=== PATIENT | female | born 1945 | race Caucasian/White ===

== ENCOUNTER 2016-08-13 10:58 | Inpatient (IN) | payer MEDICARE ==
[2016-08-13] VITALS (11 sets, daily range): BP systolic 112–135; BP diastolic 54–78; PULSE 71–93; RESP 14–19; O2SAT 90–98
[~2016-08-13] VITALS: Ht 157.5 cm; Wt 99.8 kg
[~2016-08-13 10:58] MED LIST: ALBU18HF INH; ALPR0.5T8 PO; AMLO5TAB2 PO; ARFO15VI2 IH; ATRINH INH; BUDE1AMP2 IH; CHOL40003 PO; CYCL5TAB PO; FLUT16SP NS; FURO-128 PO; HYDR-4003 PO; LEVO200T6 PO; LISI-567 PO; LOPE1TAB13 PO; MAGN400T4 PO; METO25TA6 PO; OLAN2.5T20 PO; ONDA4TAB9 PO; OXYC5TAB72 PO; POLY17PO6 PO; POTA-62 PO; RNT300T PO; TRAZ-118 PO; VENL37.57 PO
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
[2016-08-13] MEDS ORDERED: HYDROmorphone 0.5 mg/0.5 mL iSecure Syringe IVPUSH ONE (11:15)
[2016-08-13] MEDS ORDERED: Ondansetron 2 mg/mL 2 mL Inj IVPUSH ONE (11:15)
[2016-08-13] MEDS ORDERED: 0.9% Sodium Chloride 1,000 ML IV ONE ×3 (11:15→15:05)
[2016-08-13 11:42] LABS: BASOPHILS % (AUTO) 0.6 % (0-3); EOSINOPHILS % (AUTO) 0.6 % (0-5); MONOCYTES % (AUTO) 6.9 % (4-12); Mean Corpuscular Hemoglobin 32.3 pg (27.0-35.0); Mean Corpuscular Volume 88.3 fL (81-100); NEUTROPHILS % (AUTO) 76.9 % (40-74); Platelet Count 181 bil/L (150-400)
[2016-08-13] MEDS ORDERED: OMEP20TA86 PO (11:52)
[2016-08-13] MEDS ORDERED: D5 0.45% NaCl + KCl 40 mEq/L 1,000 ML IV STA (12:17)
[2016-08-13] MEDS ORDERED: Potassium Chloride 20 mEq/15 mL 15mL Oral Soln TUBE SCH (12:30)
--- NOTE | 2016-08-13 13:17 | DRSVH ---
PROCEDURE: CT BRAIN WITHOUT CONTRAST ([id number]) INDICATIONS: altered LOC TECHNIQUE: Noncontrast 4.5 mm thick angled axial sections acquired from the foramen magnum to the vertex, with c oronal reformats. COMPARISON: None. FINDINGS: Image quality: Excellent. CSF spaces: Basal cisterns are patent. No extra-axial fluid collections. The ventricles are symmet song in size and shape. Brain: No intracranial bleeds or masses. There is cerebral volume loss for age, with resultant vent ricular and sulcal prominence. There are periventricular and deep white matter chronic small vessel ischemic changes. There is intracranial internal carotid artery atherosclerosis. Skull and face: Calvarium and visualized facial bones appear intact, without suspicious lesions. Sinuses: Visualized sinuses and mastoids are clear. IMPRESSION: No definite, acute intracranial abnormality is seen. If there is strong clinical suspicion for an acute stroke, please consider an MRI for further evaluat ion, as it is more sensitive (assuming that there is no contraindication to MRI). Note is made of age-appropriate brain parenchymal volume loss and chronic small vessel ischemic lozano es. Dictated by: Olayinka Thurman M.D. on 08/13/2016 at 12:14 Approved by: Olayinka Thurman M.D. on 08/13/2016 at 12:14
--- NOTE | 2016-08-13 13:19 | DRSVH ---
PROCEDURE: X-RAY CHEST ONE VIEW, PORTABLE ([id number]) INDICATIONS: SHORTNESS OF BREATH TECHNIQUE: One view of the chest was acquired. COMPARISON: [facility], CT, CT ABD PELVIS W CON, 06/25/2016, 14:46. [facility], CR, XR CHEST 1VW (PORTABLE), 05/22/2016, 19:51. FINDINGS: Surgical changes and devices: None. Lungs and pleura: No pleural effusions or pneumothorax. Lungs are clear. Mediastinum: Mediastinal contours appear normal. Heart size is normal. Retrocardiac hiatal hernia s table compared to prior examinations. Bones and chest wall: No suspicious bony lesions. Overlying soft tissues appear unremarkable. IMPRESSION: No acute cardiopulmonary disease process. Dictated by: April Serrano MD, PhD on 08/13/2016 at 13:18 Approved by: April Serrano MD, PhD on 08/13/2016 at 13:18
[2016-08-13] MEDS ORDERED: Potassium Chloride 20 mEq/15 mL 15mL Oral Soln PO ONE (13:25)
[2016-08-13] MEDS ORDERED: Potassium Phos (mEq) Inj 40 MEQ in Dextrose 5% 500 ML IV ONE (13:35)
--- NOTE | 2016-08-13 13:44 | DRSVH ---
PROCEDURE: CT ABDOMEN AND PELVIS WITH CONTRAST ([id number]) INDICATIONS: Abd pain TECHNIQUE: After the administration of intravenous contrast, 5 mm thick sections acquired from the diaphragm to the symphysis. 5 mm coronal and sagittal reformats were acquired. For radiation dose reduction, the following was used: automated exposure control, adjustment of mA and/or kV according to patient siz e. COMPARISON: [facility], [place], [place] GASTRIC EMPTYING STUDY, 05/10/2016, 8:49. [facility], CT, CT ABD PANCREATIC PROTOCOL, 02/08/2016, 9:57. [facility], CT, ABD/PELVIS W/ CON (PNL), 11/13/2011, 14:48. [facility], CT, ABD/PELVIS W/CON (PNL), 12/31/2009, 21:38. MR, ABDOMEN W/O CONTRAST, 05/05/2007, 8:06. [facility] [place] , CT, ABD/PELVIS W/CON (PNL), 04/23/2007, 12:59. [facility], CT, CT ABD PELVIS W CON, 06/25/2016, 14:46. FINDINGS: Image quality: Excellent. ABDOMEN: Lung bases: Lung bases are clear. Trace bilateral pleural fluid collections are noted. Heart size is normal. Solid organs: Liver and spleen are normal in size and enhancement. Diffuse fatty infiltration of the liver is noted. Gallbladder is surgically absent. Biliary system is non dilated. Pancreas enhance s normally. Left adrenal nodule stable compared to prior exams. Kidneys demonstrate normal size and e nhancement, without hydronephrosis. Peritoneum and bowel: Moderate size hiatal hernia is noted. Bowel loops demonstrate normal wall thic kness and caliber. Small amount of scattered ascites is noted. No free air. The appendix is enlarged 1.3 cm in diameter. There is circumferential wall thickening involving the majority of the colon. Cir cumferential wall thickening involving the terminal ileum is noted. Scattered diverticuli noted in th e transverse, descending and sigmoid colon. Nodes and vessels: No retroperitoneal or mesenteric adenopathy by size criteria. Aorta and inferior vena cava are normal in size. Miscellaneous: No ventral hernias. Subcutaneous stranding noted in the anterior pelvic wall compatib le with panniculitis. PELVIS: Genitourinary: Bladder wall thickening is noted. Miscellaneous: No inguinal hernias or adenopathy. Bones: Grade 2 L5-S1 isthmic spondylolisthesis is noted. Compression deformity of the T12 vertebral b slade is stable compared to prior examination. Multilevel degenerative disc disease and facet arthropat hy are noted. IMPRESSION: 1. Circumferential wall thickening involving the colon compatible with nonspecific colitis which has progressed in interval since prior examination obtained 06/17/2016. Differential diagnosis includes i nfectious/inflammatory, ischemic and neoplastic etiologies. 2. Circumferential wall thickening involving the terminal ileum has developed interval since the prio r examination. Finding compatible with nonspecific terminal ileitis but may be related to "some backw panda ileitis" secondary to colitis. 3. Enlarged appendix measuring 1.3 cm in diameter which could be related to appendicitis or a reactiv e change associated with colitis. Please correlate with clinical data. 4. Small amount of scattered ascites. 5. Colonic diverticulosis no evidence of diverticulitis. 6. Panniculitis. 7. Hepatic steatosis. 8. Moderate-sized hiatal hernia. 9. Trace bilateral pleural effusions. 10. Urinary bladder wall thickening which could be due to nondistention versus inflammation/infection . Please correlate with clinical and urinalysis data. 11. Stable left adrenal nodule. 12. Findings telephoned to Dr. Sudheer Alva on 08/13/2016 at 1337 hrs. Dictated by: April Serrano MD, PhD on 08/13/2016 at 13:43 Approved by: April Serrano MD, PhD on 08/13/2016 at 13:43
[2016-08-13] MEDS ORDERED: 0.9% Sodium Chloride 1,000 ML IV SCH (14:43)
[2016-08-13] MEDS ORDERED: Thiamine Inj 100 MG, Folic Acid Inj 1 MG, Magnesium Sulfate 50% Inj 2 GM, Multivitamins... IV ONE ×5 (14:45)
[2016-08-13] MEDS ORDERED: AMLO10TA3 PO (14:54)
[2016-08-13] MEDS ORDERED: POTA10TA12 PO (14:59)
[2016-08-13 15:09] LABS: INR 1.01 ratio
--- NOTE | 2016-08-13 15:18 | PCM.HPMED ---
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 In ER, 2L O2, Ct consistent w/ additional ileitis/thickened bladder, Gen Surg-Umberto indicated non-op. poor historian. she continues to say that she is good throughout entire evaluation. tarry stool/altered x 3 days per , last etOH x over 5 days, smoked today. Review of Systems -unable to asses due to poor historian recent dysphagia evaluation at , w/ etoh pt gags per . FAMILY HX no diverticulitis. SOCIAL HX smoker/EtOH 3-5 per day MEDICATIONS Scheduled Amlodipine (Amlodipine) 5 Mg Tablet 5 MG PO DAILY Arformoterol Tartrate (Brovana) 15 Mcg/2 Ml Vial.neb 15 MCG IH BID Budesonide (Budesonide) 1 Mg/2 Ml Ampul.neb 1 MG IH DAILY Cholecalciferol (Vitamin D3) (Vitamin D3) 4,000 Unit Capsule 4,000 UNIT PO DAILY Fluticasone Propionate (Fluticasone Propionate Nasal) 16 Gm [place].susp 2 SPRAY NS DAILY Furosemide (Lasix) 40 Mg Tablet 40 MG PO DAILY Ipratropium [place] (Atrovent HFA) 200 Puff/12.9 Gm Inhaler 2 PUFF INH QID Levothyroxine (Levothyroxine) 200 Mcg Tablet 225 MCG PO DAILY Lisinopril (Lisinopril) 20 Mg Tablet 40 MG PO DAILY Magnesium Oxide (Magnesium Oxide) 400 Mg Tablet 400 MG PO DAILY Metoprolol Tartrate (Metoprolol Tartrate) 25 Mg Tablet 50 MG PO BID Olanzapine (Olanzapine) 2.5 Mg Tablet 2.5 MG PO HS Omeprazole (Omeprazole) 20 Mg Tablet.dr 40 MG PO BID Polyethylene Glycol 3350 (Miralax) 17 Gm Powd.pack 17 GM PO DAILY Potassium Chloride ER (Potassium Chloride ER) 20 Meq Tablet.er 10 MEQ PO BID TAKE WITH FOOD Ranitidine (Zantac) 300 Mg Tab 300 MG PO HS Trazodone (Trazodone) 100 Mg Tablet 100 MG PO HS Venlafaxine (Venlafaxine) 37.5 Mg Tablet 75 MG PO TID Scheduled PRN Albuterol Sulfate (Ventolin HFA Inhaler) 200 Puff/18 Gm Inhaler 2 PUFF INH Q4-6 HRS PRN PRN PRN For Wheezing Alprazolam (Alprazolam) 0.5 Mg Tablet 0.5 MG PO BID PRN PRN For Anxiety Cyclobenzaprine (Cyclobenzaprine) 5 Mg Tablet 5-10 MG PO BID PRN PRN Spasm Hydrocodone-Acetaminophen 5-325 mg (Hydrocodone-Acetaminophen 5-325 mg) 1 Each Tablet 1 TABLET PO BID PRN PRN For Pain Hydrocodone-Acetaminophen 5-325 mg (Hydrocodone-Acetaminophen 5-325 mg) 1 Each Tablet 1 TABLET PO Q4H PRN PRN For Pain Hydrocodone-Acetaminophen 5-325 mg (Hydrocodone-Acetaminophen 5-325 mg) 1 Each Tablet 0.5-1 TABLET PO Q6H PRN PRN For Pain Loperamide/Simethicone (Imodium Multi-Symptom Rel Cplt) 1 Each Tablet 1 EACH PO PRN PRN PRN For Diarrhea or Loose Stool Ondansetron ODT (Zofran ODT) 4 Mg Tablet 4 MG PO Q4H PRN PRN For Nausea oxyCODONE (oxyCODONE) 5 Mg Tablet 5 MG PO Q4H PRN PRN For Moderate Pain PMHX Moderate-severe mitral regurg, diastolic chf(echo 2015 EF 60-65%), htn, hyperlipidemia, CAD (cardiac cath 2013) atrial fibrillation hypothyroidism, Diverticulitis,hiatal hernia,gerd, occasional bright red blood per rectum, colon polyps asthma, copd, pneumonia UTI Knee arthroscopies, back injury Depression and anxiety presesophagus Allergies Coded Allergies: Penicillins (Verified Allergy, Severe, ANAPHYLAXIS, 08/13/16) bupropion (Verified Allergy, Intermediate, NAUSEA, 08/13/16) fluoxetine (Verified Allergy, Unknown, 08/13/16) sulfasalazine (Verified Allergy, Unknown, UNKNOWN, 08/13/16) Uncoded Allergies: FLU VACCINE (Adverse Reaction, Severe, NAUSEA/ VOMITTING, 01/24/16) PMH Social History Hx Alcohol Use: Yes (Whiskey/vodka) Alcoholic Drinks Per Day: reports 2-3 drinks a day. couple ounces per drink Hx Substance Use: No Hx Tobacco Use: Yes (Quit yesterday) Smoking Status: Current Every Day Smoker Exam Vital Signs Vital Sign - Last Date Time Temp Pulse Resp B/P Pulse Ox O2 Delivery O2 Flow Rate FiO2 08/13/16 11:04 36.5 78 18 135/70 98 Nasal Cannula 2 Lab and Diagnostics Labs Exam on admission NAD A and O x 3 mood affect WNL follows commands NC/AT no icterus no injected eyes EOMI PERRL /no pharyngeal lesions/ no oral lesions / hearing intact Supple neck CTAB equal chest rise / no accessory muscle use / speaks in full sentences / no rrw RRR S1 S2 / no mrg / 2+ radial pulses Soft nt nd + BS no hepatosplenomegaly mild bilateral edema no cyanosis no ecchymosis of lower extremities No rash / no jaundice AUGUST symmetrical faces dysarthria fecal tube placed maki dark clear EKG SR103 no ST changes CXR neg UA pending LFT elevated bili/transaminases/alk phos CT a/p grade 2 L5-S1 isthmic spondylolisthesis is noted. Compression deformity of the T12 vertebral body is stable compared to prior examination. Multilevel degenerative disc disease and facet arthropathy are noted. 1. Circumferential wall thickening involving the colon compatible with nonspecific colitis which has progressed in interval since prior examination obtained 06/17/2016. Differential diagnosis includes infectious/inflammatory, ischemic and neoplastic etiologies. 2. Circumferential wall thickening involving the terminal ileum has developed interval since the prior examination. Finding compatible with nonspecific terminal ileitis but may be related to "some backwash ileitis" secondary to colitis. 3. Enlarged appendix measuring 1.3 cm in diameter which could be related to appendicitis or a reactive change associated with colitis. Please correlate with clinical data. 4. Small amount of scattered ascites. 5. Colonic diverticulosis no evidence of diverticulitis. 6. Panniculitis. 7. Hepatic steatosis. 8. Moderate-sized hiatal hernia. 9. Trace bilateral pleural effusions. 10. Urinary bladder wall thickening which could be due to nondistention versus inflammation/infection. Please correlate with clinical and urinalysis data. 11. Stable left adrenal nodule. Result Diagram: 08/13/16 1105 08/13/16 1105 Assessment & Plan Active issues and reason for admission 71-year-old female with ongoing diarrhea/abdominal pain/progressive weakness due to known pancolitis, now spreading to ileum and associated with new hypokalemia and new hepatitis, per family Hx of CHF Colitis/ileitis, leukopenia --cipro/flagyl --pending stool cx, penidng bcx -- Clears, pending EGD and colonoscopy in the morning tarry stool --Q8Hg/ppi IV BID Elevated transaminitis/hyperbilirubinemia -- Contributory EtOH history, pending hepatitis panel, INR Elevated TSH, history of hypothyroidism -- Free T4 pending, consider IV repletion Replete potassium/magnesium -- IV fluid/banana bag thickened bladder wall , hx uti --pending UA CHF, hold home lasix lisinopril mag -metoprolol noncompliatn w/ medications Chronic issues known prior to admission, present on admission Moderate-severe mitral regurg, diastolic chf(echo 2015 EF 60-65%), htn, hyperlipidemia, CAD (cardiac cath 2013) atrial fibrillation asthma, copd, pneumonia Depression and anxiety / EtOH / smoker hiatal hernia,gerd, occasional bright red blood per rectum, colon polyps dysphagia - needs smaller pills on discharge nocturnal hypoxia s/p home O2 script by PCP 06/2016 -- PPI/CIWA/banana bag/nicotine patch Diet npo at midnight, clear for now DVT prophylaxis pending INR full [facility] and plan were discussed with patient family. Winter Vernon MD Aug 13, 2016 15:18
--- NOTE | 2016-08-13 16:47 | NUR ---
Pt admitted to [facility] at approx 1530hrs Pt arrived from the ER on a stretcher, she is weak, unable to scoot across the bed by herself. She is confused to time, date and place. She does obey simple commands. She is incontinent of stool, which is clear/brown, gelatinous like. Her buttocks and roni area is excoriated and this is cleaned and calmoseptine applied. She also has an area under her pannus that is excoriated and calmoseptine is applied to this area also. Stool was sent to the lab. Brandt and FMS was placed to protect skin and allow for accurate I&O's. anticipates lasix after K is corrected. K rider is infusing at this time and bananna bag is also started, but at 100cc/hr not the 500cc/hr listed as pt has history of CHF.
--- NOTE | 2016-08-13 16:48 | NUR ---
home medication list per and family report patient has not been taking her home medications for at least a month but "probably longer" per report. family states that patient is taking potassium every day because they give it to her. state that she takes her inhalers as needed not as ordered. state that she takes xanax and pain pills occasionally. states "she hasn't taken her blood pressure medications for at least a month but probably longer". Dr. Bradley notified of this.
[2016-08-13] MEDS ORDERED: PEG/Electrolytes 4,000 mL Solution PO ONE (17:50)
--- NOTE | 2016-08-13 17:50 | PCM.CHPMED ---
Subjective Date of Service: Aug 13, 2016 Provider requesting consult: Winter Vernon MD Primary Physician: Admitting Physician: Emily Bush MD Primary Care Physician: Davin Galan MD Attending Physician: Emily Bush MD Chief Complaint: Chief Complaint: Hematochezia, abdominal pain, N/V/D History of Present Illness: Patient is a 71 year old female with a history of hypertension, CHF, COPD, mitral valve regurgitation, GERD for 20 years, and heavy alcohol abuse since age of 22 who presents with abdominal pain, bloody diarrhea and melena, nausea, and vomiting. Patient states that she has had these symptoms along with left upper/lower abdominal pain for the past 4 years, intermittent, worse with food. She now complains of worsening left sided abdominal pain, worsening diarrhea, and worsening nausea and vomiting. About 4 days ago, she began to have red blood in her diarrhea, which quickly converted to "pitch black stool", per her . She has been having progressively worsening weakness over the last several days, eventually unable to walk. She has not been eating for the past few days and has been too weak to get alcohol, so has not drank since last Saturday, per her family. Her mental status is currently altered and she is poorly verbal, so history was provided mostly by her family. Patient had a CT abdomen and pelvis with contrast on 06/25/16 which showed diffuse thickening throughout the entire colon along with a possible colonic vesicular fistula. She saw Dr. Taveras in clinic on 08/07/16, who ordered multiple studies. Celiac panel and IgA were normal, Chromogramin A was elevated at 30 ( normal 0-5). Multiple imaging studies and an upper/lower endoscopy were also scheduled, but she presented to the ER before these were completed. Family denies NSAID use or Tylenol use, though she takes [place]. Last colonoscopy was 1- 2 years ago, which showed polyps. No history of colon cancer, celiac disease, Crohn's, or UC. On admission, O2 was 93 on 2L NC. WBC 3.5, K 2, Cl 82, CO2 43. Total bilirubin was 1.6, AST 200, ALT 92, alk phos 290, albumin 2.6, lipase 16. Lactic acid 1.7. Salicylates, APAP, EtOH all normal. CT abdomen/pelvis showed circumferential wall thickening involving the colon and ileum, as well as enlarged appendix, panniculitis, hepatic steatosis, moderate hiatal hernia, and urinary bladder wall thickening. Review of Systems: Comprehensive review of systems conducted and was negative except for the pertinent positives listed above. PMH Past Medical History Mitral valve regurgitation, cardiac cath 02/2014 with normal coronaries. Echo 01/2015 LVEF 40-45% severe MR. Hiatal hernia Cardiomegaly Hypothyroidism [place] Colitis 05/2016 Diverticulosis Chronic insomnia Asthma COPD Congestive heart failure GERD Hyperlipidemia Hypertension Allergies: Coded Allergies: Penicillins (Verified Allergy, Severe, ANAPHYLAXIS, 08/13/16) bupropion (Verified Allergy, Intermediate, NAUSEA, 08/13/16) fluoxetine (Verified Allergy, Unknown, 08/13/16) sulfasalazine (Verified Allergy, Unknown, UNKNOWN, 08/13/16) Uncoded Allergies: FLU VACCINE (Adverse Reaction, Severe, NAUSEA/ VOMITTING, 01/24/16) Social History Hx Alcohol Use: YesAlcoholic Drinks Per Day: reports 2-3 drinks a day. couple ounces per drinkHx Substance Use: NoHx Tobacco Use: Yes (Quit yesterday) Smoking Status: Current Every Day Smoker Exam Vital Signs Vital Sign - Last Date Time Temp Pulse Resp B/P Pulse Ox O2 Delivery O2 Flow Rate FiO2 08/13/16 15:34 36.3 93 19 119/78 93 Nasal Cannula 2.00 Additional Information: General: Alert, Disoriented, Poorly verbal, Cooperative, Appears severely fatigued and chronically ill. Poorly verbal. Head: Normocephalic, atraumatic. External ears normal. Eyes: PERRLA, EOMI. Anicteric sclerae. Mouth: Mouth Normal, Mucous Membranes Dry Chest & Lungs: Clear to auscultation bilaterally with no crackles, wheezes, or rhonchi. Cardiovascular: Regular Rate/Rhythm, Normal S1, Normal S2, No Murmurs/Rubs/ Gallops Abdomen: LUQ/LLQ tenderness, Non-distended, No masses, Normoactive bowel tones , Soft Musculoskeletal: Normal Range of Motion Extremities: No cyanosis/clubbing/edema bilaterally Neurological: Grossly Neurologically Intact, Poorly Verbal Lab and Diagnostics Result Diagram: 08/13/16 1105 08/13/16 1105 Assessment & Plan Assessment Patient is a 71 year old female with a history of hypertension, CHF, COPD, mitral valve regurgitation, GERD for 20 years, and heavy alcohol abuse since age of 22 who presents with abdominal pain, bloody diarrhea and melena, nausea, and vomiting. Upper GI bleed, acute. - Pt presents with "pitch black stools" after a brief episode of red stool. Given her history of GERD, peptic ulcer disease is possible. CT abdomen and pelvis with contrast on 06/25/16 which showed diffuse thickening throughout the ileum and entire colon along with a possible colonic vesicular fistula. Given the presence of possible fistula, consider Crohn's. Hb is normal at this time. Celiac panel was negative. - Will proceed with upper and lower endoscopy. Will attempt bowel prep tonight but unsure about success given pt's mental status. May have to do upper endoscopy first and prep for colonoscopy once mental status improves. - Recommend stool PCR - Continue to monitor H&H, transfuse if necessary Colitis, acute. - Pt presents with diffuse ileal and colonic thickening on CT scan and upper GI bleed. Appendix appeared to be involved but likely secondary to colitis rather than isolated appendicitis. DDx includes IBS, infectious colitis, - Will proceed with upper and lower endoscopy - Stool PCR pending Possible colovesicular fistula - CT abd/pelvis shows possible colovesicular fistula, with thickened bladder wall. Suspicious for Crohn's disease vs chronic colonic inflammation. - Recommend UA given possible colovesicular fistula Elevated LFTs, acute - T bili, AST, ALT, alk phos all elevated, likely secondary to alcohol. Bilirubin elevated but pt is s/p cholecystectomy, so likely due to hepatic insult. Discriminant function score 0.6, which indicates good prognosis and low benefit from steroid treatment. Salicylates, EtOH, and APAP all negative on admission. - Avoid hepatotoxic medications - Continue to monitor CMP History of alcohol abuse - Pt has history of substantial alcohol abuse, reportedly drinking 1/2 gallon of vodka every 1-2 days for several years. Last drink was last Saturday due to poor oral intake and severe weakness. EtOH negative on admission. - Monitor for signs of withdrawal. - IV thiamine recommended Problems: Neri Pittman Aug 13, 2016 17:50
[2016-08-13] MEDS: Pantoprazole 4 mg/mL 10 mL Inj IVPUSH SCH (21:01)
[2016-08-13] MEDS: metroNIDAZOLE Inj 500 MG in IV Premix 1 EACH IV SCH (21:02)
[2016-08-13 21:29] LABS: Magnesium 2.1 mg/dL (1.6-2.6)
[2016-08-13] MEDS: Ciprofloxacin Inj 400 MG in IV Premix 1 EACH IV SCH (22:58)
[2016-08-13] MEDS: POTASSIUM CHLORIDE 20 MEQ PO SCH (22:59)
[2016-08-13] MEDS: Ondansetron 2 mg/mL 2 mL Inj IVPUSH PRN (22:59)
[2016-08-13] MEDS: Albuterol-Ipratropium 3 mL Inhalation Solution NEB SCH (23:33)
[2016-08-14] VITALS (14 sets, daily range): BP systolic 92–112; BP diastolic 54–72; PULSE 65–84; RESP 14–22; O2SAT 90–97
[2016-08-14] MEDS: metroNIDAZOLE Inj 500 MG in IV Premix 1 EACH IV SCH ×3 (01:29→18:29)
[2016-08-14] MEDS: POTASSIUM CHLORIDE 20 MEQ PO SCH (01:29)
[2016-08-14 02:50] LABS: APPEARANCE,URINE HAZY (CLEAR,HAZY); COLOR,URINE DARK YELLOW (YELLOW); OCCULT BLOOD,URINE SMALL (NEGATIVE); UROBILINOGEN,URINE NORMAL (NORMAL)
[2016-08-14 02:51] LABS: ICTOTEST,URINE POSITIVE (Negative)
[2016-08-14] MEDS ORDERED: Potassium Chloride 20 mEq/15 mL 15mL Oral Soln PO ONE (03:25)
[2016-08-14 04:05] LABS: Magnesium 2.1 mg/dL (1.6-2.6)
[2016-08-14 04:07] LABS: Hepatitis A Antibody IgM Negative (Negative); Hepatitis B Core Antibody IgM Negative (Negative)
[2016-08-14 04:10] LABS: Mean Corpuscular Hemoglobin 31.8 pg (27.0-35.0); Mean Corpuscular Volume 90.1 fL (81-100)
[2016-08-14] MEDS: Vancomycin 250 mg Oral Capsule PO SCH ×4 (05:05→21:57)
[2016-08-14] MEDS: KCl 40 mEq/D5W 500 mL 40 MEQ in IV Premix 1 EACH IV SCH ×2 (05:06→07:40)
[2016-08-14] MEDS: Pantoprazole 4 mg/mL 10 mL Inj IVPUSH SCH ×2 (08:29→18:29)
[2016-08-14] MEDS: Albuterol-Ipratropium 3 mL Inhalation Solution NEB SCH ×4 (08:51→21:13)
[2016-08-14] MEDS: Budesonide 0.5 mg/2 mL Inhalation Solution NEB PRN (08:52)
[2016-08-14] MEDS ORDERED: 0.9% Sodium Chloride 1,000 ML IV ONE ×2 (09:05→13:55)
--- NOTE | 2016-08-14 09:26 | ABG ---
DateTimeAnalyzed 09:21:00 -_ pH ____7.520 - 7.350 7.450 pCO2 ___55.4__ -mmHg 35.0 45.0 pO2 ___65.1__ -mmHg 69.0 116 HCO3- ___45.0__ -mmol/L 22.0 26.0 ABE ___18.9__ -mmol/L -2.0 2.0 tHb ___11.1__ -g/dL O2Hb ___90.6__ -% COHb ____1.1__ -% MetHb ____1.1__ -% sO2 ___92.6__ -% FIO2 ___32.0__ -% Drawn By gj - Date/Time Notified____ 09:25:00 -_ Liter_Flow ____3.0__ -L/min Oxygen Device 1 __CANNULA - Notified By gj - Notified Whom __YANCHUK - B 749 -mmHg tO2 ___14.1__ -Vol% Jassi test _Positive -
[2016-08-14] MEDS: Ciprofloxacin Inj 400 MG in IV Premix 1 EACH IV SCH ×2 (10:04→21:57)
[2016-08-14] MEDS ORDERED: Sodium Chloride LOK Flush 10 mL Syringe IVFLUSH PRN ×2 (10:35)
[2016-08-14] MEDS ORDERED: KCl 40 mEq/D5W 500 mL 40 MEQ in IV Premix 1 EACH IV SCH (11:55)
[2016-08-14 12:01] LABS: T4 (Thyroxine) 2.5 ug/dL (4.7-13.3)
[2016-08-14] MEDS: Thiamine Inj 100 MG in 0.9% Sodium Chloride 100 ML IV SCH (12:54)
[2016-08-14] MEDS ORDERED: Propofol 10,000 mCg/mL 20 mL Inj ONE (13:44)
[2016-08-14] MEDS ORDERED: KCl 40 mEq/D5W 500 mL 40 MEQ in IV Premix 500 EACH IV ONE ×2 (13:55→17:50)
[2016-08-14] MEDS ORDERED: fentaNYL-PF 50 mCg/mL 2 mL Inj ONE (14:23)
--- NOTE | 2016-08-14 16:30 | ENDO ---
[address] [address] ENDOSCOPY PROCEDURE PATIENT: VENANCIO GOMEZ : 1945 MR#: [id number] ADMIT: 08/13/2016 JOB ID: [id number] OPERATION: Esophagogastroduodenoscopy with biopsy. PREOPERATIVE DIAGNOSIS(ES): Melena. POSTOPERATIVE DIAGNOSIS(ES): 1. Widely open, patent Schatzki ring. 2. Mild nonerosive gastritis. 3. A large hiatal hernia measuring from 33-40 cm from the incisors. ANESTHESIA: Monitored anesthesia care. COMPLICATIONS: None. BLOOD LOSS: Minimal. DESCRIPTION OF PROCEDURE: After risks and benefits were explained, the patient's informed consent was obtained. After anesthesia administered, upper endoscope was then inserted in the mouth, intubating the esophagus, stomach, second portion of duodenum and mucosa examined. After procedure was done, the scope was withdrawn and procedure terminated. Upon inspection of the esophagus, there was a widely open, patent Schatzki ring at the distal esophagus. Z-line located 33 cm from incisors. Upon entering the stomach, there was mild nonerosive gastritis that was seen. No masses, ulcers, or lesions were seen. Retroflexion showed a large hiatal hernia measuring from 33-40 cm from the incisors. Duodenal bulb, first and second portion, were normal. Biopsies taken of antrum and body of the stomach. No overt signs of bleeding were seen throughout the entire upper endoscopy. IMPRESSIONS: 1. Schatzki ring. 2. Large hiatal hernia from 32-40 cm from the incisors. 3. Mild nonerosive gastritis. RECOMMENDATIONS: 1. Protonix 40 mg by mouth twice a day. 2. Start clear liquid diet.
[2016-08-14] MEDS ORDERED: Lactated Ringer's 1,000 ML IV SCH (16:43)
--- NOTE | 2016-08-14 16:43 | PCM.HPANE ---
Patient Data Surgeon Admitting Provider:Emily Bush MD Attending Provider:Emily Bush MD Primary Care Physician:Davin Galan MD Other Provider: Reason for Visit Colitis/Severe Hypokalemia Ht/WT & BMI Height (Feet): 5 Height (Inches): 2.00 Weight (Kilograms): 98.000 Body Mass Index 39.00 Allergies Coded Allergies: Penicillins (Verified Allergy, Severe, ANAPHYLAXIS, 08/13/16) bupropion (Verified Allergy, Intermediate, NAUSEA, 08/13/16) fluoxetine (Verified Allergy, Unknown, 08/13/16) sulfasalazine (Verified Allergy, Unknown, UNKNOWN, 08/13/16) Uncoded Allergies: FLU VACCINE (Adverse Reaction, Severe, NAUSEA/ VOMITTING, 01/24/16) Past Anesthesia History Anesthesia History: Denies:: Abnormal Airway, Anesthesia Reactions, Difficult Intubation, Fam Anesthesia Reaction, Fam Malignant Hypertherm, Malignant Hyperthermia Diabetes History Hx Diabetes?: No MRSA MRSA: No Medications Reported Medications Potassium Chloride ER 10 Meq Fzlfpi50 Meq PO BID #60 08/13/16 Hydrocodone-Acetaminophen 5-325 mg 1 Each Tablet1 Tablet PO BID PRN For Pain Ref 0 01/24/16 Budesonide 1 Mg/2 Ml Ampul.neb1 Mg IH DAILY PRN For Shortness of Breath 01/24/16 Arformoterol Tartrate (Brovana)15 Mcg/2 Ml Vial.neb15 Mcg IH BID PRN For Shortness of Breath 01/24/16 Ipratropium [place] (Atrovent HFA)200 Puff/12.9 Gm Inhaler2 Puff INH QID PRN For Shortness of Breath #1 INH Ref 0 01/24/16 Alprazolam 0.5 Mg Tablet0.5 Mg PO BID PRN For Anxiety 30 Days Ref 0 03/03/14 Albuterol Sulfate (Ventolin HFA Inhaler)200 Puff/18 Gm Inhaler2 Puff INH Q4-6 HRS PRN PRN For Wheezing #1 INHALER Ref 0 03/03/14 Loperamide/Simethicone (Imodium Multi-Symptom Rel Cplt)1 Each Tablet1 Each PO PRN PRN For Diarrhea or Loose Stool 03/03/14 Discontinued Reported Medications Amlodipine 10 Mg Xbaprn17 Mg PO DAILY #90 08/13/16 Omeprazole 20 Mg Tablet.dr40 Mg PO BID Ref 0 08/13/16 Cholecalciferol (Vitamin D3) (Vitamin D3)4,000 Unit Capsule4,000 Unit PO DAILY 01/24/16 Olanzapine 2.5 Mg Tablet2.5 Mg PO HS Ref 0 01/24/16 Cyclobenzaprine 5 Mg Tablet5-10 Mg PO BID PRN Spasm 01/24/16 Amlodipine 5 Mg Tablet5 Mg PO DAILY Ref 0 01/24/16 Fluticasone Propionate (Fluticasone Propionate Nasal)16 Gm [place].susp2 [place] NS DAILY #16 GM Ref 0 01/25/15 Ranitidine (Zantac)300 Mg Ffa464 Mg PO HS 30 Days Ref 0 01/25/15 Venlafaxine 37.5 Mg Mybrni44 Mg PO TID #60 TABLET Ref 0 11/08/14 Metoprolol Tartrate 25 Mg Qjubyw92 Mg PO BID 30 Days Ref 0 11/08/14 Lisinopril 20 Mg Ckhmmz96 Mg PO DAILY 30 Days Ref 0 11/08/14 Magnesium Oxide 400 Mg Auprhz115 Mg PO DAILY 03/03/14 Potassium Chloride ER 20 Meq Tablet.er10 Meq PO BID 30 Days Ref 0 TAKE WITH FOOD 03/03/14 Trazodone 100 Mg Mcluhv855 Mg PO HS #30 TABLET Ref 0 03/03/14 Levothyroxine 200 Mcg Pqdssw374 Mcg PO DAILY 30 Days Ref 0 03/03/14 Discontinued Scripts Hydrocodone-Acetaminophen 5-325 mg 1 Each Tablet0.5-1 Tablet PO Q6H PRN For Pain #20 TABLET Ref 0 Prov:Sudheer Alva MD 07/11/16 Hydrocodone-Acetaminophen 5-325 mg 1 Each Tablet1 Tablet PO Q4H PRN For Pain #8 TABLET Prov:Raymundo Prince DO 06/25/16 Ondansetron ODT (Zofran ODT)4 Mg Tablet4 Mg PO Q4H PRN For Nausea #14 TABLET Prov:Earle Aviles MD 05/22/16 oxyCODONE 5 Mg Tablet5 Mg PO Q4H PRN For Moderate Pain #30 TABLET Prov:Rob Naranjo MD 02/01/16 Polyethylene Glycol 3350 (Miralax)17 Gm Powd.pack17 Gm PO DAILY #30 Prov:Rob Naranjo MD 02/01/16 Furosemide (Lasix)40 Mg Afhdki01 Mg PO DAILY #30 TABLET Ref 0 Prov:Antwan Garcia DO 01/27/15 History History of ENT Problems?: Yes HEENT History: Positive for:: Cataracts Denies:: Abnormal Airway Difficult Intubation Dysphagia Hearing Problem Sinus Problem Hx of Heart Problems?: Yes Cardiovascular History: Positive for:: Atrial Fibrillation Cardiac Surgery (HEART CATH 02/2014) Chest Pain Congestive Heart Failure Edema Heart Murmur (GR II/ HOLOSYST. ECHO 10/2015 EF 60-65%) Hypertension Irregular Heartbeat (HX A FIB) Valvular Heart Disease (MOD-SEVERE MR) Denies:: AICD Pacemaker Thrombophlebitis Hx of Respiratory Problem?: Yes Respiratory History: Positive for:: COPD (PFT 10/2015 SHOW MOD OBSTR AIRWAY DISEASE W/ SEVERE AIR TRAPPING) Dyspnea Pneumonia (HX OF) Use of C-PAP Machine (TATE+ PT STOPPED USING BIPAP) Denies:: Asthma Chest Surgery Cough Emphysema Hemoptysis Tuberculosis Hx Neurologic Problems?: Yes Neurological History: Denies:: CVA Dementia Hx of GI Problems?: Yes Gastrointestinal History: Positive for:: Diverticulitis Gastroesphageal Reflux Gastrointestinal Bleeding Heartburn Hiatal Hernia Rectal Bleeding (OCCASIONAL BRIGHT RED W/ DIARRHEA, HX COLON POLYPS) Denies:: Cirrhosis Hepatitis Hx of Problems?: Yes Genitourinary History: Positive for:: Urinary Tract Infection (HX OF) Denies:: HX of Hemodialysis Kidney Stones HX of Peritoneal Dialysis: No Female Hx: Denies:: Currently Endometriosis Pelvic Inflammatory Problems with Breasts? 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 Denies:: Blood Transfuse Reaction Blood Transfusions Hx Diabetes: No Hx Alcohol Use: YesAlcoholic Drinks Per Day: reports 2-3 drinks a day. couple ounces per drinkHx Substance Use: No Smoking Status: Current Every Day Smoker Have You Smoked inLast 12 mo: YesApprox How Many Cigarettes/day: 1 pack/day x 55 years Stop/Bang Treated for Sleep Apnea?: No (pt was seen at sleep lab but had trouble getting a cpap) S-Snoring: Do You Snore Loudly: Yes T-Tired: feel tired, fatigued: Yes O-Obsered: Observed not breath: No P-Blood Pressure: treated: No B- Body Mass Index > 35 kg/m2: Yes A- Age over 50: Yes N- Neck Large Circumference: No G- Gender Male: No TATE Total Score: 4 TATE Risk Assessment: High Risk, =/>3 Yes TATE Category 2: Yes Risk Assessment Category Category 1A: Patient has history of documented sleep apnea, and HAS NOT received any narcotic, sedative or anesthesia administration during this stay. Category 1B: Patient has history of documented sleep apnea, and HAS received any narcotic , sedative or anesthesia administration during this stay Category 2: Patient has SUSPECTED Obstructive Sleep Apnea, and HAS received any narcotic , sedative or anesthesia administration during this stay. Category 3: Patient has SUSPECTED Obstructive Sleep Apnea and HAS NOT received narcotic, sedative or anesthesia administration during this stay. Category 4: Outpatient in Procedural Areas with known sleep apnea or who screen positive for High Risk via the STOP/BANG questionnaire. Exam Exam Vital Signs Vital Signs Date Time Temp Pulse Resp B/P Pulse Ox O2 Delivery O2 Flow Rate FiO2 08/14/16 16:35 73 18 106/72 Nasal Cannula 4 08/14/16 16:23 75 14 103/65 90 Nasal Cannula 4 08/14/16 16:14 65 18 98/63 94 Nasal Cannula 4 08/14/16 13:04 73 16 97 Nasal Cannula 3.00 08/14/16 08:52 79 16 91 Nasal Cannula 3.00 General Appearance: Alert, Oriented X3, Cooperative, No Acute Distress HEENT/AIRWAY: MP 2 Lungs: Clear to Auscultation, Normal Air Movement Heart: Exam Unremarkable, Regular Rate/Rhythm, No Murmurs/Rubs/Gallops Meds/Labs/Diagnostics Admission Meds Current Medications Thiamine HCl 100 mg/Sodium Chloride 101 ml @ 200 mls/hr DAILY IV Last administered on 08/14/16 12:54; Start 08/14/16 at 08:30; Stop 08/16/16 at 09:01 Ciprofloxacin Lactate/Premix (Cipro Inj/IV Premix) 200 ml @ 200 mls/hr Q12 IV Last administered on 08/14/16 10:04; Start 08/13/16 at 20:30 Levothyroxine Sodium (Synthroid) 225 mcg ONCE ONCE PO Last administered on 23:00; Start 08/13/16 at 17:05; Stop 08/13/16 at 17:13; Status DC Pantoprazole (Protonix Inj) 40 mg BIDAC IVPUSH Last administered on 08/14/16 08:29; Start 08/13/16 at 17:10 Levothyroxine Sodium/ Levothyroxine Sodium (Synthroid/ Synthroid) 225 mcg DAILYAC PO Last administered on 08/13/16 23:13; Start 08/14/16 at 07:30 Nystatin (Mycostatin Cream) 1 applic BID TOPICAL Last administered on 08:29; Start 08/13/16 at 20:30 Potassium Chloride (K-Dur) 40 meq Q2H PO Last administered on 08/14/16 01:29; Start 08/13/16 at 22:05; Stop 08/14/16 at 00:06; Status DC Potassium Chloride (Potassium Chloride Oral Soln) 40 meq NOW ONCE PO Last administered on 08/14/16 05:05; Start 08/14/16 at 03:25; Stop 08/14/16 at 03:28 ; Status DC Vancomycin HCl 250 mg 250 mg Q6 PO Last administered on 08/14/16 08:29; Start 08/14/16 at 03:30 Potassium Chloride In D5W 40 meq/Premix 500 ml @ 125 mls/hr Q4H IV Last administered on 08/14/16 05:06; Start 08/14/16 at 03:40; Stop 08/14/16 at 11:39 ; Status DC Sodium Chloride 1,000 ml @ 250 mls/hr Q4H ONCE IV Last administered on 10:03; Start 08/14/16 at 09:05; Stop 08/14/16 at 13:04; Status DC Potassium Chloride In D5W 40 meq/Premix 500 ml @ 125 mls/hr Q4H IV Last administered on 08/14/16 12:53; Start 08/14/16 at 11:55; Stop 08/14/16 at 15:54 ; Status DC Sodium Chloride (Normal Saline) 1,000 ml @ 250 mls/hr Q4H ONCE IV Last administered on 08/14/16t 15:52; Start 08/14/16 at 13:55; Stop 08/14/16 at 17:54 Labs Test 08/13/16 11:05 08/13/16 11:55 08/13/16 16:10 08/14/16 00:00 Neutrophils (%) (Auto) 76.9% (40-74) Lymphocytes (%) (Auto) 14.7% (14-46) Monocytes (%) (Auto) 6.9% (4-12) Eosinophils (%) (Auto) 0.6% (0-5) Basophils (%) (Auto) 0.6% (0-3) Prothrombin Time 10.8sec (8.1-12.5) Prothromb Time International Ratio 1.01ratio Lipase 16U/L (13-60) Salicylates Level < 3.0ug/mL (30-250) Acetaminophen Level < 15.0ug/mL Rx (10-25) Alcohol, Quantitative < 10mg/dL (0-10) Lactic Acid Level 1.7mmol/L (0.4-2.0) Ammonia 45ug/dL (18-53) Hepatitis A IgM Antibody Negative (Negative) Hepatitis B Surface Antigen Negative (Negative) Hepatitis B Core IgM Antibody Negative (Negative) Hepatitis C Antibody <0.1s/co ratio (0.0-0.9) Hepatitis C Comment Comment (.) White Blood Count 4.2th/mm3 (3.8-10.1) Red Blood Count 3.52mil/mm3 (3.90-5.20) Hematocrit 31.7% (35.0-46.0) Mean Corpuscular Volume 90.1fL (81-100) Mean Corpuscular Hemoglobin 31.8pg (27.0-35.0) Mean Corpuscular Hemoglobin Concent 35.3% (32.0-37.0) Red Cell Distribution Width 22.3% (12.3-15.4) Platelet Count 135bil/L (150-400) Test 08/14/16 01:30 08/14/16 03:07 08/14/16 09:10 08/14/16 11:09 Urine Color Dark yellow (YELLOW) Urine Appearance Hazy (CLEAR,HAZY) Urine pH 7.0 (5.0-8.0) Urine Specific [place] 1.065 (1.003-1.035) Urine Protein Negativemg/dL (NEG,TRACE) Urine Glucose (UA) Negativemg/dL (NEGATIVE) Urine Ketones Negativemg/dL (NEGATIVE) Urine Occult Blood Small (NEGATIVE) Urine Nitrite Negative (NEGATIVE) Urine Bilirubin Moderate (NEGATIVE) Urine Ictotest Positive (Negative) Urine Urobilinogen Normalmg/dL (NORMAL) Urine Leukocyte Esterase Trace (NEGATIVE) Urine RBC 3-10/hpf (0-2) Urine WBC 6-10/hpf (0-5) Urine Epithelial Cells Occasional/hpf (NONE-MOD) Urine Crystals None seen (NONE SEEN) Urine Bacteria Few/hpf (NONE-FEW) Urine Hyaline Casts None/lpf (NONE) Urine Granular Casts None seen (NONE SEEN) Urine Waxy Casts None seen (NONE SEEN) Urine Red Blood Cell Casts None seen (NONE SEEN) Urine White Blood Cell Casts None seen (NONE SEEN) Urine Mucus Present (None Seen) Urine Trichomonas None seen (NONE SEEN) Urine Yeast None (NONE SEEN) Urinalysis Comment None Urine Culture Reflexed Indicated Magnesium Level 2.1mg/dL (1.6-2.6) Total Bilirubin 0.8mg/dL (0.0-1.2) Aspartate Amino Transf (AST/SGOT) 146U/L (0-50) Alanine Aminotransferase (ALT/SGPT) 69U/L (0-32) Alkaline Phosphatase 207U/L (25-165) Total Protein 4.2g/dL (6.4-8.4) Albumin 2.0g/dL (3.4-5.0) Hemoglobin 11.5g/dL (12.0-15.6) Thyroid Stimulating Hormone (TSH) 59.580uIU/mL (0.450-4.500) Free Thyroxine 0.35ng/dL (0.82-1.77) Thyroxine (T4) 2.5ug/dL (4.7-13.3) Test 1/17/17 14:20 Sodium Level 140mEq/L (134-144) Potassium Level 2.3mEq/L (3.5-5.2) Chloride Level 90mEq/L (97-108) Carbon Dioxide Level 42mmol/L (18-29) Blood Urea Nitrogen 8mg/dL (8-27) Creatinine 0.91mg/dL (0.57-1.00) Estimat Glomerular Filtration Rate 88mL/min (>59) Glucose Level 107mg/dL (60-99) Calcium Level 7.1mg/dL (8.5-10.1) Plan Impression Patient chart reviewed, patient interviewed and anesthestic plan with risks, benefits, and alternatives discussed, and informed consent obtained. NPO Status: MIDNIGHT 02-01-2016 ASA Physical Status: ASA3 Severe Disease Anesthetic Plan: MAC Bene/Risks/Altern/Consents: Yes HP Complete Prior to Induction: Yes Sergio Montalvo MD Aug 14, 2016 16:43
--- NOTE | 2016-08-14 16:44 | PCM.ANEP1 ---
Post Anesthesia Phase 1 PACU Phase 1 Assessment Date of Service: Aug 13, 2016 Vital Signs Vital Signs Date Time Temp Pulse Resp B/P Pulse Ox O2 Delivery O2 Flow Rate FiO2 08/14/16 16:35 73 18 106/72 Nasal Cannula 4 08/14/16 16:23 75 14 103/65 90 Nasal Cannula 4 08/14/16 16:14 65 18 98/63 94 Nasal Cannula 4 08/14/16 13:04 73 16 97 Nasal Cannula 3.00 08/14/16 08:52 79 16 91 Nasal Cannula 3.00 Anesthetic Administered: MAC Level of Alertness: Awake, talking AUGUST's with Equal Strength: Yes Pain: No Pain Scale Score: 0 Oxygen Delivery: Nasal Cannula Lungs: Clear to Auscultation, Normal Air Movement Sergio Montalvo MD Aug 14, 2016 16:44
[2016-08-14] MEDS ORDERED: MetoCLOpramide 5 mg/mL 2 mL Inj IVPUSH PRN (16:45)
[2016-08-14] MEDS ORDERED: Ondansetron 2 mg/mL 2 mL Inj IVPUSH PRN (16:45)
--- NOTE | 2016-08-14 16:45 | PCM.ANEP2 ---
Post Anesthesia Evaluation ASA/CMS Post Anesthesia VS in Patient's Normal Range?: Yes Resp Stable; Airway Patent?: Yes CV Function & Hydration Stable: Yes Mental Status Recovered?: Yes Pain control Satisfactory?: Yes N/V Control Satisfactory?: Yes Additional Comments difficult to get sat readings on cold extremities. pt cooperative maintaining at 93 Sergio Montalvo MD Aug 14, 2016 16:44
--- NOTE | 2016-08-14 19:17 | PCM.PNMED ---
Subjective Date of Service Aug 14, 2016 Subjective Patient is a 71-year-old female with past medical history of CHF, COPD, mitral regurgitation, GERD, heavy alcohol abuse (last drink one week prior to admission ),admitted for treatment of ongoing diarrhea blood diarrhea, melena, nausea, vomiting, new onset hypokalemia and new onset hepatitis. Overnight: nursing reported multiple episodes of diarrhea. Today: Patient is laying supine in bed stating that she is uncomfortable and would like to sit up. Patient stated that she has been having lost of diarrhea, with blood and dark stools. She said that her stomach is painful, with left side greater than right side. Patient denies tremors, anxiety, fever, chills. ROS negative except as mentioned above. Exam Vital Signs Vital Sign - Last Date Time Temp Pulse Resp B/P Pulse Ox O2 Delivery O2 Flow Rate FiO2 08/13/16 23:35 71 14 93 Nasal Cannula 3.00 08/13/16 23:17 36.5 115/57 Intake and Output 08/13/16 08/13/16 08/14/16 Cumulative From/Thru 14:59 22:59 06:59 08/13/16 11:25 - 08/14/16 06:03 Intake Total 781 ml 120 ml 901 ml Output Total 375 ml 375 ml Balance 781 ml -255 ml 526 ml Intake Oral 120 ml 120 ml IV Total 781 ml 781 ml Output Urine Total 350 ml 350 ml Stool Total 25 ml 25 ml # Voids 1 1 # Bowel Movements 2 2 Exam General: Alert, Disoriented, Poorly verbal, Cooperative, Appears severely fatigued and chronically ill. Poorly verbal. Head: Normocephalic, atraumatic. External ears normal. Eyes: PERRLA, EOMI. Anicteric sclerae. Mouth: Mouth Normal, Mucous Membranes Dry Chest & Lungs: Clear to auscultation bilaterally with no crackles, wheezes, or rhonchi. Cardiovascular: Regular Rate/Rhythm, Normal S1, Normal S2, No Murmurs/Rubs/ Gallops Abdomen: LUQ/LLQ tenderness, Non-distended, No masses, Normoactive bowel tones , Soft Musculoskeletal: Normal Range of Motion Extremities: No cyanosis/clubbing/edema bilaterally Neurological: Grossly Neurologically Intact, Poorly Verbal IVs and Medications Medications Reviewed: Medications were reviewed in detail Lab and Diagnostics Result Diagram: 08/14/16 0000 08/14/16 0307 X-Rays, CTs and MRIs CXR IMPRESSION: No acute cardiopulmonary disease process. Dictated by: April Serrano MD, PhD on 08/13/2016 at 13:18 Approved by: April Serrano MD, PhD on 08/13/2016 at 13:18 CT ABD IMPRESSION: 1. Circumferential wall thickening involving the colon compatible with nonspecific colitis which has progressed in interval since prior examination obtained 06/17/2016. Differential diagnosis includes infectious/inflammatory, ischemic and neoplastic etiologies. 2. Circumferential wall thickening involving the terminal ileum has developed interval since the prior examination. Finding compatible with nonspecific terminal ileitis but may be related to "some backwash ileitis" secondary to colitis. 3. Enlarged appendix measuring 1.3 cm in diameter which could be related to appendicitis or a reactive change associated with colitis. Please correlate with clinical data. 4. Small amount of scattered ascites. 5. Colonic diverticulosis no evidence of diverticulitis. 6. Panniculitis. 7. Hepatic steatosis. 8. Moderate-sized hiatal hernia. 9. Trace bilateral pleural effusions. 10. Urinary bladder wall thickening which could be due to nondistention versus inflammation/infection. Please correlate with clinical and urinalysis data. 11. Stable left adrenal nodule. 12. Findings telephoned to Dr. Sudheer Alva on 08/13/2016 at 1337 hrs. Dictated by: April Serrano MD, PhD on 08/13/2016 at 13:43 Approved by: April Serrano MD, PhD on 08/13/2016 at 13:43 CT BRAIN IMPRESSION: No definite, acute intracranial abnormality is seen. If there is strong clinical suspicion for an acute stroke, please consider an MRI for further evaluation, as it is more sensitive (assuming that there is no contraindication to MRI). Note is made of age-appropriate brain parenchymal volume loss and chronic small vessel ischemic changes. Dictated by: Olayinka Thurman M.D. on 08/13/2016 at 12:14 Approved by: Olayinka Thurman M.D. on 08/13/2016 at 12:14 Additional Diagnostics ABG DateTimeAnalyzed 09:21:00 -_ pH ____7.520 - 7.350 7.450 pCO2 ___55.4__ -mmHg 35.0 45.0 pO2 ___65.1__ -mmHg 69.0 116 HCO3- ___45.0__ -mmol/L 22.0 26.0 ABE ___18.9__ -mmol/L -2.0 2.0 Assessment & Plan Patient is a 71-year-old female with past medical history of CHF, COPD, mitral regurgitation, GERD, heavy alcohol abuse (last drink one week prior to admission ),admitted for treatment of ongoing diarrhea blood diarrhea, melena, nausea, vomiting, new onset hypokalemia and new onset hepatitis. Hospital Day 2 1. Acute upper GI bleed, present on admission, ongoing. - Pt presents with "pitch black stools" after a brief episode of red stool. Given her history of GERD, peptic ulcer disease is possible. CT abdomen and pelvis with contrast on 06/25/16 which showed diffuse thickening throughout the ileum and entire colon along with a possible colonic vesicular fistula. Given the presence of possible fistula, consider Crohn's. Hb is normal at this time. Celiac panel was negative. - GI will proceed with upper and lower endoscopy. - Stool PCR, Pending - Continue oral Vancomycin - Continue to monitor H&H, transfuse if necessary - Continue IV Protonix - GI following, we appreciate their time and expertise in this case. 2. Colitis, acute, present on admission, ongoing - Pt presents with diffuse ileal and colonic thickening on CT scan and upper GI bleed. Appendix appeared to be involved but likely secondary to colitis rather than isolated appendicitis. DDx includes IBS, infectious colitis, - GI will proceed with upper and lower endoscopy - Stool PCR pending 3. Possible colovesicular fistula, present on admission, ongoing - CT abd/pelvis shows possible colovesicular fistula, with thickened bladder wall. Suspicious for Crohn's disease vs chronic colonic inflammation. - Recommend UA given possible colovesicular fistula 4. Elevated LFTs, acute - T bili, AST, ALT, alk phos all elevated, likely secondary to alcohol. Bilirubin elevated but pt is s/p cholecystectomy, so likely due to hepatic insult. Discriminant function score 0.6, which indicates good prognosis and low benefit from steroid treatment. Salicylates, EtOH, and APAP all negative on admission. - Avoid hepatotoxic medications - hepatitis panel, pending - Continue to monitor CMP 5. History of alcohol abuse, present on admission. - Pt has history of substantial alcohol abuse, reportedly drinking 1/2 gallon of vodka every 1-2 days for several years. Last drink was last Saturday due to poor oral intake and severe weakness. EtOH negative on admission. - Monitor for signs of withdrawal. - Start IV thiamine - PRN Ativan 1 mg IV for tremors/agitation 6. Hypokalemia, present on admission, active - Likely etiology due to diarrhea causing metabolic alkalosis. - Serum K 2.2- 2.4 08/14/16 - Patient given 40 meq x 3, continue to replete as necessary with goal of >4 - Continue IV fluid hydration 7.Elevated TSH, history of hypothyroidism - Free T4 low - TSH high - Repeat free T4, - Check free T3, total T4, SHANTAL, T3 RU, pending - Check random cortisol in AM, pending - consider IV repletion 8. History of UTI, present on admission - Thickened bladder wall on CT - UA, 6-10 WBC, few bacteria - Chronic issues known prior to admission, present on admission 9.CHF, - hold home lasix, lisinopril, mag, metoprolol 10. Moderate-severe mitral regurg, 11. diastolic chf ( echo 2015 EF 60-65%), 12. HTN 13. hyperlipidemia, 14. CAD (cardiac cath 2013) 15. atrial fibrillation 16. asthma, 17. copd, 18 Depression and anxiety 19. smoker - Nicotine patch ordered 20. hiatal hernia, gerd, colon polyps 21. dysphagia - needs smaller pills on discharge 22. nocturnal hypoxia s/p home O2 script by PCP 06/2016 Diet npo at midnight, clear for now DVT prophylaxis: Hold Heparin, SCDs in place CODE STATUS:FULL CODE Disposition: Patient is admitted under inpatient status with expected length of stay greater than 2 midnights due to severity of presenting symptoms, risk of adverse event, and complexity of treatment plan. VTE Mechanical Devices: Intermittant Pneumatic CD Attending Statement The patient was seen and examined together with Dr. Marino on 08-14-16 and I agree with the history, exam and plan as outlined in the note above. RAGINI MARINO DO Aug 14, 2016 07:35 Emily Bush MD Aug 15, 2016 12:54
--- NOTE | 2016-08-14 19:27 | NUR ---
Shift Notation Pt denies chest pain. Pt states that edema is usually much worse than at present. Family states that pt usually suffers from significant edema in her legs. Non-pitting edema present in Lower legs, trace in feet. Tele SR 70-80s with murmur, heart sounds distant. Lungs are clear and diminished in bases, expiratory wheezing heard on auscultation. MD concerned about fluid overload given pt's history of CHF. Pt A&O x3. AUGUST, somnolent but arouses to voice. She has been pleasant and cooperative with cares. No signs or symptoms of CIWA.
[2016-08-15] VITALS (10 sets, daily range): BP systolic 103–122; BP diastolic 55–70; PULSE 65–97; RESP 16–20; O2SAT 88–97
[2016-08-15] MEDS: metroNIDAZOLE Inj 500 MG in IV Premix 1 EACH IV SCH ×2 (00:47→08:28)
[2016-08-15 02:07] LABS: T3 Uptake 24 % (24-39)
[2016-08-15] MEDS ORDERED: Potassium Chloride 20 mEq/15 mL 15mL Oral Soln TUBE SCH (02:25)
[2016-08-15] MEDS: Vancomycin 250 mg Oral Capsule PO SCH ×4 (02:38→20:56)
[2016-08-15] MEDS: Potassium Chloride 20 mEq/15 mL 15mL Oral Soln PO SCH ×2 (02:39→04:49)
--- NOTE | 2016-08-15 05:39 | NUR ---
Mentation Pt A&Ox3 but confused at times during the night. Pt would talk about "my IV only hurts if there are cat's playing with the tubes" and "I have been watching TV and really would like to help some of these people, how can I do that?" Able to reorient Pt but she states that she is still confused about time. PRN 1 mg Ativan administered x2 as pt wanted "something to calm down" Pt appearing anxious at times and very sad and confused. Pt unable to sleep for most of the shift. VSS and Tele SR70's
--- NOTE | 2016-08-15 05:48 | NUR ---
Potassium Pt potassium continues to be at critical levels. Pt is on K+ Mag Protocol. Last dose of K+ was 80mEq PO liquid @ 0430. Redraw of K+ will be at 0830. aware.
--- NOTE | 2016-08-15 05:49 | ABG ---
DateTimeAnalyzed 05:44:00 -_ pH ____7.477 - 7.350 7.450 pCO2 ___54.5__ -mmHg 35.0 45.0 pO2 ___64.1__ -mmHg 69.0 116 HCO3- ___39.9__ -mmol/L 22.0 26.0 ABE ___14.3__ -mmol/L -2.0 2.0 tHb ___10.5__ -g/dL O2Hb ___90.2__ -% COHb ____1.2__ -% MetHb ____1.0__ -% sO2 ___92.2__ -% FIO2 ___32.0__ -% Drawn By MM - Date/Time Notified____ 05:48:00 -_ Liter_Flow ____3.0__ -L/min Oxygen Device 1 SIMP MASK - Notified By MM - Notified Whom RN - B 741 -mmHg tO2 ___13.3__ -Vol% Jassi test _Positive -
[2016-08-15] MEDS ORDERED: 0.9% Sodium Chloride 1,000 ML IV ONE (06:25)
[2016-08-15 07:41] LABS: BASOPHILS % (AUTO) 0.9 % (0-3); EOSINOPHILS % (AUTO) 2.4 % (0-5); MONOCYTES % (AUTO) 14.8 % (4-12); Mean Corpuscular Hemoglobin 32.2 pg (27.0-35.0); NEUTROPHILS % (AUTO) 59.8 % (40-74); Platelet Count 131 bil/L (150-400)
[2016-08-15] MEDS: Albuterol-Ipratropium 3 mL Inhalation Solution NEB SCH ×4 (07:42→20:53)
[2016-08-15] MEDS: Pantoprazole 4 mg/mL 10 mL Inj IVPUSH SCH ×2 (08:24→20:56)
[2016-08-15] MEDS: Ciprofloxacin Inj 400 MG in IV Premix 1 EACH IV SCH ×2 (08:25→20:58)
[2016-08-15] MEDS ORDERED: Pantoprazole 40 mg ER24 Tablet PO SCH (08:30)
[2016-08-15] MEDS ORDERED: Potassium Chloride 20 mEq/15 mL 15mL Oral Soln PO ONE (12:55)
[2016-08-15] MEDS: Thiamine Inj 100 MG in 0.9% Sodium Chloride 100 ML IV SCH (12:56)
--- NOTE | 2016-08-15 13:32 | NUR ---
Social Work Note: Initial Assessment Data& Assessment:EMR reviewed. SW met with pt at bedside to discuss discharge planning, SW role explained. Kayy No is a 71 year old female admitted on 08/13/2016 for colitis and severe hyokalemia. Pt has Medicare and [employer] supplemental insurance coverage. Pt sees Davin Galan MD for primary care. Pt lives in [place] with her Kevin and is independent at baseline. Pt lives in a tri-level home but remains on the main floor. Pt does not use any DME at baseline. Pt does not wear oxygen at baseline. Pt does not have HH or SNF hx. Pt does not have LTC insurance or VA benefits. Pt provided with DPOA paperwork to review and complete when possible. Per MD pt drinks a half gallon of alcohol every two days. Pt is not on CIWA protocol at this time. Pt denies experiencing any withdrawal symptoms. SW to follow up with CD assessment if pt is placed on CIWA protocol. Pt denies any needs or resources at this time. Pt confirmed he is able to transport pt home when medically ready. No other discharge needs identified at this time. SW to continue to follow if any needs arise. Plan: Anticipated discharge home via POV when medically ready. Pt denies any needs or resources at this time. Pt confirmed he is able to transport pt home when medically ready. No other discharge needs identified at this time. SW to continue to follow if any needs arise. [facility] Addendum: 08/15/16 at 1349 by OSIRIS KENNEDY Amended: Links added.
--- NOTE | 2016-08-15 13:52 | PCM.PNMED ---
Subjective Date of Service Aug 15, 2016 Subjective Patient is confused, oriented to name and place but thinks it is 2004. She remains poorly verbal and answers sluggishly. She reports diarrhea, but denies abdominal pain, nausea, vomiting, fevers, or chills. Exam Vital Signs Vital Sign - Last Date Time Temp Pulse Resp B/P Pulse Ox O2 Delivery O2 Flow Rate FiO2 08/15/16 12:53 36.4 83 20 103/69 95 Nasal Cannula 2.00 Intake and Output 08/14/16 08/14/16 08/15/16 Cumulative From/Thru 15:00 23:00 07:00 08/13/16 11:25 - 08/15/16 05:32 Intake Total 3807 ml 4708 ml Output Total 1250 ml 1625 ml Balance 2557 ml 3083 ml Intake Oral 0 ml 120 ml IV Total 3807 ml 4588 ml Output Urine Total 1250 ml 1600 ml Stool Total 25 ml # Voids 1 # Bowel Movements 2 4 Exam General: Alert, Oriented x2, Cooperative, Appears severely fatigued and chronically ill. Poorly verbal. Head: Normocephalic, atraumatic. External ears normal. Eyes: PERRLA, EOMI. Anicteric sclerae. Mouth: Mouth Normal, Mucous Membranes Dry Chest & Lungs: Clear to auscultation bilaterally with no crackles, wheezes, or rhonchi. Cardiovascular: Regular Rate/Rhythm, Normal S1, Normal S2, No Murmurs/Rubs/ Gallops Abdomen: No tenderness, Non-distended, No masses, Normoactive bowel tones, Soft Musculoskeletal: Normal Range of Motion Extremities: No cyanosis/clubbing/edema bilaterally Neurological: Grossly Neurologically Intact, Poorly Verbal Lab and Diagnostics Result Diagram: 08/15/16 0716 08/15/16 0716 X-Rays, CTs and MRIs CXR IMPRESSION: No acute cardiopulmonary disease process. Dictated by: April Serrano MD, PhD on 08/13/2016 at 13:18 Approved by: April Serrano MD, PhD on 08/13/2016 at 13:18 CT ABD IMPRESSION: 1. Circumferential wall thickening involving the colon compatible with nonspecific colitis which has progressed in interval since prior examination obtained 06/17/2016. Differential diagnosis includes infectious/inflammatory, ischemic and neoplastic etiologies. 2. Circumferential wall thickening involving the terminal ileum has developed interval since the prior examination. Finding compatible with nonspecific terminal ileitis but may be related to "some backwash ileitis" secondary to colitis. 3. Enlarged appendix measuring 1.3 cm in diameter which could be related to appendicitis or a reactive change associated with colitis. Please correlate with clinical data. 4. Small amount of scattered ascites. 5. Colonic diverticulosis no evidence of diverticulitis. 6. Panniculitis. 7. Hepatic steatosis. 8. Moderate-sized hiatal hernia. 9. Trace bilateral pleural effusions. 10. Urinary bladder wall thickening which could be due to nondistention versus inflammation/infection. Please correlate with clinical and urinalysis data. 11. Stable left adrenal nodule. 12. Findings telephoned to Dr. Sudheer Alva on 08/13/2016 at 1337 hrs. Dictated by: April Serrano MD, PhD on 08/13/2016 at 13:43 Approved by: April Serrano MD, PhD on 08/13/2016 at 13:43 CT BRAIN IMPRESSION: No definite, acute intracranial abnormality is seen. If there is strong clinical suspicion for an acute stroke, please consider an MRI for further evaluation, as it is more sensitive (assuming that there is no contraindication to MRI). Note is made of age-appropriate brain parenchymal volume loss and chronic small vessel ischemic changes. Dictated by: Olayinka Thurman M.D. on 08/13/2016 at 12:14 Approved by: Olayinka Thurman M.D. on 08/13/2016 at 12:14 Additional Diagnostics ABG DateTimeAnalyzed 09:21:00 -_ pH ____7.520 - 7.350 7.450 pCO2 ___55.4__ -mmHg 35.0 45.0 pO2 ___65.1__ -mmHg 69.0 116 HCO3- ___45.0__ -mmol/L 22.0 26.0 ABE ___18.9__ -mmol/L -2.0 2.0 Assessment & Plan Patient is a 71 year old female with a history of hypertension, CHF, COPD, mitral valve regurgitation, GERD for 20 years, and heavy alcohol abuse since age of 22 who presents with abdominal pain, bloody diarrhea and melena, nausea, and vomiting. PCR positive for C. diff Possible GI bleed, acute. - Pt presents with "pitch black stools" after a brief episode of red stool. Given her history of GERD, peptic ulcer disease is possible. CT abdomen and pelvis with contrast on 06/25/16 which showed diffuse thickening throughout the ileum and entire colon along with a possible colonic vesicular fistula. Given the presence of possible fistula, consider Crohn's. Hb is normal at this time. Celiac panel was negative. EGD showed a patent Schatzki ring, large hiatal hernia, and mild nonerosive gastritis. Likely cause of bleed is C diff colitis. - Continue to monitor H&H, transfuse if necessary - Continue to treat C diff C. diff Colitis, acute. - Pt presents with diffuse ileal and colonic thickening on CT scan and upper GI bleed. Appendix appeared to be involved but likely secondary to colitis rather than isolated appendicitis. Stool PCR positive for C diff. - PO Flagyl and PO Vancomycin Acute encephalopathy - Pt presents with altered mental status on admission, poor mentation, disoriented. She presents with a tremor; there was suspicion for asterixis but she appears to have a tremor with other movements and positions. CT abd/pelvis showed normal size liver and spleen. INR 1.01. Albumin 2.3. TSH was 65 with free T3/T4 very low. Pt presents with mild pancytopenia with WBC 3.3, plt 131. CT head was negative for acute intracranial abnormalities. This is less likely to be related to hepatic encephalopathy as she does not likely have significant cirrhosis at this time. Her hypoalbuminemia could be explained by malnutrition. Her encephalopathy is better explained by other concomitant conditions such as her alcohol withdrawal and severe hypothyroidism. Furthermore, it would be treated presently with her Flagyl. There are some signs of cirrhosis, however, including her low albumin and pancytopenia, so will evaluate with hepatic US. - Consider MRI brain to evaluate further for Wernicke encephalopathy - Treat hypothyroidism - Continue Flagyl - Hepatic ultrasound ordered to rule out cirrhosis. Possible colovesicular fistula - CT abd/pelvis shows possible colovesicular fistula, with thickened bladder wall. Suspicious for Crohn's disease vs chronic colonic inflammation secondary to likely longstanding C diff infection. UA and urine cultures were negative. - Continue to monitor Elevated LFTs, acute - T bili, AST, ALT, alk phos all elevated, likely secondary to alcoholic hepatitis. Bilirubin elevated but pt is s/p cholecystectomy, so likely due to hepatic insult. Discriminant function score 0.6, which indicates good prognosis and low benefit from steroid treatment. Salicylates, EtOH, and APAP all negative on admission. - Avoid hepatotoxic medications - Continue to monitor CMP VTE Mechanical Devices: Intermittant Pneumatic CD Neri Pittman Aug 15, 2016 13:52
[2016-08-15] MEDS ORDERED: Thiamine Inj 500 MG in Dextrose 5% 50 ML IV SCH (14:30)
--- NOTE | 2016-08-15 15:23 | NUR ---
NUTRITION ASSESSMENT Assess: 71 yo F w/ acute upper GI bleed. Endoscopy showed mild gastritis and a large hiatal hernia. Pt started on a clear liquid diet. Per nursing, pt w/ episodes of confusion overnight. Pt also w/ history of EtOH abuse. Per nursing, pt is eating really well. PMHx: Mitral valve regurgitation, Diastolic CHF, HTN, HLD, CAD, Afib, Hypothryroid, Diverticulitis, Hiatal hernia, GERD, Colon polyps, UTI LABS: Reviewed. K 3.0, Cl 94, CO2 41, BUN 6, Ca 7.1, AST 124, ALT 65, Alk phos 210, Albumin 2.3 MEDICATIONS: Reviewed. 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 INTERVENTION: 1) Will add Gelatein and Ensure Clear TID while on clear liquid diet. 2) If unable to advance diet in 1-2 days, consider nutrition support MONITOR/EVALUATE: Diet adv/magda, PO intake, Labs, Wt, Nutrition status, POC. Will follow per moderate nutrition risk guidelines.
--- NOTE | 2016-08-15 15:35 | PCM.PNMED ---
Subjective Date of Service Aug 15, 2016 Subjective Patient is a 71-year-old female with past medical history of CHF, COPD, mitral regurgitation, GERD, heavy alcohol abuse (last drink one week prior to admission ),admitted for treatment of ongoing diarrhea blood diarrhea, melena, nausea, vomiting, new onset hypokalemia and new onset hepatitis. Hospital Day 3. Overnight: Per nursing note "Pt A&Ox3 but confused at times during the night. Pt would talk about "my IV only hurts if there are cat's playing with the tubes " and "I have been watching TV and really would like to help some of these people, how can I do that?" Able to reorient Pt but she states that she is still confused about time. PRN 1 mg Ativan administered x2 as pt wanted "something to calm down" Pt appearing anxious at times and very sad and confused. Pt unable to sleep for most of the shift. VSS and Tele SR70's" Nursing reported that patient's mentation improved this AM. Today: Patient stated that she knows she has been confused, but she feels better now. Patient stated that she continues to have diarrhea. Patient denies seeing things, tremors, itching, fever, chills, nausea, vomiting. ROS negative except as mentioned above. Exam Vital Signs Vital Sign - Last Date Time Temp Pulse Resp B/P Pulse Ox O2 Delivery O2 Flow Rate FiO2 08/15/16 04:46 36.9 83 20 105/69 95 OxyMask 2.00 Intake and Output 08/14/16 08/14/16 08/15/16 Cumulative From/Thru 15:00 23:00 07:00 08/13/16 11:25 - 08/15/16 05:32 Intake Total 3807 ml 4708 ml Output Total 1250 ml 1625 ml Balance 2557 ml 3083 ml Intake Oral 0 ml 120 ml IV Total 3807 ml 4588 ml Output Urine Total 1250 ml 1600 ml Stool Total 25 ml # Voids 1 # Bowel Movements 2 4 Exam General: Alert to person and place, Disoriented, Poorly verbal, Cooperative, Appears severely fatigued and chronically ill. Poorly verbal. Head: Normocephalic, atraumatic. External ears normal. Eyes: PERRLA, EOMI. Anicteric sclerae. Negative for Nystagmus. Mouth: Mouth Normal, Mucous Membranes Dry Chest & Lungs: Clear to auscultation bilaterally with no crackles, wheezes, or rhonchi. Cardiovascular: Regular Rate/Rhythm, Normal S1, Normal S2, No Murmurs/Rubs/ Gallops Abdomen: LUQ/LLQ tenderness, Non-distended, No masses, Normoactive bowel tones , Soft Musculoskeletal: Normal Range of Motion Extremities: No cyanosis/clubbing/edema bilaterally. Asterixis noted on exam bilaterally. Neurological: Grossly Neurologically Intact, Poorly Verbal IVs and Medications Medications Reviewed: Medications were reviewed in detail Lab and Diagnostics Result Diagram: 08/14/16 0910 08/15/16 0247 Microbiology C DIFF TOXIN A AND B BY PCR Final 08/13/16-1837 Organism 1 POS FOR CDIF TOXIN C DIF TOXIN A&B PCR DETECTED TIME CALLED: 1835 DATE CALLED: 08/13/16 FLOOR/DOCTOR: CECILE/MIGUEL ÁNGEL [place] CALLED BY: CARMELO PCR testing alone cannot distinquish C. difficile disease from a carrier state, and therefore correlation with clinical findings is required. X-Rays, CTs and MRIs CXR IMPRESSION: No acute cardiopulmonary disease process. Dictated by: April Serrano MD, PhD on 08/13/2016 at 13:18 Approved by: April Serrano MD, PhD on 08/13/2016 at 13:18 CT ABD IMPRESSION: 1. Circumferential wall thickening involving the colon compatible with nonspecific colitis which has progressed in interval since prior examination obtained 06/17/2016. Differential diagnosis includes infectious/inflammatory, ischemic and neoplastic etiologies. 2. Circumferential wall thickening involving the terminal ileum has developed interval since the prior examination. Finding compatible with nonspecific terminal ileitis but may be related to "some backwash ileitis" secondary to colitis. 3. Enlarged appendix measuring 1.3 cm in diameter which could be related to appendicitis or a reactive change associated with colitis. Please correlate with clinical data. 4. Small amount of scattered ascites. 5. Colonic diverticulosis no evidence of diverticulitis. 6. Panniculitis. 7. Hepatic steatosis. 8. Moderate-sized hiatal hernia. 9. Trace bilateral pleural effusions. 10. Urinary bladder wall thickening which could be due to nondistention versus inflammation/infection. Please correlate with clinical and urinalysis data. 11. Stable left adrenal nodule. 12. Findings telephoned to Dr. Sudheer Alva on 08/13/2016 at 1337 hrs. Dictated by: April Serrano MD, PhD on 08/13/2016 at 13:43 Approved by: April Serrano MD, PhD on 08/13/2016 at 13:43 CT BRAIN IMPRESSION: No definite, acute intracranial abnormality is seen. If there is strong clinical suspicion for an acute stroke, please consider an MRI for further evaluation, as it is more sensitive (assuming that there is no contraindication to MRI). Note is made of age-appropriate brain parenchymal volume loss and chronic small vessel ischemic changes. Dictated by: Olayinka Thurman M.D. on 08/13/2016 at 12:14 Approved by: Olayinka Thurman M.D. on 08/13/2016 at 12:14 Additional Diagnostics ABG DateTimeAnalyzed 09:21:00 -_ pH ____7.520 - 7.350 7.450 pCO2 ___55.4__ -mmHg 35.0 45.0 pO2 ___65.1__ -mmHg 69.0 116 HCO3- ___45.0__ -mmol/L 22.0 26.0 ABE ___18.9__ -mmol/L -2.0 2.0 ENDOSCOPY IMPRESSIONS: 1. Schatzki ring. 2. Large hiatal hernia from 32-40 cm from the incisors. 3. Mild nonerosive gastritis. Mj Taveras MD 08/14/16 6990 Assessment & Plan Patient is a 71-year-old female with past medical history of CHF, COPD, mitral regurgitation, GERD, heavy alcohol abuse (last drink one week prior to admission ),admitted for treatment of ongoing diarrhea blood diarrhea, melena, nausea, vomiting, new onset hypokalemia and new onset hepatitis. Hospital Day 3 1. Colitis, acute, present on admission, ongoing Pt presents with "pitch black stools" after a brief episode of red stool. Given the presence of possible fistula, consider Crohn's. Hb is normal at this time. Celiac panel was negative. - Pt presents with diffuse ileal and colonic thickening on CT scan and upper GI bleed. Appendix appeared to be involved but likely secondary to colitis rather than isolated appendicitis. Stool PCR postive for C.Diff colitis. - GI will proceed lower endoscopy once colitis resolved - Continue oral Vancomycin - GI will proceed with lower endoscopy once infection is resolved to r/o lower GI bleed. 2. Altered mentation, acute, present on admission, ongoing - Patient elevated LFT at admission, continue to be elevated, low platelets 131 , low albumin 2.1. Patient has long history of drinking alcohol, differential includes Werneckii's encephalopathy, Hepatic encephalopathy, Myxedema Coma, - Ammonia at admission 45 - Repeat ammonia today, 46 - MRI brain ordered r/o Werneckii's encephalopathy - Discussed with GI, we appreciate their recommendations and expertise on this case 3. Alcoholic hepatitis, acute on chronic, present on admission - T bili, AST, ALT, alk phos all elevated, likely secondary to alcohol. Bilirubin elevated but pt is s/p cholecystectomy, so likely due to hepatic insult. Discriminant function score 0.6, which indicates good prognosis and low benefit from steroid treatment. Salicylates, EtOH, and APAP all negative on admission. - Abdominal US ordered r/o cirrhosis - Avoid hepatotoxic medications - Ammonia on presentation 45 08/13/16, repeat ammonia today, discussed with GI awaiting recommendations on treatment options if ammonia is elevated - hepatitis panel, negative - Continue to monitor daily CMP 4. History of alcohol abuse, present on admission. - Pt has history of substantial alcohol abuse, reportedly drinking 1/2 gallon of vodka every 1-2 days for several years. Last drink was last Saturday due to poor oral intake and severe weakness. EtOH negative on admission. - Likely presenting with symptoms of Wernekinck encephalitis vs Hepatic encephalopathy - Monitor for signs of withdrawal. - Continue IV thiamine 500 mg TID for two days then 250 mg once daily for additional 5 days - PRN Ativan 1 mg IV for tremors/agitation 5. Hypokalemia, present on admission, active - Likely etiology due to diarrhea causing metabolic alkalosis. - Serum K 2.2- 2.4 08/14/1608/15 - Patient given 40 meq x 3, continue to replete as necessary with goal of >4 - Continue IV fluid hydration - Repeat ABG in AM 6.Elevated TSH, history of hypothyroidism, chronic, present on admission - Free T4 low - TSH high - Repeat free T4, low - Check random cortisol in AM, pending - Start 50 mcg Levothyroxine PO 7. Possible colovesicular fistula, present on admission, ongoing - CT abd/pelvis shows possible colovesicular fistula, with thickened bladder wall. Suspicious for Crohn's disease vs chronic colonic inflammation. 8. History of UTI, present on admission - Thickened bladder wall on CT - UA, 6-10 WBC, few bacteria 9. Acute upper GI bleed, present on admission, ruled out - Pt presents with "pitch black stools" after a brief episode of red stool. Given her history of GERD, peptic ulcer disease is possible. CT abdomen and pelvis with contrast on 06/25/16 which showed diffuse thickening throughout the ileum and entire colon along with a possible colonic vesicular fistula. Given the presence of possible fistula, consider Crohn's. Hb is normal at this time. Celiac panel was negative. - Upper endoscopy negative for acute bleed. - GI will proceed with lower endoscopy once colitis has resolved - Stool PCR, Positive for C.Diff - Continue oral Vancomycin - Continue to monitor H&H, transfuse if necessary - Continue IV Protonix - GI following, we appreciate their time and expertise in this case. Chronic issues known prior to admission, present on admission 9.CHF, - hold home lasix, lisinopril, mag, metoprolol 10. Moderate-severe mitral regurg, 11. diastolic chf ( echo 2015 EF 60-65%), 12. HTN 13. hyperlipidemia, 14. CAD (cardiac cath 2013) 15. atrial fibrillation 16. asthma, 17. copd, 18 Depression and anxiety 19. smoker - Nicotine patch ordered 20. hiatal hernia, gerd, colon polyps 21. dysphagia - needs smaller pills on discharge 22. nocturnal hypoxia s/p home O2 script by PCP 06/2016 Diet npo at midnight, clear for now DVT prophylaxis: Hold Heparin, SCDs in place CODE STATUS:FULL CODE Disposition: Patient is admitted under inpatient status with expected length of stay greater than 2 midnights due to severity of presenting symptoms, risk of adverse event, and complexity of treatment plan. VTE Mechanical Devices: Intermittant Pneumatic CD Attending Statement The patient was seen and examined together with Dr. Marino on 08-15-16 and I agree with the history, exam and plan as outlined in the note above. Patient is on IV prn diazepam. RAGINI MARNIO DO Aug 15, 2016 06:53 Emily Bush MD Aug 16, 2016 13:43
--- NOTE | 2016-08-15 17:52 | DRSVH ---
PROCEDURE: MRI BRAIN WITH AND WITHOUT CONTRAST ([id number]) INDICATIONS: Possible wernicke encephalopathy TECHNIQUE: Noncontrast axial T1 spin echo, axial T2 fast spin echo, sagittal and axial FLAIR, coronal T2 fast sp in echo, axial gradient echo, axial diffusion and ADC through the brain. After the administration of contrast, axial and coronal T1 spin echo with fat saturation through the brain. COMPARISON: [facility], CT, CT BRAIN WO CON, 08/13/2016, 13:00. FINDINGS: Image quality: Motion is present on multiple sequences, limiting areas of fine detail evaluation. CSF spaces: Basal cisterns are patent. No extra-axial fluid collections. Ventricles are normal in size and shape. Brain: No midline shift. No intracranial bleeds or masses. No abnormal intracranial enhancement. There is cerebral volume loss for age. There is periventricular white matter chronic small vessel is chemic change. The brainstem appears normal. Diffusion-weighted images demonstrate no acute ischemi c insults. No chronic ischemic insults. Normal intravascular flow voids are present. Skull and face: Calvarial marrow is normal in signal. Orbits appear normal. Sinuses: Trace fluid is present within the mastoid air cells bilaterally. Sinuses are clear. IMPRESSION: 1. No acute intracranial process. No visualized imaging findings suggesting Wernike's encephalopathy. 2. Moderate atrophy and chronic microvascular ischemic changes. Dictated by: Fannie Tabares M.D. on 08/15/2016 at 17:51 Approved by: Fannie Tabares M.D. on 08/15/2016 at 17:51
--- NOTE | 2016-08-15 18:07 | NUR ---
Shift Notation/Mentation Pt's mentation has shown times of lucidity where she is alert and oriented, followed by episodes of confusion. Pt states she has been seeing monsters in her room upon waking. She forgets where she is, and states that she is frightened and does not know what is wrong with her. Pt is reassured and reorients to place and time. Remains relatively somnolent today. MD aware, MRI of head ordered. Pt has been able to sit up in bed for meals today. Is tolerating full liquid diet with no signs or symptoms of nausea. Continues to have incontinent episodes of gelatinous loose stools. Oxygen continues to be at 2L NC with SaO2 in mid 90s.
[2016-08-15] MEDS ORDERED: Potassium Chloride 20 mEq/15 mL Oral Soln(K 3 - 3.7 & Creat < 2) TUBE ONE (18:15)
--- NOTE | 2016-08-15 18:42 | NUR ---
Medications Pt's IV became infiltrated. Unable to give pt afternoon Thiamine due to no IV access. PICC line placement had been ordered and was to be placed in the afternoon of 08/15.
[2016-08-15] MEDS: Thiamine Inj 500 MG in Dextrose 5% 50 ML IV SCH ×2 (20:30→20:56)
[2016-08-15] MEDS ORDERED: POTASSIUM CHLORIDE IV ONE (20:43)
[2016-08-15] MEDS ORDERED: DEXTROSE IV ONE (20:43)
[2016-08-15] MEDS ORDERED: 0.9% Sodium Chloride 50 ML ONE (20:44)
--- NOTE | 2016-08-15 20:50 | DRSVH ---
PROCEDURE: X-RAY PICC LINE PLACEMENT BY NURSE ([id number]) INDICATIONS: poor IV access, need multiple meds at same time COMPARISON: None. FINDINGS: PICC was placed by the intravenous therapy team from the left side. Fluoroscopic spot néstor m demonstrates tip of PICC overlies the mid SVC. IMPRESSION: Tip of PICC overlies the mid SVC. Dictated by: Fannie Tabares M.D. on 08/15/2016 at 20:49 Approved by: Fannie Tabares M.D. on 08/15/2016 at 20:49
[2016-08-15] MEDS ORDERED: KCl 40 mEq/100 mL Premix (K 3 - 3.7 & Creat < 2) IV ONE (21:25)
[2016-08-15] MEDS: Multivit-Miner-Folic Acid-Iron Tablet PO SCH (21:33)
--- NOTE | 2016-08-15 22:11 | DRSVH ---
PROCEDURE: US ABDOMEN, LIMITED ([id number]) INDICATIONS: Hepatic US - eval for cirrhosis TECHNIQUE: Real-time focused scanning was performed of the abdomen, with image documentation. COMPARISON: None. FINDINGS: The liver is enlarged. It is heterogeneous with increased echogenicity. Trace perihepatic f luid is present. Remaining structures are not well visualized. IMPRESSION: Hepatomegaly with steatosis. No definitive changes of cirrhosis. Dictated by: Fannie Tabares M.D. on 08/15/2016 at 22:09 Approved by: Fannie Tabares M.D. on 08/15/2016 at 22:09
[2016-08-16] VITALS (10 sets, daily range): BP systolic 103–134; BP diastolic 67–81; PULSE 76–101; RESP 18–20; O2SAT 91–97
[2016-08-16] MEDS: Alum-Mag Hydrox-Simeth 30 mL Suspension PO PRN ×3 (00:08→21:23)
[2016-08-16] MEDS: Vancomycin 250 mg Oral Capsule PO SCH ×4 (02:25→20:17)
[2016-08-16 02:46] LABS: BASOPHILS % (AUTO) 0.5 % (0-3); EOSINOPHILS % (AUTO) 1.5 % (0-5); MONOCYTES % (AUTO) 12.2 % (4-12); Mean Corpuscular Hemoglobin 32.1 pg (27.0-35.0); Mean Corpuscular Volume 92.1 fL (81-100); Platelet Count 132 bil/L (150-400)
--- NOTE | 2016-08-16 02:46 | NUR ---
Low K+ P: K+ 3.0 around 1800. I: given kcl 40 meq IV E; VSS, awaiting for repeat lab CIWA P: ciwa score 12 I: given vallium 10mg slow IV E: last ciwa 10 GI P: c/o heartburn I: given maalox prn E: relieved from heartburn, BM x 2 loose. Contact Enteric precautions observed Addendum: 08/16/16 at 0412 by STAR BURRELL RN Addendum: Repeat K+ 3.4, Hung kcl 40 meq IV over 4hrs.
[2016-08-16 02:56] LABS: INR 1.05 ratio
[2016-08-16] MEDS ORDERED: KCl 40 mEq/100 mL Premix (K 3 - 3.7 & Creat < 2) IV ONE (03:25)
--- NOTE | 2016-08-16 05:44 | ABG ---
DateTimeAnalyzed 05:40:00 -_ pH ____7.474 - 7.350 7.450 pCO2 ___49.6__ -mmHg 35.0 45.0 pO2 ___69.8__ -mmHg 69.0 116 HCO3- ___36.0__ -mmol/L 22.0 26.0 ABE ___11.1__ -mmol/L -2.0 2.0 tHb ___10.8__ -g/dL O2Hb ___92.2__ -% COHb ____1.0__ -% MetHb ____0.9__ -% sO2 ___94.0__ -% FIO2 ___32.0__ -% Drawn By MM - Date/Time Notified____ 05:44:00 -_ Liter_Flow ____3.0__ -L/min Oxygen Device 1 SIMP MASK - Notified By MM - Notified Whom RN - B 743 -mmHg tO2 ___14.0__ -Vol% Jassi test _Positive -
[2016-08-16] MEDS: Albuterol-Ipratropium 3 mL Inhalation Solution NEB SCH ×4 (08:18→21:00)
[2016-08-16] MEDS: Pantoprazole 4 mg/mL 10 mL Inj IVPUSH SCH ×2 (08:41→17:01)
[2016-08-16] MEDS: Ciprofloxacin Inj 400 MG in IV Premix 1 EACH IV SCH (08:42)
[2016-08-16] MEDS: Multivit-Miner-Folic Acid-Iron Tablet PO SCH (08:43)
[2016-08-16] MEDS: Thiamine Inj 500 MG in Dextrose 5% 50 ML IV SCH ×3 (10:02→20:17)
--- NOTE | 2016-08-16 12:20 | PCM.PNMED ---
Subjective Date of Service Aug 16, 2016 Subjective Patient was confused this morning but was oriented x2. She had hallucinations last night, stating she saw "monsters." She denies abdominal pain, N/V/D, fevers , or chills. Exam Vital Signs Vital Sign - Last Date Time Temp Pulse Resp B/P Pulse Ox O2 Delivery O2 Flow Rate FiO2 08/16/16 11:55 101 20 91 Room Air 08/16/16 08:20 3.50 08/16/16 07:56 36.6 134/81 Intake and Output 08/15/16 08/15/16 08/16/16 Cumulative From/Thru 15:00 23:00 07:00 08/13/16 11:25 - 08/16/16 06:29 Intake Total 944 ml 5652 ml Output Total 700 ml 2325 ml Balance 244 ml 3327 ml Intake Oral 524 ml 644 ml IV Total 420 ml 5008 ml Output Urine Total 700 ml 2300 ml Stool Total 25 ml # Voids 1 # Bowel Movements 3 7 Exam General: Alert, Oriented x2, Cooperative, Appears severely fatigued and chronically ill. Confused. Head: Normocephalic, atraumatic. External ears normal. Eyes: PERRLA, EOMI. Anicteric sclerae. Mouth: Mouth Normal, Mucous Membranes Dry Chest & Lungs: Clear to auscultation bilaterally with no crackles, wheezes, or rhonchi. Cardiovascular: Regular Rate/Rhythm, Normal S1, Normal S2, No Murmurs/Rubs/ Gallops Abdomen: No tenderness, Non-distended, No masses, Normoactive bowel tones, Soft Musculoskeletal: Normal Range of Motion Extremities: No cyanosis/clubbing/edema bilaterally Neurological: Grossly Neurologically Intact Lab and Diagnostics Result Diagram: 08/16/1622408/16/16 022 Microbiology C DIFF TOXIN A AND B BY PCR Final 08/13/16-1837 Organism 1 POS FOR CDIF TOXIN C DIF TOXIN A&B PCR DETECTED TIME CALLED: 1835 DATE CALLED: 08/13/16 X-Rays, CTs and MRIs CXR IMPRESSION: No acute cardiopulmonary disease process. CT ABD IMPRESSION: 1. Circumferential wall thickening involving the colon compatible with nonspecific colitis which has progressed in interval since prior examination obtained 06/17/2016. Differential diagnosis includes infectious/inflammatory, ischemic and neoplastic etiologies. 2. Circumferential wall thickening involving the terminal ileum has developed interval since the prior examination. Finding compatible with nonspecific terminal ileitis but may be related to "some backwash ileitis" secondary to colitis. 3. Enlarged appendix measuring 1.3 cm in diameter which could be related to appendicitis or a reactive change associated with colitis. Please correlate with clinical data. 4. Small amount of scattered ascites. 5. Colonic diverticulosis no evidence of diverticulitis. 6. Panniculitis. 7. Hepatic steatosis. 8. Moderate-sized hiatal hernia. 9. Trace bilateral pleural effusions. 10. Urinary bladder wall thickening which could be due to nondistention versus inflammation/infection. Please correlate with clinical and urinalysis data. 11. Stable left adrenal nodule. CT BRAIN IMPRESSION: No definite, acute intracranial abnormality is seen. If there is strong clinical suspicion for an acute stroke, please consider an MRI for further evaluation, as it is more sensitive (assuming that there is no contraindication to MRI). Note is made of age-appropriate brain parenchymal volume loss and chronic small vessel ischemic changes. Additional Diagnostics ABG DateTimeAnalyzed 09:21:00 -_ pH ____7.520 - 7.350 7.450 pCO2 ___55.4__ -mmHg 35.0 45.0 pO2 ___65.1__ -mmHg 69.0 116 HCO3- ___45.0__ -mmol/L 22.0 26.0 ABE ___18.9__ -mmol/L -2.0 2.0 ENDOSCOPY 1. Schatzki ring. 2. Large hiatal hernia from 32-40 cm from the incisors. 3. Mild nonerosive gastritis. Assessment & Plan Patient is a 71 year old female with a history of hypertension, CHF, COPD, mitral valve regurgitation, GERD for 20 years, and heavy alcohol abuse since age of 22 who presents with abdominal pain, bloody diarrhea and melena, nausea, and vomiting. PCR positive for C. diff C. diff Colitis, acute. - Pt presents with diffuse ileal and colonic thickening on CT scan and upper GI bleed. Appendix appeared to be involved but likely secondary to colitis rather than isolated appendicitis. Stool PCR positive for C diff. - PO Flagyl and PO Vancomycin Possible GI bleed, acute. - Pt presented with "pitch black stools" after a brief episode of red stool. Given her history of GERD, peptic ulcer disease is possible. CT abdomen and pelvis with contrast on 06/25/16 which showed diffuse thickening throughout the ileum and entire colon along with a possible colonic vesicular fistula. Given the presence of possible fistula, consider Crohn's. Celiac panel was negative. EGD showed a patent Schatzki ring, large hiatal hernia, and mild nonerosive gastritis. Likely cause of bleed is C diff colitis. Hb is stable at this time. - Continue to monitor H&H, transfuse if necessary - Continue to treat C diff Acute encephalopathy - Pt presents with altered mental status on admission, poor mentation, disoriented. She presents with a tremor; there was suspicion for asterixis but she appears to have a tremor with other movements and positions. CT abd/pelvis showed normal size liver and spleen. INR 1.01. Albumin 2.3. TSH was 65 with free T3/T4 very low. Pt presents with mild pancytopenia with WBC 3.3, plt 131. CT head was negative for acute intracranial abnormalities. This is less likely to be related to hepatic encephalopathy as she does not likely have significant cirrhosis at this time. Her hypoalbuminemia could be explained by malnutrition. Her encephalopathy is better explained by other concomitant conditions such as her alcohol withdrawal and severe hypothyroidism. Furthermore, it would be treated presently with her Flagyl. Head MRI was negative. Hepatic US showed hepatomegaly with steatosis. No definitive changes of cirrhosis. - Treat hypothyroidism - Continue Flagyl Possible colovesicular fistula - CT abd/pelvis shows possible colovesicular fistula, with thickened bladder wall. Suspicious for Crohn's disease vs chronic colonic inflammation secondary to likely longstanding C diff infection. UA and urine cultures were negative. - Continue to monitor Elevated LFTs, acute - T bili, AST, ALT, alk phos all elevated, likely secondary to alcoholic hepatitis. Bilirubin elevated but pt is s/p cholecystectomy, so likely due to hepatic insult. Discriminant function score 0.6, which indicates good prognosis and low benefit from steroid treatment. Salicylates, EtOH, and APAP all negative on admission. - Avoid hepatotoxic medications - Continue to monitor CMP VTE Mechanical Devices: Intermittant Pneumatic CD Neri Pittman Aug 16, 2016 12:20 bleed. Appendix appeared to be involved but likely secondary to colitis rather than isolated appendicitis. Stool PCR positive for C diff. - PO Flagyl and PO Vancomycin Possible GI bleed, acute. - Pt presented with "pitch black stools" after a brief episode of red stool. Given her history of GERD, peptic ulcer disease is possible. CT abdomen and pelvis with contrast on 06/25/16 which showed diffuse thickening throughout the ileum and entire colon along with a possible colonic vesicular fistula. Given the presence of possible fistula, consider Crohn's. Celiac panel was negative. EGD showed a patent Schatzki ring, large hiatal hernia, and mild nonerosive gastritis. Likely cause of bleed is C diff colitis. Hb is stable at this time. - Continue to monitor H&H, transfuse if necessary - Continue to treat C diff Acute encephalopathy - Pt presents with altered mental status on admission, poor mentation, disoriented. She presents with a tremor; there was suspicion for asterixis but she appears to have a tremor with other movements and positions. CT abd/pelvis showed normal size liver and spleen. INR 1.01. Albumin 2.3. TSH was 65 with free T3/T4 very low. Pt presents with mild pancytopenia with WBC 3.3, plt 131. CT head was negative for acute intracranial abnormalities. This is less likely to be related to hepatic encephalopathy as she does not likely have significant cirrhosis at this time. Her hypoalbuminemia could be explained by malnutrition. Her encephalopathy is better explained by other concomitant conditions such as her alcohol withdrawal and severe hypothyroidism. Furthermore, it would be treated presently with her Flagyl. Head MRI was negative. Hepatic US showed hepatomegaly with steatosis. No definitive changes of cirrhosis. - Treat hypothyroidism - Continue Flagyl Possible colovesicular fistula - CT abd/pelvis shows possible colovesicular fistula, with thickened bladder wall. Suspicious for Crohn's disease vs chronic colonic inflammation secondary to likely longstanding C diff infection. UA and urine cultures were negative. - Continue to monitor Elevated LFTs, acute - T bili, AST, ALT, alk phos all elevated, likely secondary to alcoholic hepatitis. Bilirubin elevated but pt is s/p cholecystectomy, so likely due to hepatic insult. Discriminant function score 0.6, which indicates good prognosis and low benefit from steroid treatment. Salicylates, EtOH, and APAP all negative on admission. - Avoid hepatotoxic medications - Continue to monitor CMP [employer] Mechanical Devices: Intermittant Pneumatic CD Neri Pittman Aug 16, 2016 12:20
--- NOTE | 2016-08-16 13:26 | PATH ---
SURGICAL PATHOLOGY Attending Physician:Mj Taveras MD CASE STATUS: Signed Out PATIENT NAME: VENANCIO GOMEZ PID: [id number] : 1945 DATE COLLECTED:08/14/2016 00:00 SPECIMEN: 1: Stomach, Antrum, Biopsy 2: Gastric, Biopsy CLINICAL HISTORY: A: ANTRUM BIOPSY B: GASTRIC BODY BIOPSY FINAL DIAGNOSIS: 1.STOMACH, ANTRUM, BIOPSY: ANTRAL MUCOSA WITH NO SIGNIFICANT DIAGNOSTIC ABNORMALITY. Negative for Helicobacter pylori organisms. Negative for intestinal metaplasia. Negative for dysplasia and malignancy. 2.STOMACH, BODY, BIOPSY: BODY-TYPE MUCOSA WITH NO DIAGNOSTIC ABNORMALITY. Negative for Helicobacter pylori organisms. Negative for intestinal metaplasia. Negative for dysplasia and malignancy. ICD10 code R10.9 GROSS DESCRIPTION: The specimen is received in two formalin filled containers labeled with the patient's name. 1). The specimen is sublabeled "antrum" and consists of 2 portions of tissue which aggregate to 0.4 x 0.3 x 0.2 CM. The specimen is entirely submitted in cassette 1A. 2). The specimen is sublabeled "gastric body" and consists of a 0.5 x 0.2 x 0.2 CM portion of tissue which is entirely submitted in cassette 2A. 08/15/2016 DAC MICRO DESCRIPTION: See diagnosis. ICD-9 CODES: CPT CODES: 1: 88317 2: 16642 Electronically Signed Out Meeta Nolen MD [facility] [place] [address] Technical component performed at [facility], [address] [place] [address] Ave[address], [address]
[2016-08-16] MEDS ORDERED: Potassium Chloride 20 mEq SR Tablet PO ONE (15:15)
--- NOTE | 2016-08-16 17:42 | PCM.PNMED ---
Subjective Date of Service Aug 16, 2016 Subjective Patient is a 71-year-old female with past medical history of CHF, COPD, mitral regurgitation, GERD, heavy alcohol abuse (last drink one week prior to admission ),admitted for treatment of ongoing diarrhea blood diarrhea, melena, nausea, vomiting, new onset hypokalemia and new onset hepatitis. Hospital Day 3. Overnight: Nursing reported low potassium, 3.3, patient given 40 KCl 40 meq IV per protocol, and agitation. Today: Patient stated she had two bowel movements last night that were without blood, reported that she had mild abdominal pain that improved with eating, and was anxious to see her . ROS negative except as mentioned above Exam Vital Signs Vital Sign - Last Date Time Temp Pulse Resp B/P Pulse Ox O2 Delivery O2 Flow Rate FiO2 08/16/16 05:37 76 08/16/16 03:28 36.8 18 124/69 93 Nasal Cannula 3.00 Intake and Output 08/15/16 08/15/16 08/16/16 Cumulative From/Thru 15:00 23:00 07:00 08/13/16 11:25 - 08/16/16 05:58 Intake Total 420 ml 5128 ml Output Total 1625 ml Balance 420 ml 3503 ml Intake Oral 120 ml IV Total 420 ml 5008 ml Output Urine Total 1600 ml Stool Total 25 ml # Voids 1 # Bowel Movements 4 Exam General: Alert to person and place, mentation significantly improved from yesterday, Cooperative, Appears severely fatigued and chronically ill. Head: Normocephalic, atraumatic. External ears normal. Eyes: PERRLA, EOMI. Anicteric sclerae. Negative for Nystagmus. Mouth: Mouth Normal, Mucous Membranes Dry Chest & Lungs: Clear to auscultation bilaterally with no crackles, wheezes, or rhonchi. Cardiovascular: Regular Rate/Rhythm, Normal S1, Normal S2, No Murmurs/Rubs/ Gallops Abdomen: LUQ/LLQ tenderness improved, Non-distended, No masses, Normoactive bowel tones, Soft Musculoskeletal: Normal Range of Motion Extremities: No cyanosis/clubbing/edema bilaterally. Asterixis noted on exam bilaterally. Neurological: Grossly Neurologically Intact, Speech normal Psych: Anxious affect, no reports of hallucinations overnight. IVs and Medications Medications Reviewed: Medications were reviewed in detail Lab and Diagnostics Laboratory Tests Test 08/15/16 07:16 08/15/16 15:28 08/15/16 18:20 08/16/16 02:25 White Blood Count 3.3th/mm3 (3.8-10.1) 4.0th/mm3 (3.8-10.1) Red Blood Count 3.32mil/mm3 (3.90-5.20) 3.30mil/mm3 (3.90-5.20) Hemoglobin 10.7g/dL (12.0-15.6) 10.6g/dL (12.0-15.6) Hematocrit 30.2% (35.0-46.0) 30.4% (35.0-46.0) Mean Corpuscular Volume 91.0fL (81-100) 92.1fL (81-100) Mean Corpuscular Hemoglobin 32.2pg (27.0-35.0) 32.1pg (27.0-35.0) Mean Corpuscular Hemoglobin Concent 35.4% (32.0-37.0) 34.9% (32.0-37.0) Red Cell Distribution Width 22.4% (12.3-15.4) 23.0% (12.3-15.4) Platelet Count 131bil/L (150-400) 132bil/L (150-400) Neutrophils (%) (Auto) 59.8% (40-74) 69.0% (40-74) Lymphocytes (%) (Auto) 21.8% (14-46) 16.6% (14-46) Monocytes (%) (Auto) 14.8% (4-12) 12.2% (4-12) Eosinophils (%) (Auto) 2.4% (0-5) 1.5% (0-5) Basophils (%) (Auto) 0.9% (0-3) 0.5% (0-3) Sodium Level 140mEq/L (134-144) 142mEq/L (134-144) Potassium Level 3.0mEq/L (3.5-5.2) 3.0mEq/L (3.5-5.2) 3.4mEq/L (3.5-5.2) Chloride Level 94mEq/L (97-108) 99mEq/L (97-108) Carbon Dioxide Level 41mmol/L (18-29) 33mmol/L (18-29) Blood Urea Nitrogen 6mg/dL (8-27) 5mg/dL (8-27) Creatinine 0.84mg/dL (0.57-1.00) 0.73mg/dL (0.57-1.00) Estimat Glomerular Filtration Rate 96mL/min (>59) 113mL/min (>59) Glucose Level 87mg/dL (60-99) 92mg/dL (60-99) Calcium Level 7.1mg/dL (8.5-10.1) 7.0mg/dL (8.5-10.1) Magnesium Level 2.0mg/dL (1.6-2.6) Total Bilirubin 0.7mg/dL (0.0-1.2) 0.7mg/dL (0.0-1.2) Aspartate Amino Transf (AST/SGOT) 124U/L (0-50) 143U/L (0-50) Alanine Aminotransferase (ALT/SGPT) 65U/L (0-32) 64U/L (0-32) Alkaline Phosphatase 210U/L (25-165) 221U/L (25-165) Total Protein 4.4g/dL (6.4-8.4) 4.3g/dL (6.4-8.4) Albumin 2.3g/dL (3.4-5.0) 2.2g/dL (3.4-5.0) Cortisol 16.4ug/dL (.) Ammonia 46ug/dL (18-53) Prothrombin Time 11.2sec (8.1-12.5) Prothromb Time International Ratio 1.05ratio Activated Partial Thromboplast Time 25.5sec (22.8-33.0) Microbiology Result Diagram: 08/16/1622408/16/16224 Microbiology C DIFF TOXIN A AND B BY PCR Final 08/13/16-1837 Organism 1 POS FOR CDIF TOXIN C DIF TOXIN A&B PCR DETECTED TIME CALLED: 1835 DATE CALLED: 08/13/16 FLOOR/DOCTOR: CECILE/MIGUEL ÁNGEL Mayberry CALLED BY: CARMELO PCR testing alone cannot distinquish C. difficile disease from a carrier state, and therefore correlation with clinical findings is required. X-Rays, CTs and MRIs CXR IMPRESSION: No acute cardiopulmonary disease process. Dictated by: April Serrano MD, PhD on 08/13/2016 at 13:18 Approved by: April Serrano MD, PhD on 08/13/2016 at 13:18 CT ABD IMPRESSION: 1. Circumferential wall thickening involving the colon compatible with nonspecific colitis which has progressed in interval since prior examination obtained 06/17/2016. Differential diagnosis includes infectious/inflammatory, ischemic and neoplastic etiologies. 2. Circumferential wall thickening involving the terminal ileum has developed interval since the prior examination. Finding compatible with nonspecific terminal ileitis but may be related to "some backwash ileitis" secondary to colitis. 3. Enlarged appendix measuring 1.3 cm in diameter which could be related to appendicitis or a reactive change associated with colitis. Please correlate with clinical data. 4. Small amount of scattered ascites. 5. Colonic diverticulosis no evidence of diverticulitis. 6. Panniculitis. 7. Hepatic steatosis. 8. Moderate-sized hiatal hernia. 9. Trace bilateral pleural effusions. 10. Urinary bladder wall thickening which could be due to nondistention versus inflammation/infection. Please correlate with clinical and urinalysis data. 11. Stable left adrenal nodule. 12. Findings telephoned to Dr. Sudheer Alva on 08/13/2016 at 1337 hrs. Dictated by: April Serrano MD, PhD on 08/13/2016 at 13:43 Approved by: April Serrano MD, PhD on 08/13/2016 at 13:43 CT BRAIN IMPRESSION: No definite, acute intracranial abnormality is seen. If there is strong clinical suspicion for an acute stroke, please consider an MRI for further evaluation, as it is more sensitive (assuming that there is no contraindication to MRI). Note is made of age-appropriate brain parenchymal volume loss and chronic small vessel ischemic changes. Dictated by: Olayinka Thurman M.D. on 08/13/2016 at 12:14 Approved by: Olayinka Thurman M.D. on 08/13/2016 at 12:14 Additional Diagnostics ABG DateTimeAnalyzed 05:40:00 -_ pH ____7.474 - 7.350 7.450 pCO2 ___49.6__ -mmHg 35.0 45.0 pO2 ___69.8__ -mmHg 69.0 116 HCO3- ___36.0__ -mmol/L 22.0 26.0 ENDOSCOPY IMPRESSIONS: 1. Schatzki ring. 2. Large hiatal hernia from 32-40 cm from the incisors. 3. Mild nonerosive gastritis. ENDOSCOPY PATH REPORT FINAL DIAGNOSIS: 1.STOMACH, ANTRUM, BIOPSY: ANTRAL MUCOSA WITH NO SIGNIFICANT DIAGNOSTIC ABNORMALITY. Negative for Helicobacter pylori organisms. Negative for intestinal metaplasia. Negative for dysplasia and malignancy. 2.STOMACH, BODY, BIOPSY: BODY-TYPE MUCOSA WITH NO DIAGNOSTIC ABNORMALITY. Negative for Helicobacter pylori organisms. Negative for intestinal metaplasia. Negative for dysplasia and malignancy. Electronically Signed Out Meeta Nolen MD [facility] Pathology [facility] [address], [place] [address] Technical component performed at [facility], [facility] [address], [place], [address] Assessment & Plan Patient is a 71-year-old female with past medical history of CHF, COPD, mitral regurgitation, GERD, heavy alcohol abuse (last drink one week prior to admission ),admitted for treatment of ongoing diarrhea blood diarrhea, melena, nausea, vomiting, new onset hypokalemia and new onset hepatitis. Hospital Day 3 1. Colitis, acute, present on admission, improving Pt presents with "pitch black stools" after a brief episode of red stool. Given the presence of possible fistula, consider Crohn's. Hb is normal at this time. Celiac panel was negative. - Pt presents with diffuse ileal and colonic thickening on CT scan and upper GI bleed. Appendix appeared to be involved but likely secondary to colitis rather than isolated appendicitis. Stool PCR postive for C.Diff colitis. - Continue oral Vancomycin - Continue PO Flagyl - GI recommends follow up as outpatient for lower endoscopy once infection has resolved - Patient was started on IV Ciprofloxacin at admission, I see no reason to continue this medication, Discontinue today. - Discussed with GI, we appreciate their recommendations and expertise on this case 2. Altered mentation, acute, present on admission, improving - Patient elevated LFT at admission, continue to be elevated, low platelets , low albumin. Likely related to long history of drinking alcohol, colitis - Ammonia at admission 45 - Repeat ammonia 08/15/16, 46 - MRI brain ordered, no signs of Werneckii's encephalopathy - Continue IV thiamine 500 mg TID for two days then 250 mg once daily for additional 5 days stop on 08/20/16 - Discussed with GI, we appreciate their recommendations and expertise on this case 3. Alcoholic hepatitis, acute on chronic, present on admission - T bili, AST, ALT, alk phos all elevated, likely secondary to alcohol. Bilirubin elevated but pt is s/p cholecystectomy, so likely due to hepatic insult. Discriminant function score 0.6, which indicates good prognosis and low benefit from steroid treatment. Salicylates, EtOH, and APAP all negative on admission. - Abdominal US ordered, no signs of cirrhosis - Avoid hepatotoxic medications - Ammonia on presentation 45 08/13/16, repeat ammonia today, discussed with GI awaiting recommendations on treatment options if ammonia is elevated - hepatitis panel, negative - Continue to monitor daily CMP 4. History of alcohol abuse, present on admission. - Pt has history of substantial alcohol abuse, reportedly drinking 1/2 gallon of vodka every 1-2 days for several years. Last drink was last Saturday due to poor oral intake and severe weakness. EtOH negative on admission. - Likely presenting with symptoms of Wernekinck encephalitis vs Hepatic encephalopathy - Monitor for signs of withdrawal. - Continue IV thiamine 500 mg TID for two days then 250 mg once daily for additional 5 days stop on 08/20/16 - PRN Ativan 1 mg IV for tremors/agitation 5. Hypokalemia, present on admission, improving - Likely etiology due to diarrhea causing metabolic alkalosis. - Serum K 2.2- 2.4 08/14/16 08/16/16 3.3 - Patient given 40 meq x 3, continue to replete as necessary with goal of >4 - Continue IV fluid hydration - Repeat ABG in AM 6.Elevated TSH, history of hypothyroidism, chronic, present on admission - Free T4 low - TSH high - Repeat free T4, low - Check random cortisol in AM, normal - Start 50 mcg Levothyroxine PO - Repeat free T4 and TSH tomorrow Am 7. Possible colovesicular fistula, present on admission, - CT abd/pelvis shows possible colovesicular fistula, with thickened bladder wall. Suspicious for Crohn's disease vs chronic colonic inflammation. - Patient will likely need follow up as outpatient, to monitor this - Continue to monitor, UA negative 8. History of UTI, present on admission - Thickened bladder wall on CT - UA, 6-10 WBC, few bacteria 9. Acute upper GI bleed, present on admission, ruled out - Pt presents with "pitch black stools" after a brief episode of red stool. Given her history of GERD, peptic ulcer disease is possible. CT abdomen and pelvis with contrast on 06/25/16 which showed diffuse thickening throughout the ileum and entire colon along with a possible colonic vesicular fistula. Given the presence of possible fistula, consider Crohn's. Hb is normal at this time. Celiac panel was negative. - Upper endoscopy negative for acute bleed. - Stool PCR, Positive for C.Diff - Continue oral Vancomycin - Continue to monitor H&H, transfuse if necessary - Continue IV Protonix - GI following, we appreciate their time and expertise in this case. 11. diastolic chf ( echo 2015 EF 60-65%), - Continue to monitor volume status Chronic issues known prior to admission, present on admission 10. Moderate-severe mitral regurg, 12. HTN 13. hyperlipidemia, 14. CAD (cardiac cath 2013) 15. atrial fibrillation 16. asthma, 17. copd, 18 Depression and anxiety 19. smoker - Nicotine patch ordered 20. hiatal hernia, gerd, colon polyps 21. dysphagia - needs smaller pills on discharge 22. nocturnal hypoxia s/p home O2 script by PCP 06/2016 Diet npo at midnight, clear for now DVT prophylaxis: Hold Heparin, SCDs in place CODE STATUS:FULL CODE Disposition: Patient is admitted under inpatient status with expected length of stay greater than 2 midnights due to severity of presenting symptoms, risk of adverse event, and complexity of treatment plan. VTE Mechanical Devices: Intermittant Pneumatic CD Attending Statement The patient was seen and examined together with Resident/House-staff on 08/16/16 and I agree with the history, exam and plan as outlined in the note above. RAGINI MARINO DO Aug 16, 2016 06:31 Nicolas Rendon Aug 17, 2016 17:20
--- NOTE | 2016-08-16 18:05 | NUR ---
K+ Patient K+ was low at 3.4. Recieved 40mEq IV, and K+ was 3.3 when lab was rechecked. Another 40 mEq given PO and awaiting redraw. Will continue to follow K/Mag protocol.
[2016-08-17] VITALS (13 sets, daily range): BP systolic 12–164; BP diastolic 64–98; PULSE 89–100; RESP 14–26; O2SAT 90–94
[2016-08-17] MEDS ORDERED: KCl 40 mEq/100 mL Premix (K 3 - 3.7 & Creat < 2) IV ONE (03:05)
[2016-08-17] MEDS: Vancomycin 250 mg Oral Capsule PO SCH ×4 (03:44→20:50)
[2016-08-17 04:01] LABS: BASOPHILS % (AUTO) 0.8 % (0-3); EOSINOPHILS % (AUTO) 1.5 % (0-5); MONOCYTES % (AUTO) 15.1 % (4-12); Mean Corpuscular Hemoglobin 32.6 pg (27.0-35.0); Mean Corpuscular Volume 90.3 fL (81-100); NEUTROPHILS % (AUTO) 64.4 % (40-74); Platelet Count 138 bil/L (150-400)
[2016-08-17] MEDS: Albuterol-Ipratropium 3 mL Inhalation Solution NEB SCH ×4 (06:00→22:44)
[2016-08-17] MEDS ORDERED: Potassium Chloride 20 mEq SR Tablet PO ONE (08:20)
[2016-08-17] MEDS: Multivit-Miner-Folic Acid-Iron Tablet PO SCH (08:30)
[2016-08-17] MEDS: Thiamine Inj 500 MG in Dextrose 5% 50 ML IV SCH ×3 (08:30→20:50)
[2016-08-17] MEDS ORDERED: Albuterol 1.25 mg/3 mL Inhalation Solution NEB PRN (09:35)
[2016-08-17] MEDS ORDERED: LORazepam 1 mg Tablet PO PRN (09:35)
--- NOTE | 2016-08-17 11:33 | PCM.PNMED ---
Subjective Date of Service Aug 17, 2016 Subjective Patient is alert and oriented today, more conversational and less confused. She has had several bouts of diarrhea within the last day but improving. She reports shortness of breath, but denies nausea, vomiting, fevers, or chills. Exam Vital Signs Vital Sign - Last Date Time Temp Pulse Resp B/P Pulse Ox O2 Delivery O2 Flow Rate FiO2 08/17/16 09:27 89 20 90 Room Air 08/17/16 03:42 164/98 08/17/16 00:10 36.7 2.00 Intake and Output 08/16/16 08/16/16 08/17/16 Cumulative From/Thru 15:00 23:00 07:00 08/13/16 11:25 - 08/17/16 06:38 Intake Total 1032 ml 500 ml 7184 ml Output Total 850 ml 950 ml 4125 ml Balance 182 ml -450 ml 3059 ml Intake Oral 510 ml 500 ml 1654 ml IV Total 522 ml 5530 ml Output Urine Total 850 ml 950 ml 4100 ml Stool Total 25 ml # Voids 1 # Bowel Movements 3 2 12 Exam General: Alert, Oriented x3, Cooperative, Appears much less confused than previously. Head: Normocephalic, atraumatic. External ears normal. Eyes: PERRLA, EOMI. Anicteric sclerae. Mouth: Mouth Normal, Mucous Membranes Dry Chest & Lungs: Clear to auscultation bilaterally with no crackles, wheezes, or rhonchi. Cardiovascular: Regular Rate/Rhythm, Normal S1, Normal S2, No Murmurs/Rubs/ Gallops Abdomen: Mild tenderness, mild distension, No masses, Normoactive bowel tones, Soft Musculoskeletal: Normal Range of Motion Extremities: No cyanosis/clubbing/edema bilaterally Neurological: Grossly Neurologically Intact Lab and Diagnostics Result Diagram: 08/17/16 0355 08/17/16 1000 Microbiology C DIFF TOXIN A AND B BY PCR Final 08/13/16-1837 Organism 1 POS FOR CDIF TOXIN C DIF TOXIN A&B PCR DETECTED TIME CALLED: 1835 DATE CALLED: 08/13/16 FLOOR/DOCTOR: CECILE/MIGUEL ÁNGEL Mayberry CALLED BY: CARMELO PCR testing alone cannot distinquish C. difficile disease from a carrier state, and therefore correlation with clinical findings is required. X-Rays, CTs and MRIs CXR IMPRESSION: No acute cardiopulmonary disease process. Dictated by: April Serrano MD, PhD on 08/13/2016 at 13:18 Approved by: April Serrano MD, PhD on 08/13/2016 at 13:18 CT ABD IMPRESSION: 1. Circumferential wall thickening involving the colon compatible with nonspecific colitis which has progressed in interval since prior examination obtained 06/17/2016. Differential diagnosis includes infectious/inflammatory, ischemic and neoplastic etiologies. 2. Circumferential wall thickening involving the terminal ileum has developed interval since the prior examination. Finding compatible with nonspecific terminal ileitis but may be related to "some backwash ileitis" secondary to colitis. 3. Enlarged appendix measuring 1.3 cm in diameter which could be related to appendicitis or a reactive change associated with colitis. Please correlate with clinical data. 4. Small amount of scattered ascites. 5. Colonic diverticulosis no evidence of diverticulitis. 6. Panniculitis. 7. Hepatic steatosis. 8. Moderate-sized hiatal hernia. 9. Trace bilateral pleural effusions. 10. Urinary bladder wall thickening which could be due to nondistention versus inflammation/infection. Please correlate with clinical and urinalysis data. 11. Stable left adrenal nodule. 12. Findings telephoned to Dr. Sudheer Alva on 08/13/2016 at 1337 hrs. Dictated by: April Serrano MD, PhD on 08/13/2016 at 13:43 Approved by: April Serrano MD, PhD on 08/13/2016 at 13:43 CT BRAIN IMPRESSION: No definite, acute intracranial abnormality is seen. If there is strong clinical suspicion for an acute stroke, please consider an MRI for further evaluation, as it is more sensitive (assuming that there is no contraindication to MRI). Note is made of age-appropriate brain parenchymal volume loss and chronic small vessel ischemic changes. Dictated by: Olayinka Thurman M.D. on 08/13/2016 at 12:14 Approved by: Olayinka Thurman M.D. on 08/13/2016 at 12:14 Additional Diagnostics ABG DateTimeAnalyzed 05:40:00 -_ pH ____7.474 - 7.350 7.450 pCO2 ___49.6__ -mmHg 35.0 45.0 pO2 ___69.8__ -mmHg 69.0 116 HCO3- ___36.0__ -mmol/L 22.0 26.0 ENDOSCOPY IMPRESSIONS: 1. Schatzki ring. 2. Large hiatal hernia from 32-40 cm from the incisors. 3. Mild nonerosive gastritis. ENDOSCOPY PATH REPORT FINAL DIAGNOSIS: 1.STOMACH, ANTRUM, BIOPSY: ANTRAL MUCOSA WITH NO SIGNIFICANT DIAGNOSTIC ABNORMALITY. Negative for Helicobacter pylori organisms. Negative for intestinal metaplasia. Negative for dysplasia and malignancy. 2.STOMACH, BODY, BIOPSY: BODY-TYPE MUCOSA WITH NO DIAGNOSTIC ABNORMALITY. Negative for Helicobacter pylori organisms. Negative for intestinal metaplasia. Negative for dysplasia and malignancy. Electronically Signed Out Meeta Nolen MD [facility] Pathology [facility] [address], [place] [address] Technical component performed at [facility], [address] [place] [address] [address], [place], [address] Assessment & Plan Patient is a 71 year old female with a history of hypertension, CHF, COPD, mitral valve regurgitation, GERD for 20 years, and heavy alcohol abuse since age of 22 who presents with abdominal pain, bloody diarrhea and melena, nausea, and vomiting. PCR positive for C. diff C. diff Colitis, acute. - Pt presents with diffuse ileal and colonic thickening on CT scan and upper GI bleed. Appendix appeared to be involved but likely secondary to colitis rather than isolated appendicitis. Stool PCR positive for C diff. - PO Flagyl and PO Vancomycin - Pt is appropriate for discharge home from a GI standpoint as soon as diarrhea improves. Possible GI bleed, acute. - Pt presented with "pitch black stools" after a brief episode of red stool. Given her history of GERD, peptic ulcer disease is possible. CT abdomen and pelvis with contrast on 06/25/16 which showed diffuse thickening throughout the ileum and entire colon along with a possible colonic vesicular fistula. Given the presence of possible fistula, consider Crohn's. Celiac panel was negative. EGD showed a patent Schatzki ring, large hiatal hernia, and mild nonerosive gastritis. Pathology on gastric biopsies were normal. Likely cause of bleed is C diff colitis. Hb is stable at this time. - Continue to monitor H&H, transfuse if necessary - Continue to treat C diff Acute encephalopathy, improved. - Pt presented with altered mental status on admission, poor mentation, disoriented. Head MRI was negative. Hepatic US showed hepatomegaly with steatosis. No definitive changes of cirrhosis. Her encephalopathy was unlikely to have been Wernicke's or hepatic encephalopathy, given that it is resolving spontaneously, and is better explained by other concomitant conditions such as her alcohol withdrawal and severe hypothyroidism. - Treat hypothyroidism - Continue to monitor Possible colovesicular fistula - CT abd/pelvis shows possible colovesicular fistula, with thickened bladder wall. Suspicious for Crohn's disease vs chronic colonic inflammation secondary to likely longstanding C diff infection. UA and urine cultures were negative. - Continue to monitor Elevated LFTs, acute - T bili, AST, ALT, alk phos all elevated, likely secondary to alcoholic hepatitis. Bilirubin elevated but pt is s/p cholecystectomy, so likely due to hepatic insult. Discriminant function score 0.6, which indicates good prognosis and low benefit from steroid treatment. Salicylates, EtOH, and APAP all negative on admission. - Avoid hepatotoxic medications - Continue to monitor CMP VTE Mechanical Devices: Intermittant Pneumatic CD Neri Pittman Aug 17, 2016 11:33
[2016-08-17] MEDS ORDERED: Potassium Chloride 20 mEq/15 mL 15mL Oral Soln PO ONE (16:05)
[2016-08-17] MEDS: LORazepam 1 mg Tablet PO PRN ×2 (17:27→22:04)
--- NOTE | 2016-08-17 17:43 | NUR ---
Social Work: Continued Discharge Planning D: Pt discussed in am rounds. Pt not medically stable for discharge at this time. No anticipated timeframe provided by MD. DIRECTOR PHARMACOVIGILANCE requested PT evaluation. Per PT they are unable to see pt today. DIRECTOR PHARMACOVIGILANCE requested RN ambulate pt to assess for possible mobility needs. At this time, no RN notes have been entered regarding pt's ambulation. Per [employer] pt is 1-2 person assist which is not her POLF. DIRECTOR PHARMACOVIGILANCE again left voicemail for pt's bedside RN to ambulate pt. Per CHIEF OF PEDIATRIC UROLOGY, pt has been ambulating well and has been I however has not been motivated to move. DIRECTOR PHARMACOVIGILANCE met with pt at bedside. Pt anticipates discharge home. DIRECTOR PHARMACOVIGILANCE informed her that RN and PT staff will be working with her to assess her mobility needs. She understands. A: Pt who was previously I at baseline. P: Anticipate pt to discharge home; DIRECTOR PHARMACOVIGILANCE to rule out possible home health for pt and follow up with PT recommendations [facility]
--- NOTE | 2016-08-17 18:00 | NUR ---
P.T. Eval/up to bedside chair twice today w/ RN Pt participated in P.T. eval midafternoon; see documentation. Up to BSC, bedside chair with 2 person assist; c/o feeling extremely weak & fatigue since hospital admission. Frequent uncontrollable diarrhea of C-Diff complicates being up moving about, states pt.
--- NOTE | 2016-08-17 18:30 | NUR ---
Pt declines firmly to have Brandt dc'd tonight as per MD order Pt states will consider having Brandt dc'd in a.m. after discussing situation with MD on rounds. Continue to monitor closely/ frequent perianal cleansing necessary due to incontinent of C-Diff diarrhea. RN-to-RN report completed @ shift change to re-evaluate in a.m. on rounds.
--- NOTE | 2016-08-17 19:24 | PCM.PNMED ---
Subjective Date of Service Aug 17, 2016 Subjective Patient is a 71-year-old female with past medical history of CHF, COPD, mitral regurgitation, GERD, heavy alcohol abuse (last drink one week prior to admission ),admitted for treatment of ongoing diarrhea blood diarrhea, melena, nausea, vomiting, new onset hypokalemia and new onset hepatitis. Hospital Day 4. 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 Patient stated that she feels better, appetite has returned. Patient denies nausea, vomiting, headache, tremors. ROS negative except as mentioned above Exam Vital Signs Vital Sign - Last Date Time Temp Pulse Resp B/P Pulse Ox O2 Delivery O2 Flow Rate FiO2 08/17/16 05:52 100 08/17/16 03:42 18 164/98 93 Room Air 08/17/16 00:10 36.7 2.00 Intake and Output 08/16/16 08/16/16 08/17/16 Cumulative From/Thru 15:00 23:00 07:00 08/13/16 11:25 - 08/17/16 06:38 Intake Total 1032 ml 500 ml 7184 ml Output Total 850 ml 950 ml 4125 ml Balance 182 ml -450 ml 3059 ml Intake Oral 510 ml 500 ml 1654 ml IV Total 522 ml 5530 ml Output Urine Total 850 ml 950 ml 4100 ml Stool Total 25 ml # Voids 1 # Bowel Movements 3 2 12 Exam General: Alert to person and place and time, mentation significantly improved from yesterday, Cooperative, Appears severely fatigued and chronically ill. Head: Normocephalic, atraumatic. External ears normal. Eyes: PERRLA, EOMI. Anicteric sclerae. Negative for Nystagmus. Mouth: Mouth Normal, Mucous Membranes Dry Chest & Lungs: Clear to auscultation bilaterally with no crackles, wheezes, or rhonchi. Cardiovascular: Regular Rate/Rhythm, Normal S1, Normal S2, No Murmurs/Rubs/ Gallops Abdomen: LUQ/LLQ tenderness improved, Non-distended, No masses, Normoactive bowel tones, Soft Musculoskeletal: Normal Range of Motion Extremities: No cyanosis/clubbing/edema bilaterally. Asterixis noted on exam bilaterally. Neurological: Grossly Neurologically Intact, Speech normal Psych: Anxious affect, no reports of hallucinations overnight. IVs and Medications Medications Reviewed: Medications were reviewed in detail Lab and Diagnostics Result Diagram: 08/17/1635408/17/16354 Microbiology C DIFF TOXIN A AND B BY PCR Final 08/13/16-1837 Organism 1 POS FOR CDIF TOXIN C DIF TOXIN A&B PCR DETECTED TIME CALLED: 1835 DATE CALLED: 08/13/16 FLOOR/DOCTOR: CECILE/MIGUEL ÁNGEL [place] CALLED BY: KLEmily PCR testing alone cannot distinquish C. difficile disease from a carrier state, and therefore correlation with clinical findings is required. X-Rays, CTs and MRIs CXR IMPRESSION: No acute cardiopulmonary disease process. Dictated by: April Serrano MD, PhD on 08/13/2016 at 13:18 Approved by: April Serrano MD, PhD on 08/13/2016 at 13:18 CT ABD IMPRESSION: 1. Circumferential wall thickening involving the colon compatible with nonspecific colitis which has progressed in interval since prior examination obtained 06/17/2016. Differential diagnosis includes infectious/inflammatory, ischemic and neoplastic etiologies. 2. Circumferential wall thickening involving the terminal ileum has developed interval since the prior examination. Finding compatible with nonspecific terminal ileitis but may be related to "some backwash ileitis" secondary to colitis. 3. Enlarged appendix measuring 1.3 cm in diameter which could be related to appendicitis or a reactive change associated with colitis. Please correlate with clinical data. 4. Small amount of scattered ascites. 5. Colonic diverticulosis no evidence of diverticulitis. 6. Panniculitis. 7. Hepatic steatosis. 8. Moderate-sized hiatal hernia. 9. Trace bilateral pleural effusions. 10. Urinary bladder wall thickening which could be due to nondistention versus inflammation/infection. Please correlate with clinical and urinalysis data. 11. Stable left adrenal nodule. 12. Findings telephoned to Dr. Sudheer Alva on 08/13/2016 at 1337 hrs. Dictated by: April Serrano MD, PhD on 08/13/2016 at 13:43 Approved by: April Serrano MD, PhD on 08/13/2016 at 13:43 CT BRAIN IMPRESSION: No definite, acute intracranial abnormality is seen. If there is strong clinical suspicion for an acute stroke, please consider an MRI for further evaluation, as it is more sensitive (assuming that there is no contraindication to MRI). Note is made of age-appropriate brain parenchymal volume loss and chronic small vessel ischemic changes. Dictated by: Olayinka Thurman M.D. on 08/13/2016 at 12:14 Approved by: Olayinka Thurman M.D. on 08/13/2016 at 12:14 Additional Diagnostics ABG DateTimeAnalyzed 05:40:00 -_ pH ____7.474 - 7.350 7.450 pCO2 ___49.6__ -mmHg 35.0 45.0 pO2 ___69.8__ -mmHg 69.0 116 HCO3- ___36.0__ -mmol/L 22.0 26.0 ENDOSCOPY IMPRESSIONS: 1. Schatzki ring. 2. Large hiatal hernia from 32-40 cm from the incisors. 3. Mild nonerosive gastritis. ENDOSCOPY PATH REPORT FINAL DIAGNOSIS: 1.STOMACH, ANTRUM, BIOPSY: ANTRAL MUCOSA WITH NO SIGNIFICANT DIAGNOSTIC ABNORMALITY. Negative for Helicobacter pylori organisms. Negative for intestinal metaplasia. Negative for dysplasia and malignancy. 2.STOMACH, BODY, BIOPSY: BODY-TYPE MUCOSA WITH NO DIAGNOSTIC ABNORMALITY. Negative for Helicobacter pylori organisms. Negative for intestinal metaplasia. Negative for dysplasia and malignancy. Electronically Signed Out Meeta Nolen MD [facility] [address], [place] [address] Technical component performed at [facility], [address], [place], [address] Assessment & Plan Patient is a 71-year-old female with past medical history of CHF, COPD, mitral regurgitation, GERD, heavy alcohol abuse (last drink one week prior to admission ),admitted for treatment of ongoing diarrhea blood diarrhea, melena, nausea, vomiting, new onset hypokalemia and new onset hepatitis. Hospital Day 4 1. Colitis, acute, present on admission, improving - Pt presented with "pitch black stools" after a brief episode of red stool. Given the presence of possible fistula, consider Crohn's. Hb is normal at this time. Celiac panel was negative. BM >6 over past 24 hours - Pt presents with diffuse ileal and colonic thickening on CT scan and upper GI bleed. Appendix appeared to be involved but likely secondary to colitis rather than isolated appendicitis. Stool PCR postive for C.Diff colitis. - Continue oral Vancomycin - Continue PO Flagyl - GI recommends follow up as outpatient for lower endoscopy once infection has resolved - Patient was started on IV Ciprofloxacin at admission, I see no reason to continue this medication, Discontinue today. - Discussed with GI, we appreciate their recommendations and expertise on this case 2. Altered mentation, acute, present on admission, improving - Patient elevated LFT at admission, continue to be elevated, low platelets , low albumin. Likely related to long history of drinking alcohol, colitis - Ammonia at admission 45 - Repeat ammonia 08/15/16, 46 - MRI brain ordered, no signs of Werneckii's encephalopathy - Continue IV thiamine 500 mg TID for two days then 250 mg once daily for additional 5 days stop on 08/20/16 - Discussed with GI, we appreciate their recommendations and expertise on this case 3. Alcoholic hepatitis, acute on chronic, present on admission - T bili, AST, ALT, alk phos all elevated, likely secondary to alcohol. Bilirubin elevated but pt is s/p cholecystectomy, so likely due to hepatic insult. Discriminant function score 0.6, which indicates good prognosis and low benefit from steroid treatment. Salicylates, EtOH, and APAP all negative on admission. - Abdominal US ordered, no signs of cirrhosis - Avoid hepatotoxic medications - Ammonia on presentation 45 08/13/16, repeat ammonia today, discussed with GI awaiting recommendations on treatment options if ammonia is elevated - hepatitis panel, negative - Continue to monitor daily CMP 4. History of alcohol abuse, present on admission. - Pt has history of substantial alcohol abuse, reportedly drinking 1/2 gallon of vodka every 1-2 days for several years. Last drink was last Saturday due to poor oral intake and severe weakness. EtOH negative on admission. - Likely presenting with symptoms of Wernekinck encephalitis vs Hepatic encephalopathy - Monitor for signs of withdrawal. - Continue IV thiamine 500 mg TID for two days then 250 mg once daily for additional 5 days stop on 08/20/16 - PRN Ativan 1 mg IV for tremors/agitation 5. Hypokalemia, present on admission, improving - Likely etiology due to diarrhea causing metabolic alkalosis. - Serum K 2.2- 2.4 08/14/16 08/16/16 3.3 08/17/16 3.7 AM PM 4.0 - Patient given 40 meq x 1 IV, continue to replete as necessary with goal of >4 - Continue cautious IV fluid hydration - Repeat ABG in AM - Repeat BMP in AM 6. Metabolic alkalosis, acute, present on admission - Repeat ABG showed improvement of alkalosis - Repeat ABG in AM - Repeat BMP in AM 7.Elevated TSH, history of hypothyroidism, chronic, present on admission - Free T4 low - TSH high - Repeat free T4, low - Check random cortisol in AM, normal - Start 50 mcg Levothyroxine PO - Repeat free T4 and TSH tomorrow Am 8. Possible colovesicular fistula, present on admission, - CT abd/pelvis shows possible colovesicular fistula, with thickened bladder wall. Suspicious for Crohn's disease vs chronic colonic inflammation. - Patient will likely need follow up as outpatient, to monitor this - Continue to monitor, UA negative 9. History of UTI, present on admission - Thickened bladder wall on CT - UA, 6-10 WBC, few bacteria 10. Acute upper GI bleed, present on admission, ruled out - Pt presents with "pitch black stools" after a brief episode of red stool. Given her history of GERD, peptic ulcer disease is possible. CT abdomen and pelvis with contrast on 06/25/16 which showed diffuse thickening throughout the ileum and entire colon along with a possible colonic vesicular fistula. Given the presence of possible fistula, consider Crohn's. Hb is normal at this time. Celiac panel was negative. - Upper endoscopy negative for acute bleed. - Stool PCR, Positive for C.Diff - Continue oral Vancomycin - Continue to monitor H&H, transfuse if necessary - Continue IV Protonix - GI following, we appreciate their time and expertise in this case. 11. diastolic chf ( echo 2015 EF 60-65%), - Continue to monitor volume status Chronic issues known prior to admission, present on admission 12. Moderate-severe mitral regurg, 13. HTN 14. hyperlipidemia, 15. CAD (cardiac cath 8 2013) 16. atrial fibrillation 17. asthma, 18. copd, 19 Depression and anxiety 20. smoker - Nicotine patch ordered 21. hiatal hernia, gerd, colon polyps 22. dysphagia - needs smaller pills on discharge 23. nocturnal hypoxia s/p home O2 script by PCP 06/2016 Diet npo at midnight, clear for now DVT prophylaxis: Hold Heparin, SCDs in place CODE STATUS:FULL CODE Disposition: Likely discharge to home with resolution of colitis. VTE Mechanical Devices: Intermittant Pneumatic CD Attending Statement The patient was seen and examined together with Resident/House-staff on 08/17/16 and I agree with the history, exam and plan as outlined in the note above. RAGINI MARINO DO Aug 17, 2016 07:41 Nicolas Rendon Aug 18, 2016 17:13
--- NOTE | 2016-08-17 20:49 | ABG ---
DateTimeAnalyzed 20:44:00 -_ pH ____7.490 - pCO2 ___43.5__ -mmHg pO2 ___33.4__ -mmHg HCO3- ___32.8__ -mmol/L ABE ____8.8__ -mmol/L tHb ___10.7__ -g/dL O2Hb ___60.4__ -% COHb ____1.4__ -% MetHb ____0.9__ -% sO2 ___61.8__ -% FIO2 ___21.0__ -% Drawn By rn - Date/Time Notified____ 20:49:00 -_ Notified By jh - Notified Whom celine wswan - B 736 -mmHg tO2 ____9.1__ -Vol% Jassi test N/A -
[2016-08-17] MEDS: Budesonide 0.5 mg/2 mL Inhalation Solution NEB PRN (22:45)
[2016-08-18] VITALS (8 sets, daily range): BP systolic 120–151; BP diastolic 82–101; PULSE 92–114; RESP 16–22; O2SAT 92–96
[2016-08-18] MEDS: Vancomycin 100 mg/mL Oral Solution PO SCH ×3 (01:27→14:47)
[2016-08-18 05:01] LABS: BASOPHILS % (AUTO) 1.1 % (0-3); EOSINOPHILS % (AUTO) 1.1 % (0-5); MONOCYTES % (AUTO) 21.6 % (4-12); Mean Corpuscular Hemoglobin 32.2 pg (27.0-35.0); Mean Corpuscular Volume 90.6 fL (81-100); NEUTROPHILS % (AUTO) 58.3 % (40-74); Platelet Count 150 bil/L (150-400)
[2016-08-18 05:14] LABS: INR 1.05 ratio
[2016-08-18 05:23] LABS: Magnesium 1.7 mg/dL (1.6-2.6)
[2016-08-18] MEDS: Albuterol-Ipratropium 3 mL Inhalation Solution NEB SCH ×4 (06:00→21:00)
--- NOTE | 2016-08-18 06:03 | NUR ---
Anxiety, pain, mobility Patient requesting Ativan for Anxiety and Morphine for pain. Both effective. 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 Patient able to sleep most of shift. Patient needs encouragement to move independently in bed and do independent cares. Assistance provided as necessary.
[2016-08-18] MEDS: Multivit-Miner-Folic Acid-Iron Tablet PO SCH (08:14)
[2016-08-18] MEDS: Thiamine Inj 500 MG in Dextrose 5% 50 ML IV SCH ×3 (09:46→21:04)
--- NOTE | 2016-08-18 13:47 | DRSVH ---
PROCEDURE: CT ABDOMEN AND PELVIS WITH CONTRAST ([id number]) INDICATIONS: abdominal pain TECHNIQUE: After the administration of oral and intravenous contrast, 5 mm thick sections acquired from the diap hragms to the symphysis. 5 mm thick coronal and sagittal reformats were performed. For radiation do se reduction, the following was used: automated exposure control, adjustment of mA and/or kV accordi ng to patient size. COMPARISON: [facility], CT, CT ABD PELVIS W CON, 08/13/2016, 13:00. FINDINGS: Image quality: Excellent. ABDOMEN: Lung bases: Minimal to mild bilateral pleural effusions a superimposed consolidation, mildly increase d compared to prior exam. Solid organs: Liver is enlarged with steatosis. The spleen is normal in size and enhancement. Gallb ladder has been removed. Biliary system is non-dilated. Pancreas enhances normally. Left adrenal no dule is unchanged. Kidneys are normal in size and enhancement, without hydronephrosis. Peritoneum and bowel: As previously noted, the appendix is prominent measuring 13 mm. There is no marybeth rounding inflammatory change. There is a persistent appearance of thickening throughout the majority of the colon, as previously identified. The most prominent area remains within the distal descending and sigmoid colon, which is unchanged. Appearance of the descending and transverse colon demonstrate mild interval improvement. There remains residual thickening at the terminal ileum. There is very min imal dependent pelvic fluid, decreased compared to prior exam. Nodes and vessels: No retroperitoneal or mesenteric adenopathy. Aorta and inferior vena cava are no rmal in caliber. Miscellaneous: No ventral hernias. Prominent hiatal hernia is present. There is persistent subcutan eous fat stranding, unchanged. PELVIS: Genitourinary: Bladder is collapsed with a Brandt catheter demonstrating a diffusely thickened wall. Miscellaneous: No inguinal hernias or adenopathy. Bones: No suspicious bony lesions. No vertebral body compression fractures. Grade II anteriolisthe sis of L5 on S1 with pars defect is again noted. Multilevel degenerative changes throughout the visua lized thoracolumbar spine are identified. IMPRESSION: 1. Minimal to mild bilateral pleural effusions a superimposed consolidations, demonstrating a small d egree of interval progression compared to prior exam. Superimposed consolidation could represent inte rval atelectasis and/or development of pneumonia. 2. Persistent appearance of diffuse wall thickening throughout the colon extending into the terminal ileum. As noted above, there is mild improvement within the descending and transverse colon with a re latively stable appearance of the sigmoid colon. Findings could be related to infectious/inflammatory , ischemic or neoplastic etiologies. 3. Unchanged appearance of appendiceal enlargement, suspected to be secondary to reactive colitis. 4. Minimal dependent pelvic fluid, decreased compared to prior exam. Dictated by: Fannie Tabares M.D. on 08/18/2016 at 13:41 Approved by: Fannie Tabares M.D. on 08/18/2016 at 13:41
[2016-08-18] MEDS: LORazepam 1 mg Tablet PO PRN ×2 (14:47→21:34)
--- NOTE | 2016-08-18 17:34 | NUR ---
CIWA/Anxiety/Pain: Pt with CIWA scores of 2, no obvious s/s of withdrawal. Ativan and Morphine given for anxiety/pain x 1, appears to be effective for symptom relief. Up to BSC/chair with 1p assist, multiple loose BMs, all diarrhea. Brandt to gravity. Pt requires firm encouragement to do anything for herself, including applying lip balm for "my poor dry lips." Care ongoing.
[2016-08-18] MEDS ORDERED: SODIUM CHLORIDE 0.9% IV ONE (18:05)
[2016-08-18] MEDS ORDERED: MGPE IV ONE (18:05)
[2016-08-18] MEDS ORDERED: FOSPHENYTOIN IV ONE (18:05)
[2016-08-18 18:20] LABS: APPEARANCE,URINE CLOUDY (CLEAR,HAZY); COLOR,URINE YELLOW (YELLOW); OCCULT BLOOD,URINE LARGE (NEGATIVE); PH,URINE 8.5 (5.0-8.0)
[2016-08-18 18:21] LABS: UROBILINOGEN,URINE NORMAL (NORMAL)
[2016-08-18 18:57] LABS: Mean Corpuscular Hemoglobin 32.1 pg (27.0-35.0)
--- NOTE | 2016-08-18 19:37 | PCM.PNMED ---
Subjective Date of Service Aug 18, 2016 Subjective Patient is a 71-year-old female with past medical history of CHF, COPD, mitral regurgitation, GERD, heavy alcohol abuse (last drink one week prior to admission ),admitted for treatment of ongoing diarrhea blood diarrhea, melena, nausea, vomiting, new onset hypokalemia and new onset hepatitis. Hospital Day 5. 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 Patient stated that she feel more abdominal pain today than yesterday, appetite has decreased and she has worsening acid reflux. Patient denies nausea, vomiting, headache, tremors. ROS negative except as mentioned above Exam Vital Signs Vital Sign - Last Date Time Temp Pulse Resp B/P Pulse Ox O2 Delivery O2 Flow Rate FiO2 08/18/16 16:30 Supplement Oxygen 08/18/16 16:11 36.9 104 20 140/92 92 08/18/16 12:48 1.50 Intake and Output 08/17/16 08/17/16 08/18/16 Cumulative From/Thru 15:00 23:00 07:00 08/13/16 11:25 - 08/18/16 06:08 Intake Total 1068 ml 400 ml 8652 ml Output Total 400 ml 500 ml 5025 ml Balance 668 ml -100 ml 3627 ml Intake Oral 750 ml 300 ml 2704 ml IV Total 318 ml 100 ml 5948 ml Output Urine Total 400 ml 500 ml 5000 ml Stool Total 25 ml # Voids 1 # Bowel Movements 1 1 14 Exam General: Alert to person and place and time, mentation significantly improved from yesterday, Cooperative, Appears severely fatigued and chronically ill. Head: Normocephalic, atraumatic. External ears normal. Eyes: PERRLA, EOMI. Anicteric sclerae. Negative for Nystagmus. Mouth: Mouth Normal, Mucous Membranes Dry Chest & Lungs: Clear to auscultation bilaterally with no crackles, wheezes, or rhonchi. Cardiovascular: Regular Rate/Rhythm, Normal S1, Normal S2, No Murmurs/Rubs/ Gallops Abdomen: LUQ/LLQ tenderness improved, Non-distended, No masses, Normoactive bowel tones, Soft Musculoskeletal: Normal Range of Motion Extremities: No cyanosis/clubbing/edema bilaterally. Asterixis noted on exam bilaterally. Neurological: Grossly Neurologically Intact, Speech normal Psych: Anxious affect, no reports of hallucinations overnight. : Maki cath still in place after order placed yesterday to d/c maki, nurse reported patient refusing to have maki taken out because she does not want to use bed pain. Urine in bag is pink in color and hazy. Discussed need for maki to be removed, cath removed after patient agreed to have it removed after several conversations. Tip of catheter on removal had blood present. IVs and Medications Medications Reviewed: Medications were reviewed in detail Lab and Diagnostics Result Diagram: 08/18/[id number]/18/161847 Microbiology C DIFF TOXIN A AND B BY PCR Final 08/13/16-1837 Organism 1 POS FOR CDIF TOXIN C DIF TOXIN A&B PCR DETECTED TIME CALLED: 1835 DATE CALLED: 08/13/16 FLOOR/DOCTOR: CECILE/MIGUEL ÁNGEL Mayberry CALLED BY: CARMELO PCR testing alone cannot distinquish C. difficile disease from a carrier state, and therefore correlation with clinical findings is required. X-Rays, CTs and MRIs CXR IMPRESSION: No acute cardiopulmonary disease process. Dictated by: April Serrano MD, PhD on 08/13/2016 at 13:18 Approved by: April Serrano MD, PhD on 08/13/2016 at 13:18 CT ABD IMPRESSION: 1. Circumferential wall thickening involving the colon compatible with nonspecific colitis which has progressed in interval since prior examination obtained 06/17/2016. Differential diagnosis includes infectious/inflammatory, ischemic and neoplastic etiologies. 2. Circumferential wall thickening involving the terminal ileum has developed interval since the prior examination. Finding compatible with nonspecific terminal ileitis but may be related to "some backwash ileitis" secondary to colitis. 3. Enlarged appendix measuring 1.3 cm in diameter which could be related to appendicitis or a reactive change associated with colitis. Please correlate with clinical data. 4. Small amount of scattered ascites. 5. Colonic diverticulosis no evidence of diverticulitis. 6. Panniculitis. 7. Hepatic steatosis. 8. Moderate-sized hiatal hernia. 9. Trace bilateral pleural effusions. 10. Urinary bladder wall thickening which could be due to nondistention versus inflammation/infection. Please correlate with clinical and urinalysis data. 11. Stable left adrenal nodule. 12. Findings telephoned to Dr. Sudheer Alva on 08/13/2016 at 1337 hrs. Dictated by: April Serrano MD, PhD on 08/13/2016 at 13:43 Approved by: April Serrano MD, PhD on 08/13/2016 at 13:43 CT BRAIN IMPRESSION: No definite, acute intracranial abnormality is seen. If there is strong clinical suspicion for an acute stroke, please consider an MRI for further evaluation, as it is more sensitive (assuming that there is no contraindication to MRI). Note is made of age-appropriate brain parenchymal volume loss and chronic small vessel ischemic changes. Dictated by: Olayinka Thurman M.D. on 08/13/2016 at 12:14 Approved by: Olayinka Thurman M.D. on 08/13/2016 at 12:[address] IMPRESSION: 1. Minimal to mild bilateral pleural effusions a superimposed consolidations, demonstrating a small degree of interval progression compared to prior exam. Superimposed consolidation could represent interval atelectasis and/or development of pneumonia. 2. Persistent appearance of diffuse wall thickening throughout the colon extending into the terminal ileum. As noted above, there is mild improvement within the descending and transverse colon with a relatively stable appearance of the sigmoid colon. Findings could be related to infectious/inflammatory, ischemic or neoplastic etiologies. 3. Unchanged appearance of appendiceal enlargement, suspected to be secondary to reactive colitis. 4. Minimal dependent pelvic fluid, decreased compared to prior exam. Dictated by: Fannie Tabares M.D. on 08/18/2016 at 13:41 Approved by: Fannie Tabares M.D. on 08/18/2016 at 13:41 Additional Diagnostics [facility]G DateTimeAnalyzed 05:40:00 -_ pH ____7.474 - 7.350 7.450 pCO2 ___49.6__ -mmHg 35.0 45.0 pO2 ___69.8__ -mmHg 69.0 116 HCO3- ___36.0__ -mmol/L 22.0 26.0 ENDOSCOPY IMPRESSIONS: 1. Schatzki ring. 2. Large hiatal hernia from 32-40 cm from the incisors. 3. Mild nonerosive gastritis. ENDOSCOPY PATH REPORT FINAL DIAGNOSIS: 1.STOMACH, ANTRUM, BIOPSY: ANTRAL MUCOSA WITH NO SIGNIFICANT DIAGNOSTIC ABNORMALITY. Negative for Helicobacter pylori organisms. Negative for intestinal metaplasia. Negative for dysplasia and malignancy. 2.STOMACH, BODY, BIOPSY: BODY-TYPE MUCOSA WITH NO DIAGNOSTIC ABNORMALITY. Negative for Helicobacter pylori organisms. Negative for intestinal metaplasia. Negative for dysplasia and malignancy. Electronically Signed Out Meeta Nolen MD [facility] [address], [place] [address] Technical component performed at [facility], [facility] [address], [place], [address] Assessment & Plan Patient is a 71-year-old female with past medical history of CHF, COPD, mitral regurgitation, GERD, heavy alcohol abuse (last drink one week prior to admission ),admitted for treatment of ongoing diarrhea blood diarrhea, melena, nausea, vomiting, new onset hypokalemia and new onset hepatitis. Hospital Day 4 1. History of UTI, present on admission, -pink cloudy urine noted today in cath bag - Thickened bladder wall on CT - Repeat UA - Fosphenytoin ordered in error, pharmacy dispensed, given once, - Fosfomycin given once for UTI prophylaxis - Continue to monitor tomorrow, consider renal U/S if blood in urine does not resolve 2. Colitis, acute, present on admission, ongoing - Pt presented with "pitch black stools" after a brief episode of red stool. Given the presence of possible fistula, consider Crohn's. Hb is normal at this time. Celiac panel was negative. BM >7 over past 24 hours - Pt presents with diffuse ileal and colonic thickening on CT scan and upper GI bleed. Appendix appeared to be involved but likely secondary to colitis rather than isolated appendicitis. Stool PCR positive for C.Diff colitis. - Repeat CT showed minimal chnages from prior CT abdomen scan consider r/o diverticulitis, malignancy - Continue oral Vancomycin - Continue PO Flagyl - Consider changing antibiotic regimen tomorrow - GI recommends follow up as outpatient for lower endoscopy once infection has resolved - Patient was started on IV Ciprofloxacin at admission, I see no reason to continue this medication, Discontinue today. - Discussed with GI, we appreciate their recommendations and expertise on this case - Repeat Abdominal CT showed sign of acute appendicitis, increase in abdominal fluid, sign of diverticulitis - White count 4.5 08/18/16 3. Altered mentation, acute, present on admission, improving - Patient elevated LFT at admission, continue to be elevated, low platelets , low albumin. Likely related to long history of drinking alcohol, colitis - Ammonia at admission 45 - Repeat ammonia 08/15/16, 46 - MRI brain ordered, no signs of Werneckii's encephalopathy - Continue IV thiamine 500 mg TID for two days then 250 mg once daily for additional 5 days stop on 08/20/16 - Discussed with GI, we appreciate their recommendations and expertise on this case 4. Alcoholic hepatitis, acute on chronic, present on admission - T bili, AST, ALT, alk phos all elevated, likely secondary to alcohol. Bilirubin elevated but pt is s/p cholecystectomy, so likely due to hepatic insult. Discriminant function score 0.6, which indicates good prognosis and low benefit from steroid treatment. Salicylates, EtOH, and APAP all negative on admission. - Abdominal US ordered, no signs of cirrhosis - Avoid hepatotoxic medications - Ammonia on presentation 45 08/13/16, repeat ammonia today, discussed with GI awaiting recommendations on treatment options if ammonia is elevated - hepatitis panel, negative - Continue to monitor daily CMP 5. History of alcohol abuse, present on admission. - Pt has history of substantial alcohol abuse, reportedly drinking 1/2 gallon of vodka every 1-2 days for several years. Last drink was last Saturday due to poor oral intake and severe weakness. EtOH negative on admission. - Likely presenting with symptoms of Wernekinck encephalitis vs Hepatic encephalopathy - Monitor for signs of withdrawal. - Continue IV thiamine 500 mg TID for two days then 250 mg once daily for additional 5 days stop on 08/20/16 - PRN Ativan 1 mg IV for tremors/agitation 6. Hypokalemia, present on admission, improving - Likely etiology due to diarrhea causing metabolic alkalosis. - Serum K 2.2- 2.4 08/14/16 08/16/16 3.3 08/17/16 3.7 AM PM 4.0 - Patient given 40 meq x 1 IV, continue to replete as necessary with goal of >4 - Continue cautious IV fluid hydration - Repeat ABG in AM - Repeat BMP in AM 7. Metabolic alkalosis, acute, present on admission - Repeat ABG showed improvement of alkalosis - Repeat ABG in AM - Repeat BMP in AM 8.Elevated TSH, history of hypothyroidism, chronic, present on admission - Free T4 low - TSH high - Repeat free T4, low - Check random cortisol in AM, normal - Start 50 mcg Levothyroxine PO - Repeat free T4 and TSH tomorrow Am 9. Possible colovesicular fistula, present on admission, - CT abd/pelvis shows possible colovesicular fistula, with thickened bladder wall. Suspicious for Crohn's disease vs chronic colonic inflammation. - Patient will likely need follow up as outpatient, to monitor this - Continue to monitor, UA negative 10. Acute upper GI bleed, present on admission, ruled out - Pt presents with "pitch black stools" after a brief episode of red stool. Given her history of GERD, peptic ulcer disease is possible. CT abdomen and pelvis with contrast on 06/25/16 which showed diffuse thickening throughout the ileum and entire colon along with a possible colonic vesicular fistula. Given the presence of possible fistula, consider Crohn's. Hb is normal at this time. Celiac panel was negative. - Upper endoscopy negative for acute bleed. - Stool PCR, Positive for C.Diff - Continue oral Vancomycin - Continue to monitor H&H, transfuse if necessary - Continue IV Protonix - GI following, we appreciate their time and expertise in this case. 11. diastolic chf ( echo 2015 EF 60-65%), - Continue to monitor volume status Chronic issues known prior to admission, present on admission 12. Moderate-severe mitral regurg, 13. HTN 14. hyperlipidemia, 15. CAD (cardiac cath 2013) 16. atrial fibrillation 17. asthma, 18. copd, 19 Depression and anxiety 20. smoker - Nicotine patch ordered 21. hiatal hernia, gerd, colon polyps 22. dysphagia - needs smaller pills on discharge 23. nocturnal hypoxia s/p home O2 script by PCP 06/2016 Diet npo at midnight, clear for now DVT prophylaxis: Hold Heparin, SCDs in place CODE STATUS:FULL CODE Disposition: Likely discharge to home with resolution of colitis. VTE Mechanical Devices: Intermittant Pneumatic CD Attending Statement The patient was seen and examined together with Resident/House-staff on 08/18/16 and I agree with the history, exam and plan as outlined in the note above. RAGINI MARINO DO Aug 18, 2016 19:37 Nicolas eRndon Aug 19, 2016 16:57
[2016-08-18] MEDS: Vancomycin 250 mg Oral Capsule PO SCH (20:32)
[2016-08-18] MEDS: Ondansetron 2 mg/mL 2 mL Inj IVPUSH PRN (21:34)
[2016-08-19] VITALS (12 sets, daily range): BP systolic 111–140; BP diastolic 74–90; PULSE 63–117; RESP 16–22; O2SAT 89–96
--- NOTE | 2016-08-19 01:33 | NUR ---
CIWA/BM Pt scored a CIWA of 15 and received 10mg Diazepam x2, 1mg Ativan, and 4mg Zofran with good results. Pt c/o nausea and anxiety. Pt stated that she was being "offered a bottle of whiskey from the lady in the corner and would like some." Pt was reoriented and monitored for ETOH withdrawal. Pt continued to have loose stools throughout the night. Pt able to d/c to SNf if fewer then 6 BM in a 24hr period. Pt has had 4 BM from 1929 - 199. Vitals stable, no other issues noted at this time.
[2016-08-19] MEDS: Vancomycin 250 mg Oral Capsule PO SCH ×4 (02:32→19:54)
[2016-08-19 02:44] LABS: Mean Corpuscular Hemoglobin 31.8 pg (27.0-35.0)
[2016-08-19 02:58] LABS: INR 1.04 ratio
[2016-08-19] MEDS: Albuterol-Ipratropium 3 mL Inhalation Solution NEB SCH ×4 (06:00→19:38)
[2016-08-19] MEDS: Multivit-Miner-Folic Acid-Iron Tablet PO SCH (07:40)
[2016-08-19] MEDS: THIAMINE IV SCH (08:30)
[2016-08-19] MEDS ORDERED: THIAMINE IV SCH (08:30)
[2016-08-19] MEDS ORDERED: DEXTROSE 5% IV SCH (08:30)
[2016-08-19] MEDS: DEXTROSE 5% IV SCH (08:30)
[2016-08-19] MEDS: Budesonide 0.5 mg/2 mL Inhalation Solution NEB PRN (09:25)
--- NOTE | 2016-08-19 11:20 | PCM.PNMED ---
Subjective Date of Service Aug 19, 2016 Subjective reports continued diarrhea. says was having panic attack last night. Exam Vital Signs Vital Sign - Last Date Time Temp Pulse Resp B/P Pulse Ox O2 Delivery O2 Flow Rate FiO2 08/19/16 09:28 63 22 89 Room Air 08/19/16 07:49 37.0 133/88 2.00 Intake and Output 08/18/16 08/18/16 08/19/16 Cumulative From/Thru 15:00 23:00 07:00 08/13/16 11:25 - 08/19/16 06:17 Intake Total 510 ml 1100 ml 25058 ml Output Total 1200 ml 500 ml 6725 ml Balance -690 ml 600 ml 3537 ml Intake Oral 400 ml 950 ml 4054 ml IV Total 110 ml 150 ml 6208 ml Output Urine Total 1200 ml 500 ml 6700 ml Stool Total 25 ml # Voids 1 # Bowel Movements 4 0 18 General: Alert, Cooperative, No Acute Distress Eyes: Scleral Anicteric Mouth: Mucous Membr Moist/[place] Neck: Supple Chest & Lungs: Chest Wall Normal, Clear to auscultation & percussion Cardiovascular: Regular Rate/Rhythm Abdomen: Non-tender, Non-distended, Normoactive bowel tones, Soft Neurological: Grossly Neurologically Intact, Normal Speech IVs and Medications Medications Reviewed: Medications were reviewed in detail Lab and Diagnostics Result Diagram: 08/19/165 08/19/16 023 Microbiology C DIFF TOXIN A AND B BY PCR Final 08/13/16-1837 Organism 1 POS FOR CDIF TOXIN C DIF TOXIN A&B PCR DETECTED TIME CALLED: 1835 DATE CALLED: 08/13/16 FLOOR/DOCTOR: CECILE/MIGUEL ÁNGEL Mayberry CALLED BY: CARMELO PCR testing alone cannot distinquish C. difficile disease from a carrier state, and therefore correlation with clinical findings is required. X-Rays, CTs and MRIs CXR IMPRESSION: No acute cardiopulmonary disease process. Dictated by: April Serrano MD, PhD on 08/13/2016 at 13:18 Approved by: April Serrano MD, PhD on 08/13/2016 at 13:18 CT ABD IMPRESSION: 1. Circumferential wall thickening involving the colon compatible with nonspecific colitis which has progressed in interval since prior examination obtained 06/17/2016. Differential diagnosis includes infectious/inflammatory, ischemic and neoplastic etiologies. 2. Circumferential wall thickening involving the terminal ileum has developed interval since the prior examination. Finding compatible with nonspecific terminal ileitis but may be related to "some backwash ileitis" secondary to colitis. 3. Enlarged appendix measuring 1.3 cm in diameter which could be related to appendicitis or a reactive change associated with colitis. Please correlate with clinical data. 4. Small amount of scattered ascites. 5. Colonic diverticulosis no evidence of diverticulitis. 6. Panniculitis. 7. Hepatic steatosis. 8. Moderate-sized hiatal hernia. 9. Trace bilateral pleural effusions. 10. Urinary bladder wall thickening which could be due to nondistention versus inflammation/infection. Please correlate with clinical and urinalysis data. 11. Stable left adrenal nodule. 12. Findings telephoned to Dr. Sudheer Alva on 08/13/2016 at 1337 hrs. Dictated by: April Serrano MD, PhD on 08/13/2016 at 13:43 Approved by: April Serrano MD, PhD on 08/13/2016 at 13:43 CT BRAIN IMPRESSION: No definite, acute intracranial abnormality is seen. If there is strong clinical suspicion for an acute stroke, please consider an MRI for further evaluation, as it is more sensitive (assuming that there is no contraindication to MRI). Note is made of age-appropriate brain parenchymal volume loss and chronic small vessel ischemic changes. Dictated by: Olayinka Thurman M.D. on 08/13/2016 at 12:14 Approved by: Olayinka Thurman M.D. on 08/13/2016 at 12:[address] IMPRESSION: 1. Minimal to mild bilateral pleural effusions a superimposed consolidations, demonstrating a small degree of interval progression compared to prior exam. Superimposed consolidation could represent interval atelectasis and/or development of pneumonia. 2. Persistent appearance of diffuse wall thickening throughout the colon extending into the terminal ileum. As noted above, there is mild improvement within the descending and transverse colon with a relatively stable appearance of the sigmoid colon. Findings could be related to infectious/inflammatory, ischemic or neoplastic etiologies. 3. Unchanged appearance of appendiceal enlargement, suspected to be secondary to reactive colitis. 4. Minimal dependent pelvic fluid, decreased compared to prior exam. Dictated by: Fannie Tabares M.D. on 08/18/2016 at 13:41 Approved by: Fannie Tabares M.D. on 08/18/2016 at 13:41 Additional Diagnostics [facility] DateTimeAnalyzed 05:40:00 -_ pH ____7.474 - 7.350 7.450 pCO2 ___49.6__ -mmHg 35.0 45.0 pO2 ___69.8__ -mmHg 69.0 116 HCO3- ___36.0__ -mmol/L 22.0 26.0 ENDOSCOPY IMPRESSIONS: 1. Schatzki ring. 2. Large hiatal hernia from 32-40 cm from the incisors. 3. Mild nonerosive gastritis. ENDOSCOPY PATH REPORT FINAL DIAGNOSIS: 1.STOMACH, ANTRUM, BIOPSY: ANTRAL MUCOSA WITH NO SIGNIFICANT DIAGNOSTIC ABNORMALITY. Negative for Helicobacter pylori organisms. Negative for intestinal metaplasia. Negative for dysplasia and malignancy. 2.STOMACH, BODY, BIOPSY: BODY-TYPE MUCOSA WITH NO DIAGNOSTIC ABNORMALITY. Negative for Helicobacter pylori organisms. Negative for intestinal metaplasia. Negative for dysplasia and malignancy. Electronically Signed Out Meeta Nolen MD [facility] [address], [place] [address] Technical component performed at [facility], [facility] [address], [place], [address] Assessment & Plan 71-year-old female with past medical history of CHF, COPD, mitral regurgitation , GERD, heavy alcohol abuse (last drink one week prior to admission),admitted for treatment of ongoing diarrhea blood diarrhea, melena, nausea, vomiting, new onset hypokalemia and new onset hepatitis. 1. Suspected acute UTI on admission, ruled out with negative urine culture 2. C. Diff Colitis, acute, present on admission, ongoing - Pt presented with "pitch black stools" after a brief episode of red stool. - CT suggestive of acute colitis. - Stool PCR positive for C.Diff - Continue oral Vancomycin - Continue PO Flagyl - appreciate GI consult. will f/u w/ recs - GI recommends follow up as outpatient for lower endoscopy once infection has resolved 3. Altered mentation, acute, present on admission. Resolved - Ammonia at admission 45 - MRI brain no signs of Werneckii's encephalopathy - Continue IV thiamine 500 mg TID for two days then 250 mg once daily. stop on 4. Alcoholic hepatitis, acute on chronic, present on admission - T bili, AST, ALT, alk phos all elevated, likely secondary to alcohol. Bilirubin elevated but pt is s/p cholecystectomy, so likely due to hepatic insult. Discriminant function score 0.6, - Abdominal US ordered, no signs of cirrhosis - hepatitis panel, negative 5. History of alcohol abuse, present on admission. - Pt has history of substantial alcohol abuse, reportedly drinking 1/2 gallon of vodka every 1-2 days for several years. Last drink was last Saturday due to poor oral intake and severe weakness. EtOH negative on admission. - Likely presenting with symptoms of Wernekinck encephalitis vs Hepatic encephalopathy - Monitor for signs of withdrawal. - PRN Ativan 1 mg IV for tremors/agitation 6. Acute Hypokalemia, present on admission. Resolved - Likely etiology due to diarrhea causing metabolic alkalosis. - f/u 7. Metabolic alkalosis, acute, present on admission. Resolved - f/u 8.Elevated TSH, history of hypothyroidism, chronic, present on admission - TSH high, Free T4 low - c/w Levothyroxine PO 9. Possible colovesicular fistula, present on admission, - CT abd/pelvis shows possible colovesicular fistula, with thickened bladder wall. Suspicious for Crohn's disease vs chronic colonic inflammation. - Patient will likely need follow up as outpatient, to monitor this 10. Acute upper GI bleed, present on admission, ruled out - Pt presents with "pitch black stools" after a brief episode of red stool. Given her history of GERD, peptic ulcer disease is possible. CT abdomen and pelvis with contrast on 06/25/16 which showed diffuse thickening throughout the ileum and entire colon along with a possible colonic vesicular fistula. Given the presence of possible fistula, consider Crohn's. Hb is normal at this time. Celiac panel was negative. - Upper endoscopy negative for acute bleed. - c/w treatment as noted above 11. diastolic chf ( echo 2015 EF 60-65%), stable. - Continue to monitor volume status 12. Moderate-severe mitral regurgitation. stable 13. HTN, chronic. stable 14. hyperlipidemia, stable 15. CAD (cardiac cath 2013). stable. 16. atrial fibrillation, chronic. stable. 17. asthma, stable. 18. copd, 19 Depression and anxiety 20. smoker - Nicotine patch ordered 21. hiatal hernia, gerd, colon polyps 22. dysphagia - needs smaller pills on discharge 23. nocturnal hypoxia s/p home O2 script by PCP 06/2016 Dispo: 2-3 days pending improved diarrhea VTE Mechanical Devices: Intermittant Pneumatic CD Time spent 30 min Nicolas Rendon Aug 19, 2016 11:20
[2016-08-19] MEDS: LORazepam 1 mg Tablet PO PRN ×2 (11:25→19:54)
--- NOTE | 2016-08-19 12:12 | NUR ---
[facility] signed
--- NOTE | 2016-08-19 17:06 | NUR ---
CIWA/Loose stools Pt CIWA today is 6, no PRN diazepam given. Pt did ask for PRN Ativan for anxiety today x1 with good results. Pt had only 2 small bm's today. She is wearing a brief for incontinence. She is both continent and incontinent. Pt worked with PT today. She is 1 PA with [facility] to [facility].
[2016-08-19] MEDS: Alum-Mag Hydrox-Simeth 30 mL Suspension PO PRN (18:08)
--- NOTE | 2016-08-19 21:28 | NUR ---
CIWA/BM/PAIN Pt A&Ox3, able to make needs known, vitals stable. Pt states that she is feeling better from then last night. Pt did c/o back pain and anxiety and was given 4 mg Morphine, 1 mg Ativan, and 10 mg Diazepam. Pt had a CIWA score of 6 for day shift and a score of 5 for my first assessment. Pt had 2 bowel movements for day shift and 0 on my shift as of 0. Pt is able to discharge to a SNF with fewer then 6 bowel movements in a 24 hour period. 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
[2016-08-20] MEDS: Vancomycin 250 mg Oral Capsule PO SCH ×3 (02:55→15:07)
[2016-08-20 04:44] VITALS: BP 123/77; PULSE 89; RESP 18; O2SAT 95
[2016-08-20 05:01] LABS: Mean Corpuscular Hemoglobin 32.8 pg (27.0-35.0); Mean Corpuscular Volume 90.8 fL (81-100)
[2016-08-20 05:16] LABS: INR 1.01 ratio
[2016-08-20 07:48] VITALS: BP 128/82; PULSE 102; RESP 22; O2SAT 95
[2016-08-20] MEDS: DEXTROSE 5% IV SCH (07:50)
[2016-08-20] MEDS: THIAMINE IV SCH (07:50)
[2016-08-20] MEDS: Multivit-Miner-Folic Acid-Iron Tablet PO SCH (07:51)
[2016-08-20] MEDS ORDERED: PREN1TAB25 PO (09:06)
[2016-08-20] MEDS: Albuterol-Ipratropium 3 mL Inhalation Solution NEB SCH ×2 (09:18→13:11)
[2016-08-20 09:20] VITALS: PULSE 83; RESP 20; O2SAT 94
[2016-08-20] MEDS: LORazepam 1 mg Tablet PO PRN (10:10)
--- NOTE | 2016-08-20 10:24 | PCM.DIMED ---
RAGINI MARINO DO 08/20/16 0906: Discharge Instructions Date of Service Aug 20, 2016 Dates of Hospitalization Aug 13, 2016 at 13:46 Discharge Diagnosis Discharge Diagnosis C. Difficile colitis ETOH Withdrawal Metabolic alkalosis hypo magnesemia hypo kalemia Diet Heart Healthy Activity Limited until seen by PCP, Home Health Phyical Therapy Call your provider Fever or Chills, Shortness of breath, Bleeding, Chest pain, Vomitting, Excessive diarrhea, Weakness (unilateral) Patient Instructions Discharge to senior care Please follow up with your Primary Doctor within one week of discharge from SNF You will need a colonoscopy once the infection has resolved, make arrangements to have this done as outpatient. Continue Vancomycin 250 mg by mouth daily for 7 more days Rx given Continue Flagyl 500 mg by mouth daily for four days Continue vitamin by mouth daily Lorazepam 1 mg PRn anxiety Levothyroxine 50 mcg PO daily Pulmcort one puff BID PRN SOB Zofran 20 mg PO once daily PRN nausea Albuterol 1-2 puff PRN SOB Nicotine patch 21 mg daily Continue home medications Continue daily PT physical therapy exercise, with goal of accomplishing ADLs If you have questions about alcohol abstinence programs please call us at any time for more information. If you experience worsening symptoms please call your PCP sooner and seek urgent medical care Follow-up plan as above Follow-up Provider: Davin Galan MD Follow-up with PCP in: 1 week Burt Pearl MD 08/21/16 1558: Discharge Instructions Attending's Statement The patient was seen and examined together with Dr. Marino on 08/20/2016 and I agree with the history, exam and plan as outlined in the note above. . RAGINI MARINO DO Aug 20, 2016 09:06 Burt Pearl MD Aug 21, 2016 15:58
[2016-08-20] MEDS ORDERED: METR500T PO ×2 (10:51→10:56)
[2016-08-20] MEDS ORDERED: VANC250C3 PO ×2 (10:51→10:56)
[2016-08-20] MEDS: Ondansetron 2 mg/mL 2 mL Inj IVPUSH PRN (10:57)
[2016-08-20 10:58] VITALS: PULSE 108
--- NOTE | 2016-08-20 11:56 | NUR ---
[facility] per [employer]. Patient is medically ready and needs to transfer today.
[2016-08-20 12:13] VITALS: BP 131/94; PULSE 113; RESP 20; O2SAT 96
--- NOTE | 2016-08-20 12:51 | NUR ---
Social Work Note: CD Assessment Current Circumstances: Kayy No is a 71 year old female admitted on 08/13/2016 for colitis and severe hypokalemia. Pt has been on CIWA protocol. Pt current CIWA is 2 due to nausea and anxiety. SW met with pt at bedside to assess for any unmet needs at offer resources. Pt was at bedside during this assessment, pt agreeable to conversation with him present. Hx of substance use: Pt explained that her alcohol intake had increased 20 years ago when she and her . Pt prefers vodka or whiskey and is unable to identify how much she drinks on a daily basis. Pt explained the amount she drinks depends on how much physical pain she is in, how she is feeling emotionally or if what she is drinking tastes good. Hx of tx programs/detox: Pt denies any inpt or outpt tx hx. Pt did participate in "adult children of alcoholic parents" support group for three meetings but decided it was not a good fit for her. Hx of w/d symptoms: Pt was experiencing shakes, nausea and anxiety while going through withdrawal during this hospitalization. Pt explained she otherwise does not experience any withdrawal symptoms and "can go days without drinking if I want to with no problems." Patients perception of the consequences of use: Pt does not identify her alcohol consumption as a problem for her. Suicide risk: Pt does report suicidal ideation during this hospitalization and occasionally thinking about "wanting to end it." Pt denies any current suicidal ideation or thoughts of harming herself or others. Pt denies any prior attempts but was thinking about a plan while feeling suicidal " a few years ago. I was trying to think of ways that would not be messy or hurt my family." Pt explained she did not identify anything specifically and did not act on these feelings. Pt denies any mental health tx hx and explained that she does not believe in counseling. Pt participated in safety planning and confirmed that she will communicate her feelings of suicidal ideation to her or agreed to call the crisis line number provided. Pt explained she will also contact her PCP provider if she feels like her anxiety or antidepressant medications are not working for her as well as they normally do. Pt declined any offers for mental health or CD resources. Motivation for tx: Pt declines any CD resources. Discharge Plan: Pt will be discharging to SNF when medically ready and then back home with her after she gets stronger at rehab. Pt declined any resources but was accepting of crisis line phone number to contact if she starts to feel suicidal at any point in time. Pt and pt deny any other needs at this time. SW to continue to follow if any needs arise. [facility]
[2016-08-20 13:13] VITALS: PULSE 83; RESP 26; O2SAT 94
--- NOTE | 2016-08-20 14:07 | NUR ---
Social Work Note: Discharge Data& Assessment: EMR reviewed. Per pt is medically ready to discharge today. PT is recommending SNF and pt is far from her baseline mobility and strength. SNF list provided for preferences. Pt explained she [facility] or [facility] for another [facility] Pt and pt updated and agreeable to plan. Pt to transport her privately. updated and agreeable to plan. RN notified. All updated and agreeable to plan. Pt declined any CD resources at this time. Pt was accepting of crisis line phone number in case she begins to experience suicidal ideation at any point in time and agreed to call the number or communicate with her . Pt and pt deny any other needs at this time. Plan: Per pt is medically ready to discharge to [facility] SNF with [facility] to follow via POV. Pt and pt deny any other needs at this time. All updated and agreeable to plan. [facility]
[2016-08-20] MEDS ORDERED: HYDR-4003 PO (14:41)
--- NOTE | 2016-08-20 15:34 | NUR ---
discharge Orders to discharge pt to SNF, [facility]. PICC line d/c'd by IV therapy after pt given pain medication. Tele d/c'd. Pt's to drive pt to [facility], provided with discharge packet and prescriptions to give to staff at [facility]. [facility] Pt escorted out via wheelchair with CREW CALLER in stable conditions with all belongings and discharged to [facility] with driving at 1525.
--- NOTE | 2016-08-20 19:03 | PCM.DC.MED ---
Discharge Summary Date of Service Aug 20, 2016 Dates of Hospitalization Date of Hospital Admission Aug 13, 2016 at 13:46 Date of Discharge: Aug 20, 2016 Providers: Admitting Physician: Emily Bush MD Primary Care Physician: Davin Galan MD Attending Physician: Emily Bush MD Diagnosis at Time of Discharge Diagnosis at Time of Discharge C. Difficile colitis ETOH Withdrawal Metabolic alkalosis hypo magnesemia hypo kalemia Procedures XRay, CTs & MRIs CXR IMPRESSION: No acute cardiopulmonary disease process. Dictated by: April Serrano MD, PhD on 08/13/2016 at 13:18 Approved by: April Serrano MD, PhD on 08/13/2016 at 13:18 CT ABD IMPRESSION: 1. Circumferential wall thickening involving the colon compatible with nonspecific colitis which has progressed in interval since prior examination obtained 06/17/2016. Differential diagnosis includes infectious/inflammatory, ischemic and neoplastic etiologies. 2. Circumferential wall thickening involving the terminal ileum has developed interval since the prior examination. Finding compatible with nonspecific terminal ileitis but may be related to "some backwash ileitis" secondary to colitis. 3. Enlarged appendix measuring 1.3 cm in diameter which could be related to appendicitis or a reactive change associated with colitis. Please correlate with clinical data. 4. Small amount of scattered ascites. 5. Colonic diverticulosis no evidence of diverticulitis. 6. Panniculitis. 7. Hepatic steatosis. 8. Moderate-sized hiatal hernia. 9. Trace bilateral pleural effusions. 10. Urinary bladder wall thickening which could be due to nondistention versus inflammation/infection. Please correlate with clinical and urinalysis data. 11. Stable left adrenal nodule. 12. Findings telephoned to Dr. Sudheer Alva on 08/13/2016 at 1337 hrs. Dictated by: April Serrano MD, PhD on 08/13/2016 at 13:43 Approved by: April Serrano MD, PhD on 08/13/2016 at 13:43 CT BRAIN IMPRESSION: No definite, acute intracranial abnormality is seen. If there is strong clinical suspicion for an acute stroke, please consider an MRI for further evaluation, as it is more sensitive (assuming that there is no contraindication to MRI). Note is made of age-appropriate brain parenchymal volume loss and chronic small vessel ischemic changes. Dictated by: Olayinka Thurman M.D. on 08/13/2016 at 12:14 Approved by: Olayinka Thurman M.D. on 08/13/2016 at 12:[address] IMPRESSION: 1. Minimal to mild bilateral pleural effusions a superimposed consolidations, demonstrating a small degree of interval progression compared to prior exam. Superimposed consolidation could represent interval atelectasis and/or development of pneumonia. 2. Persistent appearance of diffuse wall thickening throughout the colon extending into the terminal ileum. As noted above, there is mild improvement within the descending and transverse colon with a relatively stable appearance of the sigmoid colon. Findings could be related to infectious/inflammatory, ischemic or neoplastic etiologies. 3. Unchanged appearance of appendiceal enlargement, suspected to be secondary to reactive colitis. 4. Minimal dependent pelvic fluid, decreased compared to prior exam. Dictated by: Fannie Tabares M.D. on 08/18/2016 at 13:41 Approved by: Fannie Tabares M.D. on 08/18/2016 at 13:41 Other Diagnostics AB DateTimeAnalyzed 05:40:00 -_ pH ____7.474 - 7.350 7.450 pCO2 ___49.6__ -mmHg 35.0 45.0 pO2 ___69.8__ -mmHg 69.0 116 HCO3- ___36.0__ -mmol/L 22.0 26.0 ENDOSCOPY IMPRESSIONS: 1. Schatzki ring. 2. Large hiatal hernia from 32-40 cm from the incisors. 3. Mild nonerosive gastritis. ENDOSCOPY PATH REPORT FINAL DIAGNOSIS: 1.STOMACH, ANTRUM, BIOPSY: ANTRAL MUCOSA WITH NO SIGNIFICANT DIAGNOSTIC ABNORMALITY. Negative for Helicobacter pylori organisms. Negative for intestinal metaplasia. Negative for dysplasia and malignancy. 2.STOMACH, BODY, BIOPSY: BODY-TYPE MUCOSA WITH NO DIAGNOSTIC ABNORMALITY. Negative for Helicobacter pylori organisms. Negative for intestinal metaplasia. Negative for dysplasia and malignancy. Electronically Signed Out Meeta Nolen MD [facility] [address], [place] [address] Technical component performed at [facility], [address], [place], [address] Brief History Copied from H&P "Patient is a 71 year old female with a history of hypertension, CHF, COPD, mitral valve regurgitation, GERD for 20 years, and heavy alcohol abuse since age of 22 who presents with abdominal pain, bloody diarrhea and melena, nausea, and vomiting. Patient states that she has had these symptoms along with left upper/lower abdominal pain for the past 4 years, intermittent, worse with food. She now complains of worsening left sided abdominal pain, worsening diarrhea, and worsening nausea and vomiting. About 4 days ago, she began to have red blood in her diarrhea, which quickly converted to "pitch black stool", per her . She has been having progressively worsening weakness over the last several days, eventually unable to walk. She has not been eating for the past few days and has been too weak to get alcohol, so has not drank since last Saturday, per her family. Her mental status is currently altered and she is poorly verbal, so history was provided mostly by her family. Patient had a CT abdomen and pelvis with contrast on 06/25/16 which showed diffuse thickening throughout the entire colon along with a possible colonic vesicular fistula. She saw Dr. Taveras in clinic on 08/07/16, who ordered multiple studies. Celiac panel and IgA were normal, Chromogramin A was elevated at 30 ( normal 0-5). Multiple imaging studies and an upper/lower endoscopy were also scheduled, but she presented to the ER before these were completed. Family denies NSAID use or Tylenol use, though she takes [place]. Last colonoscopy was 1- 2 years ago, which showed polyps. No history of colon cancer, celiac disease, Crohn's, or UC. On admission, O2 was 93 on 2L NC. WBC 3.5, K 2, Cl 82, CO2 43. Total bilirubin was 1.6, AST 200, ALT 92, alk phos 290, albumin 2.6, lipase 16. Lactic acid 1.7. Salicylates, APAP, EtOH all normal. CT abdomen/pelvis showed circumferential wall thickening involving the colon and ileum, as well as enlarged appendix, panniculitis, hepatic steatosis, moderate hiatal hernia, and urinary bladder wall thickening." Hospital Course 71-year-old female with past medical history of CHF, COPD, mitral regurgitation , GERD, heavy alcohol abuse (last drink one week prior to admission),admitted for treatment of ongoing diarrhea blood diarrhea, melena, nausea, vomiting, new onset hypokalemia and new onset hepatitis. 1. Suspected acute UTI on admission, ruled out with negative urine culture 2. C. Diff Colitis, acute, present on admission, ongoing - Pt presented with "pitch black stools" after a brief episode of red stool. - CT suggestive of acute colitis. - Stool PCR positive for C.Diff - Continue oral Vancomycin 6 more days - Continue PO Flagyl for four more days - appreciate GI consult. will f/u w/ recs - GI recommends follow up as outpatient for lower endoscopy once infection has resolved 3. Altered mentation, acute, present on admission. Resolved - Ammonia at admission 45 - MRI brain no signs of Werneckii's encephalopathy - Continued IV thiamine 500 mg TID for two days then 250 mg once daily. stop on 08/20/16 4. Alcoholic hepatitis, acute on chronic, present on admission - T bili, AST, ALT, alk phos all elevated, likely secondary to alcohol. Bilirubin elevated but pt is s/p cholecystectomy, so likely due to hepatic insult. Discriminant function score 0.6, - Abdominal US ordered, no signs of cirrhosis - hepatitis panel, negative 5. History of alcohol abuse, present on admission. - Pt has history of substantial alcohol abuse, reportedly drinking 1/2 gallon of vodka every 1-2 days for several years. Last drink was last Saturday due to poor oral intake and severe weakness. EtOH negative on admission. - Likely presenting with symptoms of Wernekinck encephalitis vs Hepatic encephalopathy - Monitor for signs of withdrawal. - PRN Ativan 1 mg IV for tremors/agitation 6. Acute Hypokalemia, present on admission. Resolved - Likely etiology due to diarrhea causing metabolic alkalosis. - f/u 7. Metabolic alkalosis, acute, present on admission. Resolved - f/u 8.Elevated TSH, history of hypothyroidism, chronic, present on admission - TSH high, Free T4 low - c/w Levothyroxine PO 9. Possible colovesicular fistula, present on admission, - CT abd/pelvis shows possible colovesicular fistula, with thickened bladder wall. Suspicious for Crohn's disease vs chronic colonic inflammation. - Patient will likely need follow up as outpatient, to monitor this 10. Acute upper GI bleed, present on admission, ruled out - Pt presents with "pitch black stools" after a brief episode of red stool. Given her history of GERD, peptic ulcer disease is possible. CT abdomen and pelvis with contrast on 06/25/16 which showed diffuse thickening throughout the ileum and entire colon along with a possible colonic vesicular fistula. Given the presence of possible fistula, consider Crohn's. Hb is normal at this time. Celiac panel was negative. - Upper endoscopy negative for acute bleed. - c/w treatment as noted above 11. diastolic chf ( echo 2015 EF 60-65%), stable. - Continue to monitor volume status 12. Moderate-severe mitral regurgitation. stable 13. HTN, chronic. stable 14. hyperlipidemia, stable 15. CAD (cardiac cath 2013). stable. 16. atrial fibrillation, chronic. stable. 17. asthma, stable. 18. copd, 19 Depression and anxiety 20. smoker - Nicotine patch ordered 21. hiatal hernia, gerd, colon polyps 22. dysphagia - needs smaller pills on discharge 23. nocturnal hypoxia s/p home O2 script by PCP 06/2016 Exam Vital Signs (Last) Date Time Temp Pulse Resp B/P Pulse Ox O2 Delivery O2 Flow Rate FiO2 08/20/16 13:13 83 26 94 Room Air 08/20/16 12:13 36.7 131/94 08/19/16 07:49 2.00 Exam General: Alert to person and place and time, mentation significantly improved from yesterday, Cooperative, Appears severely fatigued and chronically ill. Head: Normocephalic, atraumatic. External ears normal. Eyes: PERRLA, EOMI. Anicteric sclerae. Negative for Nystagmus. Mouth: Mouth Normal, Mucous Membranes Dry Chest & Lungs: Clear to auscultation bilaterally with no crackles, wheezes, or rhonchi. Cardiovascular: Regular Rate/Rhythm, Normal S1, Normal S2, No Murmurs/Rubs/ Gallops Abdomen: LUQ/LLQ tenderness improved, Non-distended, No masses, Normoactive bowel tones, Soft Musculoskeletal: Normal Range of Motion Extremities: No cyanosis/clubbing/edema bilaterally. Asterixis noted on exam bilaterally. Neurological: Grossly Neurologically Intact, Speech normal Psych: Anxious affect, no reports of hallucinations overnight. Test 08/13/16 11:05 08/13/16 16:10 08/14/16 01:30 08/14/16 11:09 Lipase 16U/L (13-60) Salicylates Level < 3.0ug/mL (30-250) Acetaminophen Level < 15.0ug/mL Rx (10-25) Alcohol, Quantitative < 10mg/dL (0-10) Hepatitis A IgM Antibody Negative (Negative) Hepatitis B Surface Antigen Negative (Negative) Hepatitis B Core IgM Antibody Negative (Negative) Hepatitis C Antibody <0.1s/co ratio (0.0-0.9) Hepatitis C Comment Comment (.) Urine Ictotest Positive (Negative) Thyroid Stimulating Hormone (TSH) 59.580uIU/mL (0.450-4.500) Free Thyroxine 0.35ng/dL (0.82-1.77) Thyroxine (T4) 2.5ug/dL (4.7-13.3) Free Triiodothyronine <0.4pg/mL (2.0-4.4) Triiodothyronine (T3) Uptake 24% (24-39) Test 08/15/16 02:47 08/15/16 07:16 08/15/16 15:28 08/16/16 02:25 Lactic Acid Level 1.8mmol/L (0.4-2.0) Vitamin B12 Level 1513pg/mL (211-946) Procalcitonin 0.16ng/mL (See Comment) Cortisol 16.4ug/dL (.) Ammonia 46ug/dL (18-53) Activated Partial Thromboplast Time 25.5sec (22.8-33.0) Test 08/16/16 12:15 08/17/16 03:55 08/18/16 04:30 08/18/16 17:52 Pro-B-Type Natriuretic Peptide 420.4pg/mL (0-301) Total Bilirubin 0.9mg/dL (0.0-1.2) Aspartate Amino Transf (AST/SGOT) 116U/L (0-50) Alanine Aminotransferase (ALT/SGPT) 62U/L (0-32) Alkaline Phosphatase 249U/L (25-165) Total Protein 4.4g/dL (6.4-8.4) Albumin 2.1g/dL (3.4-5.0) Neutrophils (%) (Auto) 58.3% (40-74) Lymphocytes (%) (Auto) 17.4% (14-46) Monocytes (%) (Auto) 21.6% (4-12) Eosinophils (%) (Auto) 1.1% (0-5) Basophils (%) (Auto) 1.1% (0-3) Magnesium Level 1.7mg/dL (1.6-2.6) Urine Color Yellow (YELLOW) Urine Appearance Cloudy (CLEAR,HAZY) Urine pH 8.5 (5.0-8.0) Urine Specific [place] 1.010 (1.003-1.035) Urine Protein 30mg/dL (NEG,TRACE) Urine Glucose (UA) Negativemg/dL (NEGATIVE) Urine Ketones Negativemg/dL (NEGATIVE) Urine Occult Blood Large (NEGATIVE) Urine Nitrite Negative (NEGATIVE) Urine Bilirubin Negative (NEGATIVE) Urine Urobilinogen Normalmg/dL (NORMAL) Urine Leukocyte Esterase Negative (NEGATIVE) Urine RBC >50/hpf (0-2) Urine WBC 0-5/hpf (0-5) Urine Epithelial Cells Occasional/hpf (NONE-MOD) Urine Crystals None seen (NONE SEEN) Urine Bacteria None/hpf (NONE-FEW) Urine Hyaline Casts None/lpf (NONE) Urine Granular Casts None seen (NONE SEEN) Urine Waxy Casts None seen (NONE SEEN) Urine Red Blood Cell Casts None seen (NONE SEEN) Urine White Blood Cell Casts None seen (NONE SEEN) Urine Mucus None seen (None Seen) Urine Trichomonas None seen (NONE SEEN) Urine Yeast None (NONE SEEN) Urinalysis Comment None Urine Culture Reflexed Not indicated Test 08/19/16 02:35 08/20/16 04:30 Sodium Level 140mEq/L (134-144) Potassium Level 4.3mEq/L (3.5-5.2) Chloride Level 103mEq/L (97-108) Carbon Dioxide Level 28mmol/L (18-29) Blood Urea Nitrogen 6mg/dL (8-27) Creatinine 0.85mg/dL (0.57-1.00) Estimat Glomerular Filtration Rate 95mL/min (>59) Glucose Level 80mg/dL (60-99) Calcium Level 7.6mg/dL (8.5-10.1) White Blood Count 4.4th/mm3 (3.8-10.1) Red Blood Count 3.26mil/mm3 (3.90-5.20) Hemoglobin 10.7g/dL (12.0-15.6) Hematocrit 29.6% (35.0-46.0) Mean Corpuscular Volume 90.8fL (81-100) Mean Corpuscular Hemoglobin 32.8pg (27.0-35.0) Mean Corpuscular Hemoglobin Concent 36.1% (32.0-37.0) Red Cell Distribution Width 23.9% (12.3-15.4) Platelet Count 177bil/L (150-400) Prothrombin Time 10.8sec (8.1-12.5) Prothromb Time International Ratio 1.01ratio Microbiology Results C DIFF TOXIN A AND B BY PCR Final 08/13/16-1837 Organism 1 POS FOR CDIF TOXIN C DIF TOXIN A&B PCR DETECTED TIME CALLED: 1835 DATE CALLED: 08/13/16 FLOOR/DOCTOR: CEC[facility]/MIGUEL ÁNGEL [place] CALLED BY: CARMELO PCR testing alone cannot distinquish C. difficile disease from a carrier state, and therefore correlation with clinical findings is required. Discharge Medications Discharge Medications Metronidazole (Flagyl) 500 Mg Tablet 500 MG PO Q8 Prescribed by: RAGINI MANUEL DO Potassium Chloride ER (Potassium Chloride ER) 10 Meq Tablet 10 MEQ PO BID ( Reported) Vit#96/Ferrous Fum/FA ( Tablet) 1 Each Tablet 1 TABLET PO DAILY Prescribed by: RAGINI MANUEL DO Vancomycin (Vancomycin) 250 Mg Capsule 250 MG PO Q6 Prescribed by: RAGINI MANUEL DO As needed Albuterol Sulfate (Ventolin HFA Inhaler) 200 Puff/18 Gm Inhaler 2 PUFF INH Q4-6 HRS PRN PRN PRN For Wheezing (Reported) Alprazolam (Alprazolam) 0.5 Mg Tablet 0.5 MG PO BID PRN PRN For Anxiety ( Reported) Arformoterol Tartrate (Brovana) 15 Mcg/2 Ml Vial.neb 15 MCG IH BID PRN PRN For Shortness of Breath (Reported) Budesonide (Budesonide) 1 Mg/2 Ml Ampul.neb 1 MG IH DAILY PRN PRN For Shortness of Breath (Reported) Hydrocodone-Acetaminophen 5-325 mg (Hydrocodone-Acetaminophen 5-325 mg) 1 Each Tablet 1 TABLET PO BID PRN PRN For Pain (Reported) Hydrocodone-Acetaminophen 5-325 mg (Hydrocodone-Acetaminophen 5-325 mg) 1 Each Tablet 1 TABLET PO Q4H PRN PRN For Pain Prescribed by: RAGINI MANUEL, Ipratropium [place] (Atrovent HFA) 200 Puff/12.9 Gm Inhaler 2 PUFF INH QID PRN PRN For Shortness of Breath (Reported) Loperamide/Simethicone (Imodium Multi-Symptom Rel Cplt) 1 Each Tablet 1 EACH PO PRN PRN PRN For Diarrhea or Loose Stool (Reported) Followup Plan Follow-up plan as above Discharge Diet: Heart Healthy Discharge Activity: Limited until seen by PCP, Home Health Phyical Therapy Patient Instructions Discharge to shelter Please follow up with your Primary Doctor within one week of discharge from SNF You will need a colonoscopy once the infection has resolved, make arrangements to have this done as outpatient. Continue Vancomycin 250 mg by mouth daily for 7 more days Rx given Continue Flagyl 500 mg by mouth daily for four days Continue vitamin by mouth daily Lorazepam 1 mg PRn anxiety Levothyroxine 50 mcg PO daily Pulmcort one puff BID PRN SOB Zofran 20 mg PO once daily PRN nausea Albuterol 1-2 puff PRN SOB Nicotine patch 21 mg daily Continue home medications Continue daily PT physical therapy exercise, with goal of accomplishing ADLs If you have questions about alcohol abstinence programs please call us at any time for more information. If you experience worsening symptoms please call your PCP sooner and seek urgent medical care Follow-up Provider: Davin Galan MD Follow-up with PCP in: 1 week Time spent Greater than 30 minutes was spent in preparation of discharge with greater than 50% of that time dedicated to patient counseling and coordination of care. . Attending Statement The patient was seen and examined together with Dr. Manuel on 08/20/2016 and I agree with the history, exam and plan as outlined in the note above. . copies to: Davin Galan MD, AARON J DO Aug 20, 2016 19:03 Burt Pearl MD Aug 21, 2016 15:59
[2016-08-22 15:07] LABS: Aldosterone/Renin Ratio <.9 (0.0-30.0); Renin Activity 1.17 ng/mL/hr (.)
== END 2016-08-20 15:31 | DRG 371 ==
LOC: SED 10:58 → PCC 13:46
PROVIDERS: ADMIT Hospitalist; ATTEND Urology
PROC: 0DB68ZX Excision of Stomach, Via Natural or Artificial Opening Endoscopic, Diagnostic (ICD-10-PCS; 2016-08-14)
PROC: 4A033R1 Measurement of Arterial Saturation, Peripheral, Percutaneous Approach (ICD-10-PCS; principal; 2016-08-14 16:00)
DX: A04.7 Enterocolitis due to Clostridium difficile (principal); G93.40 Encephalopathy, unspecified; I50.30 Unspecified diastolic (congestive) heart failure; K63.2 Fistula of intestine; N32.1 Vesicointestinal fistula; E87.3 Alkalosis; F10.239 Alcohol dependence with withdrawal, unspecified; Z91.14 Patient's other noncompliance with medication regimen; F17.210 Nicotine dependence, cigarettes, uncomplicated; L30.4 Erythema intertrigo; E87.6 Hypokalemia; I10 Essential (primary) hypertension; J44.9 Chronic obstructive pulmonary disease, unspecified; I34.0 Nonrheumatic mitral (valve) insufficiency; K21.9 Gastro-esophageal reflux disease without esophagitis; E03.9 Hypothyroidism, unspecified; E78.5 Hyperlipidemia, unspecified; K22.2 Esophageal obstruction; K44.9 Diaphragmatic hernia without obstruction or gangrene; K29.60 Other gastritis without bleeding; K70.10 Alcoholic hepatitis without ascites

== ENCOUNTER 2016-09-12 17:09 | Inpatient (IN) | payer MEDICARE ==
[~2016-09-12] VITALS: Ht 156.8 cm; Wt 81.5 kg
[~2016-09-12 17:09] MED LIST changes: -AMLO5TAB2 PO; -CHOL40003 PO; -CYCL5TAB PO; -FLUT16SP NS; -FURO-128 PO; -LEVO200T6 PO; -LISI-567 PO; -MAGN400T4 PO; -METO25TA6 PO; +METR500T PO; -OLAN2.5T20 PO; -ONDA4TAB9 PO; -OXYC5TAB72 PO; -POLY17PO6 PO; -POTA-62 PO; +POTA10TA12 PO; +PREN1TAB25 PO; -RNT300T PO; -TRAZ-118 PO; +VANC250C3 PO; -VENL37.57 PO
[2016-09-12 17:28] VITALS: BP 171/115; PULSE 131; RESP 30; O2SAT 91
[2016-09-12 17:35] LABS: Mean Corpuscular Volume 99.3 fL (81-100)
[2016-09-12 17:39] LABS: BASOPHILS % (AUTO) 0.5 % (0-3); EOSINOPHILS % (AUTO) 0.2 % (0-5); MONOCYTES % (AUTO) 9.5 % (4-12); Mean Corpuscular Hemoglobin 33.7 pg (27.0-35.0); Platelet Count 257 bil/L (150-400)
[2016-09-12 17:57] LABS: APPEARANCE,URINE CLOUDY (CLEAR,HAZY); COLOR,URINE YELLOW (YELLOW); PH,URINE 8.5 (5.0-8.0)
[2016-09-12 17:58] LABS: OCCULT BLOOD,URINE MODERATE (NEGATIVE); UROBILINOGEN,URINE NORMAL (NORMAL)
--- NOTE | 2016-09-12 18:03 | DRSVH ---
PROCEDURE: X-RAY CHEST ONE VIEW, PORTABLE ([id number]) INDICATIONS: SHORTNESS OF BREATH TECHNIQUE: One view of the chest was acquired. COMPARISON: [facility], CR, XR CHEST 1VW (PORTABLE), 05/22/2016, 19:51. [facility], CR, XR CHEST 1VW (PORTABLE), 08/13/2016, 12:39. FINDINGS: Surgical changes and devices: None. Lungs and pleura: The defined opacities in the right perihilar region and left lower lobe consistent with pneumonia. No pleural effusions or pneumothorax. Lungs are clear. Mediastinum: Mediastinal contours appear normal. Heart size is normal. Bones and chest wall: No suspicious bony lesions. Overlying soft tissues appear unremarkable. IMPRESSION: Right perihilar and left lower lobe pneumonia. Recommend followup to resolution. Dictated by: Abbi Leigh M.D. on 09/12/2016 at 18:00 Approved by: Abbi Leigh M.D. on 09/12/2016 at 18:02
[2016-09-12 18:13] LABS: TROPONIN T 0.108 ug/L (0.0-0.011)
--- NOTE | 2016-09-12 18:21 | ED.REPORT ---
HPI-Chest Pain 40 and Over Date of Service Sep 12, 2016 ED Provider: Earle Aviles MD A 71 year old female with a medical history including CHF, CAD, hypertension, asthma, atrial fibrillation, COPD, and recent C.Diff infection presents to the ED via EMS with shortness of breath onset yesterday. Associated symptoms include left-sided abdominal pain, intermittent left-sided chest pain, lower extremity swelling, and productive cough with clear sputum. She recently finished a course of Vancomycin and Flagyl after being hospitalized from 08/13- with a C.Diff infection and alcohol withdrawal. Nursing Notes Stated Complaint: CHEST PAIN Chief Complaint: Respiratory Distress Allergies: Coded Allergies: Penicillins (Verified Allergy, Severe, ANAPHYLAXIS, 08/13/16) bupropion (Verified Allergy, Intermediate, NAUSEA, 08/13/16) fluoxetine (Verified Allergy, Unknown, 08/13/16) sulfasalazine (Verified Allergy, Unknown, UNKNOWN, 08/13/16) Uncoded Allergies: FLU VACCINE (Adverse Reaction, Severe, NAUSEA/ VOMITTING, 01/24/16) Scheduled Metronidazole (Flagyl) 500 Mg Tablet 500 MG PO Q8 Potassium Chloride ER (Potassium Chloride ER) 10 Meq Tablet 10 MEQ PO BID Vit#96/Ferrous Fum/FA ( Tablet) 1 Each Tablet 1 TABLET PO DAILY Vancomycin (Vancomycin) 250 Mg Capsule 250 MG PO Q6 Scheduled PRN Albuterol Sulfate (Ventolin HFA Inhaler) 200 Puff/18 Gm Inhaler 2 PUFF INH Q4-6 HRS PRN PRN PRN For Wheezing Alprazolam (Alprazolam) 0.5 Mg Tablet 0.5 MG PO BID PRN PRN For Anxiety Arformoterol Tartrate (Brovana) 15 Mcg/2 Ml Vial.neb 15 MCG IH BID PRN PRN For Shortness of Breath Budesonide (Budesonide) 1 Mg/2 Ml Ampul.neb 1 MG IH DAILY PRN PRN For Shortness of Breath Hydrocodone-Acetaminophen 5-325 mg (Hydrocodone-Acetaminophen 5-325 mg) 1 Each Tablet 1 TABLET PO BID PRN PRN For Pain Hydrocodone-Acetaminophen 5-325 mg (Hydrocodone-Acetaminophen 5-325 mg) 1 Each Tablet 1 TABLET PO Q4H PRN PRN For Pain Ipratropium [place] (Atrovent HFA) 200 Puff/12.9 Gm Inhaler 2 PUFF INH QID PRN PRN For Shortness of Breath Loperamide/Simethicone (Imodium Multi-Symptom Rel Cplt) 1 Each Tablet 1 EACH PO PRN PRN PRN For Diarrhea or Loose Stool General Time Seen by MD: 18:18 Chief Complaint Shortness of breath Hx Obtained From: Patient Arrived By: Ambulance Sudden in Onset?: No Onset Occurred: Yesterday Symptom Duration: Since onset Location: : Chest left (and Abdomen left) Quality: Painful Severity: Current: Moderate Severity: Maximum: Moderate Associated with: Reports: Cough, productive, Denies: Fever Pertinent Negative: Relieved by nothing Context Related History: Reports: Acute coronary syndrome, Congestive heart failure, Hypertension Recent Healthcare: Recent hospitalization Past Medical History Past Medical History Notes: PCP: Dr. Galan GI: Dr. Taveras Seen in emergency department 06/25/2016 for arellano-colitis (scheduled for 1 month from now?) Admit January 2015 for respiratory failure Past Medical History Moderate-sever mitral valve regurgitation, cardiac cath 02/2014 with normal coronaries. Echo 01/2015 LVEF 40-45% severe MR. Hiatal hernia Cardiomegaly Hypothyroidism Arellano Colitis 05/2016 Diverticulosis Chronic insomnia Colon polyps Pneumonia Depression Anxiety Reports: Asthma, COPD, Congestive heart failure (Diastolic - echo 10/2015 EF 60- 65%), Coronary artery disease, GERD, Hyperlipidemia, Hypertension Reports: Atrial fibrillation, Urinary tract infection Past Surgical History Right knee surgery in 1966 Cardiac cath 2011, 2013 Hysterectomy in 2003 Reports: Cholecystectomy Smoking History Current Every Day Smoker Social History Lives with Alcohol Use: 3-5 per day Drug Use: Denies drug use, Other Other Social History: Good social support, Ambulatory Status Independent Review of Systems Constitutional: Denies: Fever Respiratory: Reports: Prod cough, clear, Shortness of breath Cardiovascular: Reports: Chest pain (Left-sided) GI: Reports: Abdominal pain (Left-sided) Musculoskeletal: Reports: Extremity swelling (Legs bilaterally) Complete sys rev & neg: except as marked. Physical Exam Initial Vital Signs Vital Signs (First) Date Time Temp Pulse Resp B/P Pulse Ox O2 Delivery O2 Flow Rate FiO2 09/12/16 17:28 36.9 131 30 171/115 91 Room Air 09/12/16 19:24 3 Initial VS: Reviewed Head / Eyes: Atraumatic, Normocephalic ENT: Conjunctiva normal, No scleral icterus Skin: Warm, Dry Neurologic: Alert, Oriented, Nonfocal Psychiatric: Mood/affect normal, Behavior normal, Normal thought content General/Constitutional: Awake, Alert Respiratory / Chest: No respiratory distress Wheezing / Retractions: Positive: Wheezing moderate (Bilateral) Right-sided crackles Cardiovascular: Regular rhythm, Heart sounds NL, No gallop, No murmurs, No rubs Heart Rate / Rhythm: Positive: Tachycardia Abdomen: Soft Tenderness/Guarding/Rebound: Positive: Tender LLQ... Bowel Sounds / Distention: Positive: Bowel sounds hyperactive Interpretation & Diagnostics Lab Results Interpretation Result Diagram: 09/12/16 1705 09/12/16 1705 Test 09/12/16 17:05 09/12/16 17:40 White Blood Count 6.4th/mm3 (3.8-10.1) Red Blood Count 2.94mil/mm3 (3.90-5.20) Hemoglobin 9.9g/dL (12.0-15.6) Hematocrit 29.2% (35.0-46.0) Mean Corpuscular Volume 99.3fL (81-100) Mean Corpuscular Hemoglobin 33.7pg (27.0-35.0) Mean Corpuscular Hemoglobin Concent 33.9% (32.0-37.0) Red Cell Distribution Width 20.8% (12.3-15.4) Platelet Count 257bil/L (150-400) Neutrophils (%) (Auto) 82.0% (40-74) Lymphocytes (%) (Auto) 7.8% (14-46) Monocytes (%) (Auto) 9.5% (4-12) Eosinophils (%) (Auto) 0.2% (0-5) Basophils (%) (Auto) 0.5% (0-3) Urine Color Yellow (YELLOW) Urine Appearance Cloudy (CLEAR,HAZY) Urine pH 8.5 (5.0-8.0) Urine Specific [place] 1.010 (1.003-1.035) Urine Protein Negativemg/dL (NEG,TRACE) Urine Glucose (UA) Negativemg/dL (NEGATIVE) Urine Ketones Negativemg/dL (NEGATIVE) Urine Occult Blood Moderate (NEGATIVE) Urine Nitrite Negative (NEGATIVE) Urine Bilirubin Negative (NEGATIVE) Urine Urobilinogen Normalmg/dL (NORMAL) Urine Leukocyte Esterase Negative (NEGATIVE) Urine RBC 3-10/hpf (0-2) Urine WBC 0-5/hpf (0-5) Urine Epithelial Cells Few/hpf (NONE-MOD) Urine Crystals None seen (NONE SEEN) Urine Bacteria Few/hpf (NONE-FEW) Urine Hyaline Casts None/lpf (NONE) Urine Granular Casts None seen (NONE SEEN) Urine Waxy Casts None seen (NONE SEEN) Urine Red Blood Cell Casts None seen (NONE SEEN) Urine White Blood Cell Casts None seen (NONE SEEN) Urine Mucus None seen (None Seen) Urine Trichomonas None seen (NONE SEEN) Urine Yeast None (NONE SEEN) Urinalysis Comment None Urine Culture Reflexed Not indicated Sodium Level 140mEq/L (134-144) Potassium Level 3.9mEq/L (3.5-5.2) Chloride Level 96mEq/L (97-108) Carbon Dioxide Level 28mmol/L (18-29) Blood Urea Nitrogen 11mg/dL (8-27) Creatinine 0.78mg/dL (0.57-1.00) Estimat Glomerular Filtration Rate 105mL/min (>59) Glucose Level 86mg/dL (60-99) Calcium Level 9.3mg/dL (8.5-10.1) Total Bilirubin 0.3mg/dL (0.0-1.2) Aspartate Amino Transf (AST/SGOT) 28U/L (0-50) Alanine Aminotransferase (ALT/SGPT) 17U/L (0-32) Alkaline Phosphatase 189U/L (25-165) Pro-B-Type Natriuretic Peptide 5070pg/mL (0-301) Total Protein 6.0g/dL (6.4-8.4) Albumin 3.0g/dL (3.4-5.0) Procalcitonin 0.14ng/mL (0.00-0.08) Hold Purple Top Tube Received (Received) D-Dimer < 0.5mg/L (<0.50) Hold Blue Top Tube Received (Received) Hold Red Top Tube Received (Received) Hold [place] Top Tube Received (Received) Hold [place] Top Tube Received (Received) ECG Interpretation ECG Interpretation: Sinus or ectopic atrial tachycardia rate 127 Atrial premature complex Inferior infarct, old Lateral leads are also involved Time: 17:45 Interpreted by: ED physician ECG Interpretation: Sinus tachycardia rate 114 No acute ischemic changes Time: 20:25 Interpreted by: ED physician X-Ray Chest Interpretation Chest Xray Interpretation: IMPRESSION: Right perihilar and left lower lobe pneumonia. Recommend followup to resolution. Dictated by: Abbi Leigh M.D. on 09/12/2016 at 18:00 View: Portable, 1 view Interpretation / Wet Read by: Interpret - Radiologist Re-Eval/Medical Decision Med Decision/Clinical Course 71-year-old female with dyspnea, hypoxemia infiltrate on chest x-ray and elevated lactate. Also is tachycardic on arrival. Cultures were obtained, she was given normal saline 1 L in 2 separate boluses. Vanco, Levaquin and cefepime for healthcare associated pneumonia. Will admit to the hospitalist service. Time of Eval: 19:15 Patient Status: Condition unchanged Re-Evaluation/Progress Note: Patient is still nauseous and short of breath. Discussed with patient x-ray and lab results, diagnosis, and plan for admit. Patient agrees with plan for care and all questions were addressed. Discussed code status with patient in the presence of her . Patient is FULL CODE. Consultation : Referral / Consult Name: Mely Olivera MD Consulted With: Hospitalist Call Returned at: 19:54 Head Of Science: Agrees with eval, Agrees with plan, Accepts admit Counseled Regarding: Diagnosis, Lab results, Need for admission Discharge & Departure Primary Impression: Healthcare-associated pneumonia Additional Impressions: Sepsis Sepsis type: sepsis due to unspecified organism Qualified Code: A41.9 - Sepsis, unspecified organism Elevated troponin Disposition: ADMITTED TO HOSPITAL Discharge Condition All VS Reviewed: Yes Condition: Stable Referrals: Davin Galan MD (PCP) Scribe Attestation Portions of this note were transcribed by Elaina Min. I, Dr. Aviles, personally performed the history, physical exam, and medical decision-making; I reviewed and confirmed the accuracy of the information in the transcribed note. Signed by: Claire Kruse, 09/12/2016, 21:24 copies to: Davin Galan MD, Donald L MD Sep 12, 2016 18:20 ELAINA MIN Sep 12, 2016 18:35
[2016-09-12] MEDS ORDERED: levoFLOXacin Inj 750 MG in IV Premix 1 EACH IV ONE (18:35)
[2016-09-12] MEDS ORDERED: Vancomycin Inj 1,000 MG in IV Premix 1 EACH IV ONE (18:35)
[2016-09-12] MEDS ORDERED: Cefepime Inj 2 GM in IV Premix 1 EACH IV ONE (18:35)
[2016-09-12] MEDS: HYDROmorphone 0.5 mg/0.5 mL iSecure Syringe IVPUSH PRN ×3 (18:52→21:20)
[2016-09-12] MEDS ORDERED: Ondansetron 2 mg/mL 2 mL Inj IVPUSH PRN (19:15)
[2016-09-12] MEDS ORDERED: 0.9% Sodium Chloride 500 ML IV ONE ×2 (19:15→20:20)
[2016-09-12] MEDS ORDERED: Albuterol-Ipratropium 3 mL Inhalation Solution NEB ONE (19:20)
[2016-09-12 19:24] VITALS: PULSE 141; RESP 26; O2SAT 92
[2016-09-12 19:30] VITALS: BP 165/105; PULSE 141; RESP 24
[2016-09-12] MEDS: Ondansetron 2 mg/mL 2 mL Inj IVPUSH PRN (20:00)
[2016-09-12 20:33] VITALS: PULSE 121; RESP 24
[2016-09-12] MEDS ORDERED: Alum-Mag Hydrox-Simeth 30 mL Suspension PO PRN ×2 (21:10→21:35)
[2016-09-12] MEDS ORDERED: Polyethylene Glycol (PEG) 17 Gm Powder PO PRN (21:35)
[2016-09-12 21:47] VITALS: BP 135/92; PULSE 136; O2SAT 92
[2016-09-12 22:15] VITALS: BP 145/107; PULSE 145; RESP 20; O2SAT 90
[2016-09-12] MEDS ORDERED: 0.9% Sodium Chloride 250 ML ONE (22:17)
[2016-09-12] MEDS: HYDROcodone-APAP 5-325 mg Tablet PO PRN (23:07)
--- NOTE | 2016-09-12 23:55 | PCM.HPMED ---
Subjective Date of Service Sep 12, 2016 Primary Provider: Admitting Physician: Mely Olivera MD Primary Care Physician: Davin Galan MD Attending Physician: Mely Olivera MD Chief Complaint: Shortness of breath History of Present Illness: Patient is a 71-year-old female with CAD, hypertension, COPD and systolic CHF presenting with shortness of breath. Patient is accompanied by her at bedside. Of note, the patient recently completed rehabilitation at [facility] on 09/03/2016 following hospitalization for C. diff colitis. Patient reports onset of shortness of breath one day ago, which was worse today prompting her to be brought to [facility] ED for further evaluation. Patient reports associated wheezing and productive cough of clear sputum. She also reports chronic chest pain, abdominal pain and lower extremity swelling. She states her lower extremity swelling is actually improved compared to her usual baseline. Patient otherwise denies fever, chills, emesis, dysuria. Chest x-ray in the ED shows right perihilar and left lower lobe pneumonia. Patient was started on vancomycin , levofloxacin and cefepime for presumed HCAP in the ED. In the ED, vitals: 36.9, HR 131, RR 30 satting 91% on room air, BP 171/115. Notable labs: lactic acid 2.4, troponin 0.108, Pro-BNP 5070, d-dimer<0.5. Review of Systems: A comprehensive review of systems was conducted with the patient and found to be negative except as above in the History of Present Illness. Allergies Coded Allergies: Penicillins (Verified Allergy, Severe, ANAPHYLAXIS, 08/13/16) bupropion (Verified Allergy, Intermediate, NAUSEA, 08/13/16) fluoxetine (Verified Allergy, Unknown, 08/13/16) sulfasalazine (Verified Allergy, Unknown, UNKNOWN, 08/13/16) Uncoded Allergies: FLU VACCINE (Adverse Reaction, Severe, NAUSEA/ VOMITTING, 01/24/16) Home Medications Medication list needs to be reconciled with medication list at discharge from [facility]. Levothyroxine 100mcg daily KCl 20mEq daily Sertraline 50mg daily Prilosec 40mg daily Ranitidine 150mg daily PMH Mitral regurgitation Hypothyroidism Hypertension Hyperlipidemia Diverticulosis GERD COPD Systolic CHF Chronic insomnia Hiatal hernia . 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 No acute distress, well-developed, well -nourished, appropriately interactive HEENT: Normocephalic, atraumatic. External ears without defect. Pupils equal, round, and reactive to light. Anicteric sclerae, moist conjunctivae, and no lid lag. Oropharynx free of erythema and cobble stoning with moist mucosa. Neck: Supple. No jugular venous distension. No lymphadenopathy or thyromegaly. Cardiovascular: Tachycardic. No murmurs, rubs, or gallops appreciated but difficult to appreciate with coarse lung sounds. Pulmonary: Diffuse coarse lung sounds bilaterally with end expiratory wheezes. Abdomen: Bowel tones present. Soft, nontender, nondistended. No hepatosplenomegaly or masses appreciated. Extremities: Moderate bilateral lower extremity pitting edema to mid-calves. Skin: Normal temperature, turgor, and texture; no rash, ulcers, or subcutaneous nodules appreciated. Neurological: Cranial nerves grossly intact. Psychiatric: Normal mood and affect. Alert and oriented to person, place, and time. Lab and Diagnostics Result Diagram: 09/12/16 1705 09/12/16 1705 X-Rays, CTs and MRIs Date of Service: 09/12/16 1718 PROCEDURE: X-RAY CHEST ONE VIEW, PORTABLE ([id number]) INDICATIONS: SHORTNESS OF BREATH TECHNIQUE: One view of the chest was acquired. COMPARISON: [facility], CR, XR CHEST 1VW (PORTABLE), 05/22/2016, 19 :51. [facility], CR, XR CHEST 1VW (PORTABLE), 08/13/2016, 12:39. FINDINGS: Surgical changes and devices: None. Lungs and pleura: The defined opacities in the right perihilar region and left lower lobe consistent with pneumonia. No pleural effusions or pneumothorax. Lungs are clear. Mediastinum: Mediastinal contours appear normal. Heart size is normal. Bones and chest wall: No suspicious bony lesions. Overlying soft tissues appear unremarkable. IMPRESSION: Right perihilar and left lower lobe pneumonia. Recommend followup to resolution. Dictated by: Abbi Leigh M.D. on 09/12/2016 at 18:00 Approved by: Abbi Leigh M.D. on 09/12/2016 at 18:02 Assessment & Plan Patient is a 71-year-old female with CAD, hypertension, COPD and systolic CHF presenting with shortness of breath and admitted for pneumonia. 1. Acute sepsis. Present on admission. Active -Meets criteria with HR (131), RR (30) and evidence of pulmonary source of infection -Lactic acid 2.4. IV fluids. Trend lactic acid 2. Acute dyspnea. Present on admission. Active -Etiology likely due to pneumonia but possible COPD and CHF component given elevated Pro-BNP -D-dimer<0.05 -Supplemental oxygen PRN 3. Acute bilateral pneumonia. Present on admission. Active -Presumed health care associated pneumonia given recent hospitalization, stay at [facility] and recent IV antibiotics -Chest x-ray reads perihilar and left lower lobe pneumonia -Pending studies: Respiratory virus PCR, Legionella ur ag, Strep pneumo ur ag, MRSA screen, sputum cx, blood cx -Continue vancomycin, cefepime and levofloxacin. De-escalate with results of studies and cultures 4. Elevated troponin, acute. Present on admission. Active -Troponin 0.108 -Patient has intermittent chest pain no different than usual baseline. EKG shows sinus tach HR 127 and inferior old infarct. No acute ST-elevation or depression -Less likely acute ischemia, possibly demand from sustained tachycardia -Trend troponin 5. Systolic CHF, chronic. Present on admission -Echocardiogram from 10/2015 shows estimated LV EF to be 60-65%, which was significantly improved compared to prior study -Pro-BNP elevated 5070 -Echocardiogram 6. COPD, chronic. Present on admission -DuoNeb -Albuterol PRN 7. Hypertension, chronic. Present on admission. -Follow vitals -Labetalol PRN 7. Mitral regurgitation, chronic. Present on admission -Worsening MR on last echo from 10/2015 -Echocardiogram 8. Hypothyroidism, chronic. Present on admission -Continue home dose levothyroxine 9. GERD, chronic. Present on admission -Continue home PPI, H2 raina regimen Patient Status: Patient is admitted under inpatient status with expected length of stay greater than 2 midnights due to severity of presenting symptoms, risk of adverse event, and complexity of treatment plan. VTE Prophylaxis: Sub-Q Heparin (Unfractionated) Resuscitation Status: Limited Interventions Limited Interventions: Compressions, Cardioversion/Defibrillation, BiPAP, Medications and IV Fluid Attending Statement Pt seen and examined by myself and agree with above plan. Burak Lubin DO Sep 12, 2016 22:51 Mely Olivera MD Sep 13, 2016 06:35
[2016-09-13] VITALS (13 sets, daily range): BP systolic 132–174; BP diastolic 54–129; PULSE 93–122; RESP 18–26; O2SAT 88–94
[2016-09-13] MEDS: Ondansetron 2 mg/mL 2 mL Inj IVPUSH PRN ×4 (00:08→20:33)
[2016-09-13] MEDS: Heparin 5,000 Unit/mL Inj SUBQ SCH ×3 (00:31→17:27)
--- NOTE | 2016-09-13 01:28 | PCM.CONPHA ---
Subjective Date of Service: Sep 13, 2016 Requesting Provider: Burak Lubin DO Shortness of breath Reason for Pharmacy Consult: Vancomycin Dosing Objective Vital Signs Date Time Temp Pulse Resp B/P Pulse Ox O2 Delivery O2 Flow Rate FiO2 09/13/16 00:29 36.8 108 18 134/54 93 Nasal Cannula 4.00 09/12/16 23:00 Supplement Oxygen 09/12/16 22:15 37.0 145 20 145/107 90 Nasal Cannula 3.00 09/12/16 21:48 36.9 136 24 135/92 92 Room Air 2 09/12/16 21:47 136 135/92 92 Room Air 09/12/16 20:33 121 24 09/12/16 19:30 141 24 165/105 Nasal Cannula 2 09/12/16 19:24 141 26 92 Nasal Cannula 3 09/12/16 17:28 36.9 131 30 171/115 91 Room Air Intake and Output 09/11/16 09/12/16 09/13/16 00:00 00:00 00:00 Intake Total 500 ml Balance 500 ml Weight (Kilograms): 87.600 Height (Feet): 5 Height (Inches): 1.75 Test 09/12/16 17:05 09/12/16 17:40 09/12/16 23:00 White Blood Count 6.4th/mm3 (3.8-10.1) Red Blood Count 2.94mil/mm3 (3.90-5.20) Hemoglobin 9.9g/dL (12.0-15.6) Hematocrit 29.2% (35.0-46.0) Mean Corpuscular Volume 99.3fL (81-100) Mean Corpuscular Hemoglobin 33.7pg (27.0-35.0) Mean Corpuscular Hemoglobin Concent 33.9% (32.0-37.0) Red Cell Distribution Width 20.8% (12.3-15.4) Platelet Count 257bil/L (150-400) Neutrophils (%) (Auto) 82.0% (40-74) Lymphocytes (%) (Auto) 7.8% (14-46) Monocytes (%) (Auto) 9.5% (4-12) Eosinophils (%) (Auto) 0.2% (0-5) Basophils (%) (Auto) 0.5% (0-3) Urine Color Yellow (YELLOW) Urine Appearance Cloudy (CLEAR,HAZY) Urine pH 8.5 (5.0-8.0) Urine Specific [place] 1.010 (1.003-1.035) Urine Protein Negativemg/dL (NEG,TRACE) Urine Glucose (UA) Negativemg/dL (NEGATIVE) Urine Ketones Negativemg/dL (NEGATIVE) Urine Occult Blood Moderate (NEGATIVE) Urine Nitrite Negative (NEGATIVE) Urine Bilirubin Negative (NEGATIVE) Urine Urobilinogen Normalmg/dL (NORMAL) Urine Leukocyte Esterase Negative (NEGATIVE) Urine RBC 3-10/hpf (0-2) Urine WBC 0-5/hpf (0-5) Urine Epithelial Cells Few/hpf (NONE-MOD) Urine Crystals None seen (NONE SEEN) Urine Bacteria Few/hpf (NONE-FEW) Urine Hyaline Casts None/lpf (NONE) Urine Granular Casts None seen (NONE SEEN) Urine Waxy Casts None seen (NONE SEEN) Urine Red Blood Cell Casts None seen (NONE SEEN) Urine White Blood Cell Casts None seen (NONE SEEN) Urine Mucus None seen (None Seen) Urine Trichomonas None seen (NONE SEEN) Urine Yeast None (NONE SEEN) Urinalysis Comment None Urine Culture Reflexed Not indicated Sodium Level 140mEq/L (134-144) Potassium Level 3.9mEq/L (3.5-5.2) Chloride Level 96mEq/L (97-108) Carbon Dioxide Level 28mmol/L (18-29) Blood Urea Nitrogen 11mg/dL (8-27) Creatinine 0.78mg/dL (0.57-1.00) Estimat Glomerular Filtration Rate 105mL/min (>59) Glucose Level 86mg/dL (60-99) Calcium Level 9.3mg/dL (8.5-10.1) Total Bilirubin 0.3mg/dL (0.0-1.2) Aspartate Amino Transf (AST/SGOT) 28U/L (0-50) Alanine Aminotransferase (ALT/SGPT) 17U/L (0-32) Alkaline Phosphatase 189U/L (25-165) Pro-B-Type Natriuretic Peptide 5070pg/mL (0-301) Total Protein 6.0g/dL (6.4-8.4) Albumin 3.0g/dL (3.4-5.0) Procalcitonin 0.14ng/mL (0.00-0.08) Hold Purple Top Tube Received (Received) D-Dimer < 0.5mg/L (<0.50) Hold Blue Top Tube Received (Received) Hold Red Top Tube Received (Received) Hold [place] Top Tube Received (Received) Hold Alej[place] Top Tube Received (Received) Lactic Acid Level 1.3mmol/L (0.4-2.0) Troponin T 0.098ug/L (0.0-0.011) Assessment/Plan Assessment/Plan A: * Vancomycin dosing by pharmacy for 71 y/o woman with pneumonia meeting sepsis criteria * The patient received a 1000 mg IV dose of vancomycin in the ED * She is also being started on cefepime and Levaquin * Estimated CrCl is 70 mL/min (Cockcroft & Gault using AdjBW) * Estimated vancomycin half-life is 11 hours and estimated Vd is 61 liters P: * Starting vancomycin 1000 mg IV every 12 hours * Target vancomycin trough range of 15 - 20 mcg/mL * Drawing a trough level prior to the fourth dose Thank you. Pharmacy will continue to follow. Elly Garvin, PharmD Elly Garvin Sep 13, 2016 01:28
[2016-09-13] MEDS: HYDROcodone-APAP 5-325 mg Tablet PO PRN ×4 (05:32→18:43)
[2016-09-13] MEDS: Vancomycin Inj 1,000 MG in IV Premix 1 EACH IV SCH ×2 (05:33→17:26)
[2016-09-13 05:34] LABS: BASOPHILS % (AUTO) 0.6 % (0-3); EOSINOPHILS % (AUTO) 0.4 % (0-5); MONOCYTES % (AUTO) 9.1 % (4-12); Mean Corpuscular Hemoglobin 33.7 pg (27.0-35.0); Mean Corpuscular Volume 99.6 fL (81-100); NEUTROPHILS % (AUTO) 81.7 % (40-74); Platelet Count 222 bil/L (150-400)
[2016-09-13] MEDS: Albuterol-Ipratropium 3 mL Inhalation Solution NEB SCH ×4 (06:00→21:12)
--- NOTE | 2016-09-13 06:39 | NUR ---
Admit/Tele/Cough Admitted to room 2030, admission interview and assessment complete, Med Req as well as possible , Pt somewhat poor historian on details. No Advanced directive. Persistent cough , lungs sounds coarse , crackly , Wheezy through out . Tele S-Tach NS @ tko , ABX as ordered. 3 L O2 Per NC
[2016-09-13] MEDS ORDERED: Vancomycin Dose per Pharmacist XX SCH (08:30)
[2016-09-13] MEDS: Cefepime Inj 2,000 MG in Dextrose 5% Minibag Plus 100 ML IV SCH ×2 (09:44→17:27)
[2016-09-13] MEDS: ALPRAZolam 0.5 mg Tablet PO PRN ×2 (10:07→20:53)
--- NOTE | 2016-09-13 11:15 | DRSVH ---
PROCEDURE: X-RAY CHEST ONE VIEW, PORTABLE ([id number]) INDICATIONS: chest pain now radiating to back TECHNIQUE: One view of the chest was acquired. COMPARISON: [facility], CT, CT ABD PELVIS W CON, 08/18/2016, 12:30. [facility], CR, XR CHEST 1VW (PORTABLE), 09/12/2016, 17:36. FINDINGS: Surgical changes and devices: None. Lungs and pleura: Bilateral interstitial infiltrates suggest mild pulmonary edema. There is more con fluent opacity in the right hilum and left lung base. No pleural effusions or pneumothorax. Mediastinum: Mediastinal contours appear normal. Heart size is mildly increased. There is a modera te-sized hiatal hernia. Bones and chest wall: No suspicious bony lesions. Overlying soft tissues appear unremarkable. IMPRESSION: 1. Mild cardiomegaly and pulmonary congestion. 2. The right perihilar and left lower lobe opacities may be superimposed resolving pneumonia. 3. Moderate-sized hiatal hernia. Dictated by: Abbi Leigh M.D. on 09/13/2016 at 11:11 Approved by: Abbi Leigh M.D. on 09/13/2016 at 11:14
[2016-09-13] MEDS: Albuterol 2.5 mg/3 mL Inhalation Solution NEB PRN (12:20)
[2016-09-13 12:29] LABS: Creatine Kinase 38 U/L (21-215)
[2016-09-13 12:31] LABS: TROPONIN T 0.112 ug/L (0.0-0.011)
--- NOTE | 2016-09-13 15:53 | NUR ---
Social Work: Initial Assessment D: Per EMR review, pt is a 71 year old female admitted for pneumonia, sepsis, elevated troponin. Pt is Medicare with [employer]; pt has no LTC insurance or VA benefits. NOK is Kevin No, spouse, . Advanced directives not completed- information provided. Pt readmit score not entered at this time- pt was discharged from [facility] on 08/20/2016 to [facility] and is a readmit. COMPUTER SYSTEMS SUPPORT SPECIALIST met with pt at bedside. Sw role explained and contact information provided. See initial assessment. Pt discharged from [facility] several days ago and has been living at home with her s/o. She states that she has had no issues with ambulation and that she is not using any DME. Pt states that they declined HH during discharge from [facility] and still do not believe it would be beneficial to her. Pt is not currently driving and will rely on her spouse for transportation home when ready. Pt declines any SW needs. COMPUTER SYSTEMS SUPPORT SPECIALIST attempted to discuss pt's ETOH use and to offer community resources; pt declined to speak with COMPUTER SYSTEMS SUPPORT SPECIALIST about her drinking habits. Pt not currently on CIWA and not showing signs of ETOH withdrawal. Please reference CD assessment completed on 08/20/16 for more information about pt's ETOH use/history. A: Pt who is I at baseline. P: Anticipate pt to discharge home via POV once medically stable; COMPUTER SYSTEMS SUPPORT SPECIALIST to continue to follow and assist if pt's clinical course warrants discharge needs. [facility] Gonzalez Addendum: 09/13/16 at 1559 by AMADOU KENNEDY Amended: Links added.
--- NOTE | 2016-09-13 16:23 | DRSVH ---
[facility] [address] [place] [address] Echocardiogram Report Name: VENANCIO GOMEZ Date: 09/13/2016 Height: 61 in Hospital Exam Location: [facility] Weight: 193 lb Gender: Female BSA: 1.9 m2 : 1945 Age: 71 yrs BP: 139/96 mmHg Reason For Study: SOB, SEPSIS, ELEVATED TROPONIN Ordering Physician: Performed By: Marcella Becerra Referring Physician: Gonzalo Galan Interpretation Summary Left ventricular size is at the upper limits of normal. The ejection fraction is estimated to be 55-60%.Compared to the prior exam, left ventricular function is slightly decreased. There is mid to distal posteriolateral wall severe hypokinesis (New). Right ventricular systolic function is mildly reduced. Suspect PMD of posterior mitral leaflet. There is severe mitral regurgitation. Compared to the prior echo study, there has been an increase in the severity of mitral regurgitation. The mitral regurgitant jet is eccentrically directed. There is mild tricuspid regurgitation. The right ventricular systolic pressure is estimated at 44 mmHg assuming a right atrial pressure of 8 mm Hg. Compared to the prior echo exam, there has been an increase in the severity of pulmonary hypertension. Procedure: A two-dimensional transthoracic echocardiogram with color flow and Doppler was performed. The study quality was technically adequate. Comparison is made with the echocardiogram of 11/14/2015. The patient had a bundle branch block rhythm during the exam. Rhythm is not very clear. Left Ventricle: Left ventricular wall thickness is mildly increased. Left ventricular size is at the upper limits of normal. There is no thrombus. The ejection fraction is estimated to be 55-60%. Compared to the prior exam, left ventricular function is slightly decreased. There is mid to distal posteriolateral wall severe hypokinesis. The E/E' ratio is abnormal. Right Ventricle: The right ventricle is grossly normal size. Right ventricular systolic function is mildly reduced. Atria: The left atrium is severely dilated. The left atrium has significantly increased in size since the prior echo exam. Right atrial size is normal. There is no Doppler evidence for an interatrial shunt. Mitral Valve: The mitral valve leaflets are mildly calcified. There is mild mitral annular calcification. The mitral valve chordae are thickened and/or calcified. Suspect PMD of posterior mitral leaflet. There is severe mitral regurgitation. The mitral regurgitant jet is eccentrically directed. Compared to the prior echo study, there has been an increase in the severity of mitral regurgitation. Aortic Valve: The aortic valve is slightly calcified. The aortic valve is trileaflet. The aortic valve opens well. No aortic regurgitation is present. Tricuspid Valve: The tricuspid valve is normal in structure and function. There is mild tricuspid regurgitation. The right ventricular systolic pressure is estimated at 44 mmHg assuming a right atrial pressure of 8 mm Hg. Compared to the prior echo exam, there has been an increase in the severity of pulmonary hypertension. Pulmonic Valve: The pulmonic valve leaflets are thin and pliable; valve motion is normal. There is trace pulmonic regurgitation. Great Vessels: The aortic root is normal size. The ascending aorta is at the upper limits of normal in size. The IVC is of normal diameter and collapses less than 50% with a sniff. This suggests a right atrial pressure of 8 mm Hg. Pericardium/ Pleura There is no pericardial effusion. There is an anterior echo-free space consistent with a fat pad. MMode/2D Measurements & Calculations LVIDd: 5.2 cm LA dimension: 4.2 cm RA long axis LVOT diam LVIDs: 3.7 cm FS: 28.2 % LA A2 area: 24.7 cm RA area AoV Opening EPSS: 1.3 cm LA A4 area: 27.7 cm IVSd: 0.97 cm LA length (vol): 6.1 cm: 13.7 cm Ao root diam LVPWd: 1.1 cm LA vol: 95.3 ml RA vol LA vol index : 34.0 ml Aortic Jxn RA : 18.3 mm2 asc Aorta IVC diam: 1.8 cm Diam: 3.3 cm LV martines. diameter/BSA LV sys. diameter/BSA RVD1 (basal) TAPSE: 1.6 cm (cm/m^2): 2.8 (cm/m^2): 2.0 Doppler Measurements & Calculations Ao V2 max MV E max artemio MV E/A: 1.1 TR max artemio : 168.6 cm/sec : 148.7 cm/sec Med Peak E' Artemio : 298.3 cm/sec Ao max PG MV A max artemio TR max PG : 11.4 mmHg : 141.0 cm/sec E/E' med: 23.6 : 35.6 mmHg Ao mean PG MV P1/2t: 41.2 msecLat Peak E' Artemio PA V2 max : 97.1 cm/sec LVOT Max Artemio MVA(VTI): 2.0 cm E/E' lat: 15.6 PA mean PG : 90.3 cm/sec MR ERO: 0.23 cm2 E/e' average: 19.6 PA Accel Time CJ(I,D): 1.8 cm : 0.12 sec sev ratio MV V2 mean MV P1/2t max artemio Ao V2 mean LV V1 max PG : 114.6 cm/sec : 113.8 cm/sec MV mean PG MVA(P1/2t): 5.3 cm2Ao V2 VTI: 29.0 cm LV V1 VTI CJ(V,D): 1.7 cm2 : 16.9 cm MV V2 VTI: 26.7 cm MV dec time : 0.14 sec MR flow rate PA V2 mean CJ indexed to BSA : 123.2 cm3/sec : 67.7 cm/sec (cm^2/m^2): 0.98 MR PISA radius Reading Physician:RY
--- NOTE | 2016-09-13 18:01 | PCM.PNMED ---
Subjective Date of Service Sep 13, 2016 Subjective Ms. No is a 71-year-old female with CAD, hypertension, COPD and systolic CHF presenting with shortness of breath. She continues to be short of breath and have a productive cough with yellow sputum. She currently has retrosternal chest pain that is severe and feels sharp. It now radiates straight to her back and into her left shoulder. She has associated nausea. The chest pain gets worse when she takes a deep breath. She feels anxious. Pt has not had a nebulizer treatment this morning yet. After receiving a dose of her anxiety medicine and a nebulizer treatment, her chest pain improved to a 3/10. Exam Vital Signs Vital Sign - Last Date Time Temp Pulse Resp B/P Pulse Ox O2 Delivery O2 Flow Rate FiO2 09/13/16 16:40 98 18 93 Nasal Cannula 5.00 09/13/16 12:24 37.2 132/89 Intake and Output 09/12/16 09/12/16 09/13/16 Cumulative From/Thru 15:00 23:00 07:00 09/12/16 17:28 - 09/13/16 06:37 Intake Total 500 ml 800 ml 1300 ml Output Total 300 ml 300 ml Balance 500 ml 500 ml 1000 ml Intake Oral 800 ml 800 ml IV Total 500 ml 500 ml Output Urine Total 300 ml 300 ml # Bowel Movements 1 1 Exam General: Patient sitting upright in bed. Moderate distress, well-developed, well -nourished, appropriately interactive HEENT: Normocephalic, atraumatic. External ears without defect. Pupils equal, round, and reactive to light. Anicteric sclerae, moist conjunctivae, and no lid lag. Oropharynx free of erythema and cobble stoning with moist mucosa. Neck: Supple. No jugular venous distension. No lymphadenopathy or thyromegaly. Cardiovascular: Tachycardic. No murmurs, rubs, or gallops appreciated but difficult to appreciate with coarse lung sounds. Pulmonary: Diffuse coarse lung sounds bilaterally with end expiratory wheezes. Abdomen: Bowel tones present. Soft, nontender, nondistended. No hepatosplenomegaly or masses appreciated. Extremities: Mild bilateral lower extremity pitting edema to mid-calves. Skin: Normal temperature, turgor, and texture; no rash, ulcers, or subcutaneous nodules appreciated. Neurological: Cranial nerves grossly intact. Psychiatric: Anxious. Normal affect. Alert and oriented to person, place, and time. IVs and Medications Medications Reviewed: Medications were reviewed in detail Lab and Diagnostics Result Diagram: 09/13/16 0514 09/13/1614 X-Rays, CTs and MRIs PROCEDURE: X-RAY CHEST ONE VIEW, PORTABLE Date of Service: 09/12/16 1718 IMPRESSION: Right perihilar and left lower lobe pneumonia. Recommend followup to resolution. Approved by: Abbi Leigh M.D. on 09/12/2016 at 18:02 PROCEDURE: X-RAY CHEST ONE VIEW, PORTABLE IMPRESSION: 1. Mild cardiomegaly and pulmonary congestion. 2. The right perihilar and left lower lobe opacities may be superimposed resolving pneumonia. 3. Moderate-sized hiatal hernia. Approved by: Abbi Leigh M.D. on 09/13/2016 at 11:14 Cardiac Echo Impressions Echocardiogram Report Interpretation Summary Left ventricular size is at the upper limits of normal. The ejection fraction is estimated to be 55-60%.Compared to the prior exam, left ventricular function is slightly decreased. There is mid to distal posteriolateral wall severe hypokinesis (New). Right ventricular systolic function is mildly reduced. Suspect PMD of posterior mitral leaflet. There is severe mitral regurgitation. Compared to the prior echo study, there has been an increase in the severity of mitral regurgitation. The mitral regurgitant jet is eccentrically directed. There is mild tricuspid regurgitation. The right ventricular systolic pressure is estimated at 44 mmHg assuming a right atrial pressure of 8 mm Hg. Compared to the prior echo exam, there has been an increase in the severity of pulmonary hypertension. Reading Physician:PM Assessment & Plan Patient is a 71-year-old female with CAD, hypertension, COPD and systolic CHF presenting with shortness of breath and admitted for pneumonia. 1. Acute sepsis. Present on admission. Active -Meets criteria with HR (131), RR (30) and evidence of pulmonary source of infection, likely HCAP -UA negative for nitrites and leukocyte esterase -Lactic acid 2.4 initially but decreased to 1.3 today. Procalcitonin 0.18 today. -IV fluids given in the emergency department -Currently on antibiotics as below 2. Acute dyspnea. Present on admission. Active -Etiology likely due to pneumonia but possible COPD exacerbation and CHF component given elevated Pro-BNP -D-dimer<0.05 -Supplemental oxygen as needed and nebulizer treatments as below 3. COPD, chronic with acute exacerbation. Present on admission -DuoNeb scheduled -Albuterol as needed 4. Acute bilateral pneumonia. Present on admission. Active -Presumed health care associated pneumonia given recent hospitalization, stay at [facility] -Chest x-ray reads perihilar and left lower lobe pneumonia -RSV positive, possible viral pneumonia with secondary bacterial infection -Legionella ur antigen and Strep pneumo ur antigen and influenza are negative -MRSA screen, sputum culture, and blood culture are pending -Continue vancomycin, cefepime and levofloxacin. Will de-escalate with results of studies and cultures -Infectious disease consulted and following. His time and recommendations are appreciated. 5. Chest pain, acute. Present on admission. Improved. -Troponin 0.108 initially and stable around 0.112, but CK-MB 4.5 -Patient has intermittent chest pain . Repeat EKG during active chest pain shows sinus tachycardia with premature atrial contractions and inferior old infarct. No acute ST-elevation or depression. -Less likely acute ischemia, possibly demand from sustained tachycardia and from chronic mitral regurgitation -Echocardiogram and chest x-ray as above. Repeat chest x-ray did not show mediastinal widening. -Cardiac catheterization with coronary angiogram in 02/2014 shows severe mitral regurgitation and normal coronary arteries -Continue to trend troponin 6. Systolic CHF, chronic. Present on admission -Echocardiogram from 10/2015 shows estimated LV EF to be 55-60%, which is slightly decreased compared to prior study and worsening pulmonary hypertension -Pro-BNP elevated 5070 -Echocardiogram as above 7. Hypertension, chronic. Present on admission. -Follow vitals -Labetalol PRN 8. Mitral regurgitation, chronic. Present on admission -Worsening MR on last echo from 10/2015 -Echocardiogram 9. Hypothyroidism, chronic. Present on admission -Home dose of levothyroxine unknown but from discharge instructions in 07/2016 she was taking 50 mg of levothyroxine once daily -Repeat TSH tomorrow 10. GERD, chronic. Present on admission -Hiatal hernia on chest x-ray and likely contributing to her chest pain Patient Status: Patient is admitted under inpatient status with expected length of stay greater than 2 midnights due to severity of presenting symptoms, risk of adverse event, and complexity of treatment plan. VTE Prophylaxis: Sub-Q Heparin (Unfractionated) VTE Mechanical Devices: Intermittant Pneumatic CD Resuscitation Status: Limited Interventions Limited Interventions: Compressions, Cardioversion/Defibrillation, BiPAP, Medications and IV Fluid Time spent 35 minutes Attending Statement Patient seen and examined with housestaff, agree with all attached documentation. Stephanie Diaz DO Sep 13, 2016 17:15 Jassi Vaughan MD Sep 14, 2016 09:51
--- NOTE | 2016-09-13 18:47 | NUR ---
Pain/Tele/Ambulation Patient alert and oriented x3, pleasant and cooperative throughout shift. Reported chest pain/tightness in AM, EKG ordered and showed no significant changes. Hydrocodone (2 tabs) given, patient reported relief. BP 174/129 this AM during chest pain episode, this BP also resolved to within normal limits throughout remainder of shift. Patient reported continuous abdominal pain 5-6/10 throughout shift as sharp/cramping -- administered 8mg zofran x1 and 2 tabs of hydrocodone Q4 hours, patient reported relief. Tele SR/TACH 80s-low 100s, RR 20 and SPO2 on 3LNC 95%. Patient up SBA to BR with no oxygen, tolerates well. Contact and droplet precautions for RSV and C.Diff.
[2016-09-13] MEDS ORDERED: levoFLOXacin Inj 750 MG in IV Premix 1 EACH IV SCH (20:30)
[2016-09-13] MEDS: Vancomycin 125 mg Oral Capsule PO SCH (20:53)
[2016-09-14] VITALS (13 sets, daily range): BP systolic 128–174; BP diastolic 83–112; PULSE 79–110; RESP 18–24; O2SAT 90–95
[2016-09-14] MEDS: HYDROcodone-APAP 5-325 mg Tablet PO PRN ×5 (00:04→23:23)
[2016-09-14] MEDS: Heparin 5,000 Unit/mL Inj SUBQ SCH ×2 (00:07→09:10)
--- NOTE | 2016-09-14 00:14 | CONS ---
[address] [address] CONSULTATION REPORT PATIENT: VENANCIO GOMEZ : 1945 MR#: [id number] ADMIT: 09/12/2016 JOB ID: [id number] DATE OF SERVICE: 09/13/[address] Diaz for this timely consultation. REASON FOR CONSULT: Recurrent C. diff and pulmonary infiltrates. HISTORY OF THE PRESENT ILLNESS: The patient is a complex 71-year-old woman who was recently discharged from this hospital. She was admitted for almost two weeks during most of the month of July and during that complex admission was found to have alcoholic hepatitis as well as alcohol withdrawal and C. difficile colitis. Eventually, she was successfully discharged to [facility] on August 20. She spent 10 days or so there gradually convalescing and getting stronger before going home and was home for about 10 days before her readmission here. She and her relate that even after she left [facility] and completed the therapy for C. diff, she was continuing to have several loose stools per day, probably on the order of three or four a day. This was associated with fairly continuous nausea but no vomiting and overall poor appetite. That was not the complaint, however, which drove her back to the hospital. Rather, the patient and her report that within the 48 hours or so before yesterday's admission, she started to develop rapidly increasing shortness of breath which was associated with production of some clear sputum. She also noticed that her lower extremity edema, which has been a chronic problem, may have gotten a bit worse. There was no associated pleuritic chest pain, fevers, chills or sweats. She denied any symptoms of urinary tract infection and eventually came to the ED for evaluation because of the continuing diarrhea but, more importantly, the rapidly increasing shortness of breath. In the ED, an x-ray suggested the possibility of pneumonia which was interpreted as a possible H. cap and she was started on very broad-spectrum antibiotics in addition to having a repeat stool PCR for C. diff done which turned out to be positive. ID consultation is requested at this time to help sort out the positive stool for C. diff PCR as well as possible pulmonary pneumonia in a patient who also has underlying organic heart disease and COPD. PAST MEDICAL HISTORY: 1. Alcoholism, with alcoholic hepatitis in the recent past. 2. Organic heart disease; a. AFib. b. Congestive heart failure. c. Severe mitral regurgitation. 3. Hypertension. 4. COPD. 5. Hypothyroidism. 6. Chronic insomnia. 7. Hyperlipidemia. SOCIAL HISTORY: The patient is a longstanding heavy smoker and that has continued up until a week or so ago. 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 She lives with her in the [facility]. FAMILY HISTORY: Negative for TB in all first-degree relatives. Positive for mother who of aortic valve issues and her father of emphysema, both in their old age. REVIEW OF SYSTEMS: Was done. The patient is awake, alert and able to give a good history. She says she has no significant headache. No visual complaints. No sore throat and no trouble swallowing. She has had rather significant anorexia though and just persistent nausea as she noted without vomiting. Her loose stools have continued to pace ever since she left the hospital and never really improved very much. She has had a dry cough which has produced a bit of clear sputum but has largely been nonproductive for about two days now. This is not associated with pleuritic chest pain. She does feel increasingly short of breath, however, and this is worrisome to her. No substernal chest pain. She has not had dysuria, urgency, or frequency, but she has reported fecal and urinary incontinence which has been going on for several months now and is very distressing to her. She denies any pneumaturia. Note that an earlier note in the chart from last admission suggests positive Crohn disease. The patient has chronic lower extremity edema. She notes that her legs are actually better now than they were at [facility] though they may be on the upswing again a little bit with bilateral lower extremity edema. She denies neuropathy. Notes that she has good sensation in her feet and her ability to walk and get around is reasonable. Remainder of the review of systems is negative. PHYSICAL EXAMINATION: Reveals an afebrile woman. Temp 37.2, pulse 98, respiratory rate 18, blood pressure 132/89. She is saturating well but requiring 5 L. She is sitting up, awake and alert. She appears somewhat chronically ill overall. She is oriented x3 and able to give a good history. The head is without trauma. The eyes without scleral icterus or conjunctivitis. Oral cavity: No thrush or pharyngitis. The neck is supple without adenopathy. The lungs are notable for scattered crackles throughout both lower lung fuller. Cardiac tone: Regular rate and rhythm with about A 1/6 murmur heard best at the left lower sternal border. The patient's abdomen is slightly protuberant but without obvious ascites. There is no notable hepatosplenomegaly or caput medusa. She does not have a Brandt. There is no suprapubic catheter present. She is wearing a diaper because of her incontinence. The extremities have bilateral edema about 2+ which extends to just above the knee. There is some dependent rubor but no evidence of cellulitis. No skin breakdown is noted. Patient's motor functions are intact. She has reasonable 4+/5 strength in all four extremities. There is no evidence for cellulitis or skin breakdown. No evidence for thyromegaly. LABORATORIES: Include white count 4900. The diff 81% segs. The creatinine is 0.73. CPK 38, albumin 2.6. Procalcitonin 0.18 and note the one done yesterday was 0.15. Urinalysis: No white cells. Patient's hep C is known to be negative from her last admission. From this admission we have negative urine pneumococcal and Legionella antigens. The stool for C. diff is positive as it was during her admission back in July by PCR. Sputum Gram stain shows moderate polys without organisms. The urine Legionella and pneumococcal, as mentioned, are negative. Respiratory viral PCR panel positive for RSV. MRSA screen is pending and should be done tomorrow morning. IMAGING: Includes a chest x-ray which shows mild cardiomegaly and pulmonary venous congestion. The radiologist mentioned that there are right perihilar and left lower lobe opacities that could be resolving pneumonia. Am additional lab test I failed to mention was the BNP. This is 5070. Note that in her last admission she had some BNPs that were in the 100s not in the thousands. Echocardiogram: The patient had an echo which shows ejection fraction 55% to 60% with posterolateral severe hypokinesis. There is severe mitral regurgitation which seems to be worsening and some elevation of right-sided heart pressures as well. It appears her pulmonary hypertension is worsening. IMPRESSION: The patient may or may not have ongoing Clostridium difficile. The PCR test is so sensitive that it is not at all surprising that even if one was doing well following successful treatment of C. difficile colitis, that their stool PCR would still be positive some weeks later. The patient does have chronic diarrhea, but this could be on the basis of other colon pathology and, in fact, she is scheduled for a colonoscopy in the near future because of concerns about the status of her colon that were raised during her last admission. The possibility of inflammatory bowel disease and malignancy have both been raised with respect to her gastrointestinal tract. At this point, we have no way to sort out if she has C. diff or not, and I think we are obligated to go ahead and treat her with a prolonged course of oral vancomycin. The bigger issues of what is going on in her chest, I suspect is primarily fluid overload and congestive heart failure as opposed to an atypical, or for that matter, typical pneumonia. This is difficult to say, of course, but the patient does have echocardiogram which is worsening in association with an elevated BNP. She does not have fever and she does not have an elevated procalcitonin, both of which would argue against a bacterial pneumonia. RECOMMENDATIONS: 1. For now, we can continue with cefepime and levo, though I am inclined to stop those in the near future. I would stop her intravenous vancomycin as this is likely to cause only toxicity. 2. I would start the patient on oral vancomycin in a dose of 125 q.i.d. with the intention of taking this for a minimum of two weeks, but I think will add onto that a prolonged taper. 3. Will probably go ahead and stop most of the rest of her systemic antimicrobials tomorrow if there is no more convincing evidence that she has a bacterial pneumonia. This case discussed in detail with the medical team. Thank you very much for allowing me to see this patient in consult, and I will be following her up tomorrow.
[2016-09-14] MEDS ORDERED: Labetalol 5 mg/mL 4 mL Inj IVPUSH ONE (00:15)
[2016-09-14] MEDS: Ondansetron 2 mg/mL 2 mL Inj IVPUSH PRN ×2 (00:48→06:42)
[2016-09-14] MEDS: Cefepime Inj 2,000 MG in Dextrose 5% Minibag Plus 100 ML IV SCH ×3 (02:59→15:40)
[2016-09-14] MEDS: Vancomycin 125 mg Oral Capsule PO SCH ×4 (02:59→19:43)
[2016-09-14 03:07] LABS: BASOPHILS % (AUTO) 0.2 % (0-3); EOSINOPHILS % (AUTO) 1.3 % (0-5); MONOCYTES % (AUTO) 10.5 % (4-12); Mean Corpuscular Hemoglobin 33.1 pg (27.0-35.0); NEUTROPHILS % (AUTO) 79.7 % (40-74); Platelet Count 219 bil/L (150-400)
--- NOTE | 2016-09-14 03:15 | NUR ---
BP Pt BP elevated at 147/101 and 163/107. notified and orders received. One time Labetolol given at 0049. BP rechecked at 133/87 and remains at 143/99 at 0300 check.
[2016-09-14] MEDS: Albuterol 2.5 mg/3 mL Inhalation Solution NEB PRN (03:17)
--- NOTE | 2016-09-14 03:34 | NUR ---
CP Pt states she awoke with a "panicky" feeling, SOB and with CP that wraps around to her back. VSS. EKG done, shows NSR, no changes from baseline. Nebulizer given per RT as well. MD notified and in to bedside. Pt c/o continued nausea and anxiety. New orders received.
[2016-09-14] MEDS: MetoCLOpramide 5 mg/mL 2 mL Inj IVPUSH PRN ×2 (03:48→09:10)
[2016-09-14] MEDS ORDERED: Vancomycin Serum Trough XX ONE (05:00)
[2016-09-14] MEDS: Albuterol-Ipratropium 3 mL Inhalation Solution NEB SCH ×4 (07:53→22:54)
[2016-09-14] MEDS: ALPRAZolam 0.5 mg Tablet PO PRN ×2 (09:10→21:25)
[2016-09-14] MEDS ORDERED: Heparin 25K Unit/500mL 0.45 NS 25,000 UNIT in IV Premix 1 EACH IV SCH (10:40)
[2016-09-14] MEDS: predniSONE 20 mg Tablet PO SCH ×2 (11:42→19:43)
--- NOTE | 2016-09-14 12:04 | PCM.PNMED ---
Subjective Date of Service Sep 14, 2016 Subjective Ms. No is a 71-year-old female with CAD, hypertension, COPD and systolic CHF presenting with shortness of breath. Overnight, pt had an episode of chest pain that was improved after nebulizer treatment and Ativan. She continues to have dyspnea and a productive cough with clear sputum. She has increased leg edema with some pain from the distention of her skin in her legs. Exam Vital Signs Vital Sign - Last Date Time Temp Pulse Resp B/P Pulse Ox O2 Delivery O2 Flow Rate FiO2 09/14/16 12:01 36.7 91 18 155/102 94 Nasal Cannula 4.00 Intake and Output 09/13/16 09/13/16 09/14/16 Cumulative From/Thru 15:00 23:00 07:00 09/12/16 17:28 - 09/14/16 06:56 Intake Total 105 ml 778 ml 613 ml 2796 ml Output Total 550 ml 450 ml 1300 ml Balance 105 ml 228 ml 163 ml 1496 ml Intake Oral 640 ml 250 ml 1690 ml IV Total 105 ml 138 ml 363 ml 1106 ml Output Urine Total 550 ml 450 ml 1300 ml # Bowel Movements 1 2 Exam General: Patient sitting upright in bed. Moderate distress, well-developed, well -nourished, appropriately interactive HEENT: Normocephalic, atraumatic. External ears without defect. Pupils equal, round, and reactive to light. Anicteric sclerae, moist conjunctivae, and no lid lag. Oropharynx free of erythema and cobble stoning with moist mucosa. Neck: Supple. No jugular venous distension. No lymphadenopathy or thyromegaly. Cardiovascular: Tachycardic. No murmurs, rubs, or gallops appreciated but difficult to appreciate with coarse lung sounds. Pulmonary: Diffuse coarse lung sounds bilaterally with end expiratory wheezes. Abdomen: Bowel tones present. Soft, nontender, nondistended. No hepatosplenomegaly or masses appreciated. Extremities: Moderate bilateral lower extremity pitting edema to mid-calves. Skin: Normal temperature, turgor, and texture; no rash, ulcers, or subcutaneous nodules appreciated. Neurological: Cranial nerves grossly intact. Psychiatric: Anxious. Normal affect. Alert and oriented to person, place, and time. IVs and Medications Medications Reviewed: Medications were reviewed in detail Lab and Diagnostics Result Diagram: 09/14/16 0230 09/14/16 0230 X-Rays, CTs and MRIs PROCEDURE: X-RAY CHEST ONE VIEW, PORTABLE Date of Service: 09/12/16 1783 IMPRESSION: Right perihilar and left lower lobe pneumonia. Recommend followup to resolution. Approved by: Abbi Leigh M.D. on 09/12/2016 at 18:02 PROCEDURE: X-RAY CHEST ONE VIEW, PORTABLE IMPRESSION: 1. Mild cardiomegaly and pulmonary congestion. 2. The right perihilar and left lower lobe opacities may be superimposed resolving pneumonia. 3. Moderate-sized hiatal hernia. Approved by: Abbi Leigh M.D. on 09/13/2016 at 11:14 Cardiac Echo Impressions Echocardiogram Report Interpretation Summary Left ventricular size is at the upper limits of normal. The ejection fraction is estimated to be 55-60%.Compared to the prior exam, left ventricular function is slightly decreased. There is mid to distal posteriolateral wall severe hypokinesis (New). Right ventricular systolic function is mildly reduced. Suspect PMD of posterior mitral leaflet. There is severe mitral regurgitation. Compared to the prior echo study, there has been an increase in the severity of mitral regurgitation. The mitral regurgitant jet is eccentrically directed. There is mild tricuspid regurgitation. The right ventricular systolic pressure is estimated at 44 mmHg assuming a right atrial pressure of 8 mm Hg. Compared to the prior echo exam, there has been an increase in the severity of pulmonary hypertension. Reading Physician:PM Assessment & Plan Patient is a 71-year-old female with CAD, hypertension, COPD and systolic CHF presenting with shortness of breath and admitted for pneumonia. 1. Chest pain, acute. Present on admission. Improved. -Probable NSTEMI -Troponin downtrending but continues to be elevated. Patient has intermittent chest pain. Repeat EKG during active chest pain shows sinus tachycardia with premature atrial contractions and inferior old infarct. No acute ST-elevation or depression. -CK-MB 4.5 within normal limits -Echocardiogram shows a new area of hypokinesis -Echocardiogram and chest x-ray as above. Repeat chest x-ray did not show mediastinal widening. -Cardiac catheterization with coronary angiogram in 02/2014 shows severe mitral regurgitation and normal coronary arteries -Cardiology consulted and following. Their time and recommendations are appreciated. -Started on ASA 81 mg daily, clopidogrel 75 mg once daily, atorvastatin 40 mg once daily at bedtime -Heparin drip per protocol -Furosemide IV 40 mg bid 2. Systolic CHF, acute on chronic. Present on admission. Active. -Echocardiogram from 10/2015 shows estimated LV EF to be 55-60%, which is slightly decreased compared to prior study and worsening pulmonary hypertension -Pro-BNP elevated 5070 -Echocardiogram as above -Resume furosemide 40 mg once daily in the AM and monitor potassium level, replenish if needed. 3. Acute dyspnea. Present on admission. Active -Etiology likely due to COPD exacerbation and CHF exacerbation -D-dimer<0.05 -Supplemental oxygen as needed and nebulizer treatments as below 4. COPD, chronic with acute exacerbation. Present on admission. Active. -DuoNeb scheduled -Albuterol as needed -Added prednisone 40 mg BID 5. Acute sepsis. Present on admission. -Met criteria with HR (131), RR (30) and evidence of pulmonary source of infection, likely HCAP -UA negative for nitrites and leukocyte esterase -Lactic acid 2.4 initially but decreased to 1.3 today. Procalcitonin 0.18 yesterday. -IV fluids given in the emergency department 6. Acute bilateral pneumonia. Present on admission. Active -Presumed health care associated pneumonia given recent hospitalization, stay at [facility] -Chest x-ray reads perihilar and left lower lobe pneumonia -RSV positive, possible viral pneumonia with secondary bacterial infection -Legionella ur antigen and Strep pneumo ur antigen and influenza are negative -MRSA screen positive, pt on vancomycin -Sputum culture and blood culture show no growth to date -Stopped cefepime and levofloxacin for now but may stop today as her clinical picture has not worsened. Stopped IV vancomycin and switched to PO vancomycin per infectious disease -Infectious disease consulted and following. His time and recommendations are appreciated. -RSV positive on droplet precautions. 7. Hypertension, chronic. Present on admission. -Follow vitals -See above for #5 8. Mitral regurgitation, chronic (moderate to severe). Present on admission -Likely contributing to #2 above -Worsening MR on last echo from 10/2015 -Echocardiogram as above. 9. Hypothyroidism, chronic. Present on admission -Home dose of levothyroxine unknown but from discharge instructions in 07/2016 she was taking 50 mcg of levothyroxine once daily, which has been resumed -TSH remains elevated 10. GERD, chronic. Present on admission -Hiatal hernia on chest x-ray and likely contributing to her chest pain Patient Status: Patient is admitted under inpatient status with expected length of stay greater than 2 midnights due to severity of presenting symptoms, risk of adverse event, and complexity of treatment plan. VTE Prophylaxis: Sub-Q Heparin (Unfractionated) VTE Mechanical Devices: Intermittant Pneumatic CD Resuscitation Status: Limited Interventions Limited Interventions: Compressions, Cardioversion/Defibrillation, BiPAP, Medications and IV Fluid Time spent 35 minutes Attending Statement Patient seen and examined with house staff. Agree with all attached documentation. Stephanie Diaz DO Sep 14, 2016 12:04 Jassi Vaughan MD Sep 15, 2016 07:47
[2016-09-14] MEDS: Nitroglycerin 2% 1 Gm Ointment TOPICAL SCH ×2 (15:44→19:44)
[2016-09-14] MEDS: Furosemide 10 mg/mL 4 mL Inj IVPUSH SCH ×2 (15:44→19:44)
[2016-09-14] MEDS: Heparin 5,000 Unit/mL Inj IVPUSH PRN (15:46)
--- NOTE | 2016-09-14 16:18 | PCM.CHPCAR ---
Consult Subjective Date of service Sep 14, 2016 Date of admit Sep 12, 2016 at 20:37 Provider Requesting Consult Requesting Provider: Jassi Vaughan MD Primary Care Physician Primary Care Provider: Davin Galan MD Chief Complaint SOB History of Present Illness This is a 71 year female with history of minor moderate mitral regurgitation but no prior history of LV systolic heart failure. The patient has had a prior heart catheterization in 2013 which showed normal coronaries angiographically. The patient was recently hospitalized here at [facility]. She was hospitalized for C. difficile colitis. She has been recently seen by infectious disease and is unsure if she has C. difficile at this moment. She has been treated empirically for it at this time. She was also seen by ID to see if she needs to be treated for atypical pneumonia. Her chest x-ray on admission showed a right middle lobe infiltrate suspicious for pneumonia. However it is noted that her pro BNP was significantly elevated and she does have history of orthopnea since her discharge. The patient states that since she was discharged she has had increased dyspnea with PND and orthopnea and lower extremity edema. The patient denies any chest pain. However her troponins here have become positive which is the first time they have been positive. The patient's EKG also shows new Q waves in the inferior leads in comparison to her previous EKGs. The patient's echocardiogram showed stable LV ejection fraction but has decreased in comparison to her prior echocardiogram. She has worsening mitral regurgitation with at least moderate to severe eccentric jet and increased pulmonary hypertension. There is evidence of LV wall motion on mellitus along the inferolateral wall causing papillary muscle dysfunction secondary to ischemia. I walked into the room and the patient was having complaints of dyspnea at rest and wanted respiratory treatment she does have history of COPD. Unfortunately she continues to smoke. Review of Systems General: Reports: Change in exercise capacity Fatigue Ears, Nose, Mouth & Throat: Denies: Any hearing loss Respiratory: Reports: Orthopnea or PND Significant dyspnea Cardiovascular: Reports: Palpitations Denies: Chest Discomfort Gastrointestinal: Denies: Ulcers or GI blood loss Genitourinary: Denies: Urinary symptoms Musculoskeletal: Reports: Significant joint or back problems Denies: Significant myalgias Neurological: Denies: Any history of stroke/TIA symptoms Psychiatric: Reports: Anxiety Depression Endocrine: Denies: Heat or cold intolerance Integumentary: Denies: Any change in hair or nails Hematologic/Immunologic: Denies: Recent history of anemia Unusual bruising or bleeding PMH Past Medical History Mitral regurgitation Hypothyroidism Hypertension Hyperlipidemia Diverticulosis GERD COPD Chronic insomnia Hiatal hernia Scheduled Metronidazole (Flagyl) 500 Mg Tablet 500 MG PO Q8 Potassium Chloride ER (Potassium Chloride ER) 10 Meq Tablet 10 MEQ PO BID ( Reported) Vit#96/Ferrous Fum/FA ( Tablet) 1 Each Tablet 1 TABLET PO DAILY Vancomycin (Vancomycin) 250 Mg Capsule 250 MG PO Q6 Scheduled PRN Albuterol Sulfate (Ventolin HFA Inhaler) 200 Puff/18 Gm Inhaler 2 PUFF INH Q4-6 HRS PRN PRN PRN For Wheezing (Reported) Alprazolam (Alprazolam) 0.5 Mg Tablet 0.5 MG PO BID PRN PRN For Anxiety ( Reported) Arformoterol Tartrate (Brovana) 15 Mcg/2 Ml Vial.neb 15 MCG IH BID PRN PRN For Shortness of Breath (Reported) Budesonide (Budesonide) 1 Mg/2 Ml Ampul.neb 1 MG IH DAILY PRN PRN For Shortness of Breath (Reported) Hydrocodone-Acetaminophen 5-325 mg (Hydrocodone-Acetaminophen 5-325 mg) 1 Each Tablet 1 TABLET PO BID PRN PRN For Pain (Reported) Hydrocodone-Acetaminophen 5-325 mg (Hydrocodone-Acetaminophen 5-325 mg) 1 Each Tablet 1 TABLET PO Q4H PRN PRN For Pain Ipratropium [place] (Atrovent HFA) 200 Puff/12.9 Gm Inhaler 2 PUFF INH QID PRN PRN For Shortness of Breath (Reported) Loperamide/Simethicone (Imodium Multi-Symptom Rel Cplt) 1 Each Tablet 1 EACH PO PRN PRN PRN For Diarrhea or Loose Stool (Reported) Current Inpatient Medications Current Medications Hydromorphone HCl 0.5 mg Q15MIN PRN IVPUSH Last administered on 09/12/16t 20:00 ; Admin Dose 0.5 MG; Start 09/12/16 at 18:30; Stop 09/12/16 at 21:52; Status DC Ondansetron HCl 4 mg Q15M PRN IVPUSH; Start 09/12/16 at 19:15; Stop 09/12/16 at 21:52; Status DC Al Hydrox/Mg Hydrox/Simethicone 30 ml Q6 PRN PO; Start 09/12/16 at 21:10; Stop 09/12/16 at 21:52; Status DC Ondansetron HCl Dose range: 4 mg to 8 mg Q4H PRN IVPUSH Last administered on 06:42; Admin Dose 8 MG; Start 09/12/16 at 21:10 Acetaminophen 975 mg Q6H PRN PO; Start 09/12/16 at 21:10; Stop 09/12/16 at 21: 52; Status DC Heparin Sodium (Porcine) 5,000 unit Q8 SUBQ Last administered on 09/14/16 09:10 ; Admin Dose 5,000 UNIT; Start 09/13/16 at 00:30; Stop 09/14/16 at 11:41; Status DC Albuterol 2.5 mg Q2H PRN NEB Last administered on 09/14/16 03:17; Admin Dose 2.5 MG; Start 09/12/16 at 21:35 Al Hydrox/Mg Hydrox/Simethicone 30 ml Q6H PRN PO; Start 09/12/16 at 21:35 Senna 17.2 mg BID PRN PO; Start 09/12/16 at 21:35 Polyethylene Glycol 17 gm DAILY PRN PO; Start 09/12/16 at 21:35 Acetaminophen 650 mg Q4H PRN PO; Start 09/12/16 at 21:35 Acetaminophen/ Hydrocodone Bitart 1-2 TABS Q4H PRN PO Last administered on 09/14 13:42; Admin Dose 2 TABLET; Start 09/12/16 at 21:35 Nicotine 1 patch DAILY PRN TOPICAL Last administered on 09/14/16 03:24; Admin Dose 1 PATCH; Start 09/12/16 at 21:35 Pharmacy Consult 1 ea 1 ea DAILY XX; Start 09/13/16 at 08:30; Stop 09/13/16 at 17:54; Status DC Levofloxacin/ Dextrose 750 mg/ Premix 150 ml @ 100 mls/hr Q24H IV Last administered on 09/13/16 20:05; Admin Dose 100 MLS/HR; Start 09/13/16 at 20:30 Cefepime HCl 2000 mg/Dextrose/Water 100 ml @ 25 mls/hr Q8 IV Last administered on 09/14/16 15:40; Admin Dose 25 MLS/HR; Start 09/13/16 at 08:30 Vancomycin/0.9 % Sod Chloride/ Premix 200 ml @ 133.333 mls/hr Q12H IV Last administered on 09/13/16 17:26; Admin Dose 133.333 MLS/HR; Start 09/13/16 at 05 :30; Stop 09/13/16 at 17:54; Status DC Albuterol/ Ipratropium 3 ml QIDWA NEB Last administered on 09/14/16 12:12; Admin Dose 3 ML; Start 09/13/16 at 06:00 Alprazolam 0.5 mg BID PRN PO Last administered on 09/14/16 09:10; Admin Dose 0.5 MG; Start 09/13/16 at 09:40 Vancomycin HCl 125 mg Q6 PO Last administered on 09/14/16 15:39; Admin Dose 125 MG; Start 09/13/16 at 20:30 Levothyroxine Sodium 50 mcg DAILYAC PO Last administered on 09/14/16 09:09; Admin Dose 50 MCG; Start 09/14/16 at 07:30 Metoclopramide HCl 5 mg Q6H PRN IVPUSH Last administered on 09/14/16 09:10; Admin Dose 5 MG; Start 09/14/16 at 03:30 Aspirin 81 mg DAILY PO Last administered on 09/14/16 11:41; Admin Dose 81 MG; Start 09/14/16 at 10:40 Carvedilol 3.125 mg BIDWM PO; Start 09/14/16 at 17:30; Stop 09/14/16 at 17:30; Status DC Clopidogrel Bisulfate 75 mg DAILY PO Last administered on 09/14/16 11:42; Admin Dose 75 MG; Start 09/14/16 at 10:40 Heparin Sodium (Porcine) Per Protocol for a... PRN PRN IVPUSH Last administered on 09/14/16 15:46; Admin Dose 5,000 UNIT; Start 09/14/16 at 10:40 Prednisone 40 mg BID PO Last administered on 09/14/16 11:42; Admin Dose 40 MG; Start 09/14/16 at 10:55 Furosemide 40 mg DAILY PO; Start 09/15/16 at 08:30 Furosemide 40 mg BID IVPUSH Last administered on 09/14/16 15:44; Admin Dose 40 MG; Start 09/14/16 at 15:35 Lisinopril 10 mg BID PO; Start 09/14/16 at 20:30 Nitroglycerin 1.5 inch Q6 TOPICAL Last administered on 09/14/16 15:44; Admin Dose 1.5 INCH; Start 09/14/16 at 15:35 Allergies: Coded Allergies: Penicillins (Verified Allergy, Severe, ANAPHYLAXIS, 08/13/16) bupropion (Verified Allergy, Intermediate, NAUSEA, 08/13/16) fluoxetine (Verified Allergy, Unknown, 08/13/16) sulfasalazine (Verified Allergy, Unknown, UNKNOWN, 08/13/16) Uncoded Allergies: FLU VACCINE (Adverse Reaction, Severe, NAUSEA/ VOMITTING, 01/24/16) Family History Family History Mother with aortic valve issues in her 80s from "old age" Father in his 80s from emphysema Social History 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, 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 [employer]IL[employer] Hx Alcohol Use: Yes (daily)Alcoholic Drinks Per Day: severalHx Substance Use: NoHx Tobacco Use: Yes (1-2 drinks per day) Smoking Status: Current Every Day Smoker (1PPD x 50+ years) Living Arrangement: with Family Exam Vital Signs Vital Sign - Last Date Time Temp Pulse Resp B/P Pulse Ox O2 Delivery O2 Flow Rate FiO2 09/14/16 12:12 92 18 92 Nasal Cannula 3.50 09/14/16 12:01 36.7 155/102 Intake and Output 09/13/16 09/13/16 09/14/16 Cumulative From/Thru 15:00 23:00 07:00 09/12/16 17:28 - 09/14/16 06:56 Intake Total 105 ml 778 ml 613 ml 2796 ml Output Total 550 ml 450 ml 1300 ml Balance 105 ml 228 ml 163 ml 1496 ml Intake Oral 640 ml 250 ml 1690 ml IV Total 105 ml 138 ml 363 ml 1106 ml Output Urine Total 550 ml 450 ml 1300 ml # Bowel Movements 1 2 General: Pleasant [place] Moderately obese Skin: Warm & dry to touch Head: Normocephalic Eye: EOMS intact No arcus or xanthelasma Neck: JVP elevated Ears, Nose & Throat: Ears no gross abnormalities Nose no gross abnormalities Chest: Clear auscultation w/o rales/wheeze Cardiac: Regular rhythm Systolic murmur (3/6) Abdomen: Soft, non-distended, non-tender No masses Extremities: Warm Edema Neurological: Alert & oriented No gross motor or sensory deficits Psychological: Affect & interaction appropriate Memory grossly intact Lab and Diagnostics Labs CBC Test 09/12/16 17:40 09/14/16 02:30 Hold Purple Top Tube Received (Received) White Blood Count 4.5th/mm3 (3.8-10.1) Red Blood Count 2.75mil/mm3 (3.90-5.20) Hemoglobin 9.1g/dL (12.0-15.6) Hematocrit 27.5% (35.0-46.0) Mean Corpuscular Volume 100.0fL (81-100) Mean Corpuscular Hemoglobin 33.1pg (27.0-35.0) Mean Corpuscular Hemoglobin Concent 33.1% (32.0-37.0) Red Cell Distribution Width 19.9% (12.3-15.4) Platelet Count 219bil/L (150-400) Neutrophils (%) (Auto) 79.7% (40-74) Lymphocytes (%) (Auto) 8.1% (14-46) Monocytes (%) (Auto) 10.5% (4-12) Eosinophils (%) (Auto) 1.3% (0-5) Basophils (%) (Auto) 0.2% (0-3) CMP Test 09/12/16 17:05 09/12/16 17:40 09/12/16 23:00 09/13/16 05:14 Pro-B-Type Natriuretic Peptide 5070pg/mL Hold Red Top Tube Received Hold [place] Top Tube Received Hold [place] Top Tube Received Lactic Acid Level 1.3mmol/L Procalcitonin 0.18ng/mL Test 09/13/16 11:35 09/14/16 02:30 09/14/16 08:32 Total Creatine Kinase 38U/L Creatine Kinase MB 4.5ng/mL Creatine Kinase MB % % Sodium Level 135mEq/L Potassium Level 4.2mEq/L Chloride Level 96mEq/L Carbon Dioxide Level 27mmol/L Blood Urea Nitrogen 13mg/dL Creatinine 0.75mg/dL Estimat Glomerular Filtration Rate 110mL/min Glucose Level 84mg/dL Calcium Level 8.8mg/dL Total Bilirubin 0.3mg/dL Aspartate Amino Transf (AST/SGOT) 25U/L Alanine Aminotransferase (ALT/SGPT) 15U/L Alkaline Phosphatase 155U/L Total Protein 5.8g/dL Albumin 2.7g/dL Thyroid Stimulating Hormone (TSH) 52.350uIU/mL Troponin T 0.058ug/L Result Diagram: 09/14/16 0230 09/14/16 0230 X-Rays, CTs and MRIs Date of Service: 09/13/16 1017 PROCEDURE: X-RAY CHEST ONE VIEW, PORTABLE ([id number]) INDICATIONS: chest pain now radiating to back TECHNIQUE: One view of the chest was acquired. COMPARISON: [facility], CT, CT ABD PELVIS W CON, 08/18/2016, 12:30. [facility], CR, XR CHEST 1VW (PORTABLE), 09/12/2016, 17:36. FINDINGS: Surgical changes and devices: None. Lungs and pleura: Bilateral interstitial infiltrates suggest mild pulmonary edema. There is more confluent opacity in the right hilum and left lung base. No pleural effusions or pneumothorax. Mediastinum: Mediastinal contours appear normal. Heart size is mildly increased. There is a moderate-sized hiatal hernia. Bones and chest wall: No suspicious bony lesions. Overlying soft tissues appear unremarkable. IMPRESSION: 1. Mild cardiomegaly and pulmonary congestion. 2. The right perihilar and left lower lobe opacities may be superimposed resolving pneumonia. 3. Moderate-sized hiatal hernia. Assessment & Plan Problems: (1) Acute myocardial infarction of inferolateral wall Plan: Unfortunately this patient appears to be suffering from a recent acute myocardial infarction of the inferolateral wall probably involving the left circumflex or right coronary artery. She has developed acute onset of papillary muscle dysfunction which is causing her to have significant mitral regurgitation and acute congestive heart failure secondary to severe mitral regurgitation. I certainly agree with Dr. Veronica that this is not pneumonia but atypical presentation of congestive heart failure secondary to an eccentric mitral regurgitation. At this time will start on intravenous Lasix and stop carvedilol since she has hypervolemic. We will also like to start on low-dose lisinopril and Nitropaste for afterload reducing. Once she is more euvolemic and we can consider starting her on low-dose beta raina therapy. I am a little bit surprised that she has developed acute ischemia since her coronary angiogram more than 2 years ago was completely normal. I concurred to start IV heparin and I would continue this for at least 48 hours. However also recommend starting her on aspirin and atorvastatin. When she is more euvolemic and is able to lie in supine position then we can proceed with heart catheterization to assess her coronaries as well as her intracardiac pressures. Status: Acute ICD Code: I21.19 (2) Acute congestive heart failure Qualifiers: Congestive heart failure type: systolic Qualified Code: I50.21 - Acute systolic (congestive) heart failure Plan: Given that she does not have significantly depressed LV ejection fraction but her LV ejection fraction has decreased in comparison to her previous echocardiograms. Given that, this is systolic heart failure. This is secondary to her ischemic mitral regurgitation. Status: Acute ICD Code: I50.9 (3) Mitral papillary muscle dysfunction Plan: Secondary to myocardial ischemia involving the inferolateral wall. Status: Acute ICD Code: I51.89 (4) Mitral valve regurgitation, ischemic Plan: She does have history of prior mitral regurgitation but she has certainly developed worsening mitral regurgitation secondary to ischemia/ infarct. Status: Acute ICD Code: I34.0 VTE Prophylaxis: Sub-Q Heparin (Unfractionated) VTE Mechanical Devices: Intermittant Pneumatic CD Resuscitation Status: CPR: Attempt Resuscitation Limited Interventions: Compressions, Cardioversion/Defibrillation, BiPAP, Medications and IV Fluid Time spent 80 minutes Copies to: Davin Galan MD, Oscar J MD Sep 14, 2016 16:18
--- NOTE | 2016-09-14 19:08 | PROG NOTE ---
[address] [address] PROGRESS NOTE PATIENT: VENANCIO GOMEZ : 1945 MR#: [id number] ADMIT: 09/12/2016 JOB ID: [id number] DATE: 09/14/2016 INFECTIOUS DISEASE FOLLOWUP NOTE: REASON FOR FOLLOWUP: C. difficile colitis with pulmonary infiltrates. INTERVAL HISTORY: Overnight the patient reports she reports she has felt a bit better. She has a good appetite today and her diarrhea has been confined to about three or four semi-formed stools. She has had no fevers or chills. Her breathing is slightly better, though she does have a dry nonproductive cough. No abdominal pain per se. PHYSICAL EXAMINATION: Reveals an afebrile woman temp 36.8, pulse 91, respiratory rate 18, blood pressure 174/112, saturating 90% on 4 L. Her mental status is clear. Oral cavity negative. Lungs with decreased breath sounds and rales at the bases. Cardiac tones without change. Regular rate and rhythm is noted this evening. Abdomen essentially benign. LABORATORIES: Include a white count 4500, with 80% segs, otherwise normal diff. Creatinine is 0.75. TSH 250 to suggesting hypothyroidism. Two procalcitonin levels are both about 0.15. Urinalysis basically negative. Micro: Stool for C. diff was positive. Sputum from the 16th basically no growth interestingly. A respiratory viral PCR study positive for RSV. Nasal screen positive for MRSA. Echocardiogram was done and showed new hypokinesis as was noted. Dr. Jacobs of cardiology consulted formally on the patient today. He believes that she had a recent myocardial infarction in the inferior lateral wall of the heart with subsequent congestive heart failure due to her mitral regurg and decreased systolic function. IMPRESSION: I agree with Dr. Jacobs in that I believe that her pulmonary infiltrates are largely of fluid overload/congestive heart failure, and perhaps there is a bit of viral pneumonia due to RSV mixed in, but I see no evidence for acute bacterial pneumonia. The patient had a recent episode of C. diff and her stool remains positive for C. diff by PCR with some continued loose stools. Whether this represents inadequately treated Clostridium difficile from before, or relapsed Clostridium difficile, or is just some post Clostridium difficile irritable bowel syndrome is impossible to determine at this time. RECOMMENDATIONS: 1. I will discontinue both the levofloxacin and cefepime she is receiving as these are likely to make her C. diff worse and very unlikely to have any benefit. 2. I would continue with the vancomycin 125 four times a day for two weeks to be followed by 125 twice a day for two weeks, then 125 once a day for two weeks, and then finally 125 every other day for two weeks. This total taper will take eight weeks and should dramatically reduce her chances of relapsing C. diff. 3. Unless she has an increase in her stool frequency and volume, I would not check any more stool for C. diff PCR, as it is likely to remain positive for months. 4. ID will go ahead and sign off at this time, but thank you very much for involving me in this interesting case.
--- NOTE | 2016-09-14 19:20 | NUR ---
BP/Pain/O2 Patient alert and oriented x3, pleasant and cooperative throughout shift. No chest pain reported during day shift, patient reports continued abdominal pain ranging from 5-9/10, intermittent relief with 2 tabs of [place] and PRN Reglan. BP 150s-170s/90-100s, MD aware, administered 2030 10mg lisinopril dose early per Dr. Jacobs orders in addition to 40mg Lasix IV. Patient SPO2 low to mid 90s on 3LNC. Tolerating PO intake well.
[2016-09-15] VITALS (12 sets, daily range): BP systolic 134–146; BP diastolic 78–107; PULSE 77–113; RESP 16–20; O2SAT 89–97
[2016-09-15] MEDS: HYDROcodone-APAP 5-325 mg Tablet PO PRN ×4 (00:02→21:13)
--- NOTE | 2016-09-15 01:56 | NUR ---
Scab Patient called nurse to room to report that she had "picked a scab" on her right lower extremity and that now the site is bleeding. Pressure applied to small open area; dressing of gauze and tegaderm applied. On recheck 15 minutes later wound is still oozing. Pressure again applied and heavier bandage of non-adherent pad, gauze, and hypafix applied. Discussed with patient the importance of not scratching or picking at skin while of heparin. Patient verbalized understanding. Continue to monitor.
[2016-09-15] MEDS: Vancomycin 125 mg Oral Capsule PO SCH ×4 (03:37→21:13)
[2016-09-15 04:07] LABS: BASOPHILS % (AUTO) 0.3 % (0-3); EOSINOPHILS % (AUTO) 0.3 % (0-5); MONOCYTES % (AUTO) 5.9 % (4-12); Mean Corpuscular Hemoglobin 33.7 pg (27.0-35.0); Mean Corpuscular Volume 98.1 fL (81-100); NEUTROPHILS % (AUTO) 83.3 % (40-74); Platelet Count 288 bil/L (150-400)
[2016-09-15] MEDS: Nitroglycerin 2% 1 Gm Ointment TOPICAL SCH ×4 (06:31→21:14)
[2016-09-15] MEDS: Albuterol-Ipratropium 3 mL Inhalation Solution NEB SCH ×4 (08:17→21:35)
[2016-09-15] MEDS: predniSONE 20 mg Tablet PO SCH ×2 (09:14→21:14)
[2016-09-15] MEDS: Furosemide 10 mg/mL 4 mL Inj IVPUSH SCH ×2 (09:28→21:14)
[2016-09-15] MEDS: Heparin 5,000 Unit/mL Inj IVPUSH PRN (15:48)
[2016-09-15] MEDS: ALPRAZolam 0.5 mg Tablet PO PRN (16:02)
--- NOTE | 2016-09-15 16:13 | PCM.PNMED ---
Subjective Date of Service Sep 15, 2016 Subjective Ms. No is a 71-year-old female with CAD, hypertension, COPD and systolic CHF presenting with shortness of breath. She has improved dyspnea and leg pain today. She is not able to lay flat yet though. Her cough has improved. She has diarrhea with loose, watery stools each time that she has to urinate. Exam Vital Signs Vital Sign - Last Date Time Temp Pulse Resp B/P Pulse Ox O2 Delivery O2 Flow Rate FiO2 09/15/16 16:10 36.5 84 20 143/100 92 Nasal Cannula 3.00 Intake and Output 09/14/16 09/14/16 09/15/16 Cumulative From/Thru 15:00 23:00 07:00 09/12/16 17:28 - 09/15/16 06:22 Intake Total 1096 ml 951 ml 4843 ml Output Total 1400 ml 2050 ml 4750 ml Balance -304 ml -1099 ml 93 ml Intake Oral 800 ml 700 ml 3190 ml IV Total 296 ml 251 ml 1653 ml Output Urine Total 1400 ml 2050 ml 4750 ml # Voids 5 5 # Bowel Movements 1 3 Exam General: Patient sitting upright in bed. Moderate distress, well-developed, well -nourished, appropriately interactive HEENT: Normocephalic, atraumatic. External ears without defect. Pupils equal, round, and reactive to light. Anicteric sclerae, moist conjunctivae, and no lid lag. Oropharynx free of erythema and cobble stoning with moist mucosa. Neck: Supple. No jugular venous distension. No lymphadenopathy or thyromegaly. Cardiovascular: Tachycardic. No murmurs, rubs, or gallops appreciated but difficult to appreciate with coarse lung sounds. Pulmonary: Diffuse coarse lung sounds bilaterally with prolonged end expiratory wheezes, improved compared to yesterday. Abdomen: Bowel tones present. Soft, nontender, nondistended. No hepatosplenomegaly or masses appreciated. Extremities: Mild bilateral lower extremity pitting edema to mid-calves. Skin: Normal temperature, turgor, and texture; no rash, ulcers, or subcutaneous nodules appreciated. Neurological: Cranial nerves grossly intact. Psychiatric: Normal mood and affect. Alert and oriented to person, place, and time. IVs and Medications Medications Reviewed: Medications were reviewed in detail Lab and Diagnostics Result Diagram: 09/15/16 0345 09/15/16 0345 X-Rays, CTs and MRIs PROCEDURE: X-RAY CHEST ONE VIEW, PORTABLE Date of Service: 09/12/16 1717 IMPRESSION: Right perihilar and left lower lobe pneumonia. Recommend followup to resolution. Approved by: Abbi Leigh M.D. on 09/12/2016 at 18:02 PROCEDURE: X-RAY CHEST ONE VIEW, PORTABLE IMPRESSION: 1. Mild cardiomegaly and pulmonary congestion. 2. The right perihilar and left lower lobe opacities may be superimposed resolving pneumonia. 3. Moderate-sized hiatal hernia. Approved by: Abbi Leigh M.D. on 09/13/2016 at 11:14 Cardiac Echo Impressions Echocardiogram Report Interpretation Summary Left ventricular size is at the upper limits of normal. The ejection fraction is estimated to be 55-60%.Compared to the prior exam, left ventricular function is slightly decreased. There is mid to distal posteriolateral wall severe hypokinesis (New). Right ventricular systolic function is mildly reduced. Suspect PMD of posterior mitral leaflet. There is severe mitral regurgitation. Compared to the prior echo study, there has been an increase in the severity of mitral regurgitation. The mitral regurgitant jet is eccentrically directed. There is mild tricuspid regurgitation. The right ventricular systolic pressure is estimated at 44 mmHg assuming a right atrial pressure of 8 mm Hg. Compared to the prior echo exam, there has been an increase in the severity of pulmonary hypertension. Reading Physician:PM Assessment & Plan Patient is a 71-year-old female with CAD, hypertension, COPD and systolic CHF presenting with shortness of breath and admitted for pneumonia. 1. Chest pain, acute. Present on admission. Improved. -Probable NSTEMI -Troponin downtrending but continues to be elevated. Patient has intermittent chest pain. Repeat EKG during active chest pain shows sinus tachycardia with premature atrial contractions and inferior old infarct. No acute ST-elevation or depression. -CK-MB 4.5 within normal limits -Echocardiogram shows a new area of hypokinesis -Echocardiogram and chest x-ray as above. Repeat chest x-ray did not show mediastinal widening. -Cardiac catheterization with coronary angiogram in 02/2014 shows severe mitral regurgitation and normal coronary arteries -Cardiology consulted and following. Their time and recommendations are appreciated. -Started on ASA 81 mg daily, clopidogrel 75 mg once daily, atorvastatin 40 mg once daily at bedtime -Heparin drip per protocol -Furosemide IV 40 mg bid -Likely, a cardiac catheterization with coronary angiogram on Saturday 2. Systolic CHF, acute on chronic. Present on admission. Active. -Echocardiogram from 10/2015 shows estimated LV EF to be 55-60%, which is slightly decreased compared to prior study and worsening pulmonary hypertension -Pro-BNP elevated 5070 -Echocardiogram as above 3. Acute hypoxic respiratory failure. Present on admission. Active -Oxygen saturation 88% while on nasal cannula with 5 liters of oxygen during hospital -Etiology likely due to COPD exacerbation, CHF exacerbation, and RSV infection -D-dimer<0.05 -Supplemental oxygen as needed and nebulizer treatments as below 4. COPD, chronic with acute exacerbation. Present on admission. Active. -DuoNeb scheduled -Albuterol as needed -Added prednisone 40 mg BID 5. Acute RSV bronchitis. Present on admission. Active -RSV positive, possible viral bronchitis -Initially, presumed health care associated pneumonia given recent hospitalization, stay at [facility] -Chest x-ray reads perihilar and left lower lobe infiltrate -Legionella ur antigen and Strep pneumo ur antigen and influenza are negative -MRSA screen positive, pt on vancomycin for recurrent C.diff toxin as above -Sputum culture and blood culture show no growth to date -Stopped cefepime and levofloxacin for now but may stop today as her clinical picture has not worsened. Stopped IV vancomycin and switched to PO vancomycin per infectious disease for recurrent C. difficile toxin -Infectious disease consulted and following. His time and recommendations are appreciated. -RSV positive on droplet precautions 6. Acute sepsis. Present on admission. Improving. -Met criteria with HR (131), RR (30) and evidence of pulmonary source of infection, likely HCAP -UA negative for nitrites and leukocyte esterase -Lactic acid 2.4 initially but decreased to 1.3 today. Procalcitonin 0.18 yesterday. -IV fluids given in the emergency department 7. Recurrent clostridium difficile toxin. Present on admission. -Patient reports continued loose watery stools this morning -Patient on vancomycin by mouth as below. 8. Hypertension, chronic. Present on admission. -Follow vitals -See above for #5 9. Mitral regurgitation, chronic (moderate to severe). Present on admission -Likely contributing to #2 above -Worsening MR on last echo from 10/2015 -Echocardiogram as above. 10. Hypothyroidism, chronic. Present on admission -Home dose of levothyroxine unknown but from discharge instructions in 07/2016 she was taking 50 mcg of levothyroxine once daily, which has been resumed -TSH remains elevated 11. GERD, chronic. Present on admission -Hiatal hernia on chest x-ray and likely contributing to her chest pain Patient Status: Patient is admitted under inpatient status with expected length of stay greater than 2 midnights due to severity of presenting symptoms, risk of adverse event, and complexity of treatment plan. VTE Prophylaxis: Sub-Q Heparin (Unfractionated) VTE Mechanical Devices: Intermittant Pneumatic CD Resuscitation Status: CPR: Attempt Resuscitation Limited Interventions: Compressions, Cardioversion/Defibrillation, BiPAP, Medications and IV Fluid Time spent 30 min Attending Statement Patient seen and examined with housestaff. Agree with all attached documentation. Stephanie Diaz DO Sep 15, 2016 16:13 Jassi Vaughan MD Sep 17, 2016 10:09
--- NOTE | 2016-09-15 17:41 | PCM.PNCARD ---
Subjective Date of service Sep 15, 2016 Chief Complaint SOB History of Present Illness This is a 71 year female with history of minor moderate mitral regurgitation but no prior history of LV systolic heart failure. The patient has had a prior heart catheterization in 2013 which showed normal coronaries angiographically. The patient was recently hospitalized here at [facility]. She was hospitalized for C. difficile colitis. She has been recently seen by infectious disease and is unsure if she has C. difficile at this moment. She has been treated empirically for it at this time. She was also seen by ID to see if she needs to be treated for atypical pneumonia. Her chest x-ray on admission showed a right middle lobe infiltrate suspicious for pneumonia. However it is noted that her pro BNP was significantly elevated and she does have history of orthopnea since her discharge. The patient states that since she was discharged she has had increased dyspnea with PND and orthopnea and lower extremity edema. The patient denies any chest pain. However her troponins here have become positive which is the first time they have been positive. The patient's EKG also shows new Q waves in the inferior leads in comparison to her previous EKGs. The patient's echocardiogram showed stable LV ejection fraction but has decreased in comparison to her prior echocardiogram. She has worsening mitral regurgitation with at least moderate to severe eccentric jet and increased pulmonary hypertension. There is evidence of LV wall motion abnormalities along the inferolateral wall causing papillary muscle dysfunction secondary to ischemia. I walked into the room and the patient was having complaints of dyspnea at rest and wanted respiratory treatment she does have history of COPD. Unfortunately she continues to smoke. Constitutional: Denies: Chills, Fever ENT: Denies: Ear Pain Eyes: Denies: Blurred Vision Cardiovascular: Reports: SOB while laying flat, Denies: Chest Pain Respiratory: Reports: Cough, SOB with Exertion, Shortness of Breath Gastrointestinal: Denies: Abdominal Pain, Blood in stool (red) Genitourinary: Denies: No burning or pain with urination Musculoskeletal: Denies: Ankle Pain, Knee Pain Neurological: Denies: Change in LOC, Confusion, Dizziness Endocrine: Reports: Blood Glucose Review Exam Vital Signs Vital Sign - Last Date Time Temp Pulse Resp B/P Pulse Ox O2 Delivery O2 Flow Rate FiO2 09/15/16 17:23 85 18 91 Nasal Cannula 3.00 09/15/16 16:10 36.5 143/100 Intake and Output 09/14/16 09/14/16 09/15/16 Cumulative From/Thru 15:00 23:00 07:00 09/12/16 17:28 - 09/15/16 06:22 Intake Total 1096 ml 951 ml 4843 ml Output Total 1400 ml 2050 ml 4750 ml Balance -304 ml -1099 ml 93 ml Intake Oral 800 ml 700 ml 3190 ml IV Total 296 ml 251 ml 1653 ml Output Urine Total 1400 ml 2050 ml 4750 ml # Voids 5 5 # Bowel Movements 1 3 General: Pleasant Cooperative Skin: Warm & dry to touch Head: Normocephalic Eye: EOMS intact Ears, Nose & Throat: Ears no gross abnormalities Nose no gross abnormalities Neck: Nuchal obesity:JVP assess difficult Cardiac: Regular rhythm Normal S1 and S2 Pulses: Both femoral pulses 2+ Abdomen: Soft, non-distended, non-tender Obese Suprapubic pannus Extremities: Warm Edema Erythema Neurological: Alert & oriented Psychological: Affect & interaction appropriate Lab and Diagnostics Labs CBC Test 09/12/16 17:40 09/15/16 03:45 Hold Purple Top Tube Received (Received) White Blood Count 3.2th/mm3 (3.8-10.1) Red Blood Count 2.70mil/mm3 (3.90-5.20) Hemoglobin 9.1g/dL (12.0-15.6) Hematocrit 26.5% (35.0-46.0) Mean Corpuscular Volume 98.1fL (81-100) Mean Corpuscular Hemoglobin 33.7pg (27.0-35.0) Mean Corpuscular Hemoglobin Concent 34.3% (32.0-37.0) Red Cell Distribution Width 19.1% (12.3-15.4) Platelet Count 288bil/L (150-400) Neutrophils (%) (Auto) 83.3% (40-74) Lymphocytes (%) (Auto) 9.9% (14-46) Monocytes (%) (Auto) 5.9% (4-12) Eosinophils (%) (Auto) 0.3% (0-5) Basophils (%) (Auto) 0.3% (0-3) CMP Test 09/12/16 17:05 09/12/16 17:40 09/12/16 23:00 09/13/16 05:14 Pro-B-Type Natriuretic Peptide 5070pg/mL Hold Red Top Tube Received Hold [place] Top Tube Received Hold [place] Top Tube Received Lactic Acid Level 1.3mmol/L Procalcitonin 0.18ng/mL Test 09/13/16 11:35 09/14/16 02:30 09/14/16 08:32 09/15/16 03:45 Total Creatine Kinase 38U/L Creatine Kinase MB 4.5ng/mL Creatine Kinase MB % % Thyroid Stimulating Hormone (TSH) 52.350uIU/mL Troponin T 0.058ug/L Sodium Level 133mEq/L Potassium Level 4.2mEq/L Chloride Level 93mEq/L Carbon Dioxide Level 29mmol/L Blood Urea Nitrogen 14mg/dL Creatinine 0.82mg/dL Estimat Glomerular Filtration Rate 99mL/min Glucose Level 138mg/dL Calcium Level 8.9mg/dL Total Bilirubin 0.3mg/dL Aspartate Amino Transf (AST/SGOT) 25U/L Alanine Aminotransferase (ALT/SGPT) 15U/L Alkaline Phosphatase 149U/L Total Protein 6.1g/dL Albumin 3.0g/dL Result Diagram: 09/15/16 0345 09/15/16344 Assessment & Plan Problems: (1) Acute myocardial infarction of inferolateral wall Plan: Unfortunately this patient appears to be suffering from a recent acute myocardial infarction of the inferolateral wall probably involving the left circumflex or right coronary artery. She has developed acute onset of papillary muscle dysfunction which is causing her to have significant mitral regurgitation and acute congestive heart failure secondary to severe mitral regurgitation. I certainly agree with Dr. Veronica that this is not pneumonia but atypical presentation of congestive heart failure secondary to an eccentric mitral regurgitation. At this time will start on intravenous Lasix since she is still hypervolemic. We will also like to increase her lisinopril and continue with Nitropaste for afterload reducing. Once she is more euvolemic and we can consider starting her on low-dose beta raina therapy. I am a little bit surprised that she has developed acute ischemia since her coronary angiogram just 2 years ago was completely normal. I concurred to start IV heparin and I would continue this for at least 48 hours. She has been started on aspirin and atorvastatin. When she is more euvolemic and is able to lie in supine position then we can proceed with heart catheterization to assess her coronaries as well as her intracardiac pressures. Status: Acute ICD Code: I21.19 (2) Acute congestive heart failure Qualifiers: Congestive heart failure type: systolic Qualified Code: I50.21 - Acute systolic (congestive) heart failure Plan: Given that she does not have significantly depressed LV ejection fraction but her LV ejection fraction has decreased in comparison to her previous echocardiograms. Given that, this is systolic heart failure. This is secondary to her ischemic mitral regurgitation. Status: Acute ICD Code: I50.9 (3) Mitral papillary muscle dysfunction Plan: Secondary to myocardial ischemia involving the inferolateral wall. Status: Acute ICD Code: I51.89 (4) Mitral valve regurgitation, ischemic Plan: She does have history of prior mitral regurgitation but she has certainly developed worsening mitral regurgitation secondary to ischemia/ infarct. Status: Acute ICD Code: I34.0 VTE Prophylaxis: Sub-Q Heparin (Unfractionated) VTE Mechanical Devices: Intermittant Pneumatic CD Resuscitation Status: CPR: Attempt Resuscitation Limited Interventions: Compressions, Cardioversion/Defibrillation, BiPAP, Medications and IV Fluid Time spent 30 minutes Dave Jacobs MD Sep 15, 2016 17:41
--- NOTE | 2016-09-15 17:58 | NUR ---
Pain: P: Patient complains of continual abdominal pain 8/10 with increased anxiety. I: Administered oral pain medications, oral antianxiety medications, and nicotine patch. Encouraged use of K-pad. E: Pain lowered to 7/10. Patient stated pain overall better but had to grab left side upon standing. But was able to tolerate standing lower extremity range of motion exercises. Anxiety has lessened to tolerable level. Patient sitting in bed, bed lowered and locked, call light within reach. Will continue to monitor.
[2016-09-15] MEDS ORDERED: SERT50TA9 (21:10)
[2016-09-16] VITALS (13 sets, daily range): BP systolic 129–164; BP diastolic 75–111; PULSE 64–107; RESP 16–20; O2SAT 88–96
[2016-09-16] MEDS: Vancomycin 125 mg Oral Capsule PO SCH ×4 (03:01→20:10)
[2016-09-16] MEDS: ALPRAZolam 0.5 mg Tablet PO PRN (03:23)
[2016-09-16 04:31] LABS: BASOPHILS % (AUTO) 0.3 % (0-3); EOSINOPHILS % (AUTO) 0 % (0-5); MONOCYTES % (AUTO) 6.4 % (4-12); Mean Corpuscular Hemoglobin 34.1 pg (27.0-35.0); Mean Corpuscular Volume 97.8 fL (81-100); NEUTROPHILS % (AUTO) 78.7 % (40-74); Platelet Count 320 bil/L (150-400)
[2016-09-16 04:53] LABS: Magnesium 1.9 mg/dL (1.6-2.6)
[2016-09-16] MEDS: Heparin 5,000 Unit/mL Inj IVPUSH PRN (05:26)
--- NOTE | 2016-09-16 05:33 | NUR ---
Heparin/Muscle cramps Patient continues on cardiac heparin protocol. Last PTT 46.6; 1000 unit bolus given. Current rate 975 units/hour. Patient monitored for bleeding. Patient experienced "charley horse" cramps in her left forearm at 0300; patient stated that this has happened before when her potassium has gotten low. Morning labs show potassium 4.2, magnesium 1.9. Continue to monitor.
[2016-09-16] MEDS: Nitroglycerin 2% 1 Gm Ointment TOPICAL SCH ×4 (06:13→20:11)
[2016-09-16] MEDS: Furosemide 10 mg/mL 4 mL Inj IVPUSH SCH ×2 (08:59→20:11)
[2016-09-16] MEDS: predniSONE 20 mg Tablet PO SCH (08:59)
[2016-09-16] MEDS: HYDROcodone-APAP 5-325 mg Tablet PO PRN ×3 (09:00→20:11)
[2016-09-16] MEDS: Albuterol-Ipratropium 3 mL Inhalation Solution NEB SCH ×4 (09:10→20:53)
--- NOTE | 2016-09-16 15:17 | PCM.PNMED ---
Subjective Date of Service Sep 16, 2016 Subjective Overnight: No acute events overnight Today: Patient reports some continuing chest pain and shortness of breath on exertion. She reports chills overnight, edema, and arm cramps. Her diarrhea stopped last evening, and she denies any nausea, vomiting, or abdominal pain. She reports her orthopnea is improving. Exam Vital Signs Vital Sign - Last Date Time Temp Pulse Resp B/P Pulse Ox O2 Delivery O2 Flow Rate FiO2 09/16/16 13:27 85 16 90 Nasal Cannula 3.00 09/16/16 12:46 37.1 148/88 Intake and Output 09/15/16 09/15/16 09/16/16 Cumulative From/Thru 15:00 23:00 07:00 09/12/16 17:28 - 09/16/16 06:10 Intake Total 1527 ml 581 ml 6951 ml Output Total 1400 ml 2000 ml 8150 ml Balance 127 ml -1419 ml -1199 ml Intake Oral 1300 ml 363 ml 4853 ml IV Total 227 ml 218 ml 2098 ml Output Urine Total 1400 ml 2000 ml 8150 ml # Voids 5 # Bowel Movements 6 9 Exam General: No acute distress, well-developed, well-nourished, appropriately interactive HEENT: Normocephalic, atraumatic. External ears without defect. Pupils equal, round, and reactive to light. Anicteric sclerae, moist conjunctivae, and no lid lag. Neck: Supple. No jugular venous distension. No lymphadenopathy or thyromegaly. Cardiovascular: Regular rate and rhythm. Systolic murmur present. Pulmonary: Prolonged end expiratory wheezes with crackles noted on exam. Abdomen: Bowel tones present. Soft, nontender, nondistended. No hepatosplenomegaly or masses appreciated. Extremities: Mild bilateral lower extremity pitting edema to mid-calves. Skin: Normal temperature, turgor, and texture; no rash, ulcers, or subcutaneous nodules appreciated. Neurological: Cranial nerves grossly intact. Psychiatric: Normal mood and affect. Alert and oriented to person, place, and time. Lab and Diagnostics Result Diagram: 09/16/16 0400 09/16/16 0400 X-Rays, CTs and MRIs PROCEDURE: X-RAY CHEST ONE VIEW, PORTABLE Date of Service: 09/12/16 2100 IMPRESSION: Right perihilar and left lower lobe pneumonia. Recommend followup to resolution. Approved by: Abbi Leigh M.D. on 09/12/2016 at 18:02 PROCEDURE: X-RAY CHEST ONE VIEW, PORTABLE IMPRESSION: 1. Mild cardiomegaly and pulmonary congestion. 2. The right perihilar and left lower lobe opacities may be superimposed resolving pneumonia. 3. Moderate-sized hiatal hernia. Approved by: Abbi Leigh M.D. on 09/13/2016 at 11:14 Cardiac Echo Impressions Echocardiogram Report Interpretation Summary Left ventricular size is at the upper limits of normal. The ejection fraction is estimated to be 55-60%.Compared to the prior exam, left ventricular function is slightly decreased. There is mid to distal posteriolateral wall severe hypokinesis (New). Right ventricular systolic function is mildly reduced. Suspect PMD of posterior mitral leaflet. There is severe mitral regurgitation. Compared to the prior echo study, there has been an increase in the severity of mitral regurgitation. The mitral regurgitant jet is eccentrically directed. There is mild tricuspid regurgitation. The right ventricular systolic pressure is estimated at 44 mmHg assuming a right atrial pressure of 8 mm Hg. Compared to the prior echo exam, there has been an increase in the severity of pulmonary hypertension. Reading Physician:PM Assessment & Plan Patient is a 71-year-old female with CAD, hypertension, COPD and systolic CHF presenting with shortness of breath and admitted for pneumonia. 1. Acute NSTEMI. Present on admission. Improved. -Troponin downtrending but continues to be elevated. Patient has intermittent chest pain. Repeat EKG during active chest pain shows sinus tachycardia with premature atrial contractions and inferior old infarct. No acute ST-elevation or depression. Cardiac catheterization with coronary angiogram in 02/2014 shows severe mitral regurgitation and normal coronary arteries. Echocardiogram shows slightly worsened EF (55-60), new severe posterolateral wall hypokinesis, increase in MR, and increase in pulm HTN. -Cardiology consulted and following. Their time and recommendations are appreciated. -Started on ASA 81 mg daily -Clopidogrel 75 mg daily -Atorvastatin 40 mg qhs -Heparin drip per protocol -Furosemide IV 40 mg bid -Likely, a cardiac catheterization with coronary angiogram on Saturday 2. Systolic CHF, acute on chronic. Present on admission. Active. -Echocardiogram as above. Pro-BNP elevated 5070. CXR showed mild cardiomegaly and pulmonary congestion. Secondary to severely worsened mitral regurgitation -Continue lisinopril and carvedilol 3. Acute hypoxic respiratory failure. Present on admission. Active -Oxygen saturation 88% while on nasal cannula with 5 liters of oxygen during hospital -Etiology likely due to COPD exacerbation, CHF exacerbation, and RSV infection -D-dimer<0.05 -Supplemental oxygen as needed and nebulizer treatments as below 4. COPD, chronic with acute exacerbation. Present on admission. Active. -DuoNeb scheduled -Albuterol as needed -Added prednisone 40 mg BID 5. Acute RSV bronchitis. Present on admission. Active -RSV positive, possible viral bronchitis. Chest x-ray reads perihilar and left lower lobe infiltrate. Legionella ur antigen and Strep pneumo ur antigen and influenza are negative. MRSA screen positive. Initially, presumed health care associated pneumonia given recent hospitalization, stay at [facility] -Sputum culture and blood culture show no growth to date -Stopped cefepime and levofloxacin and IV vancomycin -Infectious disease consulted and following. His time and recommendations are appreciated. -RSV positive on droplet precautions 6. Acute sepsis. Present on admission. Improving. -Met criteria with HR (131), RR (30) and evidence of pulmonary source of infection as well as C diff colitis -UA negative for nitrites and leukocyte esterase -Lactic acid 2.4 initially but decreased to 1.3 today. Procalcitonin 0.18 yesterday. -IV fluids given in the emergency department 7. Recurrent clostridium difficile toxin. Present on admission. -Patient reports continued loose watery stools this morning -Patient on vancomycin PO 8. Hypertension, chronic. Present on admission. -Follow vitals -See above for #5 9. Mitral regurgitation, chronic (moderate to severe). Present on admission -Likely contributing to #2 above -Worsening MR on last echo from 10/2015 -Echocardiogram as above. 10. Hypothyroidism, chronic. Present on admission -Home dose of levothyroxine unknown but from discharge instructions in 07/2016 she was taking 50 mcg of levothyroxine once daily, which has been resumed -TSH remains elevated 11. GERD, chronic. Present on admission -Hiatal hernia on chest x-ray and likely contributing to her chest pain Patient Status: Patient is admitted under inpatient status with expected length of stay greater than 2 midnights due to severity of presenting symptoms, risk of adverse event, and complexity of treatment plan. VTE Prophylaxis: Sub-Q Heparin (Unfractionated) VTE Mechanical Devices: Intermittant Pneumatic CD Resuscitation Status: CPR: Attempt Resuscitation Limited Interventions: Compressions, Cardioversion/Defibrillation, BiPAP, Medications and IV Fluid Time spent 30 min Attending Statement Patient seen and examined with housestaff. Agree with all attached documentation. Neri Pittman Sep 16, 2016 15:17 Jassi Vaughan MD Sep 17, 2016 10:16
--- NOTE | 2016-09-16 16:02 | NUR ---
DARNELL signed [facility]
--- NOTE | 2016-09-16 18:33 | PCM.PNCARD ---
Subjective Date of service Sep 16, 2016 Chief Complaint SOB Constitutional: Denies: Chills, Fever ENT: Denies: Ear Discharge, Ear Pain Eyes: Denies: Blurred Vision Cardiovascular: Reports: SOB on Exertion, Denies: Chest Pain, SOB while laying flat Respiratory: Reports: SOB with Exertion, Shortness of Breath, Denies: Cough, Cough with bloody sputum Gastrointestinal: Denies: Abdominal Pain Neurological: Denies: Confusion, Dizziness Endocrine: Reports: Blood Glucose Review Exam Vital Signs Vital Sign - Last Date Time Temp Pulse Resp B/P Pulse Ox O2 Delivery O2 Flow Rate FiO2 09/16/16 17:18 94 16 90 Nasal Cannula 3.00 09/16/16 15:17 36.4 150/96 Intake and Output 09/15/16 09/15/16 09/16/16 Cumulative From/Thru 15:00 23:00 07:00 09/12/16 17:28 - 09/16/16 06:10 Intake Total 1527 ml 581 ml 6951 ml Output Total 1400 ml 2000 ml 8150 ml Balance 127 ml -1419 ml -1199 ml Intake Oral 1300 ml 363 ml 4853 ml IV Total 227 ml 218 ml 2098 ml Output Urine Total 1400 ml 2000 ml 8150 ml # Voids 5 # Bowel Movements 6 9 General: Pleasant Cooperative Neurological: Alert & oriented Lab and Diagnostics Labs CBC Test 09/12/16 17:40 09/16/16 04:00 Hold Purple Top Tube Received (Received) White Blood Count 3.6th/mm3 (3.8-10.1) Red Blood Count 2.73mil/mm3 (3.90-5.20) Hemoglobin 9.3g/dL (12.0-15.6) Hematocrit 26.7% (35.0-46.0) Mean Corpuscular Volume 97.8fL (81-100) Mean Corpuscular Hemoglobin 34.1pg (27.0-35.0) Mean Corpuscular Hemoglobin Concent 34.8% (32.0-37.0) Red Cell Distribution Width 19.2% (12.3-15.4) Platelet Count 320bil/L (150-400) Neutrophils (%) (Auto) 78.7% (40-74) Lymphocytes (%) (Auto) 14.3% (14-46) Monocytes (%) (Auto) 6.4% (4-12) Eosinophils (%) (Auto) 0% (0-5) Basophils (%) (Auto) 0.3% (0-3) CMP Test 09/12/16 17:05 09/12/16 17:40 09/12/16 23:00 09/13/16 05:14 Pro-B-Type Natriuretic Peptide 5070pg/mL Hold Red Top Tube Received Hold [place] Top Tube Received Hold Alej[place] Top Tube Received Lactic Acid Level 1.3mmol/L Procalcitonin 0.18ng/mL Test 09/13/16 11:35 09/14/16 02:30 09/14/16 08:32 09/16/16 04:00 Total Creatine Kinase 38U/L Creatine Kinase MB 4.5ng/mL Creatine Kinase MB % % Thyroid Stimulating Hormone (TSH) 52.350uIU/mL Troponin T 0.058ug/L Sodium Level 134mEq/L Potassium Level 4.2mEq/L Chloride Level 92mEq/L Carbon Dioxide Level 30mmol/L Blood Urea Nitrogen 16mg/dL Creatinine 0.77mg/dL Estimat Glomerular Filtration Rate 106mL/min Glucose Level 132mg/dL Calcium Level 9.1mg/dL Magnesium Level 1.9mg/dL Total Bilirubin 0.3mg/dL Aspartate Amino Transf (AST/SGOT) 24U/L Alanine Aminotransferase (ALT/SGPT) 15U/L Alkaline Phosphatase 149U/L Total Protein 6.4g/dL Albumin 3.2g/dL Result Diagram: 09/16/160 09/16/16 040 Assessment & Plan Problems: (1) Acute myocardial infarction of inferolateral wall Plan: Patient will be schedule for a LHC with possible PCI. I have discussed the case with Dr. Deleon and he will perform the LHC tomorrow at the end of the day depending on the manager laboratory schedule. The manager laboratory schedule will be very busy tomorrow so I have informed her that there is a possibility that she may not have it until Saturday. Since she does have C. diff. she will need to be at the end of the day. She has had this procedure in the recent past so she understands the risks and benefits of procedure. She will be reloaded with Plavix 300 mg x1 and her Lasix and spironolactone will need to be placed on hold tomorrow. I have also scheduled her IV heparin to be stopped at midnight since she has had it for >48 hours and I don't want to potentially develop HIT prior to the procedure. I have started her on carvedilol since she is more euvolemic and I have increased her lisinopril to 20 mg BID since she continues to be hypertensive. Status: Acute ICD Code: I21.19 (2) Acute congestive heart failure Qualifiers: Congestive heart failure type: systolic Qualified Code: I50.21 - Acute systolic (congestive) heart failure Plan: Given that she does not have significantly depressed LV ejection fraction but her LV ejection fraction has decreased in comparison to her previous echocardiograms. Given that, this is systolic heart failure. This is secondary to her ischemic mitral regurgitation. Status: Resolved ICD Code: I50.9 (3) Mitral papillary muscle dysfunction Plan: Secondary to myocardial ischemia involving the inferolateral wall. Status: Acute ICD Code: I51.89 (4) Mitral valve regurgitation, ischemic Plan: She does have history of prior mitral regurgitation but she has certainly developed worsening mitral regurgitation secondary to ischemia/ infarct. Status: Acute ICD Code: I34.0 Cardiology Plan: Catherization VTE Prophylaxis: Sub-Q Heparin (Unfractionated) VTE Mechanical Devices: Intermittant Pneumatic CD Resuscitation Status: CPR: Attempt Resuscitation Limited Interventions: Compressions, Cardioversion/Defibrillation, BiPAP, Medications and IV Fluid Time spent 20 minutes Dave Jacobs MD Sep 16, 2016 18:33
--- NOTE | 2016-09-16 19:20 | NUR ---
CHEST PAIN Pt's stating having Chest pain /. Sampler Radioactive Waste made aware. Reassessed pt, pt stating pain subsiding however wanting norco for her abdominal pain. report given to oncoming RN.
[2016-09-16] MEDS: Sodium Chloride LOK Flush 10 mL Syringe IVFLUSH SCH (23:48)
[2016-09-17] VITALS (18 sets, daily range): BP systolic 109–167; BP diastolic 60–112; PULSE 66–110; RESP 16–24; O2SAT 90–97
--- NOTE | 2016-09-17 | NUR ---
Heparin PTT at 2335 52.9. Patient's heparin infusion discontinued at 2355; per Dr. Jacobs's note on the afternoon of 09/16/16, heparin to be discontinued at midnight to avoid risk of HIT prior to planned cardiac cath on 09/17/16. Patient NPO at midnight. Continue to monitor.
[2016-09-17] MEDS: Vancomycin 125 mg Oral Capsule PO SCH ×4 (02:50→19:53)
[2016-09-17 03:30] LABS: BASOPHILS % (AUTO) 0.7 % (0-3); EOSINOPHILS % (AUTO) 0.5 % (0-5); MONOCYTES % (AUTO) 12.2 % (4-12); Mean Corpuscular Hemoglobin 33.6 pg (27.0-35.0); Mean Corpuscular Volume 98.1 fL (81-100); NEUTROPHILS % (AUTO) 51.9 % (40-74); Platelet Count 332 bil/L (150-400)
[2016-09-17 04:08] LABS: TROPONIN T 0.066 ug/L (0.0-0.011)
[2016-09-17] MEDS ORDERED: 0.9% Sodium Chloride 1,000 ML IV ONE (06:00)
[2016-09-17] MEDS: HYDROcodone-APAP 5-325 mg Tablet PO PRN ×3 (06:53→22:02)
[2016-09-17] MEDS: Nitroglycerin 2% 1 Gm Ointment TOPICAL SCH ×4 (06:56→19:54)
[2016-09-17] MEDS: Albuterol-Ipratropium 3 mL Inhalation Solution NEB SCH ×4 (07:43→20:01)
[2016-09-17] MEDS: Furosemide 10 mg/mL 4 mL Inj IVPUSH SCH ×2 (08:30→19:54)
[2016-09-17] MEDS: predniSONE 20 mg Tablet PO SCH ×2 (08:50→19:53)
[2016-09-17] MEDS: Sodium Chloride LOK Flush 10 mL Syringe IVFLUSH SCH ×3 (08:51→23:48)
[2016-09-17] MEDS: ALPRAZolam 0.5 mg Tablet PO PRN (14:46)
[2016-09-17] MEDS ORDERED: Heparin 5,000 Units/500 mL NS Premix IV ONE ×3 (14:56→16:33)
[2016-09-17] MEDS ORDERED: 0.9% Sodium Chloride 1,000 ML ONE (14:56)
[2016-09-17] MEDS ORDERED: Heparin 1,000 Units/500 mL NS Premix IV ONE (14:56)
--- NOTE | 2016-09-17 15:20 | NUR ---
Pt to cath lab nurse pt left for cath lab nurse at about 1520. pedal pulses marked, Benadryl given per MD's order. Pt asking for Xanax, 0.5mg given. Ongoing care.
[2016-09-17] MEDS ORDERED: fentaNYL-PF 50 mCg/mL 2 mL Inj ONE (15:36)
[2016-09-17] MEDS ORDERED: Heparin 1,000 Unit/mL 10 mL Inj ONE (16:00)
[2016-09-17] MEDS ORDERED: Nitroglycerin 50,000 mcg/250 mL D5W Premix IV ONE (16:00)
--- NOTE | 2016-09-17 17:15 | NUR ---
Social Work Note: Continued Discharge Planning Data& Assessment: SW attempted to meet with pt at bedside to confirm discharge plan and assess for any unmet needs. Pt was out of her room in the seed laboratory technician. SW to follow up with pt tomorrow regarding discharge planning. SW to continue to follow. Plan: Anticipated discharge home via POV when medically ready. SW to follow up with pt tomorrow regarding discharge planning. SW to continue to follow. [facility]
--- NOTE | 2016-09-17 18:48 | NUR ---
Received/Recovery/Transfer Received from center medical and lab director about 1650. Right groin without hematoma. Very scant serosanguineous drainage on dressing, marked, no change in hour before transfer. VSS. Tele SR. C/O back pain. Vicodin 2 po given and stated helpful. Attempted bedpan but unable. C-diff precautions maintained. Taking po well. Report to Hazel Apodaca RN about 1820. Transferred to 2030 via bed with in no distress by staff at 1840.
--- NOTE | 2016-09-17 19:38 | NUR ---
Post Cath Pt back from [facility] at about 185. Per JUAREZ RN pt off Bedrest at 1850. Report given to oncoming RN.
--- NOTE | 2016-09-17 20:06 | PCM.PNMED ---
Subjective Date of Service Sep 17, 2016 Subjective Today: She reports that she had trouble sleeping last night due to a cramp in her right side and needing to get up to urinate throughout the night. Her dyspnea has greatly improved. She has edema in her legs but it has improved. She does not have chest pain. Exam Vital Signs Vital Sign - Last Date Time Temp Pulse Resp B/P Pulse Ox O2 Delivery O2 Flow Rate FiO2 09/17/16 18:00 66 17 148/73 09/17/16 18:00 96 Nasal Cannula 3.00 09/17/16 16:31 Intake and Output 09/16/16 09/16/16 09/17/16 Cumulative From/Thru 15:00 23:00 07:00 09/12/16 17:28 - 09/17/16 06:36 Intake Total 1080 ml 330 ml 8361 ml Output Total 600 ml 3300 ml 61005 ml Balance 480 ml -2970 ml -3689 ml Intake Oral 800 ml 300 ml 5953 ml IV Total 280 ml 30 ml 2408 ml Output Urine Total 600 ml 900 ml 9650 ml Urine/Stool Mix 2400 ml 2400 ml # Voids 1 4 10 # Bowel Movements 3 12 Exam General: No acute distress, well-developed, well-nourished, appropriately interactive HEENT: Normocephalic, atraumatic. External ears without defect. Pupils equal, round, and reactive to light. Anicteric sclerae, moist conjunctivae, and no lid lag. Neck: Supple. No jugular venous distension. No lymphadenopathy or thyromegaly. Cardiovascular: Regular rate and rhythm. Systolic murmur present. Pulmonary: Mild, prolonged end expiratory wheezes noted on exam. Abdomen: Bowel tones present. Soft, nontender, nondistended. No hepatosplenomegaly or masses appreciated. Extremities: Mild bilateral lower extremity pitting edema to mid-calves. Skin: Normal temperature, turgor, and texture; no rash, ulcers, or subcutaneous nodules appreciated. Neurological: Cranial nerves grossly intact. Psychiatric: Normal mood and affect. Alert and oriented to person, place, and time. IVs and Medications Medications Reviewed: Medications were reviewed in detail Lab and Diagnostics Result Diagram: 09/17/165 09/17/165 X-Rays, CTs and MRIs PROCEDURE: X-RAY CHEST ONE VIEW, PORTABLE Date of Service: 09/12/16 1718 IMPRESSION: Right perihilar and left lower lobe pneumonia. Recommend followup to resolution. Approved by: Abbi Leigh M.D. on 09/12/2016 at 18:02 PROCEDURE: X-RAY CHEST ONE VIEW, PORTABLE IMPRESSION: 1. Mild cardiomegaly and pulmonary congestion. 2. The right perihilar and left lower lobe opacities may be superimposed resolving pneumonia. 3. Moderate-sized hiatal hernia. Approved by: Abbi Leigh M.D. on 09/13/2016 at 11:14 Cardiac Echo Impressions Echocardiogram Report Interpretation Summary Left ventricular size is at the upper limits of normal. The ejection fraction is estimated to be 55-60%.Compared to the prior exam, left ventricular function is slightly decreased. There is mid to distal posteriolateral wall severe hypokinesis (New). Right ventricular systolic function is mildly reduced. Suspect PMD of posterior mitral leaflet. There is severe mitral regurgitation. Compared to the prior echo study, there has been an increase in the severity of mitral regurgitation. The mitral regurgitant jet is eccentrically directed. There is mild tricuspid regurgitation. The right ventricular systolic pressure is estimated at 44 mmHg assuming a right atrial pressure of 8 mm Hg. Compared to the prior echo exam, there has been an increase in the severity of pulmonary hypertension. Reading Physician:PM Assessment & Plan Patient is a 71-year-old female with CAD, hypertension, COPD and systolic CHF presenting with shortness of breath and admitted for pneumonia. 1. Acute NSTEMI. Present on admission. Improved. -Troponin downtrending but continues to be elevated. Patient has intermittent chest pain. Repeat EKG during active chest pain shows sinus tachycardia with premature atrial contractions and inferior old infarct. No acute ST-elevation or depression. Cardiac catheterization with coronary angiogram in 02/2014 shows severe mitral regurgitation and normal coronary arteries. Echocardiogram shows slightly worsened EF (55-60), new severe posterolateral wall hypokinesis, increase in MR, and increase in pulm HTN. -Cardiology consulted and following. Their time and recommendations are appreciated. -Started on ASA 81 mg daily -Clopidogrel 75 mg daily -Atorvastatin 40 mg qhs -Heparin drip per protocol -Furosemide IV 40 mg bid -Cardiac catheterization with coronary angiogram today 2. Systolic CHF, acute on chronic. Present on admission. Active. -Echocardiogram as above. Pro-BNP elevated 5070. CXR showed mild cardiomegaly and pulmonary congestion. Secondary to severely worsened mitral regurgitation -Continue lisinopril and carvedilol 3. Acute hypoxic respiratory failure. Present on admission. Active -Oxygen saturation 88% while on nasal cannula with 5 liters of oxygen during hospital -Etiology likely due to COPD exacerbation, CHF exacerbation, and RSV infection -D-dimer<0.05 -Supplemental oxygen as needed and nebulizer treatments as below 4. COPD, chronic with acute exacerbation. Present on admission. Active. -DuoNeb scheduled -Albuterol as needed -Added prednisone 40 mg BID 5. Acute RSV bronchitis. Present on admission. Active -RSV positive, possible viral bronchitis. Chest x-ray reads perihilar and left lower lobe infiltrate. Legionella ur antigen and Strep pneumo ur antigen and influenza are negative. MRSA screen positive. Initially, presumed health care associated pneumonia given recent hospitalization, stay at [facility] -Sputum culture and blood culture show no growth to date -Stopped cefepime and levofloxacin and IV vancomycin -Infectious disease consulted and following. His time and recommendations are appreciated. -RSV positive on droplet precautions 6. Acute sepsis. Present on admission. Improving. -Met criteria with HR (131), RR (30) and evidence of pulmonary source of infection as well as C diff colitis -UA negative for nitrites and leukocyte esterase -Lactic acid 2.4 initially but decreased to 1.3 today. Procalcitonin 0.18 yesterday. -IV fluids given in the emergency department 7. Recurrent clostridium difficile toxin. Present on admission. -Patient reports continued loose watery stools this morning -Patient on vancomycin PO -Per infectious disease, vancomycin 125mg four times a day for two weeks to be followed by 125 twice a day for two weeks, then 125 once a day for two weeks, and then finally 125 every other day for two weeks. This total taper will take eight weeks and should dramatically reduce her chances of relapsing C. diff. 8. Hypertension, chronic. Present on admission. -Follow vitals -See above for #5 9. Mitral regurgitation, chronic (moderate to severe). Present on admission -Likely contributing to #2 above -Worsening MR on last echo from 10/2015 -Echocardiogram as above. 10. Hypothyroidism, chronic. Present on admission -Home dose of levothyroxine unknown but from discharge instructions in 07/2016 she was taking 50 mcg of levothyroxine once daily, which has been resumed -TSH remains elevated 11. GERD, chronic. Present on admission -Hiatal hernia on chest x-ray and likely contributing to her chest pain Patient Status: Patient is admitted under inpatient status with expected length of stay greater than 2 midnights due to severity of presenting symptoms, risk of adverse event, and complexity of treatment plan. Possible discharge in the next 1-2 days pending continued improvement of respiratory status and results of coronary angiogram. VTE Prophylaxis: Sub-Q Heparin (Unfractionated) VTE Mechanical Devices: Intermittant Pneumatic CD Resuscitation Status: CPR: Attempt Resuscitation Limited Interventions: Compressions, Cardioversion/Defibrillation, BiPAP, Medications and IV Fluid Time spent 35 minutes Attending Statement Patient seen and examined with house staff. Agree with all attached documentation. Stephanie Diaz DO Sep 17, 2016 18:17 Jassi Vaughan MD Sep 26, 2016 07:14
--- NOTE | 2016-09-17 21:13 | CS94 ---
[address] [address] DIAGNOSTIC CARDIAC CATHETERIZATION PATIENT: VENANCIO GOMEZ : 1944 MR#: [id number] ADMIT: 09/12/2016 JOB ID: [id number] PROCEDURE NOTE--CARDIAC CATHETERIZATION LABORATORY: DATE OF PROCEDURE: Saturday, September 17, 2016. HIGH SCHOOL MATHEMATICS TEACHER: Jose Guadalupe Deleon MD. PROCEDURES: 1. Coronary angiogram. 2. Left heart catheterization (LHC)--LVED; and pullback. CLINICAL DETAILS: This 71-year-old woman presents to the Cardiac Catheterization Laboratory for coronary angiogram after she was admitted with severe dyspnea. She was found to be in heart failure. She has been stabilized to the point where she can now lie flat. Question of coronary disease arose because of elevated troponin and Q-waves on ECG. She did have a cardiac catheterization at this hospital done several years ago because of chest pain. I reviewed the images. There was no obstructive disease then. She has also had some chest pain currently. ECG shows inferior wall KS. Troponins were elevated. Additionally, she has valvular heart disease with significant mitral regurgitation in the past. Echo now shows severe mitral regurgitation and the ejection fraction has declined to 50% to 55%, having been previously reported 60% to 65%. PROCEDURAL DETAILS: The patient was brought to the Catheterization Laboratory where she was prepped sterilely and draped. She had previously signed informed consent to proceed. CORONARY ANGIOGRAM: Arterial access was obtained without difficulty in the right common femoral artery using fluoroscopic localization over the femoral head and modified Seldinger technique to insert a 10 cm, 6-Trinidadian side-arm sheath. Catheters were advanced and exchanged over a long, 0.035-inch J-tipped guidewire. First, the left coronary was engaged with a 6-Trinidadian JL-4 diagnostic catheter. Then, the right coronary artery was imaged using a 6-Trinidadian JR-4 catheter. LEFT HEART CATHETERIZATION: A 6-Trinidadian pigtail catheter was introduced across the aortic valve into the left ventricle to measure pressures. No LV-gram done. LV pressures and pullback were recorded. Procedure without difficulty. Patient tolerated procedure well. No complications. A side-arm sheath angiogram shows adequate access for a closure device. Arterial hemostasis was obtained without difficulty with a StarClose clip. The patient was transferred in stable condition from the Catheterization Laboratory to the [facility] for ongoing care including by the primary Hospitalist Service. I discussed the procedure findings and management considerations with the patient (no family present); and with Cardiology. FINDINGS: 1. LMCA: The left main coronary artery is short and has mild atherosclerotic tapering distally, without any obstructive lesion. 2. LAD: No obstructive lesions. Left anterior descending coronary artery is a large vessel that reaches just to the apex. There is a very large, branching high diagonal artery. 3. LCX: Co-Dominant: The left circumflex coronary artery is a large vessel with a moderate to large 1st obtuse marginal originating from the mid LCX; and distally, there is a large left posterolateral branch. The circumflex gives a small left PDA, which tapers to a thin vessel and which may be diffusely diseased but without discrete obstructive lesions. 4. RCA: Co-dominant. The right coronary artery is a large vessel with a large distal branch--probably PDA--which reaches the apex. There are no obstructive lesions. 5. LHC: LVED is 35 mmHg (pre-A 25 mmHg); and no systolic gradient on pullback across the aortic valve. CONCLUSIONS: 1. Coronary Angiogram--No obstructive coronary disease. 2. Elevated LVED. RECOMMENDATIONS: The catheterization demonstrates no coronary disease mandating treatment. Clinically, also consider severe mitral regurgitation now with declining LV systolic function. MTDD
[2016-09-17] MEDS ORDERED: 0.9% Sodium Chloride 1,000 ML IV PRN (23:23)
[2016-09-17] MEDS ORDERED: 0.9% Sodium Chloride 250 ML IV PRN (23:23)
[2016-09-18] VITALS (12 sets, daily range): BP systolic 134–171; BP diastolic 86–108; PULSE 60–105; RESP 16–22; O2SAT 89–93
[2016-09-18] MEDS: Nitroglycerin 2% 1 Gm Ointment TOPICAL SCH ×4 (02:44→20:06)
[2016-09-18] MEDS: Vancomycin 125 mg Oral Capsule PO SCH ×4 (02:44→20:05)
[2016-09-18 04:09] LABS: BASOPHILS % (AUTO) 0.2 % (0-3); EOSINOPHILS % (AUTO) 0 % (0-5); MONOCYTES % (AUTO) 5.6 % (4-12); Mean Corpuscular Hemoglobin 32.5 pg (27.0-35.0); Mean Corpuscular Volume 98.6 fL (81-100); Platelet Count 336 bil/L (150-400)
--- NOTE | 2016-09-18 04:38 | NUR ---
Tele/sats Tele has been sinus rhythm in 70's tonight. C/o pain to stomach and back, and given Mobile with good effect. Slept well and states she is feeling good this morning. Sats have been around 93% on 2 liters nasal cannula. Right groin site intact with good dorsal pulses. Verbalizes understanding of lifting/straining precautions with groin site.
[2016-09-18] MEDS: Albuterol-Ipratropium 3 mL Inhalation Solution NEB SCH ×3 (06:09→20:02)
[2016-09-18] MEDS: ALPRAZolam 0.5 mg Tablet PO PRN ×2 (06:12→16:47)
[2016-09-18] MEDS: HYDROcodone-APAP 5-325 mg Tablet PO PRN ×2 (09:16→20:04)
[2016-09-18] MEDS: predniSONE 20 mg Tablet PO SCH ×2 (09:17→20:06)
[2016-09-18] MEDS: Furosemide 10 mg/mL 4 mL Inj IVPUSH SCH ×2 (09:17→20:09)
[2016-09-18] MEDS: Sodium Chloride LOK Flush 10 mL Syringe IVFLUSH SCH ×3 (09:17→23:12)
--- NOTE | 2016-09-18 10:39 | DRSVH ---
[facility] [address] [place] [address] Echocardiogram Report Name: VENANCIO GOMEZ Date: 09/18/2016 Height: 61 in Hospital Exam Location: [facility] Weight: 182 lb Gender: Female BSA: 1.8 m2 : 1945 Age: 71 yrs BP: 164/105 mmHg Reason For Study: REASSESS MR, EF, WMA Ordering Physician: Performed By: Marcella Becerra Referring Physician: Gonzalo Galan Interpretation Summary Left ventricular wall thickness is mildly increased. Left ventricular ejection fraction is estimated to be 50%. There has been no significant change since the previous study. There is still presence of hypokinesis of the inferolateral wall. Assessment of diastolic parameters suggests a pseudonormalization pattern, consistent with elevated filling pressures. There is severe mitral regurgitation. The mitral regurgitant jet is eccentrically directed. Procedure: A two-dimensional transthoracic echocardiogram with color flow and Doppler was performed in limited views only. The study quality was technically adequate. Comparison is made with the echocardiogram of 09/13/2016. The patient was in normal sinus rhythm during the exam. Left Ventricle: Left ventricular wall thickness is mildly increased. The left ventricle is normal in size. A false chord is noted (normal variant). Left ventricular ejection fraction is estimated to be 50%. There has been no significant change since the previous study. There is still presence of hypokinesis of the inferolateral wall. The pulmonary vein wave profile is abnormal with PVs/PVd wave reversal. Assessment of diastolic parameters suggests a pseudonormalization pattern, consistent with elevated filling pressures. Mitral Valve: The mitral valve leaflets are mildly calcified. There is mild mitral annular calcification. The mitral valve chordae are thickened and/or calcified. There is severe mitral regurgitation. The mitral regurgitant jet is eccentrically directed. Tricuspid Valve: There is a trace or physiologic amount of tricuspid regurgitation. Pulmonary artery pressures cannot be estimated because of the lack of a measurable TR jet velocity. MMode/2D Measurements & Calculations LVIDd EDV(MOD-sp2) LV martines. diameter/BSA LV sys. diameter/BSA : 5.1 cm (cm/m^2): 2.8 (cm/m^2): 2.3 LVIDs : 4.1 cm FS: 19.2 % IVSd : 1.cm LVPWd : 1.2 cm Doppler Measurements & Calculations MV E max artemio MV E/A: 1.4 MV dec time MV P1/2t max artemio : 131.3 cm/sec Med Peak E' Artemio : 0.21 sec MV A max artemio : 91.8 cm/sec E/E' med: 26.2 MVA(P1/2t): 3.5 cm2 MV P1/2t: 62.9 msecLat Peak E' Artemio MR ERO: 0.30 cm2 E/E' lat: 17.8 E/e' average: 22.0 Pulm A Revs Dur MV A dur: 0.14 sec MR flow rate Pulm A Revs Dur - MV A Dur: 0.02 msec : 176.9 cm3/sec MR PISA radius Reading Physician:KYLER
--- NOTE | 2016-09-18 14:30 | PROG NOTE ---
[address] [address] PROGRESS NOTE PATIENT: VENANCIO GOMEZ : 1945 MR#: [id number] ADMIT: 09/12/2016 JOB ID: [id number] DATE: 09/18/2016 SUBJECTIVE: The patient is sitting on her bed. She is losing weight. Her breathing is a little bit better. She is not having fever. Denies any PND, orthopnea or active chest pain or active bleeding. She had a repeat echocardiogram today which revealed LV ejection fraction about 50% with mild left ventricle enlargement. LV end systolic dimension is about 4.1 cm. There is severe mitral regurgitation. There was pseudonormalization type of diastolic dysfunction. She had a left heart catheterization yesterday which did not reveal any significant obstructive coronary artery disease. LVEDP was about 35 mmHg. OBJECTIVE: Blood pressure 156/98, heart rate about 80, oxygen saturation on 2.5 L 92%. HEENT: No significant jaundice. Neck positive hepatojugular reflex. Chest: Bilateral decreased air entry with basilar crepitations. CVS: S1 appears normal. P2 appears prominent. No obvious S3, S4. Soft grade 2/6 ejection systolic murmur at the apex. Abdomen: Obese. Extremities: 1+ bilateral pedal edema. Vascular: No evidence of critical limb ischemia. PIPE INSTALLER: Alert, oriented to time, place and person. Telemetry: Sinus rhythm, sometimes sinus tachycardia with some PVCs. Short burst of SVT. LABORATORIES: Sodium 136, potassium 3.9, BUN 18, creatinine 0.75. Normal AST, ALT, hemoglobin 9.2. The patient has chronic anemia. Yesterday hemoglobin was 9, platelets 336, polymorphs 81, WBC 4.3. Blood culture on September 12 was negative. ASSESSMENT AND PLAN: Acute systolic as well as diastolic heart failure due to severe mitral regurgitation. On echocardiogram there was new mid to distal posterior lateral wall motion abnormalities. Her troponin was elevated. There was suspicion for non ST-T VA hence she underwent left heart catheterization yesterday which did not reveal any significant obstructive coronary artery disease. There was no obvious mitral valve prolapse. No obvious vegetation seen. As patient is symptomatic with severe mitral regurgitation with heart failure symptoms and end systolic dimension more than 4 cm, she will need mitral valve surgery. I had a long discussion with the patient about further workup including mitral valve surgery as well as transesophageal echocardiogram to evaluate her mitral valve. She has history of excessive alcohol abuse and recent C. difficile infection and alcohol hepatitis without any known cirrhosis liver. She had an endoscopy in 2014. At that time, she had an hiatal hernia without any obvious abnormality of the esophagus. There was some gastritis. At this point of time, the patient is not interested to undergo transesophageal echocardiogram or mitral valve surgery. She would prefer to be treated medically. She had a stress test in the absence of mitral valve surgery. Overall her prognosis is poor. Her blood pressure is uncontrolled. I will increase lisinopril to 30 mg twice a day. She is making decent urine output. She is losing weight. Continue IV Lasix until she becomes euvolemic. Slowly and gradually maximize beta raina as well. Will recommend followup with Dr. Jacobs as an outpatient in 2-3 weeks. Cardiology will see her on p.r.n. basis in the hospital. TOTAL TIME SPENT: Today about 45 minutes.
--- NOTE | 2016-09-18 14:39 | NUR ---
took over patient care at 2pm
--- NOTE | 2016-09-18 16:35 | NUR ---
Anxiety Pt upset for not being discharge today, stating wanting to go home and is really anxious because of it. Xanax given, and new nicotine patch applied per pt's request. Ongoing care.
--- NOTE | 2016-09-18 16:46 | NUR ---
Social Work Note: Readiness for Discharge Data& Assessment: Per MD pt is getting closer to being medically ready for discharge. SW met with pt at bedside to confirm discharge plan, another attempt for CD assessment and assess for any unmet needs. Pt was very aggitated and upset she has not been discharged yet. Pt did not want to talk about alcohol use but did communicate that she is used to drinking as much whiskey as she wants at home, and now she does not have "any freedom." When SW asked if she was experiencing any withdrawal symptoms, pt stated she was and needed more medication. RN notified. Since SW was not able to complete a full CD assessment, pt was assessed for suicide risk. Pt denies any current suicidal ideation but did say she was thinking about it a few weeks ago because she was "tired of being so sick for years." Pt would not elaborate on a plan and denied any current plan, or current thoughts of suicide. Pt stated "I want to live until I naturally." Pt then emphasized frustration with not being discharged and being chronically sick. Pt denies any other needs at this time and confirmed her will transport her home when medically ready. No other discharge needs identified. Plan: Anticipated discharge home via POV when medically ready. Pt denies any other needs. No other discharge needs identified. [facility]
--- NOTE | 2016-09-18 17:30 | NUR ---
Med Refusal Pt refused her 1630 Solu-Medrol because her Ativan is not due yet. Pt unable to take Solu-Medrol without Ativan, stating it makes her too anxious and she becomes SOB. Report given to mitchell LOYOLA. Addendum: 09/19/16 at 0209 by NAVARRO ECKERT RN NOTE: ENTERED UNDER WRONG PT.
--- NOTE | 2016-09-18 19:25 | PCM.PNMED ---
Subjective Date of Service Sep 18, 2016 Subjective Today: She reports improved breathing but she continues to use oxygen by nasal cannula, which she is not on oxygen at home. She continues to have a cough. She has diarrhea but it is improving because she no longer has bowel movements in the afternoon. Exam Vital Signs Vital Sign - Last Date Time Temp Pulse Resp B/P Pulse Ox O2 Delivery O2 Flow Rate FiO2 09/18/16 15:24 36.5 90 20 171/108 92 Nasal Cannula 3.00 Intake and Output 09/17/16 09/17/16 09/18/16 Cumulative From/Thru 15:00 23:00 07:00 09/12/16 17:28 - 09/18/16 05:47 Intake Total 0 ml 931 ml 9292 ml Output Total 850 ml 1600 ml 61788 ml Balance -850 ml -669 ml -5208 ml Intake Oral 0 ml 300 ml 6253 ml IV Total 631 ml 3039 ml Output Urine Total 250 ml 900 ml 16245 ml Urine/Stool Mix 600 ml 700 ml 3700 ml # Voids 10 # Bowel Movements 12 Exam General: No acute distress, well-developed, well-nourished, appropriately interactive HEENT: Normocephalic, atraumatic. External ears without defect. Pupils equal, round, and reactive to light. Anicteric sclerae, moist conjunctivae, and no lid lag. Neck: Supple. No jugular venous distension. No lymphadenopathy or thyromegaly. Cardiovascular: Regular rate and rhythm. Systolic murmur present. Pulmonary: Mild, prolonged end expiratory wheezes noted on exam. Bilateral fine crackles at bases. Abdomen: Bowel tones present. Soft, nontender, nondistended. No hepatosplenomegaly or masses appreciated. Extremities: Mild bilateral lower extremity pitting edema to mid-calves. Skin: Normal temperature, turgor, and texture; no rash, ulcers, or subcutaneous nodules appreciated. Neurological: Cranial nerves grossly intact. Psychiatric: Normal mood and affect. Alert and oriented to person, place, and time. IVs and Medications Medications Reviewed: Medications were reviewed in detail Lab and Diagnostics Result Diagram: 09/18/16 0355 09/18/16 0355 X-Rays, CTs and MRIs PROCEDURE: X-RAY CHEST ONE VIEW, PORTABLE Date of Service: 09/12/16 330 IMPRESSION: Right perihilar and left lower lobe pneumonia. Recommend followup to resolution. Approved by: Abbi Leigh M.D. on 09/12/2016 at 18:02 PROCEDURE: X-RAY CHEST ONE VIEW, PORTABLE IMPRESSION: 1. Mild cardiomegaly and pulmonary congestion. 2. The right perihilar and left lower lobe opacities may be superimposed resolving pneumonia. 3. Moderate-sized hiatal hernia. Approved by: Abbi Leigh M.D. on 09/13/2016 at 11:14 Cardiac Echo Impressions Echocardiogram Report Interpretation Summary Left ventricular wall thickness is mildly increased. Left ventricular ejection fraction is estimated to be 50%. There has been no significant change since the previous study. There is still presence of hypokinesis of the inferolateral wall. Assessment of diastolic parameters suggests a pseudonormalization pattern, consistent with elevated filling pressures. There is severe mitral regurgitation. The mitral regurgitant jet is eccentrically directed. Reading Physician:KYLER Assessment & Plan Patient is a 71-year-old female with CAD, hypertension, COPD and systolic CHF presenting with shortness of breath and admitted for pneumonia. 1. Systolic and diastolic CHF, acute on chronic. Present on admission. Active. -Echocardiogram as above. Pro-BNP elevated 5070. CXR showed mild cardiomegaly and pulmonary congestion. Secondary to severely worsened mitral regurgitation. -Lost 5.2 kg since day of admission -Atorvastatin 40 mg at bedtime -Lisinopril increased to 30 mg BID -Carvedilol 6.25 mg BID -Spironolactone 25 mg daily -Furosemide IV 40 mg bid 2. Acute RSV bronchitis. Present on admission. Active -RSV positive, possible viral bronchitis. Chest x-ray reads perihilar and left lower lobe infiltrate. Legionella ur antigen and Strep pneumo ur antigen and influenza are negative. MRSA screen positive. Initially, presumed health care associated pneumonia given recent hospitalization, stay at [facility] -Sputum culture and blood culture show no growth to date -Stopped cefepime and levofloxacin and IV vancomycin -Infectious disease consulted and followed. His time and recommendations are appreciated. -RSV positive on droplet precautions 3. Elevated troponin. Present on admission. Improved. -Troponin downtrending but continues to be elevated. Patient had intermittent chest pain. Repeat EKG during active chest pain showed sinus tachycardia with premature atrial contractions and inferior old infarct. No acute ST-elevation or depression. Cardiac catheterization with coronary angiogram in 02/2014 shows severe mitral regurgitation and normal coronary arteries. Echocardiogram showed slightly worsened EF (55-60), new severe posterolateral wall hypokinesis, increase in MR, and increase in pulm HTN. -Most likely, elevated secondary to demand ischemia from an acute exacerbation of CHF and an active respiratory infection. Coronary angiogram yesterday showed no obstructive coronary disease, and therefore, she did not have a myocardial infarction. -Cardiology consulted and following. Their time and recommendations are appreciated. -Started on ASA 81 mg daily -Clopidogrel 75 mg daily discontinued as she does not have CAD 4. Acute hypoxic respiratory failure. Present on admission. Improving. -Oxygen saturation 88% while on nasal cannula with 5 liters of oxygen during hospital. She is not on oxygen at home. -Etiology likely due to COPD exacerbation, CHF exacerbation, and RSV infection -D-dimer<0.05 -Supplemental oxygen as needed and nebulizer treatments as below -Respiratory care evaluation for home oxygen 5. COPD, chronic with acute exacerbation. Present on admission. Active. -DuoNeb scheduled -Albuterol as needed -Prednisone 20 mg BID 6. Acute sepsis. Present on admission. Improving. -Met criteria with HR (131), RR (30) and evidence of pulmonary source of infection as well as C diff colitis -UA negative for nitrites and leukocyte esterase -Lactic acid 2.4 initially but decreased to 1.3 today. Procalcitonin 0.18 yesterday. -IV fluids given in the emergency department 7. Recurrent clostridium difficile toxin. Present on admission. -Patient reports continued loose watery stools this morning -Patient on vancomycin PO -Per infectious disease, vancomycin 125mg four times a day for two weeks to be followed by 125 twice a day for two weeks, then 125 once a day for two weeks, and then finally 125 every other day for two weeks. This total taper will take eight weeks and should dramatically reduce her chances of relapsing C. diff. PO vancomycin started on 09/13/16. 8. Hypertension, chronic. Present on admission. -Follow vitals -Medications as above 9. Mitral regurgitation, chronic (moderate to severe). Present on admission -Likely contributing to #1 -Worsening MR on last echo from 10/2015 -Echocardiogram as above. 10. Hypothyroidism, chronic. Present on admission -Home dose of levothyroxine unknown but from discharge instructions in 07/2016 she was taking 50 mcg of levothyroxine once daily, which has been resumed -TSH remains elevated 11. GERD, chronic. Present on admission -Hiatal hernia on chest x-ray and likely contributing to her chest pain Patient Status: Patient is admitted under inpatient status with expected length of stay greater than 2 midnights due to severity of presenting symptoms, risk of adverse event, and complexity of treatment plan. Possible discharge in the next 1-2 days pending continued improvement of respiratory status and improvement of volume status. VTE Prophylaxis: Sub-Q Heparin (Unfractionated) VTE Mechanical Devices: Intermittant Pneumatic CD Resuscitation Status: CPR: Attempt Resuscitation Limited Interventions: Compressions, Cardioversion/Defibrillation, BiPAP, Medications and IV Fluid Time spent 35 minutes Attending Statement Patient seen and examined with house staff. Agree with all attached documentation. Stephanie Diaz DO Sep 18, 2016 16:54 Jassi Vaughan MD Sep 26, 2016 07:34
[2016-09-18] MEDS: Ondansetron 2 mg/mL 2 mL Inj IVPUSH PRN (23:12)
[2016-09-19] VITALS (10 sets, daily range): BP systolic 122–171; BP diastolic 68–112; PULSE 67–115; RESP 16–19; O2SAT 89–96
[2016-09-19] MEDS: HYDROcodone-APAP 5-325 mg Tablet PO PRN ×2 (00:24→17:53)
[2016-09-19] MEDS: Vancomycin 125 mg Oral Capsule PO SCH ×3 (02:21→14:09)
[2016-09-19] MEDS: Nitroglycerin 2% 1 Gm Ointment TOPICAL SCH ×3 (02:21→13:58)
[2016-09-19 03:46] LABS: BASOPHILS % (AUTO) 0 % (0-3); EOSINOPHILS % (AUTO) 0 % (0-5); MONOCYTES % (AUTO) 9.8 % (4-12); Mean Corpuscular Hemoglobin 32.8 pg (27.0-35.0); Mean Corpuscular Volume 98.8 fL (81-100); NEUTROPHILS % (AUTO) 76.1 % (40-74); Platelet Count 324 bil/L (150-400)
--- NOTE | 2016-09-19 06:04 | NUR ---
HTN: P: Blood pressure of 171/112 this am. I: 0830 dose of lisinopril 30 mg administered early this morning. E: Blood pressure post lisinopril is 156/108.
--- NOTE | 2016-09-19 07:22 | NUR ---
Dizziness: Pt c/o dizziness at change of shift when waking up and getting up to the BSC. Telemetry: HR noted to escalate to the 120s ST. Pt described it as: " the rooms spinning around me." Dizziness resolved with getting back into bed and resting. Blood pressure checked and charted under interventions. Day shift updated. Pt stable at this time.
[2016-09-19] MEDS: predniSONE 20 mg Tablet PO SCH (08:05)
[2016-09-19] MEDS: Furosemide 10 mg/mL 4 mL Inj IVPUSH SCH (08:05)
[2016-09-19] MEDS: Sodium Chloride LOK Flush 10 mL Syringe IVFLUSH SCH ×2 (08:06→16:25)
[2016-09-19] MEDS: Albuterol-Ipratropium 3 mL Inhalation Solution NEB SCH ×2 (09:52→12:56)
[2016-09-19] MEDS: ALPRAZolam 0.5 mg Tablet PO PRN (11:15)
[2016-09-19] MEDS ORDERED: VANC125C3 PO (17:23)
[2016-09-19] MEDS ORDERED: FURO-128 PO (17:23)
[2016-09-19] MEDS ORDERED: ASPI81TA3 PO (17:23)
[2016-09-19] MEDS ORDERED: LISI30TA5 PO (17:23)
[2016-09-19] MEDS ORDERED: LEVO50TA6 PO (17:23)
[2016-09-19] MEDS ORDERED: SPIR25TA PO (17:23)
[2016-09-19] MEDS ORDERED: CARV6.252 PO (17:23)
--- NOTE | 2016-09-19 17:42 | PCM.DIMED ---
Stephanie Diaz DO 09/19/16 1742: Discharge Instructions Date of Service Sep 19, 2016 Dates of Hospitalization Sep 12, 2016 at 20:37 Discharge Diagnosis Discharge Diagnosis 1. Systolic and diastolic CHF 2. Acute RSV bronchitis 3. Elevated troponin. 4. Acute hypoxic respiratory failure. 5. COPD, chronic with acute exacerbation. 6. Acute sepsis. 7. Recurrent clostridium difficile toxin. 8. Hypertension, chronic. 9. Mitral regurgitation, chronic (moderate to severe). 10. Hypothyroidism, chronic. 11. GERD, chronic. Diet Heart Healthy Activity Limited until seen by PCP Call your provider Fever or Chills, Shortness of breath, Bleeding, Chest pain, Vomitting, Weakness (unilateral) Patient Instructions For the C. difficile infection, you will continue vancomycin 125 mg tablets by mouth. You will take one tablet 4 times a day for the next 8 days, then you will take one tablet twice per day for 2 weeks, then take 1 tablet once per day for 2 weeks, and then finally take 1 tablet once every other day for 2 weeks. The total course lasts 8 weeks, and you had the first 6 days here in the hospital. You should add probiotics to your diet such as sauerkraut or yogurt. For cleaning around your house, you can use bleach where possible. For items that you cannot clean with bleach, wash them in the washer and dryer. Make sure to wash your hands with soap and water after using the bathroom. Do not take Imodium or loperamide for diarrhea. For your heart health and blood pressure, the medications that you should now be taking are the following: Carvedilol 6.25 mg twice per day with meals, spironolactone 25 mg once daily, aspirin 81 mg once daily, furosemide 40 mg twice per day, and lisinopril 30 mg twice per day. Based on your lab work here , you do not need to continue taking potassium supplements. Follow-up with your primary care provider within one week to monitor your blood pressure and to check your CBC and BMP, including your potassium level. Follow-up with cardiology in 2-3 weeks. For hypothyroidism, continue taking levothyroxine 50 g once daily in the morning. Follow up with your primary care provider regarding this as well. Continue your inhalers and nebulizers as previously prescribed. Follow-up Provider: Davin Galan MD Follow-up with PCP in: 1 week Provider: Dave Jacobs MD Follow-up in: 2 weeks (2-3 weeks) Burt Pearl MD 09/20/16 0728: Discharge Instructions Attending's Statement The patient was seen and examined together with Dr. Diaz on 09/19/2016 and I agree with the history, exam and plan as outlined in the note above. . Stephanie Diaz DO Sep 19, 2016 17:42 Burt Pearl MD Sep 20, 2016 07:28
--- NOTE | 2016-09-19 19:00 | NUR ---
Discharge Pt. was discharged to home with and took all her belongings from room [address] P[facility]. Pt. was given educational material on new prescriptions as well as admitting diagnosis. Pt. IV DC'D x2 and intact. Pt. was also instructed to follow up with cardiology in 2 to 3 weeks. I went over the doctors instructions with Pt. on how to take her antibiotic regiment. Also instructed Pt. to follow up with her primary care provider within one week to monitor blood pressure and to check blood work, including potassium level since doctor mentioned to Pt. to stop taking potassium supplements until then.
--- NOTE | 2016-09-20 21:06 | PCM.DC.MED ---
Discharge Summary Date of Service Sep 20, 2016 Dates of Hospitalization Date of Hospital Admission Sep 12, 2016 at 20:37 Date of Discharge: Sep 19, 2016 Providers: Admitting Physician: Mely Olivera MD Primary Care Physician: Davin Galan MD Attending Physician: Mely Olivera MD Diagnosis at Time of Discharge Diagnosis at Time of Discharge 1. Systolic and diastolic congestive heart failure 2. Acute respiratory syncytial virus bronchitis 3. Elevated troponin. 4. Acute hypoxic respiratory failure. 5. Chronic obstructive pulmonary disease with acute exacerbation. 6. Acute sepsis. 7. Recurrent clostridium difficile toxin. 8. Hypertension, chronic. 9. Mitral regurgitation, chronic (moderate to severe). 10. Hypothyroidism, chronic. 11. Gastroesophageal reflux disease, chronic. Procedures XRay, CTs & MRIs PROCEDURE: X-RAY CHEST ONE VIEW, PORTABLE Date of Service: 09/12/16 1718 IMPRESSION: Right perihilar and left lower lobe pneumonia. Recommend followup to resolution. Approved by: Abbi Leigh M.D. on 09/12/2016 at 18:02 PROCEDURE: X-RAY CHEST ONE VIEW, PORTABLE IMPRESSION: 1. Mild cardiomegaly and pulmonary congestion. 2. The right perihilar and left lower lobe opacities may be superimposed resolving pneumonia. 3. Moderate-sized hiatal hernia. Approved by: Abbi Leigh M.D. on 09/13/2016 at 11:14 Cardiac Echo Impression Echocardiogram Report Interpretation Summary Left ventricular wall thickness is mildly increased. Left ventricular ejection fraction is estimated to be 50%. There has been no significant change since the previous study. There is still presence of hypokinesis of the inferolateral wall. Assessment of diastolic parameters suggests a pseudonormalization pattern, consistent with elevated filling pressures. There is severe mitral regurgitation. The mitral regurgitant jet is eccentrically directed. Reading Physician:AM Echocardiogram Report Interpretation Summary Left ventricular size is at the upper limits of normal. The ejection fraction is estimated to be 55-60%.Compared to the prior exam, left ventricular function is slightly decreased. There is mid to distal posteriolateral wall severe hypokinesis (New). Right ventricular systolic function is mildly reduced. Suspect PMD of posterior mitral leaflet. There is severe mitral regurgitation. Compared to the prior echo study, there has been an increase in the severity of mitral regurgitation. The mitral regurgitant jet is eccentrically directed. There is mild tricuspid regurgitation. The right ventricular systolic pressure is estimated at 44 mmHg assuming a right atrial pressure of 8 mm Hg. Compared to the prior echo exam, there has been an increase in the severity of pulmonary hypertension. Reading Physician: PM Brief History From the history and physical performed by Dr. Burak Lubin on 09/12/2016: Patient is a 71-year-old female with CAD, hypertension, COPD and systolic CHF presenting with shortness of breath. Patient is accompanied by her at bedside. Of note, the patient recently completed rehabilitation at [facility] on 09/03/2016 following hospitalization for C. diff colitis. Patient reports onset of shortness of breath one day ago, which was worse today prompting her to be brought to [facility] ED for further evaluation. Patient reports associated wheezing and productive cough of clear sputum. She also reports chronic chest pain, abdominal pain and lower extremity swelling. She states her lower extremity swelling is actually improved compared to her usual baseline. Patient otherwise denies fever, chills, emesis, dysuria. Chest x-ray in the ED shows right perihilar and left lower lobe pneumonia. Patient was started on vancomycin , levofloxacin and cefepime for presumed HCAP in the ED. In the ED, vitals: 36.9, HR 131, RR 30 satting 91% on room air, BP 171/115. Notable labs: lactic acid 2.4, troponin 0.108, Pro-BNP 5070, d-dimer<0.5. Hospital Course Patient is a 71-year-old female with hypertension, chronic obstructive pulmonary disease and congestive heart failure presenting with shortness of breath and admitted for pneumonia. 1. Systolic and diastolic congestive heart failure, acute on chronic. Present on admission. Improved. -Echocardiograms as above. Pro-BNP was elevated at 5070. Chest x-ray showed mild cardiomegaly and pulmonary congestion. Secondary to severely worsened mitral regurgitation. -Lost 6.1 kg since day of admission -Lisinopril increased to 30 mg twice per day -Started on carvedilol 6.25 mg twice per day, spironolactone 25 mg daily, and furosemide 40 mg twice per day 2. Acute respiratory syncytial virus bronchitis. Present on admission. Improved. -Respiratory syncytial virus positive. Chest x-ray read as perihilar and left lower lobe infiltrate. Legionella urine antigen, Strep. pneumoniae urine antigen , and influenza are negative. MRSA screen positive. Initially, presumed health care associated pneumonia given recent hospitalization and stay at [facility]. -Sputum culture and blood culture showed no growth to date -Stopped cefepime, levofloxacin, and intravenous vancomycin -Infectious disease consulted and followed. His time and recommendations were appreciated. 3. Elevated troponin, acute. Present on admission. -Troponin downtrending but continued to be elevated. Patient had intermittent chest pain. Repeat EKG during active chest pain showed sinus tachycardia with premature atrial contractions and inferior old infarct. No acute ST-elevation or depression. Cardiac catheterization with coronary angiogram in 02/2014 showed severe mitral regurgitation and normal coronary arteries. Echocardiogram on 09/13/16 showed slightly worsened ejection fraction (55-60), new severe posterolateral wall hypokinesis, increased mitral regurgitation, and increased pulmonary hypertension. -Most likely, it was elevated secondary to demand ischemia from an acute exacerbation of congestive heart failure and an active respiratory infection. Coronary angiogram done on 09/17/16 showed no obstructive coronary disease, and therefore, she did not have a myocardial infarction. -Cardiology consulted and following. Their time and recommendations were appreciated. -Started on aspirin 81 mg daily -Clopidogrel 75 mg daily discontinued as she does not have coronary artery disease 4. Acute hypoxic respiratory failure. Present on admission. Improving. -Oxygen saturation 88% while on nasal cannula with 5 liters of oxygen during hospital. She was not on oxygen at home. -Etiology due to chronic obstructive pulmonary disease exacerbation, congestive heart failure exacerbation, and respiratory syncytial virus infection -D-dimer was <0.05 -Supplemental oxygen as needed and nebulizer treatments were given -Patient refused home oxygen on day of discharge. 5. Chronic obstructive pulmonary disease, with acute exacerbation. Present on admission. Improved. -Albuterol/ipratropium nebulizers were given at scheduled intervals. -Albuterol nebulizers were also given as needed -Prednisone burst was given 6. Acute sepsis. Present on admission. Improved. -Met criteria with heart rate (131), respiratory rate (30) and evidence of pulmonary source of infection as well as recurrent C difficile colitis -Urinalysis was negative for nitrites and leukocyte esterase -Lactic acid 2.4 initially but decreased to 1.3. -Intravenous fluids were given in the emergency department 7. Recurrent clostridium difficile toxin. Present on admission. Active. -Patient reported continued loose watery stools -Patient on oral vancomycin -Per infectious disease, vancomycin by mouth 125 mg four times a day for two weeks to be followed by 125 mg twice a day for two weeks, then 125 mg once a day for two weeks, and then finally 125 mg every other day for two weeks. This total taper will take eight weeks and should dramatically reduce her chances of relapsing C. difficile.. 8. Hypertension, chronic. Present on admission. -Medications as above, see #1 9. Mitral regurgitation, chronic (moderate to severe). Present on admission. -Worsening mitral regurgitation -Echocardiograms as above -Patient does not want to pursue surgical intervention. -Recommend discussing hospice consultation and with dignity with her as an outpatient. Patient has clear definition of what quality of life means to her. 10. Hypothyroidism, chronic. Present on admission -Home dose of levothyroxine unknown but from discharge instructions in 07/2016 she was taking 50 mcg of levothyroxine once daily, which was resumed -Thyroid stimulating hormone remained elevated 11. Gastroesophageal reflux disease, chronic. Present on admission. -Hiatal hernia was seen on chest x-ray and likely contributing to her chest pain. Exam Vital Signs (Last) Date Time Temp Pulse Resp B/P Pulse Ox O2 Delivery O2 Flow Rate FiO2 09/19/16 14:55 36.5 71 16 122/68 96 Nasal Cannula 3.00 Exam General: No acute distress, well-developed, well-nourished, appropriately interactive HEENT: Normocephalic, atraumatic. External ears without defect. Pupils equal, round, and reactive to light. Anicteric sclerae, moist conjunctivae, and no lid lag. Neck: Supple. No jugular venous distension. No lymphadenopathy or thyromegaly. Cardiovascular: Regular rate and rhythm. Systolic murmur present. Pulmonary: Mild, prolonged end expiratory wheezes noted on exam. No rales or rhonchi. Abdomen: Bowel tones present. Soft, nontender, nondistended. No hepatosplenomegaly or masses appreciated. Extremities: Mild bilateral lower extremity pitting edema to mid-calves. Skin: Normal temperature, turgor, and texture; no rash, ulcers, or subcutaneous nodules appreciated. Neurological: Cranial nerves grossly intact. Psychiatric: Normal mood and affect. Alert and oriented to person, place, and time. Test 09/12/16 17:05 09/12/16 17:40 09/12/16 23:00 09/13/16 05:14 Urine Color Yellow (YELLOW) Urine Appearance Cloudy (CLEAR,HAZY) Urine pH 8.5 (5.0-8.0) Urine Specific [place] 1.010 (1.003-1.035) Urine Protein Negativemg/dL (NEG,TRACE) Urine Glucose (UA) Negativemg/dL (NEGATIVE) Urine Ketones Negativemg/dL (NEGATIVE) Urine Occult Blood Moderate (NEGATIVE) Urine Nitrite Negative (NEGATIVE) Urine Bilirubin Negative (NEGATIVE) Urine Urobilinogen Normalmg/dL (NORMAL) Urine Leukocyte Esterase Negative (NEGATIVE) Urine RBC 3-10/hpf (0-2) Urine WBC 0-5/hpf (0-5) Urine Epithelial Cells Few/hpf (NONE-MOD) Urine Crystals None seen (NONE SEEN) Urine Bacteria Few/hpf (NONE-FEW) Urine Hyaline Casts None/lpf (NONE) Urine Granular Casts None seen (NONE SEEN) Urine Waxy Casts None seen (NONE SEEN) Urine Red Blood Cell Casts None seen (NONE SEEN) Urine White Blood Cell Casts None seen (NONE SEEN) Urine Mucus None seen (None Seen) Urine Trichomonas None seen (NONE SEEN) Urine Yeast None (NONE SEEN) Urinalysis Comment None Urine Culture Reflexed Not indicated Pro-B-Type Natriuretic Peptide 5070pg/mL (0-301) Urine Legionella pneumophilia Ag Negative (Negative) Hold Purple Top Tube Received (Received) D-Dimer < 0.5mg/L (<0.50) Hold Red Top Tube Received (Received) Hold [place] Top Tube Received (Received) Hold Alejandro Top Tube Received (Received) Lactic Acid Level 1.3mmol/L (0.4-2.0) Procalcitonin 0.18ng/mL (0.00-0.08) Test 09/13/16 11:35 09/13/16 11:45 09/14/16 02:30 09/14/16 18:40 Total Creatine Kinase 38U/L (21-215) Creatine Kinase MB 4.5ng/mL (0.0-5.3) Creatine Kinase MB % % (0.0-5.0) Hold Urine Received (Received) Thyroid Stimulating Hormone (TSH) 52.350uIU/mL (0.450-4.500) Hold Blue Top Tube Received (Received) Test 09/16/16 04:00 09/16/16 22:57 09/17/16 03:15 09/19/16 03:35 Magnesium Level 1.9mg/dL (1.6-2.6) Activated Partial Thromboplast Time 52.9sec (22.8-33.0) Troponin T 0.066ug/L (0.0-0.011) White Blood Count 4.2th/mm3 (3.8-10.1) Red Blood Count 2.47mil/mm3 (3.90-5.20) Mean Corpuscular Volume 98.8fL (81-100) Mean Corpuscular Hemoglobin 32.8pg (27.0-35.0) Mean Corpuscular Hemoglobin Concent 33.2% (32.0-37.0) Red Cell Distribution Width 18.5% (12.3-15.4) Platelet Count 324bil/L (150-400) Neutrophils (%) (Auto) 76.1% (40-74) Lymphocytes (%) (Auto) 12.9% (14-46) Monocytes (%) (Auto) 9.8% (4-12) Eosinophils (%) (Auto) 0% (0-5) Basophils (%) (Auto) 0% (0-3) Sodium Level 136mEq/L (134-144) Potassium Level 4.1mEq/L (3.5-5.2) Chloride Level 94mEq/L (97-108) Carbon Dioxide Level 33mmol/L (18-29) Blood Urea Nitrogen 20mg/dL (8-27) Creatinine 0.79mg/dL (0.57-1.00) Estimat Glomerular Filtration Rate 103mL/min (>59) Glucose Level 137mg/dL (60-99) Calcium Level 8.6mg/dL (8.5-10.1) Total Bilirubin 0.2mg/dL (0.0-1.2) Aspartate Amino Transf (AST/SGOT) 23U/L (0-50) Alanine Aminotransferase (ALT/SGPT) 15U/L (0-32) Alkaline Phosphatase 145U/L (25-165) Total Protein 5.4g/dL (6.4-8.4) Albumin 3.0g/dL (3.4-5.0) Test 09/19/16 14:02 Hemoglobin 9.5g/dL (12.0-15.6) Hematocrit 27.4% (35.0-46.0) Discharge Medications Discharge Medications Aspirin Chew (Aspirin Chew) 81 Mg Chew 81 MG PO DAILY Prescribed by: CLEVELAND DIAZ DO Carvedilol (Carvedilol) 6.25 Mg Tablet 6.25 MG PO BIDWM Prescribed by: CLEVELAND DIAZ DO Furosemide (Lasix) 40 Mg Tablet 40 MG PO BID Prescribed by: CLEVELAND DIAZ DO Levothyroxine (Levothyroxine) 50 Mcg Tablet 50 MCG PO DAILYAC Prescribed by: CLEVELAND DIAZ DO Lisinopril (Lisinopril) 30 Mg Tablet 30 MG PO BID Prescribed by: CLEVELAND DIAZ DO Vit#96/Ferrous Fum/FA ( Tablet) 1 Each Tablet 1 TABLET PO DAILY Prescribed by: RAGINI MARINO DO Spironolactone (Aldactone) 25 Mg Tablet 25 MG PO DAILY Prescribed by: CLEVELAND DIAZ DO Vancomycin (Vancomycin) 125 Mg Capsule 125 MG PO DIRECTED Take 1 tablet 4 times a day for 8 days, then take 1 tablet twice per day for 2 weeks, then take 1 tablet once per day for 2 weeks, and then finally 1 tablet once every other day for 2 weeks. Prescribed by: CLEVELAND DIAZ DO As needed Albuterol Sulfate (Ventolin HFA Inhaler) 200 Puff/18 Gm Inhaler 2 PUFF INH Q4-6 HRS PRN PRN PRN For Wheezing (Reported) Alprazolam (Alprazolam) 0.5 Mg Tablet 0.5 MG PO BID PRN PRN For Anxiety ( Reported) Arformoterol Tartrate (Brovana) 15 Mcg/2 Ml Vial.neb 15 MCG IH BID PRN PRN For Shortness of Breath (Reported) Budesonide (Budesonide) 1 Mg/2 Ml Ampul.neb 1 MG IH DAILY PRN PRN For Shortness of Breath (Reported) Hydrocodone-Acetaminophen 5-325 mg (Hydrocodone-Acetaminophen 5-325 mg) 1 Each Tablet 1 TABLET PO BID PRN PRN For Pain (Reported) Hydrocodone-Acetaminophen 5-325 mg (Hydrocodone-Acetaminophen 5-325 mg) 1 Each Tablet 1 TABLET PO Q4H PRN PRN For Pain Prescribed by: RAGINI MARINO, Ipratropium [place] (Atrovent HFA) 200 Puff/12.9 Gm Inhaler 2 PUFF INH QID PRN PRN For Shortness of Breath (Reported) Miscellaneous Medications Sertraline HCl (Sertraline) 50 Mg Tablet (Reported) Followup Plan Discharge Diet: Heart Healthy Discharge Activity: Limited until seen by PCP Patient Instructions For the C. difficile infection, you will continue vancomycin 125 mg tablets by mouth. You will take one tablet 4 times a day for the next 8 days, then you will take one tablet twice per day for 2 weeks, then take 1 tablet once per day for 2 weeks, and then finally take 1 tablet once every other day for 2 weeks. The total course lasts 8 weeks, and you had the first 6 days here in the hospital. You should add probiotics to your diet such as sauerkraut or yogurt. For cleaning around your house, you can use bleach where possible. For items that you cannot clean with bleach, wash them in the washer and dryer. Make sure to wash your hands with soap and water after using the bathroom. Do not take Imodium or loperamide for diarrhea. For your heart health and blood pressure, the medications that you should now be taking are the following: Carvedilol 6.25 mg twice per day with meals, spironolactone 25 mg once daily, aspirin 81 mg once daily, furosemide 40 mg twice per day, and lisinopril 30 mg twice per day. Based on your lab work here , you do not need to continue taking potassium supplements. Follow-up with your primary care provider within one week to monitor your blood pressure and to check your CBC and BMP, including your potassium level. Follow-up with cardiology in 2-3 weeks. For hypothyroidism, continue taking levothyroxine 50 g once daily in the morning. Follow up with your primary care provider regarding this as well. Continue your inhalers and nebulizers as previously prescribed. Follow-up Provider: Davin Galan MD Follow-up with PCP in: 1 week Provider: Dave Jacobs MD Follow-up in: 2 weeks (2-3 weeks) Time spent Greater than 30 minutes was spent in preparation of discharge with greater than 50% of that time dedicated to patient counseling and coordination of care. . Attending Statement The patient was seen and examined together with Dr. Diaz on 09/20/2016 and I agree with the history, exam and plan as outlined in the note above. . copies to: Dave Jacobs MD; Davin Galan MD, Marissa L DO Sep 20, 2016 21:06 Burt Pearl MD Sep 21, 2016 07:36
== END 2016-09-19 18:55 | disposition home or self-care (01) | DRG 871 ==
LOC: EDUNIT# 17:09 → EDBD 17:09 → SED 17:09 → PCC 20:37
PROVIDERS: ADMIT Specialist; ATTEND Specialist
PROC: 4A023N7 Measurement of Cardiac Sampling and Pressure, Left Heart, Percutaneous Approach (ICD-10-PCS; principal; 2016-09-17)
PROC: B2111ZZ Fluoroscopy of Multiple Coronary Arteries using Low Osmolar Contrast (ICD-10-PCS; 2016-09-17)
DX: A41.89 Other specified sepsis (principal); I50.43 Acute on chronic combined systolic (congestive) and diastolic (congestive) heart failure; J96.01 Acute respiratory failure with hypoxia; I24.8 Other forms of acute ischemic heart disease; A04.7 Enterocolitis due to Clostridium difficile; J44.1 Chronic obstructive pulmonary disease with (acute) exacerbation; J20.5 Acute bronchitis due to respiratory syncytial virus; I34.0 Nonrheumatic mitral (valve) insufficiency; I10 Essential (primary) hypertension; E03.9 Hypothyroidism, unspecified; F17.210 Nicotine dependence, cigarettes, uncomplicated; K21.9 Gastro-esophageal reflux disease without esophagitis; I27.2 Other secondary pulmonary hypertension; Z22.322 Carrier or suspected carrier of Methicillin resistant Staphylococcus aureus; I51.89 Other ill-defined heart diseases

== ENCOUNTER 2016-11-05 12:25 | Inpatient (IN) | payer MEDICARE ==
[~2016-11-05] VITALS: Ht 157.5 cm; Wt 82.8 kg
[2016-11-05] VITALS (7 sets, daily range): BP systolic 129–157; BP diastolic 80–98; PULSE 62–80; RESP 14–22; O2SAT 80–99
[~2016-11-05 12:25] MED LIST changes: +ASPI81TA3 PO; +CARV6.252 PO; +FURO-128 PO; +LEVO50TA6 PO; +LISI30TA5 PO; -LOPE1TAB13 PO; -METR500T PO; -POTA10TA12 PO; +SERT50TA9; +SPIR25TA PO; +VANC125C3 PO; -VANC250C3 PO
--- NOTE | 2016-11-05 12:36 | ED.REPORT ---
HPI-Dyspnea / Wheezing Date of Service Nov 05, 2016 ED Provider: Raymundo Prince DO A 71 year old female with a medical history including CHF, CAD, hypertension, asthma, atrial fibrillation, COPD, and recent C.Diff infection presents to the ED via EMS due to dyspnea onset 2 days ago. She typically only uses O2 during the night but for the past 2 days she has had to wear 4L throughout the entire day. When she is not on O2 she has right sided chest pain. C/o associated chills , productive cough with clear phlegm, diarrhea, and bilateral feet swelling. She denies fever. She was last seen at the ED for similar symptoms 09/12/16. She is taking Lasix 2x/day. Nursing Notes Stated Complaint: CP,SOB,NAUSEA Chief Complaint: Respiratory Complaints Nursing Notes Reviewed: Yes Allergies: Coded Allergies: Penicillins (Verified Allergy, Severe, ANAPHYLAXIS, 11/05/16) bupropion (Verified Allergy, Intermediate, NAUSEA, 11/05/16) fluoxetine (Verified Allergy, Unknown, 11/05/16) sulfasalazine (Verified Allergy, Unknown, UNKNOWN, 11/05/16) Uncoded Allergies: FLU VACCINE (Adverse Reaction, Severe, NAUSEA/ VOMITTING, 01/24/16) Scheduled Aspirin Chew (Aspirin Chew) 81 Mg Chew 81 MG PO DAILY Carvedilol (Carvedilol) 6.25 Mg Tablet 6.25 MG PO BIDWM Furosemide (Lasix) 40 Mg Tablet 40 MG PO BID Levothyroxine (Levothyroxine) 50 Mcg Tablet 50 MCG PO DAILYAC Lisinopril (Lisinopril) 30 Mg Tablet 30 MG PO BID Vit#96/Ferrous Fum/FA ( Tablet) 1 Each Tablet 1 TABLET PO DAILY Spironolactone (Aldactone) 25 Mg Tablet 25 MG PO DAILY Vancomycin (Vancomycin) 125 Mg Capsule 125 MG PO DIRECTED Take 1 tablet 4 times a day for 8 days, then take 1 tablet twice per day for 2 weeks, then take 1 tablet once per day for 2 weeks, and then finally 1 tablet once every other day for 2 weeks. Scheduled PRN Albuterol Sulfate (Ventolin HFA Inhaler) 200 Puff/18 Gm Inhaler 2 PUFF INH Q4-6 HRS PRN PRN PRN For Wheezing Alprazolam (Alprazolam) 0.5 Mg Tablet 0.5 MG PO BID PRN PRN For Anxiety Arformoterol Tartrate (Brovana) 15 Mcg/2 Ml Vial.neb 15 MCG IH BID PRN PRN For Shortness of Breath Budesonide (Budesonide) 1 Mg/2 Ml Ampul.neb 1 MG IH DAILY PRN PRN For Shortness of Breath Hydrocodone-Acetaminophen 5-325 mg (Hydrocodone-Acetaminophen 5-325 mg) 1 Each Tablet 1 TABLET PO BID PRN PRN For Pain Hydrocodone-Acetaminophen 5-325 mg (Hydrocodone-Acetaminophen 5-325 mg) 1 Each Tablet 1 TABLET PO Q4H PRN PRN For Pain Ipratropium [place] (Atrovent HFA) 200 Puff/12.9 Gm Inhaler 2 PUFF INH QID PRN PRN For Shortness of Breath Miscellaneous Medications Sertraline HCl (Sertraline) 50 Mg Tablet General Time Seen by MD: 12:33 Chief Complaint Shortness of breath Hx Obtained From: Patient Arrived By: Walk-in Sudden in Onset?: Yes Onset Occurred: 2 days ago Symptom Duration: Since onset Severity: Current: No pain currently Associated with: Reports: Cough, Leg swelling, Wheeze Recent Healthcare: Recent doctor visit Similar Sx Previous: Yes Past Medical History Past Medical History Notes: PCP: Dr. Galan GI: Dr. Taveras Seen in emergency department 06/25/2016 for arellano-colitis (scheduled for 1 month from now?) Admit January 2015 for respiratory failure Past Medical History Moderate-sever mitral valve regurgitation, cardiac cath 02/2014 with normal coronaries. Echo 01/2015 LVEF 40-45% severe MR. Hiatal hernia Cardiomegaly Hypothyroidism Arellano Colitis 05/2016 Diverticulosis Chronic insomnia Colon polyps Pneumonia Depression Anxiety Reports: Asthma, COPD, Congestive heart failure, Coronary artery disease, GERD, Hyperlipidemia, Hypertension Reports: Atrial fibrillation, Urinary tract infection Past Surgical History Right knee surgery in 1966 Cardiac cath 2011, 2013 Hysterectomy in 2003 Reports: Cholecystectomy Smoking History Current Every Day Smoker Social History Lives with Alcohol Use: 3-5 per day Drug Use: Denies drug use, Other Other Social History: Good social support, Ambulatory Status Independent Review of Systems Constitutional: Reports: Chills, Denies: Fever Respiratory: Reports: Prod cough, clear, Shortness of breath Cardiovascular: Reports: Chest pain, Edema Complete sys rev & neg: except as marked. GI: Reports: Diarrhea Physical Exam Initial Vital Signs Vital Signs (First) Date Time Temp Pulse Resp B/P Pulse Ox O2 Delivery O2 Flow Rate FiO2 11/05/16 12:27 36.2 77 18 145/82 80 Room Air Initial VS: Reviewed Head / Eyes: Atraumatic, Normocephalic, PERRL ENT: Mucous membranes moist, Conjunctiva normal Abdomen / GI: Soft, Non-tender, No guarding, No rebound, No distention Skin: Warm, Dry Neurologic: Alert, Oriented Psychiatric: Mood/affect normal, Behavior normal General/Constitutional: Awake, Alert Neck Vascular: Positive: JVD mild Rales / Rhonchi: Positive: Rales diffuse hypoxic tachypneic Cardiovascular: Heart rate NL, Regular rhythm, Heart sounds NL Lower Extremity / Pelvis / MS: Full range of motion mild LE edema Interpretation & Diagnostics Lab Results Interpretation Result Diagram: 11/05/16 1319 11/05/16 1319 Test 11/05/16 13:19 White Blood Count 4.1th/mm3 (3.8-10.1) Red Blood Count 2.79mil/mm3 (3.90-5.20) Hemoglobin 8.3g/dL (12.0-15.6) Hematocrit 26.7% (35.0-46.0) Mean Corpuscular Volume 95.7fL (81-100) Mean Corpuscular Hemoglobin 29.7pg (27.0-35.0) Mean Corpuscular Hemoglobin Concent 31.1% (32.0-37.0) Red Cell Distribution Width 14.9% (12.3-15.4) Platelet Count 217bil/L (150-400) Neutrophils (%) (Auto) 72.0% (40-74) Lymphocytes (%) (Auto) 11.8% (14-46) Monocytes (%) (Auto) 14.7% (4-12) Eosinophils (%) (Auto) 1.0% (0-5) Basophils (%) (Auto) 0.5% (0-3) D-Dimer 1.20mg/L FEU (<0.50) Sodium Level 142mEq/L (134-144) Potassium Level 2.5mEq/L (3.5-5.2) Chloride Level 87mEq/L (97-108) Carbon Dioxide Level 43mmol/L (18-29) Blood Urea Nitrogen 13mg/dL (8-27) Creatinine 1.14mg/dL (0.57-1.00) Estimat Glomerular Filtration Rate 68mL/min (>59) Glucose Level 98mg/dL (60-99) Lactic Acid Level 0.8mmol/L (0.4-2.0) Calcium Level 10.7mg/dL (8.5-10.1) Magnesium Level 1.4mg/dL (1.6-2.6) Total Bilirubin 0.4mg/dL (0.0-1.2) Aspartate Amino Transf (AST/SGOT) 19U/L (0-50) Alanine Aminotransferase (ALT/SGPT) 9U/L (0-32) Alkaline Phosphatase 80U/L (25-165) Troponin T 0.024ug/L (0.0-0.011) Pro-B-Type Natriuretic Peptide 1538pg/mL (0-301) Total Protein 6.4g/dL (6.4-8.4) Albumin 3.3g/dL (3.4-5.0) ECG Interpretation ECG Interpretation: LVH Time: 12:46 Interpreted by: ED physician Normal ECG Interpretation: Normal sinus rhythm (66) X-Ray Chest Interpretation Chest Xray Interpretation: IMPRESSION: Increased pulmonary vascularity with coarsened bibasilar opacities. Findings are suggestive of edema. Underlying areas of airspace disease within the bases cannot be excluded. Dictated by: Fannie Tabares M.D. on 11/05/2016 at 13:01 Approved by: Fannie Tabares M.D. on 11/05/2016 at 13:01 View: Portable Interpretation / Wet Read by: Interpret - Radiologist Re-Eval/Medical Decision Med Decision/Clinical Course Hypoxic respiratory failure with associated severe electrode abnormalities, suspect the patient should be admitted however she is persistently reluctant to do so. Currently awaiting electrolyte repletion and CT angiogram of the chest. Care transferred to Dr. briseida Rivera Re-Evaluation/Progress : Time of Eval: 13:34 Re-Evaluation/Progress Note: Pt rechecked. Recommend that the pt stays in the hospital for further evaluation. She is very reluctant to stay in the hospital Counseled Regarding: Diagnosis, Lab results, Need for admission Discharge & Departure Shift Change Sign-Out Patient Care Transferred: Yes Discussed Complaint(s): Yes Laboratory Evaluation: Ordered, not yet done Imaging Studies: Ordered, not yet done Impression: Primary Impression: CHF (congestive heart failure) Congestive heart failure type: unspecified congestive heart failure type Congestive heart failure chronicity: unspecified congestive heart failure chronicity Qualified Code: I50.9 - Heart failure, unspecified Disposition: ADMITTED TO HOSPITAL Discharge Condition All VS Reviewed: Yes Condition: Stable Referrals: Davin Galan MD (PCP) Care Transferred to: Dr. Klein Care Transferred at: 15:01 Scribe Attestation Portion of this note were transcribed by Amy Thompson. I, Dr. Prince, personally performed the history, physical exam, and medical decision-making: I reviewed and confirmed the accuracy for the information in the transcribed note. Signed by: dian Evans, 11/05/16 1500 copies to: Davin Galan MD, Timothy S DO Nov 05, 2016 12:36 Amy Thompson Nov 05, 2016 13:05
--- NOTE | 2016-11-05 13:03 | DRSVH ---
PROCEDURE: X-RAY CHEST ONE VIEW, PORTABLE ([id number]) INDICATIONS: SOB TECHNIQUE: One view of the chest was acquired. COMPARISON: [facility], CR, XR CHEST 1VW (PORTABLE), 09/13/2016, 10:30. FINDINGS: Surgical changes and devices: None. Lungs and pleura: There is an overall appearance of increased pulmonary vascularity. Slight appearanc e of coarsened interstitial bibasilar opacities are noted. Mediastinum: Mediastinal contours appear normal. Heart size is normal. Bones and chest wall: No suspicious bony lesions. Overlying soft tissues appear unremarkable. IMPRESSION: Increased pulmonary vascularity with coarsened bibasilar opacities. Findings are suggesti ve of edema. Underlying areas of airspace disease within the bases cannot be excluded. Dictated by: Fannie Tabares M.D. on 11/05/2016 at 13:01 Approved by: Fannie Tabares M.D. on 11/05/2016 at 13:01
[2016-11-05] MEDS ORDERED: Furosemide 10 mg/mL 4 mL Inj IVPUSH ONE (13:05)
[2016-11-05] MEDS ORDERED: Nitroglycerin 2% 1 Gm Ointment TOPICAL ONE (13:05)
[2016-11-05 13:26] LABS: BASOPHILS % (AUTO) 0.5 % (0-3); MONOCYTES % (AUTO) 14.7 % (4-12); Mean Corpuscular Hemoglobin 29.7 pg (27.0-35.0); Mean Corpuscular Volume 95.7 fL (81-100); Platelet Count 217 bil/L (150-400)
[2016-11-05 13:52] LABS: Magnesium 1.4 mg/dL (1.6-2.6)
[2016-11-05 13:55] LABS: TROPONIN T 0.024 ug/L (0.0-0.011)
[2016-11-05] MEDS ORDERED: ALPRAZolam 0.5 mg Tablet PO ONE (14:10)
[2016-11-05] MEDS ORDERED: KCl 40 mEq/D5W 500 mL 40 MEQ in IV Premix 1 EACH IV ONE (14:10)
[2016-11-05] MEDS ORDERED: Magnesium Sulf 2 Gm/50mL Water 2 GM in IV Premix 1 EACH IV ONE (14:10)
[2016-11-05] MEDS ORDERED: Potassium Chloride 20 mEq SR Tablet PO ONE ×2 (14:10→20:50)
--- NOTE | 2016-11-05 16:13 | DRSVH ---
PROCEDURE: CT ANGIO CHEST PULMONARY EMBOLISM ([id number]) INDICATIONS: hypoxia, elevated ddimer TECHNIQUE: After the administration of intravenous contrast, 2 mm thick sections acquired from the pulmonary api sammy to the posterior costophrenic angles. 3-dimensional maximum intensity projection (MIP) coronal a nd sagittal reformats were then acquired through the thorax. For radiation dose reduction, the follo wing was used: automated exposure control, adjustment of mA and/or kV according to patient size. COMPARISON: [facility], CT, CT ANGIO CHEST PE, 08/11/2015, 8:19. FINDINGS: Image quality: Excellent. Pulmonary arteries: Pulmonary arteries demonstrate areas of heterogeneous filling defect extending p redominantly within the right upper and middle lobes. These areas of defect are identified predominat leonela within the tertiary branches. Lungs and pleura: Groundglass opacities and areas of ill-defined nodularity are present within the jeremie ngs bilaterally, left greater than right. There are areas of interstitial patchy opacity within the r ight middle lobe, overall nonspecific. The previously identified 9 mm nodule in the left upper lobe h as markedly increased in size currently measuring 18 mm AP by 18 mm transverse. There has been interv al development of mild bilateral pleural effusions. Mediastinum: Heart size is normal, without pericardial effusion. No mediastinal or hilar adenopathy . Thoracic aorta is normal in caliber and enhancement. Esophagus is normal in caliber, without hiat al hernia. Bones and chest wall: No suspicious bony lesions. Ribs and thoracic spine appear intact throughout. Thyroid gland is unremarkable. No axillary or supraclavicular adenopathy. Abdomen: Visualized upper abdominal solid organs appear normal in the early arterial phase of enhanc ement. IMPRESSION: 1. Heterogeneous filling defects predominantly within the right upper and middle bladder lobes within the tertiary branches of the pulmonary artery most consistent with pulmonary emboli. 2. Bilateral appearance of prominent groundglass like opacities within the lungs bilaterally. These c an be seen with infection or inflammation. 3. Marked interval increase in size of previously identified sub-centimeters right upper lobe nodule, concerning for neoplastic disease. In addition, the lungs demonstrate interval development of bilate ral pleural effusions as well as ill-defined areas of nodular coarsening. The latter could be related to areas of edema or poorly visualized areas of nodularity partially obscured by groundglass opaciti es and effusions. Recommend interval followup to document resolution. The above findings were discussed with Dr. Jayy Klein on 11/05/16 at 4:08 PM. Dictated by: Fannie Tabares M.D. on 11/05/2016 at 16:04 Approved by: Fannie Tabares M.D. on 11/05/2016 at 16:12
[2016-11-05] MEDS ORDERED: Alum-Mag Hydrox-Simeth 30 mL Suspension PO PRN ×2 (16:30→17:35)
[2016-11-05] MEDS ORDERED: Heparin 25K Unit/500mL 0.45 NS 25,000 UNIT in IV Premix 1 EACH IV ONE (16:30)
[2016-11-05] MEDS ORDERED: Heparin 5,000 Unit/mL Inj IVPUSH ONE ×2 (16:30→17:30)
[2016-11-05] MEDS ORDERED: Ondansetron 2 mg/mL 2 mL Inj IVPUSH PRN (16:30)
[2016-11-05] MEDS ORDERED: Polyethylene Glycol (PEG) 17 Gm Powder PO PRN (17:35)
--- NOTE | 2016-11-05 17:54 | PCM.HPMED ---
Subjective Date of Service Nov 05, 2016 Primary Provider: Admitting Physician: Nikita Brewer MD Primary Care Physician: Davin Galan MD Attending Physician: Nikita Brewer MD Admit Status: From the Emergency Department Chief Complaint: Shortness of breath History of Present Illness: Kayy No is a 71 year old female with a medical history including CHF, CAD , hypertension, asthma, atrial fibrillation, COPD, and recent C.Diff infection presented to [facility] Emergency Department via EMS due to dyspnea onset 2 days ago. She typically only uses oxygen 4L during the night but for the past 2 days she has had to wear 4L throughout the entire day. She reports her shortness of breath gives her great deal of anxiety and left sided chest pain at times. Patient reports associated chills, productive cough with clear phlegm,chronic diarrhea, patient just finished a course of Vanco for C-diff on . She denies fever. She was last hospitalized for sepsis on 09/12/16. In the Emergency Department her vital signs were: temperature 36.2C, pulse 77, respiration rate 18, blood pressure 145/82, pulse oximetry 80 % on room air. EKG wan normal: sinus rhythm with rate of 66. Chest x-ray suggestive of edema. CT angio chest reveled heterogeneous filling defects predominantly within the right upper and middle bladder lobes within the tertiary branches of the pulmonary artery most consistent with pulmonary emboli. Patient's lab was significant for white blood cell count 4.1, hemoglobin 8.3, hematocrit 26.7, platelets 217. Patient's CMP was significant for potassium of 2.5, creatinine of 1.14, calcium 10.7, magnesium 1.4, troponin 0.024, BNP 1568. Review of Systems: Comprehensive review of systems has been conducted with the patient and was found to be negative with the exception of what is noted in the history of present illness. Allergies Coded Allergies: Penicillins (Verified Allergy, Severe, ANAPHYLAXIS, 11/05/16) bupropion (Verified Allergy, Intermediate, NAUSEA, 11/05/16) fluoxetine (Verified Allergy, Unknown, 11/05/16) sulfasalazine (Verified Allergy, Unknown, UNKNOWN, 11/05/16) Uncoded Allergies: FLU VACCINE (Adverse Reaction, Severe, NAUSEA/ VOMITTING, 01/24/16) Home Medications Scheduled Aspirin Chew (Aspirin Chew) 81 Mg Chew 81 MG PO DAILY Carvedilol (Carvedilol) 6.25 Mg Tablet 6.25 MG PO BIDWM Furosemide (Lasix) 40 Mg Tablet 40 MG PO BID Levothyroxine (Levothyroxine) 50 Mcg Tablet 50 MCG PO DAILYAC Lisinopril (Lisinopril) 30 Mg Tablet 30 MG PO BID Vit#96/Ferrous Fum/FA ( Tablet) 1 Each Tablet 1 TABLET PO DAILY Spironolactone (Aldactone) 25 Mg Tablet 25 MG PO DAILY Vancomycin (Vancomycin) 125 Mg Capsule 125 MG PO DIRECTED Take 1 tablet 4 times a day for 8 days, then take 1 tablet twice per day for 2 weeks, then take 1 tablet once per day for 2 weeks, and then finally 1 tablet once every other day for 2 weeks. Scheduled PRN Albuterol Sulfate (Ventolin HFA Inhaler) 200 Puff/18 Gm Inhaler 2 PUFF INH Q4-6 HRS PRN PRN PRN For Wheezing Alprazolam (Alprazolam) 0.5 Mg Tablet 0.5 MG PO BID PRN PRN For Anxiety Arformoterol Tartrate (Brovana) 15 Mcg/2 Ml Vial.neb 15 MCG IH BID PRN PRN For Shortness of Breath Budesonide (Budesonide) 1 Mg/2 Ml Ampul.neb 1 MG IH DAILY PRN PRN For Shortness of Breath Hydrocodone-Acetaminophen 5-325 mg (Hydrocodone-Acetaminophen 5-325 mg) 1 Each Tablet 1 TABLET PO BID PRN PRN For Pain Hydrocodone-Acetaminophen 5-325 mg (Hydrocodone-Acetaminophen 5-325 mg) 1 Each Tablet 1 TABLET PO Q4H PRN PRN For Pain Ipratropium [place] (Atrovent HFA) 200 Puff/12.9 Gm Inhaler 2 PUFF INH QID PRN PRN For Shortness of Breath PMH Moderate-sever mitral valve regurgitation, cardiac cath 02/2014 with normal coronaries. Hiatal hernia Cardiomegaly Hypothyroidism [place] Colitis 05/2016 Diverticulosis Chronic insomnia Colon polyps Pneumonia Depression Anxiety COPD Congestive heart failure Coronary artery disease GERD Hyperlipidemia Hypertension Surgical History Right knee surgery in 1967 Cardiac cath 2011, 2014 Hysterectomy in 2004 Reports: Cholecystectomy Family History Emphysema (father) Social History Hx Alcohol Use: Yes (daily) Hx Substance Use: No Hx Tobacco Use: Yes (1-2 drinks per day) Smoking Status: Current Every Day Smoker Living Arrangement: with Family Exam Vital Signs Vital Sign - Last Date Time Temp Pulse Resp B/P Pulse Ox O2 Delivery O2 Flow Rate FiO2 11/05/16 17:00 62 14 156/80 96 Nasal Cannula 2 11/05/16 12:27 36.2 Exam General: Chronically appearing female sitting at the edge of the bed HEENT: NC/AT, eyes, PERRLA, EOMI, neck, soft supple, no adenopathy, mild JVD, no masses, no thyromegaly, throat mucous membranes pink and moist Lungs: Diffuse rales, no use of accessory muscles of respiration Heart: Regular rate and rhythm, no murmur, S1-S2 present, no rub, no click, distant heart sounds Abdomen: Soft, nontender, nondistended, bowel sounds active, no rebound, no guarding Muscular skeletal: No edema Neurologic: Grossly neurologically intact Psychiatric: Appropriate mood and affect Lab and Diagnostics Result Diagram: 11/05/16 1319 11/05/16 1319 X-Rays, CTs and MRIs X-RAY CHEST IMPRESSION: Increased pulmonary vascularity with coarsened bibasilar opacities. Findings are suggestive of edema. Underlying areas of airspace disease within the bases cannot be excluded. Dictated and approved by: Fannie Tabares M.D. on 11/05/2016 at 13:01 CT ANGIO CHEST IMPRESSION: 1. Heterogeneous filling defects predominantly within the right upper and middle bladder lobes within the tertiary branches of the pulmonary artery most consistent with pulmonary emboli. 2. Bilateral appearance of prominent groundglass like opacities within the lungs bilaterally. These can be seen with infection or inflammation. 3. Marked interval increase in size of previously identified sub-centimeters right upper lobe nodule, concerning for neoplastic disease. In addition, the lungs demonstrate interval development of bilateral pleural effusions as well as ill-defined areas of nodular coarsening. The latter could be related to areas of edema or poorly visualized areas of nodularity partially obscured by groundglass opacities and effusions. Recommend interval followup to document resolution. Dictated and approved by: Fannie Tabares M.D. on 11/05/2016 at 16:04 Assessment & Plan Kayy No is a 71 year old female with a medical history including CHF, CAD , hypertension, asthma, atrial fibrillation, COPD, and recent C.Diff infection presented to [facility] Emergency Department via EMS due to dyspnea onset 2 days ago. Patient has been admitted for treatment and management of pulmonary emboli and severe hypokalemia. 1. Pulmonary emboli, present on admission. Active -CT angio chest revealed heterogeneous filling defects predominantly within the right upper and middle bladder lobes within the tertiary branches of the pulmonary artery most consistent with pulmonary emboli. -Continue Heparin drip.will consider initiation of oral Ac once plan for lung mass biopsy is discussed with IR - likely provoked one by new diagnosis of lung mass 2. Hypokalemia, present on admission. Active -Potassium of 2.5 on admission. Replaced with Potassium Chloride 40 meq -Repeat BMP at 8 pm -Continue to monitor 3. Elevated troponin, present on admission. Active -Patient has intermittent chest pain no different than usual baseline. EKG shows sinus rhythm, no acute ST elevation -Less likely acute ischemia, possibly demand due to stress and PE -echo ordered -We will trend troponin 4. Possible CHF exacerbation, present on admission. Active -Chest x-ray findings suggestive of pulmonary edema -Increased Pro-BMP -Furosemide 40 mg IV push given in ED -ECHO in 09/14 revealed left ventricular ejection fraction of 50% and severe mitral regurgitation. -Continue to monitor -Consider restarting home Furosemide tomorrow 5. COPD with out exacerbation, present on admission. Active -Continue home albuterol inhaler, Brovana, Budesonide. -Supplemental O2 as needed -no need for steroid for now -no evidence of infection,afebrile,no leukocytosis ,will avoid abx unless clear evidence of infection given history of recurrent c.dif 6. Right upper lobe lung mass, present on admission. Active -CT angio chest revealed marked interval increase in size of previously identified sub-centimeters right upper lobe nodule, concerning for neoplastic disease. In addition, the lungs demonstrate interval development of bilateral pleural effusions as well as ill-defined areas of nodular coarsening. The latter could be related to areas of edema or poorly visualized areas of nodularity partially obscured by groundglass opacities and effusions. -will consider IR biopsy once stable 7.Recent c.dif -completed vanco po on October 18 -continues to have on and off loose stool .will check c.dif . 8.Anemia -stool occult blood requested -continue Ac ,benefit outweighs risk 9.hypothyroidism -stable 10.GERD inpatient status full code Pain Evaluation: Adequate Pain Control VTE Prophylaxis: Other (heparin drip) Resuscitation Status: Limited Interventions (compressions, cardioversion/ defibrillation, BiPAP, medications and IV fluid) Time spent 55 minutes Attending Statement The patient was seen and examined together with Dr. Schilling on 11/05/2016 and I agree with the history, exam and plan as outlined in the note above. copies to: Davin Galan MDTeresita Lucero Nov 05, 2016 17:54 Nikita Brewer MD Nov 06, 2016 06:40 -Continue Heparin drip 2. Hypokalemia, present on admission. Active -Potassium of 2.5 on admission. Replaced with Potassium Chloride 40 meq -Repeat BMP at 8 pm -Continue to monitor 3. Elevated troponin, present on admission. Active -Patient has intermittent chest pain no different than usual baseline. EKG shows sinus rhythm, no acute ST elevation -Less likely acute ischemia, possibly demand due to stress -We will trend troponin 4. Possible CHF exacerbation, present on admission. Active -Chest x-ray findings suggestive of pulmonary edema -Increased Pro-BMP -Furosemide 40 mg IV push given in ED -ECHO in 09/14 revealed left ventricular ejection fraction of 50% and severe mitral regurgitation. -Continue to monitor -Consider restarting home Furosemide tomorrow 5. Possible COPD exacerbation, present on admission. Active -Continue home albuterol inhaler, Brovana, Budesonide. -Supplemental O2 as needed -Consider Prednisone 40 mg x 5 days if needed 6. Possible CHF exacerbation, present on admission. Active -Chest x-ray findings suggestive of pulmonary edema -Patient is on furosemide 40 mg by mouth twice a day at home -Furosemide 40 mg IV push given in ED -We will monitor for now and restart her home furosemide tomorrow if needed 7. Right upper lobe lung nodule, present on admission. Active -CT angio chest revealed marked interval increase in size of previously identified sub-centimeters right upper lobe nodule, concerning for neoplastic disease. In addition, the lungs demonstrate interval development of bilateral pleural effusions as well as ill-defined areas of nodular coarsening. The latter could be related to areas of edema or poorly visualized areas of nodularity partially obscured by groundglass opacities and effusions. -Recommend interval followup to document resolution. Pain Evaluation: Adequate Pain Control VTE Prophylaxis: Other (heparin drip) Resuscitation Status: Limited Interventions (compressions, cardioversion/ defibrillation, BiPAP, medications and IV fluid) Teresita Schilling DO Nov 05, 2016 17:54 3. Marked interval increase in size of previously identified sub-centimeters right upper lobe nodule, concerning for neoplastic disease. In addition, the lungs demonstrate interval development of bilateral pleural effusions as well as ill-defined areas of nodular coarsening. The latter could be related to areas of edema or poorly visualized areas of nodularity partially obscured by groundglass opacities and effusions. Recommend interval followup to document resolution. Dictated and approved by: Fannie Tabares M.D. on 11/05/2016 at 16:04 Assessment & Plan Kayy No is a 71 year old female with a medical history including CHF, CAD , hypertension, asthma, atrial fibrillation, COPD, and recent C.Diff infection presented to [facility] Emergency Department via EMS due to dyspnea onset 2 days ago. Patient has been admitted for 1. Pulmonary emboli, present on admission. Active -CT angio chest revealed heterogeneous filling defects predominantly within the right upper and middle bladder lobes within the tertiary branches of the pulmonary artery most consistent with pulmonary emboli. -Continue Heparin drip 2. Hypokalemia, present on admission. Active -Potassium of 2.5 on admission. Replaced with Potassium Chloride 40 meq -Repeat BMP at 8 pm -Continue to monitor 3. COPD exacerbation -DuoNeb -Home Albuterol CHF -Chest x-ray findings suggestive of pulmonary edema Right upper lobe lung nodule, present on admission. Active -CT angio chest revealed marked interval increase in size of previously identified sub-centimeters right upper lobe nodule, concerning for neoplastic disease. In addition, the lungs demonstrate interval development of bilateral pleural effusions as well as ill-defined areas of nodular coarsening. The latter could be related to areas of edema or poorly visualized areas of nodularity partially obscured by groundglass opacities and effusions. -Recommend interval followup to document resolution. Teresita Schilling DO Nov 05, 2016 17:54 pleural effusions as well as ill-defined areas of nodular coarsening. The latter could be related to areas of edema or poorly visualized areas of nodularity partially obscured by groundglass opacities and effusions. -Recommend interval followup to document resolution. Teresita Schilling DO Nov 05, 2016 17:54
[2016-11-05] MEDS ORDERED: Albuterol 1.25 mg/3 mL Inhalation Solution NEB PRN (18:20)
[2016-11-05] MEDS ORDERED: Ipratropium HFA 200 Puff 12.9 Gm Inhaler INHALATION PRN (18:45)
[2016-11-05] MEDS ORDERED: Arformoterol 15 mCg/2 mL Inhalation Solution INHALATION PRN (18:45)
[2016-11-05] MEDS ORDERED: TRAZ-118 PO (19:29)
[2016-11-05] MEDS ORDERED: LEVO200T6 PO (19:29)
[2016-11-05] MEDS ORDERED: POTA10CA42 PO (19:29)
--- NOTE | 2016-11-05 19:31 | NUR ---
Admit to PCC. Pt admitted to floor at 17:15. Vitals stable, pt having 6/10 chest tightness, Dr aware. admit completed.
[2016-11-05] MEDS ORDERED: OMEP40CA36 PO (19:37)
[2016-11-05] MEDS ORDERED: FURO40TA4 PO (19:37)
[2016-11-05] MEDS ORDERED: LISI40TA PO (19:37)
[2016-11-05] MEDS ORDERED: MAGN200T PO (19:37)
[2016-11-05] MEDS ORDERED: SERT20OR6 PO (19:37)
[2016-11-05] MEDS ORDERED: ONDA4TAB12 PO (19:37)
[2016-11-05] MEDS ORDERED: RANI300T4 PO (19:37)
[2016-11-05] MEDS ORDERED: ACET325T51 PO (19:40)
[2016-11-05] MEDS ORDERED: OXYC-474 PO (19:40)
[2016-11-05] MEDS ORDERED: TRIA10.8 NS (19:40)
[2016-11-05] MEDS ORDERED: Albuterol 2.5 mg/3 mL Inhalation Solution NEB PRN (20:00)
[2016-11-05 20:22] LABS: Magnesium 1.9 mg/dL (1.6-2.6)
[2016-11-05] MEDS: Albuterol-Ipratropium 3 mL Inhalation Solution NEB SCH (20:45)
[2016-11-05] MEDS ORDERED: Heparin 5,000 Unit/mL Inj IVPUSH PRN ×2 (20:50→22:35)
[2016-11-05] MEDS ORDERED: Potassium Chloride Inj 30 MEQ in Dextrose 5% 500 ML IV ONE (20:50)
[2016-11-05] MEDS: ALPRAZolam 0.5 mg Tablet PO PRN (20:51)
[2016-11-05] MEDS ORDERED: Heparin 25K Unit/500mL 0.45 NS 25,000 UNIT in IV Premix 1 EACH IV SCH (22:35)
[2016-11-06] VITALS (10 sets, daily range): BP systolic 125–166; BP diastolic 74–110; PULSE 62–71; RESP 16–20; O2SAT 97–100
[2016-11-06] MEDS ORDERED: Heparin 5,000 Unit/mL Inj SUBQ SCH (00:30)
[2016-11-06] MEDS: Albuterol-Ipratropium 3 mL Inhalation Solution NEB SCH ×4 (02:30→20:18)
--- NOTE | 2016-11-06 02:33 | NUR ---
Chest Pain Pt having mid sternal and left chest pain 7/10 at start of shift which she described as intermittent though had difficulty describing how it hurt. Pt stated it hurt more w/ deep breaths and did not radiate. Pt did have left upper arm pain as well but it resolved with slowing rate of potassium rider going into left AC. All vitals stable. Stat EKG ordered and reviewed w/ kiln charger Rachel, who saw no significant or concerning changes from previous EKG. notified, pt had no nitro/morphine orders. By then pt was reporting pain down to 3-4, stated "I'm doing okay." Pt stated that when this happened previously it resolved with taking Xanax, pt had already taking this. aware and stated she would evaluate. When reassessed pt had fallen asleep. Soon after she woke to use the BSC and when asked about her chest pain she stated it must have gone away since she fell asleep. Pt did request Tylenol for her back pain at that time. Pt instructed to inform nursing if chest pain returned. Pt verbalized understanding. ordered PRN nitro tabs. No further c/o chest pain w/ reassessments.
--- NOTE | 2016-11-06 03:28 | NUR ---
PTT/Potassium PTT critical at 217, heparin drip stopped, stat PTT lab ordered and notified per protocol. Next PTT 143, heparin gtt restarted per protocol w/ decreased rate. Potassium critical at 2.7, aware and ordered replacement, labs to be checked this morning. Addendum: 11/06/16 at 0634 by NAKUL YATES RN Potassium this morning still 2.7 after replacement. notified of critical result and previous replacement. ordered to check magnesium, no other orders at this time.
[2016-11-06 03:46] LABS: BASOPHILS % (AUTO) 0.5 % (0-3); EOSINOPHILS % (AUTO) 4.4 % (0-5); MONOCYTES % (AUTO) 19.8 % (4-12); Mean Corpuscular Hemoglobin 29.5 pg (27.0-35.0); NEUTROPHILS % (AUTO) 52.1 % (40-74); Platelet Count 186 bil/L (150-400)
[2016-11-06 04:52] LABS: TROPONIN T 0.027 ug/L (0.0-0.011)
[2016-11-06] MEDS ORDERED: KCl 40 mEq/D5W 500 mL 40 MEQ in IV Premix 1 EACH IV ONE ×2 (07:00→17:55)
[2016-11-06] MEDS ORDERED: Potassium Chloride Inj 30 MEQ in Dextrose 5% 500 ML IV ONE (07:35)
[2016-11-06] MEDS ORDERED: Magnesium Sulf 2 Gm/50mL Water 2 GM in IV Premix 1 EACH IV ONE (07:35)
[2016-11-06] MEDS ORDERED: Potassium Chloride 20 mEq SR Tablet PO ONE ×2 (07:35→20:20)
[2016-11-06] MEDS ORDERED: 0.9% Sodium Chloride 250 ML ONE (08:33)
--- NOTE | 2016-11-06 10:18 | PCM.PNMED ---
Subjective Date of Service Nov 06, 2016 Subjective Patient reports she is feeling about the same. Still c/o intermittent left chest pain and back pain. During the night heparin drip was stopped for a wide due to critical PTT but resumed later. Potassium was replaced overnight as well. Currently she denies chest pain, heart palpitations, nausea, abdominal pain. Exam Vital Signs Vital Sign - Last Date Time Temp Pulse Resp B/P Pulse Ox O2 Delivery O2 Flow Rate FiO2 11/06/16 08:49 Supplement Oxygen 11/06/16 08:49 36.4 71 166/103 99 3.00 11/06/16 07:45 18 Exam General: Chronically appearing female sitting at the edge of the bed HEENT: NC/AT, eyes, PERRLA, EOMI, neck, soft supple, no adenopathy, mild JVD, no masses, no thyromegaly, throat mucous membranes pink and moist Lungs: Diffuse rales, no use of accessory muscles of respiration Heart: Regular rate and rhythm, no murmur, S1-S2 present, no rub, no click, distant heart sounds Abdomen: Soft, nontender, nondistended, bowel sounds active, no rebound, no guarding Muscular skeletal: No edema Neurologic: Grossly neurologically intact Psychiatric: Appropriate mood and affect Lab and Diagnostics Result Diagram: 11/06/1632911/06/16329 X-Rays, CTs and MRIs X-RAY CHEST IMPRESSION: Increased pulmonary vascularity with coarsened bibasilar opacities. Findings are suggestive of edema. Underlying areas of airspace disease within the bases cannot be excluded. Dictated and approved by: Fannie Tabares M.D. on 11/05/2016 at 13:01 CT ANGIO CHEST IMPRESSION: 1. Heterogeneous filling defects predominantly within the right upper and middle bladder lobes within the tertiary branches of the pulmonary artery most consistent with pulmonary emboli. 2. Bilateral appearance of prominent groundglass like opacities within the lungs bilaterally. These can be seen with infection or inflammation. 3. Marked interval increase in size of previously identified sub-centimeters right upper lobe nodule, concerning for neoplastic disease. In addition, the lungs demonstrate interval development of bilateral pleural effusions as well as ill-defined areas of nodular coarsening. The latter could be related to areas of edema or poorly visualized areas of nodularity partially obscured by groundglass opacities and effusions. Recommend interval followup to document resolution. Dictated and approved by: Fannie Tabares M.D. on 11/05/2016 at 16:04 Assessment & Plan Kayy No is a 71 year old female with a medical history including CHF, CAD , hypertension, asthma, atrial fibrillation, COPD, and recent C.Diff infection presented to [facility] Emergency Department via EMS due to dyspnea onset 2 days ago. Patient has been admitted for treatment and management of pulmonary emboli and severe hypokalemia.Hospital day 2. 1. Pulmonary emboli, present on admission. Active -CT angio chest revealed heterogeneous filling defects predominantly within the right upper and middle bladder lobes within the tertiary branches of the pulmonary artery most consistent with pulmonary emboli. -Continue Heparin drip will consider initiation of oral Ac tomorrow once we get and discuss NOACs copay with patient -Likely provoked one by new diagnosis of lung mass 2. Hypokalemia, present on admission. Active -Most likely due to home Lasix w/i standard replacement of K, Beta-raina -Potassium of 2.7 this morning. Replaced with Potassium Chloride 40 meq IV -Repeat potassium at 1500 -Continue to monitor 3. Elevated troponin, present on admission. Active -Patient has intermittent chest pain no different than usual baseline. EKG shows sinus rhythm, no acute ST elevation -Less likely acute ischemia, possibly demand due to stress and PE -Echo ordered 4. CHF without exacerbation, present on admission. Active -Chest x-ray findings suggestive of pulmonary edema -Increased Pro-BMP -Furosemide 40 mg IV push given in ED -ECHO in 09/14 revealed left ventricular ejection fraction of 50% and severe mitral regurgitation. -Continue to monitor -Resume home Furosemide, 40 mg once a day 5. COPD with out exacerbation, present on admission. Active -Continue home albuterol inhaler, Brovana, Budesonide. -Supplemental O2 as needed -No need for steroid for now -No evidence of infection,afebrile,no leukocytosis ,will avoid abx unless clear evidence of infection given history of recurrent c.dif 6. Right upper lobe lung mass, present on admission. Active -CT angio chest revealed marked interval increase in size of previously identified sub-centimeters right upper lobe nodule, concerning for neoplastic disease. In addition, the lungs demonstrate interval development of bilateral pleural effusions as well as ill-defined areas of nodular coarsening. The latter could be related to areas of edema or poorly visualized areas of nodularity partially obscured by groundglass opacities and effusions. -spoke with IR,they recommend outpatient IR once more stable with lovenox bridging 7. Hypercalcemia, present on admission. Active -Most likely due to neoplasm -PTH and Vit D pending 8.Recent c.dif, presumed stable -Completed vanco po on October 18 -Continues to have on and off loose stool, will check c.dif . 9. Anemia, chronic, present on admission. Active -Stool occult blood requested -Continue Ac ,benefit outweighs risk 10.Hypothyroidism -Stable, continue Levothyroxine 50 mcg daily 11.GERD -Pantoprazole Admission status: Inpatient Pain Evaluation: Adequate Pain Control GI Prophylaxis: Proton Pump Inhibitor VTE Prophylaxis: Other (heparin drip) Resuscitation Status: Limited Interventions (compressions, cardioversion/ defibrillation, BiPAP, medications and IV fluid) Attending Statement The patient was seen and examined together with Dr. Schilling on 11/06/2016 and I agree with the history, exam and plan as outlined in the note above. Teresita Schilling DO Nov 06, 2016 10:18 Nikita Brewer MD Nov 07, 2016 06:44
[2016-11-06] MEDS: Pantoprazole 40 mg ER24 Tablet PO SCH (11:30)
--- NOTE | 2016-11-06 12:15 | NUR ---
Assumed Care Received report from Florentin Sánchez RN and assumed care at 1215. Went into the patient room and was introduced. Pt asked for a Xanax due to anxiety which was given to her. Care continues.
[2016-11-06] MEDS: ALPRAZolam 0.5 mg Tablet PO PRN ×2 (12:23→19:50)
--- NOTE | 2016-11-06 13:40 | NUR ---
IV Compatibility She has two IV's in her left arm with one being in the forearm (IV Heparin running) and the other in her left AC (IV Potassium running). Due to her bending her left arm it kept becoming distally occluded and causing the IV pump to beep. She complained about this numerous times. Checked with Pharmacist Amanda about IV compatibility of potassium and heparin as the Micromedex system was down. She looked it up and said they were compatible. Switched her IV potassium from the AC into the Y-site of her left forearm IV. Saline locked her left AC site IV. The pump has not beeped since and she has not complained about it. Care continues.
--- NOTE | 2016-11-06 16:03 | NUR ---
Social Work Note: Initial Assessment Data& Assessment: EMR reviewed. SW met with pt at bedside to discuss discharge planning, SW role explained. Kayy No is a 71 year old female admitted on 11/05/2016 for PE, hypoxia and lung mass. Pt has Medicare and [employer] supplemental insurance coverage. Pt sees Davin Galan MD for primary care. Pt lives in [place] with her spouse and is independent at baseline, however, pt explained that she is not as active the last couple of months. Pt was recently at [facility] for rehab a couple of weeks ago. Pt has never had home health services. Pt does not have any DME. Pt explained she is not interested in participating in any Physical Therapy during this hospitalization and not interested in any physical therapy after discharge. Pt does not have LT insurance or VA benefits. Pt wears 4L of oxygen at night at baseline but is requiring it during the day as well recently. Pt drives her to any appointments. Pt will transport her home when medically ready. Pt denies any other needs at this time. SW to continue to follow if any needs arise. Plan: Anticipated discharge home via POV when medically ready. Pt declining home health and other resources at this time. Pt denies any other needs at this time. SW to continue to follow if any needs arise. [facility] Addendum: 11/06/16 at 1609 by OSIRIS KENNEDY Amended: Links added.
--- NOTE | 2016-11-06 19:07 | NUR ---
Potassium Per Dr. Brewer a potassium lab draw needs to be done once her third IV potassium bag is completed. It was hung about 1730. Notified Gale LOYOLA from analytics lead. Care continues.
[2016-11-06] MEDS: Ondansetron 2 mg/mL 2 mL Inj IVPUSH PRN (19:59)
[2016-11-07] VITALS (10 sets, daily range): BP systolic 155–179; BP diastolic 102–116; PULSE 65–88; RESP 16–24; O2SAT 93–100
[2016-11-07 01:08] LABS: Vitamin D, 25-Hydroxy 52.7 ng/mL (30.0-100.0)
[2016-11-07] MEDS: Ondansetron 2 mg/mL 2 mL Inj IVPUSH PRN ×2 (01:23→07:51)
[2016-11-07 03:12] LABS: BASOPHILS % (AUTO) 0.5 % (0-3); EOSINOPHILS % (AUTO) 3.7 % (0-5); MONOCYTES % (AUTO) 12.3 % (4-12); Mean Corpuscular Hemoglobin 29.8 pg (27.0-35.0); Mean Corpuscular Volume 95.8 fL (81-100); NEUTROPHILS % (AUTO) 64.7 % (40-74); Platelet Count 215 bil/L (150-400)
--- NOTE | 2016-11-07 05:49 | NUR ---
Abdominal Pain Pt c/o constant cramping abd pain that is not relieved by normal oxycodone dose. Pt also c/o dyspepsia and nausea. Medicated with zofran and xanax. Pt still uncomfortable. MD zhong, made aware. Received orders for Tums and Restoril for sleep. Tums had little effect. Pt medicated again with PRN oxycodone.
[2016-11-07] MEDS: Pantoprazole 40 mg ER24 Tablet PO SCH (07:51)
[2016-11-07] MEDS: ALPRAZolam 0.5 mg Tablet PO PRN ×3 (08:27→20:37)
[2016-11-07] MEDS: Albuterol-Ipratropium 3 mL Inhalation Solution NEB SCH ×3 (10:19→21:12)
--- NOTE | 2016-11-07 10:30 | NUR ---
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
--- NOTE | 2016-11-07 14:23 | PCM.PNMED ---
Subjective Date of Service Nov 07, 2016 Subjective Patient had a rough night. She c/o abdominal pain, dyspepsia and nausea. She received zofran, xanax, oxycodone, morphine, tums and restoril after which she was able to calm down and fall asleep. Exam Vital Signs Vital Sign - Last Date Time Temp Pulse Resp B/P Pulse Ox O2 Delivery O2 Flow Rate FiO2 11/07/16 11:50 36.5 70 20 162/111 96 Room Air 11/07/16 10:20 2.00 Intake and Output 11/06/16 11/06/16 11/07/16 Cumulative From/Thru 15:00 23:00 07:00 11/05/16 12:27 - 11/07/16 06:52 Intake Total 947 ml 1965 ml 1362 ml 4274 ml Output Total 850 ml 850 ml 900 ml 2600 ml Balance 97 ml 1115 ml 462 ml 1674 ml Intake Oral 950 ml 513 ml 1463 ml IV Total 947 ml 1015 ml 849 ml 2811 ml Output Urine Total 850 ml 850 ml 600 ml 2300 ml Urine/Stool Mix 300 ml 300 ml # Bowel Movements 1 1 Exam General: Chronically appearing female laying in bed looking very tired HEENT: NC/AT, eyes, PERRLA, EOMI, neck, soft supple, no adenopathy, mild JVD, no masses, no thyromegaly, throat mucous membranes pink and moist Lungs: Diffuse rales, no use of accessory muscles of respiration Heart: Regular rate and rhythm, no murmur, S1-S2 present, no rub, no click, distant heart sounds Abdomen: Soft, nontender, nondistended, bowel sounds active, no rebound, no guarding Muscular skeletal: No edema Neurologic: Grossly neurologically intact Psychiatric: Appropriate mood and affect IVs and Medications Medications Reviewed: Medications were reviewed in detail Lab and Diagnostics Result Diagram: 11/07/16 0303 11/07/16 0303 X-Rays, CTs and MRIs X-RAY CHEST IMPRESSION: Increased pulmonary vascularity with coarsened bibasilar opacities. Findings are suggestive of edema. Underlying areas of airspace disease within the bases cannot be excluded. Dictated and approved by: Fannie Tabares M.D. on 11/05/2016 at 13:01 CT ANGIO CHEST IMPRESSION: 1. Heterogeneous filling defects predominantly within the right upper and middle bladder lobes within the tertiary branches of the pulmonary artery most consistent with pulmonary emboli. 2. Bilateral appearance of prominent groundglass like opacities within the lungs bilaterally. These can be seen with infection or inflammation. 3. Marked interval increase in size of previously identified sub-centimeters right upper lobe nodule, concerning for neoplastic disease. In addition, the lungs demonstrate interval development of bilateral pleural effusions as well as ill-defined areas of nodular coarsening. The latter could be related to areas of edema or poorly visualized areas of nodularity partially obscured by groundglass opacities and effusions. Recommend interval followup to document resolution. Dictated and approved by: Fannie Tabares M.D. on 11/05/2016 at 16:04 Cardiac Echo Impressions ECHO report pending Assessment & Plan Kayy No is a 71 year old female with a medical history including CHF, CAD , hypertension, asthma, atrial fibrillation, COPD, and recent C.Diff infection presented to [facility] Emergency Department via EMS due to dyspnea onset 2 days ago. Patient has been admitted for treatment and management of pulmonary emboli and severe hypokalemia.Hospital day 3. 1. Pulmonary emboli, present on admission. Active -CT angio chest revealed heterogeneous filling defects predominantly within the right upper and middle bladder lobes within the tertiary branches of the pulmonary artery most consistent with pulmonary emboli. -Likely provoked one by new diagnosis of lung mass -DC Heparin drip, start Lovenox 80 mg subq q12h with transitioning to Warfarin tonight 2. Hypokalemia, present on admission. Resolved -Most likely due to home Lasix w/o sufficient standard replacement of K, Beta- raina -Potassium of 2.7 this morning. Replaced with Potassium Chloride 40 meq IV -Current potassium 3.7 -Continue to monitor 3. Elevated troponin, present on admission. Presumed stable -Patient has intermittent chest pain no different than usual baseline. EKG shows sinus rhythm, no acute ST elevation -Less likely acute ischemia, possibly demand due to stress and PE -Echo report pending 4. CHF without exacerbation, present on admission. Improved -Chest x-ray findings suggestive of pulmonary edema -Increased Pro-BMP -Furosemide 40 mg IV push given in ED -ECHO in 09/14 revealed left ventricular ejection fraction of 50% and severe mitral regurgitation. Current ECHO report pending -Resume home Furosemide, 40 mg once a day 5. COPD with out exacerbation, present on admission. Improved -Continue home albuterol inhaler, Brovana, Budesonide. -Supplemental O2 as needed -No need for steroid for now -No evidence of infection,afebrile,no leukocytosis ,will avoid abx unless clear evidence of infection given history of recurrent c.dif 6. Right upper lobe lung mass, present on admission. Active -CT angio chest revealed marked interval increase in size of previously identified sub-centimeters right upper lobe nodule, concerning for neoplastic disease. In addition, the lungs demonstrate interval development of bilateral pleural effusions as well as ill-defined areas of nodular coarsening. The latter could be related to areas of edema or poorly visualized areas of nodularity partially obscured by groundglass opacities and effusions. -Spoke with IR,they recommend outpatient IR once more stable with lovenox bridging 7. Hypercalcemia, present on admission. Active -Most likely due to neoplasm -PTH and Vit D pending 8.Recent c.dif, presumed stable -Completed vanco po on October 18 -Continues to have on and off loose stool, will check c.dif , patient did not have bowel movement yet 9. Anemia, chronic, present on admission. Active -Stool occult blood requested, patient did not have bowel movement yet -Continue Ac, benefit outweighs risk 10.Hypothyroidism -Stable, continue Levothyroxine 200 mcg daily 11.GERD -Pantoprazole Admission status: Inpatient Disposition: Most likely home tomorrow on Warfarin and follow up for lung mass biopsy Pain Evaluation: Adequate Pain Control GI Prophylaxis: Proton Pump Inhibitor VTE Prophylaxis: Sub-Q Enoxaparin, Other (heparin drip) Resuscitation Status: Limited Interventions (compressions, cardioversion/ defibrillation, BiPAP, medications and IV fluid) Attending Statement The patient was seen and examined independently on 11/07/2016 and case discussed with Dr. Schilling . I agree with the history, exam and plan as outlined in the note above. Teresita Schilling DO Nov 07, 2016 14:22 Nikita Brewer MD Nov 08, 2016 06:22
[2016-11-07 14:26] LABS: APPEARANCE,URINE CLEAR (CLEAR,HAZY); COLOR,URINE STRAW (YELLOW); OCCULT BLOOD,URINE NEGATIVE (NEGATIVE); PH,URINE 8.5 (5.0-8.0); UROBILINOGEN,URINE NORMAL (NORMAL)
[2016-11-07 15:36] LABS: INR 0.94 ratio
--- NOTE | 2016-11-07 16:34 | DRSVH ---
[facility] [address] [place] [address] Echocardiogram Report Name: VENANCIO GOMEZ Date: 11/07/2016 Height: 62 in Hospital Exam Location: [facility] Weight: 184 lb Gender: Female BSA: 1.8 m2 : 1945 Age: 71 yrs BP: 173/116 mmHg Reason For Study: Pulmonary- Embolism Ordering Physician: HOSPITALIST [facility] Performed By: Luis Alfredo Alexander Referring Physician: ASHLEY GAINES Interpretation Summary There is mild concentric left ventricular hypertrophy. Left ventricular systolic function is borderline reduced. Left ventricular ejection fraction is estimated to be 50%. There has been no significant change since the previous study. There is hypokinesis of the basal inferior and inferolateral wall. The right ventricle is normal in size and function. The right ventricular systolic pressure is estimated at 42 mmHg assuming a right atrial pressure of 8 mm Hg. The left atrium is severely dilated. Right atrial size is normal. There is severe mitral regurgitation. There has been no significant change since the previous study. There is no other significant valvular heart disease. The ascending aorta is at the upper limits of normal in size. Procedure: A two-dimensional transthoracic echocardiogram with color flow and Doppler was performed. The study quality was technically adequate. Comparison is made with the echocardiogram of 09/18/16. The patient was in normal sinus rhythm during the exam. Left Ventricle: There is mild concentric left ventricular hypertrophy. The left ventricle is mildly dilated. Left ventricular systolic function is borderline reduced. Left ventricular ejection fraction is estimated to be 50%. There has been no significant change since the previous study. There is hypokinesis of the basal inferior and inferolateral wall. Diastolic function could not be accurately assessed due to confounding valvular disease. Right Ventricle: The right ventricle is normal in size and function. Atria: The left atrium is severely dilated. Right atrial size is normal. The interatrial septum is intact with no evidence for an atrial septal defect. Mitral Valve: The mitral valve leaflets are mildly calcified. The mitral valve mean gradient is 5 mmHg. There is severe mitral regurgitation. There has been no significant change since the previous study. Aortic Valve: The aortic valve is normal in structure and function. No aortic regurgitation is present. Tricuspid Valve: The tricuspid valve is normal. There is mild tricuspid regurgitation. The right ventricular systolic pressure is estimated at 42 mmHg assuming a right atrial pressure of 8 mm Hg. Pulmonic Valve: The pulmonic valve leaflets are thin and pliable; valve motion is normal. There is a trace or physiologic amount of pulmonic regurgitation. There is no other significant valvular heart disease. Great Vessels: The aortic root is normal size. The ascending aorta is at the upper limits of normal in size. The pulmonary artery is normal size. The IVC is dilated (diameter is greater than 2.1 cm) and it collapses less than 50% with a sniff. This suggests a high right atrial pressure of 15 mm Hg. Pericardium/ Pleura There is no pericardial effusion. There is no pleural effusion. MMode/2D Measurements & Calculations LVIDd: 5.2 cm RA long axis LVOT diam: 2.1 cm LVIDs: 3.8 cm LA A2 area: 23.5 cm Ao root diam FS: 25.9 % LA A4 area: 28.6 cm RA area IVSd: 1.0 cm LA length (vol) asc Aorta Diam LVPWd: 1.2 cm : 15.2 cm LA vol: 100.1 ml RA vol Ao Arch Diam (Prox LA vol index : 39.3 ml Trans): 2.0 cm RA : 21.3 mm2 IVC diam: 2.6 cm LV martines. diameter/BSA LV sys. diameter/BSA (cm/m^2): 2.8 (cm/m^2): 2.1 Doppler Measurements & Calculations Ao V2 max MV E max artemio MV E/A: 1.7 TR max artemio : 151.3 cm/sec : 157.3 cm/sec Med Peak E' Artemio : 290.8 cm/sec Ao max PG MV A max artemio TR max PG : 9.2 mmHg : 93.9 cm/sec E/E' med: 23.0 : 33.8 mmHg Ao mean PG Lat Peak E' Artemio PA V2 max MVA(VTI): 1.0 cm : 81.2 cm/sec LVOT Max Artemio MR ERO: 0.56 cm2 E/E' lat: 23.7 PA mean PG : 77.2 cm/sec E/e' average : 1.3 mmHg CJ(I,D): 1.6 cm sev ratio MV V2 mean Ao V2 mean LV V1 max PG MR flow rate : 100.2 cm/sec : 103.7 cm/sec : 316.7 cm3/sec MV mean PG Ao V2 VTI: 30.6 cm LV V1 VTI MR PISA radius CJ(V,D): 1.7 cm2 : 14.7 cm MV V2 VTI MV dec time : 0.29 sec PA V2 mean CJ indexed to BSA : 54.7 cm/sec (cm^2/m^2): 0.86 PA pr(Accel) : 41.6 mmHg Reading Physician:RY
--- NOTE | 2016-11-07 16:59 | NUR ---
Anxiety Pt. has been having anxiety throughout shift stating she feels like she wants to "blow up from the inside". Pt. has states "I thinks that everything that is being done up to this point for my health care is no longer worth it and I am think if I should continue forward. My life may be prolonged but eventually I will ." Pt. stated she would like to have a conversation with the doctor tomorrow morning about her future. Xanx has been given twice on shift for anxiety per Pt. request as well as a PRN roxicodone for pain this afternoon.
--- NOTE | 2016-11-07 20:39 | NUR ---
Pt Education Pt instructed on administration of Lovenox. Pt stated understanding and performed a return demonstration with self administration in right lower abdomen. Pt states that she is very weary of all of her "new diagnoses" and medications. Pt states that she feels she will not be able to continue to self administer at home. Pt educated on risks of discontinuing. Pt states understanding.
[2016-11-07] MEDS ORDERED: Albuterol HFA 60 Puff 8 Gm Inhaler INHALATION PRN (22:45)
[2016-11-07] MEDS ORDERED: Albuterol-Ipratropium 3 mL Inhalation Solution NEB PRN (22:45)
[2016-11-08] VITALS (10 sets, daily range): BP systolic 148–180; BP diastolic 87–111; PULSE 66–88; RESP 16–20; O2SAT 93–98
[2016-11-08] MEDS: Albuterol-Ipratropium 3 mL Inhalation Solution NEB SCH ×4 (02:30→20:54)
[2016-11-08 03:32] LABS: Mean Corpuscular Hemoglobin 29.8 pg (27.0-35.0); Mean Corpuscular Volume 94.3 fL (81-100)
[2016-11-08 03:53] LABS: INR 0.97 ratio
[2016-11-08] MEDS: Ondansetron 2 mg/mL 2 mL Inj IVPUSH PRN ×3 (04:20→12:22)
[2016-11-08] MEDS: ALPRAZolam 0.5 mg Tablet PO PRN ×2 (07:51→15:39)
[2016-11-08] MEDS: Pantoprazole 40 mg ER24 Tablet PO SCH (08:45)
[2016-11-08 08:52] LABS: TROPONIN T 0.011 ug/L (0.0-0.011)
[2016-11-08 09:03] LABS: Unsaturated Iron Binding 315.4 ug/dL
--- NOTE | 2016-11-08 10:24 | PCM.PHAPRO ---
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 Valerio Molina S Pharm D Nov 08, 2016 10:24
--- NOTE | 2016-11-08 10:43 | NUR ---
Palliative Care Palliative Care received verbal order from Dr Angelica Schilling 11/08/16 to assist with goals of care. Patient is a 71 year old woman with CHF, CAD, hypertension, asthma, atrial fibrillation, COPD, and recent C.Diff infection. She was admitted 11/05/16 for care of pulmonary emboli, severe hypokalemia and was found to have a new lung mass. Oncology has not seen yet. Patient lives at home with . Kevin No () [phone], Janeen (daughter) [phone] Palliative Care to follow. Georgette Rojas
[2016-11-08] MEDS: Vancomycin 125 mg Oral Capsule PO SCH ×2 (14:27→20:44)
--- NOTE | 2016-11-08 14:51 | DRSVH ---
PROCEDURE: X-RAY CHEST ONE VIEW, PORTABLE ([id number]) INDICATIONS: chest pain TECHNIQUE: One view of the chest was acquired. COMPARISON: [facility], CR, XR CHEST 1VW (PORTABLE), 11/05/2016, 12:43. FINDINGS: Surgical changes and devices: None. Lungs and pleura: There is an overall appearance of increased pulmonary vascularity. Slight appearanc e of coarsened interstitial bibasilar opacities are noted and unchanged. Mediastinum: Mediastinal contours appear normal. Heart size is increased. Bones and chest wall: No suspicious bony lesions. Overlying soft tissues appear unremarkable. IMPRESSION: Mild edema and cardiomegaly similar to prior examination. Dictated by: Brandon Jimenez RRA Interpreted: April Serrano MD on 11/08/2016 at 14:50 Transcribed by: CANDACE on 11/08/2016 at 14:51 Approved by: April Serrano MD, PhD on 11/08/2016 at 16:48
--- NOTE | 2016-11-08 15:48 | NUR ---
DARNELL Signed @ 1107 AM
--- NOTE | 2016-11-08 16:37 | NUR ---
Social Work: Continued Discharge Planning D: Pt discussed in am rounds. Pt is not medically stable for discharge at this time and is CDIF positive. ID consult is pending. Pt continues to be bridged to warfarin for PE. Pt requesting palliative care consult as she has a new lung mass. No workup has been done yet and pt will need to follow up with this as an outpatient. Pt continues to be I/SBA during admission and previously declined HH and supportive d/c services. Pt has 4L o2 at baseline. A: Pt who is I at baseline and lives with her spouse. 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 LUH Gonzalez
--- NOTE | 2016-11-08 17:36 | PCM.PNMED ---
Subjective Date of Service Nov 08, 2016 Subjective Patient c/o chest pain this morning. EKG, troponin, chest x-ray ordered. Lorazepam administered for anxiety. Patient felt much better and fell asleep. Upon awakening, patient stated that she would like to reassess goals of care. Palliative care consult offered. Exam Vital Signs Vital Sign - Last Date Time Temp Pulse Resp B/P Pulse Ox O2 Delivery O2 Flow Rate FiO2 11/08/16 16:48 75 18 158/111 94 Nasal Cannula 2.00 11/08/16 12:24 36.7 Intake and Output 11/07/16 11/07/16 11/08/16 Cumulative From/Thru 15:00 23:00 07:00 11/05/16 12:27 - 11/08/16 06:18 Intake Total 733 ml 300 ml 5307 ml Output Total 1100 ml 1050 ml 4750 ml Balance -367 ml -750 ml 557 ml Intake Oral 700 ml 300 ml 2463 ml IV Total 33 ml 2844 ml Output Urine Total 1100 ml 1050 ml 4450 ml Urine/Stool Mix 300 ml # Bowel Movements 5 1 7 Exam General: Chronically appearing female sitting at the edge of the bed mildly anxious HEENT: NC/AT, eyes, PERRLA, EOMI, neck, soft supple, no adenopathy, mild JVD, no masses, no thyromegaly, throat mucous membranes pink and moist Lungs: Diffuse rales, no use of accessory muscles of respiration Heart: Regular rate and rhythm, no murmur, S1-S2 present, no rub, no click, distant heart sounds Abdomen: Soft, nontender, nondistended, bowel sounds active, no rebound, no guarding Muscular skeletal: No edema Neurologic: Grossly neurologically intact Psychiatric: Appropriate mood and affect Lab and Diagnostics Result Diagram: 11/08/1631211/08/16 0313 X-Rays, CTs and MRIs X-RAY CHEST IMPRESSION: Increased pulmonary vascularity with coarsened bibasilar opacities. Findings are suggestive of edema. Underlying areas of airspace disease within the bases cannot be excluded. Dictated and approved by: Fannie Tabares M.D. on 11/05/2016 at 13:01 CT ANGIO CHEST IMPRESSION: 1. Heterogeneous filling defects predominantly within the right upper and middle bladder lobes within the tertiary branches of the pulmonary artery most consistent with pulmonary emboli. 2. Bilateral appearance of prominent groundglass like opacities within the lungs bilaterally. These can be seen with infection or inflammation. 3. Marked interval increase in size of previously identified sub-centimeters right upper lobe nodule, concerning for neoplastic disease. In addition, the lungs demonstrate interval development of bilateral pleural effusions as well as ill-defined areas of nodular coarsening. The latter could be related to areas of edema or poorly visualized areas of nodularity partially obscured by groundglass opacities and effusions. Recommend interval followup to document resolution. Dictated and approved by: Fannie Tabares M.D. on 11/05/2016 at 16:04 Cardiac Echo Impressions Echocardiogram Report Interpretation Summary There is mild concentric left ventricular hypertrophy. Left ventricular systolic function is borderline reduced. Left ventricular ejection fraction is estimated to be 50%. There has been no significant change since the previous study. There is hypokinesis of the basal inferior and inferolateral wall. The right ventricle is normal in size and function. The right ventricular systolic pressure is estimated at 42 mmHg assuming a right atrial pressure of 8 mm Hg. The left atrium is severely dilated. Right atrial size is normal. There is severe mitral regurgitation. There has been no significant change since the previous study. There is no other significant valvular heart disease. The ascending aorta is at the upper limits of normal in size. Reading Physician:PM Assessment & Plan Kayy No is a 71 year old female with a medical history including CHF, CAD , hypertension, asthma, atrial fibrillation, COPD, and recent C.Diff infection presented to [facility] Emergency Department via EMS due to dyspnea onset 2 days ago. Patient has been admitted for treatment and management of pulmonary emboli and severe hypokalemia.Hospital day 4. 1. Pulmonary emboli, present on admission. Active -CT angio chest revealed heterogeneous filling defects predominantly within the right upper and middle bladder lobes within the tertiary branches of the pulmonary artery most consistent with pulmonary emboli. -Likely provoked one by new diagnosis of lung mass -DCd Heparin drip, start Lovenox 80 mg subq q12h with transitioning to Warfarin , 5 mg administered last night. INR 0.97 thi am. Continue Warfarin 5 mg. 2. C.dif, present on admission. Active -Completed vanco po on October 18 -Vanco 125 mg q6h 3. Normocytic anemia, chronic, present on admission -Most likely d/t chronic disease -Iron panel pending -Ferrous sulfate 325 mg bid by mouth daily 4. Hypokalemia, present on admission. Resolved -Most likely due to home Lasix w/o sufficient standard replacement of K, Beta- raina -Potassium of 2.7 this morning. Replaced with Potassium Chloride 40 meq IV -Current potassium 3.7 -Continue to monitor 5. Elevated troponin, present on admission. Presumed stable -Patient has intermittent chest pain no different than usual baseline. EKG shows sinus rhythm, no acute ST elevation -Less likely acute ischemia, possibly demand due to stress and PE -Echo revealed left ventricular ejection fraction 50% and severe mitral regurgitation. 6. CHF without exacerbation, present on admission. Improved -Chest x-ray findings suggestive of pulmonary edema -Increased Pro-BMP -Furosemide 40 mg IV push given in ED -Echo revealed left ventricular ejection fraction 50% and severe mitral regurgitation. -Resume home Furosemide, 40 mg once a day 7. COPD with out exacerbation, present on admission. Improved -Continue home albuterol inhaler, Brovana, Budesonide. -Supplemental O2 as needed -No need for steroid for now -No evidence of infection,afebrile,no leukocytosis ,will avoid abx unless clear evidence of infection given history of recurrent c.dif 8. Right upper lobe lung mass, present on admission. Active -CT angio chest revealed marked interval increase in size of previously identified sub-centimeters right upper lobe nodule, concerning for neoplastic disease. In addition, the lungs demonstrate interval development of bilateral pleural effusions as well as ill-defined areas of nodular coarsening. The latter could be related to areas of edema or poorly visualized areas of nodularity partially obscured by groundglass opacities and effusions. -Spoke with IR,they recommend outpatient IR once more stable with lovenox bridging -Palliative care consult. 9. Hypercalcemia, present on admission. Active -Most likely due to neoplasm -PTH and Vit D normal 10. Anemia, chronic, present on admission. Active -Stool occult blood requested, patient did not have bowel movement yet -Continue Ac, benefit outweighs risk 11.Hypothyroidism -Stable, continue Levothyroxine 200 mcg daily 12.GERD -Pantoprazole Admission status: Inpatient Disposition: Most likely home tomorrow on Warfarin with bridging Lovenox and follow up for lung mass biopsy. GI Prophylaxis: Proton Pump Inhibitor VTE Prophylaxis: Sub-Q Enoxaparin, Other (heparin drip) Resuscitation Status: Limited Interventions (compressions, cardioversion/ defibrillation, BiPAP, medications and IV fluid) Attending Statement The patient was seen and examined together with Dr. Schilling on 11/08/16 and I agree with the history, exam and plan as outlined in the note above. Teresita Schilling DO Nov 08, 2016 17:36 Nikita Brewer MD Nov 08, 2016 18:48
--- NOTE | 2016-11-08 18:06 | NUR ---
SOB/Mentation/Anxiety Pt. this morning at the beginning of shift was c/o chest pressure heaviness and tightness. MD was notified and EKG was ordered. PRN morphine and zofran was given to help with Pts. symptoms as well as nausea that developed. Pt. states before lunch "I am done with care I am tired of all this. I want to go home and live my life as it is." Pt. appears to be exhausted from hospital stays and sickness. Xanax was given to Pt x2 this shift per Pt. req. because she states she can feel the anxiety building up.
--- NOTE | 2016-11-08 18:33 | PCM.CONPAL ---
Date of Service Nov 08, 2016 Date of Hospital Admission: Nov 05, 2016 at 17:07 Date of Palliative Consult: Nov 08, 2016 Requesting Provider: Davin Galan MD Reason Palliative Care Consult: Other Symptoms, Goals of Care Discussion Hospital Unit @time of consult: Progressive Care Palliative Care Recommendation Summary of palliative recommendations: -Symptom management (Pain/other) Dyspnea complex with component from her PE and top of her baseline COPD. Pulmonary emboli-reviewed as well as need for anticoagulation and need for consistency of dosing diet etc. Chronic pain syndrome-reviewed difficulty of treatment in light of her ongoing overuse of alcohol. She might find some benefit from Toradol-which might be her see for option. Treatment of her depression may help her pain Chronic depression and anxiety-my suspicion is this has been broached in the past. Strongly encouraged that she stay on the sertraline 100 mg daily. She has poor sleep and could consider addition of mirtazapine at bedtime. She is not interested in counseling Lung nodule-increased size in a long-term smoker certainly of concern for malignancy. Patient is adamant that she does not want this pursued and feels that her quality of life going forward will be better for that Diarrhea etiology unclear. Will defer to GI but wonder if trial of oral budesonide would be appropriate if C. difficile has cleared. Concern with her anemia in the right suspect she has been having GI bleeding. 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 She defines that her daughter-Larson (Tif)-is her first for DPOAHC, Kevin 2nd and daughter Janeen third. She states she has not reviewed any of this with Marsha but believes she would understand because they are similar in character. POLST completed-DNR/DNI no feeding tube but okay limited interventions to include medications IV fluids and possibly short-term trial of BiPAP. She states she is not far away from just not coming to the hospital. -Family/emotional support-I suspect the patient is fairly isolated, some support from her Reviewed with the patient consideration for some consistent work on her symptoms over time. Starting with taking her antidepressant. Offered follow-up with palliative on a when necessary basis outpatient. Patient Goals: 1. Patient wants to be told the truth about his/her illness, even if it is unpleasant. 2. Patient would like to be told prognosis when it can be predicted, to better guide treatment decisions. 3. Patient would choose quality of life over quantity of life, and defines quality as [ ]. 4. Patient would request that comfort care take priority over cognitive/mental confusion. Additional Medical Diagnoses with primary management by Hospitalist team include : Anemia Chronic nausea and GI bleed- may have significant component from her alcohol chronic alcohol overuse A. fib PEs Anticoagulation Problems: End of Life Preferences She requests DO NOT INTUBATE DO NOT RESUSCITATE/limited in this is consistent with our discussion Goals of Care She would like to go home be discharged JOHN. She acknowledges part of this is to use alcohol to calm her. Resuscitation Status Resuscitation Status: Limited Interventions (compressions, cardioversion/ defibrillation, BiPAP, medications and IV fluid) Pt History History of Present Illness Kayy No is a 71 year old female with a medical history including CHF, CAD , hypertension, asthma, atrial fibrillation, COPD, and recent C.Diff infection presented to [facility] Emergency Department via EMS due to dyspnea onset 2 days ago. She typically only uses oxygen 4L during the night but for the past 2 days she has had to wear 4L throughout the entire day. She reports her shortness of breath gives her great deal of anxiety and left sided chest pain at times. Patient reports associated chills, productive cough with clear phlegm,chronic diarrhea, patient just finished a course of Vanco for C-diff on . She denies fever. She was last hospitalized for sepsis on 09/12/16. PALLIATIVE CARE CONSULTATION Requesting provider-Teresita Schilling DO Reason: [facility] PCP Dr. Davin Galan 71-year-old female patient with known history of CHF and CAD hypertension moderately severe COPD history of atrial fibrillation with recent hospitalization in August for sepsis then complications with C. difficile treated with vancomycin. She has chronic nausea intermittent vomiting and chronic diarrhea for years. She has had extensive evaluations including at [facility] with upper endoscopies and at least one or 2 colonoscopies with nonspecific inflammation noted. She was treated with sulfasalazine caused nausea and she was prescribed Asacol but due to cost she never took it. She has chronic diarrhea now complicated with her C. difficile. She states her diarrhea predated her cholecystectomy by a number of years and she noticed no worsening post. She is chronic urinary urgency and frequency. 30 years ago she was told that she had some degree of urinary retention so medication such as oxybutynin were never prescribed. Recently she has had episodes of incontinence of both urine and stool and she relies on depends. Interestingly she had a Brandt catheter placed on admission and she has not had a bowel movement since. She states she has not noticed blood in her stool and is surprised that her anemia. She is was admitted for acute shortness of breath that started evening of admission worse than her baseline dyspnea and she was diagnosed with pulmonary emboli in the emergency room. She is now admitted for anticoagulation. She is has moderate to severe COPD last spirometry October 2015. She has history of focal hypokinesis and basal inferior with an EF of 50% and mild LVH and severe MR on echo done this admission She has a diagnosis of TATE found no help with CPAP/BiPAP- in the machine sits at home. She was using home O2 only nocturnal because of her TATE She has chronic smoker 1 pack a day starting at age 18 discontinuing approximately 2 months ago when she got too short of breath and too sick to smoke. She acknowledges significant alcohol ingestion also since her teens only vodka - and by her description at least 6 shots per day. She states she has stopped including recently during hospitalizations and has never had symptoms of withdrawal. She also has little interest in discontinuing this. She states she was told her liver function tests were good so she sees little point She has chronic depression and anxiety and acknowledges that her alcohol is used to treat this. She was recently begun on sertraline stating she has not taken this medication in the past. She has fluoxetine listed as an allergy as well as bupropion- intolerant. She has chronic fatigue, generalized weakness, complaints of chronic diffuse pain. She takes her medications intermittently- such as furosemide because of the urinary frequency. She has been inconsistent on her levothyroxin because she has felt so poorly. She has a pulmonary nodule which has increased in size over the past year or 2 it has doubled from 0.7-1.[address] She has chronic edema and orthostatic lightheadedness. Past Medical History Significant PMH Noted: Normal EF CHF Severe MR COPD Recent ex smoker Recent PE Pulmonary nodule increase in size History of alcohol abuse Recent C. difficile Anemia-also recent History of chronic A. 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 Social Support: Kevin her Living Situation: lives with Spiritual Support Spiritual Support Not reviewed Responsive Patient Symptoms Pain (current): Mild Tiredness/Fatigue: Moderate Nausea: Mild Depression: Moderate Anxiety: Moderate Shortness of Breath: Moderate Other Chronic diarrhea urinary frequency Palliative Performance Scale PPS Patient Status: Baseline PPS Ambulation: Full PPS Activity: Normal activity with effort PPS Self-Care: Full Self Care PPS Intake: Normal PPS Conscious Level: Full Performance Scale: 100% Allergy Allergies Reviewed: Yes Medications Current Medications: Current Medications Calcium Carbonate 500 mg PRN PRN PO Last administered on 11/07/16 07:51; Admin Dose 500 MG; Start 11/07/16 at 03:20; Stop 11/08/16 at 05:29; Status DC Enoxaparin Sodium 80 mg Q12H SUBQ Last administered on 11/08/16 08:47; Admin Dose 80 MG; Start 11/07/16 at 08:00 Alprazolam 0.5 mg TID PRN PO Last administered on 11/08/16 15:39; Admin Dose 0.5 MG; Start 11/07/16 at 13:17; Stop 11/08/16 at 18:17; Status DC Pharmacy Consult 1 ea DAILY@17 XX; Start 11/07/16 at 17:00 Lisinopril 30 mg DAILY PO Last administered on 11/07/16 15:34; Admin Dose 30 MG ; Start 11/07/16 at 14:00; Stop 11/08/16 at 08:05; Status DC Morphine Sulfate 1-2 MG Q4H PRN IVPUSH Last administered on 11/08/16 08:07; Admin Dose 2 MG; Start 11/07/16 at 22:05 Albuterol 2 puff Q4H PRN INHALATION; Start 11/07/16 at 22:45; Stop 11/07/16 at 22:48; Status DC Albuterol/ Ipratropium 3 ml Q6H PRN NEB; Start 11/07/16 at 22:45; Stop at 22:48; Status DC Lisinopril 40 mg BID PO Last administered on 11/08/16 10:26; Admin Dose 40 MG; Start 11/08/16 at 08:30; Stop 11/08/16 at 15:25; Status DC Warfarin Sodium 5 mg DAILY@17 PO Last administered on 11/08/16 17:34; Admin Dose 5 MG; Start 11/08/16 at 17:00 Vancomycin HCl 125 mg Q6 PO Last administered on 11/08/16 14:27; Admin Dose 125 MG; Start 11/08/16 at 14:30 Ferrous Sulfate 325 mg BID PO Last administered on 11/08/16 14:27; Admin Dose 325 MG; Start 11/08/16 at 13:45 Lisinopril 40 mg BID PO; Start 11/08/16 at 20:30 Calcium Carbonate 500 mg PRN PRN PO; Start 11/08/16 at 18:10; Stop 11/08/16 at 18:15; Status DC Alprazolam 0.5 mg Q6 PRN PO; Start 11/08/16 at 20:30; Status UNV Colestipol HCl 1 gm DAILY PO; Start 11/09/16 at 08:30; Status UNV Scheduled Arformoterol Tartrate (Brovana) 15 Mcg/2 Ml Vial.neb 15 MCG IH DAILY Aspirin Chew (Aspirin Chew) 81 Mg Chew 81 MG PO DAILY Budesonide (Budesonide) 1 Mg/2 Ml Ampul.neb 1 MG IH DAILY Carvedilol (Carvedilol) 6.25 Mg Tablet 6.25 MG PO BIDWM Levothyroxine (Levothyroxine) 200 Mcg Tablet 200 MCG PO QAM Lisinopril (Lisinopril) 40 Mg Tablet 40 MG PO BID Magnesium (Magnesium) 200 Mg Tablet 200 MG PO BIDWM Omeprazole (Omeprazole) 40 Mg Capsule.dr 40 MG PO QAM Potassium Chloride (Potassium Chloride) 10 Meq Capsule.er 10 MEQ PO BIDWM TAKE WITH FOOD Vit#96/Ferrous Fum/FA ( Tablet) 1 Each Tablet 1 TABLET PO DAILY Ranitidine (Ranitidine) 300 Mg Tablet 300 MG PO HS Sertraline HCl (Sertraline) 20 Mg/1 Ml Oral.conc 100 MG PO QAM Spironolactone (Aldactone) 25 Mg Tablet 25 MG PO DAILY Trazodone (Trazodone) 100 Mg Tablet 100 MG PO HS Triamcinolone Acetonide (Nasacort) 10.8 Ml [place] 2 SPRAYS NS DAILY Scheduled PRN Acetaminophen (Acetaminophen) 325 Mg Tablet 650 MG PO Q4H PRN PRN For Fever Albuterol Sulfate (Ventolin HFA Inhaler) 200 Puff/18 Gm Inhaler 2 PUFF INH Q4H PRN PRN For Wheezing Alprazolam (Alprazolam) 0.5 Mg Tablet 0.5 MG PO BID PRN PRN For Anxiety Furosemide (Furosemide) 40 Mg Tablet 40-80 MG PO QAM PRN PRN EDEMA Ondansetron ODT (Ondansetron ODT) 4 Mg Tab.rapdis 4 MG PO Q8H PRN PRN For Nausea /Vomiting Oxycodone (Roxicodone) 5 Mg Tablet 5 MG PO Q6H PRN PRN For Pain Objective Findings Exam Vital Sign - Last Date Time Temp Pulse Resp B/P Pulse Ox O2 Delivery O2 Flow Rate FiO2 11/08/16 17:59 Supplement Oxygen 11/08/16 16:48 75 18 158/111 94 2.00 11/08/16 12:24 36.7 Intake and Output 11/07/16 11/07/16 11/08/16 Cumulative From/Thru 15:00 23:00 07:00 11/05/16 12:27 - 11/08/16 06:18 Intake Total 733 ml 300 ml 5307 ml Output Total 1100 ml 1050 ml 4750 ml Balance -367 ml -750 ml 557 ml Intake Oral 700 ml 300 ml 2463 ml IV Total 33 ml 2844 ml Output Urine Total 1100 ml 1050 ml 4450 ml Urine/Stool Mix 300 ml # Bowel Movements 5 1 7 General: Alert/Oriented x3, Anxious, Other (initially a bit agitated- but after a nap was in a good mood) HEENT: PERRLA, EOMI, Scleral Anicteric Heart: Dysrhythmia Present Lungs: Other (fairly clear on exam. Patient is on O2 able to speak in full sentences without dyspnea) Abdomen: Tenderness to Palpation (mildly tender- unclear if ascites), Distended Neuro: Cranial Nerve 3-12 Intact, Other (appropriate, decisional) Extremities: Edema (1+) Lab/Diagnostics Lab and Imaging results reviewed in detail in EMR. Labs and CT reviewed. Hemoglobin and hematocrit 7.9 and 25 creatinine 1.[address] noting increase in pulmonary nodule as well as evidence of PE Patient/Family Conference Members Present Family Members Present Patient, initially her Kevin presents, she was much calmer and in a better mood after he left Medical Team Members Present? Emily Michaud M.D. PC Discussion/Goals of Care Discussion FAMILY UNDERSTANDING OF DISEASE: Patient is aware of her multiple disease processes. She acknowledges that her frustration with chronicity of disease and with difficulty of multiple providers evaluations over the years has compromised some of her care and evaluation. She acknowledges her intermittent noncompliance with medications-i.e. Asacol may be effective but she never tried it. She acknowledges the difficulty of her depression and anxiety. She has poor insight into her alcohol overuse and it impact on depression and anxiety and coping. She initially is agitating to leave today but is able to understand need to develop anticoagulation. She is quite adamant that she wants to have less engagement with medical community and intervention. She has absolutely no interest in pursuing evaluation of her pulmonary nodule and or treatment if it were malignant DISEASE PROGRESSION/EVIDENCE OF DECLINE: SYMPTOM BURDEN: GOALS: She would like better control of her symptoms including chronic pain chronic anxiety depression and diarrhea HOPES/WORRIES: Palliative Care counselled: Reviewed issues of goals of care/paperwork/ communication with family. Time spent Total time 50 minutes; >50% face to face with patient and/or family, providing counselling regarding plans and recommendations, and in care coordination with his/her medical teams. I also spent an additional 25 minutes counseling for advanced care planning with the patient/the patients family/the surrogate decision maker. copies to: Davin Galan MD, Deborah A MD Nov 08, 2016 18:32
[2016-11-08] MEDS: ALPRAZolam 0.25 mg Tablet PO PRN (19:37)
[2016-11-08] MEDS: Lisinopril 40 Tablet PO SCH (20:44)
--- NOTE | 2016-11-08 21:52 | CONS ---
[address] [address] CONSULTATION REPORT PATIENT: VENANCIO GOMEZ : 1945 MR#: [id number] ADMIT: 11/05/2016 JOB ID: [id number] DATE OF SERVICE: 11/08/[address] Brewer for this timely consultation. REASON FOR CONSULT: Apparent recurrent C. difficile associated diarrhea. HISTORY OF PRESENT ILLNESS: This is a 71-year-old woman who is well known to me from prior admissions this year. The patient was admitted to this hospital back in July with alcoholic hepatitis, alcohol withdrawal and C. difficile colitis. She was eventually transferred to a alf facility and eventually was able to leave the alf facility and go home. Unfortunately, there, she continued to have multiple loose stools a day with nausea. She was then admitted back to this hospital with what appeared to be pneumonia in August. At that time, she still had a positive stool PCR in association with the loose stools. When I saw the patient in consult in August, I was not entirely convinced that she was having a true recurrence of the C. diff and was more thinking that she perhaps had other colon pathology or perhaps the C. diff of July had precipitated an irritable bowel syndrome type picture. Nonetheless, we were stuck by the positive stool PCR and continued diarrhea and again reinitiated a course of oral vancomycin. The patient then left the hospital after her August admission and was to complete a vancomycin taper. The patient had difficulty obtaining the drugs but after a series of phone calls I participated in, we did get a supply of liquid vancomycin which she reports she took. The patient is now readmitted for the third time in 2016 with shortness of breath which has been proven to be secondary to pulmonary embolism. In addition, there is a worrisome nodular process in the lung which could represent a neoplasm in this lady with long history of smoking, COPD and other attendant issues. As part of her admission, it was noted that the patient continues to have three or four loose bowel movements a day. She reports this is sometimes associated with subjective fevers, chills, nausea, and occasional blood in the stool. She states that her diarrheal symptoms have really not changed a whole lot since the initial more severe bout back in July resolved and left her with this chronic diarrhea. It is worth noting that in my August consult, I said that unless her stool frequency greatly changed, I would not check another C. diff as the problem with the C. difficile PCR study is that it is so sensitive that it will often continue to be positive for many months despite resolution of the infection. PAST MEDICAL HISTORY: 1. Alcoholism with alcoholic hepatitis in July 2016. 2. Organic heart disease; a. Atrial fibrillation. b. Congestive heart failure. c. Severe mitral regurgitation. 3. Hypertension. 4. COPD with ongoing cigarette smoking. 5. Hypothyroidism. 6. Chronic insomnia. 7. Hyperlipidemia. 8. C. difficile colitis July 2016 with chronic diarrhea thereafter. SOCIAL HISTORY: The patient is an ongoing cigarette smoker and alcohol consumer. 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 She states unequivocally she will not be returning to the snf. FAMILY HISTORY: Negative for TB in all first-degree relatives. Her mother of aortic valvular issues and her father of emphysema. REVIEW OF SYSTEMS: The patient reports a largely positive review of systems today. She states that she has headaches but no visual changes. She does state that she has sore throat which is persistent, but no oral ulcerations of note. She notes that she has ongoing shortness of breath which, of course, is part and parcel of this pulmonary embolism superimposed on COPD and congestive heart failure. She did not today have chest pain, but she has in the days leading up to this admission. She does note she has nausea without vomiting. She has the ongoing diarrhea we described. She has chronic left lower quadrant pain which has been present for years and occasional blood in the stool. No dysuria, urgency, or frequency. No new muscle or joint pains reported. Remainder of the review of systems is negative. PHYSICAL EXAMINATION: Reveals an afebrile woman. Temp 36.5, pulse 75, respiratory rate 18, blood pressure 159/98. She is saturating 95% but requiring 3 L. She seems a bit lethargic, sleepy and has a flat affect. Her head is without trauma. Sinuses nontender. Nose normal. Oral cavity: No thrush or pharyngitis. Neck without apparent adenopathy or JVD. Lungs: With wheezes bilaterally. Cardiac tones: Regular rate and rhythm today. No appreciable murmurs though the quality of the stethoscope in the isolation room is poor, and she has been noted to have MR type murmur in the past. Abdomen is soft and essentially nontender except some mild tenderness with deep palpation, left lower quadrant. Bowel tones are normal. She does have a Brandt catheter. External genitalia normal. She does not have a fecal management system tube in place. Extremities without cellulitis or obvious synovitis. No significant peripheral edema. She moves all extremities and is grossly intact neurologically. She is certainly intact and oriented from a mental status point of view though, as noted, quite lethargic. LABORATORIES: Include white count consistently normal through this admission right around 4000 every day. No left shift at all. Creatinine 1. LFTs normal. Alk phos 2, LDH 202. Urinalysis without pyuria. Prior hep C done in July was negative. Micro studies just include the stool for C. diff which is positive. Stool for occult blood was also done and was actually negative. IMAGING: Includes a CT angiogram which shows the pulmonary emboli as previously discussed. There are also some ground-glass infiltrates and a right upper lobe nodule which is increasing in size and worrisome for malignancy that will need followup. IMPRESSION: This patient illustrates one of the problems we have with our Clostridium difficile diagnostics. When we switched from toxin-based assays a few years ago to PCR-based assays, we increased sensitivity tremendously but are left with the problem of lingering positive results. People who have normally recovered and are doing well after C. diff often have a stool PCR which can remain positive for months. This can be a major problem when people have another cause of ongoing low-level diarrhea following resolution of C. diff which may be the case in this patient. It is also a problem in that C. diff can precipitate an irritable bowel syndrome much like shigella and salmonella can, and these patients may have persistently positive C. diff PCR studies which will confuse us regarding the true etiology of their ongoing diarrhea. That said, in the absence of an available gastrointestinal toxin assay to try and determine if there is large or small quantities of toxin being excreted in the stool, we are forced to conclude that this patient may indeed have ongoing C. diff though I am inclined to doubt it. Given that we cannot absolutely prove she does not have C. diff., I think it is reasonable to once again initiate a course of vancomycin with a long taper. I had considered fidaxomicin,but the patient has trouble paying for prescriptions and it would be very expensive and I had considered the new monoclonal antibody Zinplava, but this can reduce cardiac left ventricular ejection fraction in 13% of patients which could be bad for this particular patient. RECOMMENDATIONS: 1. Vancomycin 125 p.o. q.i.d. for two weeks, then Vanco 125 p.o. b.i.d. for two weeks, then vancomycin 125 p.o. once a day for two weeks, then Vanco 125 every other day for two weeks. 2. If the patient still is having frequent stools after all of this is done, she might reasonably be referred to one of the [facility] centers which perform stool transplant. Thank you very much for involving us once again in this fascinating case.
[2016-11-09] VITALS (11 sets, daily range): BP systolic 147–169; BP diastolic 85–107; PULSE 66–82; RESP 16–20; O2SAT 93–99
[2016-11-09] MEDS: ALPRAZolam 0.25 mg Tablet PO PRN ×4 (02:37→23:36)
[2016-11-09] MEDS: Vancomycin 125 mg Oral Capsule PO SCH ×4 (02:39→19:53)
[2016-11-09 03:43] LABS: BASOPHILS % (AUTO) 0.3 % (0-3); EOSINOPHILS % (AUTO) 4.4 % (0-5); MONOCYTES % (AUTO) 17.8 % (4-12); Mean Corpuscular Hemoglobin 30.1 pg (27.0-35.0); Mean Corpuscular Volume 94.4 fL (81-100); NEUTROPHILS % (AUTO) 52.9 % (40-74); Platelet Count 203 bil/L (150-400)
--- NOTE | 2016-11-09 05:54 | NUR ---
Pain/Anxiety/Resp pt c/o intermittent abdominal pain at 5-6/10 and anxiety. Medicated with Xanax as well as Tylenol and Oxycodone, effective, pt able to sleep on and off. Pt on 2L O2 per NC, sats in mid to high 90's but even though pt reports occ. SOB.
[2016-11-09] MEDS: Albuterol-Ipratropium 3 mL Inhalation Solution NEB SCH ×2 (07:10→08:30)
[2016-11-09] MEDS: Pantoprazole 40 mg ER24 Tablet PO SCH (07:27)
[2016-11-09] MEDS: Lisinopril 40 Tablet PO SCH ×2 (07:28→19:52)
[2016-11-09] MEDS: Ondansetron 2 mg/mL 2 mL Inj IVPUSH PRN ×2 (08:41→21:15)
[2016-11-09] MEDS: Cholestyramine Resin Powder 4 Gm Packet PO SCH (08:43)
[2016-11-09] MEDS ORDERED: Potassium Chloride 20 mEq SR Tablet PO ONE (09:10)
--- NOTE | 2016-11-09 10:28 | PCM.PHAPRO ---
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 high dose requirement p/ Increase to 7.5mg/d and follow /gsf Valerio Molina S Pharm D Nov 09, 2016 10:28
--- NOTE | 2016-11-09 11:06 | PCM.PNMED ---
Subjective Date of Service Nov 09, 2016 Subjective Patient continues to have nausea, gastric pain, generalized malaise, anxiety. She is not comfortable yet with self Lovenox injections. Nursing stuff continues to provide support. warfarin dose increased to 7.5 today. INR 1.00. Plan to discharge tomorrow with Lovenox injections x 3 days, Warfarin and INR clinic follow up on Saturday. Exam Vital Signs Vital Sign - Last Date Time Temp Pulse Resp B/P Pulse Ox O2 Delivery O2 Flow Rate FiO2 11/09/16 07:30 Supplement Oxygen 11/09/16 07:24 36.4 77 18 169/107 94 1.50 Intake and Output 11/08/16 11/08/16 11/09/16 Cumulative From/Thru 15:00 23:00 07:00 11/05/16 12:27 - 11/09/16 06:14 Intake Total 1000 ml 200 ml 6507 ml Output Total 2475 ml 950 ml 8175 ml Balance -1475 ml -750 ml -1668 ml Intake Oral 1000 ml 200 ml 3663 ml IV Total 2844 ml Output Urine Total 2475 ml 950 ml 7875 ml Urine/Stool Mix 300 ml # Bowel Movements 7 Exam General: Chronically appearing female laying in bed, mildly anxious HEENT: NC/AT, eyes, PERRLA, EOMI, neck, soft supple, no adenopathy Lungs: Diffuse rales, no use of accessory muscles of respiration Heart: Regular rate and rhythm, no murmur, S1-S2 present, no rub, no click, distant heart sounds Abdomen: Soft, nontender, nondistended, bowel sounds active, no rebound, no guarding Muscular skeletal: No edema Neurologic: Grossly neurologically intact Psychiatric: Appropriate mood and affect Lab and Diagnostics Result Diagram: 11/09/165 11/09/165 X-Rays, CTs and MRIs X-RAY CHEST IMPRESSION: Increased pulmonary vascularity with coarsened bibasilar opacities. Findings are suggestive of edema. Underlying areas of airspace disease within the bases cannot be excluded. Dictated and approved by: Fannie Tabares M.D. on 11/05/2016 at 13:01 CT ANGIO CHEST IMPRESSION: 1. Heterogeneous filling defects predominantly within the right upper and middle bladder lobes within the tertiary branches of the pulmonary artery most consistent with pulmonary emboli. 2. Bilateral appearance of prominent groundglass like opacities within the lungs bilaterally. These can be seen with infection or inflammation. 3. Marked interval increase in size of previously identified sub-centimeters right upper lobe nodule, concerning for neoplastic disease. In addition, the lungs demonstrate interval development of bilateral pleural effusions as well as ill-defined areas of nodular coarsening. The latter could be related to areas of edema or poorly visualized areas of nodularity partially obscured by groundglass opacities and effusions. Recommend interval followup to document resolution. Dictated and approved by: Fannie Tabares M.D. on 11/05/2016 at 16:04 Cardiac Echo Impressions Echocardiogram Report Interpretation Summary There is mild concentric left ventricular hypertrophy. Left ventricular systolic function is borderline reduced. Left ventricular ejection fraction is estimated to be 50%. There has been no significant change since the previous study. There is hypokinesis of the basal inferior and inferolateral wall. The right ventricle is normal in size and function. The right ventricular systolic pressure is estimated at 42 mmHg assuming a right atrial pressure of 8 mm Hg. The left atrium is severely dilated. Right atrial size is normal. There is severe mitral regurgitation. There has been no significant change since the previous study. There is no other significant valvular heart disease. The ascending aorta is at the upper limits of normal in size. Reading Physician:PM Assessment & Plan Kayy No is a 71 year old female with a medical history including CHF, CAD , hypertension, asthma, atrial fibrillation, COPD, and recent C.Diff infection presented to [facility] via EMS due to dyspnea onset 2 days ago. Patient has been admitted for treatment and management of pulmonary emboli and severe hypokalemia.Hospital day 5. 1. Pulmonary emboli, present on admission. Active -CT angio chest revealed heterogeneous filling defects predominantly within the right upper and middle bladder lobes within the tertiary branches of the pulmonary artery most consistent with pulmonary emboli. -Likely provoked one by new diagnosis of lung mass -DCd Heparin drip, started Lovenox 80 mg subq q12h with transitioning to Warfarin, 7.5 mg ordered by pharmacy for today. 2. Clostridium difficile, present on admission. Active -Completed vanco po on October 18 -Vanco 125 mg q6h by mouth (day 2) -vanco taper per Dr Veronica : Vancomycin 125 p.o. q.i.d. for two weeks, then Vanco 125 p.o. b.i.d. for two weeks, then vancomycin 125 p.o. once a day for two weeks, then Vanco 125 every other day for two weeks 3. Irin deficiency normocytic anemia, chronic, present on admission -Most likely d/t chronic disease -Iron panel pending -Ferrous sulfate 325 mg bid by mouth daily -Colace 100 mg bid by mouth daily 4. Hypokalemia, present on admission. Resolved -Most likely due to home Lasix w/o sufficient standard replacement of K, Beta- raina -Potassium of 3.1 this morning. Replaced with Potassium Chloride 20 meq PO -Continue to monitor 5. Elevated troponin, present on admission. Presumed stable -Patient has intermittent chest pain no different than usual baseline. EKG shows sinus rhythm, no acute ST elevation -Less likely acute ischemia, possibly demand due to stress and PE -Echo revealed left ventricular ejection fraction 50% and severe mitral regurgitation. 6. CHF without exacerbation, present on admission. Improved -Chest x-ray findings suggestive of pulmonary edema -Increased Pro-BMP -Furosemide 40 mg IV push given in ED -Echo revealed left ventricular ejection fraction 50% and severe mitral regurgitation. -Resume home Furosemide, 40 mg once a day 7. COPD with out exacerbation, present on admission. Improved -Continue home albuterol inhaler, Brovana, Budesonide. -Supplemental O2 as needed -No need for steroid for now -No evidence of infection,afebrile,no leukocytosis ,will avoid abx unless clear evidence of infection given history of recurrent c.dif 8. Right upper lobe lung mass, present on admission. Active -CT angio chest revealed marked interval increase in size of previously identified sub-centimeters right upper lobe nodule, concerning for neoplastic disease. In addition, the lungs demonstrate interval development of bilateral pleural effusions as well as ill-defined areas of nodular coarsening. The latter could be related to areas of edema or poorly visualized areas of nodularity partially obscured by groundglass opacities and effusions. -Spoke with IR,they recommend outpatient IR once more stable with lovenox bridging -Palliative care consult. 9. Hypercalcemia, present on admission. Active -Most likely due to neoplasm -PTH and Vit D normal 10. Anemia, chronic, present on admission. Active -Stool occult blood requested, patient did not have bowel movement yet -Continue Ac, benefit outweighs risk 11.Hypothyroidism -Stable, continue Levothyroxine 200 mcg daily 12.GERD -Pantoprazole Admission status: Inpatient Disposition: Most likely home tomorrow on Warfarin with bridging Lovenox. Patient declines to follow up for lung mass biopsy.Patient has changed her code status to DNR/DNI. GI Prophylaxis: Proton Pump Inhibitor VTE Prophylaxis: Sub-Q Enoxaparin, Other (heparin drip) Resuscitation Status: Limited Interventions (compressions, cardioversion/ defibrillation, BiPAP, medications and IV fluid) Attending Statement The patient was seen and examined together with Dr. Schilling on 11/09/16 and I agree with the history, exam and plan as outlined in the note above. Teresita Schilling DO Nov 09, 2016 11:06 Nikita Brewer MD Nov 09, 2016 14:03
--- NOTE | 2016-11-09 11:31 | NUR ---
Social Work- Readiness for Discharge D: EMR reviewed. Pt is on day 4 of hospitalization for PE, Hypoxia, Lung Mass, and Hypokalemia per H&P. Pt is nearing discharge, anticipate 1 more day. Per ID notes, pt to have another course of vancomycin with a long taper. Pt to discharge with Lovanox, pt able to administer Lovanox injections. Pt has declined HH. Pt is SBA in room. Pt to discharge home via POV once medically stable. No anticipated discharge needs. SW will continue to follow. A: Pt who is I at baseline and lives with her spouse. P: Pt to discharge home via POV once medically stable. No anticipated discharge needs. SW will continue to follow. [facility]
--- NOTE | 2016-11-09 11:48 | PROG NOTE ---
[address] [address] PROGRESS NOTE PATIENT: VENANCIO GOMEZ : 1945 MR#: [id number] ADMIT: 11/05/2016 JOB ID: [id number] DATE: 11/09/2016 INFECTIOUS DISEASE FOLLOWUP NOTE: REASON FOR FOLLOWUP: Possible recurrent C. diff. INTERVAL HISTORY: The patient reports that her diarrhea has already resolved. Note that she has only been in the hospital for about 4-1/2 days, so it is possible that the oral vancomycin could already have worked this rapidly. She complains of nausea without vomiting. As noted, her diarrhea has resolved. No fevers or chills. She has a chronic cough and chronic mild shortness of breath. PHYSICAL EXAMINATION: Reveals an afebrile woman. Temp 36.4, pulse 77, respiratory rate 18, blood pressure 169/107, saturating reasonably well on 1.5 L. She is in no acute distress. Lungs are clear. Cardiac tones without new murmur. Abdomen soft and nontender. No skin rash. LABORATORIES: Include white count 3200 today, platelet count 203. Creatinine 0.96. LFT are normal. Albumin low at 3.2. Micro studies includes just the C. diff positive. A chest x-ray done yesterday shows mild cardiomegaly and pulmonary edema. IMPRESSION: As noted in yesterday's consult, it is extremely difficult to tell whether or not the patient has ongoing Clostridium difficile or not. The Clostridium difficile PCR will stay positive for weeks to months, and the patient may have some other cause of her diarrhea of a relatively mild diarrhea. The fact she has improved so quickly with respect to her diarrhea would argue against Clostridium difficile, which typically takes 4-5 days to improve but we cannot exclude the possibility that some of her gastrointestinal symptomatology is due to Clostridium difficile. RECOMMENDATIONS: 1. Vancomycin in the taper that was described yesterday. 2. Should the patient continue to suffer with significant diarrhea, which remains C. diff positive, referral to one of the [facility] or clinics which do stool transplant would be the next indicated therapy. 3. Infectious Disease will sign off at this time.
[2016-11-09] MEDS ORDERED: Albuterol-Ipratropium 3 mL Inhalation Solution NEB PRN (13:40)
--- NOTE | 2016-11-09 17:53 | NUR ---
Anxiety/Pain Pt. was given xanax 0.5mg PO twice this shift due to anxiety that is building up. Pt. states her pain also adds to her anxiety and has been c/o pain on her left lower abdomen, lower back and shoulders. I gave pain medication oxycodone twice 5mg PO as well as morphine 2mg IV push for Pts. pain. She was also given zofran once 4mg IV push for nausea.
--- NOTE | 2016-11-09 22:27 | NUR ---
Transfer to [facility]: Report given to Alex Espinoza RN. Pt. transferred to room 248 via wheelchair. Pt. continues to complain of generalized pain. VSS. No overt signs or symptoms of distress.
--- NOTE | 2016-11-09 23:02 | NUR ---
Transfer Report given by Kenisha Lindsay RN. Pt arrived on unit at 2039 via wheelchair. Pt not on O2 upon arrival. O2 sats were 88%. Pt laced on NC at 2L which resulted in O2 sats of 93%. All other VSS. Pt chief complaint is of Nausea. Pt given 8mg approximately 100 Minutes at time complaint. Pt aware of time needed to wait before another dose can be given. Pt given warm blankets with one over abdomen and pt states "feels much better as long as I don't move." Pt expressed desire to rest. Pt oriented to room and call light. Pt currently resting with eyes closed. Care continues.
[2016-11-10 00:20] VITALS: PULSE 89; RESP 16; O2SAT 92
[2016-11-10] MEDS: Vancomycin 125 mg Oral Capsule PO SCH ×3 (02:32→14:35)
[2016-11-10 03:00] VITALS: BP 145/88; PULSE 74; RESP 17; O2SAT 96
[2016-11-10] MEDS: ALPRAZolam 0.25 mg Tablet PO PRN ×2 (05:46→12:14)
[2016-11-10] MEDS: Ondansetron 2 mg/mL 2 mL Inj IVPUSH PRN (05:49)
[2016-11-10 07:40] LABS: Mean Corpuscular Hemoglobin 29.8 pg (27.0-35.0); Mean Corpuscular Volume 95.8 fL (81-100)
[2016-11-10 07:45] VITALS: BP 161/101; PULSE 77; RESP 20; O2SAT 97
[2016-11-10] MEDS: Lisinopril 40 Tablet PO SCH (07:57)
[2016-11-10] MEDS: Pantoprazole 40 mg ER24 Tablet PO SCH (07:58)
[2016-11-10] MEDS ORDERED: Potassium Chloride 20 mEq SR Tablet PO SCH (08:00)
[2016-11-10 08:06] LABS: INR 0.99 ratio
[2016-11-10] MEDS: Cholestyramine Resin Powder 4 Gm Packet PO SCH (09:40)
--- NOTE | 2016-11-10 11:19 | PCM.DIMED ---
Tremayne Schillingsatoribio Lucero DO 11/10/16 1119: Discharge Instructions Date of Service Nov 10, 2016 Dates of Hospitalization Nov 05, 2016 at 17:07 Discharge Diagnosis Discharge Diagnosis 1. Pulmonary emboli, present on admission. Active 2. Clostridium difficile, present on admission. Active 3. Iron deficiency normocytic anemia, chronic, present on admission 4. Hypokalemia, present on admission. Resolved 5. Elevated troponin, present on admission. Presumed stable 6. CHF without exacerbation, present on admission. Improved 7. COPD with out exacerbation, present on admission. Improved 8. Right upper lobe lung mass, present on admission. Active 9. Hypercalcemia, present on admission. Active 10. Anemia, chronic, present on admission. Active 11.Hypothyroidism 12.GERD Medication Instructions 1. Please do Lovenox shots twice a day for the next 5 days. 2. Please take Warfarin 5 mg daily. Go to INR clinic on Saturday to check your INR. This is very important! Warfarin dose will need to be adjusted until your INR is therapeutic. 3. Please continue taking Vancomycin as following: -125 mg four times a day for the next 10 days -125 mg twice a day for the next 2 weeks -125 mg once a day for the next 2 weeks -125 mg every other day for the next 2 weeks If you continue to have frequent diarrhea after this treatment , you can be referred to one of the [facility] which perform stool transplant. 4. I also give you a prescription for the following: -Alprazolam 0.5 mg by mouth twice a day as needed for anxiety -Zofran 4mg by mouth twice a day as needed for nausea -Oxycodone 5 mg by mouth every 6 hours as needed for pain Please use these medications sparingly. Do not combine them with alcohol or any drugs. Call 911 if you develop acute chest pain, irregular heart palpitations, shortness of breath or any other life threatening symptoms. Contact your PCP prescription refill as needed. Diet Heart Healthy Activity Limited until seen by PCP Call your provider Fever or Chills, Shortness of breath, Bleeding, Chest pain, Vomitting, Excessive diarrhea, Weakness (unilateral) Patient Instructions Follow-up plan Please go to INR clinic or your PCP clinic and have your INR CHECKED ON SATURDAY! Follow-up Provider: Davin Galan MD Follow-up with PCP in: 1 week Nikita Brewer MD 11/10/16 2225: Discharge Instructions Attending's Statement patient seen with Dr Schilling on 11/10 ,agree with the instructions Teresita Schilling DO Nov 10, 2016 11:19 Nikita Brewer MD Nov 10, 2016 22:25
[2016-11-10] MEDS ORDERED: LOV80 SUBQ ×2 (11:22→11:24)
[2016-11-10] MEDS ORDERED: WARF5TAB7 PO (11:23)
[2016-11-10] MEDS ORDERED: VANC125C3 PO (11:32)
--- NOTE | 2016-11-10 12:45 | NUR ---
Social Work: Discharge Data: Pt is on day 5 of hospitalization. EMR reviewed. D/C orders are in. Pt declined HH. No further d/c planning needed. TECHNICIAN HELPER INSTRUMENT will continue to follow if needs arise. Assessment: Pt who is independent at baseline. Plan: Pt will d/c home via POV today. Pt declined HH. No further d/c planning needed. TECHNICIAN HELPER INSTRUMENT will continue to follow if needs arise. [facility]
--- NOTE | 2016-11-10 16:05 | NUR ---
Discharge Patient left floor via wheelchair at 1450 to be driven home by . Brandt d/c'd at 1230. Patient educated on importance of voiding after Brandt removal. Patient voided prior d/c. Both IV's d/c'd intact. All d/c information discussed with patient including medications and follow up appointments. All belongings left with patient.
--- NOTE | 2016-11-10 17:09 | PCM.DC.MED ---
Discharge Summary Date of Service Nov 10, 2016 Dates of Hospitalization Date of Hospital Admission Nov 05, 2016 at 17:07 Date of Discharge: Nov 10, 2016 Providers: Admitting Physician: Nikita Brewer MD Primary Care Physician: Davin Galan MD Attending Physician: Nikita Brewer MD Diagnosis at Time of Discharge Diagnosis at Time of Discharge 1. Pulmonary emboli, present on admission. Active 2. Clostridium difficile, present on admission. Active 3. Iron deficiency normocytic anemia, chronic, present on admission 4. Hypokalemia, present on admission. Resolved 5. Elevated troponin, present on admission. Presumed stable 6. CHF without exacerbation, present on admission. Improved 7. COPD with out exacerbation, present on admission. Improved 8. Right upper lobe lung mass, present on admission. Active 9. Hypercalcemia, present on admission. Active 10. Anemia, chronic, present on admission. Active 11.Hypothyroidism 12.GERD Consultations Dr. Jaswant M.D., palliative care Dr. Jeremías M.D., infectious disease Procedures XRay, CTs & MRIs X-RAY CHEST IMPRESSION: Increased pulmonary vascularity with coarsened bibasilar opacities. Findings are suggestive of edema. Underlying areas of airspace disease within the bases cannot be excluded. Dictated and approved by: Fannie Tabares M.D. on 11/05/2016 at 13:01 CT ANGIO CHEST IMPRESSION: 1. Heterogeneous filling defects predominantly within the right upper and middle bladder lobes within the tertiary branches of the pulmonary artery most consistent with pulmonary emboli. 2. Bilateral appearance of prominent groundglass like opacities within the lungs bilaterally. These can be seen with infection or inflammation. 3. Marked interval increase in size of previously identified sub-centimeters right upper lobe nodule, concerning for neoplastic disease. In addition, the lungs demonstrate interval development of bilateral pleural effusions as well as ill-defined areas of nodular coarsening. The latter could be related to areas of edema or poorly visualized areas of nodularity partially obscured by groundglass opacities and effusions. Recommend interval followup to document resolution. Dictated and approved by: Fannie Tabares M.D. on 11/05/2016 at 16:04 X-RAY CHEST ONE VIEW, PORTABLE IMPRESSION: Mild edema and cardiomegaly similar to prior examination. Dictated by: Brandon Jimenez [facility] Interpreted: April Serrano MD on 11/08/2016 at 14:50 Cardiac Echo Impression Echocardiogram Report Interpretation Summary There is mild concentric left ventricular hypertrophy. Left ventricular systolic function is borderline reduced. Left ventricular ejection fraction is estimated to be 50%. There has been no significant change since the previous study. There is hypokinesis of the basal inferior and inferolateral wall. The right ventricle is normal in size and function. The right ventricular systolic pressure is estimated at 42 mmHg assuming a right atrial pressure of 8 mm Hg. The left atrium is severely dilated. Right atrial size is normal. There is severe mitral regurgitation. There has been no significant change since the previous study. There is no other significant valvular heart disease. The ascending aorta is at the upper limits of normal in size. Reading Physician:PM Brief History Per Admitting Physician: Nikita Brewer MD: History of Present Illness: Kayy No is a 71 year old female with a medical history including CHF, CAD , hypertension, asthma, atrial fibrillation, COPD, and recent C.Diff infection presented to [facility] Emergency Department via EMS due to dyspnea onset 2 days ago. She typically only uses oxygen 4L during the night but for the past 2 days she has had to wear 4L throughout the entire day. She reports her shortness of breath gives her great deal of anxiety and left sided chest pain at times. Patient reports associated chills, productive cough with clear phlegm,chronic diarrhea, patient just finished a course of Vanco for C-diff on . She denies fever. She was last hospitalized for sepsis on 09/12/16. In the Emergency Department her vital signs were: temperature 36.2C, pulse 77, respiration rate 18, blood pressure 145/82, pulse oximetry 80 % on room air. EKG wan normal: sinus rhythm with rate of 66. Chest x-ray suggestive of edema. CT angio chest reveled heterogeneous filling defects predominantly within the right upper and middle bladder lobes within the tertiary branches of the pulmonary artery most consistent with pulmonary emboli. Patient's lab was significant for white blood cell count 4.1, hemoglobin 8.3, hematocrit 26.7, platelets 217. Patient's CMP was significant for potassium of 2.5, creatinine of 1.14, calcium 10.7, magnesium 1.4, troponin 0.024, BNP 1568. Hospital Course 1. Pulmonary emboli, present on admission. Ongoing CT angio chest revealed heterogeneous filling defects predominantly within the right upper and middle bladder lobes within the tertiary branches of the pulmonary artery most consistent with pulmonary emboli. -Likely provoked one by new diagnosis of lung mass. patient treated with heparin drip, started on warfarin with bridging lovenox and discharged on both with the instructions to follow up with INR clinic within the next 2-3 days. 2. Clostridium difficile, present on admission. Active Previous infection treated with vancomycin finished on 10/18/16. Started another course of treatment in the hospital per infectious disease with instructions to continue treatment course at home. 3. Iron deficiency normocytic anemia, chronic, present on admission Most likely d/t chronic disease. Iron panel showed decreased iron levels at 29, TIBC 342, percent saturation 8, unsaturated iron-binding 315.4, transferrin 284 , transferrin percent saturation 7, ferritin 44. Started on oral Ferrous sulfate 325 mg bid by mouth daily throughout hospital stay. Recommended outpatient follow up with PCP. 4. Hypokalemia, present on admission. Resolved -Most likely due to home Lasix w/o sufficient standard replacement of K, Beta- raina. Patient had multiple replaced with oral and IV Potassium Chloride. Normalized potassium on the day of discharge. 5. Elevated troponin, present on admission. Presumed stable Patient had intermittent chest pain which was no different than usual baseline. EKG showed sinus rhythm, no acute ST elevation.This was Less likely due to acute ischemia and possibly secondary to demand ischemia as in #1 compounded by #3. Echo revealed left ventricular ejection fraction 50% and severe mitral regurgitation. 6. CHF without exacerbation, present on admission. Improved Chest x-ray findings suggestive of pulmonary edema. Echo revealed left ventricular ejection fraction 50% and severe mitral regurgitation. Increased Pro-BMP on admission. Furosemide 40 mg IV push given in ED, resumed home furosemide 40 mg daily 7. COPD with out exacerbation, present on admission. Resolved Continued home albuterol inhaler, Brovana, Budesonide and supplemental O2. Steroid administration held during this admission as there was no evidence of infection,afebrile,no leukocytosis. 8. Right upper lobe lung mass, present on admission. Active -CT angio chest revealed marked interval increase in size of previously identified sub-centimeters right upper lobe nodule, concerning for neoplastic disease. In addition, the lungs demonstrated interval development of bilateral pleural effusions as well as ill-defined areas of nodular coarsening. The latter could be related to areas of edema or poorly visualized areas of nodularity partially obscured by groundglass opacities and effusions. Interventional radiology recommended outpatient interventional after regression of Lovenox bridge. Palliative care consulted CODE STATUS changed to DNR/DNI, and patient refused additional desiccation to the nature of her pulmonary nodules 9. Hypercalcemia, present on admission. Active Most likely due to neoplasm. PTH and Vit D normal 11.Hypothyroidism Stable, continued Levothyroxine 200 mcg daily 12.GERD Pantoprazole daily Exam Vital Signs (Last) Date Time Temp Pulse Resp B/P Pulse Ox O2 Delivery O2 Flow Rate FiO2 11/10/16 08:00 Supplement Oxygen 11/10/16 07:45 36.5 77 20 161/101 97 2.00 Exam General: Chronically appearing female laying in bed, mildly anxious HEENT: NC/AT, eyes, PERRLA, EOMI, neck, soft supple, no adenopathy Lungs: Diffuse rales, no use of accessory muscles of respiration Heart: Regular rate and rhythm, no murmur, S1-S2 present, no rub, no click, distant heart sounds Abdomen: Soft, nontender, nondistended, bowel sounds active, no rebound, no guarding Muscular skeletal: No edema Neurologic: Grossly neurologically intact Psychiatric: Appropriate mood and affect Test 11/05/16 13:19 11/06/16 05:20 11/06/16 11:11 11/06/16 17:24 D-Dimer 1.20mg/L FEU (<0.50) Lactic Acid Level 0.8mmol/L (0.4-2.0) Pro-B-Type Natriuretic Peptide 1538pg/mL (0-301) Parathyroid Hormone (Intact) 14pg/mL (15-65) Calcium (Send out) 10.0mg/dL (8.7-10.3) Ionized Calcium 1.25mmol/L (1.17-1.32) Vitamin D 25-Hydroxy 52.7ng/mL (30.0-100.0) Parathyroid Hormone Interpretation Comment (.) Total Intact Parathyroid Hormone 14pg/mL (15-65) Magnesium Level 2.0mg/dL (1.6-2.6) Test 11/07/16 12:10 11/07/16 12:58 11/08/16 03:13 11/09/16 03:15 Activated Partial Thromboplast Time 24.0sec (22.8-33.0) Urine Color Straw (YELLOW) Urine Appearance Clear (CLEAR,HAZY) Urine pH 8.5 (5.0-8.0) Urine Specific [place] 1.010 (1.003-1.035) Urine Protein Negativemg/dL (NEG,TRACE) Urine Glucose (UA) Negativemg/dL (NEGATIVE) Urine Ketones Negativemg/dL (NEGATIVE) Urine Occult Blood Negative (NEGATIVE) Urine Nitrite Negative (NEGATIVE) Urine Bilirubin Negative (NEGATIVE) Urine Urobilinogen Normalmg/dL (NORMAL) Urine Leukocyte Esterase Negative (NEGATIVE) Urine RBC 0-2/hpf (0-2) Urine WBC 0-5/hpf (0-5) Urine Epithelial Cells Occasional/hpf (NONE-MOD) Urine Crystals None seen (NONE SEEN) Urine Bacteria Few/hpf (NONE-FEW) Urine Hyaline Casts None/lpf (NONE) Urine Granular Casts None seen (NONE SEEN) Urine Waxy Casts None seen (NONE SEEN) Urine Red Blood Cell Casts None seen (NONE SEEN) Urine White Blood Cell Casts None seen (NONE SEEN) Urine Mucus None seen (None Seen) Urine Trichomonas None seen (NONE SEEN) Urine Yeast None (NONE SEEN) Urinalysis Comment None Urine Culture Reflexed Not indicated Iron Level 29ug/dL (.) Total Iron Binding Capacity 342ug/dL (250-450) Percent Iron Saturation 8%sat (15-50) Unsaturated Iron Binding 315.4ug/dL Transferrin 284mg/dL (.) Transferrin % Saturation 7 (.) Ferritin 44ng/mL (13-150) Lactate Dehydrogenase 202U/L (100-190) Troponin T 0.011ug/L (0.0-0.011) Vitamin B12 Level 415pg/mL (211-946) Folate 4.8ng/mL (>3.0) Neutrophils (%) (Auto) 52.9% (40-74) Lymphocytes (%) (Auto) 24.3% (14-46) Monocytes (%) (Auto) 17.8% (4-12) Eosinophils (%) (Auto) 4.4% (0-5) Basophils (%) (Auto) 0.3% (0-3) Total Bilirubin 0.3mg/dL (0.0-1.2) Aspartate Amino Transf (AST/SGOT) 15U/L (0-50) Alanine Aminotransferase (ALT/SGPT) 7U/L (0-32) Alkaline Phosphatase 62U/L (25-165) Total Protein 6.3g/dL (6.4-8.4) Albumin 3.2g/dL (3.4-5.0) Test 11/10/16 07:10 White Blood Count 4.4th/mm3 (3.8-10.1) Red Blood Count 2.65mil/mm3 (3.90-5.20) Hemoglobin 7.9g/dL (12.0-15.6) Hematocrit 25.4% (35.0-46.0) Mean Corpuscular Volume 95.8fL (81-100) Mean Corpuscular Hemoglobin 29.8pg (27.0-35.0) Mean Corpuscular Hemoglobin Concent 31.1% (32.0-37.0) Red Cell Distribution Width 14.9% (12.3-15.4) Platelet Count 218bil/L (150-400) Prothrombin Time 10.6sec (8.1-12.5) Prothromb Time International Ratio 0.99ratio Sodium Level 140mEq/L (134-144) Potassium Level 3.9mEq/L (3.5-5.2) Chloride Level 98mEq/L (97-108) Carbon Dioxide Level 28mmol/L (18-29) Blood Urea Nitrogen 10mg/dL (8-27) Creatinine 0.83mg/dL (0.57-1.00) Estimat Glomerular Filtration Rate 98mL/min (>59) Glucose Level 99mg/dL (60-99) Calcium Level 10.0mg/dL (8.5-10.1) Microbiology Results Stool positive for C. difficile toxin Local blood negative Discharge Medications Discharge Medications Arformoterol Tartrate (Brovana) 15 Mcg/2 Ml Vial.neb 15 MCG IH DAILY (Reported) Aspirin Chew (Aspirin Chew) 81 Mg Chew 81 MG PO DAILY Prescribed by: CLEVELAND BENITEZ DO Budesonide (Budesonide) 1 Mg/2 Ml Ampul.neb 1 MG IH DAILY (Reported) Carvedilol (Carvedilol) 6.25 Mg Tablet 6.25 MG PO BIDWM Prescribed by: CLEVELAND BENITEZ DO Enoxaparin (Lovenox) 80 Mg/0.8 Ml Syringe 80 MG SUBQ Q12 Prescribed by: DOUG VERMA DO Levothyroxine (Levothyroxine) 200 Mcg Tablet 200 MCG PO QAM (Reported) Lisinopril (Lisinopril) 40 Mg Tablet 40 MG PO BID (Reported) Magnesium (Magnesium) 200 Mg Tablet 200 MG PO BIDWM (Reported) Omeprazole (Omeprazole) 40 Mg Capsule.dr 40 MG PO QAM (Reported) Potassium Chloride (Potassium Chloride) 10 Meq Capsule.er 10 MEQ PO BIDWM ( Reported) TAKE WITH FOOD Vit#96/Ferrous Fum/FA ( Tablet) 1 Each Tablet 1 TABLET PO DAILY Prescribed by: RAGINI MARINO DO Ranitidine (Ranitidine) 300 Mg Tablet 300 MG PO HS (Reported) Sertraline HCl (Sertraline) 20 Mg/1 Ml Oral.conc 100 MG PO QAM (Reported) Spironolactone (Aldactone) 25 Mg Tablet 25 MG PO DAILY Prescribed by: CLEVELAND BENITEZ DO Trazodone (Trazodone) 100 Mg Tablet 100 MG PO HS (Reported) Triamcinolone Acetonide (Nasacort) 10.8 Ml [place] 2 SPRAYS NS DAILY (Reported) Vancomycin (Vancomycin) 125 Mg Capsule 125 MG PO ASDIRECTED Prescribed by: DOUG VERMA DO Warfarin Sodium (Warfarin Sodium) 5 Mg Tablet 5 MG PO DAILY Prescribed by: DOUG VERMA DO As needed Acetaminophen (Acetaminophen) 325 Mg Tablet 650 MG PO Q4H PRN PRN For Fever ( Reported) Albuterol Sulfate (Ventolin HFA Inhaler) 200 Puff/18 Gm Inhaler 2 PUFF INH Q4H PRN PRN For Wheezing (Reported) Alprazolam (Alprazolam) 0.5 Mg Tablet 0.5 MG PO BID PRN PRN For Anxiety ( Reported) Furosemide (Furosemide) 40 Mg Tablet 40-80 MG PO QAM PRN PRN EDEMA (Reported) Ondansetron ODT (Ondansetron ODT) 4 Mg Tab.rapdis 4 MG PO Q8H PRN PRN For Nausea /Vomiting (Reported) Oxycodone (Roxicodone) 5 Mg Tablet 5 MG PO Q6H PRN PRN For Pain (Reported) Additional med instructions 1. Please do Lovenox shots twice a day for the next 5 days. 2. Please take Warfarin 5 mg daily. Go to INR clinic on Saturday to check your INR. This is very important! Warfarin dose will need to be adjusted until your INR is therapeutic. 3. Please continue taking Vancomycin as following: -125 mg four times a day for the next 10 days -125 mg twice a day for the next 2 weeks -125 mg once a day for the next 2 weeks -125 mg every other day for the next 2 weeks If you continue to have frequent diarrhea after this treatment , you can be referred to one of the [facility] which perform stool transplant. 4. I also give you a prescription for the following: -Alprazolam 0.5 mg by mouth twice a day as needed for anxiety -Zofran 4mg by mouth twice a day as needed for nausea -Oxycodone 5 mg by mouth every 6 hours as needed for pain Please use these medications sparingly. Do not combine them with alcohol or any drugs. Call 911 if you develop acute chest pain, irregular heart palpitations, shortness of breath or any other life threatening symptoms. Contact your PCP prescription refill as needed. Followup Plan Disposition: Discharged to home in stable condition Follow-up plan Please go to INR clinic or your PCP clinic and have your INR CHECKED ON SATURDAY! Discharge Diet: Heart Healthy Discharge Activity: Limited until seen by PCP Follow-up Provider: Davin Galan MD Follow-up with PCP in: 1 week Time spent 35 minutes Attending Statement patient seen with Dr Verma on 11/10 ,agree with the summary copies to: Davin Galan MD, Oksana S DO Nov 10, 2016 17:09 Nikita Brewer MD Nov 10, 2016 22:27 Vancomycin (Vancomycin) 125 Mg Capsule 125 MG PO ASDIRECTED Prescribed by: DOUG VERMA DO Warfarin Sodium (Warfarin Sodium) 5 Mg Tablet 5 MG PO DAILY Prescribed by: DOUG VERMA DO As needed Acetaminophen (Acetaminophen) 325 Mg Tablet 650 MG PO Q4H PRN PRN For Fever ( Reported) Albuterol Sulfate (Ventolin HFA Inhaler) 200 Puff/18 Gm Inhaler 2 PUFF INH Q4H PRN PRN For Wheezing (Reported) Alprazolam (Alprazolam) 0.5 Mg Tablet 0.5 MG PO BID PRN PRN For Anxiety ( Reported) Furosemide (Furosemide) 40 Mg Tablet 40-80 MG PO QAM PRN PRN EDEMA (Reported) Ondansetron ODT (Ondansetron ODT) 4 Mg Tab.rapdis 4 MG PO Q8H PRN PRN For Nausea /Vomiting (Reported) Oxycodone (Roxicodone) 5 Mg Tablet 5 MG PO Q6H PRN PRN For Pain (Reported) Additional med instructions 1. Please do Lovenox shots twice a day for the next 5 days. 2. Please take Warfarin 5 mg daily. Go to INR clinic on Saturday to check your INR. This is very important! Warfarin dose will need to be adjusted until your INR is therapeutic. 3. Please continue taking Vancomycin as following: -125 mg four times a day for the next 10 days -125 mg twice a day for the next 2 weeks -125 mg once a day for the next 2 weeks -125 mg every other day for the next 2 weeks If you continue to have frequent diarrhea after this treatment , you can be referred to one of the [facility] which perform stool transplant. 4. I also give you a prescription for the following: -Alprazolam 0.5 mg by mouth twice a day as needed for anxiety -Zofran 4mg by mouth twice a day as needed for nausea -Oxycodone 5 mg by mouth every 6 hours as needed for pain Please use these medications sparingly. Do not combine them with alcohol or any drugs. Call 911 if you develop acute chest pain, irregular heart palpitations, shortness of breath or any other life threatening symptoms. Contact your PCP prescription refill as needed. Followup Plan Disposition: Discharged to home in stable condition Follow-up plan Please go to INR clinic or your PCP clinic and have your INR CHECKED ON SATURDAY! Discharge Diet: Heart Healthy Discharge Activity: Limited until seen by PCP Follow-up Provider: Davin Galan MD Follow-up with PCP in: 1 week oDug Verma DO Nov 10, 2016 17:09
== END 2016-11-10 14:50 | disposition home or self-care (01) | DRG 176 ==
LOC: SED 12:25 → PCC 17:07 → MOC 11-09 22:16
PROVIDERS: ADMIT Internal Medicine; ATTEND Internal Medicine
DX: I26.99 Other pulmonary embolism without acute cor pulmonale (principal); A04.7 Enterocolitis due to Clostridium difficile; I50.22 Chronic systolic (congestive) heart failure; E87.6 Hypokalemia; J44.9 Chronic obstructive pulmonary disease, unspecified; E03.9 Hypothyroidism, unspecified; I25.10 Atherosclerotic heart disease of native coronary artery without angina pectoris; I10 Essential (primary) hypertension; E78.5 Hyperlipidemia, unspecified; K21.9 Gastro-esophageal reflux disease without esophagitis; Z51.5 Encounter for palliative care; F17.210 Nicotine dependence, cigarettes, uncomplicated; D50.9 Iron deficiency anemia, unspecified; R91.8 Other nonspecific abnormal finding of lung field

== ENCOUNTER 2016-11-24 12:05 | Inpatient (IN) | payer MEDICARE ==
[~2016-11-24] VITALS: Ht 157.5 cm; Wt 82.0 kg
[~2016-11-24 12:05] MED LIST changes: +ACET325T51 PO; -ATRINH INH; -FURO-128 PO; +FURO40TA4 PO; -HYDR-4003 PO; +LEVO200T6 PO; -LEVO50TA6 PO; -LISI30TA5 PO; +LISI40TA PO; +LOV80 SUBQ; +MAGN200T PO; +OMEP40CA36 PO; +ONDA4TAB12 PO; +OXYC-474 PO; +POTA10CA42 PO; +RANI300T4 PO; +SERT20OR6 PO; -SERT50TA9; +TRAZ-118 PO; +TRIA10.8 NS; +WARF5TAB7 PO
[2016-11-24 12:10] VITALS: BP 167/81; PULSE 63; RESP 16; O2SAT 95
--- NOTE | 2016-11-24 12:30 | ED.REPORT ---
HPI-Dyspnea / Wheezing Date of Service Nov 24, 2016 ED Provider: Sudheer Alva MD 71 year old female anticoagulated on warfarin with a history of CHF, COPD, atrial fibrillation, CAD, hyperlipidemia, and HTN presents to the ER accompanied by her complaining of shortness of breath and chest pain since being released from the hospital 10 days ago, dramatically worsening over the past three days with dyspnea with minimal exertion. Patient was admitted recently for similar symptoms and diagnosed with multiple PE's, worsening lung cancer, and COPD. She does not recall an exertional component to her chest pain. Pain is described as "tightness" and rated as moderate in severity currently, though slightly more severe at worst. Associated symptoms include nausea, and chills. Patient denies radiation of pain, increased lower extremity swelling, and change in cough. Symptoms have prevented her from sleeping. She is on home O2. INR 1.8 yesterday. Nursing Notes Stated Complaint: SOB/CHEST PAIN Nursing Notes Reviewed: Yes (Wattage reconciled @1405) Allergies: Coded Allergies: Penicillins (Verified Allergy, Severe, ANAPHYLAXIS, 11/05/16) bupropion (Verified Allergy, Intermediate, NAUSEA, 11/05/16) Influenza Virus Vaccines (Unverified Allergy, Unknown, 11/06/16) ENTERED FROM UNCODED ALLERGIES fluoxetine (Verified Allergy, Unknown, 11/05/16) sulfasalazine (Verified Allergy, Unknown, UNKNOWN, 11/05/16) Uncoded Allergies: FLU VACCINE (Adverse Reaction, Severe, NAUSEA/ VOMITTING, 01/24/16) Scheduled Arformoterol Tartrate (Brovana) 15 Mcg/2 Ml Vial.neb 15 MCG IH DAILY Aspirin Chew (Aspirin Chew) 81 Mg Chew 81 MG PO DAILY Budesonide (Budesonide) 1 Mg/2 Ml Ampul.neb 1 MG IH BID Carvedilol (Carvedilol) 6.25 Mg Tablet 6.25 MG PO BIDWM Furosemide (Furosemide) 40 Mg Tablet 20 MG PO BID Levothyroxine (Levothyroxine) 200 Mcg Tablet 200 MCG PO QAM Lisinopril (Lisinopril) 40 Mg Tablet 40 MG PO BID Magnesium (Magnesium) 200 Mg Tablet 200 MG PO BIDWM Omeprazole (Omeprazole) 40 Mg Capsule.dr 40 MG PO QAM Potassium Chloride (Potassium Chloride) 10 Meq Capsule.er 10 MEQ PO BIDWM TAKE WITH FOOD Vit#96/Ferrous Fum/FA ( Tablet) 1 Each Tablet 1 TABLET PO DAILY Ranitidine (Ranitidine) 300 Mg Tablet 300 MG PO HS Sertraline HCl (Sertraline) 20 Mg/1 Ml Oral.conc 100 MG PO QAM Spironolactone (Aldactone) 25 Mg Tablet 25 MG PO DAILY Trazodone (Trazodone) 100 Mg Tablet 100 MG PO HS Triamcinolone Acetonide (Nasacort) 10.8 Ml [place] 2 SPRAYS NS DAILY Vancomycin (Vancomycin) 125 Mg Capsule 125 MG PO ASDIRECTED Warfarin Sodium (Warfarin Sodium) 10 Mg Tablet 10 MG PO DAILY Scheduled PRN Albuterol Sulfate (Ventolin HFA Inhaler) 200 Puff/18 Gm Inhaler 2 PUFF INH Q4H PRN PRN For Wheezing Alprazolam (Alprazolam) 0.5 Mg Tablet 0.5 MG PO BID PRN PRN For Anxiety Ondansetron ODT (Ondansetron ODT) 4 Mg Tab.rapdis 4 MG PO Q8H PRN PRN For Nausea /Vomiting Oxycodone (Roxicodone) 5 Mg Tablet 5 MG PO Q6H PRN PRN For Pain General Time Seen by MD: 12:12 Chief Complaint Chest pain, Shortness of breath Hx Obtained From: Patient Arrived By: Walk-in Sudden in Onset?: No Onset Occurred: More than a week ago... (10 days) Symptom Duration: Since onset Location: : Substernal Quality: Pressure Severity: Current: Moderate Severity: Maximum: Moderate Associated with: Reports: Chest pain, Cough, Nausea, Denies: Diaphoresis, Fever Pertinent Negative: Pt denies other symptoms Context Related History: Reports: COPD, Congestive heart failure, Coronary artery disease, Pneumonia Asthma History: Asthma diagnosed Recent Healthcare: Recent doctor visit, Recent hospitalization Similar Sx Previous: Yes Past Medical History Past Medical History Notes: PCP: Dr. Galan GI: Dr. Taveras Seen in emergency department 06/25/2016 for arellano-colitis (scheduled for 1 month from now?) Admit January 2015 for respiratory failure Past Medical History Moderate-sever mitral valve regurgitation, cardiac cath 02/2014 with normal coronaries. Echo 01/2015 LVEF 40-45% severe MR. Hiatal hernia Cardiomegaly Hypothyroidism Arellano Colitis 05/2016 Diverticulosis Chronic insomnia Colon polyps Pneumonia Depression Anxiety Reports: Asthma, COPD, Congestive heart failure, Coronary artery disease, GERD, Hyperlipidemia, Hypertension Reports: Atrial fibrillation, Urinary tract infection Past Surgical History Right knee surgery in 1967 Cardiac cath 2011, 2013 Hysterectomy in 2003 Reports: Cholecystectomy Smoking History Current Every Day Smoker Social History Lives with Alcohol Use: 3-5 per day Drug Use: Denies drug use, Other Other Social History: Good social support, Ambulatory Status Independent Review of Systems Constitutional: Denies: Chills, Fever Respiratory: Reports: Prod cough, clear, Shortness of breath Cardiovascular: Reports: Chest pain, Dyspnea on exertion Complete sys rev & neg: except as marked. GI: Denies: Abdominal pain, Diarrhea, Nausea, Vomiting Physical Exam Initial Vital Signs Vital Signs (First) Date Time Temp Pulse Resp B/P Pulse Ox O2 Delivery O2 Flow Rate FiO2 11/24/16 12:10 36.6 63 16 167/81 95 Nasal Cannula 3 Initial VS: Reviewed, Vital signs abnormal (worsened hypoxia) Head / Eyes: Atraumatic, Normocephalic Abdomen / GI: Soft, Non-tender, No guarding, No rebound, No distention Skin: Warm, Dry, No cyanosis Neurologic: Alert, Oriented, Nonfocal General/Constitutional: Awake, Alert, Well developed Appearance / Presentation: Positive: Uncomfortable Fatigued Neck: Atraumatic, Supple, No meningismus, Full range of motion, No swelling, Non-tender, No masses Diminished Breath Sounds: Positive: Decreased bilateral Wheezing / Retractions: Positive: Wheezing moderate Cardiovascular: Heart rate NL, Regular rhythm, Heart sounds NL, Peripheral circulation NL Lower Ext Edema: Positive: Bilateral 2+, Pitting Interpretation & Diagnostics Lab Results Interpretation Result Diagram: 11/24/16 1242 11/24/16 1242 Test 11/24/16 12:42 White Blood Count 3.8th/mm3 (3.8-10.1) Red Blood Count 2.67mil/mm3 (3.90-5.20) Hemoglobin 7.7g/dL (12.0-15.6) Hematocrit 25.3% (35.0-46.0) Mean Corpuscular Volume 94.8fL (81-100) Mean Corpuscular Hemoglobin 28.8pg (27.0-35.0) Mean Corpuscular Hemoglobin Concent 30.4% (32.0-37.0) Red Cell Distribution Width 15.7% (12.3-15.4) Platelet Count 199bil/L (150-400) Neutrophils (%) (Auto) 74.5% (40-74) Lymphocytes (%) (Auto) 11.7% (14-46) Monocytes (%) (Auto) 10.1% (4-12) Eosinophils (%) (Auto) 2.9% (0-5) Basophils (%) (Auto) 0.5% (0-3) Prothrombin Time 15.5sec (8.1-12.5) Prothromb Time International Ratio 1.44ratio Urine Color Yellow (YELLOW) Urine Appearance Clear (CLEAR,HAZY) Urine pH 8.0 (5.0-8.0) Urine Specific [place] 1.007 (1.003-1.035) Urine Protein Negativemg/dL (NEG,TRACE) Urine Glucose (UA) Negativemg/dL (NEGATIVE) Urine Ketones Negativemg/dL (NEGATIVE) Urine Occult Blood Trace (NEGATIVE) Urine Nitrite Negative (NEGATIVE) Urine Bilirubin Negative (NEGATIVE) Urine Urobilinogen Normalmg/dL (NORMAL) Urine Leukocyte Esterase Negative (NEGATIVE) Urine RBC 0-2/hpf (0-2) Urine WBC 0-5/hpf (0-5) Urine Epithelial Cells Moderate/hpf (NONE-MOD) Urine Crystals None seen (NONE SEEN) Urine Bacteria Moderate/hpf (NONE-FEW) Urine Hyaline Casts None/lpf (NONE) Urine Granular Casts None seen (NONE SEEN) Urine Waxy Casts None seen (NONE SEEN) Urine Red Blood Cell Casts None seen (NONE SEEN) Urine White Blood Cell Casts None seen (NONE SEEN) Urine Mucus None seen (None Seen) Urine Trichomonas None seen (NONE SEEN) Urine Yeast None (NONE SEEN) Urinalysis Comment None Urine Culture Reflexed Indicated Sodium Level 141mEq/L (134-144) Potassium Level 2.1mEq/L (3.5-5.2) Chloride Level 82mEq/L (97-108) Carbon Dioxide Level 49mmol/L (18-29) Blood Urea Nitrogen 17mg/dL (8-27) Creatinine 1.65mg/dL (0.57-1.00) Estimat Glomerular Filtration Rate 44mL/min (>59) Glucose Level 90mg/dL (60-99) Lactic Acid Level 1.1mmol/L (0.4-2.0) Calcium Level 11.8mg/dL (8.5-10.1) Magnesium Level 1.4mg/dL (1.6-2.6) Total Bilirubin 0.3mg/dL (0.0-1.2) Aspartate Amino Transf (AST/SGOT) 20U/L (0-50) Alanine Aminotransferase (ALT/SGPT) 10U/L (0-32) Alkaline Phosphatase 83U/L (25-165) Troponin T < 0.010ug/L (0.0-0.011) Pro-B-Type Natriuretic Peptide 1662pg/mL (0-301) Total Protein 6.7g/dL (6.4-8.4) Albumin 3.7g/dL (3.4-5.0) Hold Alejandro Top Tube Received (Received) ECG Interpretation ECG Interpretation: Sinus rhythm LVH with secondary repolarization abnormality Same as ECG 11/08/2016 Time: 12:39 Interpreted by: ED physician X-Ray Chest Interpretation Chest Xray Interpretation: IMPRESSION: Increased appearance of mild pleural effusions, edema and bibasilar opacities. The latter could be personal service representative of developing pneumonia versus focal atelectasis/edema. Dictated by: Fannie Tabares M.D. on 11/24/2016 at 13:28 Approved by: Fannie Tabares M.D. on 11/24/2016 at 13:28 View: Portable, 1 view Interpretation / Wet Read by: Interpret - ED physician Re-Eval/Medical Decision Med Decision/Clinical Course This is a 71-year-old who was recently hospitalized for bilateral multiple pulmonary emboli is on warfarin therapy seems shortness of breath and dyspnea on exertion. She denies fevers, she does have a chronic cough and reports is mildly worse. She does have an enlarging lung mass thought to be a lung CA but does not want any additional evaluation or testing for that. She was seen yesterday in the [facility] and determined to be subtherapeutic on her INR, was given a prescription for Lovenox, which was then declined by the insurance so she has not had any bridging therapy. She him barely walk a few feet now. When she was discharged to home she was on O2 at night, but over the past few days been using it daily. She does get some chest discomfort at that time as well with it. Than she seems frail, weak. She is not in any extremities at rest. She reports she still has some discomfort. The symptoms are similar to what she had previously. Please see the palliative care consultation obtained in her last admission, patient is DNR/DNI. Not want additional workup of the suspected lung malignancy. She was placed on additional O2 here, and was able to maintain adequate oxygen on nasal cannula. She is not in visible distress at rest, but has few rales, decreased breath sounds on auscultation. A chest x-ray suggests probable pleural effusions, and increased infiltrates, to my ass worse on the left for the infiltrate and worse on the right for the effusion. The patient does not have overt clinical features of sander infection, and the differential is extensive given the malignancy, PE, infarct from her recent PEs are all in the differential. Of note the patient is known to be subtherapeutic adenopathy unable to fill a prescription Lovenox, so she received Lovenox empirically awaiting his INR today, which confirmed again subtherapeutic levels. Blood work reveals no leukocytosis, normal troponin, severe hypokalemia-and replacement was initiated in the department. Given the wide differential pulmonary pathology, a repeat CT is planned, but a cousin with severe renal insufficiency, because the patient has a known PE and is subtherapeutic to the treatment is simply proper anticoagulation, after discussion with radiologist plan as a noncontrast CT. I discussed the situation the hospitalist, as I am not finding clear markers of sander infection necessitating antibiotics at this time, and so we are comfortable holding off if antibiotics, and will obtain a pro-calcitonin and a viral respiratory panel. The patient is being admitted for continued management. Source of Hx: Old records Re-Evaluation/Progress : Time of Eval: 14:50 Re-Evaluation/Progress Note: Discussed lab and imaging results and need for admission. Patient is amenable to the plan. All other questions addressed. Consultation : Referral / Consult Name: Burt Pearl MD Consulted With: Hospitalist Call Returned at: 14:37 Certified Adapted Physical Educator: Agrees with eval, Agrees with plan, Accepts admit Counseled Regarding: Diagnosis, Lab results, Need for admission Discharge & Departure Impression: Primary Impression: Pleural effusion Additional Impressions: SOB (shortness of breath) Hypoxia Hypokalemia Subtherapeutic international normalized ratio (INR) Anemia Anemia type: unspecified type Qualified Code: D64.9 - Anemia, unspecified Pulmonary embolism Pulmonary embolism type: other Chronicity: chronic Lung mass Disposition: ADMITTED TO HOSPITAL Discharge Condition All VS Reviewed: Yes Condition: Stable Referrals: Davin Galan MD (PCP) Claire Attestation Portions of this note were transcribed by Cristo Orellana. I, Dr. Alva, personally performed the history, physical exam and medical decision-making; I reviewed and confirmed the accuracy of the information in the transcribed note. Signed by: Claire Diop, 11/24/2016 and 14:42 copies to: Davin Galan MD, Matthew F MD Nov 24, 2016 12:30 CRISTO ORELLANA Nov 24, 2016 12:35
[2016-11-24] MEDS ORDERED: Ondansetron 2 mg/mL 2 mL Inj IVPUSH ONE ×2 (12:35→14:00)
[2016-11-24] MEDS: HYDROmorphone 0.5 mg/0.5 mL iSecure Syringe IVPUSH PRN ×2 (13:09→14:31)
[2016-11-24 13:12] LABS: BASOPHILS % (AUTO) 0.5 % (0-3); EOSINOPHILS % (AUTO) 2.9 % (0-5); MONOCYTES % (AUTO) 10.1 % (4-12); Mean Corpuscular Hemoglobin 28.8 pg (27.0-35.0); Mean Corpuscular Volume 94.8 fL (81-100); NEUTROPHILS % (AUTO) 74.5 % (40-74); Platelet Count 199 bil/L (150-400)
[2016-11-24 13:20] LABS: APPEARANCE,URINE CLEAR (CLEAR,HAZY); COLOR,URINE YELLOW (YELLOW); OCCULT BLOOD,URINE TRACE (NEGATIVE); UROBILINOGEN,URINE NORMAL (NORMAL)
[2016-11-24 13:29] LABS: INR 1.44 ratio
--- NOTE | 2016-11-24 13:30 | DRSVH ---
PROCEDURE: X-RAY CHEST ONE VIEW, PORTABLE ([id number]) INDICATIONS: CP TECHNIQUE: One view of the chest was acquired. COMPARISON: [facility], CR, XR CHEST 1VW (PORTABLE), 11/08/2016, 10:12. FINDINGS: Surgical changes and devices: None. Lungs and pleura: There is increased appearance of bibasilar opacities as well as mild blunting of th e costophrenic angles. Increased pulmonary vascularity is present. Mediastinum: Mediastinal contours appear normal. Heart size is normal. Bones and chest wall: No suspicious bony lesions. Overlying soft tissues appear unremarkable. IMPRESSION: Increased appearance of mild pleural effusions, edema and bibasilar opacities. The latter could be strategic partnership representative of developing pneumonia versus focal atelectasis/edema. Dictated by: Fannie Tabares M.D. on 11/24/2016 at 13:28 Approved by: Fannie Tabares M.D. on 11/24/2016 at 13:28
[2016-11-24 13:47] LABS: Magnesium 1.4 mg/dL (1.6-2.6); TROPONIN T < 0.010 ug/L (0.0-0.011)
[2016-11-24] MEDS ORDERED: WARF10TA4 PO (14:05)
[2016-11-24 14:10] VITALS: BP 181/99; PULSE 65; RESP 17; O2SAT 97
[2016-11-24] MEDS: Potassium Chloride 20 mEq SR Tablet PO SCH ×2 (14:24→16:57)
[2016-11-24] MEDS ORDERED: Alum-Mag Hydrox-Simeth 30 mL Suspension PO PRN ×2 (15:00→15:05)
[2016-11-24] MEDS ORDERED: Polyethylene Glycol (PEG) 17 Gm Powder PO PRN (15:00)
[2016-11-24] MEDS ORDERED: Ondansetron 2 mg/mL 2 mL Inj IVPUSH PRN (15:05)
--- NOTE | 2016-11-24 15:34 | PCM.HPMED ---
Subjective Date of Service Nov 24, 2016 Primary Provider: Admitting Physician: Primary Care Physician: Davin Galan MD Attending Physician: Admit Status: From the Emergency Department, Admit to [facility] Team Chief Complaint: Chest pain and shortness of breath History of Present Illness: Kayy No is a 71 year old female anticoagulated on warfarin with a history of congestive heart failure, chronic obstructive pulmonary disease, atrial fibrillation, coronary artery disease, hyperlipidemia, and hypertension presents [facility] Emergency Department accompanied by her complaining of shortness of breath and chest pain since being released from the hospital 10 days ago, (she was hospitalized from 11/05/16 to 11/10/16 for treatment and management of pulmonary emboly and hypokalemia) dramatically worsening over the past three days with dyspnea with minimal exertion. Patient was admitted recently for similar symptoms and diagnosed with multiple pulmonary emboli , worsening lung nodule, and chronic obstructive pulmonary disease. She does not recall an exertional component to her chest pain. Pain is described as "tightness" and rated as moderate in severity currently, though slightly more severe at worst. Associated symptoms include nausea, and chills. Patient denies radiation of pain, increased lower extremity swelling, and change in cough. Symptoms have prevented her from sleeping. She is on home oxygen. Her INR was 1.8 yesterday. In the emergency room her vital signs were: temperature 36.6, pulse 63, respiratory rate 16, blood pressure 167/81, pulse oximetry 95% on 3 liters of nasal cannula. Her white blood count was 3.8, hemoglobin 7.7, hematocrit 25.3, platelet 188. Sodium 141, potassium 2.1, chloride 82, carbon dioxide 49, blood urea nitrogen 17, creatinine 1,65, blood glucose 90. Calcium 11.8, magnesium 1.4 , pro-BNP 1662, troponin ,0.010. Lactic acid 1.1. INR 1.44. Electrocardiogram showed sinus rhythm and LVH with secondary repolarization abnormality, similar to electrocardiogram done on 11/08/16. Chest x-ray revealed pleural effusions, edema and bibasilar opacities. Chest CT without contrast taken and results are pending. She was given potassium chloride, 40 meq orally and enoxaparin sodium, 90 mg subcutaneously. Patient's primary care provider: Dr. Galan; Head And Neck Surgeon: Dr. Taveras Review of Systems: A comprehensive review of systems has been conducted with the patient and found to be negative except what is mentioned in the history of present illness. Allergies Coded Allergies: Penicillins (Verified Allergy, Severe, ANAPHYLAXIS, 11/05/16) bupropion (Verified Allergy, Intermediate, NAUSEA, 11/05/16) Influenza Virus Vaccines (Unverified Allergy, Unknown, 11/06/16) ENTERED FROM UNCODED ALLERGIES fluoxetine (Verified Allergy, Unknown, 11/05/16) sulfasalazine (Verified Allergy, Unknown, UNKNOWN, 11/05/16) Uncoded Allergies: FLU VACCINE (Adverse Reaction, Severe, NAUSEA/ VOMITTING, 01/24/16) Home Medications Scheduled Arformoterol Tartrate (Brovana) 15 Mcg/2 Ml Vial.neb 15 MCG IH DAILY Aspirin Chew (Aspirin Chew) 81 Mg Chew 81 MG PO DAILY Budesonide (Budesonide) 1 Mg/2 Ml Ampul.neb 1 MG IH BID Carvedilol (Carvedilol) 6.25 Mg Tablet 6.25 MG PO BIDWM Furosemide (Furosemide) 40 Mg Tablet 20 MG PO BID Levothyroxine (Levothyroxine) 200 Mcg Tablet 200 MCG PO QAM Lisinopril (Lisinopril) 40 Mg Tablet 40 MG PO BID Magnesium (Magnesium) 200 Mg Tablet 200 MG PO BIDWM Omeprazole (Omeprazole) 40 Mg Capsule.dr 40 MG PO QAM Potassium Chloride (Potassium Chloride) 10 Meq Capsule.er 10 MEQ PO BIDWM TAKE WITH FOOD Vit#96/Ferrous Fum/FA ( Tablet) 1 Each Tablet 1 TABLET PO DAILY Ranitidine (Ranitidine) 300 Mg Tablet 300 MG PO HS Sertraline HCl (Sertraline) 20 Mg/1 Ml Oral.conc 100 MG PO QAM Spironolactone (Aldactone) 25 Mg Tablet 25 MG PO DAILY Trazodone (Trazodone) 100 Mg Tablet 100 MG PO HS Triamcinolone Acetonide (Nasacort) 10.8 Ml Cullen 2 SPRAYS NS DAILY Vancomycin (Vancomycin) 125 Mg Capsule 125 MG PO ASDIRECTED Warfarin Sodium (Warfarin Sodium) 10 Mg Tablet 10 MG PO DAILY Scheduled PRN Albuterol Sulfate (Ventolin HFA Inhaler) 200 Puff/18 Gm Inhaler 2 PUFF INH Q4H PRN PRN For Wheezing Alprazolam (Alprazolam) 0.5 Mg Tablet 0.5 MG PO BID PRN PRN For Anxiety Ondansetron ODT (Ondansetron ODT) 4 Mg Tab.rapdis 4 MG PO Q8H PRN PRN For Nausea /Vomiting Oxycodone (Roxicodone) 5 Mg Tablet 5 MG PO Q6H PRN PRN For Pain PMH Moderate-sever mitral valve regurgitation, cardiac cath 02/2014 with normal coronaries Echo 01/2015 LVEF 40-45% severe mitral regurgitation Hiatal hernia Cardiomegaly Hypothyroidism Reardon Colitis 05/2016 Diverticulosis Chronic insomnia Colon polyps Pneumonia Depression Anxiety Asthma Chronic obstructive pulmonary disease Congestive heart failure Coronary artery disease Gastroesophageal reflex disease Hyperlipidemia Hypertension Atrial fibrillation Surgical History Right knee surgery in 1966 Cardiac cath 2011, 2013 Hysterectomy in 2003 Cholecystectomy Family History Emphysema (father) Social History Hx Alcohol Use: Yes (daily) Alcoholic Drinks Per Day: 2-10 drinks/day Hx Substance Use: No Hx Tobacco Use: Yes (1-2 drinks per day) Smoking Status: Current Every Day Smoker Living Arrangement: with Family Exam Vital Signs Vital Sign - Last Date Time Temp Pulse Resp B/P Pulse Ox O2 Delivery O2 Flow Rate FiO2 11/24/16 14:10 65 17 181/99 97 Nasal Cannula 3 11/24/16 12:10 36.6 Exam General: Chronically appearing female laying in bed, mildly anxious HEENT: normocephalic, autramatic, extra oculat muscles intact, pale conjunctiva , neck soft and supple, no adenopathy Lungs: Diffuse rales, decreased breath sounds, no use of accessory muscles of respiration Heart: Regular rate and rhythm, systolic murmur 2/6 at left upper substernal boarder Abdomen: Soft, nontender, mildly distended, bowel sounds active, no rebound, no guarding Lower extremities: Moderate pitting edema from knees to ankle Neurologic: Grossly neurologically intact Psychiatric: Appropriate mood and affect Lab and Diagnostics Result Diagram: 11/24/16 1242 11/24/16 1242 Cardiac Echo Impressions Echocardiogram 10/2016: There is mild concentric left ventricular hypertrophy. Left ventricular systolic function is borderline reduced. Left ventricular ejection fraction is estimated to be 50%. There has been no significant change since the previous study. There is hypokinesis of the basal inferior and inferolateral wall. Assessment & Plan Kayy No is a 71 year old female with a medical history including congestive heart failure, coronary artery disease, hypertension, asthma, atrial fibrillation, anticoagulated on warfarin, chronic obstructive pulmonary disease , recent Clostridium difficile infection presented to [facility] Emergency Department via EMS due to worsening chest pain and shortness of breath since discharge from the hospital 10 days ago. Patient has been admitted for treatment and management of anemia, severe hypokalemia and acute kidney injury. Hospital day 1. 1. Hypokalemia, present on admission. Active -Most likely due to home Lasix without sufficient standard replacement of potassium, use of beta-raina -Potassium of 2.1 on admission. Replaced with Potassium Chloride 40 meq -Repeat BMP at 5 pm and 9 pm -Potassium-magnesium replacement protocol in place -Continue to monitor 2. Acute on chronic kidney injury, present on admission. Active -Most likely due to dehydration, hypercalcemia, use of TIANNA-inhibitor -Will hold lisinopril 3. Hypomagnesemia, present on admission. Active -Potassium-magnesium replacement protocol in place -Repeat magnesium 8 pm 4. Hypercalcemia, present on admission. Active -Calcium has been high during last hospitalization as well; might be related to pulmonary neoplasm, PTH and Vitamin D normal during last admission -Discuss hospice care with patient if she continues to decline further investigate further the etiology of her lung nodule -Continue to monitor 5. Subtherapeutic INR, present on admission. Active -Patient was in the clinic yesterday checking her INR and was found to be subtherapeutic, she was given a prescription for lovenox which was declined by her insurance -INR 1.44 on admission, patient is on warfarin, 10 mg daily at home -Manage warfarin per pharmacy -Continue to monitor 6. Iron deficiency normocytic anemia, chronic, present on admission. Active -Most likely due to chronic disease -Hemoglobin and hematocrit of 7.7 and 25.3 (7.9 and 25.4 on discharge 10 days ago) -Ferrous sulfate, 325 mg twice a day and vitamin C, 500 mg daily -Continue to monitor 7. Possible CHF exacerbation, present on admission. Active -Chest x-ray findings suggestive of pulmonary edema and effusion -Increased Pro-BMP, 1662, (1538 on her last admission), patient gained 12 pounds since discharge; she decreased the dose of home lasix; fluid overloaded on physical exam -Furosemide, 40 mg intravenously once and reassess kidney function tomorrow -ECHO done this month revealed mild left ventricular hypertrophy, ejection fraction 50% and hypokinesis of the basal inferior and inferolateral wall -Continue to monitor 8. Possible COPD exacerbation, present on admission. Active -Continue home albuterol inhaler, Brovana, Budesonide -Supplemental O2 as needed -Consider starting steroids if no improvement -No evidence of infection: afebrile, no leukocytosis 9. Right upper lobe lung mass, present on admission. Active -CT angio chest revealed marked interval increase in size of previously identified sub-centimeters right upper lobe nodule, concerning for neoplastic disease. In addition, the lungs demonstrate interval development of bilateral pleural effusions as well as ill-defined areas of nodular coarsening. The latter could be related to areas of edema or poorly visualized areas of nodularity partially obscured by groundglass opacities and effusions. -Patient declined further work up (IR biopsy) during last admission 10.Recent clostridium difficile infection. Presumed stable -Patient was discharged on a ling course of oral vancomycin -Continue vancomycin, 125 mg twice a day (for the next 2 weeks) 11. Hypothyroidism, chronic. Presumed stable -Continue levothyroxine, 200 mcg daily 12. Gastroesophageal reflux disease, chronic. Presumed stable -Famotidine, 20 mg twice a day 13. Nicotine dependence, present on admission. Active -Nicotine patch, 21 mg every 24 hours Patient status: Inpatient, due to severity of presenting symptoms, risk of adverse events, and likely course of care, anticipated length of stay is more than 2 midnights. Pain Evaluation: Adequate Pain Control GI Prophylaxis: Proton Pump Inhibitor VTE Prophylaxis: Other (Warfarin per pharmacy) Resuscitation Status: DNR/DNI:Do Not Resuscitate/Intubate Attending Statement The patient was seen and examined together with Dr. Schilling on 11/24/2016 and I agree with the history, exam and plan as outlined in the note above. . Teresita Schilling DO Nov 24, 2016 15:34 Burt Pearl MD Nov 25, 2016 08:23 Pro-BMP on admission. Furosemide 40 mg IV push given in ED, resumed home furosemide 40 mg daily 7. COPD with out exacerbation, present on admission. Resolved Continued home albuterol inhaler, Brovana, Budesonide and supplemental O2. Steroid administration held during this admission as there was no evidence of infection,afebrile,no leukocytosis. 8. Right upper lobe lung mass, present on admission. Active -CT angio chest revealed marked interval increase in size of previously identified sub-centimeters right upper lobe nodule, concerning for neoplastic disease. In addition, the lungs demonstrated interval development of bilateral pleural effusions as well as ill-defined areas of nodular coarsening. The latter could be related to areas of edema or poorly visualized areas of nodularity partially obscured by groundglass opacities and effusions. Interventional radiology recommended outpatient interventional after regression of Lovenox bridge. Palliative care consulted CODE STATUS changed to DNR/DNI, and patient refused additional desiccation to the nature of her pulmonary nodules 9. Hypercalcemia, present on admission. Active Most likely due to neoplasm. PTH and Vit D normal 11.Hypothyroidism Stable, continued Levothyroxine 200 mcg daily 12.GERD Pantoprazole daily 1. Pulmonary emboli, present on admission. Active -CT angio chest revealed heterogeneous filling defects predominantly within the right upper and middle bladder lobes within the tertiary branches of the pulmonary artery most consistent with pulmonary emboli. -Continue Heparin drip.will consider initiation of oral Ac once plan for lung mass biopsy is discussed with IR - likely provoked one by new diagnosis of lung mass 1. Pulmonary emboli, present on admission. Active 2. Clostridium difficile, present on admission. Active 3. Iron deficiency normocytic anemia, chronic, present on admission 4. Hypokalemia, present on admission. Resolved 5. Elevated troponin, present on admission. Presumed stable 6. CHF without exacerbation, present on admission. Improved 7. COPD with out exacerbation, present on admission. Improved 8. Right upper lobe lung mass, present on admission. Active 9. Hypercalcemia, present on admission. Active 10. Anemia, chronic, present on admission. Active 11.Hypothyroidism 12.Teresita Stinson DO Nov 24, 2016 15:34
--- NOTE | 2016-11-24 15:55 | DRSVH ---
PROCEDURE: CT CHEST WITHOUT CONTRAST ([id number]) INDICATIONS: inc SOB, abl CXR, PE recent TECHNIQUE: Noncontrast 5 mm thick sections acquired from the pulmonary apices to the posterior costophrenic angl es. 7 mm thick coronal and sagittal MIP reformats were then acquired. For radiation dose reduction, the following was used: automated exposure control, adjustment of mA and/or kV according to patient size. COMPARISON: [facility], CR, XR CHEST 1VW (PORTABLE), 11/24/2016, 12:08. [facility], CT, CT ANGIO CHEST PE, 11/05/2016, 15:50. FINDINGS: Image quality: Excellent. Lungs and pleura: Mild bilateral pleural effusions, right greater than left. There are patchy areas o f pulmonary opacity within the lungs bilaterally. All these were present on prior exam dated 11/05/16, they are overall more prominent in size and number. Mediastinum: Heart size is normal. No pericardial effusion. There has been interval development of mediastinal adenopathy. There is an aorticopulmonary window lymph node identified, measuring 16 mm in short axis. Numerous additional enlarged lymph nodes are also present within the mediastinum. Thorac ic aorta and central pulmonary arteries are normal in size. Esophagus is normal in caliber. Large hi atal hernia. Bones and chest wall: No suspicious bony lesions. No vertebral body compression fractures. No axil chris or supraclavicular adenopathy by size criteria. Thyroid gland is not fully visualized. Abdomen: Visualized upper abdominal solid organs and bowel loops appear normal in the absence of con trast. IMPRESSION: 1. Mild bilateral pleural effusion, slightly increased compared to prior exam. 2. Multiple areas of bilateral pulmonary opacities, increased in size and number compared to prior ex am. Findings are concerning for worsening infection/inflammation include multifocal pneumonia. Recomm end interval followup after proper therapy to document resolution and exclude presence of underlying mass lesion. 3. Mediastinal adenopathy, possibly reactionary in nature. Dictated by: Fannie Tabares M.D. on 11/24/2016 at 15:51 Approved by: Fannie Tabares M.D. on 11/24/2016 at 15:53
[2016-11-24 16:04] VITALS: BP 151/69; PULSE 58; RESP 14; O2SAT 93
[2016-11-24 16:38] VITALS: BP 161/96; PULSE 70; RESP 18; O2SAT 95
[2016-11-24 16:54] VITALS: PULSE 71
[2016-11-24] MEDS ORDERED: Furosemide 10 mg/mL 4 mL Inj IVPUSH ONE (17:10)
[2016-11-24] MEDS: Ascorbic Acid 500 mg Tablet PO SCH ×2 (17:20→19:00)
--- NOTE | 2016-11-24 17:44 | PCM.PHAPRO ---
Progress Date of Service: Nov 24, 2016 Requesting Provider: Teresita Schilling DO Chest pain and shortness of breath WARFARIN DOSING INR GOAL 2-3 Will continue home warfarin dose of 10mg [facility] Nov 24, 2016 17:44
[2016-11-24] MEDS: Sertraline 20 mg/mL Liq PO SCH ×2 (17:50→20:00)
--- NOTE | 2016-11-24 18:56 | NUR ---
Admission female patient received from ER to room 2000 at about 1630. pt alert and oriented. Pt with left arm IV infusing potassium with NS for comfort of PIV site. Pt assisted to slide from gurney to bed. maki placed per md order. call light in reach and poc reviewed with patient.
[2016-11-24 19:58] VITALS: BP 154/92; PULSE 69; RESP 22; O2SAT 94
[2016-11-24] MEDS: Ondansetron 2 mg/mL 2 mL Inj IVPUSH PRN (20:17)
[2016-11-24] MEDS: ALPRAZolam 0.5 mg Tablet PO SCH (20:19)
[2016-11-24] MEDS: Vancomycin 125 mg Oral Capsule PO SCH (20:20)
[2016-11-25] VITALS (8 sets, daily range): BP systolic 155–177; BP diastolic 83–100; PULSE 65–84; RESP 18–24; O2SAT 91–97
[2016-11-25] MEDS ORDERED: Albuterol 1.25 mg/3 mL Inhalation Solution NEB PRN (02:00)
[2016-11-25 03:00] LABS: BASOPHILS % (AUTO) 0.6 % (0-3); MONOCYTES % (AUTO) 14.9 % (4-12); Mean Corpuscular Hemoglobin 28.3 pg (27.0-35.0); Mean Corpuscular Volume 92.1 fL (81-100); NEUTROPHILS % (AUTO) 64.3 % (40-74); Platelet Count 186 bil/L (150-400)
[2016-11-25 03:35] LABS: Magnesium 1.4 mg/dL (1.6-2.6)
[2016-11-25] MEDS: ALPRAZolam 0.5 mg Tablet PO PRN (03:45)
--- NOTE | 2016-11-25 05:27 | NUR ---
Pain/Respiratory/anxiety/Patient concerns Pt c/o pain, mostly in chest and shoulders, 7-04/07. Pt had 25mcg Fentanyl patch applied on previous shift as well as 5mg Oxycodone scheduled Q6 and only somewhat effective. MD notified and orders for another 25mcg Fentanyl were given. Pt also c/o increased anxiety as well. Pt has Alprazolam .5 scheduled TID and stated that she take that Q4 at home. Orders for PRN .5mg Alprazolam given. Administered Fentanyl patch as well as PRN Alprazolam and effective. Pt able to rest more comfortably and sleep. Pt also c/o increasing SOB replaced NC with oxymask and increased O2 to 5L as pt SpO2 was 88%. At reassessment SpO2 95% and pt resting in bed. VSS and Tele SR. Pt also requesting that she would like to be placed on hospice as she no longer wants to live how she is living.
[2016-11-25] MEDS ORDERED: Potassium Chloride Oral 20 mEq SR Tab(K 3 - 3.7 & Creat < 2) PO ONE (06:40)
[2016-11-25] MEDS ORDERED: Magnesium Sulf 2 Gm/50mL Water 2 GM in IV Premix 1 EACH IV ONE (07:30)
--- NOTE | 2016-11-25 08:26 | PCM.ADCARE ---
Advance Care Planning Note Purpose of Encounter: Goals of care Parties in Attendance: Patient, Resident physician Dr. Teresita Schilling, Resident physician Dr. Severino Murray, and myself Decisional Capacity: Fully decisional Subjective: Patient was found sitting up in bed, fatigued, mildly short of breath, suffering from usual chronic pain, but otherwise free of acute complaint. Objective: Kayy No is a pleasant 71-year-old lady with multiple chronic medical conditions and possible underlying malignancy. The last 6 months have been notable for multiple hospital admissions in the setting of declining health, most notable for short-term memory loss, physical deconditioning, worsening chronic pain, and horrible fatigue. She presented today with electrolyte disturbances in renal failure, severe fatigue, and overall failure to thrive. Please see today's H&P (11/24/2016), performed by Dr. Schilling, for further details. Goals of Care Determinations: Patient, residence, and I conducted an extended conversation regarding patient' s recent decline in health and her desire to discuss and initiate end-of-life planning and care. The patient reported that she simply does not have the will to fight these chronic conditions and finds the decline in her quality of life to be an acceptable. Plan: 1. Palliative Care consultation on 11/26/2016 to discuss goals in end-of-life care. 2. Hospice informational meeting prior to discharge. CODE STATUS: DO NOT RESUSCITATE/DO NOT INTUBATE Time Spent Adv.Care Planning: Greater than 15 minutes Adv. Care Plan Documenation: No changes to documentation today Burt Pearl MD Nov 25, 2016 08:26
[2016-11-25 08:58] LABS: INR 1.36 ratio
[2016-11-25] MEDS: ALPRAZolam 0.5 mg Tablet PO SCH ×3 (10:07→22:17)
[2016-11-25] MEDS: Vancomycin 125 mg Oral Capsule PO SCH ×2 (10:10→22:17)
[2016-11-25] MEDS: Ondansetron 2 mg/mL 2 mL Inj IVPUSH PRN ×2 (10:19→22:16)
[2016-11-25 14:34] LABS: Magnesium 2.1 mg/dL (1.6-2.6)
[2016-11-25] MEDS ORDERED: Furosemide 10 mg/mL 4 mL Inj IVPUSH ONE (15:55)
--- NOTE | 2016-11-25 16:00 | PCM.PNMED ---
Subjective Date of Service Nov 25, 2016 Subjective Patient is a 71-year-old female with congestive heart failure, coronary artery disease, hypertension, asthma, atrial fibrillation, anticoagulated on warfarin, chronic obstructive pulmonary disease, recent Clostridium difficile infection presenting with worsening chest pain and shortness of breath following her discharge 10 days ago. Patient admitted for treatment and management of anemia, severe hypokalemia and acute kidney injury. Hospital day #2. No overnight events. The patient reports mild abdominal pain just under her bottom ribs, otherwise is without other complaints. Exam Vital Signs Vital Sign - Last Date Time Temp Pulse Resp B/P Pulse Ox O2 Delivery O2 Flow Rate FiO2 11/25/16 08:53 75 11/25/16 07:40 36.4 20 177/96 93 OxyMask 6.00 Intake and Output 11/24/16 11/24/16 11/25/16 Cumulative From/Thru 15:00 23:00 07:00 11/24/16 12:10 - 11/25/16 06:59 Intake Total 230 ml 2023 ml 2253 ml Output Total 150 ml 2000 ml 2150 ml Balance 80 ml 23 ml 103 ml Intake Oral 0 ml 500 ml 500 ml IV Total 230 ml 1523 ml 1753 ml Output Urine Total 150 ml 2000 ml 2150 ml Exam General: Chronically appearing female laying in bed. No acute distress. Well developed. Appropriately interactive. HEENT: normocephalic, autramatic, EOMI. Neck supple. Oxymask in place Lungs: Mild crackles bilaterally. No use of accessory muscles Heart: Regular rate and rhythm. Soft II/ systolic murmur left upper sternal boarder Abdomen: Soft. Mild tenderness to palpation lower abdomen. Bowel sounds present. Lower extremities: Pitting edema distal to knees bilaterally Neurologic: Grossly neurologically intact Psychiatric: Appropriate mood and affect IVs and Medications Medications Reviewed: Medications were reviewed in detail Lab and Diagnostics Result Diagram: 11/25/16 0230 11/25/16 1319 Cardiac Echo Impressions Echocardiogram 10/2016: There is mild concentric left ventricular hypertrophy. Left ventricular systolic function is borderline reduced. Left ventricular ejection fraction is estimated to be 50%. There has been no significant change since the previous study. There is hypokinesis of the basal inferior and inferolateral wall. Assessment & Plan Patient is a 71-year-old female with congestive heart failure, coronary artery disease, hypertension, asthma, atrial fibrillation, anticoagulated on warfarin, chronic obstructive pulmonary disease, recent Clostridium difficile infection presenting with worsening chest pain and shortness of breath following her discharge 10 days ago. Patient admitted for treatment and management of anemia, severe hypokalemia and acute kidney injury. Hospital day 2. 1.Suspected CHF exacerbation, present on admission. Active -Chest x-ray findings suggestive of pulmonary edema and effusion -Elevated Pro-BMP with weight gain of approximately 12 pounds since discharge -ECHO done this month revealed mild left ventricular hypertrophy, ejection fraction 50% and hypokinesis of the basal inferior and inferolateral wall -Lasix 40mg IV one time. Reassess fluid status tomorrow and consider restarting PO Lasix -Continue to monitor 2. Acute on chronic kidney injury, present on admission. Active -Most likely due to dehydration, use of TIANNA-inhibitor, congestion -Will hold lisinopril 3. Hypokalemia, acute. Present on admission. Resolved -Most likely due to home Lasix without sufficient standard replacement of potassium, use of beta-raina -Potassium-magnesium replacement protocol in place -Continue to monitor 4. Hypomagnesemia, acute. Present on admission. Resolved -Potassium-magnesium replacement protocol in place -Repeat magnesium 8 pm 5. Hypercalcemia, chronic. Present on admission. Active -Calcium has been elevated during previous hospitalization as well. PTH and Vitamin D normal during last admission -Possibly related to lung nodule, though patient declined further work up (IR biopsy) during last admission -Continue to monitor 6. Subtherapeutic INR, present on admission. Active -INR 1.44 on admission, patient is on warfarin, 10 mg daily at home -Warfarin per pharmacy -Continue to monitor with daily INR 7. Iron deficiency anemia, chronic. Present on admission. Active -Most likely due to iron deficiency, chronic disease -Hemoglobin and hematocrit of 7.7 and 25.3 (7.9 and 25.4 on discharge 10 days ago) -Ferrous sulfate 325 mg twice a day and vitamin C 500 mg daily -Continue to monitor 8. Possible COPD exacerbation, present on admission. Active -Continue home albuterol inhaler, Brovana, Budesonide -Supplemental O2 as needed -Consider starting steroids if no improvement -No evidence of infection: patient is afebrile, no leukocytosis 9. Right upper lobe lung mass, present on admission. Active -CT angio chest revealed marked interval increase in size of previously identified sub-centimeters right upper lobe nodule, concerning for neoplastic disease. In addition, the lungs demonstrate interval development of bilateral pleural effusions as well as ill-defined areas of nodular coarsening. The latter could be related to areas of edema or poorly visualized areas of nodularity partially obscured by groundglass opacities and effusions. -Patient declined further work up (IR biopsy) during last admission 10.Recent clostridium difficile infection. Presumed stable -Patient was discharged on a long course of oral vancomycin -Continue vancomycin 125mg twice a day (for the next 2 weeks) 11. Hypothyroidism, chronic. Presumed stable -Continue levothyroxine 200 mcg daily 12. Gastroesophageal reflux disease, chronic. Presumed stable -Famotidine, 20 mg twice a day Disposition: Patient to have Palliative Care meeting on 11/26/2016 to discuss goals of care and hospice. GI Prophylaxis: Proton Pump Inhibitor VTE Prophylaxis: Other (Warfarin per pharmacy) Resuscitation Status: DNR/DNI:Do Not Resuscitate/Intubate Attending Statement The patient was seen and examined together with Dr. Lubin on 11/25/2016 and I agree with the history, exam and plan as outlined in the note above. . Burak Lubin DO Nov 25, 2016 16:00 Burt Pearl MD November 26, 2016 07:34
--- NOTE | 2016-11-25 16:17 | NUR ---
Social Work: Brief Note Pt is a 71 y/o female admitted for chest pain, PE. Pt's PCP is Dr Galan, pt's insurance is Medicare with [employer] supp. EMR reviewed. Readmit score is 4, high. Pt has hx at [facility]. Per H&P pt has 2-10 alcoholic drinks per day. MD states in rounds Palliative will meet with pt and family on 11/26. OPTICAL ADVISOR will complete assessment at a later time. [facility] Kurtz
--- NOTE | 2016-11-25 17:41 | PCM.PHAPRO ---
Progress Date of Service: Nov 25, 2016 Requesting Provider: Teresita Schilling DO Chest pain and shortness of breath inr goal 2-3 will continue home dose of 10mg warfarin Lb Downs [facility] Nov 25, 2016 17:41
[2016-11-26] VITALS (9 sets, daily range): BP systolic 150–175; BP diastolic 86–102; PULSE 65–83; RESP 12–23; O2SAT 91–96
[2016-11-26 03:10] LABS: BASOPHILS % (AUTO) 0.7 % (0-3); MONOCYTES % (AUTO) 16.7 % (4-12); Mean Corpuscular Hemoglobin 28.7 pg (27.0-35.0); Mean Corpuscular Volume 94.7 fL (81-100); NEUTROPHILS % (AUTO) 58.5 % (40-74); Platelet Count 201 bil/L (150-400)
[2016-11-26 03:33] LABS: INR 1.28 ratio
[2016-11-26 03:37] LABS: Magnesium 1.9 mg/dL (1.6-2.6)
[2016-11-26] MEDS: ALPRAZolam 0.5 mg Tablet PO PRN ×2 (04:56→19:32)
--- NOTE | 2016-11-26 06:00 | NUR ---
Rest/Anxiety/Respiratory Pt was restless and anxious a few times during the night and received Xanax which seemed to provide the pt some relief. Pt was put on a continuous pulse ox during the shift due to the pain medications that the pt was receiving. Pt tends to pull off her supplemental O2 intermittently during the shift and quickly desats into the low 80s. When sleeping pt used 9L oxymask to ensure that SpO2 >92%.
[2016-11-26] MEDS: Vancomycin 125 mg Oral Capsule PO SCH ×2 (08:47→21:37)
[2016-11-26] MEDS: Sertraline 20 mg/mL Liq PO SCH (08:48)
[2016-11-26] MEDS: Ascorbic Acid 500 mg Tablet PO SCH (08:48)
[2016-11-26] MEDS: ALPRAZolam 0.5 mg Tablet PO SCH ×4 (10:26→21:38)
--- NOTE | 2016-11-26 12:37 | NUR ---
Palliative Care Palliative Care received verbal order from Dr Pearl 11/26/16 to assist with goals of care. Patient is a 71 year old woman with CHF, CAD, hypertension, asthma, atrial fibrillation, anticoagulated on warfarin and COPD. She was admitted 11/24/16 for care of anemia, severe hypokalemia and acute kidney injury. Kevin Oneal () [phone], Janeen (daughter) [phone] Palliative Care will have a FCTM today at 2 p.m. Hospice info visit will be today at 3:30 p.m. Georgette Rojas
--- NOTE | 2016-11-26 14:14 | PCM.PHAPRO ---
Progress Date of Service: November 26, 2016 Chest pain and shortness of breath Warfarin management per pharmacy Indication: active pulmonary embolism INR goal: 2-3 Home warfarin dose: 10 mg daily Pertinent information: - Patient was recently diagnosed with pulmonary embolism on 11/05/16. - MD is aware that patient is not on therapeutic anticoagulation at this time as patient likely to transition to hospice. Date Nov 25-Oct 27-November INR 1.44 1.36 1.28 INR change -0.08 -0.08 Warf Dose 10mg po daily 10MG XXXXX INR is subtherapeutic and trending down. Will order bolus dose tonight. Give warfarin 13 mg PO one time this evening at 1700. Recommend bridging anticoagulation if patient decides against hospice. Serial INRs have been ordered. Pharmacy to continue to monitor and dose warfarin daily. Thank you, Salma Zuniga Pharmacist Salma Zuniga November 26, 2016 14:14 Salma Zuniga November 26, 2016 14:14
--- NOTE | 2016-11-26 15:45 | NUR ---
Palliative care note FCTM D/A: Pt agrees to [facility] concept with Dr. Michaud. Phone call to pt spouse and he agrees to come in for 1400 FCTM. Meet with spouse and dtr Janeen. Pt declines to participate but does indicate verbally that she wishes to go home with [facility]W. Arranged for 1530 [facility] info visit. Lengthy conversation today with family and Dr.s Pearl and Jaswant regarding pt current condition and her expected prognosis as well as stated desire to no longer fight her many conditions. Also discussed how difficult it would be for pt to change her current usage of both tobacco and ETOH. Family is agreement to [facility] info visit. Call to Rivka at [facility] to discuss that pt is not wishing to sign consent right now as she is exhausted and irritable. Phone call to Shira choe to indicate above and that tentative plan is home with HNW. Later learn from Rivka that pt agrees to [facility]W and signs consent. Discuss with daija Dash. P: Palliative care to follow. Karolina MURDOCK, CCM
--- NOTE | 2016-11-26 16:43 | PCM.PNMED ---
Subjective Date of Service November 26, 2016 Subjective Patient is tired, reluctant to engage in conversation, however she does say she is ready for hospice and hopes her family will be present for the discussion. Exam Vital Signs Vital Sign - Last Date Time Temp Pulse Resp B/P Pulse Ox O2 Delivery O2 Flow Rate FiO2 11/26/16 08:44 37.0 73 12 158/88 92 OxyMask 6.00 Intake and Output 11/25/16 11/25/16 11/26/16 Cumulative From/Thru 15:00 23:00 07:00 11/24/16 12:10 - 11/26/16 05:50 Intake Total 440 ml 100 ml 2793 ml Output Total 2000 ml 1450 ml 5600 ml Balance -1560 ml -1350 ml -2807 ml Intake Oral 400 ml 100 ml 1000 ml IV Total 40 ml 1793 ml Output Urine Total 2000 ml 1450 ml 5600 ml # Bowel Movements 2 2 Exam General: Chronically ill appearing female laying in bed. No acute distress. Well developed. HEENT: normocephalic, autramatic, EOMI. Neck supple. Oxymask in place Lungs: Mild crackles bilaterally. No use of accessory muscles Heart: Regular rate and rhythm. Soft II/ systolic murmur left upper sternal boarder Abdomen: Soft. Mild tenderness to palpation lower abdomen. Bowel sounds present. Lower extremities: Pitting edema distal to knees bilaterally Neurologic: Grossly neurologically intact Psychiatric: Depressed, almost no affect IVs and Medications Medications Reviewed: Medications were reviewed in detail Lab and Diagnostics Result Diagram: 11/26/16 0250 11/26/16 0250 Cardiac Echo Impressions Echocardiogram 10/2016: There is mild concentric left ventricular hypertrophy. Left ventricular systolic function is borderline reduced. Left ventricular ejection fraction is estimated to be 50%. There has been no significant change since the previous study. There is hypokinesis of the basal inferior and inferolateral wall. Assessment & Plan Patient is a 71-year-old female with congestive heart failure, coronary artery disease, hypertension, asthma, atrial fibrillation, anticoagulated on warfarin, chronic obstructive pulmonary disease, recent Clostridium difficile infection presenting with worsening chest pain and shortness of breath following her discharge 10 days ago. Patient admitted for treatment and management of anemia, severe hypokalemia and acute kidney injury. Hospital day 2. 1.Suspected CHF exacerbation, present on admission. Active -Chest x-ray findings suggestive of pulmonary edema and effusion -Elevated Pro-BMP with weight gain of approximately 12 pounds since discharge -ECHO done this month revealed mild left ventricular hypertrophy, ejection fraction 50% and hypokinesis of the basal inferior and inferolateral wall -change in diuretics today: Spironolactone 100mg PO daily and Lasix 40mg PO BID. -Continue to monitor -Patient was hospitalized from 09/13-09/17/16 with GA and worsening LV function, seen by Dr Jacobs, but did not follow up with him after leaving the hospital. 2. Acute on chronic kidney injury, present on admission. Improving, Cr down to1.58 -Most likely due to dehydration, use of TIANNA-inhibitor, congestion -Will hold lisinopril 3. Hypokalemia, acute. Present on admission. Resolved -Most likely due to home Lasix without sufficient standard replacement of potassium, use of beta-raina -Potassium-magnesium replacement protocol in place -Continue to monitor 4. Hypomagnesemia, acute. Present on admission. Resolved -Potassium-magnesium replacement protocol in place -Repeat magnesium 8 pm 5. Hypercalcemia, chronic. Present on admission. Active -Calcium has been elevated during previous hospitalization as well. PTH and Vitamin D normal during last admission -Possibly related to lung nodule, though patient declined further work up (IR biopsy) during last admission -Continue to monitor 6. Subtherapeutic INR, present on admission. Active -INR 1.44 on admission, patient is on warfarin, 10 mg daily at home -Warfarin per pharmacy -Continue to monitor with daily INR 7. Iron deficiency anemia, chronic. Present on admission. Active -Most likely due to iron deficiency, chronic disease -Hemoglobin and hematocrit of 7.7 and 25.3 (7.9 and 25.4 on discharge 10 days ago) -Ferrous sulfate 325 mg twice a day and vitamin C 500 mg daily -Continue to monitor 8. Possible COPD exacerbation, present on admission. Active -Continue home albuterol inhaler, Brovana, Budesonide -Supplemental O2 as needed -Consider starting steroids if no improvement -No evidence of infection: patient is afebrile, no leukocytosis 9. Right upper lobe lung mass, present on admission. Active -CT angio chest revealed marked interval increase in size of previously identified sub-centimeters right upper lobe nodule, concerning for neoplastic disease. In addition, the lungs demonstrate interval development of bilateral pleural effusions as well as ill-defined areas of nodular coarsening. The latter could be related to areas of edema or poorly visualized areas of nodularity partially obscured by groundglass opacities and effusions. -Patient declined further work up (IR biopsy) during last admission 10.Recent clostridium difficile infection. Presumed stable -Patient was discharged on a long course of oral vancomycin -Continue vancomycin 125mg twice a day (for the next 2 weeks) 11. Hypothyroidism, chronic. Presumed stable -Continue levothyroxine 200 mcg daily 12. Gastroesophageal reflux disease, chronic. Presumed stable -Famotidine, 20 mg twice a day Disposition: Patient had Palliative Care meeting on 11/26/2016 to discuss goals of care, does not involve herself in the discussion, but finally declares she wants to hear about hospice. The hospice meeting was to take place later the same day. Pain Evaluation: Adequate Pain Control GI Prophylaxis: Proton Pump Inhibitor VTE Prophylaxis: Other (Warfarin per pharmacy) Resuscitation Status: DNR/DNI:Do Not Resuscitate/Intubate Attending Statement The patient was seen and examined together with Dr. Lo on 11/26/2016 and I agree with the history, exam and plan as outlined in the note above. . Alexi Lo DO November 26, 2016 16:43 Burt Pearl MD November 26, 2016 17:49
[2016-11-26] MEDS ORDERED: WARFARIN PO ONE ×2 (17:00)
--- NOTE | 2016-11-26 17:26 | PCM.CONPAL ---
Date of Service November 26, 2016 Date of Hospital Admission: Nov 24, 2016 at 15:25 Date of Palliative Consult: November 26, 2016 Requesting Provider: Teresita Schilling DO Reason Palliative Care Consult: Pain, Goals of Care Discussion, Hospice Referral & Discussion Hospital Unit @time of consult: Progressive Care Palliative Care Recommendation Summary of palliative recommendations: -Symptom management (Pain/other) Dyspnea-suspect multicomponent with recent PE's, COPD, CHF-biventricular with severe MR and ischemic papillary muscle dysfxn. Chest pain- doubt anginal based on duration. Has increasing opacities on CT and daughter raised ? re malignancy in half-way smoker--as yet not identified. No bone or spinal etiology identified. Patient on fentanyl patch which will be decreased due to sedation. Depression and alcohol overuse disorder-Patient has no interest in addressing this. Diarrhea- recent Cdiff with negative stool this admit. Still on antibiotic txmt -DPOA/Advanced Directives/POLST-DNR//DNI and DPOAHC, completed POLST last admission -Family/emotional support-Significant for having family support but SUDS makes it difficult. Family thinks Hospice would be reasonable approach. Pt initially refuses to engage but then agreed with hospice info visit. Hopefully addnal support at home may be able to make inroads on depression and dependence. Additional Medical Diagnoses with primary management by Hospitalist team include : HTN COPD CHF Anticoag-suggest this be continued. Problems: End of Life Preferences DNR/DNI Disposition Hospice to be engaged on discharge Resuscitation Status Resuscitation Status: DNR/DNI:Do Not Resuscitate/Intubate POLST Updates/Changes Previous POLST?: Yes Artificially Admin Nutrition: No Artifical Nutrition by Tube POLST Discussed with: Patient POLST Review Outcome: No Change . Symptom management: Depression, Drowsiness/sleepiness, Dyspnea, Pain Pt History History of Present Illness Kayy No is a 71 year old female anticoagulated on warfarin with a history of congestive heart failure, chronic obstructive pulmonary disease, atrial fibrillation, coronary artery disease, hyperlipidemia, and hypertension presents [facility] Emergency Department accompanied by her complaining of shortness of breath and chest pain since being released from the hospital 10 days ago, (she was hospitalized from 11/05/16 to 11/10/16 for treatment and management of pulmonary emboly and hypokalemia) dramatically worsening over the past three days with dyspnea with minimal exertion. Patient was admitted recently for similar symptoms and diagnosed with multiple pulmonary emboli , worsening lung nodule, and chronic obstructive pulmonary disease. She does not recall an exertional component to her chest pain. Pain is described as "tightness" and rated as moderate in severity currently, though slightly more severe at worst. Associated symptoms include nausea, and chills. Patient denies radiation of pain, increased lower extremity swelling, and change in cough. Symptoms have prevented her from sleeping. She is on home oxygen. Her INR was 1.8 yesterday. In the emergency room her vital signs were: temperature 36.6, pulse 63, respiratory rate 16, blood pressure 167/81, pulse oximetry 95% on 3 liters of nasal cannula. Her white blood count was 3.8, hemoglobin 7.7, hematocrit 25.3, platelet 188. Sodium 141, potassium 2.1, chloride 82, carbon dioxide 49, blood urea nitrogen 17, creatinine 1,65, blood glucose 90. Calcium 11.8, magnesium 1.4 , pro-BNP 1662, troponin ,0.010. Lactic acid 1.1. INR 1.44. Electrocardiogram showed sinus rhythm and LVH with secondary repolarization abnormality, similar to electrocardiogram done on 11/08/16. Chest x-ray revealed pleural effusions, edema and bibasilar opacities. Chest CT without contrast taken and results are pending. She was given potassium chloride, 40 meq orally and enoxaparin sodium, 90 mg subcutaneously. Patient's primary care provider: Dr. Galan; Banquet Supervisor: Dr. Taveras PALLIATIVE CARE CONSULTATION NOTE Requesting provider Dr Rome Dotson Goals of Care 71-year-old patient well known to palliative care service due to multiple hospitalizations. She was seen by palliative care during her hospitalization approximately 3 weeks ago with diagnosis at that time of bilateral pulmonary emboli. She has history of significant COPD CHF as well as severe MR with EF of 40-45%. Papillary dysfunction due to acute inferior wall WA thought to be the cause of worsening CHF back in August. She was hospitalized in July with a diagnosis of C. difficile. She has had problems with intractable diarrhea for well over a year. She has been seen locally as well as in [place] but not always with consistent follow-up in evaluation of her diarrhea. She was hospitalized in August due to CHF/pneumonia, October for pulmonary emboli home for 2 weeks and now back at due to increasing edema and shortness of breath. She states she has chest pain across her chest and across her back which is been constant and 4 months. She has chronic shortness of breath she continues to smoke. She drinks heavily usually 4-5 alcoholic beverages a night preferring vodka. Her daughter states that she was off alcohol for a few weeks after getting out of [facility] after her hospitalization in August. She states she actually did fairly well during that time-but then began to crave alcohol. She has a long history of significant alcohol intake but most significantly over the past year. She is told her daughter that it "helps her stomach". The patient mentioned that she was tired of hospitalizations, and tired of being made to see medical providers and seek help. She has been refusing care at home including showers even at the insistence of her daughter who was there to help. She usually is reliant on her . Her states that her medications have been changed so many times he has no idea what she is on. He also notes that she will take her medication for a few days and then decided she does not want any for a few days. Her daughter states that she sleeps through most of the day and night and is only up to go to the bathroom or have something to eat. She continues to have vycwratc-3-1 BM daily, no note of blood and none at night. She has chronic SOB-rest but mostly with walking. Past Medical History Significant PMH Noted: PMH Moderate-sever mitral valve regurgitation, cardiac cath 02/2014 with normal coronaries. Hiatal hernia Cardiomegaly Hypothyroidism Reardon Colitis 05/2016 Diverticulosis Chronic insomnia Colon polyps Pneumonia Depression Anxiety COPD Congestive heart failure Coronary artery disease GERD Hyperlipidemia Hypertension Chronic smoker-past 1 PPD, now less ETOH 4-6/d Surgical History Right knee surgery in 1966 Cardiac cath 2011, 2013 Hysterectomy in 2004 Reports: Cholecystectomy Family History Emphysema (father) alcoholism Social History Social Support: , 2 daughters- Oseas and Janeen Living Situation: lives with her Responsive Patient Symptoms Tiredness/Fatigue: Moderate Nausea: Mild Depression: Moderate Anxiety: Mild Drowsiness/Sleepiness: Moderate Anorexia: Moderate Shortness of Breath: Moderate Other CP- nonexertional, constant with radiation across her back X 1-2 mos sleeps well--day and night diarrhea- 4-6 BM / d Anorexia, no dysphagia Denies orthopnea +Edema weight gain of 14# over past 2 weeks per daughter. Palliative Performance Scale PPS Ambulation: Reduced PPS Activity: Unable to do most activity PPS Self-Care: Occasional assistance necessary PPS Intake: Normal or reduced PPS Conscious Level: Full Performance Scale: 70% Allergy Allergies Reviewed: Yes Medications Current Medications: Current Medications Enoxaparin Sodium 40 mg DAILY SUBQ; Start 11/25/16 at 08:30; Stop 11/25/16 at 08 :30; Status DC Pharmacy Consult 1 ea DAILY@17 XX; Start 11/25/16 at 17:00 Vancomycin HCl 125 mg BID PO Last administered on 11/26/16 08:47; Admin Dose 125 MG; Start 11/24/16 at 20:30 Ferrous Sulfate 325 mg BID PO Last administered on 11/26/16 08:47; Admin Dose 325 MG; Start 11/24/16 at 20:30 Alprazolam 0.5 mg TID PO Last administered on 11/26/16 15:49; Admin Dose 0.5 MG ; Start 11/24/16 at 20:30 Fentanyl 1 patch Q3D TOPICAL Last administered on 11/24/16 18:51; Admin Dose 1 PATCH; Start 11/24/16 at 17:45; Stop 11/25/16 at 02:58; Status DC Oxycodone HCl 5 mg Q6 PO Last administered on 11/26/16 15:49; Admin Dose 5 MG; Start 11/24/16 at 20:30 Aspirin 81 mg DAILY PO Last administered on 11/26/16 08:47; Admin Dose 81 MG; Start 11/24/16 at 17:50 Carvedilol 6.25 mg BIDWM PO Last administered on 11/26/16 08:48; Admin Dose 6.25 MG; Start 11/25/16 at 08:00 Sertraline HCl 100 mg DAILY PO Last administered on 11/26/16 08:48; Admin Dose 100 MG; Start 11/24/16 at 17:50; Stop 11/26/16 at 15:11; Status DC Spironolactone 25 mg DAILY PO Last administered on 11/26/16 08:48; Admin Dose 25 MG; Start 11/24/16 at 17:50; Stop 11/26/16 at 16:24; Status DC Albuterol 1.25 mg Q4H PRN NEB Last administered on 11/25/16 02:37; Admin Dose 1.25 MG; Start 11/25/16 at 02:00 Alprazolam 0.5 mg Q6H PRN PO Last administered on 11/26/16 04:56; Admin Dose 0.5 MG; Start 11/25/16 at 03:00 Fentanyl 1 patch Q3D TOPICAL; Start 11/27/16 at 18:00 Famotidine 20 mg DAILY PO Last administered on 11/26/16 08:48; Admin Dose 20 MG ; Start 11/26/16 at 08:30 Sertraline HCl 100 mg DAILY PO; Start 11/27/16 at 08:30 Spironolactone 100 mg DAILY PO; Start 11/26/16 at 16:25 Furosemide 40 mg BID PO; Start 11/26/16 at 20:30 Scheduled Arformoterol Tartrate (Brovana) 15 Mcg/2 Ml Vial.neb 15 MCG IH DAILY Aspirin Chew (Aspirin Chew) 81 Mg Chew 81 MG PO DAILY Budesonide (Budesonide) 1 Mg/2 Ml Ampul.neb 1 MG IH BID Carvedilol (Carvedilol) 6.25 Mg Tablet 6.25 MG PO BIDWM Furosemide (Furosemide) 40 Mg Tablet 20 MG PO BID Levothyroxine (Levothyroxine) 200 Mcg Tablet 200 MCG PO QAM Lisinopril (Lisinopril) 40 Mg Tablet 40 MG PO BID Magnesium (Magnesium) 200 Mg Tablet 200 MG PO BIDWM Omeprazole (Omeprazole) 40 Mg Capsule.dr 40 MG PO QAM Potassium Chloride (Potassium Chloride) 10 Meq Capsule.er 10 MEQ PO BIDWM TAKE WITH FOOD Vit#96/Ferrous Fum/FA ( Tablet) 1 Each Tablet 1 TABLET PO DAILY Ranitidine (Ranitidine) 300 Mg Tablet 300 MG PO HS Sertraline HCl (Sertraline) 20 Mg/1 Ml Oral.conc 100 MG PO QAM Spironolactone (Aldactone) 25 Mg Tablet 25 MG PO DAILY Trazodone (Trazodone) 100 Mg Tablet 100 MG PO HS Triamcinolone Acetonide (Nasacort) 10.8 Ml [place] 2 SPRAYS NS DAILY Vancomycin (Vancomycin) 125 Mg Capsule 125 MG PO ASDIRECTED Warfarin Sodium (Warfarin Sodium) 10 Mg Tablet 10 MG PO DAILY Scheduled PRN Albuterol Sulfate (Ventolin HFA Inhaler) 200 Puff/18 Gm Inhaler 2 PUFF INH Q4H PRN PRN For Wheezing Alprazolam (Alprazolam) 0.5 Mg Tablet 0.5 MG PO BID PRN PRN For Anxiety Ondansetron ODT (Ondansetron ODT) 4 Mg Tab.rapdis 4 MG PO Q8H PRN PRN For Nausea /Vomiting Oxycodone (Roxicodone) 5 Mg Tablet 5 MG PO Q6H PRN PRN For Pain Objective Findings Exam Vital Sign - Last Date Time Temp Pulse Resp B/P Pulse Ox O2 Delivery O2 Flow Rate FiO2 11/26/16 16:48 36.5 69 22 153/89 95 Nasal Cannula 6.00 Intake and Output 11/25/16 11/25/16 11/26/16 Cumulative From/Thru 15:00 23:00 07:00 11/24/16 12:10 - 11/26/16 05:50 Intake Total 440 ml 100 ml 2793 ml Output Total 2000 ml 1450 ml 5600 ml Balance -1560 ml -1350 ml -2807 ml Intake Oral 400 ml 100 ml 1000 ml IV Total 40 ml 1793 ml Output Urine Total 2000 ml 1450 ml 5600 ml # Bowel Movements 2 2 Objective initially engaged in conversation and giving hx. Later in afternoon difficult to arouse but appropriate when she is aroused General: Alert/Oriented x3 HEENT: PERRLA, EOMI, Scleral Anicteric, Mucous Membranes Dry (pale), Other (NC in place) Heart: Dysrhythmia Present Lungs: Clear to Auscultation Abdomen: Soft Neuro: Cranial Nerve 3-12 Intact Extremities: Edema (1+) Lab/Diagnostics Lab and Imaging results reviewed in detail in EMR. K started at 2.1--improved to 3.5. Cr- 1.58, INR 1.28 Stool neg for Cdiff Patient/Family Conference Members Present Family Members Present Initially with patient only, later conference with her daughter-Janeen and and patient Medical Team Members Present? Melissa VILLA[facility], Karolina Luna PAIN MANAGEMENT NURSE PRACTITIONER PC Dr. Pearl Discussion/Goals of Care Discussion FAMILY UNDERSTANDING OF DISEASE: Patient at first acknowledged her severity of illness but later in day- sleeping/snoring through interview and discussion with her daug and . Upon being awakened she declined to participate but answered ? appropriately. She identified that she might be interested in hospice but then stated she needed to discuss it with her . When he arrived she refused to discuss any of this.She said she wanted to go home and would think about it there. Her daughter helped delineate her irritability and resistance to attempts at assistance. Initially there was denial on family part of the impact of her alcohol on her decision making but later much more acceptance of its role and duration. DISEASE PROGRESSION/EVIDENCE OF DECLINE: Daughter defines significant decline in pt over the last 6 months with short window of improvement few weeks out of SNF SYMPTOM BURDEN: Significant for patient -diarrhea, SOB, depression, alcohol and for the family-her anger, resistance, unwillingness to engage. GOALS: She wishes to go home. She wishes to not have to comeback to hospital. She had acknowledged this AM that she has no interest in decreasing or stopping her alcohol intake and that it is one of the reasons she wants discharge. HOPES/WORRIES: Time spent Total time 75 minutes; >50% face to face with patient and/or family, providing counselling regarding plans and recommendations, and in care coordination with his/her medical teams. Which included interview with pt and then family/pt, coordination with team and hospice I also spent an additional [ ] minutes counseling for advanced care planning with the patient/the patients family/the surrogate decision maker. copies to: Davin Galan MD, Deborah A MD November 26, 2016 17:26
--- NOTE | 2016-11-26 17:26 | NUR ---
Pain/Respiratory/Potassium Pt complained of back and chest pain up to "8/10" during this shift. Adequate relief provided by scheduled oxycodone and repositioning, Pt on 6L via nasal cannula for much of the day. Reported SOB with exertion. Oxygen sat 98% when respiratory therapist checked and supplemental oxygen was turned down to 4L. Pt resting comfortably Potassium was 3.3 with AM lab. MD notified and asked if they wanted it to be supplemented. No new orders for patient but will continue to monitor potassium with labs.
[2016-11-26] MEDS: Arformoterol 15 mCg/2 mL Inhalation Solution INHALATION SCH (20:46)
[2016-11-26] MEDS: Budesonide 0.5 mg/2 mL Inhalation Solution NEB SCH (20:50)
[2016-11-26] MEDS ORDERED: 0.9% Sodium Chloride 250 ML ONE (21:59)
[2016-11-27] VITALS (11 sets, daily range): BP systolic 155–174; BP diastolic 89–101; PULSE 61–74; RESP 18–22; O2SAT 92–97
[2016-11-27] MEDS ORDERED: 0.9% Sodium Chloride 250 ML ONE (01:55)
[2016-11-27] MEDS: ALPRAZolam 0.5 mg Tablet PO PRN ×3 (03:24→19:44)
--- NOTE | 2016-11-27 05:50 | NUR ---
Pain/Anxiety/Blood Pt c/o pain 7/10 at beginning of shift. Pt currently has 50mcg Fentanyl patch applied and is receiving 5mg oxycodone Q6 scheduled. Pt stated that her pain was not noticeable during 0300 assessment. @ 0300 Pt stating that her anxiety was 10/10. Pt currently taking .5 Alprazolam TID and PRN Q6. Administered PRN Alprazolam and effective, pt able to rest for remainder of shift. Pt received 2 unit PRBC's this shift and tolerated well. NO reactions noted. VSS and pt is no longer on Tele.
[2016-11-27] MEDS: Budesonide 0.5 mg/2 mL Inhalation Solution NEB SCH ×2 (07:51→20:12)
[2016-11-27] MEDS: Arformoterol 15 mCg/2 mL Inhalation Solution INHALATION SCH (07:53)
[2016-11-27] MEDS: Fluticasone 0.05% 15 Spray/2 Gm 16 Gm Nasal Spray NASAL SCH (08:12)
[2016-11-27] MEDS: ALPRAZolam 0.5 mg Tablet PO SCH (08:13)
[2016-11-27] MEDS: Ascorbic Acid 500 mg Tablet PO SCH (08:20)
[2016-11-27] MEDS: Vancomycin 125 mg Oral Capsule PO SCH ×2 (08:20→19:44)
[2016-11-27] MEDS ORDERED: Non-Formulary Medication (Warfarin Sodium 10 MG) PO SCH (08:30)
[2016-11-27 08:34] LABS: BASOPHILS % (AUTO) 0.5 % (0-3); EOSINOPHILS % (AUTO) 3.8 % (0-5); MONOCYTES % (AUTO) 17.4 % (4-12); Mean Corpuscular Hemoglobin 29.1 pg (27.0-35.0); Mean Corpuscular Volume 90.7 fL (81-100); NEUTROPHILS % (AUTO) 63.5 % (40-74); Platelet Count 215 bil/L (150-400)
[2016-11-27 08:50] LABS: INR 1.29 ratio
[2016-11-27] MEDS ORDERED: ALPRAZolam 0.5 mg Tablet PO PRN (09:05)
--- NOTE | 2016-11-27 10:14 | PCM.DIMED ---
WlalyAlexi Florentin GILLESPIE 11/27/16 1001: Discharge Instructions Date of Service November 27, 2016 Dates of Hospitalization Nov 24, 2016 at 15:25 Discharge Diagnosis Discharge Diagnosis Acute on Chronic Diastolic Heart Failure, COPD exacerbation, ARF Medication Instructions Stop Warfarin. Start Eliquis or Pradaxa. Social work will confirm which of these your insurance will cover. Test Results Laboratory Tests Test 11/26/16 17:30 11/27/16 08:15 Hemoglobin 7.0g/dL (12.0-15.6) 9.7g/dL (12.0-15.6) Hematocrit 23.7% (35.0-46.0) 30.2% (35.0-46.0) Sodium Level 139mEq/L (134-144) Potassium Level 3.6mEq/L (3.5-5.2) Chloride Level 91mEq/L (97-108) Carbon Dioxide Level 36mmol/L (18-29) Blood Urea Nitrogen 15mg/dL (8-27) Creatinine 1.38mg/dL (0.57-1.00) Estimat Glomerular Filtration Rate 54mL/min (>59) Glucose Level 101mg/dL (60-99) Calcium Level 10.4mg/dL (8.5-10.1) White Blood Count 4.2th/mm3 (3.8-10.1) Red Blood Count 3.33mil/mm3 (3.90-5.20) Mean Corpuscular Volume 90.7fL (81-100) Mean Corpuscular Hemoglobin 29.1pg (27.0-35.0) Mean Corpuscular Hemoglobin Concent 32.1% (32.0-37.0) Red Cell Distribution Width 16.3% (12.3-15.4) Platelet Count 215bil/L (150-400) Neutrophils (%) (Auto) 63.5% (40-74) Lymphocytes (%) (Auto) 14.6% (14-46) Monocytes (%) (Auto) 17.4% (4-12) Eosinophils (%) (Auto) 3.8% (0-5) Basophils (%) (Auto) 0.5% (0-3) Prothrombin Time 13.9sec (8.1-12.5) Prothromb Time International Ratio 1.29ratio Microbiology 11/24/16 Blood Culture - Preliminary, Resulted No growth at 2 days; culture examined... 11/24/16 C. difficile DNA Amplification - Final, Complete 11/24/16 Urine Culture - Final, Complete Escherichia Coli Diet Heart Healthy Activity No restrictions Call your provider Fever or Chills, Shortness of breath, Bleeding, Chest pain, Vomitting, Excessive diarrhea, Weakness (unilateral) Patient Instructions You will meet with hospice today at home. They may change your medications. Take your medications as scheduled, BUT STOP Warfarin and start either Eliquis 2.5mg PO BID or Pradaxa 150mg PO BID. Social work is looking into which will be covered by your insurance. Make an appointment this week with [facility]. Do not drink any alcohol as it will worsen all of your medical problems. Follow-up plan Patient has agreed to Hospice Care to be arranged. Follow-up Provider: Davin Galan MD Follow-up with PCP in: 1 week Burt Pearl MD 11/28/16 9140: Discharge Instructions Attending's Statement The patient was seen and examined together with Dr. Lo on 11/28/2016 and I agree with the history, exam and plan as outlined in the note above. . Alexi Lo DO November 27, 2016 10:01 Burt Pearl MD November 28, 2016 17:55
--- NOTE | 2016-11-27 10:53 | PCM.PALLBR ---
Palliative Care Recommendation Summary of palliative recommendations: 11/27/16-Pain- etiology bit unclear but now seems oversedated with her fentanyl at 50 mcg. Will decrease to 25 mcg. She has used oxycodone for BTP and has order Anemia- treated-suspect renal insuff, lab draws, chronic ds etc Dyspnea-doesn't seem to recognize when O2 off and sat in 80's. Will need home O2 Depression-now oversedated including with scheduled alprazolam-changed to PRN Anticoagulation- needs this to be continued due to acute PE's 2 weeks ago. -Symptom management (Pain/other) Dyspnea-suspect multicomponent with recent PE's, COPD, CHF-biventricular with severe MR and ischemic papillary muscle dysfxn. Chest pain- doubt anginal based on duration. 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 No bone or spinal etiology identified. Patient on fentanyl patch which will be decreased due to sedation. Depression and alcohol overuse disorder-Patient has no interest in addressing this. Diarrhea- recent Cdiff with negative stool this admit. Still on antibiotic txmt -DPOA/Advanced Directives/POLST-DNR//DNI and DPOAHC, completed POLST last admission -Family/emotional support-Significant for having family support but SUDS makes it difficult. Family thinks Hospice would be reasonable approach. Pt initially refuses to engage but then agreed with hospice info visit. Hopefully addnal support at home may be able to make inroads on depression and dependence. Additional Medical Diagnoses with primary management by Hospitalist team include : HTN COPD CHF Anticoag-suggest this be continued. Problems: End of Life Preferences DNR/DNI Goals of Care Patient wishes to go home and not return to the hospital. Disposition Hospice to be engaged on discharge Resuscitation Status Resuscitation Status: DNR/DNI:Do Not Resuscitate/Intubate POLST Updates/Changes Previous POLST?: Yes Artificially Admin Nutrition: No Artifical Nutrition by Tube POLST Discussed with: Patient POLST Review Outcome: No Change . Symptom management: Drowsiness/sleepiness, Dyspnea, Pain Total time 40 minutes; >50% face to face with patient and/or family, providing counselling regarding plans and recommendations, and in care coordination with his/her medical teams. Coordination of care med management adjustment of pain meds and decrease benzodiazepine I also spent an additional [ ] minutes counseling for advanced care planning with the patient/the patients family/the surrogate decision maker. copies to: Davin Galan MD Palliative Brief Note Date of Service November 27, 2016 . Patient seen, sitting on side of bed but very groggy.OX3 Bit irritable-does not have much patient with aide trying to assist her. Wants to go home. Had asked fo maki for diuresing-note of blood tinged urine Stands at side of bed-she states just to do that but does not attempt to walk and looks like she might fall asleep. With prompting she sits back down O: as above lungs decreased BS denise L base, fine rales mid R, poor inspiratory effort COR- still 1-2 + edema, HR standing about 110 hgb 7-transfused and now 9.2 Cr. 1.35 INR 1.28 Peyton Michaud MD November 27, 2016 10:53
[2016-11-27] MEDS ORDERED: APIX2.5T PO (10:54)
[2016-11-27] MEDS ORDERED: DABI150C PO (10:54)
[2016-11-27] MEDS: Ondansetron 2 mg/mL 2 mL Inj IVPUSH PRN ×2 (12:33→22:38)
--- NOTE | 2016-11-27 14:07 | PCM.PHAPRO ---
Progress Date of Service: November 27, 2016 Chest pain and shortness of breath Salma Zuniga November 27, 2016 14:07 INR goal: 2-3 Home warfarin dose: 10 mg daily Pertinent information: - Patient was recently diagnosed with pulmonary embolism on 11/05/16. - MD is aware that patient is not on therapeutic anticoagulation at this time as patient likely to transition to hospice. Date Nov 25-Oct 27-November INR 1.44 1.36 1.28 INR change -0.08 -0.08 Warf Dose 10mg po daily 10MG XXXXX INR is subtherapeutic and trending down. Will order bolus dose tonight. Give warfarin 13 mg PO one time this evening at 1700. Recommend bridging anticoagulation if patient decides against hospice. Serial INRs have been ordered. Pharmacy to continue to monitor and dose warfarin daily. Thank you, Salma Zuniga Pharmacist Salma Zuniga November 27, 2016 14:07
--- NOTE | 2016-11-27 16:20 | NUR ---
Social Work Note: Readiness for Discharge Data& Assessment: Per palliative care SW pt signed consents with hospice. RIANA spoke with pt and pt regarding discharge planning. RIANA also spoke with Shani from Hospice regarding equipment delivery and opening date. Pt equipment will be delivered in her home tomorrow 11/28/2016. Pt hospice opening date is Saturday11/30/2016 at this time but she is on the waiting list if sooner opening slot becomes available. RIANA offered care giving resources to pt who declined at this time. requested SW faxed Erydel prescription for cost at pt preferred pharmacy [facility] in [place]. RIANA confirmed that the cost of that prescription would be $77 for a 30 day supply. MD notified. Anticipated discharge tomorrow per MD. Pt to transport pt POV when medically ready. SW to continue to follow if any other needs arise. Plan: Per pt is getting closer to being medically ready to discharge home via POV with Hospice equipment delivery tomorrow 11/27/2016 and opening date Saturday11/30/2016. Pt and pt deny any other needs at this time. SW to continue to follow if any other needs arise. [facility]
--- NOTE | 2016-11-27 16:34 | PCM.PNMED ---
Subjective Date of Service November 27, 2016 Subjective Patient reports a little more energy, but still weak and tired. She wants to go home with hospice. Exam Vital Signs Vital Sign - Last Date Time Temp Pulse Resp B/P Pulse Ox O2 Delivery O2 Flow Rate FiO2 11/27/16 12:26 36.5 65 18 162/94 92 Room Air 11/27/16 07:51 2.00 Intake and Output 11/26/16 11/26/16 11/27/16 Cumulative From/Thru 15:00 23:00 07:00 11/24/16 12:10 - 11/27/16 06:11 Intake Total 500 ml 754 ml 4047 ml Output Total 1000 ml 6600 ml Balance -500 ml 754 ml -2553 ml Intake Oral 500 ml 1500 ml IV Total 65 ml 1858 ml Packed Cells 689 ml 689 ml Output Urine Total 1000 ml 6600 ml # Bowel Movements 0 2 Exam General: Chronically ill appearing female laying in bed. No acute distress. Well developed. HEENT: normocephalic, autramatic, EOMI. Neck supple. Oxymask in place Lungs: Mild crackles bilaterally. No use of accessory muscles Heart: Regular rate and rhythm. Soft II/ systolic murmur left upper sternal boarder Abdomen: Soft. Mild tenderness to palpation lower abdomen. Bowel sounds present. Lower extremities: Pitting edema distal to knees bilaterally Neurologic: Grossly neurologically intact Psychiatric: Depressed, almost no affect IVs and Medications Medications Reviewed: Medications were reviewed in detail Lab and Diagnostics Result Diagram: 11/27/16 0815 11/26/16 1730 Cardiac Echo Impressions Echocardiogram 10/2016: There is mild concentric left ventricular hypertrophy. Left ventricular systolic function is borderline reduced. Left ventricular ejection fraction is estimated to be 50%. There has been no significant change since the previous study. There is hypokinesis of the basal inferior and inferolateral wall. Assessment & Plan Patient is a 71-year-old female with congestive heart failure, coronary artery disease, hypertension, asthma, atrial fibrillation, anticoagulated on warfarin, chronic obstructive pulmonary disease, recent Clostridium difficile infection presenting with worsening chest pain and shortness of breath following her discharge 10 days ago. Patient admitted for treatment and management of anemia, severe hypokalemia and acute kidney injury. Hospital day 2. 1.Suspected CHF exacerbation, present on admission. Active -Chest x-ray findings suggestive of pulmonary edema and effusion -Elevated Pro-BMP with weight gain of approximately 12 pounds since discharge -ECHO done this month revealed mild left ventricular hypertrophy, ejection fraction 50% and hypokinesis of the basal inferior and inferolateral wall -change in diuretics today: Spironolactone 100mg PO daily and Lasix 40mg PO BID. -Continue to monitor -Patient was hospitalized from 09/13-09/17/16 with MA and worsening LV function, seen by Dr Jacobs, but did not follow up with him after leaving the hospital. 2. Acute on chronic kidney injury, present on admission. Improving, Cr down to1.58 -Most likely due to dehydration, use of TIANNA-inhibitor, congestion -Will hold lisinopril 3. Hypokalemia, acute. Present on admission. Resolved -Most likely due to home Lasix without sufficient standard replacement of potassium, use of beta-raina -Potassium-magnesium replacement protocol in place -Continue to monitor 4. Hypomagnesemia, acute. Present on admission. Resolved -Potassium-magnesium replacement protocol in place -Repeat magnesium 8 pm 5. Hypercalcemia, chronic. Present on admission. Active -Calcium has been elevated during previous hospitalization as well. PTH and Vitamin D normal during last admission -Possibly related to lung nodule, though patient declined further work up (IR biopsy) during last admission -Continue to monitor 6. Subtherapeutic INR, present on admission. Active -INR 1.44 on admission, patient is on warfarin, 10 mg daily at home -Warfarin per pharmacy -Continue to monitor with daily INR 7. Iron deficiency anemia, chronic. Present on admission. Active -Most likely due to iron deficiency, chronic disease -Hemoglobin and hematocrit of 7.7 and 25.3 (7.9 and 25.4 on discharge 10 days ago) -Ferrous sulfate 325 mg twice a day and vitamin C 500 mg daily -Continue to monitor 8. Possible COPD exacerbation, present on admission. Active -Continue home albuterol inhaler, Brovana, Budesonide -Supplemental O2 as needed -Consider starting steroids if no improvement -No evidence of infection: patient is afebrile, no leukocytosis 9. Right upper lobe lung mass, present on admission. Active -CT angio chest revealed marked interval increase in size of previously identified sub-centimeters right upper lobe nodule, concerning for neoplastic disease. In addition, the lungs demonstrate interval development of bilateral pleural effusions as well as ill-defined areas of nodular coarsening. The latter could be related to areas of edema or poorly visualized areas of nodularity partially obscured by groundglass opacities and effusions. -Patient declined further work up (IR biopsy) during last admission 10.Recent clostridium difficile infection. Presumed stable -Patient was discharged on a long course of oral vancomycin -Continue vancomycin 125mg twice a day (for the next 2 weeks) 11. Hypothyroidism, chronic. Presumed stable -Continue levothyroxine 200 mcg daily 12. Gastroesophageal reflux disease, chronic. Presumed stable -Famotidine, 20 mg twice a day Disposition: Patient will discharge as soon as home oxygen is in place. Hospice has been accepted but the date of their home visit is not known yet. Pain Evaluation: Adequate Pain Control GI Prophylaxis: Proton Pump Inhibitor VTE Prophylaxis: Other (Warfarin per pharmacy) Resuscitation Status: DNR/DNI:Do Not Resuscitate/Intubate Attending Statement The patient was seen and examined together with Dr. Lo on 11/27/2016 and I agree with the history, exam and plan as outlined in the note above. . Alexi Lo DO November 27, 2016 16:34 Burt Pearl MD November 28, 2016 17:55
[2016-11-28] MEDS: ALPRAZolam 0.5 mg Tablet PO PRN ×2 (01:46→10:20)
[2016-11-28 04:34] VITALS: BP 180/100; PULSE 67; RESP 20; O2SAT 92
[2016-11-28 05:03] LABS: INR 1.43 ratio
--- NOTE | 2016-11-28 06:23 | NUR ---
: Lasix given at HS per order. Pt up >10 times overnight with urinary frequency and incontinents. PRN Ativan and oxycodone givenr for pain anxiety- pt sleeping intermittently. awakes frequently to urinate. care ongoing.
[2016-11-28 08:10] VITALS: BP 169/98; PULSE 86; RESP 20; O2SAT 93
[2016-11-28] MEDS: Budesonide 0.5 mg/2 mL Inhalation Solution NEB SCH (08:16)
[2016-11-28 08:17] VITALS: PULSE 88; RESP 22; O2SAT 95
--- NOTE | 2016-11-28 08:23 | NUR ---
Social Work Note: Readiness for Discharge Data& Assessment: Shani with hospice informed SW this morning that they have a earlier opening time available for today at noon. notified if pt can be discharged by 11:00am. SW to update pt and pt family and continue to update Hospice. SW to continue to follow. Plan: Anticipated discharge home with Hospice today at 12:00am. SW to continue to follow. [facility]
[2016-11-28] MEDS: Ascorbic Acid 500 mg Tablet PO SCH (10:18)
[2016-11-28] MEDS: Vancomycin 125 mg Oral Capsule PO SCH (10:21)
[2016-11-28] MEDS: Fluticasone 0.05% 15 Spray/2 Gm 16 Gm Nasal Spray NASAL SCH (10:22)
[2016-11-28] MEDS: Ondansetron 2 mg/mL 2 mL Inj IVPUSH PRN (10:44)
--- NOTE | 2016-11-28 12:30 | NUR ---
Discharge note Patient a/o x 3, c/o gen pain 4-6/10, Fentanyl patch inplace and PRN meds given. Lungs course bilat, O 2 @ 3 L nc/oxymask sat 93%. Patient oob with sba, amb to bathroom, having freq liq stools. paged and Immodum x 1 given. IV SL removed intact. No tele. Patient and given discharge instructions, medication reconciliation, info on diagnosis, hospice and new prescriptions. All questions answered. Patient taken to the car via wheelchair with all belongings and discharged home with .
--- NOTE | 2016-11-28 13:44 | NUR ---
Social Work Note: Discharge Data& Assessment: Per pt is medically stable for discharge. Kayy No is a 71 year old female admitted on 11/24/2016 for chest pain and pulmonary embolism. Per pt is medically stable to discharge home with hospice to open services today. SW confirmed with pt that the equipment has been delivered to her home and he will be transporting pt home privately. Hospice to open between 12-1:00p.m. Hospice notified. MD, RN, pt and pt all updated and agreeable to plan. Pt and pt deny any other needs. No other discharge needs identified. Plan: Per pt is medically ready to discharge home via POV with Hospice to open between 12-1:00p.m. Pt and pt deny any other needs. No other discharge needs identified. All updated and agreeable to plan. [facility]
--- NOTE | 2016-11-28 13:47 | PCM.DC.MED ---
Discharge Summary Date of Service November 28, 2016 Dates of Hospitalization Date of Hospital Admission Nov 24, 2016 at 15:25 Date of Discharge: November 28, 2016 Providers: Admitting Physician: Burt Pearl MD Primary Care Physician: Davin Galan MD Attending Physician: Burt Pearl MD Diagnosis at Time of Discharge Diagnosis at Time of Discharge Acute on Chronic Diastolic Heart Failure, COPD exacerbation, ARF Consultations Claduia Michaud MD, Palliative Care Procedures XRay, CTs & MRIs CXR 10/2916, IMPRESSION: 1. Mild bilateral pleural effusion, slightly increased compared to prior exam. 2. Multiple areas of bilateral pulmonary opacities, increased in size and number compared to prior exam. Findings are concerning for worsening infection/ inflammation include multifocal pneumonia. Recommend interval followup after proper therapy to document resolution and exclude presence of underlying mass lesion. 3. Mediastinal adenopathy, possibly reactionary in nature. CXR 11/24/16, IMPRESSION: Increased appearance of mild pleural effusions, edema and bibasilar opacities. The latter could be environmental marketing representative of developing pneumonia versus focal atelectasis/edema. Dictated by: Fannie Tabares M.D. on 11/24/2016 at 13:28 Approved by: Fannie Tabares M.D. on 11/24/2016 at 13:28 ECG 12 Lead Sinus rhythm LVH with secondary repolarization abnormality Same as ECG 11/08/2016 Cardiac Echo Impression Echocardiogram 10/2016: There is mild concentric left ventricular hypertrophy. Left ventricular systolic function is borderline reduced. Left ventricular ejection fraction is estimated to be 50%. There has been no significant change since the previous study. There is hypokinesis of the basal inferior and inferolateral wall. Brief History Kayy No is a 71 year old female anticoagulated on warfarin with a history of congestive heart failure, chronic obstructive pulmonary disease, atrial fibrillation, coronary artery disease, hyperlipidemia, and hypertension presents [facility] Emergency Department accompanied by her complaining of shortness of breath and chest pain since being released from the hospital 10 days ago, (she was hospitalized from 11/05/16 to 11/10/16 for treatment and management of pulmonary emboly and hypokalemia) dramatically worsening over the past three days with dyspnea with minimal exertion. Patient was admitted recently for similar symptoms and diagnosed with multiple pulmonary emboli , worsening lung nodule, and chronic obstructive pulmonary disease. She does not recall an exertional component to her chest pain. Pain is described as "tightness" and rated as moderate in severity currently, though slightly more severe at worst. Associated symptoms include nausea, and chills. Patient denies radiation of pain, increased lower extremity swelling, and change in cough. Symptoms have prevented her from sleeping. She is on home oxygen. Her INR was 1.8 yesterday. In the emergency room her vital signs were: temperature 36.6, pulse 63, respiratory rate 16, blood pressure 167/81, pulse oximetry 95% on 3 liters of nasal cannula. Her white blood count was 3.8, hemoglobin 7.7, hematocrit 25.3, platelet 188. Sodium 141, potassium 2.1, chloride 82, carbon dioxide 49, blood urea nitrogen 17, creatinine 1,65, blood glucose 90. Calcium 11.8, magnesium 1.4 , pro-BNP 1662, troponin ,0.010. Lactic acid 1.1. INR 1.44. Electrocardiogram showed sinus rhythm and LVH with secondary repolarization abnormality, similar to electrocardiogram done on 11/08/16. Chest x-ray revealed pleural effusions, edema and bibasilar opacities. Chest CT without contrast taken and results are pending. She was given potassium chloride, 40 meq orally and enoxaparin sodium, 90 mg subcutaneously. Patient's primary care provider: Dr. Galan; Information Technology Manager: Dr. Taveras PALLIATIVE CARE CONSULTATION NOTE Requesting provider Dr Rome Dotson Goals of Care 71-year-old patient well known to palliative care service due to multiple hospitalizations. She was seen by palliative care during her hospitalization approximately 3 weeks ago with diagnosis at that time of bilateral pulmonary emboli. She has history of significant COPD CHF as well as severe MR with EF of 40-45%. Papillary dysfunction due to acute inferior wall ND thought to be the cause of worsening CHF back in August. She was hospitalized in July with a diagnosis of C. difficile. She has had problems with intractable diarrhea for well over a year. She has been seen locally as well as in [place] but not always with consistent follow-up in evaluation of her diarrhea. She was hospitalized in August due to CHF/pneumonia, October for pulmonary emboli home for 2 weeks and now back at due to increasing edema and shortness of breath. She states she has chest pain across her chest and across her back which is been constant and 4 months. She has chronic shortness of breath she continues to smoke. She drinks heavily usually 4-5 alcoholic beverages a night preferring vodka. Her daughter states that she was off alcohol for a few weeks after getting out of [facility] after her hospitalization in August. She states she actually did fairly well during that time-but then began to crave alcohol. She has a long history of significant alcohol intake but most significantly over the past year. She is told her daughter that it "helps her stomach". The patient mentioned that she was tired of hospitalizations, and tired of being made to see medical providers and seek help. She has been refusing care at home including showers even at the insistence of her daughter who was there to help. She usually is reliant on her . Her states that her medications have been changed so many times he has no idea what she is on. He also notes that she will take her medication for a few days and then decided she does not want any for a few days. Her daughter states that she sleeps through most of the day and night and is only up to go to the bathroom or have something to eat. She continues to have [id number]-4-8 BM daily, no note of blood and none at night. She has chronic SOB-rest but mostly with walking. Hospital Course Patient is a 71-year-old female with congestive heart failure, coronary artery disease, hypertension, asthma, atrial fibrillation, anticoagulated on warfarin, chronic obstructive pulmonary disease, recent Clostridium difficile infection presenting with worsening chest pain and shortness of breath following her discharge 10 days ago. Patient admitted for treatment and management of anemia, severe hypokalemia and acute kidney injury. Hospital day 2. 1.Suspected CHF exacerbation, present on admission. Active -Chest x-ray findings suggestive of pulmonary edema and effusion -Elevated Pro-BMP with weight gain of approximately 12 pounds since discharge -ECHO done this month revealed mild left ventricular hypertrophy, ejection fraction 50% and hypokinesis of the basal inferior and inferolateral wall -change in diuretics today: Spironolactone 100mg PO daily and Lasix 40mg PO BID. -Continue to monitor -Patient was hospitalized from 09/13-09/17/16 with ND and worsening LV function, seen by Dr Jacobs, but did not follow up with him after leaving the hospital. 2. Acute on chronic kidney injury, present on admission. Improving, Cr down to1.58 -Most likely due to dehydration, use of TIANNA-inhibitor, congestion -Will hold lisinopril 3. Hypokalemia, acute. Present on admission. Resolved -Most likely due to home Lasix without sufficient standard replacement of potassium, use of beta-raina -Potassium-magnesium replacement protocol in place -Continue to monitor 4. Hypomagnesemia, acute. Present on admission. Resolved -Potassium-magnesium replacement protocol in place -Repeat magnesium 8 pm 5. Hypercalcemia, chronic. Present on admission. Active -Calcium has been elevated during previous hospitalization as well. PTH and Vitamin D normal during last admission -Possibly related to lung nodule, though patient declined further work up (IR biopsy) during last admission -Continue to monitor 6. Subtherapeutic INR, present on admission. Active -INR 1.44 on admission, patient is on warfarin, 10 mg daily at home -Warfarin per pharmacy -DC Warfarin and start NOAC the day before discharge, to be continued at home, either Eliquis or Pradaxa. 7. Iron deficiency anemia, chronic. Present on admission. Active -Most likely due to iron deficiency, chronic disease -Hemoglobin and hematocrit of 7.7 and 25.3 (7.9 and 25.4 on discharge 10 days ago) -Ferrous sulfate 325 mg twice a day and vitamin C 500 mg daily -Continue to monitor 8. Possible COPD exacerbation, present on admission. Active -Continue home albuterol inhaler, Brovana, Budesonide -Supplemental O2 as needed -Consider starting steroids if no improvement -No evidence of infection: patient is afebrile, no leukocytosis 9. Right upper lobe lung mass, present on admission. Active -CT angio chest revealed marked interval increase in size of previously identified sub-centimeters right upper lobe nodule, concerning for neoplastic disease. In addition, the lungs demonstrate interval development of bilateral pleural effusions as well as ill-defined areas of nodular coarsening. The latter could be related to areas of edema or poorly visualized areas of nodularity partially obscured by groundglass opacities and effusions. -Patient declined further work up (IR biopsy) during last admission 10.Recent clostridium difficile infection. Presumed stable -Patient was discharged on a long course of oral vancomycin -Continue vancomycin 125mg twice a day (for the next 2 weeks) 11. Hypothyroidism, chronic. Presumed stable -Continue levothyroxine 200 mcg daily 12. Gastroesophageal reflux disease, chronic. Presumed stable -Famotidine, 20 mg twice a day Disposition: Patient discharge home to hospice. Exam Vital Signs (Last) Date Time Temp Pulse Resp B/P Pulse Ox O2 Delivery O2 Flow Rate FiO2 11/28/16 08:17 88 22 95 Nasal Cannula 3.00 11/28/16 08:10 36.6 169/98 Exam General: Chronically ill appearing female laying in bed. No acute distress. Well developed. HEENT: normocephalic, autramatic, EOMI. Neck supple. Oxymask in place Lungs: Mild crackles bilaterally. No use of accessory muscles Heart: Regular rate and rhythm. Soft II/ systolic murmur left upper sternal boarder Abdomen: Soft. Mild tenderness to palpation lower abdomen. Bowel sounds present. Lower extremities: Pitting edema distal to knees bilaterally Neurologic: Grossly neurologically intact Psychiatric: Depressed, almost no affect Test 11/24/16 12:42 11/24/16 15:05 11/26/16 02:50 11/26/16 17:30 Urine Color Yellow (YELLOW) Urine Appearance Clear (CLEAR,HAZY) Urine pH 8.0 (5.0-8.0) Urine Specific [place] 1.007 (1.003-1.035) Urine Protein Negativemg/dL (NEG,TRACE) Urine Glucose (UA) Negativemg/dL (NEGATIVE) Urine Ketones Negativemg/dL (NEGATIVE) Urine Occult Blood Trace (NEGATIVE) Urine Nitrite Negative (NEGATIVE) Urine Bilirubin Negative (NEGATIVE) Urine Urobilinogen Normalmg/dL (NORMAL) Urine Leukocyte Esterase Negative (NEGATIVE) Urine RBC 0-2/hpf (0-2) Urine WBC 0-5/hpf (0-5) Urine Epithelial Cells Moderate/hpf (NONE-MOD) Urine Crystals None seen (NONE SEEN) Urine Bacteria Moderate/hpf (NONE-FEW) Urine Hyaline Casts None/lpf (NONE) Urine Granular Casts None seen (NONE SEEN) Urine Waxy Casts None seen (NONE SEEN) Urine Red Blood Cell Casts None seen (NONE SEEN) Urine White Blood Cell Casts None seen (NONE SEEN) Urine Mucus None seen (None Seen) Urine Trichomonas None seen (NONE SEEN) Urine Yeast None (NONE SEEN) Urinalysis Comment None Urine Culture Reflexed Indicated Lactic Acid Level 1.1mmol/L (0.4-2.0) Troponin T < 0.010ug/L (0.0-0.011) Pro-B-Type Natriuretic Peptide 1662pg/mL (0-301) Hold Alejandro Top Tube Received (Received) Procalcitonin 0.09ng/mL (0.00-0.08) Magnesium Level 1.9mg/dL (1.6-2.6) Total Bilirubin 0.3mg/dL (0.0-1.2) Aspartate Amino Transf (AST/SGOT) 17U/L (0-50) Alanine Aminotransferase (ALT/SGPT) 8U/L (0-32) Alkaline Phosphatase 71U/L (25-165) Total Protein 6.1g/dL (6.4-8.4) Albumin 3.2g/dL (3.4-5.0) Sodium Level 139mEq/L (134-144) Potassium Level 3.6mEq/L (3.5-5.2) Chloride Level 91mEq/L (97-108) Carbon Dioxide Level 36mmol/L (18-29) Blood Urea Nitrogen 15mg/dL (8-27) Creatinine 1.38mg/dL (0.57-1.00) Estimat Glomerular Filtration Rate 54mL/min (>59) Glucose Level 101mg/dL (60-99) Calcium Level 10.4mg/dL (8.5-10.1) Test 11/27/16 08:15 11/28/16 04:35 White Blood Count 4.2th/mm3 (3.8-10.1) Red Blood Count 3.33mil/mm3 (3.90-5.20) Hemoglobin 9.7g/dL (12.0-15.6) Hematocrit 30.2% (35.0-46.0) Mean Corpuscular Volume 90.7fL (81-100) Mean Corpuscular Hemoglobin 29.1pg (27.0-35.0) Mean Corpuscular Hemoglobin Concent 32.1% (32.0-37.0) Red Cell Distribution Width 16.3% (12.3-15.4) Platelet Count 215bil/L (150-400) Neutrophils (%) (Auto) 63.5% (40-74) Lymphocytes (%) (Auto) 14.6% (14-46) Monocytes (%) (Auto) 17.4% (4-12) Eosinophils (%) (Auto) 3.8% (0-5) Basophils (%) (Auto) 0.5% (0-3) Prothrombin Time 15.4sec (8.1-12.5) Prothromb Time International Ratio 1.43ratio Discharge Medications Discharge Medications Apixaban (Eliquis) 2.5 Mg Tablet 2.5 MG PO BID Prescribed by: JESSIKA LO DO Arformoterol Tartrate (Brovana) 15 Mcg/2 Ml Vial.neb 15 MCG IH DAILY (Reported) Aspirin Chew (Aspirin Chew) 81 Mg Chew 81 MG PO DAILY Prescribed by: CLEVELAND BENITEZ DO Budesonide (Budesonide) 1 Mg/2 Ml Ampul.neb 1 MG IH BID (Reported) Carvedilol (Carvedilol) 6.25 Mg Tablet 6.25 MG PO BIDWM Prescribed by: CLEVELAND BENITEZ DO Dabigatran Etexilate Mesylate (Pradaxa) 150 Mg Capsule 150 MG PO BID Prescribed by: JESSIKA LO DO Furosemide (Furosemide) 40 Mg Tablet 20 MG PO BID (Reported) Levothyroxine (Levothyroxine) 200 Mcg Tablet 200 MCG PO QAM (Reported) Lisinopril (Lisinopril) 40 Mg Tablet 40 MG PO BID (Reported) Magnesium (Magnesium) 200 Mg Tablet 200 MG PO BIDWM (Reported) Omeprazole (Omeprazole) 40 Mg Capsule.dr 40 MG PO QAM (Reported) Potassium Chloride (Potassium Chloride) 10 Meq Capsule.er 10 MEQ PO BIDWM ( Reported) TAKE WITH FOOD Vit#96/Ferrous Fum/FA ( Tablet) 1 Each Tablet 1 TABLET PO DAILY Prescribed by: RAGINI MARINO DO Ranitidine (Ranitidine) 300 Mg Tablet 300 MG PO HS (Reported) Sertraline HCl (Sertraline) 20 Mg/1 Ml Oral.conc 100 MG PO QAM (Reported) Spironolactone (Aldactone) 25 Mg Tablet 25 MG PO DAILY Prescribed by: CLEVELAND BENITEZ DO Trazodone (Trazodone) 100 Mg Tablet 100 MG PO HS (Reported) Triamcinolone Acetonide (Nasacort) 10.8 Ml [place] 2 SPRAYS NS DAILY (Reported) As needed Albuterol Sulfate (Ventolin HFA Inhaler) 200 Puff/18 Gm Inhaler 2 PUFF INH Q4H PRN PRN For Wheezing (Reported) Alprazolam (Alprazolam) 0.5 Mg Tablet 0.5 MG PO BID PRN PRN For Anxiety ( Reported) Ondansetron ODT (Ondansetron ODT) 4 Mg Tab.rapdis 4 MG PO Q8H PRN PRN For Nausea /Vomiting (Reported) Oxycodone (Roxicodone) 5 Mg Tablet 5 MG PO Q6H PRN PRN For Pain (Reported) Additional med instructions Stop Warfarin. Start Eliquis or Pradaxa. Social work will confirm which of these your insurance will cover. Followup Plan Disposition: Home with Hospice. Follow-up plan Hospice is arranged at patient's home. Discharge Diet: Heart Healthy Discharge Activity: No restrictions Patient Instructions You will meet with hospice today at home. They may change your medications. Take your medications as scheduled, BUT STOP Warfarin and start either Eliquis 2.5mg PO BID or Pradaxa 150mg PO BID. Social work is looking into which will be covered by your insurance. Make an appointment this week with [facility]. Do not drink any alcohol as it will worsen all of your medical problems. Follow-up Provider: Davin Galan MD Follow-up with PCP in: 1 week Time spent Greater than 30 minutes was spent in preparation of discharge with greater than 50% of that time dedicated to patient counseling and coordination of care. . Attending Statement The patient was seen and examined together with Dr. Lo on 11/28/2016 and I agree with the history, exam and plan as outlined in the note above. . copies to: Davin Galan MD, Alan C DO November 28, 2016 13:47 Burt Pearl MD November 28, 2016 17:56
== END 2016-11-28 12:05 | disposition hospice, home (50) | DRG 291 ==
LOC: SED 12:05 → PCC 15:25
PROVIDERS: ADMIT Internal Medicine; ATTEND Internal Medicine
PROC: 30233N1 Transfusion of Nonautologous Red Blood Cells into Peripheral Vein, Percutaneous Approach (ICD-10-PCS; principal; 2016-11-26)
DX: I50.33 Acute on chronic diastolic (congestive) heart failure (principal); J96.01 Acute respiratory failure with hypoxia; J44.1 Chronic obstructive pulmonary disease with (acute) exacerbation; N17.9 Acute kidney failure, unspecified; A04.7 Enterocolitis due to Clostridium difficile; E87.6 Hypokalemia; E83.42 Hypomagnesemia; E83.52 Hypercalcemia; D50.9 Iron deficiency anemia, unspecified; E03.9 Hypothyroidism, unspecified; K21.9 Gastro-esophageal reflux disease without esophagitis; I48.91 Unspecified atrial fibrillation; I25.10 Atherosclerotic heart disease of native coronary artery without angina pectoris; I10 Essential (primary) hypertension; E78.5 Hyperlipidemia, unspecified; Z79.01 Long term (current) use of anticoagulants; F17.210 Nicotine dependence, cigarettes, uncomplicated; Z51.5 Encounter for palliative care

== ENCOUNTER 2016-12-28 15:15 | Inpatient (IN) | payer MEDICARE ==
[2016-12-28] VITALS (8 sets, daily range): BP systolic 88–126; BP diastolic 45–82; PULSE 81–110; RESP 14–23; O2SAT 96–100
[~2016-12-28] VITALS: Ht 157.5 cm; Wt 70.8 kg
[~2016-12-28 15:15] MED LIST changes: -ACET325T51 PO; +APIX2.5T PO; +DABI150C PO; -LOV80 SUBQ; -VANC125C3 PO; -WARF5TAB7 PO
--- NOTE | 2016-12-28 15:28 | ED.REPORT ---
HPI-General Illness Date of Service Dec 28, 2016 ED Provider: Sudheer Alva MD Pt is a 71 year old female with a history of severe MR, PE x3, CAD, HTN, CHF, COPD, hyperlipidemia, A-fib, who presents to the ED via EMS due to altered mental status. Per EMS, the pt lives at home with her . She had been on hospice for a month and returned home. For the past few weeks, she has been more combative and non-compliant, refusing to take her medications. Per EMS, her blood pressure was 70/40. At time of exam she complains of dyspnea and back pain. Per EMS, on December 08, she took a massive overdose of multiple drugs to relieve her suffering purpose for suicide. About a month ago, she was in hospice due to heart failure, COPD, lung mass, and other severe comorbidities. She would complain to her , who would give her more drugs she was not supposed to have to try to help her. HPI and ROS were difficult to obtain due to the patient's mental status. Nursing Notes Stated Complaint: CONFUSION, HYPOTENSION Nursing Notes Reviewed: Yes (Re-APP, Video Blocks not reconciled) Allergies: Coded Allergies: Penicillins (Verified Allergy, Severe, ANAPHYLAXIS, 11/05/16) bupropion (Verified Allergy, Intermediate, NAUSEA, 11/05/16) Influenza Virus Vaccines (Verified Allergy, Unknown, 12/28/16) ENTERED FROM UNCODED ALLERGIES fluoxetine (Verified Allergy, Unknown, 11/05/16) sulfasalazine (Verified Allergy, Unknown, UNKNOWN, 11/05/16) Uncoded Allergies: FLU VACCINE (Adverse Reaction, Severe, NAUSEA/ VOMITTING, 01/24/16) Scheduled Carvedilol (Carvedilol) 6.25 Mg Tablet 6.25 MG PO BIDWM Fentanyl 12.5 mcg/hr Patch (Fentanyl 12.5 mcg/hr Patch) 1 Each Patch.td72 1 PATCH TRANSDERM Q3D Levothyroxine (Levothyroxine) 200 Mcg Tablet 200 MCG PO QAM Omeprazole (Omeprazole) 40 Mg Capsule.dr 40 MG PO QAM Potassium Chloride (Potassium Chloride) 10 Meq Capsule.er 20 MEQ PO BIDWM TAKE WITH FOOD Ranitidine (Ranitidine) 300 Mg Tablet 300 MG PO HS Spironolactone (Aldactone) 25 Mg Tablet 25 MG PO DAILY Trazodone (Trazodone) 100 Mg Tablet 100 MG PO HS Vancomycin (Vancomycin) 125 Mg Capsule 125 MG PO DAILY until 01/16/17 Warfarin Sodium (Warfarin Sodium) 5 Mg Tablet 7.5 MG PO Sat,Sun,Mon,Wed, Francesca Warfarin Sodium (Warfarin Sodium) 5 Mg Tablet 10 MG PO Sat,Sat Scheduled PRN Albuterol Neb Soln (Albuterol Neb Soln) 2.5 Mg/3 Ml Vial.neb 2.5 MG INHALATION Q4H PRN PRN For Shortness of Breath Hyoscyamine (Hyoscyamine) 0.125 Mg Tablet 0.25 MG PO Q4H PRN PRN Secretion Control Ipratropium/Albuterol Sulfate (Iprat-Albut 0.5-3(2.5) mg/3 mL Inhalant Soln) 3 Ml Ampul.neb 3 ML IH Q6 PRN PRN For Shortness of Breath Levalbuterol (Levalbuterol) 0.63 Mg/3 Ml Vial.neb 0.63 MG INHALATION Q2H PRN PRN For Shortness of Breath Lorazepam (Lorazepam) 1 Mg Tablet 1-2 MG PO Q4H PRN PRN For Anxiety Ondansetron ODT (Ondansetron ODT) 4 Mg Tab.rapdis 8 MG PO QID PRN PRN For Nausea /Vomiting Oxycodone (Roxicodone) 5 Mg Tablet 5 MG PO Q6H PRN PRN For Pain Quetiapine Fumarate (Quetiapine Fumarate) 50 Mg Tablet 50 MG PO Q4H PRN PRN For Agitation Sennosides (Senna) 8.6 Mg Tablet 1-4 TAB PO BID PRN PRN For Constipation General Time Seen by MD: 15:20 Chief Complaint Other (Confusion) Hx Obtained From: Patient, EMS Unable to Obtain Hx: Mental status Arrived By: Ambulance Sudden in Onset?: No Onset Occurred: More than a week ago... (3 weeks) Symptom Duration: Since onset Location: : Back Severity: Current: Moderate Severity: Maximum: Moderate Recent Healthcare: Recent doctor visit, Recent hospitalization Similar Sx Previous: Yes Past Medical History Past Medical History Notes: PCP: Dr. Galan GI: Dr. Taveras Seen in emergency department 06/25/2016 for arellano-colitis (scheduled for 1 month from now?) Admit January 2015 for respiratory failure Past Medical History Moderate-sever mitral valve regurgitation, cardiac cath 02/2014 with normal coronaries. Echo 01/2015 LVEF 40-45% severe MR. Hiatal hernia Cardiomegaly Hypothyroidism Arellano Colitis 05/2016 Diverticulosis Chronic insomnia Colon polyps Pneumonia Depression Anxiety 3 pulmonary embolism on warfarin History of binge alcoholism History of prolonged QT History of atrial fibrillation Reports: Asthma, COPD, Congestive heart failure, Coronary artery disease, GERD, Hyperlipidemia, Hypertension Reports: Atrial fibrillation, Urinary tract infection Past Surgical History Right knee surgery in 1966 Cardiac cath 2013 Hysterectomy in 2003 Reports: Cholecystectomy Smoking History Current Every Day Smoker Social History Lives with She has been on hospice since November 28, 2016 Alcohol Use: 3-5 per day Drug Use: Denies drug use, Other Other Social History: Good social support, Ambulatory Status Independent Review of Systems Difficult to obtain ROS due to patient's mental status. Pt has delirium. Unable to Obtain ROS Mental status Full Review of Systems Respiratory: Reports: Shortness of breath Musculoskeletal: Reports: Back pain Neurologic: Reports: Confusion Psychiatric: Reports: Agitation, Confusion Physical Exam Vital Signs Vital Signs Date Time Temp Pulse Resp B/P Pulse Ox O2 Delivery O2 Flow Rate FiO2 12/28/16 17:26 110 20 117/74 97 Room Air 12/28/16 17:05 105 23 114/76 100 Non-Rebreather 12/28/16 16:51 96 22 126/82 96 Nasal Cannula 6 12/28/16 16:00 81 16 113/62 96 Room Air 12/28/16 15:35 36.7 88 14 109/65 98 Room Air Initial VS: Reviewed, Vital signs normal Head / Eyes: Atraumatic, Normocephalic, PERRL ENT: Mucous membranes moist, Conjunctiva normal, No scleral icterus Neck: Supple, Full range of motion Respiratory: Breath sounds normal, Clear to auscultation, No respiratory distress Abdomen / GI: Soft, Non-tender, No guarding, No rebound, No distention Skin: Warm, Dry, No cyanosis General/Constitutional: Awake Alertness: Positive: Confused, Disoriented No visible signs of trauma. Sedated, drowsy, and Pt cannot tell why she is here. She answers some questions correctly, but cannot maintain conversation. Globally weak No head trauma Cardiovascular: Heart rate NL, Regular rhythm, Heart sounds NL Heart Rate / Rhythm: Negative: Bradycardia, Tachycardia Hypotensive in field but normo tensive for us Neurologic: No motor deficits Sedated Inappropriately drowsy Answers some questions correctly Falls asleep in middle of conversation Lifts arms equally Does not lift either leg up but wiggles all toes equally No focality during exam Interpretation & Diagnostics Lab Results Interpretation Result Diagram: 12/28/16 1546 12/28/16 1546 Test 12/28/16 15:46 12/28/16 16:44 White Blood Count 6.1th/mm3 (3.8-10.1) Red Blood Count 3.94mil/mm3 (3.90-5.20) Hemoglobin 11.4g/dL (12.0-15.6) Hematocrit 34.5% (35.0-46.0) Mean Corpuscular Volume 87.6fL (81-100) Mean Corpuscular Hemoglobin 28.9pg (27.0-35.0) Mean Corpuscular Hemoglobin Concent 33.0% (32.0-37.0) Red Cell Distribution Width 15.9% (12.3-15.4) Platelet Count 294bil/L (150-400) Neutrophils (%) (Auto) 78.1% (40-74) Lymphocytes (%) (Auto) 8.0% (14-46) Monocytes (%) (Auto) 12.4% (4-12) Eosinophils (%) (Auto) 1.0% (0-5) Basophils (%) (Auto) 0.3% (0-3) Prothrombin Time 11.4sec (8.1-12.5) Prothromb Time International Ratio 1.06ratio Sodium Level 129mEq/L (134-144) Potassium Level 7.2mEq/L (3.5-5.2) Chloride Level 91mEq/L (97-108) Carbon Dioxide Level 19mmol/L (18-29) Blood Urea Nitrogen 98mg/dL (8-27) Creatinine 3.75mg/dL (0.57-1.00) Estimat Glomerular Filtration Rate 17mL/min (>59) Glucose Level 124mg/dL (60-99) Calcium Level 10.4mg/dL (8.5-10.1) Total Bilirubin 0.3mg/dL (0.0-1.2) Aspartate Amino Transf (AST/SGOT) 50U/L (0-50) Alanine Aminotransferase (ALT/SGPT) 30U/L (0-32) Alkaline Phosphatase 96U/L (25-165) Total Protein 7.7g/dL (6.4-8.4) Albumin 3.9g/dL (3.4-5.0) Alcohols < 10mg/dL (0-10) Lactic Acid Level 1.2mmol/L (0.4-2.0) Ammonia 41ug/dL (18-53) Phenobarbital Level 10.1ug/mL (15.0-40.0) Lab Results Interpretation: CBC normal CMP +hyper K, new renal failure Lactic acid normal Ammonia normal Phenobarbital normal ECG Interpretation ECG Interpretation: Sinus rhythm with a rate of 89. Peaked T waves which are new Q waves inferiorly and anteriorly that are old Compared to November 24, 2016 Findings concerning for hyperkalemia Time: 16:41 Interpreted by: ED physician X-Ray Chest Interpretation Chest Xray Interpretation: IMPRESSION: 1. No acute cardiopulmonary disease. 2. Moderate-sized hiatal hernia again noted. Dictated by: Kane Dangelo M.D. on 12/28/2016 at 16:19 View: Portable, 1 view Interpretation / Wet Read by: Interpret - Radiologist CT Head Interpretation IMPRESSION: 1. No acute intracranial process. 2. Moderate atrophy and chronic microvascular ischemic changes. Dictated by: Fannie Tabares M.D. on 12/28/2016 at 14:56 Study: Head CT no contrast Interpretation / Wet Read by: Interpret - Radiologist Re-Eval/Medical Decision Med Decision/Clinical Course This is a 71-year-old female sent in by EMS occasion of hospice. Please see the extensive, well written note via the hospitalist provider Diana Pinto. Please also see the recent admission in October of this year. Patient was placed in hospice for COPD beginning of November, about continued to be uncomfortable and had an unintentional but severe accidental overdose of morphine, Haldol - resulting in some significant akathisia. Than she has had problems with ongoing delirium, further consultative by both medication noncompliance, and some binge alcohol drinking, leading to several attempts at changing medicines- please see the note from the hospice for more details, managed sleep and for comfort-but thus far without success. Patient's having alternating periods of somnolence, followed by agitation, and management home and simply not working to the point the family revoked hospice. They then indicated they would " wanted everything done" and even added that they wanted her to be worked up for the lung mass identified on CT scan a month ago, which the patient actually declined workup. Here in the department the patient is alternating somnolent and agitated. He is confused, cannot provide a useful history. However there is no clear focal deficits. And appears to somnolence she does appear sedated. She has adequate respirations, was placed in an tidal CO2 monitor with normal CO2 and no evidence of hypercapnic respiratory failure. CT brain was negative. Chest x-rays negative for acute disease. Blood work revealed new hyperkalemia and renal failure. Recent medication list does include lisinopril and oral potassium, and as indicated there is some question of what the patient's actually been taking in recent days she may take extra doses of these accidentally. Patient did have several episodes of nonsustained V. tach, EKG demonstrates findings of hyperkalemia, so the patient was treated with calcium gluconate 3 g, insulin, dextrose, sodium bicarbonate, albuterol, and we attempted oral calyx later the patient refused. Trying to consider if we can administer rectal A the patient's laughing cooperative without either. I am providing a little bit of additional sedation with lorazepam. I consult the pouch of care given the difficult situation where in and it complex patient with multiple comorbidities, and overall grim prognosis, with a combination of acute chronic problems and has simply recently revoked hospice, but has no change in fact has had worsening of the multiple underlying disease processes. Patient's being admitted for attempts additional management, and the original focus as discussed with the and the hospice is the plan better management of her delirium and agitation-I am attempting to address the hyperkalemia, but there does appear to be considerable futility in aggressive full course management of all of the medical issues that the patient has refused a prior care for. Consultation with nephrology and has been requested and case discussed. Source of Hx: Old records Time of Eval: 16:30 Re-Evaluation/Progress Note: Pt rechecked. She is now in what appears to be a non-sustained V-tach rate 140s. Potassium just resulted at 7.2. Ordering calcium gluconate. Consultation #1: Referral / Consult Name: Burt Pearl MD Consulted With: Hospitalist Call Returned at: 17:28 Ob Nurse: Will see patient, Agrees with eval, Agrees with plan, Accepts admit Consultation #2: Referral / Consult Name: Mj Kendrick MD Call Returned at: 15:47 Ob Nurse: Agrees with eval, Agrees with plan Note: Hospice will consult Differential Diagnosis: Negative: Diabetes mellitus, Fracture, G-tube repair/ replacement, Laceration, Medication refill, Neutropenia, Pneumonia, Tonsillitis , acute Counseled Regarding: Diagnosis, Lab results, Need for admission Discharge & Departure Primary Impression: Altered mental status Altered mental status type: delirium Qualified Code: R41.0 - Disorientation , unspecified Additional Impressions: Nonsustained ventricular tachycardia Hyperkalemia Acute renal failure Acute renal failure type: unspecified Qualified Code: N17.9 - Acute kidney failure, unspecified Polypharmacy Disposition: ADMITTED TO HOSPITAL Discharge Condition All VS Reviewed: Yes Condition: Stable Referrals: Davin Galan MD (PCP) Crit Care Except Billable Proc Time Spent: 75-104 minutes Services Performed: Patient management by me, Time spent at bedside, Reviewing test results, Reviewing imaging, Discussing patient care, Documentation in record, Time with fam/surrogate Scribe Attestation Portions of this note were transcribed by Yoni Jama and Karla Whitmore. I, Dr. Alva personally performed the history, physical exam and medical decision -making; I reviewed and confirmed the accuracy of the information in the transcribed note. Signed by: Yoni Jama and Claire Infante, 12/28/16 and 16:00 copies to: Davin Galan MD, Matthew F MD Dec 28, 2016 15:28 Karla Pyle Dec 28, 2016 15:41 YONI JAMA Dec 28, 2016 16:31
--- NOTE | 2016-12-28 15:30 | ED.REPORT ---
HPI-Abd Pain F 2 and Over Date of Service Dec 28, 2016 ED Provider: Sudheer Alva MD Pt is a 71 year old female who presents to the ED via EMS due to confusion. Per EMS, the pt lives at home with her . She had been on hospice, and for the past few weeks, she has been more combative and non-compliant. Per EMS, her blood pressure was 70/40, the pt has been having blood clots. Pt complains of dyspnea, and back pain. HPI and ROS were difficult to obtain due to the patient's mental status. Nursing Notes Stated Complaint: CONFUSION, HYPOTENSION Nursing Notes Reviewed: Yes Allergies: Coded Allergies: Penicillins (Verified Allergy, Severe, ANAPHYLAXIS, 11/05/16) bupropion (Verified Allergy, Intermediate, NAUSEA, 11/05/16) Influenza Virus Vaccines (Unverified Allergy, Unknown, 11/06/16) ENTERED FROM UNCODED ALLERGIES fluoxetine (Verified Allergy, Unknown, 11/05/16) sulfasalazine (Verified Allergy, Unknown, UNKNOWN, 11/05/16) Uncoded Allergies: FLU VACCINE (Adverse Reaction, Severe, NAUSEA/ VOMITTING, 01/24/16) Scheduled Apixaban (Eliquis) 2.5 Mg Tablet 2.5 MG PO BID Arformoterol Tartrate (Brovana) 15 Mcg/2 Ml Vial.neb 15 MCG IH DAILY Aspirin Chew (Aspirin Chew) 81 Mg Chew 81 MG PO DAILY Budesonide (Budesonide) 1 Mg/2 Ml Ampul.neb 1 MG IH BID Carvedilol (Carvedilol) 6.25 Mg Tablet 6.25 MG PO BIDWM Dabigatran Etexilate Mesylate (Pradaxa) 150 Mg Capsule 150 MG PO BID Furosemide (Furosemide) 40 Mg Tablet 20 MG PO BID Levothyroxine (Levothyroxine) 200 Mcg Tablet 200 MCG PO QAM Lisinopril (Lisinopril) 40 Mg Tablet 40 MG PO BID Magnesium (Magnesium) 200 Mg Tablet 200 MG PO BIDWM Omeprazole (Omeprazole) 40 Mg Capsule.dr 40 MG PO QAM Potassium Chloride (Potassium Chloride) 10 Meq Capsule.er 10 MEQ PO BIDWM TAKE WITH FOOD Vit#96/Ferrous Fum/FA ( Tablet) 1 Each Tablet 1 TABLET PO DAILY Ranitidine (Ranitidine) 300 Mg Tablet 300 MG PO HS Sertraline HCl (Sertraline) 20 Mg/1 Ml Oral.conc 100 MG PO QAM Spironolactone (Aldactone) 25 Mg Tablet 25 MG PO DAILY Trazodone (Trazodone) 100 Mg Tablet 100 MG PO HS Triamcinolone Acetonide (Nasacort) 10.8 Ml Hayes 2 SPRAYS NS DAILY Scheduled PRN Albuterol Sulfate (Ventolin HFA Inhaler) 200 Puff/18 Gm Inhaler 2 PUFF INH Q4H PRN PRN For Wheezing Alprazolam (Alprazolam) 0.5 Mg Tablet 0.5 MG PO BID PRN PRN For Anxiety Ondansetron ODT (Ondansetron ODT) 4 Mg Tab.rapdis 4 MG PO Q8H PRN PRN For Nausea /Vomiting Oxycodone (Roxicodone) 5 Mg Tablet 5 MG PO Q6H PRN PRN For Pain General Time Seen by MD: 15:25 Chief Complaint Other (Back pain) Hx Obtained from: Patient, EMS Arrived by: Ambulance Sudden in Onset?: No Onset Occurred: More than a week ago... (2 weeks) Symptom Duration: Since onset Location: : Back Severity: Current: Moderate Severity: Maximum: Moderate Recent Healthcare: Recent doctor visit, Recent hospitalization Similar Sx Previous: Yes Past Medical History Past Medical History Notes: PCP: Dr. Galan GI: Dr. Taveras Seen in emergency department 06/25/2016 for arellano-colitis (scheduled for 1 month from now?) Admit January 2015 for respiratory failure Smoking History Current Every Day Smoker Ambulatory Status Ambulatory Status: Independent Review of Systems ROS was difficult to obtain as the patient was uncooperative and disoriented. Respiratory: Denies: Non-productive cough Musculoskeletal: Reports: Back pain Complete sys rev & neg: except as marked. Physical Exam Initial Vital Signs Initial VS: Reviewed Discharge & Departure Referrals: Davin Galan MD (PCP) Karla Pyle Dec 28, 2016 15:30
[2016-12-28 15:50] LABS: BASOPHILS % (AUTO) 0.3 % (0-3); MONOCYTES % (AUTO) 12.4 % (4-12); Mean Corpuscular Hemoglobin 28.9 pg (27.0-35.0); Mean Corpuscular Volume 87.6 fL (81-100); NEUTROPHILS % (AUTO) 78.1 % (40-74); Platelet Count 294 bil/L (150-400)
--- NOTE | 2016-12-28 15:58 | DRSVH ---
PROCEDURE: CT BRAIN WITHOUT CONTRAST ([id number]) INDICATIONS: Altered LOC TECHNIQUE: Noncontrast 4.5 mm thick angled axial sections acquired from the foramen magnum to the vertex, with c oronal reformats. COMPARISON: [facility], CT, CT BRAIN WO CON, 08/13/2016, 13:00. FINDINGS: Image quality: Excellent. CSF spaces: Basal cisterns are patent. No extra-axial fluid collections. The ventricles are symmet song in size and shape. Brain: No intracranial bleeds or masses. There is cerebral volume loss for age, with resultant vent ricular and sulcal prominence. There are periventricular and deep white matter chronic small vessel ischemic changes. There is intracranial internal carotid artery atherosclerosis. Skull and face: Calvarium and visualized facial bones appear intact, without suspicious lesions. Sinuses: Visualized sinuses and mastoids are clear. IMPRESSION: 1. No acute intracranial process. 2. Moderate atrophy and chronic microvascular ischemic changes. Dictated by: Fannie Tabares M.D. on 12/28/2016 at 14:56 Approved by: Fannie Tabares M.D. on 12/28/2016 at 14:57
[2016-12-28 16:07] LABS: INR 1.06 ratio
--- NOTE | 2016-12-28 16:21 | DRSVH ---
PROCEDURE: X-RAY CHEST ONE VIEW, PORTABLE ([id number]) INDICATIONS: SHORT OF BREATH TECHNIQUE: One view of the chest was acquired. COMPARISON: [facility], CR, XR CHEST 1VW (PORTABLE), 09/13/2016, 10:30. [facility], CR, XR CHEST 1VW (PORTABLE), 11/24/2016, 12:08. FINDINGS: Surgical changes and devices: None. Lungs and pleura: No pleural effusions or pneumothorax. Lungs are clear. Mediastinum: Mediastinal contours appear unchanged. There is a moderate-sized hiatal hernia again n oted. Heart size is normal. Bones and chest wall: No suspicious bony lesions. Overlying soft tissues appear unremarkable. IMPRESSION: 1. No acute cardiopulmonary disease. 2. Moderate-sized hiatal hernia again noted. Dictated by: Kane Dangelo M.D. on 12/28/2016 at 16:19 Approved by: Kane Dangelo M.D. on 12/28/2016 at 16:20
[2016-12-28] MEDS ORDERED: Calcium GLUCOnate 10% (Gm) 1 Gm/10 mL Inj ONE (16:27)
[2016-12-28] MEDS ORDERED: Sodium Polystyrene Sulfonate 0.25 Gm/mL 500 mL Suspension PO ONE ×2 (16:30→17:40)
[2016-12-28] MEDS ORDERED: Insulin Human REGular-Omnicell 100 Unit/mL IV ONE ×2 (16:30→17:40)
[2016-12-28] MEDS ORDERED: Sodium Bicarb (50 mEq) 8.4% 1 mEq/mL 50 mL Syringe IVPUSH ONE (16:30)
[2016-12-28] MEDS ORDERED: Calcium GLUCOnate 10% (Gm) 1 Gm/10 mL Inj IVPUSH PRN ×2 (16:30→16:40)
[2016-12-28] MEDS ORDERED: Dextrose 10% 250 ML in IV Bag 1 EACH IV ONE (16:30)
[2016-12-28] MEDS ORDERED: Albuterol 0.5% (5mg/mL) 20 mL Inhalation Solution NEB ONE ×2 (16:30→17:40)
--- NOTE | 2016-12-28 16:37 | PCM.PALLBR ---
Palliative Brief Note Date of Service Dec 28, 2016 . Received a phone call from emergency room/Dr. Sudheer Alva regarding patient evaluation underway in the ER. I contacted Dr. Olivares of hospice by phone to get some additional background information. Patient signed on to hospice approximately 1 month ago, with a history of advanced COPD, systolic congestive heart failure with severe mitral regurgitation (not amenable to surgical repair) multiple pulmonary emboli, lung masses of undetermined etiology (though felt to be concerning for neoplasm). On December 08, patient had a massive overdose of multiple medications- this was apparently not a suicide attempt but rather was a miss guided attempt by her to obtain relief from her distress. Hospice managed transient respiratory depression with Narcan. Patient developed akathisia from haloperidol (which had been part of the overdose) which was treated with lorazepam and then phenobarbital. Unfortunately, the patient went on an alcohol binge (she has a history of binge drinking at least, and unclear amount of regular alcohol use). Her behavior began to deteriorate, as she became increasingly abusive towards her , insisting that he give her narcotics and other medications beyond what was prescribed. Hospice continued to follow and try to manage as her behaviors deteriorated and she became increasingly delirious. She had an episode of bradycardia and hypotension 3 days prior to her ER presentation and her cardiac/ antihypertensive meds were held with recovery. 2 days prior to ER visit her morphine and phenobarbital were discontinued and she was given 2 mg of lorazepam and 200 mg of Seroquel as a 1 time dose to try to help her sleep and behaviorally stabilize. She obtained what seemed to be a good amount of rest but on awakening her delirium was no better, and because of the persistent delirium per family was advised to bring her to the hospital and hospice status was revoked (though she could resume with hospice if she in the family wished so at time of discharge). At time of presentation to the emergency department the family also now, after reconsidering the situation at home over the last several weeks, wanted to revisit the question of the multiple pulmonary masses and consider further workup. They noted that the patient had perhaps been transiently depressed and refused workup after cardiology told her she was not a candidate for mitral valve surgery, but that upon further consideration the patient and her family might want to pursue more aggressive workup and even treatment. Per my conversations with Dr. Alva, patient will be admitted to medicine service for stabilization and further evaluation. Palliative medicine will be available for consultation on Saturday, December 31 as needed. Total 40 minutes spent today reviewing records in EMR, consulting with hospice physician and ER physician and coordinating care. Mj Kendrick MD Dec 28, 2016 16:37
[2016-12-28] MEDS ORDERED: Lidocaine 2% 6mL Topical Jelly TOPICAL ONE (17:15)
[2016-12-28] MEDS ORDERED: Furosemide 10 mg/mL 2 mL Inj IVPUSH ONE (17:40)
[2016-12-28] MEDS ORDERED: Ondansetron 2 mg/mL 2 mL Inj IVPUSH PRN (17:45)
[2016-12-28] MEDS ORDERED: Polyethylene Glycol (PEG) 17 Gm Powder PO PRN (17:45)
[2016-12-28] MEDS ORDERED: WARF5TAB7 PO ×2 (18:23)
[2016-12-28] MEDS ORDERED: FENT1PAT6 TRANSDERM (18:23)
[2016-12-28] MEDS ORDERED: VANC125C3 PO (18:23)
[2016-12-28] MEDS ORDERED: IPRA3AMP IH (18:27)
[2016-12-28] MEDS ORDERED: ALBU2.5V4 INHALATION (18:27)
[2016-12-28] MEDS ORDERED: LORA1TAB PO (18:27)
[2016-12-28] MEDS ORDERED: LEVA0.6312 INHALATION (18:27)
[2016-12-28] MEDS ORDERED: HYOS0.1216 PO (18:27)
[2016-12-28] MEDS ORDERED: QUET50TA55 PO (18:30)
[2016-12-28] MEDS ORDERED: SENN-133 PO (18:30)
--- NOTE | 2016-12-28 18:45 | PCM.HPMED ---
Subjective Date of Service Dec 28, 2016 Primary Provider: Admitting Physician: Burt Pearl MD Primary Care Physician: Davin Galan MD Attending Physician: Burt Pearl MD Chief Complaint: Confusion, mental status change, and hyperkalemia History of Present Illness: 71-year-old female with a history of severe MR, PEs 3, CAD, hypertension, CHF, COPD, hyperlipidemia, A. fib, ventricular alcoholism, chronic pain, prior overdose, and report of multiple pulmonary masses that has not been worked up. Patient is on hospice and this morning when she became more confused hospice was suspended so she can be seen in the ED. Her states that she was yelling at him was very worked up before becoming very confused, somnolent versus lethargic, but at the same time more combative. Over the last month or so she is been deteriorating 3 days before presentation she had bradycardia episode with episode of hypotension and 70/40. When she was initially examined by the emergency department she complained of dyspnea and back pain which resolved after albuterol. Placement blood work showed relatively benign CBC, hyperkalemia, hypochloremia, and acute kidney injury with a creatinine of 3.75. Patient also had a mild hypercalcemia. Carbatrol level was checked and was low at 10.1 and alcohol is negative. Blood cultures were obtained. CT of the brain showed no acute intracranial process although there were some microvascular ischemic changes. Chest x-ray showed moderate-sized hiatal hernia otherwise was benign. Patient did have a couple runs of non-sustained, asymptomatic vtach in the ED and was treated with hyperkalemia protocol. Discussion with patient's and he wishes for the patient to continue to receive workup, including workup which was previously deferred on her pulmonary masses that were not seen on chest x-ray, but were identified on CT of the chest on 11/24/2016 From Palliative Note 11/26/16 "The patient mentioned that she was tired of hospitalizations, and tired of being made to see medical providers and seek help. She has been refusing care at home including showers even at the insistence of her daughter who was there to help. She usually is reliant on her . Her states that her medications have been changed so many times he has no idea what she is on. He also notes that she will take her medication for a few days and then decided she does not want any for a few days. Her daughter states that she sleeps through most of the day and night and is only up to go to the bathroom or have something to eat. She continues to have [id number] BM daily, no note of blood and none at night. She has chronic SOB-rest but mostly with walking." Review of Systems: Complete review of systems performed. Pertinent positives and negatives per history of present illness. All other systems reviewed and are negative. Allergies Coded Allergies: Penicillins (Verified Allergy, Severe, ANAPHYLAXIS, 11/05/16) bupropion (Verified Allergy, Intermediate, NAUSEA, 11/05/16) Influenza Virus Vaccines (Verified Allergy, Unknown, 12/28/16) ENTERED FROM UNCODED ALLERGIES fluoxetine (Verified Allergy, Unknown, 11/05/16) sulfasalazine (Verified Allergy, Unknown, UNKNOWN, 11/05/16) Uncoded Allergies: FLU VACCINE (Adverse Reaction, Severe, NAUSEA/ VOMITTING, 01/24/16) Home Medications Apixaban (Eliquis) 2.5 Mg Tablet 2.5 MG PO BID Arformoterol Tartrate (Brovana) 15 Mcg/2 Ml Vial.neb 15 MCG IH DAILY Budesonide (Budesonide) 1 Mg/2 Ml Ampul.neb 1 MG IH BID Carvedilol (Carvedilol) 6.25 Mg Tablet 6.25 MG PO BIDWM Dabigatran Etexilate Mesylate (Pradaxa) 150 Mg Capsule 150 MG PO BID Levothyroxine (Levothyroxine) 200 Mcg Tablet 200 MCG PO QAM Omeprazole (Omeprazole) 40 Mg Capsule.dr 40 MG PO QAM Potassium Chloride (Potassium Chloride) 10 Meq Capsule.er 20 MEQ PO BIDWM TAKE WITH FOOD Vit#96/Ferrous Fum/FA ( Tablet) 1 Each Tablet 1 TABLET PO DAILY Ranitidine (Ranitidine) 300 Mg Tablet 300 MG PO HS Sertraline HCl (Sertraline) 20 Mg/1 Ml Oral.conc 100 MG PO QAM Spironolactone (Aldactone) 25 Mg Tablet 25 MG PO DAILY Trazodone (Trazodone) 100 Mg Tablet 100 MG PO HS Triamcinolone Acetonide (Nasacort) 10.8 Ml [place] 2 SPRAYS NS DAILY Albuterol Sulfate (Ventolin HFA Inhaler) 200 Puff/18 Gm Inhaler 2 PUFF INH Q4H PRN PRN For Wheezing Alprazolam (Alprazolam) 0.5 Mg Tablet 0.5 MG PO BID PRN PRN For Anxiety Ondansetron ODT (Ondansetron ODT) 4 Mg Tab.rapdis 4 MG PO Q8H PRN PRN For Nausea /Vomiting Oxycodone (Roxicodone) 5 Mg Tablet 5 MG PO Q6H PRN PRN For Pain PMH Moderate-sever mitral valve regurgitation, cardiac cath 02/2014 with normal coronaries. Echo 01/2015 LVEF 40-45% severe MR. Hiatal hernia Cardiomegaly Hypothyroidism Reardon Colitis 05/2016 Diverticulosis Chronic insomnia Colon polyps Pneumonia Depression Anxiety 3 pulmonary embolism on warfarin History of binge alcoholism History of prolonged QT History of atrial fibrillation Reports: Asthma, COPD, Congestive heart failure, Coronary artery disease, GERD, Hyperlipidemia, Hypertension Reports: Atrial fibrillation, Urinary tract infection Surgical History Right knee surgery in 1966 Cardiac cath 2011, 2013 Hysterectomy in 2003 Reports: Cholecystectomy Family History Unable to obtain as patient is delirious Social History Hx Alcohol Use: Yes (daily) Hx Substance Use: No Hx Tobacco Use: Yes (1-2 drinks per day) Smoking Status: Current Every Day Smoker Exam Vital Signs Vital Sign - Last Date Time Temp Pulse Resp B/P Pulse Ox O2 Delivery O2 Flow Rate FiO2 12/28/16 17:26 110 20 117/74 97 Room Air 12/28/16 16:51 6 12/28/16 15:35 36.7 Exam General: Patient delirious and combative HEENT: No JVD, membranes dry Cardio: RRR Respiratory: CTA bilaterally Extremities: Edema noted in lower extremities bilaterally, IVs in place, no rashes Neuro: Patient unable to participate neuro exam Site: Patient obviously delirious Skin: no rashes Lab and Diagnostics Result Diagram: 12/28/16 1546 12/28/16 1546 X-Rays, CTs and MRIs CXR 1. No acute cardiopulmonary disease. 2. Moderate-sized hiatal hernia again noted. Dictated by: Kaen Dangelo M.D. on 12/28/2016 at 16:19 CT Brain 1. No acute intracranial process. 2. Moderate atrophy and chronic microvascular ischemic changes. Dictated by: Fannie Tabares M.D. on 12/28/2016 at 14:56 Assessment & Plan 71-year-old female with a very complicated medical history really been declining over the last month and was on hospice prior to admission to the hospital who presented due to acute delirium, acute kidney injury and hyperkalemia. Patient is very delirious and combative and previously has denied additional workup. Her does not want put her on comfort care and would like her pulmonary masses worked up. Acute hyperkalemia in the setting of acute kidney injury; present on admission; ongoing -Patient presents with a potassium 7.2 and hyperkalemia protocol was initiated -albuterol and Lasix 1 -receiving NS at 200 mL/hour -Repeat BMP at 2200 -Repeat BMP in morning labs -ABG is unobtainable due to combative patient Acute on chronic delirium; present on admission; ongoing -There is a patient has out patient benzos -Ativan 1-2 mg every 2 hr -Seroquel 25; can increase dose until effect -Initial impression is patient will need to be sedated for work-up or awake and in restraints -Patient has been declining over the last month and was on hospice and recommend palliative consult on Saturday for discussions of care -Procal pending; bcx pending Pulmonary masses; present on admission; ongoing -Diagnosed CT in October 2016 -Previous workup declined and patient placed on hospice -Patient is not medically stable pulmonary biopsy at this time -Consider surgical or pulmonary consult for additional workup Chronic pain -Continue home pain regimen once verified Disposition: Patient is admitted to inpatient status duration of treatment greater than 2 minutes Pain Evaluation: Adequate Pain Control Resuscitation Status: DNR/DNI:Do Not Resuscitate/Intubate Attending Statement The patient was seen and examined together with Dr. Jackson on 12/28/2016 and I agree with the history, exam and plan as outlined in the note above. . copies to: Davin Galan MD, Michael R DO Dec 28, 2016 18:45 Burt Pearl MD Dec 29, 2016 17:18
[2016-12-28] MEDS: 0.9% Sodium Chloride 1,000 ML IV SCH (20:18)
[2016-12-28] MEDS: Multivit-Miner-Folic Acid-Iron Tablet PO SCH (21:20)
[2016-12-29] VITALS (9 sets, daily range): BP systolic 75–123; BP diastolic 38–70; PULSE 71–101; RESP 16–20; O2SAT 97–99
[2016-12-29] MEDS: 0.9% Sodium Chloride 1,000 ML IV SCH ×4 (02:27→13:47)
[2016-12-29 02:47] LABS: APPEARANCE,URINE HAZY (CLEAR,HAZY); COLOR,URINE YELLOW (YELLOW); OCCULT BLOOD,URINE TRACE (NEGATIVE); UROBILINOGEN,URINE NORMAL (NORMAL); YEAST,URINE FEW (NONE SEEN)
[2016-12-29] MEDS ORDERED: Dextrose 10% 250 ML in IV Bag 1 EACH IV ONE (04:30)
[2016-12-29] MEDS ORDERED: Dextrose 10% 250 ML IV ONE ×3 (04:31→14:55)
[2016-12-29 06:02] LABS: BASOPHILS % (AUTO) 0.2 % (0-3); Mean Corpuscular Hemoglobin 28.7 pg (27.0-35.0); Mean Corpuscular Volume 88.2 fL (81-100); NEUTROPHILS % (AUTO) 67.4 % (40-74); Platelet Count 248 bil/L (150-400)
[2016-12-29 06:35] LABS: Phosphorus 4.5 mg/dL (2.5-4.9)
[2016-12-29] MEDS ORDERED: Calcium GLUCOnate 10% (Gm) 1 Gm/10 mL Inj IVPUSH ONE (08:10)
[2016-12-29] MEDS ORDERED: Insulin Human REGular-Omnicell 100 Unit/mL IV ONE (08:10)
[2016-12-29] MEDS ORDERED: Albuterol 0.5% (5mg/mL) 20 mL Inhalation Solution NEB ONE (08:10)
[2016-12-29] MEDS ORDERED: Dexmedetomidine Inj 400 MCG in 0.9% Sodium Chloride 100 ML IV SCH (09:15)
[2016-12-29] MEDS ORDERED: Dexmedetomidine 400 mCg/100 mL 400 MCG in IV Premix 1 EACH IV PRN (09:35)
[2016-12-29] MEDS: Multivit-Miner-Folic Acid-Iron Tablet PO SCH (10:06)
--- NOTE | 2016-12-29 14:59 | PCM.PNMED ---
Subjective Date of Service Dec 29, 2016 Subjective 71-year-old female with a history of severe MR, PEs 3, CAD, hypertension, CHF, COPD, hyperlipidemia, A. fib, ventricular alcoholism, chronic pain, prior overdose, and report of multiple pulmonary masses that has not been worked up. She reported wanting to get out of bed and that she was uncomfortable with all of the wires and blankets around her. Exam Vital Signs Vital Sign - Last Date Time Temp Pulse Resp B/P Pulse Ox O2 Delivery O2 Flow Rate FiO2 12/29/16 12:02 36.2 71 17 75/38 97 Room Air 12/28/16 16:51 6 Intake and Output 12/28/16 12/28/16 12/29/16 Cumulative From/Thru 15:00 23:00 07:00 12/28/16 15:35 - 12/29/16 06:25 Intake Total 100 ml 1900 ml 2000 ml Output Total 1600 ml 1600 ml Balance 100 ml 300 ml 400 ml Intake Oral 200 ml 200 ml IV Total 100 ml 1700 ml 1800 ml Output Urine Total 1600 ml 1600 ml Exam General: Patient delirious HEENT: No JVD, membranes dry Cardio: RRR Respiratory: CTA bilaterally Extremities: Mild pitting edema noted in lower extremities bilaterally, IVs in place, no rashes Neuro: Patient unable to participate in neuro exam Site: Patient delirious and feel asleep during exam Skin: no rashes IVs and Medications Medications Reviewed: Medications were reviewed in detail Lab and Diagnostics Result Diagram: 12/29/16 0548 12/29/16 1150 X-Rays, CTs and MRIs CXR 1. No acute cardiopulmonary disease. 2. Moderate-sized hiatal hernia again noted. Dictated by: Kane Dangelo M.D. on 12/28/2016 at 16:19 CT Brain 1. No acute intracranial process. 2. Moderate atrophy and chronic microvascular ischemic changes. Dictated by: Fannie Tabares M.D. on 12/28/2016 at 14:56 Assessment & Plan 71-year-old female with a very complicated medical history really been declining over the last month and was on hospice prior to admission to the hospital who presented due to acute delirium, acute kidney injury and hyperkalemia. Patient is very delirious and combative and previously has denied additional workup. Her does not want put her on comfort care and would like her pulmonary masses worked up. Acute hyperkalemia in the setting of acute kidney injury; present on admission; improving -Patient presented with a potassium 7.2 and hyperkalemia protocol was initiated -calcium gluconate, albuterol, Lasix, and insulin -receiving NS at 100 mL/hour -Repeat BMP in morning -ABG is unobtainable due to combative patient -Nephrology consult tomorrow if needed Acute kidney injury, present on admission, improving. - BUN 98, Cr 3.75 on admission - 100 ml/hr normal saline - Continue to monitor Acute on chronic delirium; present on admission; ongoing -There is a patient has out patient benzos -Seroquel 25; can increase dose until effect -CIWA protocol -Phenobarbital 60 mg every 8 hours as needed for severe agitation -Patient has been declining over the last month and was on hospice and recommend palliative consult on Saturday for discussions of care once more medically stable -Blood and urine cultures pending Pulmonary masses; present on admission; ongoing -Diagnosed CT in October 2016 -Previous workup declined and patient placed on hospice -Patient is not medically stable for pulmonary biopsy at this time -Consider surgical or pulmonary consult for additional workup once able to discuss with patient Chronic pain -Continue home pain regimen once verified Pain Evaluation: Adequate Pain Control Resuscitation Status: DNR/DNI:Do Not Resuscitate/Intubate Attending Statement The patient was seen and examined together with Dr. Diaz on 12/29/2016 and I agree with the history, exam and plan as outlined in the note above. . Stephanie Diaz DO Dec 29, 2016 14:46 Burt Pearl MD Dec 29, 2016 17:18
[2016-12-30] VITALS (9 sets, daily range): BP systolic 114–158; BP diastolic 78–92; PULSE 88–105; RESP 16–20; O2SAT 95–99
[2016-12-30] MEDS: 0.9% Sodium Chloride 1,000 ML IV SCH ×4 (00:02→21:37)
[2016-12-30 04:42] LABS: BASOPHILS % (AUTO) 0.3 % (0-3); EOSINOPHILS % (AUTO) 3.2 % (0-5); MONOCYTES % (AUTO) 12.9 % (4-12); Mean Corpuscular Hemoglobin 29.5 pg (27.0-35.0); Mean Corpuscular Volume 87.5 fL (81-100); NEUTROPHILS % (AUTO) 65.3 % (40-74); Platelet Count 217 bil/L (150-400)
[2016-12-30] MEDS: Multivit-Miner-Folic Acid-Iron Tablet PO SCH (07:51)
--- NOTE | 2016-12-30 14:08 | PCM.PNMED ---
Subjective Date of Service Dec 30, 2016 Subjective [id number] female on hospice who presented in acute delirium with a potassium greater than 7 and some reported episodes of asymptomatic V. tach. Hospice is currently suspended. Overnight patient was very delirious and agitated, being given 25 mg in the evening did not do much to help sedate her. She remains in lower extremity restraints and agitated without being able to be comforted by nursing staff. This morning the patient is similarly delirious calling out for her who is not here. She is unable to give a review of systems. Her lab work looks much improved. Palliative this scheduling a meeting for tomorrow to discuss goals of care. She was score was reported as 19-24 Exam Vital Signs Vital Sign - Last Date Time Temp Pulse Resp B/P Pulse Ox O2 Delivery O2 Flow Rate FiO2 12/30/16 12:00 36.5 98 16 136/78 99 Room Air 12/28/16 16:51 6 Intake and Output 12/29/16 12/29/16 12/30/16 Cumulative From/Thru 15:00 23:00 07:00 12/28/16 15:35 - 12/30/16 06:27 Intake Total 2397 ml 1090 ml 5487 ml Output Total 1400 ml 1450 ml 4450 ml Balance 997 ml -360 ml 1037 ml Intake Oral 200 ml 300 ml 700 ml IV Total 2197 ml 790 ml 4787 ml Output Urine Total 1400 ml 1450 ml 4450 ml # Bowel Movements 1 0 1 Exam General extremely agitated and delirious; examined after patient fell asleep Cardiovascular: Regular rate and rhythm Respiratory: CTA with crackles Abdomen: Positive bowel sounds but not palpated Extremities: Mild pitting edema Psych: Delirious IVs and Medications Medications Reviewed: Medications were reviewed in detail Lab and Diagnostics Result Diagram: 12/30/1642012/30/16 042 X-Rays, CTs and MRIs CXR 1. No acute cardiopulmonary disease. 2. Moderate-sized hiatal hernia again noted. Dictated by: Kane Dangelo M.D. on 12/28/2016 at 16:19 CT Brain 1. No acute intracranial process. 2. Moderate atrophy and chronic microvascular ischemic changes. Dictated by: Fannie Tabares M.D. on 12/28/2016 at 14:56 Assessment & Plan 71-year-old female with a very complicated medical history really been declining over the last month and was on hospice prior to admission to the hospital who presented due to acute delirium, acute kidney injury and hyperkalemia. Patient is very delirious and combative and previously has denied additional workup. Her does not want put her on comfort care and would like her pulmonary masses worked up. Acute kidney injury, present on admission, improving. - BUN 98, Cr 3.75 on admission; today creatinine 1.16 - 100 ml/hr normal saline - Continue to monitor Acute on chronic delirium; present on admission; ongoing -Patient is using alcohol and benzodiazepines at home -Seroquel 25 increase to 50 mg twice a day which is her home dose -CIWA protocol -Phenobarbital 60 mg every 8 hours as needed for severe agitation -Patient has been declining over the last month and was on hospice and recommend palliative consult on Saturday for discussions of care once more medically stable -Blood and urine cultures negative Acute hyperkalemia in the setting of acute kidney injury; present on admission; resolved -Patient presented with a potassium 7.2 and hyperkalemia protocol was initiated -Treated with hyperkalemia protocol including: calcium gluconate, albuterol, Lasix, and insulin -receiving NS at 100 mL/hour Pulmonary masses; present on admission; ongoing -Diagnosed CT in October 2016 -Previous workup declined and patient placed on hospice -Patient is not medically stable for pulmonary biopsy at this time -Consider surgical or pulmonary consult for additional workup once able to discuss with patient Chronic pain -Continue home pain regimen once verified Disposition: Patient is severely agitated/delirious and has been declining at home over the last month. She was on hospice prior to her acute and rather quick onset of delirium. Palliative care is discussing family tomorrow. Can be discharged when placement is available. She will likely need some sort of nursing support unless she goes back on hospice. Pain Evaluation: Adequate Pain Control Resuscitation Status: DNR/DNI:Do Not Resuscitate/Intubate Attending Statement The patient was seen and examined together with Dr. Jackson on 12/30/2016 and I agree with the history, exam and plan as outlined in the note above. . Charli Jackson DO Dec 30, 2016 14:08 Burt Pearl MD Dec 31, 2016 09:10
[2016-12-31 01:59] VITALS: BP 142/90; PULSE 100; RESP 20; O2SAT 90
[2016-12-31 07:19] VITALS: BP 167/93; PULSE 99; RESP 20; O2SAT 94
[2016-12-31] MEDS: Multivit-Miner-Folic Acid-Iron Tablet PO SCH (07:55)
[2016-12-31] MEDS: 0.9% Sodium Chloride 1,000 ML IV SCH ×2 (08:21→22:37)
[2016-12-31 09:36] VITALS: PULSE 97
--- NOTE | 2016-12-31 11:03 | PCM.CONPAL ---
Date of Service Dec 31, 2016 Date of Hospital Admission: Dec 28, 2016 at 17:38 Date of Palliative Consult: Dec 31, 2016 Requesting Provider: Burt Pearl MD Reason Palliative Care Consult: Other Symptoms (delirium), Goals of Care Discussion Hospital Unit @time of consult: Progressive Care Palliative Care Recommendation Summary of palliative recommendations: -Symptom management (Pain/other) Delirium-home and here. Unable to manager fitness if due to alcohol w/d so will treat another 24 hrs and then try decreasing medications. COPD- adequate oxygenation on RA ? pulm masses vs infiltrates on past CT 6 weeks ago. Now negative CXR. Consider repeat chest CT without contrast to determine if still an issue Chronic pain- not evident- seems like agitation ARF with hyperK now resolved GOC-patient has declined aggressive intervention in the past including completing her own POLST as DNR. has changed this to FULL CODE and will need to review tomorrow. May need placement -DPOA/Advanced Directives/POLST -Family/emotional support- and daughter -Spiritual support Additional Medical Diagnoses with primary management by Hospitalist team include : Problems: Resuscitation Status Resuscitation Status: CPR: Attempt Resuscitation (per her -- will need to review tomorrow) POLST Updates/Changes POLST Discussed with: Health Care Agent ([facility]POA[facility]) . Symptom management: Delirium Pt History History of Present Illness 71-year-old female with a history of severe MR, PEs 3, CAD, hypertension, CHF, COPD, hyperlipidemia, A. fib, ventricular alcoholism, chronic pain, prior overdose, and report of multiple pulmonary masses that has not been worked up. Patient is on hospice and this morning when she became more confused hospice was suspended so she can be seen in the ED. Her states that she was yelling at him was very worked up before becoming very confused, somnolent versus lethargic, but at the same time more combative. Over the last month or so she is been deteriorating 3 days before presentation she had bradycardia episode with episode of hypotension and 70/40. When she was initially examined by the emergency department she complained of dyspnea and back pain which resolved after albuterol. Placement blood work showed relatively benign CBC, hyperkalemia, hypochloremia, and acute kidney injury with a creatinine of 3.75. Patient also had a mild hypercalcemia. Carbatrol level was checked and was low at 10.1 and alcohol is negative. Blood cultures were obtained. CT of the brain showed no acute intracranial process although there were some microvascular ischemic changes. Chest x-ray showed moderate-sized hiatal hernia otherwise was benign. Patient did have a couple runs of non-sustained, asymptomatic vtach in the ED and was treated with hyperkalemia protocol. Discussion with patient's and he wishes for the patient to continue to receive workup, including workup which was previously deferred on her pulmonary masses that were not seen on chest x-ray, but were identified on CT of the chest on 11/24/2016 From Palliative Note 11/26/16 "The patient mentioned that she was tired of hospitalizations, and tired of being made to see medical providers and seek help. She has been refusing care at home including showers even at the insistence of her daughter who was there to help. She usually is reliant on her . Her states that her medications have been changed so many times he has no idea what she is on. He also notes that she will take her medication for a few days and then decided she does not want any for a few days. Her daughter states that she sleeps through most of the day and night and is only up to go to the bathroom or have something to eat. She continues to have [id number]-1-3 BM daily, no note of blood and none at night. She has chronic SOB-rest but mostly with walking. Palliative care consultation 71 yo complex patient with multiple medical issues as noted above. She had declined aggressive intervention during her last hospital stay and had asked to go home. She acknowledged at that time that a driving force to be at home was so she could drink and smoke. She was discharged and established with hospice. She was having sx of increasing confusion and agitation and in an attempt to control this she was tried on a number of medications-often requiring substantial doses. She has remained very confused and agitated and was brought in to the hospital to evaluate and manage delirium and revoked hospice.She had been able to drink alcohol for at least part of this time before this admission. On admit- her ETOH level was 0. Past Medical History Significant PMH Noted: PMH Moderate-sever mitral valve regurgitation, cardiac cath 02/2014 with normal coronaries. Echo 01/2015 LVEF 40-45% severe MR. Hiatal hernia Cardiomegaly Hypothyroidism Reardon Colitis 05/2016 Diverticulosis Chronic insomnia Colon polyps Pneumonia hx TATE- noncompliant on CPAP [id number] Depression Anxiety 3 pulmonary embolism on warfarin History of binge alcoholism History of prolonged QT History of atrial fibrillation HTN, HLD Surgical History Right knee surgery in 1967 Cardiac cath 2011, 2013 Hysterectomy in 2003 Reports: Cholecystectomy Family History Unable to obtain as patient is delirious Social History Hx Alcohol Use: Yes (daily) Hx Substance Use: No Hx Tobacco Use: Yes (1-2 drinks per day) Smoking Status: Current Every Day Smoker Social History 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 Living Situation: lives with her - had been on hospice until this admit Spiritual Support Spiritual Support past discussion- see note 11/12 Responsive Patient Symptoms Delirium agitated vs sedated POLST at Time of Admission Previous POLST?: Yes Cardiopulmonary Resuscitation: DNR: Do Not Attempt Resuscitation POLST Discussed with: Patient Allergy Allergies Reviewed: Yes Medications Current Medications: Current Medications Phenobarbital Sodium 60 mg TID PRN IVPUSH Last administered on 12/29/16 20:26; Admin Dose 60 MG; Start 12/29/16 at 12:30 Quetiapine Fumarate 50 mg QID PO Last administered on 12/31/16 05:25; Admin Dose 50 MG; Start 12/30/16 at 11:30 Scheduled Carvedilol (Carvedilol) 6.25 Mg Tablet 6.25 MG PO BIDWM Fentanyl 12.5 mcg/hr Patch (Fentanyl 12.5 mcg/hr Patch) 1 Each Patch.td72 1 PATCH TRANSDERM Q3D Levothyroxine (Levothyroxine) 200 Mcg Tablet 200 MCG PO QAM Omeprazole (Omeprazole) 40 Mg Capsule.dr 40 MG PO QAM Potassium Chloride (Potassium Chloride) 10 Meq Capsule.er 20 MEQ PO BIDWM TAKE WITH FOOD Ranitidine (Ranitidine) 300 Mg Tablet 300 MG PO HS Spironolactone (Aldactone) 25 Mg Tablet 25 MG PO DAILY Trazodone (Trazodone) 100 Mg Tablet 100 MG PO HS Vancomycin (Vancomycin) 125 Mg Capsule 125 MG PO DAILY until 01/16/17 Warfarin Sodium (Warfarin Sodium) 5 Mg Tablet 7.5 MG PO Sat,Sun,Mon,Wed, Francesca Warfarin Sodium (Warfarin Sodium) 5 Mg Tablet 10 MG PO Sat,Tu Scheduled PRN Albuterol Neb Soln (Albuterol Neb Soln) 2.5 Mg/3 Ml Vial.neb 2.5 MG INHALATION Q4H PRN PRN For Shortness of Breath Hyoscyamine (Hyoscyamine) 0.125 Mg Tablet 0.25 MG PO Q4H PRN PRN Secretion Control Ipratropium/Albuterol Sulfate (Iprat-Albut 0.5-3(2.5) mg/3 mL Inhalant Soln) 3 Ml Ampul.neb 3 ML IH Q6 PRN PRN For Shortness of Breath Levalbuterol (Levalbuterol) 0.63 Mg/3 Ml Vial.neb 0.63 MG INHALATION Q2H PRN PRN For Shortness of Breath Lorazepam (Lorazepam) 1 Mg Tablet 1-2 MG PO Q4H PRN PRN For Anxiety Ondansetron ODT (Ondansetron ODT) 4 Mg Tab.rapdis 8 MG PO QID PRN PRN For Nausea /Vomiting Oxycodone (Roxicodone) 5 Mg Tablet 5 MG PO Q6H PRN PRN For Pain Quetiapine Fumarate (Quetiapine Fumarate) 50 Mg Tablet 50 MG PO Q4H PRN PRN For Agitation Sennosides (Senna) 8.6 Mg Tablet 1-4 TAB PO BID PRN PRN For Constipation Objective Findings Exam Vital Sign - Last Date Time Temp Pulse Resp B/P Pulse Ox O2 Delivery O2 Flow Rate FiO2 12/31/16 09:36 97 12/31/16 07:19 36.7 20 167/93 94 Room Air 12/28/16 16:51 6 Intake and Output 12/30/16 12/30/16 12/31/16 Cumulative From/Thru 15:00 23:00 07:00 12/28/16 15:35 - 12/31/16 05:54 Intake Total 400 ml 5887 ml Output Total 1200 ml 1020 ml 6670 ml Balance -800 ml -1020 ml -783 ml Intake Oral 400 ml 1100 ml IV Total 4787 ml Output Urine Total 1200 ml 1020 ml 6670 ml # Bowel Movements 3 2 6 General: Unresponsive, Chemically sedated HEENT: Mucous Membr Moist/[place]: Dysrhythmia Present Lungs: Tachypneic (shallow, sats RA 95-97) Abdomen: Soft Extremities: Edema (1+) Lab/Diagnostics Lab and Imaging results reviewed in detail in EMR. CXR- negative Patient/Family Conference Discussion/Goals of Care Discussion Patient unable due to sedation or agitation TC to who states he cannot come in due to houseworkers there. Meeting scheduled tomorrow. He does state he does not feel he can take care of his at home due to her agitation. Time spent Total time 45 minutes; >50% face to face with patient and/or family, providing counselling regarding plans and recommendations, and in care coordination with his/her medical teams. I also spent an additional [ ] minutes counseling for advanced care planning with the patient/the patients family/the surrogate decision maker. copies to: Davin Galan MD, Deborah A MD Dec 31, 2016 11:03 with the patient/the patients family/the surrogate decision maker. Peyton Michaud MD Dec 31, 2016 11:03
--- NOTE | 2016-12-31 14:58 | PCM.PNMED ---
Subjective Date of Service Dec 31, 2016 Subjective 71 year-old female on hospice who presented in acute delirium with a potassium greater than 7 and some reported episodes of asymptomatic V. tach. Hospice is currently suspended. This morning, she was sleeping during time of exam. Exam Vital Signs Vital Sign - Last Date Time Temp Pulse Resp B/P Pulse Ox O2 Delivery O2 Flow Rate FiO2 12/31/16 09:36 97 12/31/16 07:19 36.7 20 167/93 94 Room Air 12/28/16 16:51 6 Intake and Output 12/30/16 12/30/16 12/31/16 Cumulative From/Thru 15:00 23:00 07:00 12/28/16 15:35 - 12/31/16 05:54 Intake Total 400 ml 5887 ml Output Total 1200 ml 1020 ml 6670 ml Balance -800 ml -1020 ml -783 ml Intake Oral 400 ml 1100 ml IV Total 4787 ml Output Urine Total 1200 ml 1020 ml 6670 ml # Bowel Movements 3 2 6 Exam General extremely agitated and delirious; examined after patient fell asleep Cardiovascular: Grade II/ systolic murmur. Regular rate and rhythm Respiratory: Bilateral scattered crackles Abdomen: Positive bowel sounds but not palpated Extremities: Mild pitting edema bilateral lower extremity up to the knee Psych: Delirious IVs and Medications Medications Reviewed: Medications were reviewed in detail Lab and Diagnostics Result Diagram: 12/30/16 0421 12/31/16 0815 X-Rays, CTs and MRIs CXR 1. No acute cardiopulmonary disease. 2. Moderate-sized hiatal hernia again noted. Dictated by: Kane Dangelo M.D. on 12/28/2016 at 16:19 CT Brain 1. No acute intracranial process. 2. Moderate atrophy and chronic microvascular ischemic changes. Dictated by: Fannie Tabares M.D. on 12/28/2016 at 14:56 Assessment & Plan 71-year-old female with a very complicated medical history really been declining over the last month and was on hospice prior to admission to the hospital who presented due to acute delirium, acute kidney injury and hyperkalemia. Patient is very delirious and combative and previously has denied additional workup. Her does not want put her on comfort care and would like her pulmonary masses worked up. Acute on chronic encephalopathy; present on admission; ongoing -Patient is using alcohol and benzodiazepines at home -Seroquel 25 increase to 50 mg twice a day which is her home dose -CIWA protocol current score 9 -Phenobarbital 60 mg every 8 hours as needed for severe agitation -Patient has been declining over the last month and was on hospice and recommend palliative consult today for discussions of care once more medically stable -Blood and urine cultures negative Acute kidney injury, present on admission, resolved. - BUN 98, Cr 3.75 on admission; today creatinine 0.88 - Continue to monitor - Decreased normal saline to 75 ml/hr Acute hyperkalemia in the setting of acute kidney injury; present on admission; resolved -Patient presented with a potassium 7.2 and hyperkalemia protocol was initiated -Treated with hyperkalemia protocol including: calcium gluconate, albuterol, Lasix, and insulin -Received NS at 100 mL/hour now decreased to 75ml/hr Pulmonary masses; present on admission; ongoing -Diagnosed CT in October 2016 -Previous workup declined and patient placed on hospice -Patient is not medically stable for pulmonary biopsy at this time -Consider surgical or pulmonary consult for additional workup once able to discuss with patient -Repeat CT scan to reassess lung nodules Chronic pain -Continue home pain regimen once verified COPD currently stable -Continue to monitor ETOH dependence -Continue CIWA protocol -Continue ETOH cessation counseling Severe mitral regurgitation -Currently stable continue to monitor -Continue lisinopril History of PE -Continue warfarin Disposition: Patient is severely agitated/delirious and has been declining at home over the last month. She was on hospice prior to her acute and rather quick onset of delirium. Palliative care is discussing family tomorrow. Can be discharged when placement is available. She will likely need some sort of nursing support unless she goes back on hospice. Resuscitation Status: DNR/DNI:Do Not Resuscitate/Intubate Attending Statement The patient was seen and examined together with Dr. Diaz on 12/31/16 and I have added additional information to the note above. Stephanie Diaz DO Dec 31, 2016 14:57 Mercedes Pro DO Dec 31, 2016 17:45
[2016-12-31 16:40] VITALS: BP 175/95; PULSE 108; RESP 14; O2SAT 98
[2016-12-31 18:02] VITALS: BP 156/89
--- NOTE | 2016-12-31 18:04 | DRSVH ---
PROCEDURE: CT CHEST WITHOUT CONTRAST ([id number]) INDICATIONS: f/u lung nodules TECHNIQUE: Noncontrast 5 mm thick sections acquired from the pulmonary apices to the posterior costophrenic angl es. 7 mm thick coronal and sagittal MIP reformats were then acquired. For radiation dose reduction, the following was used: automated exposure control, adjustment of mA and/or kV according to patient size. COMPARISON: [facility], CT, CT CHEST WO CON, 11/24/2016, 14:46. FINDINGS: Image quality: There is motion artifact limiting evaluation. Lungs and pleura: There is interval central cavitation of a peripheral irregular nodule in the left u pper lobe measuring up to 1.9 cm. There are few small clustered ground glass nodules in the right up per lobe suggesting a mild infectious or inflammatory process. There is interval decrease in medial bibasilar consolidation compared to the prior study as well as resolution of pleural effusions. Ther e is mild septal thickening redemonstrated bilaterally suggestive of pulmonary edema. The trachea an d central airways are patent. Mediastinum: Heart size is borderline enlarged. No pericardial effusion. No mediastinal adenopathy by size criteria. Thoracic aorta and central pulmonary arteries are normal in size. Esophagus is n ormal in caliber. There is a moderate to large hiatal hernia. Bones and chest wall: No suspicious bony lesions. No vertebral body compression fractures. No axil chris or supraclavicular adenopathy by size criteria. Abdomen: Visualized upper abdomen demonstrate a small amount of perisplenic free fluid. IMPRESSION: 1. Interval central cavitation of a peripheral left upper lobe nodule. Given the prior medial bibas ilar consolidation, findings likely represent sequelae of an atypical infection such as from fungal e tiologies or atypical bacteria. Other differential considerations such as septic emboli or noninfect ious inflammatory etiologies are not excluded but are less likely. 2. Septal thickening in the lung suggesting pulmonary edema. 3. Small residual clustered ground glass nodules in the right lung suggesting a mild infectious or i nflammatory process. 4. Moderate to large hiatal hernia. 5. Small amount of perisplenic free fluid. Dictated by: Kane Dangelo M.D. on 12/31/2016 at 17:55 Approved by: Kane Dangelo M.D. on 12/31/2016 at 18:02
[2016-12-31 21:01] VITALS: BP 173/91; PULSE 106; RESP 22; O2SAT 100
[2017-01-01 05:37] VITALS: BP 166/82; PULSE 91; O2SAT 100
[2017-01-01 06:22] LABS: BASOPHILS % (AUTO) 0.4 % (0-3); EOSINOPHILS % (AUTO) 2.6 % (0-5); MONOCYTES % (AUTO) 9.6 % (4-12); Mean Corpuscular Hemoglobin 28.9 pg (27.0-35.0); Mean Corpuscular Volume 88.7 fL (81-100); NEUTROPHILS % (AUTO) 74.8 % (40-74); Platelet Count 219 bil/L (150-400)
[2017-01-01] MEDS: Multivit-Miner-Folic Acid-Iron Tablet PO SCH (08:49)
--- NOTE | 2017-01-01 09:43 | PCM.PNPALL ---
Date of Service Jan 01, 2017 Date of Hospital Admission: Dec 28, 2016 at 17:38 Date of Palliative Consult: Dec 31, 2016 Palliative Care Recommendation Summary of palliative recommendations: 01/01/17 Delirium- improved. Able to respond but remains very somnolent. Suspect much of this is medication. Reviewed consideration to decrease med dosing starting in AM. She is not decisional and if she declines placement she would then benefit from MH eval to determine if she has capacity to make that decision-since she doesn't now and hasn't for months. AUD (alcoholism)-longstanding and has consumed many emotional resources in this family. at this point it is not safe for pt to live at home-- for her or for her Abnormal chest CT-will defer to hospitalist team. Chest CT done notes R and L inflammatory/infection with less likelihood of malignancy. 1 lesion is cavitary and will defer to hospitalist to determine if need culture including for fungus or TB. may be due to aspiration, less likely PEs Code status- 's goal was always to support his 's decision as no code --status changed to reflect this. DISPOSITION: goal is for SNF. Then once improved with PT, meals and no ETOH-re- eval if she is willing to consider treatment. -Symptom management (Pain/other) Delirium-home and here. Unable to trial court judge if due to alcohol w/d so will treat another 24 hrs and then try decreasing medications. COPD- adequate oxygenation on RA ? pulm masses vs infiltrates on past CT 6 weeks ago. Now negative CXR. Consider repeat chest CT without contrast to determine if still an issue Chronic pain- not evident- seems like agitation ARF with hyperK now resolved GOC-patient has declined aggressive intervention in the past including completing her own POLST as DNR. has changed this to FULL CODE and will need to review tomorrow. May need placement -DPOA/Advanced Directives/POLST--CODE STATUS-changed to DNR/DNI which is in agreement with patients request before. POLST completed prior by pt and in EMR -Family/emotional support- and daughters -Spiritual support-addressed in past- not important for pt-past communication Additional Medical Diagnoses with primary management by Hospitalist team include : Problems: End of Life Preferences DNR/DNI/limited Disposition hopefully discharge to facility with some availability for MH services. She has declined any of this in the past. She is now not decisional Resuscitation Status Resuscitation Status: DNR/DNI:Do Not Resuscitate/Intubate (per her -- will need to review tomorrow) POLST Updates/Changes Previous POLST?: Yes Artificially Admin Nutrition: No Artifical Nutrition by Tube POLST Discussed with: Health Care Agent (DPOA[facility]) POLST Review Outcome: No Change . Advanced Care Planning Address: Code status change Symptom management: Depression, Agitation, Dyspnea, Pain, Delirium Palliative Subjective Palliative Care Daily Responde: Patient, Family/Proxy (Kevin-, 2 daughters-Janeen and Marsha and damian), Team (Melissa VILLAFANA PC and Lilian ARVIZU PC) Brief History 71 yo with hx of ETOH overuse (AUD), COPD, CHF and pulm masses now re-evaluated with chest CT. Pt had been on hospice based on frequent hospitalizations and progressive decline in status as well as her desire to do nothing about her problems. She has had delirium with sander agitation and confusion to times of just poor judgement--smoking, drinking along with multiple medications to the point of OD. Her states things were a bit confusing but seems the final instructions he was following was to give her 2 shots alcohol TID which would make her less belligerent. Family describes- calm to then angry, abusive and would be destructive. Attempts at controlling this OP failed and with multiple meds it became unclear what was causing what. She was admitted with EDITH creat3.75 now at 0.74. K at 7 now normal. She has persistent metabolic acidosis with HCO3 of 16-19. She was hospitalized and treated for ETOH w/d requiring diazepam and lorazepam for control of agitation. Last dylan she had lorazepam 2 mg IV at 2200, 0216 and 0641. She was obtunded at 8 and is now up having BF at 0930. She otherwise is on quetiapine 50 mg QID. Her daughter again notes she had been without ETOH for 4 weeks when at [facility] but as soon as she knew she was going home she started to ask for ETOH. Patient/Family Concerns requested eval of her pulm status. He has concerns that he can not manage her at home He describes her being abusive if he attempted to restrict her alcohol. Responsive Patient Symptoms Nausea: None Anxiety: Moderate Drowsiness/Sleepiness: Moderate Shortness of Breath: Moderate Constipation long hx diarrhea, freq BM's listed Delirium see HPI Objective Findings Exam Vital Sign - Last Date Time Temp Pulse Resp B/P Pulse Ox O2 Delivery O2 Flow Rate FiO2 01/01/17 05:37 36.7 91 166/82 100 Room Air 12/31/16 21:01 22 12/28/16 16:51 6 Intake and Output 12/31/16 12/31/16 01/01/17 Cumulative From/Thru 15:00 23:00 07:00 12/28/16 15:35 - 01/01/17 06:56 Intake Total 1118 ml 1007 ml 8012 ml Output Total 700 ml 650 ml 8020 ml Balance 418 ml 357 ml -8 ml Intake Oral 60 ml 150 ml 1310 ml IV Total 1058 ml 857 ml 6702 ml Output Urine Total 700 ml 650 ml 8020 ml # Bowel Movements 1 7 General: Alert, Oriented HEENT: PERRLA, Scleral Anicteric, Mucous Membr Moist/[place] Heart: Dysrhythmia Present Lungs: Tachypneic (shallow, sats RA 95-97) Abdomen: Soft Neuro: Follows Commands, Cranial Nerve 3-12 Intact (very mild L facial weakness ), Other (conversant, speech slightly slurred) Extremities: Edema (1+) Addtional Information awake for short periods then sound asleep to nearly not arousable. Lab/Diagnostics Lab and Imaging results reviewed in detail in EMR. Chest CT-L lesion now cavitated-reading raises ? of atypical or fungal source. Need also to think of possible aspiration due to her frequently altered mental status Another lesion in question but appears to be inflammatory rather than true mass. Patient/Family Conference Members Present Family Members Present Patient seen separately this AM, family conference this afternoon Medical Team Members Present? Melissa VILLAFANA PC, Karolina Luna MSW PC Discussion/Goals of Care Discussion FAMILY UNDERSTANDING OF DISEASE: Family frustrated by lack of clarity as to cause of MS changes. Last time mentally clear was probably dry time at [facility] about 5 months ago. She has never gone to rehab. Has always declined. Her family believes part of her ETOH was due to her pain and frustration from her diarrhea > 10 yrs duration. CRF with hyperkalemia- resolved. DISEASE PROGRESSION/EVIDENCE OF DECLINE: AMS biggest decline- complex with meds and ETOH SYMPTOM BURDEN: Huge and longstanding for this family due to AUD GOALS: placement in care facility and preferably with some mental health intervention HOPES/WORRIES: Time spent Total time 75 minutes; >50% face to face with patient and/or family, providing counselling regarding plans and recommendations, and in care coordination with his/her medical teams. I also spent an additional [ ] minutes counseling for advanced care planning with the patient/the patients family/the surrogate decision maker. copies to: Davin Galan MD, Deborah A MD Jan 01, 2017 09:42
[2017-01-01] MEDS: 0.9% Sodium Chloride 1,000 ML IV SCH ×2 (11:21→23:56)
[2017-01-01 15:33] VITALS: BP 169/109; PULSE 81; RESP 22; O2SAT 99
--- NOTE | 2017-01-01 15:50 | PCM.PNMED ---
Subjective Date of Service Jan 01, 2017 Exam Vital Signs Vital Sign - Last Date Time Temp Pulse Resp B/P Pulse Ox O2 Delivery O2 Flow Rate FiO2 01/01/17 15:33 36.7 81 22 169/109 99 Room Air 12/28/16 16:51 6 Intake and Output 12/31/16 12/31/16 01/01/17 Cumulative From/Thru 15:00 23:00 07:00 12/28/16 15:35 - 01/01/17 06:56 Intake Total 1118 ml 1007 ml 8012 ml Output Total 700 ml 650 ml 8020 ml Balance 418 ml 357 ml -8 ml Intake Oral 60 ml 150 ml 1310 ml IV Total 1058 ml 857 ml 6702 ml Output Urine Total 700 ml 650 ml 8020 ml # Bowel Movements 1 7 Exam I have not witnessed this patient ambulating she is oriented 1 and a standby assist Gen.-Sleeping no apparent distress. Obese disheveled female sleeping wearing diaper with Brandt in place Eyes-closed, normal lids no drainage ENT- ears normal, nose normal Neck- supple/trach midline CVS- RRR Lungs regular nonlabored GI-generous abdomen Musc- moving 4 no obvious deformity Neuro- cranial nerves II through XII intact to gross examination, nonfocal Skin- warm and dry, no rashes/lesions/wounds noted Psych-sleeping soundly not arousable to voice and gentle stimulation Lab and Diagnostics Result Diagram: 01/01/17 0555 01/01/17 0555 X-Rays, CTs and MRIs CXR 1. No acute cardiopulmonary disease. 2. Moderate-sized hiatal hernia again noted. Dictated by: Kane Dangelo M.D. on 12/28/2016 at 16:19 CT Brain 1. No acute intracranial process. 2. Moderate atrophy and chronic microvascular ischemic changes. Dictated by: Fannie Tabares M.D. on 12/28/2016 at 14:56 12-lead ECG EKG from 12/28 concurrently reviewed by Fina rate of 89, QTC 439 ms sinus rhythm LVH with secondary repolarization abnormality Old inferior infarct Anterior ST elevation probably due to LVH Additional Diagnostics CT ANGIO CHEST PULMONARY EMBOLISM: Fannie Tabares M.D. on 11/05/2016 at 16:04 1. Heterogeneous filling defects predominantly within the right upper and middle bladder lobes within the tertiary branches of the pulmonary artery most consistent with pulmonary emboli. 2. Bilateral appearance of prominent groundglass like opacities within the lungs bilaterally. These can be seen with infection or inflammation. 3. Marked interval increase in size of previously identified sub-centimeters right upper lobe nodule, concerning for neoplastic disease. In addition, the lungs demonstrate interval development of bilateral pleural effusions as well as ill-defined areas of nodular coarsening. The latter could be related to areas of edema or poorly visualized areas of nodularity partially obscured by groundglass opacities and effusions. Recommend interval followup to document resolution. Dictated by: Fannie Tabares M.D. on 11/05/2016 at 16:04 Approved by: Fannie Tabares M.D. on 11/05/2016 at 16:12 Assessment & Plan 71-year-old female with a very complicated medical history really been declining over the last month and was on hospice prior to admission to the hospital who presented due to acute delirium, acute kidney injury and hyperkalemia. Patient is very delirious and combative and previously has denied additional workup. Her does not want put her on comfort care and would like her pulmonary masses worked up. 01/01 patient new to me. She apparently has a history of alcoholism and when she is awake she wants alcohol and tobacco. Reportedly her family can no longer take her home she is abusive to mostly give her alcohol. We will work on controlling her symptoms, treating withdrawal. She has been somnolent to much so so we are going to withdraw some of the daytime medications he is lucid and coherent enough to make any decisions. For now we are also going to have interventional radiology biopsy lung masses which is apparently why she is off for them. So for resuming it I check an INR and order biopsy as workup was requested by the family who took her off of hospice and has made her a full code. Goal of care is to get her placed in SNF. Pulmonary masses; present on admission; ongoing -Reportedly family decided they wanted workup 01/01 -Diagnosed CT in October 2016 -Biopsy ordered 01/01 #PE 10/2016-we will resume warfarin after biopsy. Will use Lovenox to bridge. Hold Lovenox 01/02 in a.m. for biopsy Acute on chronic encephalopathy; present on admission; ongoing? Versus dementia and behavioral disorder -As of 01/01 patient is oversedated -We will follow JAVED, decrease Seroquel 01/01 -Patient is intermittently awake we will assess her competence as able social work/speech ordered #Chronic pain- patient is on essentially nothing in pain does not seem to be an issue yet. #BASILIA/hyperkalemia-present on admission now resolved 01/01 #COPD currently stable no action 01/01 #ETOH dependence, CIWa for withdrawl Severe mitral regurgitation Disposition: She was made full code by her family they desire workup, they decided they cannot take her home so she needs to be placed 01/01 Resuscitation Status: CPR: Attempt Resuscitation (per her -- will need to review tomorrow) Elvin Harden MD Jan 01, 2017 15:50 Elvin Harden MD Jan 01, 2017 15:50 Severe mitral regurgitation Disposition: Patient is severely agitated/delirious and has been declining at home over the last month. She was on hospice prior to her acute and rather quick onset of delirium. Palliative care is discussing family tomorrow. Can be discharged when placement is available. She will likely need some sort of nursing support unless she goes back on hospice. Resuscitation Status: CPR: Attempt Resuscitation (per her -- will need to review tomorrow) Elvin Harden MD Jan 01, 2017 15:50
--- NOTE | 2017-01-01 16:38 | PCM.PHAPRO ---
Progress Warfarin Management by Pharmacy: -Indication: afib and history of PE -Home Dose: warfarin 5mg daily -Inr Goal: 2-3 -Concurrent Anticoagulation: Enoxaparin 1mg/kg [id number] -Drug Interactions: none noted -Disease Interactions: CHF -H/H 10.5/32.2 -Platelets: 219 -Plan: Enoxaparin will be given this evening as a one time 90mg dose as plan is for a biopsy tomorrow. will be resumed as [id number] tomorrow after procedure Warfarin is to be held prior to biopsy, therefore will be initiated tomorrow afternoon. serial inr's ordered. pt's crcl ~ 57ml/min Reyna Mendez [facility] Jan 01, 2017 16:38
[2017-01-01 17:23] LABS: INR 0.96 ratio
[2017-01-01 19:43] VITALS: BP 157/101; PULSE 92; RESP 18; O2SAT 100
[2017-01-01 23:03] VITALS: BP 152/91; PULSE 96; RESP 16; O2SAT 98
[2017-01-02] MEDS: Alum-Mag Hydrox-Simeth 30 mL Suspension PO PRN (01:34)
[2017-01-02 02:50] VITALS: BP 174/111; PULSE 85; RESP 16; O2SAT 100
[2017-01-02] MEDS ORDERED: LORazepam 1 mg Tablet PO ONE (04:35)
[2017-01-02 05:57] VITALS: BP 177/103; PULSE 88; RESP 18; O2SAT 100
[2017-01-02] MEDS: Multivit-Miner-Folic Acid-Iron Tablet PO SCH (09:02)
--- NOTE | 2017-01-02 11:39 | PCM.PHAPRO ---
Progress Warfarin Management by Pharmacy: -Indication: afib and history of PE -Home Dose: warfarin 5mg daily -Inr Goal: 2-3 -Concurrent Anticoagulation: Enoxaparin 1mg/kg [id number] -Drug Interactions: none noted -Disease Interactions: CHF -H/H 10.5/32.2 on 01/01 -Platelets: 219 on 01/01 -Plan: biopsy planned for this morning was cancelled. Warfarin will be resumed/ initiated this evening with a 5mg dose and Enoxaparin 90mg subq [id number] has been continued Reyna Mendez [facility] Jan 02, 2017 11:39
--- NOTE | 2017-01-02 15:02 | PCM.PALLBR ---
Palliative Care Recommendation Summary of palliative recommendations: 01/02/1787-[id number]. Improved and tolerating less meds. Definitely not decisional.Now getting closer to her baseline AUD- She again declines any possibility for rehab. She has no insight. She probably still has moderate amt of delirium. Abn Chest CT- reviewed with her again over the phone this AM since he was contacted yest about eval. He does not think it appropriate to evaluate this for malignancy since his has repeatedly declined any treatment if that were to occur. It may make sense to get sputum and labs for possible infectious cause such as aspiration, TB, fungal etiology. Her continues to believe she needs placement. 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 For now she would benefit from PT at [facility] If pt declines placement-I think she would need eval for decisional capacity. 01/01/17 Delirium- improved. Able to respond but remains very somnolent. Suspect much of this is medication. Reviewed consideration to decrease med dosing starting in AM. She is not decisional and if she declines placement she would then benefit from eval to determine if she has capacity to make that decision-since she doesn't now and hasn't for months. AUD (alcoholism)-longstanding and has consumed many emotional resources in this family. at this point it is not safe for pt to live at home-- for her or for her Abnormal chest CT-will defer to hospitalist team. Chest CT done notes R and L inflammatory/infection with less likelihood of malignancy. 1 lesion is cavitary and will defer to hospitalist to determine if need culture including for fungus or TB. may be due to aspiration, less likely PEs Code status- 's goal was always to support his 's decision as no code --status changed to reflect this. DISPOSITION: goal is for SNF. Then once improved with PT, meals and no ETOH-re- eval if she is willing to consider treatment. -Symptom management (Pain/other) Delirium-home and here. Unable to patrol judge if due to alcohol w/d so will treat another 24 hrs and then try decreasing medications. COPD- adequate oxygenation on RA ? pulm masses vs infiltrates on past CT 6 weeks ago. Now negative CXR. Consider repeat chest CT without contrast to determine if still an issue Chronic pain- not evident- seems like agitation ARF with hyperK now resolved GOC-patient has declined aggressive intervention in the past including completing her own POLST as DNR. has changed this to FULL CODE and will need to review tomorrow. May need placement -DPOA/Advanced Directives/POLST--CODE STATUS-changed to DNR/DNI which is in agreement with patients request before. POLST completed prior by pt and in EMR -Family/emotional support- and daughters -Spiritual support-addressed in past- not important for pt-past communication Additional Medical Diagnoses with primary management by Hospitalist team include : Problems: End of Life Preferences DNR/DNI/limited Goals of Care Delirium improved. Goal for placement Ideally eventual inpatient treatment for AUD but would need pt agreement. Reviewed with family that some of her encephalopathy may become irreversible. Disposition hopefully discharge to facility with some availability for MH services. She has declined any of this in the past. She is now not decisional Resuscitation Status Resuscitation Status: DNR/DNI:Do Not Resuscitate/Intubate (per her -- will need to review tomorrow) POLST Updates/Changes Previous POLST?: Yes Artificially Admin Nutrition: No Artifical Nutrition by Tube POLST Discussed with: Health Care Agent ([facility]) POLST Review Outcome: No Change . Symptom management: Depression, Agitation, Delirium Total time 50 minutes; >50% face to face with patient and/or family, providing counselling regarding plans and recommendations, and in care coordination with his/her medical teams. Interview with patient, discussion with and CM and Dr. Harden- hopsitalist I also spent an additional [ ] minutes counseling for advanced care planning with the patient/the patients family/the surrogate decision maker. copies to: Davin Galan MD Palliative Brief Note Date of Service Jan 02, 2017 . 71 yo admitted with persistent AMS/confusion/agitation and belligerence. Attempts to manage OP not successful. Family described pt as abusive verbally and physically as well as destructive- denise if angry because they would not get her ETOH on demand Pt had overdose at home with taking her bottle of haloperidal and her narcotics to control her sx of anxiety. This had to be reversed with small amt of narcan at home under hospice guidance She is now day 6 with a negative ETOH level on admit. Pt awaked this AM stating she wanted some vodka- it is the only thing that "settles" her. Patient does confirm that she wishes DNR/DNI and no feeding tub. She reiterates that she does not want anything done O: agitated, tearful, bitter, angry. blames her for hospital stay as well as accusing him of being abusive particularly in the past 3 weeks. She has no recall of any details of past 3 weeks on questioning. She states she has no interest in ETOH treatment or transfer to SNF. She feels her family is against her-"I don't even have a family" then cries when I mention her granddaughter She states she has never had trouble with ETOH-including w/d---reminded she just went through probable ETOH w/d for past 5+ days. Peyton Michaud MD Jan 02, 2017 15:02
[2017-01-02 17:15] VITALS: BP 162/96; PULSE 77; RESP 18; O2SAT 99
--- NOTE | 2017-01-02 18:43 | PCM.PNMED ---
Subjective Date of Service Jan 02, 2017 Subjective Patient does not maintain complaints of chest pain, dyspnea, nausea or vomiting Exam Vital Signs Vital Sign - Last Date Time Temp Pulse Resp B/P Pulse Ox O2 Delivery O2 Flow Rate FiO2 01/02/17 17:15 36.2 77 18 162/96 99 Room Air 12/28/16 16:51 6 Intake and Output 01/01/17 01/01/17 01/02/17 Cumulative From/Thru 15:00 23:00 07:00 12/28/16 15:35 - 01/02/17 04:38 Intake Total 1234 ml 213 ml 9459 ml Output Total 600 ml 725 ml 9345 ml Balance 634 ml -512 ml 114 ml Intake Oral 400 ml 213 ml 1923 ml IV Total 834 ml 7536 ml Output Urine Total 600 ml 575 ml 9195 ml Stool Total 150 ml 150 ml # Bowel Movements 1 8 Exam I witnessed this patient ambulating she is oriented 1 and a standby assist Gen.-Awake and oriented and pleasant. Difficult to keep focused though. Eyes-closed, normal lids no drainage ENT- ears normal, nose normal Neck- supple/trach midline CVS- RRR Lungs regular nonlabored GI-generous abdomen Musc- moving 4 no obvious deformity Neuro- cranial nerves II through XII intact to gross examination, nonfocal Skin- warm and dry, no rashes/lesions/wounds noted Psych pleasant and/appropriate with me Lab and Diagnostics Result Diagram: 01/01/17 0555 01/01/17 0555 Microbiology Urine/blood negative from 12/28 and 12/29 X-Rays, CTs and MRIs CXR 1. No acute cardiopulmonary disease. 2. Moderate-sized hiatal hernia again noted. Dictated by: Kane Dangelo M.D. on 12/28/2016 at 16:19 CT Brain 1. No acute intracranial process. 2. Moderate atrophy and chronic microvascular ischemic changes. Dictated by: Fannie Tabares M.D. on 12/28/2016 at 14:56 12-lead ECG EKG from 12/28 concurrently reviewed by Fina rate of 89, QTC 439 ms sinus rhythm LVH with secondary repolarization abnormality Old inferior infarct Anterior ST elevation probably due to LVH Additional Diagnostics CT CHEST WITHOUT CONTRAST: Kane Dangelo M.D. on 12/31/2016 at 17:55 1. Interval central cavitation of a peripheral left upper lobe nodule. Given the prior medial bibasilar consolidation, findings likely represent sequelae of an atypical infection such as from fungal etiologies or atypical bacteria. Other differential considerations such as septic emboli or noninfectious inflammatory etiologies are not excluded but are less likely. 2. Septal thickening in the lung suggesting pulmonary edema. 3. Small residual clustered ground glass nodules in the right lung suggesting a mild infectious or inflammatory process. 4. Moderate to large hiatal hernia. 5. Small amount of perisplenic free fluid. Dictated by: Kane Dangelo M.D. on 12/31/2016 at 17:55 CT ANGIO CHEST PULMONARY EMBOLISM: Fannie Tabares M.D. on 11/05/2016 at 16:04 1. Heterogeneous filling defects predominantly within the right upper and middle bladder lobes within the tertiary branches of the pulmonary artery most consistent with pulmonary emboli. 2. Bilateral appearance of prominent groundglass like opacities within the lungs bilaterally. These can be seen with infection or inflammation. 3. Marked interval increase in size of previously identified sub-centimeters right upper lobe nodule, concerning for neoplastic disease. In addition, the lungs demonstrate interval development of bilateral pleural effusions as well as ill-defined areas of nodular coarsening. The latter could be related to areas of edema or poorly visualized areas of nodularity partially obscured by groundglass opacities and effusions. Recommend interval followup to document resolution. Dictated by: Fannie Tabares M.D. on 11/05/2016 at 16:04 Approved by: Fannie Tabares M.D. on 11/05/2016 at 16:12 Assessment & Plan 71-year-old female with a very complicated medical history really been declining over the last month and was on hospice prior to admission to the hospital who presented due to acute delirium, acute kidney injury and hyperkalemia. Patient is very delirious and combative and previously has denied additional workup. Her does not want put her on comfort care and would like her pulmonary masses worked up. 01/01 patient new to me. She apparently has a history of alcoholism and when she is awake she wants alcohol and tobacco. Reportedly her family can no longer take her home she is abusive to mostly give her alcohol. We will work on controlling her symptoms, treating withdrawal. She has been somnolent to much so so we are going to withdraw some of the daytime medications he is lucid and coherent enough to make any decisions. For now we are also going to have interventional radiology biopsy lung masses which is apparently why she is off for them. So for resuming it I check an INR and order biopsy as workup was requested by the family who took her off of hospice and has made her a full code. Goal of care is to get her placed in SNF. 01/02 patient is much more awake today. I am discontinuing the diazepam she does have episodes that are prolonged sedation. I would prefer shorter acting lorazepam for now and Seroquel for symptomatic control. I have ordered sputum for AFB and fungus cultures and sensitivities to address concerns of the cavernous lesion noted on the CT scan 12/31. We will leave signout family has desired pulmonary consult. They know the patient would not want to be treated for cancer however they would have her treated for tuberculosis or fungus. Pulmonary masses; present on admission; ongoing -Reportedly family decided they wanted workup 01/01 -Diagnosed CT in October 2016 -Biopsy ordered 01/01 family declined. Warfarin restarted. -01/02I her family was interested in pursuing a pulmonary consult regarding the mass/cavitating lesion noted on 12/31 CT. Will order AFB and fungal cultures as these are potential etiologies other than cancer that are curable that they might pursue if they came back positive. #PE 10/2016-we will resume warfarin after biopsy. Will use Lovenox to bridge. Hold Lovenox 01/02 in a.m. for biopsy Acute on chronic encephalopathy; present on admission; ongoing? Versus dementia and behavioral disorder -As of 01/01 patient is oversedated -We will follow CIWA, decrease Seroquel 01/01 -Patient is intermittently awake we will assess her competence as able social work/speech ordered #Chronic pain- patient is on essentially nothing in pain does not seem to be an issue yet. #BASILIA/hyperkalemia-present on admission now resolved 01/01 #COPD currently stable no action 01/01 #ETOH dependence, CIWa for withdrawl Severe mitral regurgitation Disposition: She was made full code by her family they desire workup, they decided they cannot take her home so she needs to be placed 01/01 Resuscitation Status: DNR/DNI:Do Not Resuscitate/Intubate (per her -- will need to review tomorrow) Elvin Harden MD Jan 02, 2017 18:43
[2017-01-02 20:27] VITALS: BP 153/79; PULSE 74; RESP 18; O2SAT 96
[2017-01-03 00:13] VITALS: BP 162/94; PULSE 72; RESP 18; O2SAT 96
[2017-01-03 04:26] VITALS: BP 178/100; PULSE 79; RESP 18; O2SAT 98
[2017-01-03 08:04] LABS: INR 1.01 ratio
--- NOTE | 2017-01-03 09:16 | PCM.PHAPRO ---
Progress Warfarin Management by Pharmacy: -Indication: afib and history of PE -Home Dose: warfarin 5mg daily -Inr Goal: 2-3 -Concurrent Anticoagulation: Enoxaparin 1mg/kg [id number] -Drug Interactions: none noted -Disease Interactions: CHF -H/H 10.5/32.2 on 01/01 -Platelets: 219 on 01/01-Neto 7-Neto 8-Neto 0.96 1 1.01 0.04 0.01 NONE 5MG 7MG -Plan: Day 2 of warfarin management. Inr remains subtherapeutic today at 1.01. will give a one time dose this evening of warfarin 7mg. will order a serum creatinine for tomorrow am to check clearance while pt is receiving enoxaparin for bridging Reyna Mendez [facility] Jan 03, 2017 09:16
[2017-01-03] MEDS: Multivit-Miner-Folic Acid-Iron Tablet PO SCH (09:34)
[2017-01-03 10:20] VITALS: BP 167/87; PULSE 80; RESP 18; O2SAT 98
[2017-01-03] MEDS ORDERED: Haloperidol 5 mg/mL Inj IM PRN (12:55)
--- NOTE | 2017-01-03 17:50 | PCM.PNMED ---
Subjective Date of Service Jan 03, 2017 Subjective Denies any new issues/complaints Exam Vital Signs Vital Sign - Last Date Time Temp Pulse Resp B/P Pulse Ox O2 Delivery O2 Flow Rate FiO2 01/03/17 10:20 36.6 80 18 167/87 98 Room Air 12/28/16 16:51 6 Intake and Output 01/02/17 01/02/17 01/03/17 Cumulative From/Thru 15:00 23:00 07:00 12/28/16 15:35 - 01/03/17 06:11 Intake Total 860 ml 237 ml 82513 ml Output Total 500 ml 450 ml 65808 ml Balance 360 ml -213 ml 261 ml Intake Oral 850 ml 237 ml 3010 ml IV Total 10 ml 7546 ml Output Urine Total 500 ml 450 ml 81471 ml Stool Total 150 ml # Bowel Movements 3 11 General: Alert, Cooperative, No Acute Distress Head: Normal Eyes: Scleral Anicteric Nose: Mucous Membr Moist/[place] Mouth: Mucous Membr Moist/[place] Neck: Supple Chest & Lungs: Chest Wall Normal, Clear to auscultation & percussion Cardiovascular: Regular Rate/Rhythm Pulses: NL carotid, radial, femoral, DP, PT Abdomen: Non-tender, Non-distended, Normoactive bowel tones, Soft Extremities: No cyanosis/clubbing/edma bilat Neurological: Grossly Neurologically Intact, Normal Speech IVs and Medications Medications Reviewed: Medications were reviewed in detail Lab and Diagnostics Result Diagram: 01/01/17 0555 01/01/17 0555 Microbiology Urine/blood negative from 12/28 and 12/29 X-Rays, CTs and MRIs CXR 1. No acute cardiopulmonary disease. 2. Moderate-sized hiatal hernia again noted. Dictated by: Kane Dangelo M.D. on 12/28/2016 at 16:19 CT Brain 1. No acute intracranial process. 2. Moderate atrophy and chronic microvascular ischemic changes. Dictated by: Fannie Tabares M.D. on 12/28/2016 at 14:56 12-lead ECG EKG from 12/28 concurrently reviewed by Fina rate of 89, QTC 439 ms sinus rhythm LVH with secondary repolarization abnormality Old inferior infarct Anterior ST elevation probably due to LVH Additional Diagnostics CT CHEST WITHOUT CONTRAST: Kane Dangelo M.D. on 12/31/2016 at 17:55 1. Interval central cavitation of a peripheral left upper lobe nodule. Given the prior medial bibasilar consolidation, findings likely represent sequelae of an atypical infection such as from fungal etiologies or atypical bacteria. Other differential considerations such as septic emboli or noninfectious inflammatory etiologies are not excluded but are less likely. 2. Septal thickening in the lung suggesting pulmonary edema. 3. Small residual clustered ground glass nodules in the right lung suggesting a mild infectious or inflammatory process. 4. Moderate to large hiatal hernia. 5. Small amount of perisplenic free fluid. Dictated by: Kane Dangelo M.D. on 12/31/2016 at 17:55 CT ANGIO CHEST PULMONARY EMBOLISM: Fannie Tabares M.D. on 11/05/2016 at 16:04 1. Heterogeneous filling defects predominantly within the right upper and middle bladder lobes within the tertiary branches of the pulmonary artery most consistent with pulmonary emboli. 2. Bilateral appearance of prominent groundglass like opacities within the lungs bilaterally. These can be seen with infection or inflammation. 3. Marked interval increase in size of previously identified sub-centimeters right upper lobe nodule, concerning for neoplastic disease. In addition, the lungs demonstrate interval development of bilateral pleural effusions as well as ill-defined areas of nodular coarsening. The latter could be related to areas of edema or poorly visualized areas of nodularity partially obscured by groundglass opacities and effusions. Recommend interval followup to document resolution. Dictated by: Fannie Tabares M.D. on 11/05/2016 at 16:04 Approved by: Fannie Tabares M.D. on 11/05/2016 at 16:12 Assessment & Plan 71-year-old female with a history of severe MR, PEs 3, CAD, hypertension, CHF, COPD, hyperlipidemia, A. fib, ventricular alcoholism, chronic pain, prior overdose, and report of multiple pulmonary masses that has not been worked up. Patient was on hospice and this morning when she became more confused hospice was suspended so she can be seen in the ED. # Acute kidney injury, present on admission. Resolved - Resolved with IVF. - Avoid nephrotoxic meds - Followup pending goals of care # Acute hyperkalemia, present on admission. Resolved. - Patient presented with a potassium 7.2 and hyperkalemia protocol was initiated - Followup pending goals of care # Acute on chronic encephalopathy versus dementia and behavioral disorder; present on admission; ongoing - Continue with supportive care including prn Ativan and Seroquel - Soft restraints as needed for patient's own safety # Pulmonary masses; present on admission; ongoing - Previous workup declined and patient placed on hospice - Doubt if patient would be medically stable for pulmonary biopsy at this time - Consider pulmonology consult pending further clarification of goals of care - Followup pending AFB and fungal cultures # Chronic pain - Continue with supportive care # History of pulmonary embolism on 10/2016 - Continue with Warfarin after possible biopsy. Will use Lovenox to bridge. # Goals of care - Appreciate palliative care consult. Will followup with recommendations. Dispo: 2-4 days Resuscitation Status: DNR/DNI:Do Not Resuscitate/Intubate (per her -- will need to review tomorrow) Nicolas Rendon Jan 03, 2017 17:50 #BASILIA/hyperkalemia-present on admission now resolved 01/01 #COPD currently stable no action 01/01 #ETOH dependence, CIWa for withdrawl Severe mitral regurgitation Disposition: She was made full code by her family they desire workup, they decided they cannot take her home so she needs to be placed 01/01 Resuscitation Status: DNR/DNI:Do Not Resuscitate/Intubate (per her -- will need to review tomorrow) Nicolas Rendon Jan 03, 2017 17:50
[2017-01-03 19:31] VITALS: BP 164/102; PULSE 79; RESP 18; O2SAT 98
[2017-01-04 08:00] VITALS: BP 166/91; PULSE 74; RESP 22; O2SAT 97
[2017-01-04 08:21] LABS: INR 1.06 ratio
[2017-01-04] MEDS: Multivit-Miner-Folic Acid-Iron Tablet PO SCH ×2 (08:24→08:30)
--- NOTE | 2017-01-04 13:45 | PCM.PHAPRO ---
Progress WARFARIN DOSING PER PHARMACY [facility] DFF Date Jan 02Jan 03Jan 04 INR 0.96 1 1.01 1.06 INR change 0.04 0.01 0.05 Warf Dose NONE 5MG 7MG 7 A/P -Subtherapeutic INR. Hx of non-adherence due to hospice status. -Will continue with warfarin 7mg tonight which is higher than home dose. Jd Wu, PharmD Jd Wu Jan 04, 2017 13:45
--- NOTE | 2017-01-04 15:23 | PCM.PALLBR ---
Palliative Care Recommendation 71-year-old female with history of COPD, systolic CHF with severe MR (not amenable to mechanical intervention) history of multiple PEs as well as nodularities on chest imaging- admitted with intractable delirium and now with progression of chest nodule to cavitary lesion. Summary of palliative recommendations: 01/04/17- psychiatry consultation for their recommendations for medication for her severe/intractable delirium. Case discussed by phone with Dr. Mayers. For now, continue medications put in place by hospitalist team. Per my conversation with dry cleaning manager, he doubts bacterial process, and suspects mycobacterial or fungal process. Serologic studies pending. I attempted to contact her by phone today, left messages for him but have never heard back. Need to review his and the rest of the family's wishes for ongoing aggressive evaluation/care, versus return to hospice status- they have been ambivalent/inconsistent in terms of their wishes in the past. CODE STATUS- 's goal was always to support his 's decision as no code /DO NOT RESUSCITATE/DO NOT INTUBATE --status changed to reflect this. DISPOSITION: goal is for SNF. Then once improved with PT, meals and no ETOH-re- eval if she is willing to consider treatment. Her alcoholism is longstanding and has consumed many emotional resources in this family. at this point it is not safe for pt to live at home-- for her or for her -Family/emotional support- and daughters -Spiritual support-addressed in past- not important for pt-past communication Additional Medical Diagnoses with primary management by Hospitalist team include : # Acute kidney injury, present on admission. Resolved # Acute hyperkalemia, present on admission. Resolved. # Acute on chronic encephalopathy versus dementia and behavioral disorder; present on admission; ongoing # Pulmonary masses; present on admission; ongoing # Chronic pain # History of pulmonary embolism on 10/2016 Problems: End of Life Preferences DNR/DNI/limited Disposition To be determined Resuscitation Status Resuscitation Status: DNR/DNI:Do Not Resuscitate/Intubate (per her -- will need to review tomorrow) POLST Updates/Changes Previous POLST?: Yes Artificially Admin Nutrition: No Artifical Nutrition by Tube POLST Discussed with: Health Care Agent ([facility]) POLST Review Outcome: No Change . Pain: None Symptom management: Delirium Total time 30 minutes; >50% face to face with patient and/or family, providing counselling regarding plans and recommendations, and in care coordination with her medical teams. Palliative Brief Note Date of Service Jan 04, 2017 . Contacted by medicine service requested revisit by palliative medicine. Case discussed with hospitalist. Patient with recurrent delirium over the last several days, difficult to manage. Subject of several Code Greys. Reviewed records in EMR in detail. Spoke with her pulmonary medicine aviation consultant regarding his impressions and recommendations regarding her chest findings. Mj Kendrick MD Jan 04, 2017 15:23 counselling regarding plans and recommendations, and in care coordination with his/her medical teams. I also spent an additional [ ] minutes counseling for advanced care planning with the patient/the patients family/the surrogate decision maker. Palliative Brief Note Date of Service Jan 04, 2017 . Contacted by medicine service requested revisit by palliative medicine. Case discussed with hospitalist. Patient with recurrent delirium over the last several days, difficult to manage. Subject of several Code Greys. Reviewed records in EMR in detail. Spoke with her pulmonary medicine aviation consultant regarding his impressions and recommendations regarding her chest findings. Mj Kendrick MD Jan 04, 2017 15:23
--- NOTE | 2017-01-04 16:48 | PCM.PNMED ---
Subjective Date of Service Jan 04, 2017 Subjective Denies any new issues/complaints Exam Vital Signs Vital Sign - Last Date Time Temp Pulse Resp B/P Pulse Ox O2 Delivery O2 Flow Rate FiO2 01/04/17 08:00 36.4 74 22 166/91 97 Room Air Intake and Output 01/03/17 01/03/17 01/04/17 Cumulative From/Thru 15:00 23:00 07:00 12/28/16 15:35 - 01/04/17 06:33 Intake Total 1000 ml 683 ml 33663 ml Output Total 1650 ml 11395 ml Balance -650 ml 683 ml 294 ml Intake Oral 1000 ml 683 ml 4693 ml IV Total 7546 ml Output Urine Total 600 ml 25730 ml Stool Total 1050 ml 1200 ml # Voids 5 3 8 # Bowel Movements 3 2 16 Exam General: Alert, No Acute Distress Head: Normal Eyes: Scleral Anicteric Nose: Mucous Membr Moist/[place] Mouth: Mucous Membr Moist/[place] Neck: Supple Chest & Lungs: Chest Wall Normal, Clear to auscultation bilat Cardiovascular: Regular Rate/Rhythm Abdomen: Non-tender, Non-distended, Normoactive bowel tones, Soft Extremities: No cyanosis/clubbing/edema bilat Neurological: Grossly Neurologically Intact IVs and Medications Medications Reviewed: Medications were reviewed in detail Lab and Diagnostics Result Diagram: 01/01/17 0555 01/04/17 0745 Microbiology Urine/blood negative from 12/28 and 12/29 X-Rays, CTs and MRIs CXR 1. No acute cardiopulmonary disease. 2. Moderate-sized hiatal hernia again noted. Dictated by: Kane Dangelo M.D. on 12/28/2016 at 16:19 CT Brain 1. No acute intracranial process. 2. Moderate atrophy and chronic microvascular ischemic changes. Dictated by: Fannie Tabares M.D. on 12/28/2016 at 14:56 12-lead ECG EKG from 12/28 concurrently reviewed by Fina rate of 89, QTC 439 ms sinus rhythm LVH with secondary repolarization abnormality Old inferior infarct Anterior ST elevation probably due to LVH Additional Diagnostics CT CHEST WITHOUT CONTRAST: Kane Dangelo M.D. on 12/31/2016 at 17:55 1. Interval central cavitation of a peripheral left upper lobe nodule. Given the prior medial bibasilar consolidation, findings likely represent sequelae of an atypical infection such as from fungal etiologies or atypical bacteria. Other differential considerations such as septic emboli or noninfectious inflammatory etiologies are not excluded but are less likely. 2. Septal thickening in the lung suggesting pulmonary edema. 3. Small residual clustered ground glass nodules in the right lung suggesting a mild infectious or inflammatory process. 4. Moderate to large hiatal hernia. 5. Small amount of perisplenic free fluid. Dictated by: Kane Dangelo M.D. on 12/31/2016 at 17:55 CT ANGIO CHEST PULMONARY EMBOLISM: Fannie Tabares M.D. on 11/05/2016 at 16:04 1. Heterogeneous filling defects predominantly within the right upper and middle bladder lobes within the tertiary branches of the pulmonary artery most consistent with pulmonary emboli. 2. Bilateral appearance of prominent groundglass like opacities within the lungs bilaterally. These can be seen with infection or inflammation. 3. Marked interval increase in size of previously identified sub-centimeters right upper lobe nodule, concerning for neoplastic disease. In addition, the lungs demonstrate interval development of bilateral pleural effusions as well as ill-defined areas of nodular coarsening. The latter could be related to areas of edema or poorly visualized areas of nodularity partially obscured by groundglass opacities and effusions. Recommend interval followup to document resolution. Dictated by: Fanine Tabares M.D. on 11/05/2016 at 16:04 Approved by: Fannie Tabares M.D. on 11/05/2016 at 16:12 Assessment & Plan 71-year-old female with a history of severe MR, PEs 3, CAD, hypertension, CHF, COPD, hyperlipidemia, A. fib, ventricular alcoholism, chronic pain, prior overdose, and report of multiple pulmonary masses that has not been worked up. Patient was on hospice and this morning when she became more confused hospice was suspended so she can be seen in the ED. # Acute kidney injury, present on admission. Resolved - Resolved with IVF. - Avoid nephrotoxic meds - Followup pending goals of care # Acute on chronic encephalopathy versus dementia and behavioral disorder; present on admission; ongoing - Continue with supportive care including prn Ativan and Seroquel - Soft restraints as needed for patient's own safety - Patient reportedly using alcohol and benzodiazepines at home - Continue CIWA protocol - Phenobarbital 60 mg every 8 hours as needed for severe agitation - Psychiatry consulted. will followup with recs # Acute hyperkalemia, present on admission. Resolved. - Patient presented with a potassium 7.2 and hyperkalemia protocol was initiated - Followup pending goals of care # Pulmonary masses; present on admission; ongoing - Previous workup declined and patient placed on hospice - Pulmonology consulted today. Will followup with recommendations - Followup pending AFB and fungal cultures # Chronic pain - Continue with supportive care # History of pulmonary embolism on 10/2016 - Resume Warfarin (dose per pharmacy) given no plan for biopsy. Will use Lovenox to bridge. # Goals of care - Appreciate palliative care consult. Will followup with recommendations. Disposition: Patient is severely agitated/delirious and has been declining at home over the last month. She was on hospice prior to her acute and rather quick onset of delirium. Palliative care is discussing family tomorrow. Can be discharged when placement is available. She will likely need some sort of nursing support unless she goes back on hospice. Resuscitation Status: DNR/DNI:Do Not Resuscitate/Intubate (per her -- will need to review tomorrow) Nicolas Rendon Jan 04, 2017 16:48
[2017-01-04 19:15] VITALS: BP 142/92; PULSE 85; RESP 22; O2SAT 97
[2017-01-05 05:35] VITALS: BP 160/80; PULSE 60; RESP 24; O2SAT 96
[2017-01-05 06:56] LABS: BASOPHILS % (AUTO) 0.9 % (0-3); EOSINOPHILS % (AUTO) 5.6 % (0-5); MONOCYTES % (AUTO) 12.1 % (4-12); Mean Corpuscular Hemoglobin 28.7 pg (27.0-35.0); Mean Corpuscular Volume 89.8 fL (81-100); NEUTROPHILS % (AUTO) 52.6 % (40-74); Platelet Count 187 bil/L (150-400)
[2017-01-05 07:19] LABS: Magnesium 1.6 mg/dL (1.6-2.6)
[2017-01-05 07:47] LABS: INR 1.1 ratio
[2017-01-05] MEDS: Multivit-Miner-Folic Acid-Iron Tablet PO SCH (08:41)
[2017-01-05 09:34] VITALS: BP 131/90; PULSE 80; RESP 20; O2SAT 97
--- NOTE | 2017-01-05 11:48 | CONS ---
[address] [address] CONSULTATION REPORT PATIENT: VENANCIO GOMEZ : 1945 MR#: [id number] ADMIT: 12/28/2016 JOB ID: [id number] DATE OF SERVICE: 01/04/2017 PULMONARY CONSULTATION: REASON FOR CONSULTATION: Cavitary nodule, left upper lobe. HISTORY OF ILLNESS: The patient is a chronically ill 71-year-old nursing facility resident who was brought to the [facility] for altered mental status on December 28. She had been at the facility on hospice status but this was reversed by family and she was brought to the hospital to determine a cause for her altered mental status and also because of family's expressed interest in working up her previously recognized pulmonary nodule. The patient herself is a very poor historian. Her speech is slow and slurred and she has long latencies. The exact cause for her encephalopathy at this point on auscultation is not clear, although reportedly she is less encephalopathic today than she has been during the earlier part of this admission. She knows that she is in the hospital. She affirms visits to [place] and [facility] in the past. She has never been outside of the [place], visited [place] or [place]. She has no known contact with patients with active tuberculosis and no history of previous positive skin testing. PAST MEDICAL HISTORY: 1. Chronic systolic cardiomyopathy. 2. Severe mitral regurgitation. 3. Alcoholism. 4. Anxiety disorder. 5. Multiple pulmonary emboli on Coumadin. 6. History of atrial fibrillation. 7. History of hypertension. 8. Dyslipidemia. 9. History of gastroesophageal reflux disease with hiatal hernia. PAST SURGICAL HISTORY: 1. Heart catheterization. 2. Hysterectomy. 3. Cholecystectomy. FAMILY HISTORY: Not obtainable. SOCIAL HISTORY: She is . Reportedly she was still drinking at the care facility. She is an ongoing current smoker. REVIEW OF SYSTEMS: Quite limited but largely negative. She denied fevers, chills, headaches, dyspnea. She has poor appetite. Surprisingly she had relatively few complaints. I think that is largely a reflection of her degree of continued encephalopathy. PHYSICAL EXAMINATION: This is a chronically ill woman who appears substantially older than her stated age who looks mildly jaundiced. Her blood pressure is 140/90, heart rate is 75 and regular, respirations are 20. She is and has been afebrile since admission and her O2 saturation is 97% on room air. HEENT examination: Conjunctivae are non injected. Gaze appears conjugate. Pupils are equal at 5 mm. The visible oropharynx is dry but there is no ulceration or exudate. The neck is free of any palpable adenopathy. Neck veins appear flat. Trachea appears midline. By palpation I cannot detect any thyroid tissue. On inspection her chest shows symmetric rise. On auscultation she has decreased breath sounds at both lung bases extending one third of the way up. There is no wheeze, rale or rhonchi heard. Cardiac examination: Regular rhythm. Normal S1, S2. Positive S4. Positive 2/6 holosystolic murmur heard extending from apex to the left axilla. No third heart sound. Her abdomen is soft and nontender. Liver edge not detectable. Questionable fluid wave. No mass tenderness. No bruits. Extremities: She has pallor of the nail beds. No significant nail changes. No synovitis. No cyanosis. Extremities are warm with 2+ radial pulse and 1+ bilateral dorsalis pedis pulse. There is trace lower extremity edema bilaterally. DATABASE: Per the electronic medical record. Chest CT scans from October of 2015, October of 2016 and this admission are all personally reviewed. The earliest available CT scan shows a small subcentimeter noncalcified solid density in the left upper lobe. The repeat imaging in October of this year showed interval growth of this nodule but on current imaging this has become cavitary with a very thin wall. Some of her earlier studies showed evidence of pulmonary edema although none is present on her most recent study but shows the cavitary nodule in the left upper lobe. LABORATORIES: Show a CBC with a hemoglobin of 10, hematocrit 32, WBC is 5 and 219,000 platelets. Coags have been normal including today when her ProTime was 11.4 and INR was 1.06. Last chemistries were on January 01, 2017 and show a sodium 144, potassium 3.5, chloride of 113, total CO2 of 19, BUN of 16, creatinine 0.74. Random glucose of 125. Total calcium 9.6, with low total albumin of 56 and low albumin of 3.0. Transaminases are uniformly normal. IMPRESSION: Solitary cavitary nodule left upper lobe. The thin-walled nature of this lesion should lead to consideration of infection with mycobacterial organisms such as MTB or atypical mycobacterial species in addition to fungal infections such as coccidioidomycosis which can form a nodule that subsequently cavitates to form a thin-walled cyst. The thin nature of the cavity's moctezuma should shift focus away from malignancy but cavitating malignancies can certainly appear cyst-like with thin moctezuma and so we cannot definitively exclude this based just on CT appearance. Clearly she has risk factors for malignancy with her age and long smoking history. She has no particular risks for MTB such as exposures to infected individuals, travel or incarceration. She is living in a nursing facility but I believe she had this lesion before she became a shelter resident and I do not think that she would count as a risk factor in her case for MTB. A solitary nodule which over 14 months grew and then cavitated would not be consistent with Allison's. Similarly, bacterial infection would not present in this indolent, yet slowly progressive fashion. She does have a history of previous pulmonary emboli in the past, but the appearance of this is not consistent with a pulmonary infarction which is another cause of cavitation and a 14 month evolution documented on her CT scans would not be consistent with a pulmonary infarction as well. In summary, this chronically ill smoker with a history of cardiac, renal and hepatic disease has a solitary cavitary nodule. Most likely cause would be mycobacterial or fungal infection although malignancy cannot be excluded. The location of the lesion is such that it is not approachable endoscopically. It is so small as to present a difficult target for CT-guided biopsy. I think we should begin her evaluation with serologies for coccidiomycosis as well as interferon gamma release assay and nucleic assay amplification with DNA probe for MTB and other mycobacterial species. Other than that, I think she should be observed for now given her other substantial comorbidities. I need to understand more about the previous decision to forego the surgical treatment for her cardiac disease and to be admitted to a nursing facility on hospice status. If the patient's expectations and goals are not consistent with an aggressive evaluation of this lung lesion, we need not proceed any further. If, on the other hand, she and the family would like an aggressive approach to this lesion, a surgical lung biopsy may be the only certain means of obtaining a tissue diagnosis. That, of course, would be complicated by perioperative management of her anticoagulation and advanced valvular heart disease. RECOMMEND: 1. QuantiFERON gold. 2. Expectorated sputum for AFB culture and Nucleic acid amplification with DNA probe, eg Xpert mtb/rif 3. Coccidioidomycosis serologies. 4. PPD unless patient has documented history of previous positive skin test. Thank you for requesting pulmonary consultation. The degree of interest in invasive procedures should be discussed by the primary admitting team with the patient and her family. If they wish to pursue a tissue diagnosis of this lesion, thoracic surgery consultation should be obtained, although with her other significant comorbidities this would be a questionable and challenging course to set. MELVIN
[2017-01-05 13:13] VITALS: BP 167/94; PULSE 75; O2SAT 98
--- NOTE | 2017-01-05 16:22 | PCM.PNMED ---
Subjective Date of Service Jan 05, 2017 Subjective Denies any new issues/complaints. says overall feeling better Exam Vital Signs Vital Sign - Last Date Time Temp Pulse Resp B/P Pulse Ox O2 Delivery O2 Flow Rate FiO2 01/05/17 13:13 75 167/94 98 Room Air 01/05/17 09:34 36.4 20 Intake and Output 01/04/17 01/04/17 01/05/17 Cumulative From/Thru 15:00 23:00 07:00 12/28/16 15:35 - 01/05/17 06:09 Intake Total 300 ml 818 ml 21177 ml Output Total 120 ml 300 ml 85724 ml Balance 180 ml 518 ml 992 ml Intake Oral 300 ml 818 ml 5811 ml IV Total 7546 ml Output Urine Total 120 ml 300 ml 59117 ml Stool Total 1200 ml # Voids 2 7 17 # Bowel Movements 2 18 Exam General: Alert, No Acute Distress Head: Normal Eyes: Scleral Anicteric Nose: Mucous Membr Moist/[place] Mouth: Mucous Membr Moist/[place] Neck: Supple Chest & Lungs: Chest Wall Normal, Clear to auscultation bilat Cardiovascular: Regular Rate/Rhythm Abdomen: Non-tender, Non-distended, Normoactive bowel tones, Soft Extremities: No cyanosis/clubbing/edema bilat Neurological: Grossly Neurologically Intact IVs and Medications Medications Reviewed: Medications were reviewed in detail Lab and Diagnostics Result Diagram: 01/05/17 0635 01/05/17 0635 Microbiology Urine/blood negative from 12/28 and 12/29 X-Rays, CTs and MRIs CXR 1. No acute cardiopulmonary disease. 2. Moderate-sized hiatal hernia again noted. Dictated by: Kane Dangelo M.D. on 12/28/2016 at 16:19 CT Brain 1. No acute intracranial process. 2. Moderate atrophy and chronic microvascular ischemic changes. Dictated by: Fannie Tabares M.D. on 12/28/2016 at 14:56 12-lead ECG EKG from 12/28 concurrently reviewed by Fina rate of 89, QTC 439 ms sinus rhythm LVH with secondary repolarization abnormality Old inferior infarct Anterior ST elevation probably due to LVH Additional Diagnostics CT CHEST WITHOUT CONTRAST: Kane Dangelo M.D. on 12/31/2016 at 17:55 1. Interval central cavitation of a peripheral left upper lobe nodule. Given the prior medial bibasilar consolidation, findings likely represent sequelae of an atypical infection such as from fungal etiologies or atypical bacteria. Other differential considerations such as septic emboli or noninfectious inflammatory etiologies are not excluded but are less likely. 2. Septal thickening in the lung suggesting pulmonary edema. 3. Small residual clustered ground glass nodules in the right lung suggesting a mild infectious or inflammatory process. 4. Moderate to large hiatal hernia. 5. Small amount of perisplenic free fluid. Dictated by: Kane Dangelo M.D. on 12/31/2016 at 17:55 CT ANGIO CHEST PULMONARY EMBOLISM: Fannie Tabares M.D. on 11/05/2016 at 16:04 1. Heterogeneous filling defects predominantly within the right upper and middle bladder lobes within the tertiary branches of the pulmonary artery most consistent with pulmonary emboli. 2. Bilateral appearance of prominent groundglass like opacities within the lungs bilaterally. These can be seen with infection or inflammation. 3. Marked interval increase in size of previously identified sub-centimeters right upper lobe nodule, concerning for neoplastic disease. In addition, the lungs demonstrate interval development of bilateral pleural effusions as well as ill-defined areas of nodular coarsening. The latter could be related to areas of edema or poorly visualized areas of nodularity partially obscured by groundglass opacities and effusions. Recommend interval followup to document resolution. Dictated by: Fannie Tabares M.D. on 11/05/2016 at 16:04 Approved by: Fannie Tabares M.D. on 11/05/2016 at 16:12 Assessment & Plan 71-year-old female with a history of severe MR, PEs 3, CAD, hypertension, CHF, COPD, hyperlipidemia, A. fib, ventricular alcoholism, chronic pain, prior overdose, and report of multiple pulmonary masses that has not been worked up. Patient was on hospice and this morning when she became more confused hospice was suspended so she can be seen in the ED. # Acute on chronic encephalopathy versus dementia and behavioral disorder; present on admission; improving - Continue with supportive care including prn Ativan and Seroquel - Patient reportedly using alcohol and benzodiazepines at home - Continue CIWA protocol - Phenobarbital 60 mg every 8 hours as needed for severe agitation - Psychiatry consulted per palliative care report on 01/04. will followup with recs # Acute hyperkalemia, present on admission. Resolved. Now with acute hypokalemia - Patient presented with a potassium 7.2 and hyperkalemia protocol was initiated - Replete potassium and followup # Pulmonary masses; present on admission; ongoing - Previous workup declined and patient placed on hospice - Appreciate pulmonology consult. Will followup with recommendations - QuantiFERON gold. - Expectorated sputum for AFB culture and Nucleic acid amplification with DNA probe - Coccidioidomycosis serologies. # Acute kidney injury, present on admission. Resolved - Resolved with IVF. - Avoid nephrotoxic meds - Followup pending goals of care # Chronic pain - Continue with supportive care # History of pulmonary embolism on 10/2016 - Continue Warfarin (dose per pharmacy) given no plan for biopsy. Will use Lovenox to bridge. # Goals of care - Appreciate palliative care consult. Will followup with recommendations. Disposition: Patient is severely agitated/delirious and has been declining at home over the last month. She was on hospice prior to her acute and rather quick onset of delirium. Palliative care is discussing family tomorrow. Can be discharged when placement is available. She will likely need some sort of nursing support unless she goes back on hospice. Resuscitation Status: DNR/DNI:Do Not Resuscitate/Intubate (per her -- will need to review tomorrow) Nicolas Rendon Jan 05, 2017 16:22
[2017-01-05] MEDS ORDERED: Potassium Chloride 20 mEq SR Tablet PO ONE (16:25)
[2017-01-05] MEDS ORDERED: Warfarin 5 MG, Warfarin 2.5 MG PO ONE ×2 (17:00)
[2017-01-05 18:27] VITALS: BP 147/96; PULSE 85; RESP 20; O2SAT 97
[2017-01-05 22:23] VITALS: BP 169/98; PULSE 74; RESP 20; O2SAT 98
[2017-01-05 22:56] VITALS: PULSE 72
[2017-01-06] VITALS (8 sets, daily range): BP systolic 127–153; BP diastolic 83–96; PULSE 66–90; RESP 18–20; O2SAT 96–99
[2017-01-06] MEDS: Multivit-Miner-Folic Acid-Iron Tablet PO SCH (09:34)
[2017-01-06 09:43] LABS: INR 1.06 ratio
--- NOTE | 2017-01-06 14:09 | PCM.PHAPRO ---
Progress WARFARIN DOSING PER PHARMACY [facility] SLF SLF SLF DFF DFF DFF Date 6-Dec 7 8 9Jan 05 11-Dec INR 0.96 1 1.01 1.06 1.1 1.06 INR change 0.04 0.01 0.05 0.04 -0.04 Warf Dose NONE 5MG 7MG 7 7.5 7.5 A/P -Subtherapeutic INR. Legs bleed reported after shaving yesterday PM. Currently wrapped per RN. -Will continue to dose warfarin 7.5mg this evening given subtherapeutic level. -Lovenox dose held until 01/07/17 am (tomorrow) Jd Wu,PharmD Jd Wu Jan 06, 2017 14:09
--- NOTE | 2017-01-06 14:56 | PCM.PNMED ---
Subjective Date of Service Jan 06, 2017 Subjective Denies any new issues/complaints. says overall feeling better Exam Vital Signs Vital Sign - Last Date Time Temp Pulse Resp B/P Pulse Ox O2 Delivery O2 Flow Rate FiO2 01/06/17 13:53 36.7 71 18 153/96 99 Room Air 01/06/17 06:13 6.00 Intake and Output 01/05/17 01/05/17 01/06/17 Cumulative From/Thru 15:00 23:00 07:00 12/28/16 15:35 - 01/06/17 06:32 Intake Total 1100 ml 400 ml 15437 ml Output Total 900 ml 14590 ml Balance 1100 ml -500 ml 1592 ml Intake Oral 1100 ml 400 ml 7311 ml IV Total 7546 ml Output Urine Total 900 ml 03979 ml Stool Total 1200 ml # Voids 3 20 # Bowel Movements 0 18 Exam General: Alert, No Acute Distress Head: Normal Eyes: Scleral Anicteric Nose: Mucous Membr Moist/[place] Mouth: Mucous Membr Moist/[place] Neck: Supple Chest & Lungs: Chest Wall Normal, Clear to auscultation bilat Cardiovascular: Regular Rate/Rhythm Abdomen: Non-tender, Non-distended, Normoactive bowel tones, Soft Extremities: No cyanosis/clubbing/edema bilat Neurological: Grossly Neurologically Intact IVs and Medications Medications Reviewed: Medications were reviewed in detail Lab and Diagnostics Result Diagram: 01/05/17 0635 01/06/17 0910 Microbiology Urine/blood negative from 12/28 and 12/29 X-Rays, CTs and MRIs CXR 1. No acute cardiopulmonary disease. 2. Moderate-sized hiatal hernia again noted. Dictated by: Kane Dangelo M.D. on 12/28/2016 at 16:19 CT Brain 1. No acute intracranial process. 2. Moderate atrophy and chronic microvascular ischemic changes. Dictated by: Fannie Tabares M.D. on 12/28/2016 at 14:56 12-lead ECG EKG from 12/28 concurrently reviewed by Fina rate of 89, QTC 439 ms sinus rhythm LVH with secondary repolarization abnormality Old inferior infarct Anterior ST elevation probably due to LVH Additional Diagnostics CT CHEST WITHOUT CONTRAST: Kane Dangelo M.D. on 12/31/2016 at 17:55 1. Interval central cavitation of a peripheral left upper lobe nodule. Given the prior medial bibasilar consolidation, findings likely represent sequelae of an atypical infection such as from fungal etiologies or atypical bacteria. Other differential considerations such as septic emboli or noninfectious inflammatory etiologies are not excluded but are less likely. 2. Septal thickening in the lung suggesting pulmonary edema. 3. Small residual clustered ground glass nodules in the right lung suggesting a mild infectious or inflammatory process. 4. Moderate to large hiatal hernia. 5. Small amount of perisplenic free fluid. Dictated by: Kane Dangelo M.D. on 12/31/2016 at 17:55 CT ANGIO CHEST PULMONARY EMBOLISM: Fannie Tabares M.D. on 11/05/2016 at 16:04 1. Heterogeneous filling defects predominantly within the right upper and middle bladder lobes within the tertiary branches of the pulmonary artery most consistent with pulmonary emboli. 2. Bilateral appearance of prominent groundglass like opacities within the lungs bilaterally. These can be seen with infection or inflammation. 3. Marked interval increase in size of previously identified sub-centimeters right upper lobe nodule, concerning for neoplastic disease. In addition, the lungs demonstrate interval development of bilateral pleural effusions as well as ill-defined areas of nodular coarsening. The latter could be related to areas of edema or poorly visualized areas of nodularity partially obscured by groundglass opacities and effusions. Recommend interval followup to document resolution. Dictated by: Fannie Tabares M.D. on 11/05/2016 at 16:04 Approved by: Fannie Tabares M.D. on 11/05/2016 at 16:12 Assessment & Plan 71-year-old female with a history of severe MR, PEs 3, CAD, hypertension, CHF, COPD, hyperlipidemia, A. fib, ventricular alcoholism, chronic pain, prior overdose, and report of multiple pulmonary masses that has not been worked up. Patient was on hospice and this morning when she became more confused hospice was suspended so she can be seen in the ED. # Acute on chronic encephalopathy versus dementia and behavioral disorder; present on admission; improving - Continue with supportive care including prn Ativan and Seroquel - Patient reportedly using alcohol and benzodiazepines at home - Continue CILA protocol - Phenobarbital 60 mg every 8 hours as needed for severe agitation - Psychiatry consulted per palliative care report on 01/04. Awaiting official recs # Acute hyperkalemia, present on admission. Resolved. Now with acute hypokalemia - Patient presented with a potassium 7.2 and hyperkalemia protocol was initiated - Replete potassium and followup # Pulmonary masses; present on admission; ongoing - Previous workup declined and patient placed on hospice - Appreciate pulmonology consult. Will followup with recommendations - QuantiFERON gold. - Expectorated sputum for AFB culture and Nucleic acid amplification with DNA probe - Coccidioidomycosis serologies. # Acute kidney injury, present on admission. Resolved - Resolved with IVF. - Avoid nephrotoxic meds - Followup pending goals of care # Chronic pain - Continue with supportive care # History of pulmonary embolism on 10/2016 - Continue Warfarin (dose per pharmacy) given no plan for biopsy. Will use Lovenox to bridge. # Goals of care - Appreciate palliative care consult. Will followup with recommendations. Disposition: Patient is severely agitated/delirious and has been declining at home over the last month. She was on hospice prior to her acute and rather quick onset of delirium. Palliative care is discussing family tomorrow. Can be discharged when placement is available. She will likely need some sort of nursing support unless she goes back on hospice. VTE Mechanical Devices: Venous Foot Pump Resuscitation Status: DNR/DNI:Do Not Resuscitate/Intubate (per her -- will need to review tomorrow) Nicolas Rendon Jan 06, 2017 14:55
[2017-01-06] MEDS ORDERED: Potassium Chloride 20 mEq SR Tablet PO ONE (15:00)
[2017-01-06] MEDS: oxyCODONE-Acetamin 5-325 mg Tablet PO PRN ×2 (16:53→20:37)
[2017-01-06] MEDS ORDERED: Warfarin 5 MG, Warfarin 2.5 MG PO ONE ×2 (17:00)
--- NOTE | 2017-01-06 18:27 | CONS ---
[address] [address] CONSULTATION REPORT PATIENT: VENANCIO GOMEZ : 1945 MR#: [id number] ADMIT: 12/28/2016 JOB ID: [id number] DATE OF SERVICE: 01/06/2017 IDENTIFYING DATA: The patient is a 71-year-old female with a history of severe mitral regurgitation, pulmonary emboli, coronary artery disease, hypertension, congestive heart failure, COPD, hyperlipidemia, atrial fibrillation, chronic pain, alcoholism, history of previous overdose and multiple pulmonary masses that had not been worked up. The patient had been on hospice prior to admission and became more confused and hospice was suspended and she was sent to the emergency department. REFERRAL INFORMATION: The patient is referred by Dr. Kendrick. HISTORY OF PRESENT ILLNESS: As noted above. The patient has multiple medical issues and, according to the patient's , the patient had been yelling at him and had become "worked up" before becoming very confused and somnolent or lethargic all the while being combative. According to the patient's , over the last month, she had been deteriorating and three days prior to presentation she had a bradycardic episode with hypotension with a blood pressure of 70/40. Laboratory studies demonstrated relatively benign CBC, hyperkalemia, hypochloremia, acute kidney injury with a creatinine of 3.75 and mild hypercalcemia. Carbatrol level had been checked and was low at 10.1, and alcohol was negative. Blood cultures were obtained. CT of the brain showed no acute intracranial process, although there were microvascular ischemic changes. Chest x-ray showed moderate sized hiatal hernia. Otherwise benign. The patient had nonsustained asymptomatic ventricular tachycardia and was treated with hyperkalemia protocol. The patient had masses identified on CT of the chest on November 24, 2016. According to palliative care notes, the patient had been medication nonadherent at times in the past. The patient had a pulmonary consultation on January 04, 2017 to address possible causes of delirium. They recommended a number of tests to assess the nodule found on CT, although did not appear to be causative of her mental status change. The patient has also been followed by Palliative Care and Pharmacy for anticoagulation. The patient reports a history of depression for which she received counseling and medication treatment in the past. She indicated that she had treatment with Prozac and Wellbutrin in the past, but did not find either terribly helpful. She reports her sleep is poor and appetite is poor. She denies current hallucinations but reports prior to being diagnosed with Clostridium difficile, she had an episode where she was hallucinating. PAST PSYCHIATRIC HISTORY: INPATIENT: The patient denies. OUTPATIENT: The patient reports remote history of counseling, but did not wish to discuss in details. PAST PSYCHIATRIC MEDICATIONS: Fluoxetine and bupropion. The patient reported that she did not find these medications terribly helpful. She reports that the quetiapine which was recently started has been somewhat helpful. Although the patient denied a history of suicide attempt, there is a notation in the record of history of overdose. 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 She reports being to her since 1968 and has two children. They have a home in [place]. SUBSTANCE USE HISTORY: According to the patient's , the patient typically drinks 4 ounces of hard liquor per day and last drank on the day before admission. She denies a history of withdrawal tremors or DTs or inpatient or outpatient treatment. She denies the use of other substances. 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 Patient reports history of asthma, COPD, congestive heart failure, coronary artery disease, GERD, hyperlipidemia, and hypertension and history of atrial fibrillation and urinary tract infection. SURGICAL HISTORY: Significant for right knee surgery in 1966. Cardiac catheterization June 2012 and 2013. Hysterectomy in 2003 and a history of cholecystectomy. A CT of chest without contrast suggests atypical infection such as fungal etiology or atypical bacterial infection, although septic emboli or noninfectious inflammatory etiologies could not be excluded but are less likely. CURRENT MEDICATIONS: 1. Oxycodone/acetaminophen 4/325 every 6 hours as needed for pain. 2. Quetiapine 25 mg four times a day. 3. vitamin daily. 4. Morphine sulfate 1-2 mg q.4 h. p.r.n. IV push. 5. Lisinopril 10 mg twice daily. 6. Thiamin 100 mg daily. 7. Lorazepam q.2 h. p.r.n. IV push for anxiety to use with Seroquel. 8. Acetaminophen 650 mg q.6 hours p.r.n. mild pain or fever. 9. Quetiapine 25 mg q.4 h. p.r.n. p.o. agitation. 10. Haldol 5 mg q.1 h. p.r.n. IM severe agitation. 11. Nicotine topical. Patient refusing. 12. Coumadin dosing daily. 13. Enoxaparin 60 mg q.12 h. subcutaneous. ALLERGIES: 1. FLU VACCINE. 2. INFLUENZA. 3. VIRUS VACCINES. 4. PENICILLINS. 5. BUPROPION. 6. FLUOXETINE/ 7. SULFASALAZINE. MENTAL STATUS EXAMINATION: Appearance: The patient is a somewhat unkempt-appearing, tearful female wearing hospital issue clothing. Behavior: The patient appears distracted during the interview and walks around the room at times appearing somewhat distracted. Mood: The patient is reporting depression affect, tearful and consistent with mood. Speech: Normal rate, volume, and sad or irritable tone. Content of thought: She reports some suicidal thoughts but denies intent to harm self, reporting that injury to her family and "leaving a mess" keeps her from actually considering harming herself. She denies specific homicidal ideation though notes that "what I do in my own home is my own business." She denies any particular individual and denies any intent to harm anyone. She denies auditory or visual hallucinations or telepathy. She denies sander paranoid ideation, although appears suspicious of the motives of some individuals. Thought processes: Somewhat circumstantial and tangential at times but generally responds to questions appropriately. Insight and judgment: Impaired. Memory and concentration: Poor. Intelligence: Appears to be in the average range based upon history and vocabulary. Orientation: The patient could not say the name of location and she was not oriented to date. She reported this could be December, January or March. Sensorium: The patient appeared to have difficulty stating the location and date, although she was aware she was in the hospital. She appears to be suffering from a mild dementia or delirium but based upon history of agitation this would suggest delirium. IMPRESSION: The patient is a 71-year-old female with multiple medical issues who is admitted, as noted above. She appears to have had agitation of unclear origin which has responded in the last few days to treatment with quetiapine as well as lorazepam. The patient appears to have a longstanding history of depression and appears to be depressed at this time. Although reporting vague thoughts of suicide or homicide, she denies any intent of harming herself or anyone else. The patient is open to trying an antidepressant and we discussed using mirtazapine as her laboratory studies have normalized, and this may help both insomnia and appetite issues. We discussed increasing her bedtime quetiapine to 50 mg and maintaining 25 mg throughout the day, although if she responds without excessive sedation may consider changing to 50 mg three times a day. To reduce possible confusion at night, would reduce the use of lorazepam IV from 0.5 to 1 mg with oral quetiapine, particularly considering she is using both Percocet and morphine both of which can cause confusion at night. The patient appears to have been a relatively heavy alcohol user, but does not have a history of delirium tremens or significant withdrawal symptoms and at this time this does not appear to be a primary component of her confusion. The patient could also be experiencing some form of pseudodementia from depression. PROVISIONAL DIAGNOSES: [place] I 1. 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 2. Major depressive disorder, recurrent. Spear[place] II Deferred. Spearfish III See past medical history. [place]ar[place] IV Severe. [place] V Global assessment of functioning 35-40. PLAN OF TREATMENT: 1. Will increase quetiapine to 25 mg three times a day and 50 mg at bedtime and continue the 25 mg q.4 h. for severe agitation. 2. Will reduce lorazepam to 0.5-1 mg q.4 h. for anxiety or agitation and would discontinue haloperidol. 3. Will start mirtazapine 7.5mg nightly. 4. As the patient's QTc is in the normal range, but the patient has a significant cardiac history, would follow up with an EKG in the next 2-3 days to assess for any impact on conduction. 5. Generally speaking, would attempt to avoid excessive use of benzodiazepines in patients with delirium to avoid worsening symptoms. 6. The patient may benefit from outside food to help improve appetite and also normalization of environment somewhat with some of her own clothing may also help her mood. 7. If the patient is to go back on hospice, she may be appropriate for in-home care if this could be arranged, and the patient's mental status has been stabilized. 8. Psychiatry will follow up to determine response to medication changes. MELVIN
[2017-01-07] VITALS (8 sets, daily range): BP systolic 120–153; BP diastolic 71–92; PULSE 69–99; RESP 16–18; O2SAT 97–99
[2017-01-07 07:10] LABS: INR 1.04 ratio
[2017-01-07 07:24] LABS: Magnesium 1.8 mg/dL (1.6-2.6)
[2017-01-07] MEDS: Multivit-Miner-Folic Acid-Iron Tablet PO SCH (10:09)
[2017-01-07] MEDS: oxyCODONE-Acetamin 5-325 mg Tablet PO PRN ×2 (12:15→20:06)
[2017-01-07] MEDS: Alum-Mag Hydrox-Simeth 30 mL Suspension PO PRN (12:15)
--- NOTE | 2017-01-07 15:05 | PCM.PALLBR ---
Palliative Care Recommendation 71-year-old female with history of COPD, systolic CHF with severe MR (not amenable to mechanical intervention) history of multiple PEs as well as nodularities on chest imaging- admitted with intractable delirium and now with progression of chest nodule to cavitary lesion. Summary of palliative recommendations: 01/07/17-Pulmonary lesion awaiting results. Alcohol abuse with little to no insight. At this point she is probably decisional but again no insight. Encourage treatment Depression- chronic. Hx CHF-edema resolved and no orthopnea. Encephalopathy-markedly improved. She denies ever having withdrawal but her daughter states had w/d before going to [facility] and the first week of this hospital stay was treated as if ETOH w/d. Cannot r/o different cause of delirium. GOC- established and unchanged. Disposition-TBD. I still do not believe it would be good for her or her for her to go home. 01/04/17- psychiatry consultation for their recommendations for medication for her severe/intractable delirium. Case discussed by phone with Dr. Mayers. For now, continue medications put in place by hospitalist team. Per my conversation with bus starter, he doubts bacterial process, and suspects mycobacterial or fungal process. Serologic studies pending. I attempted to contact her by phone today, left messages for him but have never heard back. Need to review his and the rest of the family's wishes for ongoing aggressive evaluation/care, versus return to hospice status- they have been ambivalent/inconsistent in terms of their wishes in the past. CODE STATUS- 's goal was always to support his 's decision as no code /DO NOT RESUSCITATE/DO NOT INTUBATE --status changed to reflect this. DISPOSITION: goal is for SNF. Then once improved with PT, meals and no ETOH-re- eval if she is willing to consider treatment. Her alcoholism is longstanding and has consumed many emotional resources in this family. at this point it is not safe for pt to live at home-- for her or for her -Family/emotional support- and daughters -Spiritual support-addressed in past- not important for pt-past communication Additional Medical Diagnoses with primary management by Hospitalist team include : # Acute kidney injury, present on admission. Resolved # Acute hyperkalemia, present on admission. Resolved. # Acute on chronic encephalopathy versus dementia and behavioral disorder; present on admission; ongoing # Pulmonary masses; present on admission; ongoing # Chronic pain # History of pulmonary embolism on 10/2016 Problems: End of Life Preferences DNR/DNI/limited Disposition To be determined Resuscitation Status Resuscitation Status: DNR/DNI:Do Not Resuscitate/Intubate (per her -- will need to review tomorrow) POLST Updates/Changes Previous POLST?: Yes Artificially Admin Nutrition: No Artifical Nutrition by Tube POLST Discussed with: Health Care Agent ([facility]) POLST Review Outcome: No Change . Symptom management: Depression, Anxiety, Agitation Total time 45 minutes; >50% face to face with patient and/or family, providing counselling regarding plans and recommendations, and in care coordination with his/her medical teams. Chart reviewed and case discussed with CM re disposition. Patient interviewed. Reviewed with house staff I also spent an additional [ ] minutes counseling for advanced care planning with the patient/the patients family/the surrogate decision maker. Palliative Brief Note Date of Service Jan 07, 2017 . Patient sleeping whenever checked. Easily arousable and conversant. Slightly agitated, tearful, accusatory or her -she describes long hx of anger/dysfxn in relationship. She describes him as distant and mean. She states he is controlling. She sees little reason to deny herself her "little pleasures" -like drinking. She has no interest in CD txmt. She rejects any form of counselling- self, alcohol, marriage. She states she just doesn't talk to her . When asked where she would go if not able to go back home- she states she would get an apt near her mother in [place] who lives in Assisted care. O: has no recall of any events at home for the past month-states she was "sick" conversant but with little insight into her situation, relationship issues etc. occ tearful then can be very bitter up walking in her room has daily labs-K now normal and protime always normal awaiting labs on TB, fungal re cavitary lesion in lung- pulm following Peyton Michaud MD Jan 07, 2017 15:05
--- NOTE | 2017-01-07 15:49 | PCM.PNMED ---
Subjective Date of Service Jan 07, 2017 Subjective Denies any new issues/complaints. says overall feeling better Exam Vital Signs Vital Sign - Last Date Time Temp Pulse Resp B/P Pulse Ox O2 Delivery O2 Flow Rate FiO2 01/07/17 15:14 36.7 99 18 132/87 97 Room Air 01/06/17 06:13 6.00 Intake and Output 01/06/17 01/06/17 01/07/17 Cumulative From/Thru 15:00 23:00 07:00 12/28/16 15:35 - 01/07/17 06:36 Intake Total 500 ml 620 ml 35724 ml Output Total 275 ml 350 ml 33784 ml Balance 225 ml 270 ml 2087 ml Intake Oral 500 ml 620 ml 8431 ml IV Total 7546 ml Output Urine Total 275 ml 350 ml 12177 ml Stool Total 1200 ml # Voids 20 # Bowel Movements 18 Exam General: Alert, No Acute Distress Head: Normal Eyes: Scleral Anicteric Nose: Mucous Membr Moist/[place] Mouth: Mucous Membr Moist/[place] Neck: Supple Chest & Lungs: Chest Wall Normal, Clear to auscultation bilat Cardiovascular: Regular Rate/Rhythm Abdomen: Non-tender, Non-distended, Normoactive bowel tones, Soft Extremities: No cyanosis/clubbing/edema bilat Neurological: Grossly Neurologically Intact IVs and Medications Medications Reviewed: Medications were reviewed in detail Lab and Diagnostics Result Diagram: 01/05/17 0635 01/07/17 0635 Microbiology Urine/blood negative from 12/28 and 12/29 X-Rays, CTs and MRIs CXR 1. No acute cardiopulmonary disease. 2. Moderate-sized hiatal hernia again noted. Dictated by: Kane Dangelo M.D. on 12/28/2016 at 16:19 CT Brain 1. No acute intracranial process. 2. Moderate atrophy and chronic microvascular ischemic changes. Dictated by: Fannie Tabares M.D. on 12/28/2016 at 14:56 12-lead ECG EKG from 12/28 concurrently reviewed by Fina rate of 89, QTC 439 ms sinus rhythm LVH with secondary repolarization abnormality Old inferior infarct Anterior ST elevation probably due to LVH Additional Diagnostics CT CHEST WITHOUT CONTRAST: Kane Dangelo M.D. on 12/31/2016 at 17:55 1. Interval central cavitation of a peripheral left upper lobe nodule. Given the prior medial bibasilar consolidation, findings likely represent sequelae of an atypical infection such as from fungal etiologies or atypical bacteria. Other differential considerations such as septic emboli or noninfectious inflammatory etiologies are not excluded but are less likely. 2. Septal thickening in the lung suggesting pulmonary edema. 3. Small residual clustered ground glass nodules in the right lung suggesting a mild infectious or inflammatory process. 4. Moderate to large hiatal hernia. 5. Small amount of perisplenic free fluid. Dictated by: Kane Dangelo M.D. on 12/31/2016 at 17:55 CT ANGIO CHEST PULMONARY EMBOLISM: Fannie Tabares M.D. on 11/05/2016 at 16:04 1. Heterogeneous filling defects predominantly within the right upper and middle bladder lobes within the tertiary branches of the pulmonary artery most consistent with pulmonary emboli. 2. Bilateral appearance of prominent groundglass like opacities within the lungs bilaterally. These can be seen with infection or inflammation. 3. Marked interval increase in size of previously identified sub-centimeters right upper lobe nodule, concerning for neoplastic disease. In addition, the lungs demonstrate interval development of bilateral pleural effusions as well as ill-defined areas of nodular coarsening. The latter could be related to areas of edema or poorly visualized areas of nodularity partially obscured by groundglass opacities and effusions. Recommend interval followup to document resolution. Dictated by: Fannie Tabares M.D. on 11/05/2016 at 16:04 Approved by: Fannie Tabares M.D. on 11/05/2016 at 16:12 Assessment & Plan 71-year-old female with a history of severe MR, PEs 3, CAD, hypertension, CHF, COPD, hyperlipidemia, A. fib, ventricular alcoholism, chronic pain, prior overdose, and report of multiple pulmonary masses that has not been worked up. Patient was on hospice and this morning when she became more confused hospice was suspended so she can be seen in the ED. # Acute on chronic encephalopathy versus dementia and behavioral disorder; present on admission; improving - Continue with supportive care - Patient reportedly using alcohol and benzodiazepines at home - CIWA protocol - Appreciate Psychiatry consult. Will followup with recs # Pulmonary masses; present on admission; ongoing - Previous workup declined and patient placed on hospice - Appreciate pulmonology consult. Will followup with recommendations - QuantiFERON gold. - Expectorated sputum for AFB culture and Nucleic acid amplification with DNA probe - Coccidioidomycosis serologies. - ID consulted today as well. Will followup with recs # Acute kidney injury, present on admission. Resolved - Resolved with IVF. - Avoid nephrotoxic meds # Acute hypokalemia, not present on admission. Resolved # Acute hyperkalemia, present on admission. Resolved. - Patient presented with a potassium 7.2 and hyperkalemia protocol was initiated # Chronic pain - Continue with supportive care # History of pulmonary embolism on 10/2016 - Continue Warfarin (dose per pharmacy) given no plan for biopsy. Will use Lovenox to bridge. # Goals of care - Appreciate palliative care consult. Will followup with recommendations. Disposition: 2-3 days VTE Mechanical Devices: Venous Foot Pump Resuscitation Status: DNR/DNI:Do Not Resuscitate/Intubate (per her -- will need to review tomorrow) Nicolas Rendon Jan 07, 2017 15:49
--- NOTE | 2017-01-07 19:15 | PCM.ADCARE ---
Advance Care Planning Note Purpose of Encounter: Goals of care Parties in Attendance: Patient and her Decisional Capacity: seems to be decisional Subjective: feeling frustrated about prolonged hospitalization Objective: General: Alert, No Acute Distress Head: Normal Eyes: Scleral Anicteric Nose: Mucous Membr Moist/[place] Mouth: Mucous Membr Moist/[place] Neck: Supple Chest & Lungs: Chest Wall Normal, Clear to auscultation bilat Cardiovascular: Regular Rate/Rhythm Abdomen: Non-tender, Non-distended, Normoactive bowel tones, Soft Extremities: No cyanosis/clubbing/edema bilat Neurological: Grossly Neurologically Intact Goals of Care Determinations: patient and her agree that patient is not comfort care only status at this time. She says she does want treatments that are not indefinite and will have reasonable chance of curing/fixing the problem but otherwise does not want any invasive procedures or treatments that will have less than 90% chance of success. She hopes to be able to go back home but says it's up to her to accept her back home. Her says if her mental status continue to be as stable and her behavior as appropriate as it has been in the past couple of days here in the hospital he would be OK with her going back home but otherwise were she become agitated or delirious he does not think he can take care of her at home. Plan: Continue with current care and rule out TB. CODE STATUS: DNR/DNI Time Spent Adv.Care Plannin min Nicolas Rendon Jan 07, 2017 19:14
--- NOTE | 2017-01-08 00:23 | CONS ---
[address] [address] CONSULTATION REPORT PATIENT: VENANCIO GOMEZ : 1945 MR#: [id number] ADMIT: 12/28/2016 JOB ID: [id number] DATE OF SERVICE: 01/07/2017 REASON FOR CONSULTATION: Cavitary pulmonary lesion. HISTORY OF PRESENT ILLNESS: The patient is a 71-year-old woman with an extraordinary array of medical problems who is well known to me from an admission back in October. She was admitted now 10 days ago, this time with confusion and ongoing delirium. This has subsequently resolved and the patient is undergoing workup for a variety of other problems as well as discussions about whether she will be in hospice or not when she is discharged. ID consultation is requested today regarding the cavitary lesion. Recall that this is a patient with underlying alcoholic liver disease, organic heart disease, COPD and a history of C. difficile colitis with irritable bowel syndrome thereafter. When I last saw her in October, we were discussing her issues with C. difficile and she was prescribed a tapering dose to go on for several weeks with the intention that if it should recur, she would be sent to [place] for a stool transplant. Following that admission, the patient apparently did reasonably well until early December when she was admitted on December 28 with confusion and, at times, combative personality changes. Her reported that during the month of November she had been deteriorating with mental status changes as well as periods where she had bradycardia as well as hypotension. The patient's stated he wished additional work up. It is notable that she has recently actually been in hospice and that hospice designation was suspended for the admission which started now 10 days ago on December 28 when she was readmitted. It was noted that she was just becoming less and less functional, and was no longer really able to live independently at home. During the course of this now fairly lengthy admission, the patient has had an extensive workup including evaluation by Pulmonary and Psychiatry as well as the Palliative team. At least some of the improvement in her mental status was due to the cessation of alcohol and benzodiazepines which are being used at home. Her pulmonary masses were previously characterized and their workup was suspended when she was placed on hospice, but repeat imaging here has shown that at least one of these lesions has cavitated and has now formed a thin-walled cavity which Pulmonary has been involved in working up. This workup has been difficult because the patient is unable to cough. This afternoon, when we see the patient in consult, she tells us she is feeling dramatically better. She no longer is confused and states she is ready to go home at this point. She states she has no significant headache. She denies being confused at all recently. No sore throat. She has absolutely no cough and no chest pain. She reports that she has been given sputum containers and told about how important it was to cough up some samples to better evaluate this hole in her lung, but she states she cannot cough up anything at all and basically has no cough, and what little cough she has is completely dry. She has no abdominal complaints at this time other than occasional small volume loose stools. The patient is anxious to be discharged to home and does not wish to go to a nursing facility. PAST MEDICAL HISTORY: 1. Alcoholism, with periods of alcoholic hepatitis. 2. Organic heart disease: a. Atrial fibrillation. b. CHF. c. Mitral regurgitation. 3. Hypertension. 4. COPD. Note that the patient quit smoking four months ago. 5. Hypothyroidism. 6. Chronic insomnia, with periods of delirium reported. 7. Hyperlipidemia. 8. C. diff July 2016, with post the C. difficile irritable bowel syndrome. SOCIAL HISTORY: The patient is no longer smoking cigarettes for four months or so, but she still is reported to consume alcohol up until the time she was admitted. She is retired. 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 They do not have any children in the home. FAMILY HISTORY: Negative for TB in first-degree relatives. REVIEW OF SYSTEMS: The patient has no headache, no visual change. No sore throat today. She denies productive cough, and states she is not short of breath. She has no nausea, vomiting or diarrhea. She has no dysuria. She states her confusion and shaking are much improved. Remainder of the review of systems is negative. PHYSICAL EXAMINATION: Reveals a calm and poised woman, in no acute distress. She is afebrile, as she has been throughout this long hospital stay. Current temp 36.9, pulse 89, respiratory rate 18, blood pressure 120/85. She is saturating well on room air and appears to be in no distress whatsoever. Head without trauma. Eyes without conjunctivitis or scleral icterus. Oral cavity without thrush or hairy leukoplakia. The lips are without herpetic lesions. The neck is supple. The lungs are fairly clear posteriorly. Cardiac tones with a 2/6 murmur as previously heard along the left lower sternal border. The abdomen is not tender. There is no evidence for ascites. She has no suprapubic fullness. No significant peripheral edema. No evidence for skin rash or skin breakdown. Neurologically, she is quite intact. There is no synovitis. LABORATORIES: Include white count which has ranged between 9619-9904 since admission. Platelets normal at about 200,000 on every measurement. She has a mild monocytosis and a 5% eosinophilia. Creatinine 0.75. Urinalysis, 11-50 white cells, all on admission. Serologic studies which are pending include Cocci antibodies, cryptococcal antibodies which should have been cryptococcal antigen, Fungitell and QuantiFERON Gold. Micro studies include negative blood cultures. Negative urine has also been obtained. IMAGING: A CT scan of the chest is interesting. It shows interval cavitation since the last imaging of an irregular node in the left upper lobe which is about 2 cm. There is some area of ground-glass nodules in the right upper lobe as well. The radiologist felt this cavitation of the left upper lobe was most consistent with sequela of an atypical infection like mycobacteria or fungus. Other possibilities they thought included noninfectious inflammatory changes. They also noted it appeared she had possibly some minimal pulmonary edema and a small amount of perisplenic fluid. IMPRESSION: The differential diagnosis for this cavitary lung nodule is broad, but I think realistically the main possibilities here would include a mycobacterial infection, fungal infection, or perhaps a pulmonary malignancy. This is a relatively thin-walled cavity which has developed which is classic for Cocci, but the patient and her have not been anywhere where Cocci exists for a full 30 years, so I think Cocci would be extraordinarily unlikely. Tuberculosis is possible but the patient was a nurse and had many PPDs in her career that were negative. There has never been any history of TB exposure, and I think that would also be quite unlikely. The possibility of an aspiration type event with cavitation also exists but typically these are more thick-walled shaggy type cysts and not from nodules as this one has. RECOMMENDATIONS: 1. I agree with the attempt to collect sputums for AFB to rule out TB as well as to culture for other mycobacteria, but so far, the patient has absolutely no sputum. 2. I agree with the serologic workup that has been initiated other than the crypto antibody which should have been a crypto antigen. This will be reordered. 3. I note that the Pulmonary team has been involved. I do not think we are going to be able to get any samples to rule out infection possibilities in this case without some sputum production or a bronch, and I wonder if a BAL might be considered by the Pulmonary team. 4. If a BAL is not possible, percutaneous needle biopsy might be possible given the position of this lesion which is quite peripheral. 5. The patient and her seem to be more interested in going home than pursuing this workup. If discharge is planned in the next day or two, I think the patient could be safely discharged as she lives only with her at home and he has certainly been exposed to whatever this nodule represents if it is contagious. We could simply wait to see what the serologies including especially the QuantiFERON grow yield, and also just follow the patient clinically. 6. All of this discussion is contingent a bit on what the patient decides to do in terms of hospice care, which seems to be an open discussion at this point. Thank you very much for inviting me to become involved in this case.
[2017-01-08 00:51] VITALS: BP 128/68; PULSE 78; RESP 18; O2SAT 97
[2017-01-08] MEDS: oxyCODONE-Acetamin 5-325 mg Tablet PO PRN ×3 (03:29→21:29)
[2017-01-08 06:18] VITALS: BP 123/79; PULSE 69; RESP 16; O2SAT 98
[2017-01-08 07:27] LABS: INR 0.99 ratio
[2017-01-08] MEDS: Multivit-Miner-Folic Acid-Iron Tablet PO SCH (09:07)
[2017-01-08 10:10] VITALS: BP 129/73; PULSE 77; RESP 16; O2SAT 96
[2017-01-08 10:46] VITALS: PULSE 70
--- NOTE | 2017-01-08 14:58 | PCM.PHAPRO ---
Progress Date of Service: Jan 08, 2017 Warfarin dosing Date 6-Neto 7-Neto 8-Neto 9-Neto 10-Neto 11-Neto 12-Neto 13-Neto INR 0.96 1 1.01 1.06 1.1 1.06 1.04 0.99 INR change 0.04 0.01 0.05 0.04 -0.04 -0.02 -0.05 Warf Dose NONE 5MG 7MG 7 7.5 REFUSED 10 MG 10 MG Burt Villela Jan 08, 2017 14:58
--- NOTE | 2017-01-08 16:17 | PCM.PNMED ---
Subjective Date of Service Jan 08, 2017 Subjective Denies any new issues/complaints. Accuses me of lying to her about her lab results still not back. Says she's had it and wants to go home. Accuses her of not caring and says "should've killed him 20 years ago when I had the chance". Says is not going to take any more Coumadin and is done with taking pills Exam Vital Signs Vital Sign - Last Date Time Temp Pulse Resp B/P Pulse Ox O2 Delivery O2 Flow Rate FiO2 01/08/17 10:46 70 01/08/17 10:10 36.7 16 129/73 96 Room Air 01/06/17 06:13 6.00 Intake and Output 01/07/17 01/07/17 01/08/17 Cumulative From/Thru 15:00 23:00 07:00 12/28/16 15:35 - 01/08/17 06:09 Intake Total 650 ml 300 ml 47083 ml Output Total 500 ml 450 ml 77537 ml Balance 150 ml -150 ml 2087 ml Intake Oral 650 ml 300 ml 9381 ml IV Total 7546 ml Output Urine Total 500 ml 450 ml 53709 ml Stool Total 1200 ml # Voids 20 # Bowel Movements 1 0 19 Exam General: Alert, No Acute Distress Head: Normal Eyes: Scleral Anicteric Nose: Mucous Membr Moist/[place] Mouth: Mucous Membr Moist/[place] Neck: Supple Chest & Lungs: Chest Wall Normal, Clear to auscultation bilat Cardiovascular: Regular Rate/Rhythm Abdomen: Non-tender, Non-distended, Normoactive bowel tones, Soft Extremities: No cyanosis/clubbing/edema bilat Neurological: Grossly Neurologically Intact IVs and Medications Medications Reviewed: Medications were reviewed in detail Lab and Diagnostics Result Diagram: 01/05/17 0635 01/07/17 0635 Microbiology Urine/blood negative from 12/28 and 12/29 X-Rays, CTs and MRIs CXR 1. No acute cardiopulmonary disease. 2. Moderate-sized hiatal hernia again noted. Dictated by: Kane Dangelo M.D. on 12/28/2016 at 16:19 CT Brain 1. No acute intracranial process. 2. Moderate atrophy and chronic microvascular ischemic changes. Dictated by: Fannie Tabares M.D. on 12/28/2016 at 14:56 12-lead ECG EKG from 12/28 concurrently reviewed by Fina rate of 89, QTC 439 ms sinus rhythm LVH with secondary repolarization abnormality Old inferior infarct Anterior ST elevation probably due to LVH Additional Diagnostics CT CHEST WITHOUT CONTRAST: Kane Dangelo M.D. on 12/31/2016 at 17:55 1. Interval central cavitation of a peripheral left upper lobe nodule. Given the prior medial bibasilar consolidation, findings likely represent sequelae of an atypical infection such as from fungal etiologies or atypical bacteria. Other differential considerations such as septic emboli or noninfectious inflammatory etiologies are not excluded but are less likely. 2. Septal thickening in the lung suggesting pulmonary edema. 3. Small residual clustered ground glass nodules in the right lung suggesting a mild infectious or inflammatory process. 4. Moderate to large hiatal hernia. 5. Small amount of perisplenic free fluid. Dictated by: Kane Dangelo M.D. on 12/31/2016 at 17:55 CT ANGIO CHEST PULMONARY EMBOLISM: Fannie Tabares M.D. on 11/05/2016 at 16:04 1. Heterogeneous filling defects predominantly within the right upper and middle bladder lobes within the tertiary branches of the pulmonary artery most consistent with pulmonary emboli. 2. Bilateral appearance of prominent groundglass like opacities within the lungs bilaterally. These can be seen with infection or inflammation. 3. Marked interval increase in size of previously identified sub-centimeters right upper lobe nodule, concerning for neoplastic disease. In addition, the lungs demonstrate interval development of bilateral pleural effusions as well as ill-defined areas of nodular coarsening. The latter could be related to areas of edema or poorly visualized areas of nodularity partially obscured by groundglass opacities and effusions. Recommend interval followup to document resolution. Dictated by: Fannie Tabares M.D. on 11/05/2016 at 16:04 Approved by: Fannie Tabares M.D. on 11/05/2016 at 16:12 Assessment & Plan 71-year-old female with a history of severe MR, PEs 3, CAD, hypertension, CHF, COPD, hyperlipidemia, A. fib, ventricular alcoholism, chronic pain, prior overdose, and report of multiple pulmonary masses that has not been worked up. Patient was on hospice and this morning when she became more confused hospice was suspended so she can be seen in the ED. # Acute on chronic encephalopathy versus dementia and behavioral disorder; present on admission - Had been improving till 6/12 but today patient seems quite agitated and paranoid - Continue with supportive care - Patient reportedly using alcohol and benzodiazepines at home - Appreciate Psychiatry consult. Will followup with further recs # Pulmonary masses; present on admission; ongoing - Previous workup declined and patient placed on hospice - Appreciate ID and pulmonology consult. Will followup with recommendations - QuantiFERON gold. - Patient without any cough or sputum for AFB culture and Nucleic acid amplification with DNA probe - Coccidioidomycosis serologies. # Acute kidney injury, present on admission. Resolved - Resolved with IVF. - Avoid nephrotoxic meds # Acute hypokalemia, not present on admission. Resolved # Acute hyperkalemia, present on admission. Resolved. - Patient presented with a potassium 7.2 and hyperkalemia protocol was initiated # Chronic pain - Continue with supportive care # History of pulmonary embolism on 10/2016 - Per discussion with patient and her on 01/07/17 will stop Warfarin and all other anticoagulation as patient refusing while expressing clear verbal understanding of the risks. Her agrees and supports her stopping anticoagulation treatment. # Goals of care - Appreciate palliative care consult. Will followup with recommendations. Disposition: ? home vs SNF pending improved behavior and pulmonary workup noted above VTE Mechanical Devices: Venous Foot Pump Resuscitation Status: DNR/DNI:Do Not Resuscitate/Intubate (per her -- will need to review tomorrow) Nicolas Rendon Jan 08, 2017 16:17
--- NOTE | 2017-01-08 16:34 | PROG NOTE ---
[address] [address] PROGRESS NOTE PATIENT: VENANCIO GOMEZ : 1945 MR#: [id number] ADMIT: 12/28/2016 JOB ID: [id number] DATE: 01/08/2017 INFECTIOUS DISEASE FOLLOW UP NOTE: REASON FOR FOLLOW UP: Thin-walled cavitary lung lesion. INTERVAL HISTORY: The patient was seen and evaluated today. She has no fevers, chills or sweats. No cough, shortness of breath or chest pain. She has been unable or unwilling to produce any pulmonary specimens. The patient is angry and withdrawn. She states that she has had enough with his hospital stay and wishes to be discharged immediately. She tells us that the hospitalist is unwilling to discharge her unless her will accept her back to their home in [place] and she states she does not wish to go home and reside with her any further. She states she does not have TB and she is unconcerned about the cavitary lesion in her lung. PHYSICAL EXAMINATION: Reveals an angry and depressed appearing woman with a flat affect. Temperature 36.7, pulse 70, respiratory rate 16, blood pressure 129/73. She is saturating well on room air. Oral cavity negative. Lungs: Fairly clear posteriorly with a few scattered crackles and wheezes. Cardiac tones: Regular rate and rhythm. No skin rash noted. LABORATORIES: Include white count 3400 which is unchanged. Platelets 187. Creatinine 0.75. Urinalysis 11-50 white cells. [place] C antibodies are pending. Crypto antigen pending and QuantiFERON Gold pending. Fungitell negative. Blood cultures negative. IMAGING: Includes the CT that was done now a full week ago which shows a cavitation of a left upper lobe nodule. IMPRESSION: This is a very difficult case to figure out. This is a patient who I have had the chance to see numerous times in the past and who has a variety of problems revolving around alcoholism, congestive heart failure with AFib and COPD. The patient has been admitted and evaluated numerous times for delirium in the past. At this point, her mental status seems clear and she seems very depressed, angry and ready to go home. We are left with a new cavity which is thin-walled and occurred in the setting of her previous nodule. This could represent fungal, mycobacterial or nocardial disease. It is also possible that this is non infectious. At this point, the patient looks uninfected and is stable. Ideally we would obtain sputum for AFB smears and cultures which have been ordered but she states she is having absolutely no cough. She has been evaluated by Pulmonary but there are no plans to perform bronchoscopy for this peripheral cavitary lung lesion. RECOMMENDATIONS: 1. No antibiotics at this time as we have no definitive evidence of any infection and the patient looks nontoxic. 2. Ideally we would obtain sputum for AFB x3 with a single sample to be sent for nucleic acid amplification to help rule out a contagious situation with tuberculosis, but at this point, that does not appear to be possible. 3. If the patient wishes to be discharged, I see no compelling reason why not as long as she does not go to a place where there are small children given the outside possibility that this represents TB which I find quite unlikely. 4. If the QuantiFERON Gold is negative with positive mitogen control, I think that will serve as fairly good evidence this is not tuberculosis and we expect that result back soon. 5. If the patient is still in the hospital on January 10, will see the patient again. 6. Case discussed with the psychiatric [facility] consultant who was seeing the patient. MELVIN
--- NOTE | 2017-01-08 17:00 | PCM.PNPSY ---
Subjective Date of Service Jan 08, 2017 Subjective The patient reports that she is unsure whether she is sleeping better with the mirtazapine. She reports feeling frustrated being in the hospital as she thought she was being discharged today. This is exacerbated by the fact that her did not visit and when she called him he stated he would not be visiting due to "my attitude." This further irritated the patient. She was also upset that he would not bring her clothes up to the unit. She stated that she was not suicidal at the present time "what if I am not let out tomorrow, I will be"by drinking a large amount of alcohol on discharge. She denied side effects. Sleep: Still poor unsure if she slept better. Appetite: Still reduced. Suicidal and homicidal ideation: Denies Auditory hallucinations: Denies Visual hallucinations: Denies Other Psychotic Symptoms: N/A Anxiety/Depression: Endorses. Current Medications Current Medications Enoxaparin Sodium 60 mg Q12 SUBQ Last administered on 01/07/17 20:07; Admin Dose 60 MG; Start 01/07/17 at 08:30 Mirtazapine 7.5 mg HS PO Last administered on 01/07/17 22:37; Admin Dose 7.5 MG ; Start 01/06/17 at 21:00 Quetiapine Fumarate 50 mg HS PO Last administered on 01/07/17 22:39; Admin Dose 50 MG; Start 01/06/17 at 21:00 Warfarin Sodium 10 mg OT ONCE PO Last administered on 01/07/17 16:52; Admin Dose 10 MG; Start 01/07/17 at 17:00; Stop 01/07/17 at 17:01; Status DC Mental Status Exam Vital Signs Vital Signs Date Time Temp Pulse Resp B/P Pulse Ox O2 Delivery O2 Flow Rate FiO2 01/08/17 10:46 70 01/08/17 10:10 36.7 77 16 129/73 96 Room Air Appearance: Neat/well groomed Attitude: Guarded, Other (irritable) Behavior: Tearful Affect: Restricted (mildly) Mood: Irritable Thought Process/Associations: Goal Directed Speech Production: Normal Speech Rate: Normal Speech Articulation: Normal Thought Content: Negativistic Danger to Self/Suicidal Ideati: None Danger to Others: None Hallucinations: Auditory (Denies), Visual (Denies) Consciousness: Alert Orientation: Person, Place, Situation Memory: Short Term Memory (Impaired) Estimate Intellectual Function: Average Attention/Concentration & Cogn: Grossly Intact Insight: Limited Judgement: Limited Result Diagram: 01/05/17 0635 01/07/17 0635 Mental Health Plan The patient is a 71-year-old female with multiple medical issues and agitation of unclear origin which has responded in the last few days to treatment with quetiapine as well as lorazepam. The patient appears to have a longstanding history of depression and appears to be depressed at this time. She denies current suicidal ideation although predicates this on her discharge in the near future. The patient has not experienced any significant improvement or change with low-dose mirtazapine but is willing to increase the dose to 15 mg. She notes that she is less sedated than she was previously and is thinking more clearly but indicates this is not necessarily how she wishes to spend her life. She also is clearly frustrated with her home situation. The patient's delirium appears to be abating. Herbster Herbster I 1. Neurocognitive disorder with probable delirium of unknown etiology with multiple medical conditions, resolving. 2. Major depressive disorder, recurrent. Herbster II Deferred. Herbster III See past medical history. Herbster IV Severe. Herbster V Global assessment of functioning 45. Medications Quetiapine to 25 mg three times a day and 50 mg at bedtime Quetiapine 25 mg q.4 h. for severe agitation Lorazepam 0.5-1 mg q.4 h. for anxiety or agitation Mirtazapine 15 mg nightly Treatments 1. Increase mirtazapine to 15 mg nightly. 2. Continue quetiapine and lorazepam as ordered. 3. Attempted to assist patient in getting normal clothing but patient declined. This would likely help normalize her situation. 4. If patient's QTc prolongs may need to discontinue mirtazapine. 5. Patient should be assessed for suicidal ideation by [employer] [employer] at the time of discharge and if reporting suicidal ideation may need referral to DM. Camron Lyon MD Jan 08, 2017 17:00 help her mood. If the patient is to go back on hospice, she may be appropriate for in-home care if this could be arranged, and the patient's mental status has been stabilized. Psychiatry will follow up tomorrow to determine response to medication changes. Camron Lyon MD Jan 08, 2017 17:00
[2017-01-09] MEDS: oxyCODONE-Acetamin 5-325 mg Tablet PO PRN ×2 (03:24→21:24)
[2017-01-09] MEDS: Multivit-Miner-Folic Acid-Iron Tablet PO SCH (08:30)
[2017-01-09 13:12] LABS: Cryptococcal Ag Negative (Negative)
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
--- NOTE | 2017-01-09 16:08 | PCM.PNMED ---
Subjective Date of Service Jan 09, 2017 Subjective Denies any new physical issues/complaints. Continues to complain about her and being in the hospital. Says once she leaves here she is going to get drunk. Accuses her daughters of favoring her instead of her. Accuses her of being a "mean drunk" Exam Vital Signs Vital Sign - Last Date Time Temp Pulse Resp B/P Pulse Ox O2 Delivery O2 Flow Rate FiO2 01/08/17 10:46 70 01/08/17 10:10 36.7 16 129/73 96 Room Air 01/06/17 06:13 6.00 Intake and Output 01/08/17 01/08/17 01/09/17 Cumulative From/Thru 15:00 23:00 07:00 12/28/16 15:35 - 01/09/17 00:29 Intake Total 1200 ml 29200 ml Output Total 500 ml 81714 ml Balance 700 ml 2787 ml Intake Oral 1200 ml 14777 ml IV Total 7546 ml Output Urine Total 500 ml 26103 ml Stool Total 1200 ml # Voids 20 # Bowel Movements 0 19 Exam General: Alert, No Acute Distress Head: Normal Eyes: Scleral Anicteric Nose: Mucous Membr Moist/[place] Mouth: Mucous Membr Moist/[place] Neck: Supple Chest & Lungs: Chest Wall Normal, Clear to auscultation bilat Cardiovascular: Regular Rate/Rhythm Abdomen: Non-tender, Non-distended, Normoactive bowel tones, Soft Extremities: No cyanosis/clubbing/edema bilat Neurological: Grossly Neurologically Intact IVs and Medications Medications Reviewed: Medications were reviewed in detail Lab and Diagnostics Result Diagram: 01/05/17 0635 01/07/17 0635 Microbiology Urine/blood negative from 12/28 and 12/29 X-Rays, CTs and MRIs CXR 1. No acute cardiopulmonary disease. 2. Moderate-sized hiatal hernia again noted. Dictated by: Kane Dangelo M.D. on 12/28/2016 at 16:19 CT Brain 1. No acute intracranial process. 2. Moderate atrophy and chronic microvascular ischemic changes. Dictated by: Fannie Tabraes M.D. on 12/28/2016 at 14:56 12-lead ECG EKG from 12/28 concurrently reviewed by Fina rate of 89, QTC 439 ms sinus rhythm LVH with secondary repolarization abnormality Old inferior infarct Anterior ST elevation probably due to LVH Additional Diagnostics CT CHEST WITHOUT CONTRAST: Kane Dangelo M.D. on 12/31/2016 at 17:55 1. Interval central cavitation of a peripheral left upper lobe nodule. Given the prior medial bibasilar consolidation, findings likely represent sequelae of an atypical infection such as from fungal etiologies or atypical bacteria. Other differential considerations such as septic emboli or noninfectious inflammatory etiologies are not excluded but are less likely. 2. Septal thickening in the lung suggesting pulmonary edema. 3. Small residual clustered ground glass nodules in the right lung suggesting a mild infectious or inflammatory process. 4. Moderate to large hiatal hernia. 5. Small amount of perisplenic free fluid. Dictated by: Kane Dangelo M.D. on 12/31/2016 at 17:55 CT ANGIO CHEST PULMONARY EMBOLISM: Fannie Tabares M.D. on 11/05/2016 at 16:04 1. Heterogeneous filling defects predominantly within the right upper and middle bladder lobes within the tertiary branches of the pulmonary artery most consistent with pulmonary emboli. 2. Bilateral appearance of prominent groundglass like opacities within the lungs bilaterally. These can be seen with infection or inflammation. 3. Marked interval increase in size of previously identified sub-centimeters right upper lobe nodule, concerning for neoplastic disease. In addition, the lungs demonstrate interval development of bilateral pleural effusions as well as ill-defined areas of nodular coarsening. The latter could be related to areas of edema or poorly visualized areas of nodularity partially obscured by groundglass opacities and effusions. Recommend interval followup to document resolution. Dictated by: Fannie Tabares M.D. on 11/05/2016 at 16:04 Approved by: Fannie Tabares M.D. on 11/05/2016 at 16:12 Assessment & Plan 71-year-old female with a history of severe MR, PEs 3, CAD, hypertension, CHF, COPD, hyperlipidemia, A. fib, ventricular alcoholism, chronic pain, prior overdose, and report of multiple pulmonary masses that has not been worked up. Patient was on hospice and this morning when she became more confused hospice was suspended so she can be seen in the ED. # Acute on chronic encephalopathy versus dementia and behavioral disorder; present on admission - Had been improving till 01/07 but today patient seems quite agitated and paranoid - Continue with supportive care - Patient reportedly using alcohol and benzodiazepines at home - Appreciate Psychiatry consult. Will followup with further recs: 1. Increase mirtazapine to 15 mg nightly. 2. Continue quetiapine and lorazepam as ordered. 3. Patient should be assessed for suicidal ideation by STUFFING MACHINE OPERATOR at the time of discharge and if reporting suicidal ideation may need referral to [facility]. # Pulmonary masses; present on admission; ongoing - Previous workup declined and patient placed on hospice - Appreciate ID and pulmonology consult. Will followup with recommendations - QuantiFERON gold. - Patient without any cough or sputum for AFB culture and Nucleic acid amplification with DNA probe - Coccidioidomycosis serologies. # Acute kidney injury, present on admission. Resolved - Resolved with IVF. - Avoid nephrotoxic meds # Acute hypokalemia, not present on admission. Resolved # Acute hyperkalemia, present on admission. Resolved. - Patient presented with a potassium 7.2 and hyperkalemia protocol was initiated # Chronic pain - Continue with supportive care # History of pulmonary embolism on 10/2016 - Per discussion with patient and her on 01/07/17 will stop Warfarin and all other anticoagulation as patient refusing while expressing clear verbal understanding of the risks. Her agrees and supports her stopping anticoagulation treatment. # Goals of care - Appreciate palliative care consult. Will followup with recommendations. Disposition: ? home vs SNF pending improved behavior and pulmonary workup noted above VTE Mechanical Devices: Venous Foot Pump Resuscitation Status: DNR/DNI:Do Not Resuscitate/Intubate (per her -- will need to review tomorrow) Nicolas Rendon Jan 09, 2017 16:08
[2017-01-09 18:16] LABS: COLOR,URINE YELLOW (YELLOW)
[2017-01-09 18:17] LABS: APPEARANCE,URINE CLOUDY (CLEAR,HAZY); OCCULT BLOOD,URINE SMALL (NEGATIVE); PH,URINE 5.5 (5.0-8.0); UROBILINOGEN,URINE NORMAL (NORMAL)
[2017-01-09] MEDS: LORazepam 2 mg Tablet PO PRN (21:24)
[2017-01-10] MEDS: LORazepam 2 mg Tablet PO PRN ×3 (02:06→18:16)
[2017-01-10] MEDS: oxyCODONE-Acetamin 5-325 mg Tablet PO PRN ×2 (11:18→18:16)
[2017-01-10] MEDS: Multivit-Miner-Folic Acid-Iron Tablet PO SCH (11:19)
--- NOTE | 2017-01-10 17:28 | PCM.PNMED ---
Subjective Date of Service Jan 10, 2017 Subjective Denies any new physical issues/complaints. Exam Vital Signs Vital Sign - Last Date Time Temp Pulse Resp B/P Pulse Ox O2 Delivery O2 Flow Rate FiO2 01/08/17 10:46 70 01/08/17 10:10 36.7 16 129/73 96 Room Air 01/06/17 06:13 6.00 Intake and Output 01/09/17 01/09/17 01/10/17 Cumulative From/Thru 15:00 23:00 07:00 12/28/16 15:35 - 01/10/17 06:26 Intake Total 520 ml 600 ml 13439 ml Output Total 500 ml 700 ml 55052 ml Balance 20 ml -100 ml 2707 ml Intake Oral 520 ml 600 ml 78447 ml IV Total 7546 ml Output Urine Total 500 ml 700 ml 16299 ml Stool Total 1200 ml # Voids 2 22 # Bowel Movements 0 0 19 Exam General: Alert, No Acute Distress Head: Normal Eyes: Scleral Anicteric Nose: Mucous Membr Moist/[place] Mouth: Mucous Membr Moist/[place] Neck: Supple Chest & Lungs: Chest Wall Normal, Clear to auscultation bilat Cardiovascular: Regular Rate/Rhythm Abdomen: Non-tender, Non-distended, Normoactive bowel tones, Soft Extremities: No cyanosis/clubbing/edema bilat Neurological: Grossly Neurologically Intact IVs and Medications Medications Reviewed: Medications were reviewed in detail Lab and Diagnostics Result Diagram: 01/05/17 0635 01/07/17 0635 Microbiology Urine/blood negative from 12/28 and 12/29 X-Rays, CTs and MRIs CXR 1. No acute cardiopulmonary disease. 2. Moderate-sized hiatal hernia again noted. Dictated by: Kane Dangelo M.D. on 12/28/2016 at 16:19 CT Brain 1. No acute intracranial process. 2. Moderate atrophy and chronic microvascular ischemic changes. Dictated by: Fannie Tabares M.D. on 12/28/2016 at 14:56 12-lead ECG EKG from 12/28 concurrently reviewed by Fina rate of 89, QTC 439 ms sinus rhythm LVH with secondary repolarization abnormality Old inferior infarct Anterior ST elevation probably due to LVH Additional Diagnostics CT CHEST WITHOUT CONTRAST: Kane Dangelo M.D. on 12/31/2016 at 17:55 1. Interval central cavitation of a peripheral left upper lobe nodule. Given the prior medial bibasilar consolidation, findings likely represent sequelae of an atypical infection such as from fungal etiologies or atypical bacteria. Other differential considerations such as septic emboli or noninfectious inflammatory etiologies are not excluded but are less likely. 2. Septal thickening in the lung suggesting pulmonary edema. 3. Small residual clustered ground glass nodules in the right lung suggesting a mild infectious or inflammatory process. 4. Moderate to large hiatal hernia. 5. Small amount of perisplenic free fluid. Dictated by: Kane Dangelo M.D. on 12/31/2016 at 17:55 CT ANGIO CHEST PULMONARY EMBOLISM: Fannie Tabares M.D. on 11/05/2016 at 16:04 1. Heterogeneous filling defects predominantly within the right upper and middle bladder lobes within the tertiary branches of the pulmonary artery most consistent with pulmonary emboli. 2. Bilateral appearance of prominent groundglass like opacities within the lungs bilaterally. These can be seen with infection or inflammation. 3. Marked interval increase in size of previously identified sub-centimeters right upper lobe nodule, concerning for neoplastic disease. In addition, the lungs demonstrate interval development of bilateral pleural effusions as well as ill-defined areas of nodular coarsening. The latter could be related to areas of edema or poorly visualized areas of nodularity partially obscured by groundglass opacities and effusions. Recommend interval followup to document resolution. Dictated by: Fannie Tabares M.D. on 11/05/2016 at 16:04 Approved by: Fannie Tabares M.D. on 11/05/2016 at 16:12 Assessment & Plan 71-year-old female with a history of severe MR, PEs 3, CAD, hypertension, CHF, COPD, hyperlipidemia, A. fib, ventricular alcoholism, chronic pain, prior overdose, and report of multiple pulmonary masses that has not been worked up. Patient was on hospice and this morning when she became more confused hospice was suspended so she can be seen in the ED. # Acute on chronic encephalopathy versus dementia and behavioral disorder; present on admission - Had been improving till 01/07 but today patient seems quite agitated and paranoid - Continue with supportive care - Patient reportedly using alcohol and benzodiazepines at home - Appreciate Psychiatry consult. Will followup with further recs: 1. Increase mirtazapine to 15 mg nightly. 2. Continue quetiapine and lorazepam as ordered. 3. Patient should be assessed for suicidal ideation by LIVESTOCK JUDGING COACH at the time of discharge and if reporting suicidal ideation may need referral to [facility]. # Pulmonary masses; present on admission; ongoing - Previous workup declined and patient placed on hospice - Appreciate ID and pulmonology consult. Will followup with recommendations - QuantiFERON gold negative - Patient without any cough or sputum for AFB culture and Nucleic acid amplification with DNA probe - Coccidioidomycosis serologies. (Ag negative. Ab pending) # Acute kidney injury, present on admission. Resolved - Resolved with IVF. - Avoid nephrotoxic meds # Acute hypokalemia, not present on admission. Resolved # Acute hyperkalemia, present on admission. Resolved. - Patient presented with a potassium 7.2 and hyperkalemia protocol was initiated # Chronic pain - Continue with supportive care # History of pulmonary embolism on 10/2016 - Per discussion with patient and her on 01/07/17 will stop Warfarin and all other anticoagulation as patient refusing while expressing clear verbal understanding of the risks. Her agrees and supports her stopping anticoagulation treatment. # Goals of care - Appreciate palliative care consult. Will followup with recommendations. Disposition: ? home vs SNF pending improved behavior and pulmonary workup noted above VTE Mechanical Devices: Venous Foot Pump Resuscitation Status: DNR/DNI:Do Not Resuscitate/Intubate (per her -- will need to review tomorrow) Time spent 30 minutes spent face to face with patient and her answering questions and discussing possible disposition from the hospital and plan of care Nicolas Rendon Jan 10, 2017 17:28
--- NOTE | 2017-01-10 17:50 | PROG NOTE ---
[address] [address] PROGRESS NOTE PATIENT: VENANCIO GOMEZ : 1945 MR#: [id number] ADMIT: 12/28/2016 JOB ID: [id number] DATE: 01/10/2017 INFECTIOUS DISEASE FOLLOWUP NOTE: REASON FOR FOLLOWUP: Cavitary lung lesion, thin walled. INTERVAL HISTORY: The patient has not yet provided any sputum samples and is not currently motivated to do so. She has no fevers, chills, or sweats, and no new pulmonary complaint. PHYSICAL EXAMINATION: Reveals an afebrile woman. No acute distress. Temp 36.7, pulse 70, respiratory rate 16, blood pressure 129/73. She is saturating well on room air and is in no acute distress. She has a variety of complaints about her and her current social situation but voices no new focal complaints otherwise. The patient's lungs are relatively clear and unchanged from yesterday. No skin rash. No change in mental status. LABORATORY STUDIES: White blood count was last measured several days ago and was 3400. We have no other new test other than the important coccidiomycosis antibodies which have come back negative. The cryptococcal antigen is negative. Fungitell is negative and a QuantiFERON Gold is negative. The patient also has a urinalysis with over 50 white cells and a urine culture which is growing what appears to be E. coli. IMPRESSION: This is a patient who developed a cavitary infiltrate in the left upper lobe at the site of a prior nodule. There was concern about tuberculosis; but, in view of the fact that the QuantiFERON Gold is completely negative with a positive mitogen, I think it is very very unlikely. 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 RECOMMENDATIONS: 1. I am no longer concerned about the possibility of tuberculosis and think the patient could be discharged without regard to TB concerns. 2. Note that the patient is not producing sputum and does not plan to, and so I think that there is little else we can do in terms of evaluation of this cavity short of pulmonary interventions such as bronchoscopy or needle biopsy. 3. The patient may have a urinary tract infection. If she has dysuria to go with this pyuria and positive urine culture, it may be reasonable to give her a very short course of an oral urinary tract antiseptic such as fosfomycin perhaps in a single dose. 4. ID will go ahead and sign off at this time. 5. This case discussed with Dr. Rendon.
[2017-01-11] MEDS: Multivit-Miner-Folic Acid-Iron Tablet PO SCH (09:26)
[2017-01-11 12:58] VITALS: BP 93/49; PULSE 118; RESP 18; O2SAT 93
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
[2017-01-11] MEDS: LORazepam 2 mg Tablet PO PRN (14:05)
[2017-01-11 15:11] LABS: Antiproteinase 3 (PR-3) Abs <3.5 U/mL (0.0-3.5); Perinuclear (P-ANCA) <1:20 titer (Neg:<1:20)
[2017-01-11] MEDS ORDERED: LEVO200T6 PO (16:36)
[2017-01-11] MEDS ORDERED: MIRT15TA6 PO (16:36)
[2017-01-11] MEDS ORDERED: LORA1TAB PO (16:36)
[2017-01-11] MEDS ORDERED: OXYC-474 PO (16:36)
[2017-01-11] MEDS ORDERED: QUET25TA73 PO ×2 (16:36)
[2017-01-11] MEDS ORDERED: LISI10TA PO (16:36)
--- NOTE | 2017-01-11 16:41 | PCM.DIMED ---
Discharge Instructions Date of Service Jan 11, 2017 Dates of Hospitalization Dec 28, 2016 at 17:38 Discharge Diagnosis Discharge Diagnosis # Acute on chronic encephalopathy versus dementia and behavioral disorder; present on admission. Improved # Pulmonary masses as well as cavitary infiltrate in the left upper lobe; present on admission; ongoing and unclear etiology # Acute kidney injury, present on admission. Resolved # Acute hypokalemia, not present on admission. Resolved # Acute hyperkalemia, present on admission. Resolved. # Chronic pain # History of pulmonary embolism on 10/2016. No longer on anticoagulation per patient's wishes # Hypothyroidism - Thyroid panel study ordered and results pending which will require followup by primary care provider # Hypertension. Chronic. Stable. Diet Discharge Diet: Heart Healthy Activity Discharge Activity: No restrictions Call your provider Call your provider for: Fever or Chills, Shortness of breath, Bleeding, Chest pain Patient Instructions Patient Instructions 1. Followup with primary care provider within one week Follow-up plan Seek immediate medical attention if any new or worsening signs or symptoms occur. Follow-up Provider: Davin Galan MD Follow-up with PCP in: 1 week Nicolas Rendon Jan 11, 2017 16:41
[2017-01-11] MEDS: oxyCODONE-Acetamin 5-325 mg Tablet PO PRN (17:14)
[2017-01-11] MEDS ORDERED: LORazepam 0.5 mg Tablet PO PRN (17:15)
--- NOTE | 2017-01-11 18:31 | PCM.DC.MED ---
Discharge Summary Date of Service Jan 11, 2017 Dates of Hospitalization Date of Hospital Admission Dec 28, 2016 at 17:38 Date of Discharge: Jan 11, 2017 Providers: Admitting Physician: Burt Pearl MD Primary Care Physician: Davin Galan MD Attending Physician: Burt Pearl MD Diagnosis at Time of Discharge Diagnosis at Time of Discharge # Acute on chronic encephalopathy versus dementia and behavioral disorder; present on admission. Improved # Pulmonary masses as well as cavitary infiltrate in the left upper lobe; present on admission; ongoing and unclear etiology # Acute kidney injury, present on admission. Resolved # Acute hypokalemia, not present on admission. Resolved # Acute hyperkalemia, present on admission. Resolved. # Chronic pain # History of pulmonary embolism on 10/2016. No longer on anticoagulation per patient's wishes # Hypothyroidism - Thyroid panel study ordered and results pending which will require followup by primary care provider # Hypertension. Chronic. Stable. Consultations 1. ID 2. Pulmonology 3. Psychiatry 4. Palliative Care Procedures XRay, CTs & MRIs CXR 1. No acute cardiopulmonary disease. 2. Moderate-sized hiatal hernia again noted. Dictated by: Kane Dangelo M.D. on 12/28/2016 at 16:19 CT Brain 1. No acute intracranial process. 2. Moderate atrophy and chronic microvascular ischemic changes. Dictated by: Fannie Tabares M.D. on 12/28/2016 at 14:56 ECG 12 Lead EKG from 12/28 concurrently reviewed by Fina rate of 89, QTC 439 ms sinus rhythm LVH with secondary repolarization abnormality Old inferior infarct Anterior ST elevation probably due to LVH Other Diagnostics CT CHEST WITHOUT CONTRAST: Kane Dangelo M.D. on 12/31/2016 at 17:55 1. Interval central cavitation of a peripheral left upper lobe nodule. Given the prior medial bibasilar consolidation, findings likely represent sequelae of an atypical infection such as from fungal etiologies or atypical bacteria. Other differential considerations such as septic emboli or noninfectious inflammatory etiologies are not excluded but are less likely. 2. Septal thickening in the lung suggesting pulmonary edema. 3. Small residual clustered ground glass nodules in the right lung suggesting a mild infectious or inflammatory process. 4. Moderate to large hiatal hernia. 5. Small amount of perisplenic free fluid. Dictated by: Kane Dangelo M.D. on 12/31/2016 at 17:55 CT ANGIO CHEST PULMONARY EMBOLISM: Fannie Tabares M.D. on 11/05/2016 at 16:04 1. Heterogeneous filling defects predominantly within the right upper and middle bladder lobes within the tertiary branches of the pulmonary artery most consistent with pulmonary emboli. 2. Bilateral appearance of prominent groundglass like opacities within the lungs bilaterally. These can be seen with infection or inflammation. 3. Marked interval increase in size of previously identified sub-centimeters right upper lobe nodule, concerning for neoplastic disease. In addition, the lungs demonstrate interval development of bilateral pleural effusions as well as ill-defined areas of nodular coarsening. The latter could be related to areas of edema or poorly visualized areas of nodularity partially obscured by groundglass opacities and effusions. Recommend interval followup to document resolution. Dictated by: Fannie Tabares M.D. on 11/05/2016 at 16:04 Approved by: Fannie Tabares M.D. on 11/05/2016 at 16:12 Brief History As noted in H&P by Dr. Jackson: 71-year-old female with a history of severe MR, PEs 3, CAD, hypertension, CHF, COPD, hyperlipidemia, A. fib, ventricular alcoholism, chronic pain, prior overdose, and report of multiple pulmonary masses that has not been worked up. Patient is on hospice and this morning when she became more confused hospice was suspended so she can be seen in the ED. Her states that she was yelling at him was very worked up before becoming very confused, somnolent versus lethargic, but at the same time more combative. Over the last month or so she is been deteriorating 3 days before presentation she had bradycardia episode with episode of hypotension and 70/40. When she was initially examined by the emergency department she complained of dyspnea and back pain which resolved after albuterol. Placement blood work showed relatively benign CBC, hyperkalemia, hypochloremia, and acute kidney injury with a creatinine of 3.75. Patient also had a mild hypercalcemia. Carbatrol level was checked and was low at 10.1 and alcohol is negative. Blood cultures were obtained. CT of the brain showed no acute intracranial process although there were some microvascular ischemic changes. Chest x-ray showed moderate-sized hiatal hernia otherwise was benign. Patient did have a couple runs of non-sustained, asymptomatic vtach in the ED and was treated with hyperkalemia protocol. Discussion with patient's and he wishes for the patient to continue to receive workup, including workup which was previously deferred on her pulmonary masses that were not seen on chest x-ray, but were identified on CT of the chest on 11/24/2016 Hospital Course # Acute on chronic encephalopathy versus dementia and behavioral disorder; present on admission. Improved - Continued with supportive care - Patient reportedly using alcohol and benzodiazepines at home - Appreciate Psychiatry consult. Will followup with further recs: 1. Increase mirtazapine to 15 mg nightly. 2. Continue quetiapine and lorazepam as noted below - On afternoon on 01/10 patient was cleared from ID standpoint and she demanded to leave. She was assessed for suicidal ideation by [employer] at the time of discharge [facility] was notified and patient was detained per [facility]. She was seen by psychiatry consult (Dr. Lyon) on 01/11 who does not feel that patient is suicidal, homicidal or with intent to hurt herself or anyone else at this time and thus has reversed and cancelled [facility]'s shelter order and has cleared the patient for discharge home. Before clearing patient for discharge Dr. Lyon and I had a meeting with patient her and patient's daughter all of whom are in agreement with patient going home at this time. Patient and family further agree that if patient were to deteriorate and come back to hospital that patient does not wish to have any medical intervention or workup at that time and merely wishes to be kept comfortable and to be comfort care only. # Pulmonary masses as well as cavitary infiltrate in the left upper lobe; present on admission; ongoing - Previous workup declined and patient placed on hospice - Appreciate ID and pulmonology consult. Will followup with recommendations - QuantiFERON gold negative - Patient without any cough or sputum for AFB culture and Nucleic acid amplification with DNA probe - Coccidioidomycosis serologies. (Ag negative) - Cleared for discharge home by ID on 01/10 - Patient says if it turns out that she has bacterial or fungal infection she does not wish to be treated for it. # Acute kidney injury, present on admission. Resolved - Resolved with IVF. - Avoid nephrotoxic meds # Acute hypokalemia, not present on admission. Resolved # Acute hyperkalemia, present on admission. Resolved. - Patient presented with a potassium 7.2 and hyperkalemia protocol was initiated # Chronic pain - Continue with supportive care # History of pulmonary embolism on 10/2016 - Per discussion with patient and her on 01/07/17 will stop Warfarin and all other anticoagulation as patient refusing while expressing clear verbal understanding of the risks. Her agrees and supports her stopping anticoagulation treatment. # Hypothyroidism - TSH initially normal but on repeat on 01/10 it is elevated. This is in setting of patient refusing most of her medications during this hospital. Full thyroid panel has been ordered and is pending. Patient will be discharged home with prescription for her home dose Synthroid and recommendation to followup with PCP for further adjustment if needed. # History of hypertension with periods of hypotension during this hospital - Will be discharged on lower dose of Lisinopril at 10mg daily # Goals of care - Appreciate palliative care consult. - As noted above if she is brought back to hospital she does not wish any workup or treatment in the ED other than being placed on comfort care only. Exam Vital Signs (Last) Date Time Temp Pulse Resp B/P Pulse Ox O2 Delivery O2 Flow Rate FiO2 01/11/17 12:58 36.3 118 18 93/49 93 Room Air 01/06/17 06:13 6.00 Exam General: Alert, No Acute Distress Head: Normal Eyes: Scleral Anicteric Nose: Mucous Membr Moist/[place] Mouth: Mucous Membr Moist/[place] Neck: Supple Chest & Lungs: Chest Wall Normal, Clear to auscultation bilat Cardiovascular: Regular Rate/Rhythm Abdomen: Non-tender, Non-distended, Normoactive bowel tones, Soft Extremities: No cyanosis/clubbing/edema bilat Neurological: Grossly Neurologically Intact Test 12/28/16 15:46 12/28/16 16:44 12/29/16 05:48 01/01/17 05:55 Alcohols < 10mg/dL (0-10) Lactic Acid Level 1.2mmol/L (0.4-2.0) Ammonia 41ug/dL (18-53) Phenobarbital Level 10.1ug/mL (15.0-40.0) Phosphorus Level 4.5mg/dL (2.5-4.9) Procalcitonin 0.17ng/mL (0.00-0.08) Total Bilirubin 0.2mg/dL (0.0-1.2) Aspartate Amino Transf (AST/SGOT) 15U/L (0-50) Alanine Aminotransferase (ALT/SGPT) 15U/L (0-32) Alkaline Phosphatase 73U/L (25-165) Total Protein 5.6g/dL (6.4-8.4) Albumin 3.0g/dL (3.4-5.0) Test 01/04/17 10:55 01/05/17 06:35 01/07/17 06:35 01/08/17 07:00 Coccidioides Antibody Negative (Neg:<1:2) Fungal Antibodies <31pg/mL (<80) TB Test (QFT) Gold In Tube Negative (Negative) TB Test (QFT) Incubation Comment (.) TB Test (QFT) Mitogen 1.06IU/mL (.) TB Test (QFT) Antigen 0.07IU/mL (.) TB Test (QFT) Antigen Minus Nil 0.02IU/mL (.) TB Test (QFT) TB - Nil 0.05IU/mL (.) TB Test (QFT) Positive Criteria Comment (.) TB Test (QFT) Interpretation Comment (.) White Blood Count 3.4th/mm3 (3.8-10.1) Red Blood Count 3.34mil/mm3 (3.90-5.20) Hemoglobin 9.6g/dL (12.0-15.6) Hematocrit 30.0% (35.0-46.0) Mean Corpuscular Volume 89.8fL (81-100) Mean Corpuscular Hemoglobin 28.7pg (27.0-35.0) Mean Corpuscular Hemoglobin Concent 32.0% (32.0-37.0) Red Cell Distribution Width 16.2% (12.3-15.4) Platelet Count 187bil/L (150-400) Neutrophils (%) (Auto) 52.6% (40-74) Lymphocytes (%) (Auto) 28.2% (14-46) Monocytes (%) (Auto) 12.1% (4-12) Eosinophils (%) (Auto) 5.6% (0-5) Basophils (%) (Auto) 0.9% (0-3) Sodium Level 140mEq/L (134-144) Potassium Level 4.0mEq/L (3.5-5.2) Chloride Level 107mEq/L (97-108) Carbon Dioxide Level 22mmol/L (18-29) Blood Urea Nitrogen 14mg/dL (8-27) Creatinine 0.75mg/dL (0.57-1.00) Estimat Glomerular Filtration Rate 110mL/min (>59) Glucose Level 87mg/dL (60-99) Calcium Level 9.3mg/dL (8.5-10.1) Magnesium Level 1.8mg/dL (1.6-2.6) Prothrombin Time 10.6sec (8.1-12.5) Prothromb Time International Ratio 0.99ratio Myeloperoxidase <9.0U/mL (0.0-9.0) Cytoplasmic ANCA (c-ANCA) Antibody <1:20titer (Neg:<1:20) Proteinase 3 (PR3) Antibodies <3.5U/mL (0.0-3.5) Atypical p-ANCA <1:20titer (Neg:<1:20) Perinuclear ANCA (p-ANCA) Antibody <1:20titer (Neg:<1:20) Cryptococcus Antigen Negative (Negative) Test 01/09/17 17:51 01/09/17 18:00 01/11/17 12:00 Hold Urine Received (Received) Urine Color Yellow (YELLOW) Urine Appearance Cloudy (CLEAR,HAZY) Urine pH 5.5 (5.0-8.0) Urine Specific [place] 1.005 (1.003-1.035) Urine Protein Tracemg/dL (NEG,TRACE) Urine Glucose (UA) Negativemg/dL (NEGATIVE) Urine Ketones Negativemg/dL (NEGATIVE) Urine Occult Blood Small (NEGATIVE) Urine Nitrite Positive (NEGATIVE) Urine Bilirubin Negative (NEGATIVE) Urine Urobilinogen Normalmg/dL (NORMAL) Urine Leukocyte Esterase Large (NEGATIVE) Urine RBC 0-2/hpf (0-2) Urine WBC >50/hpf (0-5) Urine Epithelial Cells Few/hpf (NONE-MOD) Urine Crystals None seen (NONE SEEN) Urine Bacteria Few/hpf (NONE-FEW) Urine Hyaline Casts None/lpf (NONE) Urine Granular Casts None seen (NONE SEEN) Urine Waxy Casts None seen (NONE SEEN) Urine Red Blood Cell Casts None seen (NONE SEEN) Urine White Blood Cell Casts None seen (NONE SEEN) Urine Mucus None seen (None Seen) Urine Trichomonas None seen (NONE SEEN) Urine Yeast None (NONE SEEN) Urinalysis Comment None Urine Culture Reflexed Indicated Urine Opiates Screen Negative Urine Methadone Screen Negative Urine Barbiturates Screen Positive Urine Amphetamines Screen Negative Urine Benzodiazepines Screen Positive Urine Cocaine Metabolite Screen Negative Urine Cannabinoids Screen Negative Microbiology Results Urine/blood negative from 12/28 and 12/29 Discharge Medications Discharge Medications Levothyroxine (Levothyroxine) 200 Mcg Tablet 200 MCG PO QAM Prescribed by: MARIELOS OLIVERA MD Lisinopril (Lisinopril) 10 Mg Tablet 10 MG PO DAILY Prescribed by: MARIELOS OLIVERA MD Mirtazapine (Mirtazapine) 15 Mg Tablet 15 MG PO HS Prescribed by: MARIELOS OLIVERA MD Quetiapine Fumarate (Quetiapine Fumarate) 25 Mg Tablet 25 MG PO 08,12,16 Prescribed by: MARIELOS OLIVERA MD Quetiapine Fumarate (Quetiapine Fumarate) 25 Mg Tablet 50 MG PO HS Prescribed by: MARIELOS OLIVERA MD As needed Albuterol Neb Soln (Albuterol Neb Soln) 2.5 Mg/3 Ml Vial.neb 2.5 MG INHALATION Q4H PRN PRN For Shortness of Breath (Reported) Ipratropium/Albuterol Sulfate (Iprat-Albut 0.5-3(2.5) mg/3 mL Inhalant Soln) 3 Ml Ampul.neb 3 ML IH Q6 PRN PRN For Shortness of Breath (Reported) Levalbuterol (Levalbuterol) 0.63 Mg/3 Ml Vial.neb 0.63 MG INHALATION Q2H PRN PRN For Shortness of Breath (Reported) Lorazepam (Lorazepam) 1 Mg Tablet 1-2 MG PO Q4H PRN PRN For Anxiety Prescribed by: MARIELOS OLIVERA MD Ondansetron ODT (Ondansetron ODT) 4 Mg Tab.rapdis 8 MG PO QID PRN PRN For Nausea /Vomiting (Reported) Oxycodone (Roxicodone) 5 Mg Tablet 5 MG PO Q6H PRN PRN For Pain Prescribed by: MARIELOS OLIVERA MD Sennosides (Senna) 8.6 Mg Tablet 1-4 TAB PO BID PRN PRN For Constipation ( Reported) Followup Plan Disposition: Home Follow-up plan Seek immediate medical attention if any new or worsening signs or symptoms occur. Discharge Diet: Heart Healthy Discharge Activity: No restrictions Patient Instructions 1. Followup with primary care provider within one week Follow-up Provider: Davin Galan MD Follow-up with PCP in: 1 week Time spent 45 min copies to: Davin Galan MD, Masoud Jan 11, 2017 18:31
[2017-01-12 06:12] LABS: Free Thyroxine Index 0.2 (1.2-4.9); Thyroxine (T4) 0.9 ug/dL (4.5-12.0)
== END 2017-01-11 17:31 | disposition home or self-care (01) | DRG 71 ==
LOC: SED 15:15 → EDUNIT# 15:15 → EDBD 15:15 → PCC 17:38 → MPC 12-31 12:41
PROVIDERS: ADMIT Internal Medicine; ATTEND Internal Medicine
DX: G93.40 Encephalopathy, unspecified (principal); N17.9 Acute kidney failure, unspecified; F10.231 Alcohol dependence with withdrawal delirium; F33.9 Major depressive disorder, recurrent, unspecified; I47.2 Ventricular tachycardia; F91.8 Other conduct disorders; E87.5 Hyperkalemia; Y90.0 Blood alcohol level of less than 20 mg/100 ml; Z86.711 Personal history of pulmonary embolism; Z79.01 Long term (current) use of anticoagulants; I34.0 Nonrheumatic mitral (valve) insufficiency; F17.200 Nicotine dependence, unspecified, uncomplicated; Z66 Do not resuscitate; G89.29 Other chronic pain; J44.9 Chronic obstructive pulmonary disease, unspecified; J45.909 Unspecified asthma, uncomplicated; R91.1 Solitary pulmonary nodule